=== PATIENT | female | born 1960 | race Caucasian/White ===

== ENCOUNTER 2023-08-06 11:04 | Outpatient (OUT) | payer BC, SELFPAY ==
--- NOTE | 2023-08-06 | CONS_ITS ---
CONSULTATION DATE: 08/06/2023 TO: Dr. [place] CHIEF COMPLAINT: Includes severe bilateral lower back pain, hip pain and leg pain. HISTORY OF PRESENT ILLNESS: Review of systems, past medical/surgical history were obtained and documented on the health questionnaire and is available upon request. She is a 63-year-old female, reports having had pain since 2021. It occurred spontaneously, increased gradually to its present state, which she complains of 8/10 pain, described as a dull, aching pain with a sharp component. It seems to increase with activities such as standing, walking and performing transitioning maneuvers. She feels most comfortable in the semi-recumbent position. She denies any change in bowel and bladder habits or new sensory motor change in the lower extremities. CURRENT MEDICATION: Includes Xanax 0.5 mg daily, Cymbalta 30 mg daily, Lyrica 300 mg daily. She reports the Lyrica does not seem to be helping her to any significant degree, but she reports some relief with the Cymbalta. EXAM: On examination, patient has no clinical symptoms consistent with radiculopathy or myelopathy involving the lower extremities. Patient had dysesthesia and hyperesthesia along the distribution of the superior gluteal nerve bilaterally, severe myofascial spasm of the gluteus medius bilaterally. Hamstrings were also quite painful with minimal stretching, as well as gastrocnemius complex. She had severe pain with lumbar facet joint loading maneuvers, occurring bilaterally, worse on the right than the left side and significant myofascial spasm of the erector spinae muscle occurring bilaterally. IMPRESSION: Patient with chronic pain secondary to multiple etiologies, neuritis involving the superior gluteal nerve, lumbosacral spondylosis at L4-5, L5-S1 clinically, occurring bilaterally; myofascial dysfunction involving the hamstrings primarily, gluteus medius, erector spinae and gastrocnemius/soleus complex. RECOMMENDATIONS: I recommend that she consider diagnostic bilateral superior gluteal nerve injection, followed by a diagnostic medial branch block under fluoroscopic guidance. She has significant etiology in both of these areas and will complete a pain diary for the first two hours post procedurally. I have added baclofen to her regimen, 10 mg pills, half to one pill t.i.d. I have asked her to wean off the Lyrica and reserve Xanax only as an as needed basis. Will start her on baclofen 10 mg pills, half a pill to one pill t.i.d. as stated earlier, aquatic therapy. I have gone over the details of the procedure with the patient. All her questions were answered. She agrees to proceed with the outlined plan. As part of providing excellent, safe, comprehensive care, the following was completed at our patient's visit: 1. A medication reconciliation and review to ensure accurate knowledge of current/active medications, including asking our patients to inform us about any dunx-rzh-yjdknal medications or herbal remedies/nutritional supplements/alternative remedies. 2. A review to specifically ensure our patients have had annual screening for: elevated body mass index (BMI, see intake chart for exact total), tobacco use, screening for depression, and screening for unhealthy alcohol use. When screening is concerning, patients are provided with education and the specific recommendation to discuss the concerning health issue and treatment options with their primary care provider. GENEVIEVE
== END 2023-08-06 11:05 | disposition home or self-care (01) ==
LOC: PM 11:04
PROVIDERS: Visit Provider Anesthesiology Pain Medicine
DX: M54.50 Low back pain, unspecified (principal); M25.551 Pain in right hip; M79.604 Pain in right leg; M79.605 Pain in left leg; M25.552 Pain in left hip; M47.816 Spondylosis without myelopathy or radiculopathy, lumbar region
CPT/HCPCS: G0463

== ENCOUNTER 2023-09-03 09:31 | Day surgery (SDC) | payer BC, SELFPAY ==
[2023-09-03 10:18] VITALS: BP 131/91; PULSE 54; TEMP 36.3; O2SAT 100
[2023-09-03 11:05] VITALS: BP 141/78; PULSE 76; O2SAT 94
[2023-09-03 11:06] VITALS: BP 161/77; PULSE 68; O2SAT 95
[2023-09-03] MEDS: BUPIVACAINE HCL 0.25% PF 25 MG/10 ML VIAL 4 ML INJ (11:10)
--- NOTE | 2023-09-03 11:35 | W.PM.PROCNOT ---
Date of procedure: 09/03/23 Pre-op diagnosis: Bilateral superior gluteal neuritis Post-op diagnosis: same as pre-op Procedure: Bilateral Superior gluteal nerve block, diagnostic Performed under fluoroscopic guidance Immediate complications none Anesthesia: none Solution used for injection: In each syringe, 2 milliliters 0.25% Marcaine 2.5 mL is used for injection for each side Time out process compliant After informed consent obtained patient was brought to the procedure room placed in the prone position skin overlying the area was prepped and draped in a sterile fashion using betadine. 25 gauge spinal needle Insert over each of the target areas identified in fluoroscopy corresponding needles were advanced Under fluoroscopic guidance until the target/targets encountered, no indication of intravascular or Intraneuronal needle tip placement. Solution injected.needles removed post procedurally. patient transferred to recovery room in stable condition to be discharged home after meeting criteria Anesthesia: Local Surgeon: Michelle Martinez Condition: stable
== END 2023-09-03 11:13 | disposition home or self-care (01) ==
LOC: SURGOUT 09:31
PROVIDERS: Visit Provider Anesthesiology Pain Medicine
DX: G57.81 Other specified mononeuropathies of right lower limb (principal); G57.82 Other specified mononeuropathies of left lower limb
CPT/HCPCS: 64450; J0665

== ENCOUNTER 2023-09-17 13:40 | Outpatient (OUT) | payer BC, SELFPAY ==
--- NOTE | 2023-09-17 | CONS_ITS ---
CONSULTATION DATE: 09/17/2023 TO: Sukhwinder [place] D.O. CHIEF COMPLAINT: Includes right hip pain, right buttock pain. HISTORY: She rates the pain as a 5/10, deep aching character with a stabbing component, increased with activities such as standing, walking and performing transitioning maneuvers. She feels most comfortable in the semi-recumbent position. Denies any change in bowel and bladder habits or new sensorimotor changes in the lower extremities. CURRENT MEDICATION: Includes baclofen 10 mg t.i.d. She reports it is ?worth taking?. Her MAEGAN on today?s visit was 48%. EXAM: Notable for patient having no clinical radiculopathy or myelopathy involving the lower extremities. Patient has significant dysesthesia and hyperesthesia along the distribution of the superior gluteal nerve. It appears to be more significant on the right than the left side. IMPRESSION: Our impression is patient appears to have bilateral superior gluteal nerve neuritis, worse on the right than the left side. RECOMMENDATIONS: I have asked her to continue with her Lyrica 300 mg daily and to proceed with a rhizotomy using radiofrequency ablation of the superior gluteal nerve, starting on the right side initially, then proceed with the contralateral side thereafter. Gone over the details of the procedure with the patient. All her questions answered. She agrees to proceed with the outline plan. As part of providing excellent, safe, comprehensive care, the following was completed at our patient's visit: 1. A medication reconciliation and review to ensure accurate knowledge of current/active medications, including asking our patients to inform us about any amkl-bki-dongjep medications or herbal remedies/nutritional supplements/alternative remedies. 2. A review to specifically ensure our patients have had annual screening for: elevated body mass index (BMI, see intake chart for exact total), tobacco use, screening for depression, and screening for unhealthy alcohol use. When screening is concerning, patients are provided with education and the specific recommendation to discuss the concerning health issue and treatment options with their primary care provider. GENEVIEVE
== END 2023-09-17 13:41 | disposition home or self-care (01) ==
LOC: PM 13:41
PROVIDERS: Visit Provider Nurse Practitioner
DX: M25.551 Pain in right hip (principal)
CPT/HCPCS: G0463

== ENCOUNTER 2023-09-24 07:54 | Day surgery (SDC) | payer BC, SELFPAY ==
--- OUTSIDE RECORDS SUMMARY | 2023-09-24 07:59 | XMS_ITS | CCD ---
Author Organization [facility] Care Team Providers Care Furniture Mover Name Role Phone Tab Salazar Attending Unavailabl e Miscellaneous, SJ Primary Care Unavailable Miscellaneous, SJ Consulting Unavailable Tab Salazar Attending Unavailabl e Miscellaneous, SJ Primary Care Unavailable Miscellaneous, SJ Consulting Unavailable Tab Salazar Attending Unavailabl e Miscellaneous, SJ Primary Care Unavailable Miscellaneous, SJ Consulting Unavailable Dory Wells Unavailable Unavailable Unavailable Jatin Saldana Unavailable Iza King Unavailable Salma Barbosa MD Attending Unavailable Dr. Dory Wells Referring Unavailable Cong Griffin Unavailable Edgar Stockton DO Primary Care Provider NATALEE PACHECO Attending Unavailable NATALEE PACHECO Attending Unavailable MAYA PENN Attending Unavailable NATALEE PACHECO Attending Unavailable CONG MEEKS Attending Unavailable EDGAR STOCKTON Referring Unavailable CONG MEEKS Referring Unavailable NATALEE PACHECO Attending Unavailable BROOKS ORTEGA L Attending Unavailable CUTLERBROOKS Attending Unavailable CUTLER BROOKS L Referring Unavailable OVITT, JORDI Referring Unavailable OVITT, JORDI Referring Unavailable OVITT, JORDI Referring Unavailable OVITT, JORDI Attending Unavailable Allergies Allergy Classification Reported Allergen(s) Allergy Type Date of Onset Reaction(s) Facility Macrolides (antibiotic) (1 source) Clarithromycin; Translations: [Clarithromycin TABS] Drug Allergy -[facility] Work Phone: Penicillins (antibiotic) (1 source) Penicillins; Translations: [Penicillins] [email or web address]: Sulfonamides (antibiotic) (1 source) Sulfonamides (Antibiotic); Translations: [Sulfa Drugs] [facility]: Unclassified (7 sources) Contrast Media Ready-Box MISC; Translations: [Contrast Media Ready-Box MISC] [facility]ergy to drug (finding) [email or web address] Work [facility]: (6 sources) Clarithromycin; Translations: [Clarithromycin TABS] [email or web address] Work Phone: (7 sources) Penicillins; Translations: [Penicillins] Allergy to drug (finding) 4 [facility] Repository (6 sources) Sulfonamides (Antibiotic); Translations: [Sulfa Drugs] Allergy to drug (finding) [email or web address] Work Phone: (5 sources) Penicillin Drug Allergy Unknown Friday Other (6 sources) Substance with sulfonamide structure and antibacterial mechanism of action (substance) Drug allergy 3 Unknown Friday Other (1 source) Penicillins Drug Allergy 3 Unknown [facility] (1 source) Sulfur; Translations: [SULFUR] Drug Allergy 4 [facility] Repository Medications Current Medications Medication Drug Class(es) Dates Sig (Normalized) Sig (Original) acyclovir 400 mg oral tablet (20 sources) Herpesvirus Nucleoside Analog DNA Polymerase Inhibitor, Herpes Simplex Virus Nucleoside Analog DNA Polymerase Inhibitor, Herpes Zoster Virus Nucleoside Analog DNA Polymerase Inhibitor Start: 12-03-2022 take 1 tablet by mouth in the morning acyclovir (Zovirax) 400 MG tablet Indications: Herpes Take 1 tablet (400 mg) by mouth in the morning. 90 tablet 1 12/03/2022 Active Start: 03-01-2015 take 1 tablet by kirstin th once daily as needed Acyclovir 400 MG Oral Tablet TAKE 1 TABLET DAILY PRN. Quantity: 0 Refills: 0 Ordered: 27-Apr-2015 DO Start : 01-Mar-2015 Active Zovirax Active Acyclovir Active ALPRAZolam 0.5 mg oral tablet (18 sources) Benzodiazepine Start: 02-28-2023 ALPRAZolam (Xa nax) 0.5 MG tablet Indications: Psychophysiological insomnia Take 1 tablet (0.5 mg) by mouth as needed at bedtime for anxiety 30 tablet 0 02/28/2023 Active Start: 07-22-2015 take 1 tablet by kirstin th once daily ALPRAZolam 0.25 MG Oral Tablet TAKE 1 TABLET DAILY. Quantity: 0 Refills: 0 Ordered: 22-Jul-2015 DO Start : 22-Jul-2015 Active ALPRAZolam Activ e aspirin 81 mg chewable tablet (8 sources) Platelet Aggregation Inhibitor, Nonsteroidal Anti-inflammatory Drug aspirin 81 MG chewable tablet Chew 81 mg 1 (one) time. 0 Active atorvastatin 80 mg oral tablet (18 sources) HMG-CoA Reductase Inhibitor Start: 024 take 1 tablet by mouth once daily at bedtime atorvastatin (Lipitor) 80 MG tablet Indications: Mixed hyperlipidemia (CMS/HCC) TAKE 1 TABLET BY MOUTH EVERY DAY AT BEDTIME 90 tablet 3 02/28/2023 Active take 1 tablet by mouth at bedtim e Atorvastatin Calcium 80 MG Oral Tablet TAKE 1 TABLET AT BEDTIME. Quantity: 30 Refills: 0 Ordered: 11-Dec-2017 DO Active Atorvastatin Mitchell cium Active Evelio Low Dose (10 sources) Evelio Low Dose Active bisoprolol fumarate 2.5 mg / hydroCHLOROthiazide 6.25 mg oral tablet (20 sources) Thiazide Diuretic, beta-Adrenergic Nabeel Start: 01-23-20 take 1 tablet by mouth once daily bisoprolol-hydroCHLO ROthiazide (Ziac) 2.5-6.25 MG tablet Indications: Benign hypertension (CMS/HCC) TAKE 1 TABLET BY MOUTH EVERY DAY 90 tablet 1 01/22/2023 Active Start: 01-05-2014 take 1 tablet by kirstin th once daily Bisoprolol-hydroCHLOROthiazide 2.5-6.25 MG Oral Tablet TAKE 1 TABLET DAILY DIRECTED. Quantity: 0 Refills: 0 Ordered: 05-Feb-2014 DO Start : 05-Jan-2014 Active take 1 tablet by kirstin th every twenty-four hours Ziac 5-6.25 MG 1 tablet Orally Once a da y Active Bisoprolol-hydro CHLOROthiazide Active 24 hr buPROPion hydrochloride 150 mg extended release oral tablet (1 source) Aminoketone take 1 tablet by mouth once daily buPROPion XL (Wellbutrin XL) 150 MG 24 hr tablet Take 150 mg by mouth 1 (one) time each day at the same time. 0 Active Calcium (10 sources) Phosphate Binder, Calcium Calcium 500 + D Active chlorhexidine gluconate 1.2 mg/ml mouthwash (1 source) Start: 12-21-2021 chlorhexidine (Peridex) 0.12 % solution Use 15 mL in the mouth or throat if needed. 0 12/21/2021 Active cinnamon bark 500 mg oral capsule (1 source) take 1 capsule by mouth in the morning cinnamon 500 MG capsule Take 500 mg by mouth in the morning. 0 Active clopidogrel 75 mg oral tablet (13 sources) P2Y12 Platelet Inhibitor Start: 11-01-2022 take 1 tablet by mouth once daily clopidogrel (Plavix) 75 MG tablet Indications: Occlusion and stenosis of left carotid artery TAKE 1 TABLET BY MOUTH EVERY DAY 90 tablet 3 11/01/2022 Active Start: 11-28-2016 take 1 tablet by kirstin th once daily Clopidogrel Bisulfate 75 MG Oral Tablet TAKE 1 TABLET BY MOUTH EVERY DAY Quantity: 90 Refills: 3 Ordered: 19-Jul-2020 Yudi Bowman Start : 28-Nov-2016 Active Coenzyme Q10 (10 sources) Coenzyme Q10 Act jael cyclobenzaprine hydrochloride 10 mg oral tablet (1 source) Muscle Relaxant Start: 11-02-19 take 1 tablet by mouth once daily at bedtime as needed cyclobenzaprine (Flexeril) 10 MG tablet Indications: Sacrococcygeal disorders, not elsewhere classified TAKE 1 TABLET BY MOUTH EVERY DAY AT BEDTIME NEEDED 40 tablet 0 11/01/2022 Active docosahexaenoic acid 120 mg / eicosapentaenoic acid 180 mg oral capsule (1 source) take 1 capsule by mouth once daily omega-3, EPA + DHA, (fish oil) 1000 MG capsule Take 1 capsule by mouth 1 (one) time each day at the same time. 0 Active Elderberry preparation (6 sources) take 1 capsule by mouth in the morning Elderberry 500 MG capsule Take 1 capsule by mouth in the morning. 0 Active Elderberry 500 M G as directed Orally Active gabapentin 300 mg oral capsule (10 sources) Anti-epileptic Agent take 1 capsule by mouth twice daily Gabapentin 300 MG 1 capsule Orally twice daily for 30 days G89.29 Chronic pain Active take 1 capsule by mo ut three times daily Gabapentin 100 MG 1 capsule Orally three times daily Active hydroCHLOROthiazide 25 mg oral tablet (13 sources) Thiazide Diuretic Start: 08-06-2022 take 1 tablet by mouth twice daily hydroCHLOROthiazide (HYDRODiuril) 25 MG tablet Indications: Benign hypertension (CMS/HCC) TAKE 1 TABLET BY MOUTH TWICE A DAY 180 tablet 3 08/06/2022 Active take 1 tablet by mouth once brianna y hydroCHLOROthiazide 25 MG Oral Tablet Take 1 tablet daily Quantity: 90 Refills: 3 Ordered: 11-Dec-2017 DO Active Microzide Active Hydrochlorothiazide-25 mg (10 sources) Hydrochlorothiaz jordyn-25 mg Active ibuprofen 600 mg oral tablet (1 source) Nonsteroidal Anti-inflammatory Drug Start: 12-21-2021 take 1 tablet by mouth every six hours ibuprofen 600 MG tablet Take 1 tablet by mouth every 6 (six) hours. 0 12/21/2021 Active levothyroxine sodium 0.125 mg oral tablet (18 sources) l-Thyroxine Start: 02-25-2023 take 1 tablet by mouth once daily Synthroid 125 MCG tablet Indications: Other specified hypothyroidism (CMS/HCC) TAKE 1 TABLET BY MOUTH EVERY DAY 90 tablet 3 02/25/2023 Active take 1 tablet by mouth once brianna y Synthroid 125 MCG Oral Tablet TAKE 1 TABLET DAILY DIRECTED. Quantity: 0 Refills: 0 Ordered: 11-Dec-2017 DO Active Synthroid Active Magnesium (10 sources) Magnesium Active metFORMIN hydrochloride 500 mg oral tablet (18 sources) Biguanide Start: 06-03-2015 take 1 tablet by mouth once daily metFORMIN (Glucophage) 500 MG tablet Indications: Controlled type 2 diabetes mellitus without complication, with long-term current use of insulin (CMS/HCC) TAKE 1 TABLET BY MOUTH EVERY DAY 90 tablet 3 07/25/2022 Active metFORMIN HCl Ac tive Neuriva - (5 sources) Neuriva - as dir ected Orally Active Milton 3 Fish Oil (10 sources) Milton 3 Fish Oil Active ondansetron 8 mg disintegrating oral tablet (1 source) Serotonin-3 Receptor Antagonist Start: 06-08-19 take 1 tablet by mouth every eight hours as needed for nausea ondansetron ODT (Zofran-ODT) 8 MG disintegrating tablet Take 8 mg by mouth every 8 (eight) hours if needed for nausea. 0 06/07/2022 Active predniSONE 20 mg oral tablet (11 sources) Start: 03-05-19 predniSONE (Deltasone) 20 MG tablet Indications: Lumbar back pain Take 2 tablets for 4 days, then take 1 tablet for 3 days by mouth 11 tablet 0 03/05/2023 Active take 1 tablet by kirstin every twenty-four hours predniSONE 20 MG 1 tablet Orally Once a day Not-Taking pregabalin 300 mg oral capsule (4 sources) Start: 04-01-2023 take 1 capsule by mouth in the morning pregabalin (Lyrica) 300 MG capsule Indications: Neuralgia and neuritis, unspecified Take 1 capsule (300 mg) by mouth in the morning and 1 capsule (300 mg) before bedtime. 60 capsule 0 04/01/2023 Active Start: 12-17-2022 End: 03-31-2023 take 1 capsule by mouth once daily in the morning pregabalin (Lyrica) 300 MG capsule Indications: Neuralgia and neuritis, unspecified TAKE 1 CAPSULE BY MOUTH EVERY MORNING AND TAKE 1 CAPSULE AT BEDTIME 60 capsule 0 12/17/2022 03/31/2023 Discontinued (Reorder) Start: 10-19-2022 take 1 capsule by [facility] twice daily Lyrica 150 MG Oral Capsule TAKE 1 CAPSULE TWICE DAILY. Quantity: 0 Refills: 0 Ordered: 19-Oct-2022 DO Start : 19-Oct-2022 Active Probiotic Daily (10 sources) Probiotic Daily Active 0.25 mg, 0.5 mg dose 1.5 ml semaglutide 1.34 mg/ml pen injector (1 source) Start: 06-12-2022 semaglutide (Ozempic, 0.25 or 0.5 MG/DOSE,) 2 MG/1.5ML solution pen-injector 0.5 mg Subcutaneous qweekly for 30 days 0 06/12/2022 Active ubidecarenone 200 mg oral capsule (1 source) take 1 capsule by mouth once daily coenzyme Q-10 200 MG capsule Take 1 capsule by mouth 1 (one) time each day at the same time. 0 Active Womens Daily Formula (10 sources) Womens Daily For santana Active Completed/Discontinued Medications Medication Drug Class(es) Dates Sig (Normalized) Sig (Original) Cinnamon Preparation (17 sources) Non-Standardized Food Allergenic Extract Cinnamon Active Cinnamon TABS Qu antity: 0 Refills: 0 Ordered: 29-May-2017 DO Active Co Q 10 CAPS (7 sources) Co Q 10 CAPS Meliton ntity: 0 Refills: 0 Ordered: 29-May-2017 DO Active magnesium oxide 400 mg oral tablet (2 sources) take 1 tablet by mouth once daily Magnesium Oxide 400 (240 Mg) MG Oral Tablet Take 1 tablet daily Quantity: 0 Refills: 0 Ordered: 29-May-2017 DO Active Multivital TABS (7 sources) Multivital TABS Quantity: 0 Refills: 0 Ordered: 29-May-2017 DO Active Milton 3 CAPS (7 sources) Milton 3 CAPS Meliton ntity: 0 Refills: 0 Ordered: 29-May-2017 DO Active Warfarin (10 sources) Vitamin K Antagonist Warfarin 5m g Not-Taking Problems Active Problems Problem Classification Problem Date Documented Date Episodic/Chronic Acquired foot deformities (2 sources) Acquired hallux rigidus; Translations: [Hallux rigidus, unspecified foot] Onset: 08-19-2018 09-26-2022 Chronic Anxiety disorders (1 source) Anxiety; Translations: [Anxiety disorder, unspecified] Onset: 12-07-2015 09-26-2022 Chronic Cataract (1 source) Nuclear senile cataract; Translations: [Age-related nuclear cataract, unspecified eye] Onset: 09-26-2022 09-26-2022 Chronic Coagulation and hemorrhagic disorders (1 source) Factor V deficiency; Translations: [Hereditary deficiency of other clotting factors] Onset: 12-07-2015 09-26-2022 Chronic Complications of surgical procedures or medical care (1 source) Postoperative hypothyroidism; Translations: [Postprocedural hypothyroidism] Onset: 01-12-2015 09-26-2022 Chronic Disorders of lipid metabolism (8 sources) Hyperlipidemia; Translations: [Other and unspecified hyperlipidemia] Onset: 01-12-2015 09-26-2022 Chronic Essential hypertension (8 sources) Essential hypertension; Translations: [Unspecified essential hypertension] Onset: 01-12-2015 09-26-2022 Chronic Glaucoma (1 source) Ocular hypertension; Translations: [Ocular hypertension, unspecified eye] Onset: 09-26-2022 09-26-2022 Chronic Headache; including migraine (1 source) Migraine; Translations: [Migraine, unspecified, not intractable, without status migrainosus] Onset: 06-03-2015 09-26-2022 Chronic Late effects of cerebrovascular disease (7 sources) Sequela of cerebrovascular accident; Translations: [Unspecified late effects of cerebrovascular disease] Chronic Occlusion or stenosis of precerebral arteries (20 sources) Symptomatic carotid artery stenosis; Translations: [Occlusion and stenosis of carotid artery without mention of cerebral infarction] Onset: 09-26-2022 09-26-2022 Chronic Other aftercare (7 sources) Postoperative visit; Translations: [Aftercare following surgery of the circulatory system, NEC] Episodic Other circulatory disease (7 sources) H/O: hypertension; Translations: [Personal history of other diseases of circulatory system] Episodic Other connective tissue disease (1 source) Neuropathy; Translations: [Neuralgia and neuritis, unspecified] 03-31-2023 Episodic Other eye disorders (1 source) Posterior vitreous detachment of left eye; Translations: [Vitreous degeneration, left eye] Onset: 09-26-2022 09-26-2022 Chronic Other nervous system disorders (10 sources) Chronic pain; Translations: [Other chronic pain] Chronic Other nervous system disorders (4 sources) Other chronic pain Chronic Other nutritional; endocrine; and metabolic disorders (1 source) Obese class II; Translations: [Obesity, unspecified] Onset: 05-17-2016 09-26-2022 Chronic Other nutritional; endocrine; and metabolic disorders (1 source) Obesity; Translations: [Obesity, unspecified] Onset: 12-07-2015 09-26-2022 Chronic Other nutritional; endocrine; and metabolic disorders (7 sources) H/O: raised blood lipids; Translations: [Personal history of other endocrine, metabolic, and immunity disorders] Episodic Residual codes; unclassified (1 source) Obstructive sleep apnea syndrome; Translations: [Obstructive sleep apnea (adult) (pediatric)] Onset: 02-24-2016 09-26-2022 Chronic Spondylosis; intervertebral disc disorders; other back problems (20 sources) Solitary sacroiliitis; Translations: [Sacroiliitis, not elsewhere classified] Onset: 09-26-2022 Chronic Spondylosis; intervertebral disc disorders; other back problems (20 sources) Radiculopathy, lumbar region; Translations: [Sciatica] Onset: 09-26-2022 Episodic Thyroid disorders (1 source) Hypothyroidism; Translations: [Hypothyroidism, unspecified] Onset: 09-26-2022 09-26-2022 Chronic Unclassified (2 sources) Z48.812 [id number]/82 Onset: 12-11-2017 Past or Other Problems Problem Classification Problem Date Documented Date Episodic/Chronic Diabetes mellitus without complication (1 source) Type 2 diabetes mellitus without complication; Translations: [Type 2 diabetes mellitus without complications] Onset: 09-26-2022 Resolved: 09-26-2022 09-26-2022 Chronic Diabetes mellitus without complication (9 sources) Prediabetes; Translations: [Other abnormal glucose] Onset: 06-03-2015 09-26-2022 Episodic Other circulatory disease (1 source) History of cerebrovascular accident without residual deficits; Translations: [Personal history of transient ischemic attack (TIA), and cerebral infarction without residual deficits] Onset: 12-07-2015 09-26-2022 Episodic Other liver diseases (1 source) Elevated levels of transaminase & lactic acid dehydrogenase; Translations: [Elevated levels of transaminase & lactic acid dehydrogenase] Onset: 05-16-2016 09-26-2022 Episodic Other non-traumatic joint disorders (1 source) Hip pain; Translations: [Pain in unspecified hip] Onset: 09-26-2022 09-26-2022 Episodic Other skin disorders (1 source) Atrophic condition of skin; Translations: [Other atrophic disorders of skin] Onset: 09-26-2022 09-26-2022 Episodic Residual codes; unclassified (1 source) Insomnia; Translations: [Insomnia, unspecified] Onset: 01-12-2015 09-26-2022 Episodic Results Test Name Value Interpretation Reference Range Facility [facility] 08-10-2023 Refill [id number] Carolynn Givens 1960 F Date Provider Department Center 08/10/2023 JORDI PAVON [facility] [email or web address] SURG [facility] Fl Family History Problem Relation Age of Onset Colon cancer Mother Diabetic kidney disease Father Factor V Leiden deficiency Other Comments: siblings and grandchildren Family Status - Relation Status Age at Mother Father Other Reason for Visit and Comments: Med Change Request [411] Normal [facility] 36on 07-19-2023 36 Discussed with clement nt that I had reviewed her imaging with Dr. Augustin. 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 She has not previously had SI joint injections. He would suggest that she try these first. She did have 3 previous epidural steroid injections. Would like a referral to a different pain management provider. Referred her to [email or web address] pain management. Provided phone number and advised her to call for an appointment if she does not hear from them in the next 1 to 2 weeks. Also wondering what else she can try for pain. She is on aspirin and Plavix. We will try starting with duloxetine 30 mg daily in the morning with option to increase dose depending on tolerability and efficacy. We did discuss that if she were to have surgery, would be a lumbar surgery with hardware-specifically screws and rods. Would suggest that she exhaust conservative options before proceeding with surgery. Verbalizes understanding and is in agreement. Normal [facility] Erroneous Encounteron 2023 Erroneous Encounter [id number] Kvng Givens 1960 F Date Provider Department Center 07/19/2023 [id number], [facility] SURG Second Fl Family History Problem Relation Age of Onset Colon cancer Mother Diabetic kidney disease Father Factor V Leiden deficiency Other Comments: siblings and grandchildren Family Status - Relation Status Age at Mother Father Other Reason for Visit and Comments: Error (VOID this visit) [77] Normal [facility] Telephoneon 07-19-2023 Telephone [id number] Kvng Givens 1960 F Date Provider Department Center 07/19/2023 [id number], [facility] SURG Second Fl Family History Problem Relation Age of Onset Colon cancer Mother Diabetic kidney disease Father Factor V Leiden deficiency Other Comments: siblings and grandchildren Family Status - Relation Status Age at Mother Father Other Normal [facility] Consulton 07-18-2023 Consult [id number] Kvng Givens 1960 F Date Provider Department Center 07/18/2023 [id number], [facility] SURG Second Fl Family History Problem Relation Age of Onset Colon cancer Mother Diabetic kidney disease Father Factor V Leiden deficiency Other Comments: siblings and grandchildren Family Status - Relation Status Age at Mother Father Other Level of Service:35450 ME OFFICE/OUTPATIENT NEW MODERATE MDM 45 MINUTES Reason for Visit and Comments: Consult [484] - lumbosacral spondylosis without myelopathy-will bring disk Normal [facility] MR LUMBAR SPINE WO CONTRASTo n 07-12-2023 MR LUMBAR SPINE WO CONTRAST EXAM: MR LUMBAR SPINE WO CONTRAST History: Lumbar back pain; DDD; Radiculopathy; Lumbago with sciatica Technique: Multiplanar multisequence MRI of the lumbar spine was obtained without intravenous contrast. Comparison: MRI of the lumbar spine January 30, 2022 Findings: The conus medullaris ends normally. The alignment of the lumbar spine is anatomic. The vertebral body heights are well maintained. There is no aggressive bone marrow signal abnormality. Disc desiccation throughout the lumbar spine. Intervertebral disc heights are maintained. L1-L2: Small disc bulge. Mild facet arthropathy. Ligamentum flavum thickening. Mild spinal canal stenosis. Mild bilateral neural foraminal stenosis. L2-L3: Small disc bulge. Mild facet arthropathy. Ligamentum flavum thickening. Mild spinal canal stenosis. Mild bilateral neural foraminal stenosis. L3-L4: Small disc bulge. Mild bilateral facet arthropathy. Ligamentum flavum thickening. Mild spinal canal stenosis. Mild left and moderate right neuroforaminal stenosis. L4-L5: Small disc bulge. Advanced facet arthropathy. Ligamentum flavum thickening. Moderate spinal canal stenosis has progressed since prior examination. Moderate bilateral neural foraminal stenosis L5-S1: Small disc bulge. Moderate to advanced facet arthropathy. Mild bilateral neural foraminal stenosis. No spinal canal stenosis. Visualized paravertebral soft tissues appear within normal limits. IMPRESSION: Degenerative changes of the lumbar spine as detailed. ELECTRONICALLY SIGNED BY: Bam Li, DO Normal Not Available Office Visit ([facility])on 10-19-2022 Follow-up visit Diagnoses/Problems Assessed Stenosis of right carotid artery without infarction (433.10) (I65.21) Carotid occlusion, left (433.10) (I65.22) Patient Discussion/Summary By signing my name below, IFilomena Scribe, attest that this documentation has been prepared under the direction and in the presence of Dr. Salma Barbosa. All medical record entries made by the Scribe were at my direction and personally dictated by me. I have reviewed the chart and agree that the record accurately reflects my personal performance of the history, physical exam, discussion and plan. Provider Impressions 62yo female known carotid disease. She remains asymptomatic and no focal deficits noted on exam. Recent duplex reveals less than 50% KARYN stenosis and known LICA occlusion. This is unchanged from previous. She is to continue medical management and keep taking aspirin, atorvastatin and plavix. She is to follow up in 1 year with repeat carotid duplex. Chief Complaint The patient presents to the office today for a routine follow up exam. The patient presents for evaluation of carotid artery stenosis. History of Present Illness 62yo female presenting for carotid follow up. She denies lateralizing symptoms. She has a known left carotid occlusion and h/o right CEA. She continues to take aspirin, plavix and atorvastatin. Review of Systems Constitutional: no fever and no chills. Psychiatric: no emotional problems. Neurological: no headache, no seizures, no numbness, no syncope and no limb weakness. Eyes: no eye problems. ENT: no throat symptoms and no hoarseness. Cardiovascular: no chest pain and no palpitations. Respiratory: no shortness of breath, no wheezing, no cough and no hemoptysis. Gastrointestinal: no abdominal pain, no constipation, no nausea, no diarrhea and no vomiting. Genitourinary: no dysuria and no hematuria. Musculoskeletal: no arthralgias and no myalgias. Endocrine: no endocrine problems. Hematologic/Lymphatic: no lymphadenopathy. Integumentary: no rashes and no skin lesions. Vascular: no claudication, no rest pain, no ulceration and no varicose veins. All other systems have been reviewed and are negative for complaint. 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) Postop carotid endarterectomy surveillance, encounter for (V58.73) (Z48.812) Prediabetes (790.29) (R73.03) Pre-op evaluation (V72.84) (Z01.818) Recurrent carotid stenosis, right (433.10) (I65.21) Stenosis of right carotid artery without infarction (433.10) (I65.21) Symptomatic carotid artery stenosis without infarction (433.10) (I65.29) Past Medical History Problems History of hyperlipidemia (V12.29) (Z86.39) History of hypertension (V12.59) (Z86.79) Surgical History Problems History of Carotid Thromboendarterectomy History of Section History of Neuroplasty Decompression Median Nerve At Carpal Tunnel History of Thyroid Surgery Jw-Thyroidectomy Family History Father Family history of Abdominal aortic aneurysm without rupture Sibling Family history of diabetes mellitus (V18.0) (Z83.3) Social History Problems Minimum alcohol consumption Never smoker Non-smoker (V49.89) (Z78.9) Occasional alcohol use Allergies Medication Clarithromycin TABS Recorded By: Maia Duarte; 02/08/2014 9:35:07 AM Contrast Media Ready-Box MISC Recorded By: Viri Sandoval; 11/15/2016 4:31:51 PM Penicillins Recorded By: Maia Duarte; 02/08/2014 9:35:07 AM Sulfa Drugs Recorded By: Maia Duarte; 02/08/2014 9:35:07 AM Current Meds Medication NameInstruction Acyclovir 400 MG Oral TabletTAKE 1 TABLET DAILY PRN. ALPRAZolam 0.25 MG Oral TabletTAKE 1 TABLET DAILY. Aspirin 81 MG Oral Tablet ChewableCHEW AND SWALLOW 1 TABLET DAILY. Atorvastatin Calcium 80 MG Oral TabletTAKE 1 TABLET AT BEDTIME. Bisoprolol-hydroCHLOROthia zide 2.5-6.25 MG Oral TabletTAKE 1 TABLET DAILY DIRECTED. Cinnamon TABS Clopidogrel Bisulfate 75 MG Oral TabletTAKE 1 TABLET BY MOUTH EVERY DAY Co Q 10 CAPS hydroCHLOROthiazide 25 MG Oral TabletTake 1 tablet daily Lyrica 150 MG Oral CapsuleTAKE 1 CAPSULE TWICE DAILY. metFORMIN HCl - 500 MG Oral TabletTAKE 1 TABLET DAILY DIRECTED. Multivital TABS Milton 3 CAPS Synthroid 125 MCG Oral TabletTAKE 1 TABLET DAILY DIRECTED. Vitals Vital Signs Recorded: 19Oct2022 10:50AM Heart Rate78 Vhkrbxmb616 Qoziiwbgm96 Height5 ft 4 in Qsnslg582 lb BMI Tkegdybbit04.14 kg/m2 BSA Calculated2.07 Tobacco Useb) No Falls Screening (Age 18+)a) No falls within the last year O2 Jmjrvmjhqd39 Physical Exam Constitutional - No acute distress, well appearing and well nourished. Psychiatric - Orientation to person, place, and time. Appropriate mood and affect Neurologic - Cranial nerves intact, motor strength was normal, sensation (more content not included)... Normal Touchworks Tobacco Screening.on 023 Fall risk assessment a) No falls within the last year [facility] [place] [facility] Work Phone: Tobacco use status [facility] b) No [facility] [place] [facility] Work Phone: Blood Pressure Cuff Sizeon 0 07-28-2021 Fall risk assessment a) No falls within the last year [facility] [place] [facility] Work Phone: Tobacco use status [facility] b) No [facility] [place] [facility] Work Phone: Blood Pressure Cuff Size Adult [facility] [place] [facility] Work Phone: Screening Mammogram, Bilater shaquille 07-19-2021 Screening Mammogram, Bilateral EXAMINATION: Screening Mammogram CLINICAL HISTORY: Unremarkable. COMPARISON: Dating back to 05/07/2018 TECHNIQUE: 2D and 3D Tomosynthesis of the right and left breasts was performed. FINDINGS: There is a minimal amount of residual fibroglandular tissue within each breast. There are no suspicious masses, areas of suspicious microcalcifications or areas of architectural distortion identified. No evidence of skin thickening. IMPRESSION: BIRADS 1 : NEGATIVE, NORMAL INTERVAL FOLLOW UP. MAMMOGRAPHY IS VERY IMPORTANT TO YOUR HEALTH. THE CURRENT [employer] GUIDELINES RECOMMEND ANNUAL MAMMOGRAPHY BEGINNING AT AGE 40. THIS FACILITY UTILIZES A REMINDER SYSTEM TO ENSURE ALL PATIENTS RECEIVE A REMINDER NOTIFICATION AT THE APPROPRIATE TIME BASED ON THE RECOMMENDATIONS OF THIS EXAM. 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 ACCREDITED BY THE APR AND FDA. Report reported and signed by Blanche Marion on 07/24/2021 1115 Normal [facility] Nuclear Powerplant Supervisor VASC LAB Carotid Artery Dupl ex Ultrasounon 07-14-2021 VASC LAB Carotid Artery Duplex Ultrasoun [facility] [address] [facility] [place] [address] Vascular Lab Report Carotid Artery Duplex Ultrasound Patient Name: CAROLYNN GIVENS Reading Physician: [id number] Salma Barbosa MD Study Date: 07/14/2021 Referring Physician: [id number] SALMA BARBOSA MRN/PID: [id number] PCP: Accession/Order#: [id number] CC Report to: Date of : 1960 Technologist: Carolynn Olvera RDMS, RVT Gender: F Technologist 2: Admission Status: Outpatient Location Performed: [facility] Diagnosis/ICD: I65.22-Occlusion and stenosis of left carotid artery Procedure/CPT: 08614 Cerebrovascular Carotid Duplex scan complete-84614 Pertinent History: HTN, CAD and Carotid surgery. Right CEA. CONCLUSIONS: Right Carotid: Findings are consistent with less than 50% stenosis of the right proximal ICA. Laminar flow seen by color Doppler. Right external carotid artery appears patent with no evidence of stenosis. No evidence of hemodynamically significant stenosis of the right common carotid artery. The right vertebral artery is patent with antegrade flow. No evidence of hemodynamically significant stenosis in the right subclavian. Left Carotid: Findings are consistent with an occlusion of the left ICA. No flow seen by color Doppler. There is a very short segment of proximal ICA flow. Left external carotid artery appears patent with no evidence of stenosis. No evidence of hemodynamically significant stenosis of the left common carotid artery. The left vertebral artery is patent with antegrade flow. No evidence of hemodynamically significant stenosis in the left subclavian. Endarterectomy: Patent right carotid endarterectomy site following endarterectomy. Comparison: Compared with study from 06/22/2020, no significant change. Right internal carotid stenosis has changed based on 2021 updated IAC interpretation criteria. Imaging AND Doppler Findings: Right Plaque Morph: No plaque identified in the right carotid artery. Left Plaque Morph: The proximal left internal carotid artery demonstrates ulcerative plaque. The mid left internal carotid artery demonstrates ulcerative plaque. The distal left internal carotid artery demonstrates ulcerative plaque. Right Left PSV EDV PSV EDV 84 cm/s 30 cm/s CCA P 63 cm/s 11 cm/s 93 cm/s 26 cm/s CCA D 42 cm/s 7 cm/s 143 cm/s 50 cm/s ICA P 36 cm/s 11 cm/s 119 cm/s 40 cm/s ICA M 109 cm/s 46 cm/s ICA D 121 cm/s 20 cm/s ECA 116 cm/s 27 cm/s 66 cm/s 24 cm/s Vertebral 51 cm/s 22 cm/s Right Left PSV Waveform PSV Waveform 96 cm/s Subclavian Proximal 97 cm/s Right Left ICA/CCA Ratio 1.5 0.9 [id number] Salma Barbosa MD Final Normal [facility] XR Spine Lumbar 4+ Views*on 06-26-2021 XR Spine Lumbar 4+ Views* CLINICAL HISTORY: Lower back pain. COMPARISON: None. RESULT: Counting Reference: L4-L5 is the level of the iliac crest. 5 lumbar type vertebral bodies Possible grade 1 minimal anterolisthesis of L4 on L5 and L5 on S1. No acute fracture. Vertebral body heights maintained. Multilevel disc space narrowing with endplate osteophytes. Facet degenerative changes. Sacrum appears intact. Sacroiliac joints and visualized pelvis intact. Visualized hips unremarkable. Soft tissues unremarkable. No other significant abnormality. IMPRESSION: No acute findings. Degenerative changes lumbar spine. Report reported and signed by Elvis Cochran on 06/26/2021 1617 Normal [facility] CAROTID DUPLEX SCAN (HL)on CAROTID DUPLEX SCAN () CAROLYNN GIVENS [id number] 1960 12/11/2017 57y [id number] Sugey [id number] Sugey Brandon op Outpatient CARDIOVASCULAR LAB Referring: Tab Salazar J. Reading: Tab Salazar MD, RPVI, FACS RZ Procedure Info: 26201 - Duplex scan of extracranial arteries; complete bilateral study : ICD-10 Diagnosis Codes: Z48.812 Encounter for surgical aftercare following surgery on the circulatory system Carotid Duplex () History History of hypertension. Currenlty anticoagulated. History of right endarterectomy. Carotid Duplex: The right bifurcation contained irregular plaque, homogeneous in consistency. The right internal carotid artery contained a large amount of ulcerative plaque, homogeneous in consistency. The left common carotid artery contained smooth plaque, homogeneous in consistency. The left bifurcation contained smooth plaque, homogeneous in consistency. The left internal carotid artery contained plaque, homogeneous in consistency. The left external carotid artery showed no evidence of plaque. Carotid Duplex There was no evidence of stenosis of the right common carotid artery. There was a 70% or greater stenosis in the right internal carotid artery. The right external carotid artery was patent, within normal limits. The right vertebral artery was patent with antegrade flow. [facility] CAROLYNN GIVENS [id number] [address] [id number] [birth year] Tab Salazar MD CAROTID DUPLEX SCAN There was no evidence of stenosis in the right subclavian artery. There was no evidence of stenosis in the left common carotid artery. Unable to obtain a Doppler signal in the left internal carotid artery which may be suggestive of occlusion. The left external carotid artery was patent, within normal limits. The left vertebral artery was patent with antegrade flow. There was no evidence of stenosis in the left subclavian artery. Carotid Duplex Right Carotid PSV CCA P 72.7 cm/sec CCA D 58.6 cm/sec ICA P 241 cm/sec ICA M 211 cm/sec ICA D 104 cm/sec ECA P 82.1 cm/sec Vertebral 59.7 cm/sec SCA P 118 cm/sec R ICA/CCA 4.11 ratio Left Carotid PSV CCA P 36.9 cm/sec CCA D 29 cm/sec ICA P 39.3 cm/sec ECA P 73.3 cm/sec Vertebral 61.7 cm/sec SCA P 123 cm/sec Right Carotid EDV CCA P 24 cm/sec CCA D 20.5 cm/sec ICA P 99.5 cm/sec ICA M 75.9 cm/sec ICA D 40.3 cm/sec ECA P 16.4 cm/sec Vertebral 19.3 cm/sec Left Carotid EDV CCA P 9.82 cm/sec CCA D 6.43 cm/sec ICA P 8.79 cm/sec ECA P 18.8 cm/sec Vertebral 22.8 cm/sec Tab Salazar MD, YASMIN, [facility]12/11/2017 14:13:45 [facility] GIVENSCAROLYNN CARLSON [id number] [address] [address] [id number] [birth year] Tab Salazar MD CAROTID DUPLEX SCAN Normal [facility] CAROTID DUPLEX SCAN (HL)05-29-2017 CAROTID DUPLEX SCAN (HL) CAROLYNN GIVENS [id number] 1960 05/29/2017 57y [id number] NaN [id number] NaN F Outpatient CARDIOVASCULAR LAB Referring: Tab Salazar J. Reading: Tab Salazar MD, [facility] Procedure Info: 62189 - Duplex scan of extracranial arteries; complete bilateral study : adequate ICD-10 Diagnosis Codes: Z48.812 Encounter for surgical aftercare following surgery on the circulatory system Carotid Duplex () History History of hypertension. Currenlty anticoagulated. History of right endarterectomy. Carotid Duplex: The right common carotid artery showed no evidence of plaque. The right bifurcation showed no evidence of plaque. The right internal carotid artery contained a moderate amount of ulcerative plaque, heterogeneous in consistency. The right external carotid artery showed no evidence of plaque. The left common carotid artery showed no evidence of plaque. The left bifurcation showed no evidence of plaque. The left internal carotid artery contained a large amount of irregular plaquecalcified. The left external carotid artery showed no evidence of plaque. Carotid Duplex There was no evidence of stenosis of the right common carotid artery. There was a 70% or greater stenosis in the right internal carotid artery. The right external carotid artery was patent, within normal [facility] CAROLYNN GIVENS [id number] [address] [address] [address] [id number] [birth year] Tab Salazar MD CAROTID DUPLEX SCAN limits. The right vertebral artery was patent with antegrade flow. There was no evidence of stenosis in the right subclavian artery. There was no evidence of stenosis in the left common carotid artery. There was a near occlusion noted in the left internal carotid. The left external carotid artery was patent, within normal limits. The left vertebral artery was patent with antegrade flow. There was no evidence of stenosis in the left subclavian artery. Trickle flow within the proximal LICA. Carotid Duplex Right Carotid PSV CCA P 84.9 cm/sec CCA D 86.4 cm/sec ICA P 283 cm/sec ICA M 207 cm/sec ICA D 170 cm/sec ECA P 135 cm/sec Vertebral 59.8 cm/sec SCA P 122 cm/sec R ICA/CCA 3.28 ratio Left Carotid PSV CCA P 56.9 cm/sec CCA D 49.2 cm/sec ICA P 61 cm/sec ECA P 105 cm/sec Vertebral 70.4 cm/sec SCA P 86.8 cm/sec Right Carotid EDV CCA P 18.9 cm/sec CCA D 26.7 cm/sec ICA P 110 cm/sec ICA M 62.9 cm/sec ICA D 58.1 cm/sec ECA P 21.6 cm/sec Vertebral 17.6 cm/sec Left Carotid EDV CCA P 9.38 cm/sec CCA D 12.9 cm/sec ICA P 15.2 cm/sec ECA P 24.4 cm/sec Vertebral 21.1 cm/sec Tab Salazar MD, RPVI, [facility]05/29/2017 15:11:15 [facility] CAROLYNN GIVENS [id number] [place] [address] [id number] [birth year] Tab Salazar MD CAROTID DUPLEX SCAN Normal [facility] Vital Signs Date Time Vital Sign Value Performing Clinician Facility 10-19-2022 10:50-0400 Body height 162.56 cm Dory Wells Work Phone: ZC-Bhhqtocqwg-Ueomalk e 320 Work Phone: 10-19-2022 10:50-0400 Body mass index (BMI) [Ratio] 39.14 kg/m2 Dory Wells Work Phone: NY-Yybvykhuec-Iwzdsxj e 320 Work Phone: 10-19-2022 10:50-0400 Body surface area Derived from formula 2.07 m2 Dory Wells Work Phone: TX-Dbmcmwlocs-Hstuvju e 320 Work Phone: 10-19-2022 10:50-0400 Body weight 103.42 kg Dory Wells Work Phone: IG-Swvofddsea-Fvasgku e 320 Work Phone: 10-19-2022 10:50-0400 Diastolic blood pressure 80 mm[Hg] Dory Wells Work Phone: XG-Wybopnqvrc-Fyjncwr e 320 Work Phone: 10-19-2022 10:50-0400 Heart rate 78 /min Dory Wells Work Phone: YU-Adohgvsptg-Mhlibna e 320 Work Phone: 10-19-2022 10:50-0400 SaO2% (BldA) [Mass fraction] 96 % Dory Wells Work Phone: AD-Eqkivxwrou-Exfurvq e 320 Work Phone: 10-19-2022 10:50-0400 Systolic blood pressure 132 mm[Hg] Dory Wells Work Phone: AU-Fawfocigwi-Lpgqtfe e 320 Work Phone: 05-14-2022 13:00-0400 Diastolic blood pressure 70 mm[Hg] Jatin Saldana Other Friday Other 05-14-2022 13:00-0400 SaO2% (BldA) [Mass fraction] 98 % Jatin Saldana Other Friday Other 05-14-2022 13:00-0400 Systolic blood pressure 120 mm[Hg] Jatin Saldana Other Friday Other 05-09-2022 14:30-0400 Body weight 102.06 kg Iza Blades Other Friday Other 05-09-2022 14:30-0400 Diastolic blood pressure 100 mm[Hg] Iza Blades Other Friday Other 05-09-2022 14:30-0400 Systolic blood pressure 140 mm[Hg] Iza Blades Other Friday Other 04-24-2022 09:15-0500 Diastolic blood pressure 84 mm[Hg] Jatin Saldana Other Friday Other 04-24-2022 09:15-0500 SaO2% (BldA) [Mass fraction] 98 % Jatin Shana Other Friday Other 04-24-2022 09:15-0500 Systolic blood pressure 130 mm[Hg] Jatin Shana Other Friday Other 03-26-2022 12:45-0500 Diastolic blood pressure 70 mm[Hg] Jatin Shana Other Friday Other 03-26-2022 12:45-0500 SaO2% (BldA) [Mass fraction] 99 % Jatin Saldana Other Friday Other 03-26-2022 12:45-0500 Systolic blood pressure 118 mm[Hg] Jatin Shana Other Friday Other 03-07-2022 16:00-0500 Body weight 102.6 kg Jatin Saldana Other Friday Other 03-07-2022 16:00-0500 Diastolic blood pressure 84 mm[Hg] Jatin Shana Other Friday Other 03-07-2022 16:00-0500 SaO2% (BldA) [Mass fraction] 95 % Jatin Saldana Other Friday Other 03-07-2022 16:00-0500 Systolic blood pressure 130 mm[Hg] Jatin Shana Other Friday Other 07-28-2021 11:14-0400 Body height 162.56 cm Dory Wells Work Phone: XO-Cnvqmnabgu-Zukmjnf e 320 Work Phone: 07-28-2021 11:14-0400 Body mass index (BMI) [Ratio] 35.02 kg/m2 Dory Wells Work Phone: GV-Gxeekvkxyt-Glzbpsh e 320 Work Phone: 07-28-2021 11:14-0400 Body surface area Derived from formula 1.97 m2 Dory Wells Work Phone: BE-Hycobgpikn-Mtvojhj e 320 Work Phone: 07-28-2021 11:14-0400 Body weight 92.53 kg Dory Wells Work Phone: LG-Waoxvwzvok-Tgzfzql e 320 Work Phone: 07-28-2021 11:14-0400 Diastolic blood pressure 74 mm[Hg] Dory Wells Work Phone: TE-Shwaijacpp-Cemxblk e 320 Work Phone: 07-28-2021 11:14-0400 Heart rate 82 /min Dory Wells Work Phone: DI-Kbcepwtvlt-Flyqpov e 320 Work Phone: 07-28-2021 11:14-0400 SaO2% (BldA) [Mass fraction] 95 % Dory Wells Work Phone: RZ-Kgumwczbkh-Yocbagz e 320 Work Phone: 07-28-2021 11:14-0400 Systolic blood pressure 150 mm[Hg] Dory Wells Work Phone: FG-Umbrmrmnuk-Cutquaw e 320 Work Phone: 06-22-2020 13:49-0400 Body height 160.02 cm Dory Wells Work Phone: [facility] Work Phone: 06-22-2020 13:49-0400 Body mass index (BMI) [Ratio] 38.62 kg/m2 Dory Wells [facility] Work Phone: 06-22-2020 13:49-0400 Body surface area Derived from formula 2.01 m2 Dory Wells [facility]: [facility] Work Phone: 06-22-2020 13:49-0400 Body weight 98.88 kg Dory Wells [facility] Work Phone: 06-22-2020 13:49-0400 Diastolic blood pressure 82 mm[Hg] Dory Wells [facility]: [facility] Work Phone: 06-22-2020 13:49-0400 Heart rate 65 /min Dory Wells [facility] Work Phone: 06-22-2020 13:49-0400 SaO2% (BldA) [Mass fraction] 98 % Dory Wells Work [facility]: [facility] Work Phone: 06-22-2020 13:49-0400 Systolic blood pressure 132 mm[Hg] Dory Wells Work [facility]: [facility] Work Phone: Encounters Encounter Date Encounter Type Care Provider Facility Start: 07-23-2023 End: 07-23-2023 ambulatory BROOKS ORTEGA Not Available Start: 07-18-2023 End: 07-18-2023 ambulatory [facility] Start: 07-18-2023 End: 07-18-2023 ambulatory [facility] Start: 07-12-2023 End: 07-12-2023 ambulatory CONG MEEKS Not Available Start: 05-15-2023 End: 05-15-2023 ambulatory CONG MEEKS Not Available Start: 05-06-2023 End: 05-06-2023 ambulatory NATALEE A PETITTI Not Available Start: 05-01-2023 End: 05-01-2023 ambulatory MAYA PENN Not Available Start: 04-17-2023 End: 04-17-2023 ambulatory NATALEE A PETITTI Not Available Start: 03-31-2023 Refill Cong Meeks P A Work Phone: [facility] 230 Comment on above: Neuralgia and neurit is, unspecified Start: 03-05-2023 End: 03-05-2023 ambulatory NATALEE A PETITTI Not Available Start: 01-30-2023 End: 01-30-2023 ambulatory NATALEE A PETITTI Not Available Start: 10-19-2022 Office outpatient visit 15 minutes Dory Wells Work Phone: [facility] [facility] Work Phone: Start: 10-19-2022 Patient encounter procedure Dory Wells Work Phone: XE-Zqfsejnerj-Slieikrd 320 Work Phone: Start: 10-19-2022 ambulatory Salma Barbosa MD Faci lity:[id number] Start: 05-22-2022 End: 05-22-2022 ambulatory Iza King Other Friday Other Start: 05-22-2022 Telephone encounter Iza Brandon [facility] Neurosurgery Start: 05-17-2022 End: 05-17-2022 ambulatory Jatin Saldana Other Friday Other Start: 05-17-2022 Telephone encounter Jatin Shana [facility] Start: 05-14-2022 End: 05-14-2022 ambulatory Jatincarlos Saldana Other Friday Other Start: 05-14-2022 Office outpatient visit 25 minutes Jatin Shana [facility] Start: 05-09-2022 End: 05-09-2022 ambulatory Iza Blades Other Friday Other Start: 05-09-2022 Office outpatient ne w 45 minutes Iza Blades [facility] Start: 05-01-2022 (PROC) PROCEDURE Jatin Alcantar [facility] Start: 05-01-2022 End: 05-01-2022 ambulatory Jatincarlos Saldana Other Friday Other Start: 04-24-2022 End: 04-24-2022 ambulatory Jatincarlos Saldana Other Friday Other Start: 04-24-2022 Office outpatient visit 25 minutes Jatincarlos Saldana [facility] Start: 04-03-2022 (PROC) PROCEDURE Jatin Alcantar [facility] Start: 04-03-2022 End: 04-03-2022 ambulatory Jatincarlos Saldana Other Friday Other Start: 03-26-2022 End: 03-26-2022 ambulatory Jatin Shana Other Friday Other Start: 03-26-2022 Office outpatient visit 25 minutes Jatincarlos Saldana [facility] Start: 03-13-2022 (PROC) PROCEDURE Jatin Alcantar [facility] [place] Start: 03-13-2022 End: 03-13-2022 ambulatory Jatin Shana Other Friday Other Start: 03-07-2022 End: 03-07-2022 ambulatory Jatin Shana Other [facility] [employer] Other Start: 03-07-2022 FQ visit new patient Jatin Saldana [facility] Start: 07-28-2021 Office outpatient visit 15 minutes Dory Wells Work Phone: [facility] [facility] Work Phone: Start: 07-28-2021 Patient encounter procedure Dory Wells Work Phone: ZK-Dmlnoalfax-Lghrtryr 320 Work Phone: Start: 02-01-2021 Chart Update Dory Wells Work Phone: [facility] [facility] Work Phone: Start: 07-19-2020 Rx Renewal Dory Wells Work Phone: [facility] Work Phone: Start: 05-21-2018 Patient encounter procedure Tab Salazar Facility:[facility] Start: 12-11-2017 Patient encounter procedure Tab Salazar Facility:[facility] Start: 05-29-2017 Patient encounter procedure Tab Salazar Facility:[facility] Patient encounter status Dory Wells Work Phone: [facility] Work Phone: Procedures Date Procedure Procedure Detail Performing Clinician Start: 09-17-2022 Mammography Cong LAU Work Phone: Carotid Thromboendarterectomy Dory Wells Work Phone: section Dory soriano Work Phone: Neuroplasty and hilliard sposition of median nerve at carpal tunnel Dory Wells Work Phone: Thyroid Surgery Jw-Thyroidectomy Dory Wells Work Phone: Plan of Treatment Date Care Activity Detail Author Start: 09-13-2024 Screening for malign ant neoplasm of colon [facility] Start: 02-03-2024 End: 02-03-2024 Patient encounter procedure 02/03/2024 8:30 AM EST Office Visit [facility] [address] [place] [address] Natalee Pacheco MD [address] [place] [address] [facility] Start: 09-18-2023 Screening for malign ant neoplasm of breast Mammogram [facility] Start: 04-19-2023 Hemoglobin A1c measurement Diabetes: Hemoglobin A1C [facility] Start: 04-17-2023 End: 04-17-2023 Patient encounter procedure 04/17/2023 8:30 AM EST Office Visit [facility] [address] [place] [id number] Natalee Pacheco MD [address] [place] [address] [facility] Start: 12-29-2022 Glaucoma screening Diabetes: R etinopathy Screening [facility] Start: 09-07-2022 FUV, Provider: Salma Barbsoa, Status: Pen, Time: 11:45 AM FUV, Provider: Salma Barbosa, Status: Pen, Time: 11:45 AM [facility] Work Phone: Start: 09-07-2022 CAROTID, Provider: [facility], Status: Pen, Time: 10:00 AM CAROTID, Provider: [facility], Status: Pen, Time: 10:00 AM [facility] Work Phone: Start: 08-31-2022 Urine screening for protein Diabetes: Urine Protein Screening [facility] Start: 08-03-2022 FUV, Provider: Salma Barbosa, Status: Pen, Time: 10:00 AM [facility], Provider: Salma Barbosa, Status: Pen, Time: 10:00 AM [place] [address] Work Phone: Start: 08-03-2022 CAROTID, Provider: [facility], Status: Pen, Time: 9:00 AM CAROTID, Provider: [facility], Status: Pen, Time: 9:00 AM [facility] Work Phone: Start: 06-21-2021 FUV, Provider: Tab Salazar, Status: Pen, Time: 2:00 PM FUV, Provider: Tab Salazar, Status: Pen, Time: 2:00 PM [facility] Work Phone: Start: 06-21-2021 CAROTID, Provider: [facility], Status: Pen, Time: 1:00 PM CAROTID, Provider: [facility], Status: Pen, Time: 1:00 PM [facility] Work Phone: Start: 1990 Screening for malign ant neoplasm of cervix [facility] Start: 1981 Screening for malign ant neoplasm of cervix Pap Smear [facility] Start: 1960 Screening for malign ant neoplasm of colon [facility] Immunizations Immunization Date Immunization Notes Care Provider Corina sauer 11-29-2022 Influenza, injectabl e, Madin Katie Canine Kidney, preservative free, quadrivalent Cong Meeks PA Work Phone: [facility] 11-30-2021 Influenza, injectabl e, Madin Clarkson Canine Kidney, preservative free, quadrivalent Cong Meeks PA Work Phone: [facility] 11-21-2020 Influenza, injectabl e, Madin Clarkson Canine Kidney, preservative free, quadrivalent Cong Meeks PA Work Phone: [facility] 12-27-2019 zoster vaccine recombinant Cong Meeks PA Work Phone: [facility] 11-02-2019 Influenza, injectabl e, Madin Katie Canine Kidney, preservative free, quadrivalent Cong Meeks PA Work Phone: [facility] 10-24-2019 zoster vaccine recombinant Cong Meeks PA Work Phone: [facility] 10-23-2019 zoster vaccine recombinant Cong Meeks PA Work Phone: [facility] 11-26-2018 Influenza, injectabl e, Madin Clarkson Canine Kidney, quadrivalent with preservative Cong Meeks PA Work Phone: [facility] 11-26-2018 influenza, injectabl e, madin katie canine kidney, preservative free Cong Meeks PA Work Phone: [facility] 12-04-2017 influenza, injectabl e, madin katie canine kidney, preservative free Cong Meeks PA Work Phone: [facility] 12-13-2016 seasonal influenza, intradermal, preservative free Cong Meeks PA Work Phone: [facility] 12-27-2015 influenza, injectabl e, quadrivalent, preservative free Cong Meeks PA Work Phone: [facility] 12-27-2015 seasonal influenza, intradermal, preservative free Cong Meeks PA Work Phone: [facility] 12-26-2015 seasonal influenza, intradermal, preservative free Cong Meeks PA Work Phone: [facility] Payers Date Payer Category Payer Unknown 2022 [facility] [id number] 2014 Unknown [id number] 1960 Unknown [id number] 2.16. [id number] 1960 Unknown [id number] 2.16.84 [id number] 1960 Unknown [id number] 2.16.84 [id number] 1960 Unknown [id number] 2.16.84 [id number] 1960 Unknown [id number] 2.16.84 [id number] 1960 Unknown [id number] 2.16.84 0.1.431527.3.579.2.1259 1960 Unknown [id number] 2.16.84 [id number] 1960 Unknown [id number] 2.16.84 [id number] 1960 Unknown [id number] 2.16.84 0.1.902895.3.579.2.1259 1960 Unknown [id number] 2.16.84 0.1.400575.3.579.2.9 1960 Unknown [id number] 2.16.840 .[id number] Unknown [id number] 2.16.8 [id number] Unknown [id number] 2.16.8 [id number] Unknown [id number] 2.16.8 [id number] Social History Date Type Detail Facility Start: 09-26-2022 End: 03-05-2023 [facility] Work Phone: Start: 09-26-2022 End: 03-05-2023 Sex Assigned At Friday Other Start: 09-26-2022 Tobacco smoking status NHIS Never smoked tobacco [facility] Start: 09-26-2022 Tobacco use and exposure Smokeless tobacco non-user [facility] Start: 03-05-2023 Alcohol intake Current drinker of alcohol (finding) [facility] Within the last year , have you been afraid of your partner or ex-partner? No [facility] How often do you att end anabaptist or spiritism services? Patient refused [facility] Are you now , , , , never or living with a partner? [facility] How often to you hav e a drink containing alcohol? 2-4 times a month [facility] How many standard drinks containing alcohol do you have on a typical day? 1 or 2 [facility] How often do you hav e 6 or more drinks on 1 occasion? Never [facility] Do you feel stress - tense, restless, nervous, or anxious, or unable to sleep at night because your mind is troubled all the time - these days [OSQ] To some extent [facility] (I/We) worried wheth er (my/our) food would run out before (I/we) got money to buy more. Never true [facility] Start: 1960 Sex Assigned At Female [facility] Start: 09-11-2022 Gender identity Identifies as female gender (finding) [facility] Start: 09-11-2022 Sexual orientation Heterosexual (finding) [facility] Clinical Notes 07-28-2020 to 07-18-2023 Note Date & Type Note Facility 07-18-2023 Note SUBJECTIVE: Chief complaint: Back pain. History of present illness: Consultation referred by primary care provider JUDI Mae, for back pain. Reports has been having symptoms for 2 years without apparent injury. Pain is in her low back and radiates posteriorly down both legs to her knees. She also has some left lateral calf pain and pain into the plantar surface of her left foot. Reports her buttocks feel heavy. She does have some tingling that radiates posteriorly down both legs to the plantar surface of both feet. Symptoms do not vary with time of day. Somewhat better with sitting with her legs elevated and with flexion of her lumbar spine. She does note there are 2 areas in her low back that are tender at times and improved with massage. Worse with walking (difficult to walk from parking lot into building), riding, standing, steps. Not associated with bowel or bladder changes or incontinence, falls, imbalance. Has seen a chiropractor previously for these complaints without improvement. Did do physical therapy 1 year ago at [facility] without lasting or substantial improvement. Did see pain management provider, Dr. Colbert, at [facility] and had 3 epidural steroid injections, most recently about 18 months ago, without lasting or substantial improvement. Has not had previous back surgery. Has tried medications, including gabapentin, and Lyrica without substantial improvement. States takes Tylenol with minimal improvement. 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 Used to enjoy boating and Jet Skiing, though states for the past 2 years, she has been unable to participate in these activities due to her symptoms. Review of systems: Constitutional: Denies fever, chills. Head: Denies headaches. Eyes: Denies vision change. Ears: Denies change in hearing. Nose/throat: Denies dysphagia. Cardiovascular: Denies chest pain. Respiratory: Denies cough, shortness of breath. Extremities: Denies edema. Genitourinary: Denies incontinence or retention. Gastrointestinal: Denies bowel incontinence. Neurologic: Denies weakness, reports tingling. Denies unsteady gait, falls. Musculoskeletal: Denies neck pain, reports back pain. Past Medical History: Diagnosis Date Carotid artery disease (CMS/HCC) left carotid 100% occluded, had right CEA Factor 5 Leiden mutation, heterozygous (CMS/HCC) Stroke (CMS/HCC) 27 days after right CEA; 2015 Past Surgical History: Procedure Laterality Date ARTERY SURGERY CEA on right, Dr. Salazar CARPAL TUNNEL RELEASE Right Social History Tobacco Use Smoking status: Never Passive exposure: Never Smokeless tobacco: Never Substance Use Topics Alcohol use: Not Currently Drug use: Never Family History Problem Relation Name Age of Onset Colon cancer Mother Diabetic kidney disease Father Factor V Leiden deficiency Other siblings and grandchildren OBJECTIVE: Medications: acyclovir ALPRAZolam aspirin atorvastatin bisoproloL-hydrochlorothiazide clopidogrel hydroCHLOROthiazide MULTIVIT,[id number] ORAL NEURIVA PLUS BRAIN PERFORMANCE ORAL omega-3 fatty acids-fish oil pregabalin saccharomyces boulardii Synthroid tablet Current Outpatient Medications: acyclovir (Zovirax) 400 mg tablet, Take 400 mg by mouth in the morning., Disp: , Rfl: ALPRAZolam (Xanax) 0.5 mg tablet, TAKE 1 TABLET (0.5 MG) BY MOUTH NEEDED AT BEDTIME FOR ANXIETY, Disp: , Rfl: atorvastatin (Lipitor) 80 mg tablet, Take 80 mg by mouth at bedtime., Disp: , Rfl: B6/folic/B12/coffee/phosphatid (NEURIVA PLUS BRAIN PERFORMANCE ORAL), Take by mouth., Disp: , Rfl: bisoproloL-hydrochlorothiazide (Ziac) 2.5-6.25 mg tablet, Take 1 tablet by mouth in the morning., Disp: , Rfl: clopidogrel (Plavix) 75 mg tablet, Take 75 mg by mouth in the morning., Disp: , Rfl: hydroCHLOROthiazide (HYDRODiuril) 25 mg tablet, Take 25 mg by mouth 2 times daily., Disp: , Rfl: MULTIVIT,[id number] ORAL, Take by mouth., Disp: , Rfl: omega-3 fatty acids-fish oil (Fish OiL) 360-1,200 mg capsule, Take 1 capsule by mouth once daily as directed., Disp: , Rfl: pregabalin (Lyrica) 300 mg capsule, Take 300 mg by mouth in the morning., Disp: , Rfl: saccharomyces boulardii (Florastor) 250 mg capsule, Take 250 mg by mouth in the morning and at bedtime., Disp: , Rfl: Synthroid 125 mcg tablet, Take 125 mcg by mouth in the morning., Disp: , Rfl: aspirin 81 mg EC tablet, Take 81 mg by mouth at bedtime., Disp: , Rfl: Allergies: Allergies Allergen Reactions Penicillins Anaphylaxis Sulfur Rash Exam: Vitals reviewed: Heart Rate: [72] 72 BP: (149)/(79) 149/79 No intake/output data recorded. No intake/output data recorded. Accompanied by today. Constitutional: In no apparent distress. Cardiovascular: Heart sounds regular rate and rhythm without appreciable murmur. Chest: Lung sounds clear to auscultation bilaterally. Respirations regular and nonlabored. (more content not included)... [facility] 05-14-2022 Evaluation note Encounter Date Diagnosis Assessment Notes Apr, Sacroiliitis (ICD-10 - M46.1) Continue to wear insoles as provided by innovation manager. If pain persists, we can consider proceeding with a bilateral sacroiliac joint injection under fluoroscopic guidance. Apr, Lumbosacral spondylosis (ICD-10 - M47.817) 61 year old female here for follow up status post left L4 and L5 transforaminal epidural steroid injection under fluoroscopic guidance. Patient reports 80-90% relief of her left lower etxremity pain following procedure. She voices complaints of low back pain. She was recently seen by Dr. King and surgical intervention is not recommended at this time. Anatomy of spine discussed in detail with patient in regards to patients condition. Patient is a candidate for a bilateral lumbar facet medial branch nerve block under fluoroscopic guidance. Risks and benefits of procedure explained to patient; patient verbalizes understanding. Apr, Lumbar radiculopathy (ICD-10 - M54.16) Patient reports 80-90% relief of her left lower extremity pain following procedure. She currently denies lower extremoty pain Apr, Chronic pain (ICD-10 - G89.29) Follow up after procedure. Patient is encouraged to hold her Plavix for 7 days and Aspirin for 5 days prior to procedure. Friday Other 03-22-2023 Evaluation note* Encounter Date Diagnosis Assessment Notes Treatment Notes Treatment Clinical Notes Apr, Sciatica, right side (ICD-10 - M54.31) Apr, Sciatica, left side (ICD-10 - M54.32) Friday Other 03-20-2023 Reason for referral (narrative)* Reason 05/09/22 @ 1:30 gurrola rgical consultation for lumbar radiculopathy of L4-5, not improving with epidural injections Diagnosis 1 Lumbar radiculopathy (M54.16) Referral Organization [facility] Referring Provider First Name Jatin Referring Provider Last Name Shana Referring Provider Specialty Pain Medici ne Referred Organization [facility] Referred Provider Iza King Referred Address [address] [place] [phone] Referred Provider Specialty Neurological Surgery Referral Priority Routine Referral Appointment Date 2022-05-09 General Notes Denise Kwan 04:47:59 PM >received today, note locked, sent P2P Jayde Lawrence 05/01/2022 11:37:06 AM >pt is scheduled 05/09/22 Other 03-07-2023 Evaluation note* Encounter Date Diagnosis Assessment Notes Treatment Notes Treatment Clinical Notes Apr, Lumbar radiculopathy (ICD-10 - M54.16) 61 year old female here for follow up status post left L4 and L5 transforaminal epidural steroid injection under fluoroscopic guidance. Patient reports 25% relief of the burning sensation of the left lower extremity. She notes she felt 50-60% pain relief for 10 days following the procedure. She voices complaints of a constant ache down the posterior aspect of the left lower extremity to the foot. She also complains of pain and a heavy sensation in the lower back. She feels her pain is negatively impacting her activities of daily living and sleep pattern. Anatomy of spine as well as different treatment options were discussed in detail with patient in regards to patients condition. I recommend the patient see a neurosurgeon for consultation as she seems to have very short-term relief following epidural steroid injections. I also recommend we proceed with another left L4 and L5 transforaminal epidural steroid injection under fluoroscopic guidance. Risks and benefits of procedure explained to patient; patient verbalizes understanding. In the meantime, I will increase her Gabapentin to 300 mg twice daily. Apr, Sacroiliitis (ICD-10 - M46.1) In the future if the pain persists, we can consider proceeding with a bilateral sacroiliac joint injection under fluoroscopic guidance Apr, Lumbosacral spondylosis (ICD-10 - M47.817) In the future if the pain persists, we can consider proceeding with a bilateral lumbar facet MBB followed by a RFA if applicable under fluoroscopic guidance. Apr, Chronic pain (ICD-10 - G89.29) Follow up after procedure. Patient is encouraged to hold her Plavix for 7 days and Aspirin for 5 days prior to procedure. Friday Other 02-06-2023 Evaluation note* Encounter Date Diagnosis Assessment Notes Treatment Notes Treatment Clinical Notes Mar, Lumbar radiculopathy (ICD-10 - M54.16) 61 year old female here for follow up status post interlaminar epidural steroid injection at the L4-5 level under fluoroscopic guidance. Patient reports 50% pain relief following procedure. She complains of low back pain with radiation down the posterior aspect of bilateral lower extremities, worse on the left. Anatomy of spine as well as different treatment options were discussed in detail with patient in regards to patients condition. I recommend we proceed with a left L4 and L5 transforaminal epidural steroid injection under fluoroscopic guidance. Risks and benefits of procedure explained to patient; patient verbalizes understanding. Mar, Sacroiliitis (ICD-10 - M46.1) In the future if the pain persists, we can consider proceeding with a bilateral sacroiliac joint injection under fluoroscopic guidance Mar, Lumbosacral spondylosis (ICD-10 - M47.817) In the future if the pain persists, we can consider proceeding with a bilateral lumbar facet MBB followed by a RFA if applicable under fluoroscopic guidance. Mar, Chronic pain (ICD-10 - G89.29) Continue with current treatment plan. Patient is encouraged to hold her Plavix for 7 days and Aspirin for 5 days prior to procedure. Friday Other 01-18-2023 Evaluation note* Encounter Date Diagnosis Assessment Notes Treatment Notes Treatment Clinical Notes Feb, Lumbar radiculopathy (ICD-10 - M54.16) 61 year old female presents with complaints of low back pain with radiation down the posteriod aspect of the bilateral lower extremities to the feet. She states pain has been present for more than 1 year with no known inciting trauma and has been progressively worse over the last 6 months. She was recently prescribed Gabapentin with some relief however she does not like the way this makes her feel. She reports minimal relief following physical therapy approx. 2 months ago. She continues exercises she learned at physical therapy at home. She feels pain can negatively impact her daily activities and sleeping pattern. Prior to examining the patient, I reviewed progress notes from her referring physician Cong Meeks. I also independently reviewed previous imaging of the lumbar spine which shows degenerative changes as well as facet arthropathy. Anatomy of spine discussed in detail with patient in regards to patients condition. Patient is a candidate for a L4-5 epidural steroid injection under fluoroscopic guidance. Risks and benefits of procedure explained to patient; patient verbalizes understanding. Feb, Sacroiliitis (ICD-10 - M46.1) In the future if the pain persists, we can consider proceeding with a bilateral sacroiliac joint injection under fluoroscopic guidance Feb, Lumbosacral spondylosis (ICD-10 - M47.817) In the future if the pain persists, we can consider proceeding with a bilateral lumbar facet MBB followed by a RFA if applicable under fluoroscopic guidance. Feb, Chronic pain (ICD-10 - G89.29) Continue with current treatment plan. Patient is encouraged to hold her Aspirin 5-7 days prior to procedure. 18 Feb, 2022 Other Medical deci pal making shows a new problem to me with further workup planned or suggested with the potential for extensive treatment options that were considered with the most applicable given this patient's situation as noted above. Treatment options considered include a combination of physical therapy approaches, pharmacologic management, and interventional procedures. Those most applicable to the patient were discussed at this time. Risk of complications and/or morbidity and mortality is high given that acute and chronic pain poses a threat to life and bodily function if undertreated, poorly treated or with failure to maintain adequate treatment and timely followup. Given the serious and fluctuating nature of pain with extensive consideration for whenever pain changes, there always remains the possibility of prolonged functional impairment requiring constant patient reassessment and high-level medical decision making. The amount and complexity of data reviewed is high given that patient labs, radiology reports, and other test were obtained, reviewed and summarized as applicable from the physician portal and/or outside medical records. Pertinent positive and negative findings were considered in medical decision-making. Friday Other 06-17-2022 History of Present illness [id number] female presenting for carotid followup. She was last seen by Dr. Salazar last year. Duplex reveals less than 50% stenosis on the right with unchanged velocity. She has a h/o left carotid occlusion. She is taking aspirin, plavix and atorvastatin.[facility] Work Phone: 1(767) 642-634806-11-2021 History of Present illness [id number] female presenting for carotid followup. She was last seen by Dr. Salazar last year. Duplex reveals less than 50% stenosis on the right with unchanged velocity. She has a h/o left carotid occlusion. She is taking aspirin, plavix and atorvastatin.-[facility] [facility] Work Phone: 1(740) 820-157206-10-2021 History of Present illness [id number] female presenting for carotid followup. She was last seen by Dr. Salazar last year. Duplex reveals less than 50% stenosis on the right with unchanged velocity. She has a h/o left carotid occlusion. She is taking aspirin, plavix and atorvastatin.[facility] Work Phone: Evaluation noteNo InformationNort [facility] Other Evaluation note* Diagnosis Neuralgia and neuritis, unspecified documented in this encounter [facility] - Reported* Type Description Date Medical History diabetes mallitus Medical History herpes Medical History high blood pressure Medical History obesity Medical History stroke Surgical History carotid endarterectomy Surgical History carpal tunnel release Surgical History thyroidectomy Hospitalization History see above surg. hx. [place] [facility] Other History of Present illness [id number] female presenting for carotid followup. She denies lateralizing symptoms. She has a known leftcarotid occlusion. She continues to take aspirin, plavix and atorvastatin.[facility] Work Phone: History of Present illness [id number] female presenting for carotid follow up. She denies lateralizing symptoms. She has a known left carotid occlusion and h/o right CEA. She continues to take aspirin, plavix and atorvastatin.-[facility] [facility] Work Phone: Summary Purpose Family History No Family History Records FoundUnknown Family Member Name Dates Details Family history of diabetes m ellitus: Sibling(V18.0, Z83.3) Status:Active Abdominal aortic aneurysm wi thout rupture: Father Status:Active Unknown Family Member Name Dates Details Family history of diabetes m ellitus: Sibling(V18.0, Z83.3) Status:Active Abdominal aortic aneurysm wi thout rupture: Father Status:Active Unknown Family Member Name Dates Details Family history of diabetes m ellitus: Sibling(V18.0, Z83.3) Status:Active Abdominal aortic aneurysm wi thout rupture: Father Status:Active Unknown Family Member Name Dates Details Family history of diabetes m ellitus: Sibling(V18.0, Z83.3) Status:Active Abdominal aortic aneurysm wi thout rupture: Father Status:Active Unknown Family Member Name Dates Details Family history of diabetes m ellitus: Sibling(V18.0, Z83.3) Status:Active Abdominal aortic aneurysm wi thout rupture: Father Status:Active Unknown Family Member Name Dates Details Family history of diabetes m ellitus: Sibling(V18.0, Z83.3) Status:Active Abdominal aortic aneurysm wi thout rupture: Father Status:Active Unknown Family Member Name Dates Details Family history of diabetes m ellitus: Sibling(V18.0, Z83.3) Status:Active Abdominal aortic aneurysm wi thout rupture: Father Status:Active Advance Directives No Advanced Directives Records FoundNo Advanced Directives Records FoundNo Advanced Directives Records FoundNo Advanced Directives Records FoundNo Advanced Directives Records FoundNo Advanced Directives Records FoundNo Advanced Directives Records Found Chief Complaint Follow Up- Carotid Ultrasound 07/14/2021* The patient presents to the office today for a routine follow up exam. * The patient presents for evaluation of carotid artery stenosis. * The patient presents to the office today for a routine follow up exam. * The patient presents for evaluation of carotid artery stenosis. * The patient presents to the office today for a routine follow up exam. * The patient presents for evaluation of carotid artery stenosis. Additional Source Comments INFORMATION SOURCE (unrecogn ized section and content) DATE CREATED AUTHOR [place] [facility] [place] CREATED AUTHOR AUTHOR'S ORGANIZ ATION 07/15/2021 [facility] DATE CREATED AUTHOR AUTHOR'S ORGANIZ ATION 07/24/2021 [facility] DATE CREATED AUTHOR AUTHOR'S ORGANIZ ATION 10/20/2022 [facility] DATE CREATED AUTHOR AUTHOR'S ORGANIZ ATION 10/21/2022 [employer] DATE CREATED AUTHOR AUTHOR'S ORGANIZ ATION 07/28/2023 [facility] EPIC DATE CREATED AUTHOR AUTHOR'S ORGANIZ ATION 08/12/2023 [facility] REASON FOR VISIT (unrecogniz ed section and content) Reason Onset Date Comments Med Refill 03/31/2023 Care Teams (unrecognized sec tion and content) Furniture Mover Relationship Specialty Start Date End Date Edgar Stockton DO [address] [place] [address] PCP - General Family Medicine 11/29/22 Cong Meeks PA [address] [place] [address] Physician [facility] 08/10/22 FOR RECORDS PERTAINING TO PATIENTS WHO ARE OR HAVE BEEN ENROLLED IN A CHEMICAL DEPENDENCY/SUBSTANCEABUSE PROGRAM, SOME INFORMATION MAY BE OMITTED. This clinical summary was aggregated from multiple sources. Caution should be exercised in using it in the provision of clinical care. This summary normalizes information from multiple sources, and as a consequence, information in this document may materially change the coding, format and clinical context of patient data. In addition, data may be omitted in some cases. CLINICAL DECISIONS SHOULD BE BASED ON THE PRIMARY CLINICAL RECORDS. [facility]. provides no warranty or guarantee of the accuracy or completeness of information in this document.
[2023-09-24 08:16] VITALS: BP 152/92; PULSE 68; TEMP 36.6; O2SAT 98
[2023-09-24] MEDS: 0.9 % SODIUM CHLORIDE 500 ML IV (08:20)
[2023-09-24] MEDS: METHYLPREDNISOLONE ACETATE 40 MG/ML VIAL INJ (09:19)
[2023-09-24] MEDS: BUPIVACAINE HCL 0.25% PF 25 MG/10 ML VIAL 8 ML INJ (09:19)
[2023-09-24] MEDS: LIDOCAINE HCL 2% 400 MG/20 ML MDV 14 ML INJ (09:19)
[2023-09-24 09:23] VITALS: BP 141/97; PULSE 68; TEMP 36.6; O2SAT 98
[2023-09-24 09:26] VITALS: BP 140/81; PULSE 69; TEMP 36.6; O2SAT 96
--- NOTE | 2023-09-24 09:42 | W.PM.PROCNOT ---
Date of procedure: 09/24/23 Pre-op diagnosis: Bilateral superior gluteal neuritis Post-op diagnosis: same as pre-op Procedure: Bilateral Superior gluteal nerve Radiofrequency ablation PreOp diagnosis: pain secondary to superior gluteal neuritis Postop diagnosis same Under fluoroscopic guidance Rhizotomy was created using radio frequency ablation at 80?C for 90 seconds 1 to 2 lesions created at each site. Post lesioning injection of 2 mL each of 0.25% Marcaine and 2% lidocaine with Depo-Medrol 40mg. 0.5 to 1 mL injected at each site IV in place yes If Intravenous fluids: NS at KVO Anesthesia local 2% lidocaine for Anesthesia Other: MAC Timeout process compliant After informed consent obtained. Patient brought to the procedure room placed in the prone position skin overlying the area was prepped and draped in a sterile fashion using betadine. 25 gauge needle was used to create a skin wheal over each of the targeted areas utilizing 2% lidocaine. A rhizotomy needle with a 10 mm active tip was inserted over each of the anesthetized areas and directed towards four different areas in the distribution of the superior gluteal nerve, accomplished under fluoroscopic guidance. After encountering the same we had positive sensory stimulation, negative motor stimulation was noted. lesions were then created. Post lesioning, steroid solution was injected needles removed. Patient was transferred to recovery room in stable condition to be discharged home after meeting criteria. Anesthesia: MAC Surgeon: Michelle Martinez Condition: stable
== END 2023-09-24 09:40 | disposition home or self-care (01) ==
LOC: SURGOUT 07:55
PROVIDERS: Visit Provider Anesthesiology Pain Medicine
DX: G57.83 Other specified mononeuropathies of bilateral lower limbs (principal)
CPT/HCPCS: 64640; J0665; J1010; J2250; J2704

== ENCOUNTER 2023-11-05 12:18 | Outpatient (OUT) | payer BC, SELFPAY ==
--- NOTE | 2023-11-05 | CONS_ITS ---
CONSULTATION DATE: 11/05/2023 TO: Dr. Bob Calixto CHIEF COMPLAINT: Includes mild low back pain, right worse than left. HISTORY: Dull aching in character, rated 0-3/10 pain, increased with activity such as standing, walking and performing transitioning maneuvers. She feels most comfortable in the semi-recumbent position. CURRENT MEDICATION: Includes baclofen 10 mg daily p.r.n. She is able to take 10 mg up to t.i.d. p.r.n. and Lyrica 300 mg at h.s. Her MAEGAN on today?s visit is 12%. EXAMINATION: Notable for patient having no clinical radiculopathy or myelopathy involving the lower extremities. She presents wearing a right knee brace. She had no clinical radiculopathy or myelopathy on examination involving the lower extremities. She did have mild to moderate pain with lumbar facet loading maneuvers, worse on the right than the left side, from L4 through S1 with associated myofascial spasm and myalgia of the erector spinal muscle. IMPRESSION: Our impression is patient appears to have chronic pain secondary to residual lumbar facet loading pain clinically, secondary to lumbar spondylosis, right greater than left, from L4 through S1 with associated myalgia and spasm of the erector spinae muscle. RECOMMENDATIONS: I recommend she continue with her current use of baclofen and Lyrica as prescribed. We will be happy to continue to prescribe the medication. We will kindly request if your office could overtake the prescribing of the baclofen and Lyrica; however, we will be happy to do so if you still wish. Will otherwise see the patient back in the office in six months? time or sooner if needed, only for the sole purpose of refilling her medication. As part of providing excellent, safe, comprehensive care, the following was completed at our patient's visit: 1. A medication reconciliation and review to ensure accurate knowledge of current/active medications, including asking our patients to inform us about any [id number] medications or herbal remedies/nutritional supplements/alternative remedies. 2. A review to specifically ensure our patients have had annual screening for: elevated body mass index (BMI, see intake chart for exact total), tobacco use, screening for depression, and screening for unhealthy alcohol use. When screening is concerning, patients are provided with education and the specific recommendation to discuss the concerning health issue and treatment options with their primary care provider. GENEVIEVE
--- OUTSIDE RECORDS SUMMARY | 2023-11-05 12:38 | XMS_ITS | CCD ---
Author Organization [facility] Care Team Providers Care Cargo Mate Name Role Phone Tab Salazar Attending Unavailabl e Miscellaneous, SJ Primary Care Unavailable Miscellaneous, SJ Consulting Unavailable Tab Salazar Attending Unavailabl e Miscellaneous, SJ Primary Care Unavailable Miscellaneous, SJ Consulting Unavailable Tab Salazar Attending Unavailabl e Miscellaneous, SJ Primary Care Unavailable Miscellaneous, SJ Consulting Unavailable Dory Santana Unavailable Unavailable Unavailable Jatin Saldana Unavailable Iza King Unavailable Salma Barbosa MD Attending Unavailable Dr. Dory Santana Referring Unavailable Cong Griffin Unavailable Edgar Stockton DO Primary Care Provider OVITT, JORDI Referring Unavailable OVITT, JORDI Referring Unavailable OVITT, JORDI Referring Unavailable NICK, JORDI Attending Unavailable SALMA BARBOSA Referring Unavailable DORY SANTANA Primary Care Unavailable NATALEE PACHECO Attending Unavailable NATALEE PACHECO Attending Unavailable MAYA PENN Attending Unavailable NATALEE PACHECO Attending Unavailable CONG MEEKS Attending Unavailable EDGAR STOCKTON Referring Unavailable CONG MEEKS Referring Unavailable BROOKS ORTEGA Attending Unavailable BROOKS ORTEGA Attending Unavailable BROOKS ORTEGA Referring Unavailable TRACEY RICCI Attending Unavailable TRACEY RICCI Referring Unavailable BROOKS ORTEGA Attending Unavailable BROOKS ORTEGA Referring Unavailable POCMONTANA DAVENPORT Attending Unavailable POCMONTANA DAVENPORT Referring Unavailable PETITTI, NATALEE A Attending Unavailable Allergies Allergy Classification Reported Allergen(s) Allergy Type Date of Onset Reaction(s) Facility Macrolides (antibiotic) (1 source) Clarithromycin; Translations: [Clarithromycin TABS] Drug Allergy [facility] [employer] Work Phone: Penicillins (antibiotic) (1 source) Penicillins; Translations: [Penicillins] Drug Allergy [facility] [employer] Work Phone: Sulfonamides (antibiotic) (1 source) Sulfonamides (Antibiotic); Translations: [Sulfa Drugs] Drug Allergy [facility] [employer] Work Phone: Unclassified (7 sources) Contrast Media Ready-Box MISC; Translations: [Contrast Media Ready-Box MISC] Allergy to drug (finding) [facility] [employer] Work Phone: (6 sources) Clarithromycin; Translations: [Clarithromycin TABS] [facility]: (7 sources) Penicillins; Translations: [Penicillins] Allergy to drug (finding) 4 [facility] Repository (6 sources) Sulfonamides (Antibiotic); Translations: [Sulfa Drugs] [facility] drug (finding) [facility] Work [facility]: (5 sources) Penicillin Drug Allergy Unknown [facility] Other (6 sources) Substance with sulfonamide structure and antibacterial mechanism of action (substance) Drug allergy 3 Unknown [facility] Other (1 source) Penicillins Drug Allergy 3 Unknown [facility] (1 source) Sulfur; Translations: [SULFUR] Drug Allergy 4 [facility] Repository (1 source) ALLERGIES NOT ON FILE; Translations: [ALLERGIES NOT ON FILE] Propensity to adverse reactions (disorder) [facility] 2 Repository Medications Current Medications Medication Drug Class(es) [...] tablet (18 sources) HMG-CoA Reductase Inhibitor Start: take 1 tablet by mouth once daily [...] Neuriva - as dir ected Orally Active Brewster 3 Fish Oil (10 sources) Brewster 3 Fish Oil Active ondansetron 8 mg disintegrating oral tablet (1 source) Serotonin-3 Receptor Antagonist Start: 06-08-19 23 take 1 tablet by mouth every eight hours as needed for nausea ondansetron ODT (Zofran-ODT) 8 MG disintegrating tablet Take 8 mg by mouth every 8 (eight) hours if needed for nausea. 0 06/07/2022 Active predniSONE 20 mg oral tablet (11 sources) Start: 03-05-19 24 predniSONE (Deltasone) 20 MG tablet Indications: Lumbar [...] (Reorder) Start: 10-19-2022 take 1 capsule by mo [facility] twice daily Lyrica 150 MG Oral [...] 0 Refills: 0 Ordered: 29-May-2017 DO Active Brewster 3 CAPS (7 sources) Brewster 3 CAPS Meliton ntity: 0 Refills: 0 [...] 09-26-2022 09-26-2022 Chronic Unclassified (2 sources) Z48.812 18449/82 Onset: 12-11-2017 Past or Other Problems Problem [...] Test Name Value Interpretation Reference Range Facility VASC US CAROTID ARTERY DUPLE X BILATERALon 09-25-2023 [facility] US CAROTID ARTERY DUPLEX BILATERAL [facility] [address] [place] [address] Vascular Lab Report [facility] US CAROTID ARTERY DUPLEX BILATERAL Patient Name: CAROLYNNDEYSI GIVENS Reading Physician: [id number] Eddie Marie MD Study Date: 09/25/2023 Ordering Provider: [id number] SALMA BARBOSA MRN/PID: [id number] Fellow: Technologist: Carolynn Olvera RVT, RDMS Date of /Age: 405/25/1960 / 63 years Technologist 2: Gender: F Admission Status: Outpatient Location Performed: [facility] Diagnosis/ICD: Occlusion and stenosis of bilateral carotid arteries-I65.23 Indication: Carotid Occlusion/Stenosis w/o infarct CPT Codes: 77675 Cerebrovascular Carotid Duplex scan complete Pertinent History: Carotid surgery. RIGHT CEA. CONCLUSIONS: Right Carotid: Findings are consistent with less than 50% stenosis of the right proximal internal carotid artery. Laminar flow seen by color Doppler. Right external carotid artery appears patent with no evidence of stenosis. No evidence of hemodynamically significant stenosis of the right common carotid artery. The right vertebral artery is patent with antegrade flow. No evidence of hemodynamically significant stenosis in the right subclavian artery. Left Carotid: Findings are consistent with an occlusion of the left internal carotid artery. There is a short segment of flow in the right ICA. This was seen on the previous exam. Left external carotid artery appears patent with no evidence of stenosis. No evidence of hemodynamically significant stenosis of the left common carotid artery. The left vertebral artery is patent with antegrade flow. No evidence of hemodynamically significant stenosis in the left subclavian artery. Endarterectomy: Patent right carotid endarterectomy site following endarterectomy. Additional Findings: There is a short segment of flow in the left ICA. This was seen on the previous exam. Comparison: Compared with study from 10/19/2022, no significant change. Imaging & Doppler Findings: Right Plaque Morph: No plaque identified in the right carotid artery. Left Plaque Morph: The proximal left internal carotid artery demonstrates smooth and homogenous plaque. The mid left internal carotid artery demonstrates smooth and homogenous plaque. The distal left internal carotid artery demonstrates smooth and homogenous plaque. Right Left PSV EDV PSV EDV 79 cm/s 24 cm/s CCA P 54 cm/s 11 cm/s 50 cm/s 21 cm/s CCA D 40 cm/s 8 cm/s 106 cm/s 40 cm/s ICA P 97 cm/s 33 cm/s ICA M 78 cm/s 28 cm/s ICA D 103 cm/s 19 cm/s ECA 101 cm/s 15 cm/s 57 cm/s 18 cm/s Vertebral 54 cm/s 16 cm/s Right Left PSV Waveform PSV Waveform 178 cm/s Subclavian Proximal 140 cm/s Right ICA/CCA Ratio 2.1 [id number] Eddie Marie MD Final [facility]illon 08-10-2023 Refill [id number] ToshaCarolynn 1960 F Date Provider Department Center 08/10/2023 JORDI PAVON [facility] SURG Second Fl Family History Problem Relation Age of Onset Colon cancer Mother Diabetic kidney disease Father Factor V Leiden deficiency Other Comments: siblings and grandchildren Family Status - Relation Status Age at Mother Father Other Reason for Visit and Comments: Med Change Request [411] [facility] 36on 07-19-2023 36 Discussed with clement florez that I had reviewed her imaging with Dr. Augustin. 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 She has not previously had SI joint injections. He would suggest that she try these first. She did have 3 previous epidural steroid injections. Would like a referral to a different pain management provider. Referred her to [facility] pain management. Provided phone number and advised [...] Verbalizes understanding and is in agreement. Normal [facility] Erroneous Encounteron 2023 Erroneous Encounter [id number] Elda Givens 1960 F Date Provider Department Center 07/19/2023 148-OVITT, [facility] SURG Second Fl Family History Problem Relation Age of Onset Colon cancer Mother Diabetic kidney disease Father Factor V Leiden deficiency Other Comments: siblings and grandchildren Family Status - Relation Status Age at Mother Father Other Reason for Visit and Comments: Error (VOID this visit) [77] Normal [facility] Telephoneon 07-19-2023 Telephone [id number] Elda Givens 1960 F Date Provider Department Center 07/19/2023 148-OVITT, [facility] SURG Second Fl Family History Problem Relation Age of Onset Colon cancer Mother Diabetic kidney disease Father Factor V Leiden deficiency Other Comments: siblings and grandchildren Family Status - Relation Status Age at Mother Father Other Normal [facility] Consulton 07-18-2023 Consult [id number] Elda Givens 1960 F Date Provider Department Center 07/18/2023 148-OVITT, [facility] SURG Second Fl Family History Problem Relation Age of Onset Colon cancer Mother Diabetic kidney disease Father Factor V Leiden deficiency Other Comments: siblings and grandchildren Family Status - Relation Status Age at Mother Father Other Level of Service:03545 [place] OFFICE/OUTPATIENT NEW MODERATE MDM 45 MINUTES Reason for Visit and Comments: Consult [484] - lumbosacral spondylosis without myelopathy-will bring disk Normal [facility] MR LUMBAR SPINE WO CONTRASTo n 07-12-2023 [...] lumbar spine as detailed. ELECTRONICALLY SIGNED BY: DO Emily Vazquez Not Available Office Visit (Vascular Surge )on 10-19-2022 Follow-up visit Diagnoses/Problems Assessed Stenosis of right carotid artery without infarction (433.10) (I65.21) Carotid occlusion, left (433.10) (I65.22) Patient Discussion/Summary By signing my name below, I, Ely Johnson, attest that this documentation has been prepared under the direction and in the presence of Dr. Salma Barbosa. All medical record entries made by the Mansiibe were at my direction and personally dictated [...] TabletTAKE 1 TABLET DAILY DIRECTED. Multivital TABS Brewster 3 CAPS Synthroid 125 MCG Oral TabletTAKE 1 TABLET DAILY DIRECTED. Vitals Vital Signs Recorded: 19Oct2022 10:50AM Heart Rate78 Kpbczegn211 Rkreqxzbc30 Height5 ft 4 in Whzzju642 lb BMI Ojrbsscwfc45.14 kg/m2 BSA Calculated2.07 Tobacco Useb) No Falls Screening (Age 18+)a) No falls within the last year O2 Hyxtgpkkat36 Physical Exam Constitutional - No acute distress, well appearing and well nourished. Psychiatric - Orientation to person, place, and time. Appropriate mood and affect Neurologic - Cranial nerves intact, motor strength was normal, sensation (more content not included)... Normal [facility] Tobacco Screening.on 023 Fall risk assessment a) No falls within the last year [employer] Work Phone: Tobacco use status [facility] b) No [employer] [employer] Work Phone: Blood Pressure Cuff Sizeon 0 07-28-2021 Fall risk assessment a) No falls within the last year [facility] Work Phone: Tobacco use status [facility] b) No [employer] [employer] Work Phone: Blood Pressure Cuff Size Adult [facility] Work Phone: Screening Mammogram, Bilater shaquille [...] VERY IMPORTANT TO YOUR HEALTH. THE CURRENT [employer] GUIDELINES RECOMMEND ANNUAL MAMMOGRAPHY BEGINNING AT AGE 40. THIS FACILITY UTILIZES A REMINDER SYSTEM TO ENSURE ALL PATIENTS RECEIVE A REMINDER NOTIFICATION AT THE APPROPRIATE TIME BASED ON THE RECOMMENDATIONS OF THIS EXAM. 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 ACCREDITED BY THE [facility] AND FDA. Report reported and signed by Blanche Marion on 07/24/2021 1115 Normal [facility] VASC LAB Carotid Artery Dupl ex Ultrasounon 07-14-2021 VASC LAB Carotid Artery Duplex Ultrasoun [facility] [address] [place] [address] Vascular Lab Report Carotid Artery Duplex Ultrasound Patient Name: CAROLYNN GIVENS Reading Physician: Rima Barbosa MD Study Date: 07/14/2021 Referring Physician: Rima BARBOSA MRN/PID: [id number] PCP: Accession/Order#: [id number] CC Report to: Date of : 1960 Technologist: Carolynn Olvera RDMS, T Gender: F Technologist 2: Admission Status: Outpatient Location Performed: [facility] Diagnosis/ICD: I65.22-Occlusion and stenosis of left carotid artery Procedure/CPT: 52240 Cerebrovascular Carotid Duplex scan complete-71334 Pertinent History: HTN, CAD and Carotid surgery. [...] cm/s Right Left ICA/CCA Ratio 1.5 0.9 46940 Salma Barbosa MD Final Normal [facility] XR Spine Lumbar 4+ Views*on 06-26-2021 XR [...] by Elvis Cochran on 06/26/2021 1617 Normal [facility] CAROTID DUPLEX SCAN (HL)on CAROTID DUPLEX SCAN () CAROLYNN GIVENS [id number] 1960 12/11/2017 57y [id number] NaN [id number] NaN F op Outpatient CARDIOVASCULAR LAB Referring: Tab Salazar J. Reading: Tab Salazar MD, RPVI, FACS RZ Procedure Info: 62216 - Duplex scan of extracranial arteries; complete [...] vertebral artery was patent with antegrade flow. [facility] CAROLYNN GIVENS [id number] [address] [place] [address] [id number] [birth year] Tab Salazar MD CAROTID DUPLEX SCAN [...] cm/sec Vertebral 22.8 cm/sec Tab Salazar MD, RPVI, FACS12/11/2017 14:13:45 [facility] GIVENSCAROLYNN CARLSON [id number] [address] [place], [place] [address] [id number] [birth year] Tab Salazar MD CAROTID DUPLEX SCAN Normal [facility] CAROTID DUPLEX SCAN (HL)on 05-29-2017 CAROTID DUPLEX SCAN (HL) CAROLYNN GIVENS [id number] 1960 05/29/2017 57y [id number] Sugey [id number] NaN F Outpatient CARDIOVASCULAR LAB Referring: Tab Salazar J. Reading: Tab Salazar MD, [facility], [facility] Procedure Info: 02269 - Duplex scan of extracranial arteries; complete [...] external carotid artery was patent, within normal [facility] CAROLYNN GIVENS [id number] [address] [place] [address] [id number] [birth year] Tab Salazar MD CAROTID DUPLEX SCAN [...] Vertebral 21.1 cm/sec Tab Salazar MD, RPVI, FACS05/29/2017 15:11:15 [facility] CAROLYNN GIVENS [id number] [address] [place] [place] [address] [id number] [birth year] Tab Salazar MD CAROTID DUPLEX SCAN Normal [facility] Vital Signs Date Time Vital Sign Value Performing Clinician Facility 10-19-2022 10:50-0400 Body height 162.56 cm Dory Santana Work Phone: KK-Elulnylfzf-Zufhfrb e 320 Work Phone: 10-19-2022 10:50-0400 Body mass index (BMI) [Ratio] 39.14 kg/m2 Dory Santana Work Phone: VS-Sycxydovag-Chgdgsy e 320 Work Phone: 10-19-2022 10:50-0400 Body surface area Derived from formula 2.07 m2 Dory Santana Work Phone: JF-Cfqvyyvpal-Oxogwhv e 320 Work Phone: 10-19-2022 10:50-0400 Body weight 103.42 kg Dory Santana Work Phone: MP-Hjyarpldkv-Poexbcg e 320 Work Phone: 10-19-2022 10:50-0400 Diastolic blood pressure 80 mm[Hg] Dory Santana Work Phone: GU-Krnggpovhw-Zyanjau e 320 Work Phone: 10-19-2022 10:50-0400 Heart rate 78 /min Dory Santana Work Phone: CK-Glpinmdisv-Vejgmlx e 320 Work Phone: 10-19-2022 10:50-0400 SaO2% (BldA) [Mass fraction] 96 % Dory Santana Work Phone: RA-Fnlfilvrfp-Ldtrauf e 320 Work Phone: 10-19-2022 10:50-0400 Systolic blood pressure 132 mm[Hg] Dory Santana Work Phone: JR-Slplnppjpu-Wikdqiz e 320 Work Phone: 05-14-2022 13:00-0400 Diastolic blood pressure 70 mm[Hg] Jatin Saldana Other [employer] Other 05-14-2022 13:00-0400 SaO2% (BldA) [Mass fraction] 98 % Jatin Saldana Other [employer] Other 05-14-2022 13:00-0400 Systolic blood pressure 120 mm[Hg] Jatin Shana Other [employer] Other 05-09-2022 14:30-0400 Body weight 102.06 kg Iza Blades Other [employer] Other 05-09-2022 14:30-0400 Diastolic blood pressure 100 mm[Hg] Iza Blades Other [employer] Other 05-09-2022 14:30-0400 Systolic blood pressure 140 mm[Hg] Iza Blades Other [employer] Other 04-24-2022 09:15-0500 Diastolic blood pressure 84 mm[Hg] Jatin Saldana Other [employer] Other 04-24-2022 09:15-0500 SaO2% (BldA) [Mass fraction] 98 % Jatin Saldana Other [employer] Other 04-24-2022 09:15-0500 Systolic blood pressure 130 mm[Hg] Jatin Shana Other [employer] Other 03-26-2022 12:45-0500 Diastolic blood pressure 70 mm[Hg] Jatin Shana Other [employer] Other 03-26-2022 12:45-0500 SaO2% (BldA) [Mass fraction] 99 % Jatincarlos Saldana Other [employer] Other 03-26-2022 12:45-0500 Systolic blood pressure 118 mm[Hg] Jatin Saldana Other [employer] Other 03-07-2022 16:00-0500 Body weight 102.6 kg Jatin Saldana Other [employer] Other 03-07-2022 16:00-0500 Diastolic blood pressure 84 mm[Hg] Jatin Saldana Other [employer] Other 03-07-2022 16:00-0500 SaO2% (BldA) [Mass fraction] 95 % Jatin Saldana Other [employer] Other 03-07-2022 16:00-0500 Systolic blood pressure 130 mm[Hg] Jatin Saldana Other [employer] Other 07-28-2021 11:14-0400 Body height 162.56 cm Dory Santana Work Phone: UK-Qwifolvnsz-Sonuwqq e 320 Work Phone: 07-28-2021 11:14-0400 Body mass index (BMI) [Ratio] 35.02 kg/m2 Dory Santana Work Phone: BF-Ygxejpzwtx-Qwoblpy e 320 Work Phone: 07-28-2021 11:14-0400 Body surface area Derived from formula 1.97 m2 Dory Santana Work Phone: NT-Upsgfsrsaz-Rdlqjor e 320 Work Phone: 07-28-2021 11:14-0400 Body weight 92.53 kg Dory Santana Work Phone: RK-Epeaoydwfw-Tdtcjfl e 320 Work Phone: 07-28-2021 11:14-0400 Diastolic blood pressure 74 mm[Hg] Dory Santana Work Phone: KU-Bupdsybdpk-Eukhtdq e 320 Work Phone: 07-28-2021 11:14-0400 Heart rate 82 /min Dory Santana Work Phone: GW-Ycoxdiiqzr-Ocuhokf e 320 Work Phone: 07-28-2021 11:14-0400 SaO2% (BldA) [Mass fraction] 95 % Dory Santana Work Phone: ZW-Wxywsecibl-Hsuwqfz e 320 Work Phone: 07-28-2021 11:14-0400 Systolic blood pressure 150 mm[Hg] Dory Santana Work Phone: HA-Gdazhxngpk-Uhasvcp e 320 Work Phone: 06-22-2020 13:49-0400 Body height 160.02 cm Dory Santana Work Phone: [facility] Work Phone: 06-22-2020 13:49-0400 Body mass index (BMI) [Ratio] 38.62 kg/m2 Dory Santana Work Phone: [employer] [facility] Work Phone: 06-22-2020 13:49-0400 Body surface area Derived from formula 2.01 m2 Dory Santana Work Phone: [facility] Work Phone: 06-22-2020 13:49-0400 Body weight 98.88 kg Dory Santana Work Phone: [facility] Work Phone: 06-22-2020 13:49-0400 Diastolic blood pressure 82 mm[Hg] Dory Santnaa Work Phone: [facility] Work Phone: 06-22-2020 13:49-0400 Heart rate 65 /min Dory Santana Work Phone: [facility] Work Phone: 06-22-2020 13:49-0400 SaO2% (BldA) [Mass fraction] 98 % Dory Santana Work Phone: [facility] Work Phone: 06-22-2020 13:49-0400 Systolic blood pressure 132 mm[Hg] Dory Santana Work Phone: [facility] Work Phone: Encounters Encounter Date Encounter Type Care Provider Facility Start: 10-24-2023 End: 10-24-2023 ambulatory MONTANA KNAPP Not Available Start: 10-23-2023 End: 10-23-2023 ambulatory BROOKS ORTEGA Not Available Start: 10-22-2023 End: 10-22-2023 ambulatory TRACEY RICCI Not Available Start: 09-25-2023 End: 09-25-2023 ambulatory SALMA R [facility] Start: 07-23-2023 End: 07-23-2023 ambulatory BROOKS ORTEGA Not Available Start: 07-18-2023 End: 07-18-2023 ambulatory [facility] Start: 07-18-2023 End: 07-18-2023 ambulatory [facility] Start: 07-12-2023 End: 07-12-2023 ambulatory CONG MEEKS Not Available Start: 05-15-2023 End: 05-15-2023 ambulatory CONG MEEKS Not Available Start: 05-06-2023 End: 05-06-2023 ambulatory NATALEE PACHECO Not Available Start: 05-01-2023 End: 05-01-2023 ambulatory MAYA PENN Not Available Start: 04-17-2023 End: 04-17-2023 ambulatory NATALEE A PETITTI Not Available Start: 03-31-2023 Refill Cong Carlos Work Phone: [facility] 230 Comment on above: Neuralgia and neurit is, unspecified Start: 03-05-2023 End: 03-05-2023 ambulatory NATALEE A PETITTI Not Available Start: 01-30-2023 End: 01-30-2023 ambulatory NATALEE A PETITTI Not Available Start: 10-19-2022 Office outpatient visit 15 minutes Dory Harjinder Santoschristie Work Phone: [facility] 202 Work Phone: Start: 10-19-2022 Patient encounter procedure Dory Harjinder Santoschristie Work Phone: XL-Evesqwnzuq-Awuyqnfn 320 Work Phone: Start: 10-19-2022 ambulatory Salma Barbosa MD Faci lity:[id number] Start: 05-22-2022 End: 05-22-2022 ambulatory Iza King Other [employer] Other Start: 05-22-2022 Telephone encounter Iza King F [facility] Neurosurgery Start: 05-17-2022 End: 05-17-2022 ambulatory Jatin Saldana Other [employer] Other Start: 05-17-2022 Telephone encounter Jatin Saldana [facility] Start: 05-14-2022 End: 05-14-2022 ambulatory Jatin Saldana Other [employer] Other Start: 05-14-2022 Office outpatient visit 25 minutes Jatin Saldana [facility] Start: 05-09-2022 End: 05-09-2022 ambulatory Iza King Other [employer] Other Start: 05-09-2022 Office outpatient ne w 45 minutes Iza King [facility] Neurosurgery Start: 05-01-2022 (PROC) PROCEDURE Jatin Alcantar [facility] Start: 05-01-2022 End: 05-01-2022 ambulatory Jatin Saldana Other [employer] [facility] [employer] Other Start: 04-24-2022 End: 04-24-2022 ambulatory Jatin Saldana Other [employer] [facility] [employer] Other Start: 04-24-2022 Office outpatient visit 25 minutes Jatin Saldana [facility] Start: 04-03-2022 (PROC) PROCEDURE Jatin Alcantar [facility] Start: 04-03-2022 End: 04-03-2022 ambulatory Jatin Saldana Other [employer] Other Start: 03-26-2022 End: 03-26-2022 ambulatory Jatin Saldana Other [employer] Other Start: 03-26-2022 Office outpatient visit 25 minutes Jatin Saldana [facility] Start: 03-13-2022 (PROC) PROCEDURE Jatin Alcantar [facility] Start: 03-13-2022 End: 03-13-2022 ambulatory Jatin Saldana Other [employer] Other Start: 03-07-2022 End: 03-07-2022 ambulatory Jatin Saldana Other [employer] Other Start: 03-07-2022 [facility] visit new patient Jatin Saldana [facility] Start: 07-28-2021 Office outpatient visit 15 minutes [facility]ory Santana [facility] Work Phone: Start: 07-28-2021 Patient encounter procedure Dory Santana Work Phone: KQ-Hxevkhyuzq-Pjerbhbn 320 Work Phone: Start: 02-01-2021 Chart Update Dory Santana Work Phone: [facility] Work Phone: Start: 07-19-2020 Rx Renewal Dory Santana Work Phone: [facility] Work Phone: Start: 05-21-2018 Patient encounter procedure Tab Salazar Facility:[facility] Start: 12-11-2017 Patient encounter procedure Tab Salazar Facility:[facility] Start: 05-29-2017 Patient encounter procedure Tab Salazar Facility:[facility] Patient encounter status Dory Santana Work Phone: [facility] Work Phone: Procedures Date Procedure Procedure Detail Performing Clinician Start: 09-17-2022 Mammography Cong LAU Work Phone: Carotid Thromboendarterectomy Dory Santana Work Phone: section Dory soriano Work Phone: Neuroplasty and hilliard sposition of median nerve at carpal tunnel Dory Santana Work Phone: Thyroid Surgery Jw-Thyroidectomy Dory Santana Work Phone: Plan of Treatment Date Care Activity Detail Author Start: 09-13-2024 Screening for malign ant neoplasm of colon [facility] Start: 02-03-2024 End: 02-03-2024 Patient encounter procedure 02/03/2024 8:30 AM EST Office Visit [facility] [address] [place] [id number] Natalee Pacheco MD [address] [place] [address] [facility] Start: 09-18-2023 Screening for malign ant neoplasm of breast Mammogram [facility] Start: 04-19-2023 Hemoglobin A1c measurement Diabetes: Hemoglobin A1C [facility] Start: 04-17-2023 End: 04-17-2023 Patient encounter procedure 04/17/2023 8:30 AM EST Office Visit [facility] [address] [place] [address] Natalee Pacheco MD [address] [place] [address] [facility] Start: 12-29-2022 Glaucoma screening Diabetes: R etinopathy Screening [facility] Start: 09-07-2022 FUV, Provider: Salma Barbosa, Status: Pen, Time: 11:45 AM FUV, Provider: Salma Barbosa, Status: Pen, Time: 11:45 AM [facility] Work Phone: Start: 09-07-2022 CAROTID, Provider: [facility], Status: Pen, Time: 10:00 AM CAROTID, Provider: [facility], Status: Pen, Time: 10:00 AM [facility] Work Phone: Start: 08-31-2022 Urine screening for protein Diabetes: Urine Protein Screening [facility] Start: 08-03-2022 FUV, Provider: Salma Barbosa, Status: Pen, Time: 10:00 AM FUV, Provider: Salma Barbosa, Status: Pen, Time: 10:00 AM [facility] Work Phone: Start: 08-03-2022 CAROTID, Provider: [facility], Status: Pen, Time: 9:00 AM CAROTID, Provider: [facility], Status: Pen, Time: 9:00 AM [facility] Work Phone: Start: 06-21-2021 FUV, Provider: Tab Salazar, Status: Pen, Time: 2:00 PM FUV, Provider: Tab Salazar, Status: Pen, Time: 2:00 PM [facility] Work Phone: Start: 06-21-2021 CAROTID, Provider: [facility], Status: Pen, Time: 1:00 PM CAROTID, Provider: [facility], Status: Pen, Time: 1:00 PM [facility] Work Phone: Start: 1990 Screening for malign ant neoplasm of cervix [facility] Start: 1981 Screening for malign ant neoplasm of cervix Pap Smear [facility] Start: 1960 Screening for malign ant neoplasm of colon [facility] Immunizations Immunization Date Immunization Notes Care Provider Corina sauer 11-29-2022 Influenza, injectabl e, Madin Brookings Canine Kidney, preservative free, quadrivalent Cong Meeks PA Work Phone: [facility] 11-30-2021 Influenza, injectabl e, Madin Katie Canine Kidney, preservative free, quadrivalent Cong Meeks PA Work Phone: [facility] 11-21-2020 Influenza, injectabl e, Madin Katie Canine Kidney, preservative free, quadrivalent Cong Meeks PA Work Phone: [facility] 12-27-2019 zoster vaccine recombinant Cong Meeks PA Work Phone: [facility] 11-02-2019 Influenza, injectabl e, Madin Brookings Canine Kidney, preservative free, quadrivalent Cong Meeks PA Work Phone: [facility] 10-24-2019 zoster vaccine recombinant Cong Meeks PA Work Phone: [facility] 10-23-2019 zoster vaccine recombinant Cong Meeks PA Work Phone: [facility] 11-26-2018 Influenza, injectabl e, Madin Brookings Canine Kidney, quadrivalent with preservative Cong Meeks PA Work Phone: [facility] 11-26-2018 influenza, injectabl e, madin katie canine kidney, preservative free Cong Meeks PA Work Phone: [facility] 12-04-2017 influenza, injectabl e, madin katie canine kidney, preservative free Cong Meeks PA Work Phone: [facility] 12-13-2016 seasonal influenza, intradermal, preservative free Cong Meeks PA Work Phone: [facility] 12-27-2015 influenza, injectabl e, quadrivalent, preservative free Cong Meeks PA Work Phone: [facility] 12-27-2015 seasonal influenza, intradermal, preservative free Cong Meeks PA Work Phone: [facility] 12-26-2015 seasonal influenza, intradermal, preservative free Cong Meeks PA Work Phone: [facility] Payers Date Payer Category Payer Unknown 2022 [facility] [id number] 2014 Unknown [id number] 1960 Unknown [id number] 2.16. [id number] 1960 Unknown [id number] 2.16.8 40.1.593368.3.579.2.1243 1960 Unknown [id number] 2.16.84 0.1.176338.3.579.2.1259 1960 Unknown [id number] 2.16.84 0.1.024576.3.579.2.1259 1960 Unknown [id number] 2.16.84 0.1.616382.3.579.2.1259 1960 Unknown [id number] 2.16.84 0.1.080397.3.579.2.1259 1960 Unknown [id number] 2.16.84 0.1.636536.3.579.2.1259 1960 Unknown [id number] 2.16.84 0.1.625196.3.579.2.1259 1960 Unknown [id number] 2.16.84 0.1.255794.3.579.2.1259 1960 Unknown [id number] 2.16.84 0.1.275561.3.579.2.1258 1960 Unknown [id number] 2.16.84 0.1.366313.3.579.2.9 1960 Unknown [id number] 2.16.84 0.1.660487.3.579.2.1258 1960 Unknown [id number] 2.16.84 0.1.094050.3.579.2.1258 1960 Unknown [id number] 2.16.84 0.1.374509.3.579.2.1258 1960 Unknown [id number] 2.16.84 0.1.424785.3.579.2.1258 1960 Unknown [id number] 2.16.84 0.1.502914.3.579.2.1258 1960 Unknown [id number] 2.16.840 .1.347838.3.579.2.1259 Unknown [id number] 2.16.8 40.1.515954.3.579.2.243 Unknown [id number] 2.16.8 40.1.143495.3.579.2.243 Unknown [id number] 2.16.8 40.1.357647.3.579.2.243 Social History Date Type Detail Facility Start: 09-26-2022 End: 03-05-2023 [facility] Work Phone: Start: 09-26-2022 End: 03-05-2023 Sex Assigned At [facility] Other Start: 09-26-2022 Tobacco smoking status NHIS Never smoked tobacco [facility] Start: 09-26-2022 Tobacco use and exposure Smokeless tobacco non-user [facility] Start: 03-05-2023 Alcohol intake Current drinker of alcohol (finding) [facility] Within the last year , have you been afraid of your partner or ex-partner? No [facility] How often do you att end sikh or adventist services? Patient refused [facility] Are you now , , , , never or living with a partner? [facility] How often to you hav e a drink containing alcohol? 2-4 times a month [facility] How many standard drinks containing alcohol do you have on a typical day? 1 or 2 [facility] How often do you hav e 6 or more drinks on 1 occasion? Never [facility] Do you feel stress - tense, restless, nervous, or anxious, or unable to sleep at night because your mind is troubled all the time - these days [OSQ] To some extent [facility] (I/We) worried wheth er (my/our) food would run out before (I/we) got money to buy more. Never true [facility] Start: 1960 Sex Assigned At Female [facility] Start: 09-11-2022 Gender identity Identifies as female gender (finding) [facility] Start: 09-11-2022 Sexual orientation Heterosexual (finding) [facility] Clinical Notes 07-28-2020 to 07-18-2023 Note [...] do physical therapy 1 year ago at [facility] without lasting or substantial improvement. Did see pain management provider, Dr. Colbert, at [facility] and had 3 epidural steroid injections, most recently about 18 months ago, without lasting or substantial improvement. Has not had previous back surgery. Has tried medications, including gabapentin, and Lyrica without substantial improvement. States takes Tylenol with minimal improvement. 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 Used to enjoy boating and Jet Skiing, [...] acyclovir ALPRAZolam aspirin atorvastatin bisoproloL-hydrochlorothiazide clopidogrel hydroCHLOROthiazide MULTIVIT,[id number] ORAL NEURIVA PLUS BRAIN PERFORMANCE ORAL omega-3 [...] mouth 2 times daily., Disp: , Rfl: MULTIVIT,[id number] ORAL, Take by mouth., Disp: , Rfl: [...] regular and nonlabored. (more content not included)... [facility] 05-14-2022 Evaluation note Encounter Date Diagnosis Assessment Notes Apr, Sacroiliitis (ICD-10 - M46.1) Continue to wear insoles as provided by side seam tender. If pain persists, we can consider proceeding [...] Aspirin for 5 days prior to procedure. [facility] Other 03-22-2023 Evaluation note* Encounter Date Diagnosis Assessment Notes Treatment Notes Treatment Clinical Notes Apr, Sciatica, right side (ICD-10 - M54.31) Apr, Sciatica, left side (ICD-10 - M54.32) [facility] Other 03-20-2023 Reason for referral (narrative)* Reason 05/09/22 @ 1:30 gurrola rgical consultation for lumbar radiculopathy of L4-5, not improving with epidural injections Diagnosis 1 Lumbar radiculopathy (M54.16) Referral Organization [facility] Referring Provider First Name Jatin Referring Provider Last Name Shana Referring Provider Specialty Pain Medici ne Referred Organization [facility] Referred Provider Iza King Referred Address [address],[address] Referred Provider Specialty Neurological Surgery Referral Priority Routine Referral Appointment Date 2022-05-09 General Notes Denise Kwan 04:47:59 PM >received today, note locked, sent P2P Jayde Lawrence 05/01/2022 11:37:06 AM >pt is scheduled 05/09/22 [facility] Other 03-07-2023 Evaluation note* Encounter Date Diagnosis [...] Aspirin for 5 days prior to procedure. [facility] Other 02-06-2023 Evaluation note* Encounter Date Diagnosis [...] Aspirin for 5 days prior to procedure. [facility] Other 01-18-2023 Evaluation note* Encounter Date Diagnosis [...] her Aspirin 5-7 days prior to procedure. Feb, Other Medical deci pal making shows a [...] negative findings were considered in medical decision-making. [facility] Other 06-17-2022 History of Present illness [id number] female presenting for carotid followup. She was last seen by Dr. Salazar last year. Duplex reveals less than 50% stenosis on the right with unchanged velocity. She has a h/o left carotid occlusion. She is taking aspirin, plavix and atorvastatin.[facility] Work Phone: 1(534) 380-736706-11-2021 History of Present illness [id number] female presenting for carotid followup. She was last seen by Dr. aSlazar last year. Duplex reveals less than 50% stenosis on the right with unchanged velocity. She has a h/o left carotid occlusion. She is taking aspirin, plavix and atorvastatin.[facility] Work Phone: 1(748) 704-149706-10-2021 History of Present illness [id number] female presenting for carotid followup. She was last seen by Dr. Salazar last year. Duplex reveals less than 50% stenosis on the right with unchanged velocity. She has a h/o left carotid occlusion. She is taking aspirin, plavix and atorvastatin.[employer] Work Phone: Evaluation noteNo InformationNort frestyl Other Evaluation note* Diagnosis Neuralgia and neuritis, unspecified documented in this encounter [facility] N[facility] - Reported* Type Description Date Medical History diabetes mallitus Medical History herpes Medical History high blood pressure Medical History obesity Medical History stroke Surgical History carotid endarterectomy Surgical History carpal tunnel release Surgical History thyroidectomy Hospitalization History see above surg. hx. [facility] Other History of Present illness [id number] female presenting for carotid followup. She denies lateralizing symptoms. She has a known leftcarotid occlusion. She continues to take aspirin, plavix and atorvastatin.[facility] Work Phone: History of Present illness [id number] female presenting for carotid follow up. She denies lateralizing symptoms. She has a known left carotid occlusion and h/o right CEA. She continues to take aspirin, plavix and atorvastatin.[facility] Work Phone: Summary Purpose Family History [...] section and content) DATE CREATED AUTHOR 05/19/2018 [facility] DATE CREATED AUTHOR AUTHOR'S ORGANIZ ATION 07/15/2021 [facility] DATE CREATED AUTHOR AUTHOR'S ORGANIZ ATION 07/24/2021 [facility] dical Specialist DATE CREATED AUTHOR AUTHOR'S ORGANIZ ATION 10/20/2022 [facility] [place] DATE CREATED AUTHOR AUTHOR'S ORGANIZ ATION 10/21/2022 [employer] DATE CREATED AUTHOR AUTHOR'S ORGANIZ ATION 08/12/2023 [facility] DATE CREATED AUTHOR AUTHOR'S ORGANIZ ATION 09/30/2023 [facility] DATE CREATED AUTHOR AUTHOR'S ORGANIZ ATION 10/28/2023 [facility] dical Specialists EPIC REASON FOR VISIT (unrecogniz ed section and content) Reason Onset Date Comments Med Refill 03/31/2023 Care Teams (unrecognized sec tion and content) Cargo Mate Relationship Specialty Start Date End Date Edgar Stockton DO [address] [place] [address] PCP - General Family Medicine 11/29/22 Cong Meeks PA [address] [facility] [address] [place] [address] Physician Motor Route Carrier Family Medicine 08/10/22 FOR RECORDS PERTAINING TO [...] BE BASED ON THE PRIMARY CLINICAL RECORDS. [facility]. provides no warranty or guarantee of the accuracy or completeness of information in this document.
== END 2023-11-05 12:19 | disposition home or self-care (01) ==
LOC: PM 12:19
PROVIDERS: Visit Provider Anesthesiology Pain Medicine
DX: M47.816 Spondylosis without myelopathy or radiculopathy, lumbar region (principal); M62.838 Other muscle spasm
CPT/HCPCS: G0463

== ENCOUNTER 2024-04-21 09:47 | Outpatient (OUT) | payer BC, SELFPAY ==
--- NOTE | 2024-04-21 | CONS_ITS ---
CONSULTATION DATE: 04/21/2024 TO: Bob Calixto D.O. CHIEF COMPLAINT: Includes bilateral lower back pain, worse on the right than left side. HISTORY: She reports the pain is rated approximately 9/10, sharp in nature, which increased with activities such as standing, walking and performing transitioning maneuvers. She denies any change in bowel and bladder habits, or new sensorimotor changes in her lower extremities. She reports this flare up started approximately six weeks ago, increased to the point where it has altered her quality of life, level of functioning and sleep pattern. She continues to use Lyrica and Alprazolam, as well as acetaminophen for pain control. She is unable to tolerate nonsteroidal agents secondary to the patient being on anti- coagulant therapy. She has also been undergoing physical therapy. Despite this, she reports her pain has progressed to the point where it has markedly diminished her level of functioning. Her MAEGAN on today?s visit is 30%. EXAMINATION: Notable for patient having no clinical signs consistent with radiculopathy or myelopathy involving the lower extremities. Patient did have severe pain with lumbar facet joint loading maneuvers occurring bilaterally from L4 through S1, markedly worse on the right side compared to the left side, with associated myofascial spasm of the lumbar paravertebral muscles, involving the erector spinae, worse on the right than the left side as well. IMPRESSION: Our impression is patient appears to have chronic pain secondary to known lumbar spondylosis with facet loading pain clinically, occurring bilaterally, worse on the right than the left side at L4-5, L5-S1 with associated myofascial spasm and myalgia of the erector spinae muscles. RECOMMENDATIONS: I recommend she restart baclofen 10 mg pills, one t.i.d as tolerated. To proceed with a bilateral therapeutic L4-5, L5-S1 facet joint injection under fluoroscopic guidance. As part of providing excellent, safe, comprehensive care, the following was completed at our patient's visit: 1. A medication reconciliation and review to ensure accurate knowledge of current/active medications, including asking our patients to inform us about any [id number] medications or herbal remedies/nutritional supplements/alternative remedies. 2. A review to specifically ensure our patients have had annual screening for: elevated body mass index (BMI, see intake chart for exact total), tobacco use, screening for depression, and screening for unhealthy alcohol use. When screening is concerning, patients are provided with education and the specific recommendation to discuss the concerning health issue and treatment options with their primary care provider. GENEVIEVE
--- OUTSIDE RECORDS SUMMARY | 2024-04-21 09:55 | XMS_ITS | CCD ---
Author Organization [facility] Care Team Providers Care [employer] Network Architect Name Role Phone Rizwana Salazar Attending Unavailabl e Miscellaneous, SJ Primary Care Unavailable Miscellaneous, SJ Consulting Unavailable Rizwana Salazar Attending Unavailabl e Miscellaneous, SJ Primary Care Unavailable Miscellaneous, SJ Consulting Unavailable Rizwana Salazar Attending Unavailabl e Miscellaneous, SJ Primary Care Unavailable Miscellaneous, SJ Consulting Unavailable Dory Wells Unavailable Unavailable Unavailable Jatin Saldana Unavailable Iza King Unavailable Jack Barbosa MD Attending Unavailable Dr. Dory Wells Referring Unavailable Cong Griffin Unavailable Edgar Stockton DO Primary Care Provider OVITT, JORDI Referring Unavailable OVITT, JORDI Referring Unavailable OVITT, JORDI Referring Unavailable JORDI ROMERO Attending Unavailable JACK BARBOSA Referring Unavailable DORY WELLS Primary Care Unavailable RIZWANA SALAZAR Attending Unavail able Cong Rosen PA-C Unavailable [phone] Brooks Calixto DO Primary Care Provider Brooks Calixto DO Primary Care Provider Jorge L Hatch MD Unavailable DO Brooks Calixto Primary Care Provider [phone] DO Brooks Calixto Attending Provider [phone] JORGE L HATCH Admitting UnavailJORGE L Dimas Attending UnavailBROOKS Grullon Primary Care Unavailable PACHECO VILLELA Referring Unavailable CUTLER, BROKOS L Primary Care Unavailable HOLDEN, JORGE L BHATTI Referring Unavailabl e CUTLER, BROOKS L Primary Care Unavailable Cuhy BALES, Sonia Unavailable Unavailable Esperance, Brooks L Attending Unavailable Esperance, Brooks L Primary Care Unavailable Esperance, Brooks L Admitting Unavailable GUNDLACH, JIMBO Phoenix Attending Unavailable HOLDEN, JORGE L Referring Unavailable PETITTI, MISA Carlos Attending Unavailable PENN, MAYA Larson Attending Unavailable PETITTI, MISA Carlos Attending Unavailable ROSEN, CONG Brumfield Attending Unavailable KAFTAN, EDGAR Rogers Referring Unavailable ROSEN, CONG Brumfield Referring Unavailable CUTLER, BROOKS L Attending Unavailable CUTLER, BROOKS L Attending Unavailable CUTLER, BROOKS L Referring Unavailable KEIRY, TRACEY Carlos Attending Unavailable KEIRY, TRACEY Carlos Referring Unavailable CUTLER, BROOKS L Attending Unavailable CUTLER, BROOKS L Referring Unavailable POCOS, MON[place] Carlos Attending Unavailable POCOS, [place] Carlos Referring Unavailable CUTLER, BROOKS L Attending Unavailable CUTLER, BROOKS L Referring Unavailable CUTLER, BROOKS L Referring Unavailable GUNDLACH, JIMBO Phoenix Attending Unavailable HOLDEN, JORGE L Referring Unavailable GUNDLACH, JIMBO Phoenix Attending Unavailable HOLDEN, JORGE L Referring Unavailable GUNDLACH, JIMBO Phoenix Attending Unavailable GUNDLACH, JIMBO Phoenix Attending Unavailable HOLDEN, JORGE L Referring Unavailable GUNDLACH, JIMBO Phoenix Attending Unavailable HOLDEN, JORGE L Referring Unavailable GUNDLACH, JIMBO Phoenix Attending Unavailable HOLDEN, JORGE L Referring Unavailable GUNDLACH, JIMBO Phoenix Attending Unavailable HOLDEN, JORGE L Referring Unavailable PETITTI, MISA Carlos Attending Unavailable GUNDLACH, JIMBO Phoenix Attending Unavailable HOLDEN, JORGE L Referring Unavailable GUNDLACH, JIMBO Phoenix Attending Unavailable HOLDEN, JORGE L Referring Unavailable GUNDLACH, JIMBO Phoenix Attending Unavailable HOLDEN, JORG EL Referring Unavailable DEPOYAJZZY Attending Unavailable HOLDEN, JORGE L Referring Unavailable GUNDLACH, JIMBO Phoenix Attending Unavailable HOLDEN, JORGE L Referring Unavailable GUNDLACH, JIMBO Phoenix Attending Unavailable HOLDEN, JORGE L Referring Unavailable GUNDLACH, JIMBO Phoenix Attending Unavailable HOLDEN, JORGE L Referring Unavailable GUNDLACH, JIMBO Phoenix Attending Unavailable HOLDEN, JORGE L Referring Unavailable GUNDLACH, JIMBO Phoenix Attending Unavailable HOLDEN, JORGE L Referring Unavailable GUNDLACH, JIMBO Phoenix Attending Unavailable HOLDEN, JORGE L Referring Unavailable Allergies Allergy Classification Reported Allergen(s) Allergy Type Date of Onset Reaction(s) Facility Macrolides (antibiotic) (1 source) Clarithromycin; Translations: [Clarithromycin TABS] Drug Allergy [facility] Work Phone: Penicillins (antibiotic) (1 source) Penicillins; Translations: [Penicillins] [facility]: Sulfonamides (antibiotic) (1 source) Sulfonamides (Antibiotic); Translations: [Sulfa Drugs] Drug [facility] Work Phone: Unclassified (7 sources) Contrast Media Ready-Box MISC; Translations: [Contrast Media Ready-Box MISC] [facility] drug (finding) [facility]: (6 sources) Clarithromycin; Translations: [Clarithromycin TABS] [facility] Work [facility]: (9 sources) Penicillins; Translations: [Penicillins] Allergy to drug (finding) 05-15-19 [facility] Repository (6 sources) Sulfonamides (Antibiotic); Translations: [Sulfa Drugs] Allergy to drug (finding) [facility] Work Phone: (5 sources) Penicillin Drug Allergy Unknown [employer] Other (20 sources) Substance with sulfonamide structure and antibacterial mechanism of action (substance) Drug allergy 08-11-19 Unknown, Hives [facility] Other (20 sources) Penicillins Drug Allergy 08-11-19 Unknown [facility] (1 source) Sulfur; Translations: [SULFUR] Drug Allergy 07-18-19 [facility] Repository (1 source) ALLERGIES NOT ON FILE; Translations: [ALLERGIES NOT ON FILE] Propensity to adverse reactions (disorder) [facility] Repository (2 sources) Penicillins Drug Allergy 11-18-19 Anaphylaxis [facility] (3 sources) Sulfonamides (Antibiotic); Translations: [SULFA (SULFONAMIDE ANTIBIOTICS)] Allergy to substance 05-15-19 [facility] (1 source) Penicillins Drug allergy (disorder) 05-15-19 [facility] Repository Medications Current Medications Medication Drug Class(es) Dates Sig (Normalized) Sig (Original) Acetaminophen (1 source) acetaminophen (TYLENOL ARTHRITIS ORAL) Take by mouth. Active acyclovir 400 mg oral tablet (20 sources) Herpesvirus Nucleoside Analog DNA Polymerase Inhibitor, Herpes Simplex Virus Nucleoside Analog DNA Polymerase Inhibitor, Herpes Zoster Virus Nucleoside Analog DNA Polymerase Inhibitor Start: 12-30-2023 take 1 tablet by mouth once daily acyclovir (Zovirax) 400 MG tablet Indications: Herpes Take 1 tablet (400 mg) by mouth Daily 90 tablet 1 12/30/2023 Active Start: 03-01-2015 take 1 tablet by kirstin th once daily acyclovir (Zovirax) 400 MG tablet Indications: Herpes TAKE 1 TABLET BY MOUTH EVERY DAY 90 tablet 1 10/28/2023 Active Zovirax Active Acyclovir Active aspirin 81 mg chewable tablet (20 sources) Platelet Aggregation Inhibitor, Nonsteroidal Anti-inflammatory Drug aspirin 81 MG chewab le tablet Chew 81 mg 1 (one) time. Active End: 12-11-2023 take 1 tablet by mouth once daily aspirin, enteric coated (ASPIRIN, ENTERIC COATED) 325 mg EC tablet Take 325 mg by mouth once daily. 12/11/2023 Discontinued (Discontinued by Patient) take 1 tablet by kirstin th once daily aspirin, enteric coated (ASPIRIN, ENTERIC COATED) 81 mg EC tablet Take 81 mg by mouth once daily. Active atorvastatin 80 mg oral tablet (20 sources) HMG-CoA Reductase Inhibitor Start: 02-28-2023 End: 02-25-2024 take 1 tablet by mouth at bedtime atorvastatin (Lipitor) 80 MG tablet Indications: Mixed hyperlipidemia (CMS/HCC) Take 1 tablet (80 mg) by mouth at bedtime 90 tablet 3 02/25/2024 Active Atorvastatin Mitchell cium Active baclofen 10 mg oral tablet (20 sources) gamma-Aminobutyric Acid-ergic Agonist Start: 10-01-2023 End: 02-25-2024 take 1 tablet by mouth in the morning, then take 1 tablet by mouth in the evening, then take 1 tablet by mouth at bedtime baclofen (Lioresal) 10 MG tablet Indications: Chronic pain syndrome Take 1 tablet (10 mg) by mouth in the morning and 1 tablet (10 mg) in the evening and 1 tablet (10 mg) before bedtime. 270 tablet 3 02/25/2024 Active Evelio Low Dose (10 sources) Evelio Low Dose Active bisoprolol fumarate 2.5 mg / hydroCHLOROthiazide 6.25 mg oral tablet (20 sources) Thiazide Diuretic, beta-Adrenergic Nabeel Start: 10-09-2023 take 1 tablet by mouth once daily bisoprolol-hydr oCHLOROthiazide (Ziac) 2.5-6.25 MG tablet Indications: Benign hypertension (CMS/HCC) TAKE 1 TABLET BY MOUTH EVERY DAY 90 tablet 1 10/09/2023 Active Start: 01-22-2023 take 1 tablet by kirstin th once daily bisoprolol-hydroCHLOROthiazide (Ziac) 2.5-6.25 MG tablet Indications: Benign hypertension (CMS/HCC) TAKE 1 TABLET BY MOUTH EVERY DAY 90 tablet 1 01/22/2023 Active Start: 01-05-2014 take 1 tablet by kirstin th once daily Bisoprolol-hydroCHLOROthiazide 2.5-6.25 MG Oral Tablet TAKE 1 TABLET DAILY DIRECTED. Quantity: 0 Refills: 0 Ordered: 05-Feb-2014 DO Start : 05-Jan-2014 Active take 1 tablet by kirstin th once daily bisoprolol-hydrochlorothiazide (ZIAC) 5- 6.25 mg per tablet Take 1 tablet by mouth once daily. Active Bisoprolol-hydro CHLOROthiazide Active 24 hr buPROPion [...] or throat if needed. 0 12/21/2021 Active cholecalciferol, vitamin D3, (VITAMIN D3 ORAL) (1 source) cholecalciferol, vitamin D3, (VITAMIN D3 ORAL) Take 125 mcg by mouth. Active cinnamon bark 500 mg oral capsule (20 sources) take 1 capsule by mouth in the morning cinnamon 500 MG capsule Take 500 mg by mouth in the morning. Active clopidogrel 75 mg oral tablet (20 sources) P2Y12 Platelet Inhibitor Start: 11-28-2016 take 1 tablet by mouth once daily clopidogrel (Plavix) 75 MG tablet Indications: Occlusion and stenosis of left carotid artery TAKE 1 TABLET BY MOUTH EVERY DAY 90 tablet 3 07/29/2023 Active Coenzyme Q10 (10 sources) Coenzyme Q10 Act jael cyclobenzaprine hydrochloride 10 mg oral tablet (1 source) Muscle Relaxant Start: 11-01-2022 take 1 tablet by mouth once daily at bedtime as needed cyclobenzaprine (Flexeril) 10 MG tablet Indications: Sacrococcygeal disorders, not elsewhere classified TAKE 1 TABLET BY MOUTH EVERY DAY AT BEDTIME NEEDED 40 tablet 0 11/01/2022 Active diclofenac sodium 0.01 mg/mg topical gel (20 sources) Nonsteroidal Anti-inflammatory Drug Start: 11-13-2023 diclofenac sodium 1 % gel Indications: Bilateral primary osteoarthritis of knee Apply 4 g topically in the morning and 4 g in the evening and 4 g before bedtime. 350 g 11 11/13/2023 Active docosahexaenoic acid 120 mg / eicosapentaenoic acid 180 mg oral capsule (20 sources) take 1 capsule by mouth once daily omega-3, EPA + DHA, (fish oil) 1000 MG capsule Take 1 capsule by mouth 1 (one) time each day at the same time. Active DULoxetine 30 mg delayed release oral capsule (20 sources) Serotonin and Norepinephrine Reuptake Inhibitor Start: 07-19-2023 End: 11-13-2023 take 1 capsule by mouth once daily DULoxetine (Cymbalta) [address] capsule Indications: Chronic pain syndrome Take 1 capsule (30 mg) by mouth Daily Do not crush or chew. 90 capsule 3 11/13/2023 Active Elderberry preparation (20 sources) take 1 capsule by mouth in the morning Elderberry 500 MG capsule Take 1 capsule by mouth in the morning. Active take 1 capsule by mouth in the m orning Elderberry 500 MG capsule Take 1 capsule by mouth in the morning. 0 Active Elderberry 500 M G as directed Orally Active furosemide 40 mg oral tablet (20 sources) Loop Diuretic Start: 08-29-2023 take 1 tablet by mouth once daily as needed for edema furosemide (Lasix) 40 MG tablet Indications: Impaired fasting glucose , Systolic murmur , Edema of extremities TAKE 1 TABLET BY MOUTH DAILY NEEDED (LOWER EXTREMITY EDEMA) 90 tablet 1 08/29/2023 Active gabapentin 300 mg oral capsule (10 sources) Anti-epileptic Agent take 1 capsule by mouth twice daily Gabapentin 300 MG 1 capsule Orally twice daily for 30 days G89.29 Chronic pain Active take 1 capsule by mo [facility] three times daily Gabapentin 100 MG 1 capsule Orally three times daily Active glucosamine sulfate 500 mg oral tablet (1 source) take 1 tablet by mouth twice daily Glucosamine Sulfate (GLUCOSAMINE) 500 mg tab Take 1 tablet by mouth two times a day. 1500 mg chondroitin sulfate 1200mg sodium Active hydroCHLOROthiazide 25 mg oral tablet (20 sources) Thiazide Diuretic Start: 024 take 1 tablet by mouth twice daily hydroCHLOROthiazide (HYDRODiuril) 25 MG tablet Indications: Benign hypertension (CMS/HCC) TAKE 1 TABLET BY MOUTH TWICE A DAY 180 tablet 3 07/17/2023 Active Start: 08-06-2022 take 1 tablet by kirstin twice daily hydroCHLOROthiazide (HYDRODiuril) 25 MG tablet Indications: Benign hypertension (CMS/HCC) TAKE 1 TABLET BY MOUTH TWICE A DAY 180 tablet 3 08/06/2022 Active take 1 tablet by kirstin once daily hydroCHLOROthiazide 25 MG Oral Tablet Take 1 tablet daily Quantity: 90 Refills: 3 Ordered: 11-Dec-2017 DO Active Microzide Active Hydrochlorothiazide-25 mg (10 sources) Hydrochlorothiaz jordyn-25 mg Active levothyroxine sodium 0.125 mg oral tablet (20 sources) l-Thyroxine Start: 03-23-2024 take 1 tablet by mouth once daily Synthroid 125 MCG tablet Indications: Other specified hypothyroidism (CMS/HCC) TAKE 1 TABLET BY MOUTH EVERY DAY 90 tablet 3 03/23/2024 Active Start: 02-25-2023 End: 03-23-2024 take 1 tablet by mouth once daily Synthroid 125 MCG tablet Indications: Other specified hypothyroidism (CMS/HCC) TAKE 1 TABLET BY MOUTH EVERY DAY 90 tablet 3 02/25/2023 03/23/2024 Discontinued take 1 tablet by kirstin th once daily before breakfast levothyroxine (SYNTHROID) 150 mcg tablet Take 150 mcg by mouth daily before breakfast. Active take 1 tablet by kirstin th once daily Synthroid 125 MCG Oral Tablet TAKE 1 TABLET DAILY DIRECTED. Quantity: 0 Refills: 0 Ordered: 11-Dec-2017 DO Active Synthroid Active Magnesium (10 sources) Magnesium Active metFORMIN hydrochloride 500 mg oral tablet (20 sources) Biguanide Start: 06-03-2015 take 1 tablet by mouth once daily metFORMIN (Glucophage) 500 MG tablet Indications: Controlled type 2 diabetes mellitus without complication, with long-term current use of insulin ([facility]) TAKE 1 TABLET BY MOUTH EVERY DAY 90 tablet 3 07/25/2022 Active End: 12-11-2023 take 1 tablet by mouth twice daily at mealtime metFORMIN (GLUCOPHAGE) 500 mg tablet Take 500 mg by mouth twice daily with meals. 12/11/2023 Discontinued (Discontinued by Patient) metFORMIN HCl Ac tive methylPREDNISolone (5 sources) Corticosteroid Start: 03-02-2024 End: 03-09-2024 methylPREDNISolone (Medrol Dospak) 4 MG tablets Indications: Knee pain, unspecified chronicity, unspecified laterality Follow schedule on package instructions 21 tablet 03/02/2024 03/09/2024 Active Start: 10-22-2023 End: 10-22-2023 methylPREDNISolone acetate ( DEPO-Medrol) injection 40 mg Start: 10-22-2023 End: 10-22-2023 40 mg, Intra-articular, Once PRN Procedure, Starting on Sat10/22/23 at 1302, For 1 dose mupirocin 0.02 mg/mg topical ointment (1 source) RNA Synthetase Inhibitor Antibacterial Start: 12-11-2023 End: 12-16-2023 mupirocin (BACTROBAN) 2 % ointment Indications: Pre-op exam two times a day for 5 days. Apply 0.5 inch with cotton swab (Q-tip) to each nostril in the morning and evening for 5 days prior to and including day of surgery. 22 g 12/11/2023 12/16/2023 Active Neuriva - (5 sources) Neuriva - as directed Orally Active Norman 3 Fish Oil (10 sources) Norman 3 Fish Oil Active Norman-3 Fatty Acids, FISH OIL, 360-1,200 mg cap (1 source) Norman-3 Fatty Acids, FISH OIL, 360-1,200 mg cap Take 1 capsule by mouth. Active ondansetron 8 mg disintegrating oral tablet (1 source) Serotonin-3 Receptor Antagonist Start: 06-07-2022 take 1 tablet by mouth every eight hours as needed for nausea ondansetron ODT (Zofran-ODT) 8 MG disintegrating tablet Take 8 mg by mouth every 8 (eight) hours if needed for nausea. 0 06/07/2022 Active microencapsulated potassium chloride 10 meq extended release oral tablet (20 sources) Start: 08-29-2023 take 1 tablet by mouth once daily as needed KLOR-CON 10 MEQ ER tablet Indications: Impaired fasting glucose , Systolic murmur , Edema of extremities TAKE 1 TABLET (10 MEQ) BY MOUTH DAILY NEEDED (ON DAYS WHEN LASIX IS TAKEN) DO NOT CRUSH OR CHEW. 90 tablet 1 08/29/2023 Active predniSONE 20 mg oral tablet (11 sources) Start: 03-05-2023 predniSONE (Deltasone) 20 MG tablet Indications: Lumbar back pain Take 2 tablets for 4 days, then take 1 tablet for 3 days by mouth 11 tablet 0 03/05/2023 Active take 1 tablet by kirstin every twenty-four hours predniSONE 20 MG 1 tablet Orally Once a day Not-Taking pregabalin 300 mg oral capsule (20 sources) Start: 09-25-2023 End: 02-25-2024 take 1 capsule by mouth at bedtime pregabalin (Lyrica) 300 MG capsule Indications: Neuralgia and neuritis, unspecified TAKE 1 CAPSULE (300 MG) BY MOUTH IN THE MORNING AND AT BEDTIME 180 capsule 1 02/25/2024 Active Start: 04-01-2023 take 1 capsule by [facility] in the morning pregabalin (Lyrica) 300 MG [...] Start: 10-19-2022 take 1 capsule by mo ut twice daily Lyrica 150 MG Oral Capsule TAKE 1 CAPSULE TWICE DAILY. Quantity: 0 Refills: 0 Ordered: 19-Oct-2022 DO Start : 19-Oct-2022 Active Probiotic Daily (10 sources) Probiotic Daily Active saccharomyces boulardii 250 mg oral capsule (20 sources) take 1 capsule by mouth in the morning saccharomyces boulardii (Florastor) 250 MG capsule Take 250 mg by mouth in the morning and 250 mg in the evening. Active 0.25 mg, 0.5 mg dose 1.5 ml semaglutide 1.34 mg/ml pen injector (3 sources) Start: 06-12-2022 semaglutide (Ozempic, 0.25 or 0.5 MG/DOSE,) 2 MG/1.5ML solution pen-injector 0.5 mg Subcutaneous qweekly for 30 days 0 06/12/2022 Active semaglutide (OZE MPIC) 0.25 mg or 0.5 mg(2 mg/1.5 mL) pen Inject 0.25 mg subcutaneously one time a week. Injections on Sundays Last injection as 12/08/2023 Active semaglutide (Ozempic, 1 MG/DOSE,) 4 MG/3ML solution pen-injector (20 sources) Start: 12-09-2023 End: 06-06-2024 inject 1 mg by subcutaneous injection every week semaglutide (Ozempic, 1 MG/DOSE,) 4 MG/3ML solution pen-injector Indications: Type 2 diabetes mellitus without complication, without long-term current use of insulin ([facility]) Inject 1 mg under the skin 1 (one) time per week 9 mL 1 12/09/2023 06/06/2024 Active Semaglutide,0.25 or 0.5MG/DOS, (Ozempic, 0.25 or 0.5 MG/DOSE,) 2 MG/3ML solution pen-injector (4 sources) Start: 11-13-2023 End: 12-09-2023 inject 0.25 mg by subcutaneous injection every week, then inject 0.5 mg by subcutaneous injection every week Semaglutide,0.25 or 0.5MG/DOS, (Ozempic, 0.25 or 0.5 MG/DOSE,) 2 MG/3ML solution pen-injector Indications: Type 2 Diabetes Mellitus Inject 0.25 mg under the skin 1 (one) time per week for 28 days, THEN 0.5 mg 1 (one) time per week for 14 days. 3 mL 11/13/2023 12/09/2023 Discontinued Start: 11-13-2023 End: 12-24-2023 inject 0.25 mg by subcutaneous injection every week, then inject 0.5 mg by subcutaneous injection every week Semaglutide,0.25 or 0.5MG/DOS, (Ozempic, 0.25 or 0.5 MG/DOSE,) 2 MG/3ML solution pen-injector Indications: Type 2 Diabetes Mellitus Inject 0.25 mg under the skin 1 (one) time per week for 28 days, THEN 0.5 mg 1 (one) time per week for 14 days. 3 mL 11/13/2023 12/24/2023 Active ubidecarenone 200 mg oral capsule (20 sources) take 1 capsule by mo [facility] once daily coenzyme Q-10 200 MG capsule Take 1 capsule by mouth 1 (one) time each day at the same time. Active Womens Daily Formula (10 sources) Womens Daily For santana Active Completed/Discontinued Medications Medication Drug Class(es) Dates Sig (Normalized) Sig (Original) ALPRAZolam 0.5 mg oral tablet (20 sources) Benzodiazepine Start: 09-25-2023 End: 04-26-2024 ALPRAZolam (Xanax) 0.5 MG tablet Indications: Psychophysiological insomnia Take 1 tablet (0.5 mg) by mouth as needed at bedtime for anxiety 30 tablet 02/25/2024 03/27/2024 Discontinued (Reorder) Start: 02-28-2023 ALPRAZolam (Xa nax) 0.5 MG tablet Indications: Psychophysiological insomnia Take 1 tablet (0.5 mg) by mouth as needed at bedtime for anxiety 30 tablet 0 02/28/2023 Active Start: 07-22-2015 [facility] ALPRAZolam 0.25 MG Oral Tablet TAKE 1 TABLET DAILY. Quantity: 0 Refills: 0 Ordered: 22-Jul-2015 DO Start : 22-Jul-2015 Active ALPRAZolam Activ e betamethasone 3 mg/ml / betamethasone acetate 3 mg/ml injectable suspension (4 sources) Corticosteroid Start: 10-24-2023 End: 10-24-2023 betamethasone acetate-betamethasone sodium phosphate (C[place]estone) injection 1 mL Start: 10-24-2023 End: 10-24-2023 1 mL, Intra-articular, Once PRN Procedure, Starting on Patricia 10/24/23 at 0825, For 1 dose Cinnamon Preparation (17 sources) Non-Standardized Food Allergenic Extract Cinnamon Active Cinnamon TABS Qu antity: 0 Refills: 0 Ordered: 29-May-2017 DO Active Co Q 10 CAPS (7 sources) Co Q 10 CAPS Quantity: 0 Refills: 0 Ordered: 29-May-2017 DO Active ibuprofen 600 mg oral tablet (4 sources) Nonsteroidal Anti-inflammatory Drug Start: 2 End: 4 take 1 tablet by mouth every six hours ibuprofen 600 MG tablet Take 1 tablet by mouth every 6 (six) hours. 12/21/2021 10/22/2023 Discontinued (Therapy completed) magnesium oxide 400 mg oral tablet (2 sources) take 1 tablet by mouth once daily Magnesium Oxide 400 (240 Mg) MG Oral Tablet Take 1 tablet daily Quantity: 0 Refills: 0 Ordered: 29-May-2017 DO Active Multivital TABS (7 sources) Multivital TABS Quantity: 0 Refills: 0 Ordered: 29-May-2017 DO Active Norman 3 CAPS (7 sources) Norman 3 CAPS Quantity: 0 Refills: 0 Ordered: 29-May-2017 DO Active Warfarin (10 sources) Vitamin K Antagonist Warfarin 5m g Not-Taking Problems Active Problems Problem Classification Problem Date Documented Date Episodic/Chronic Acquired foot deformities (20 sources) Acquired hallux rigidus; Translations: [Hallux rigidus, unspecified foot] Onset: 9 09-26-2022 Chronic Anxiety disorders (20 sources) Anxiety; Translations: [Anxiety disorder, unspecified] Onset: 6 09-26-2022 Chronic Cataract (1 source) Nuclear senile cataract; Translations: [Age-related nuclear cataract, unspecified eye] Onset: 3 09-26-2022 Chronic Coagulation and hemorrhagic disorders (20 sources) Factor V deficiency; Translations: [Hereditary deficiency of other clotting factors] Onset: 6 09-26-2022 Chronic Complications of surgical procedures or medical care (20 sources) Postoperative hypothyroidism; Translations: [Postprocedural hypothyroidism] Onset: 5 09-26-2022 Chronic Diabetes mellitus with complications (2 sources) 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 2; Translations: [Type 2 diabetes mellitus with diabetic cataract] 11-14-2023 Chronic Disorders of lipid metabolism (20 sources) Hyperlipidemia; Translations: [Other and unspecified hyperlipidemia] Onset: 5 09-26-2022 Chronic Essential hypertension (20 sources) Essential hypertension; Translations: [Unspecified essential hypertension] Onset: 5 09-26-2022 Chronic Glaucoma (20 sources) Ocular hypertension; Translations: [Ocular hypertension, unspecified eye] Onset: 3 09-26-2022 Chronic Headache; including migraine (1 source) Migraine; Translations: [Migraine, unspecified, not intractable, without status migrainosus] Onset: 6 09-26-2022 Chronic Heart valve disorders (3 sources) Heart murmur; Translations: [Cardiac murmur, unspecified] Onset: 4 12-11-2023 Episodic Late effects of cerebrovascular disease (7 sources) Sequela of cerebrovascular accident; Translations: [Unspecified late effects of cerebrovascular disease] Chronic Miscellaneous mental health disorders (6 sources) Psychophysiologic insomnia; Translations: [Psychophysiologic insomnia] 11-27-2023 Chronic Neoplasms of unspecified nature or uncertain behavior (2 sources) Neoplastic disease; Translations: [Neoplasm of unspecified behavior of bone, soft tissue, and skin] 02-03-2024 Episodic Occlusion or stenosis of precerebral arteries (20 sources) Symptomatic carotid artery stenosis; Translations: [Occlusion and stenosis of carotid artery without mention of cerebral infarction] Onset: 3 09-26-2022 Chronic Osteoarthritis (8 sources) Osteoarthritis of right knee joint; Translations: [Unilateral primary osteoarthritis, right knee] 10-22-2023 Chronic Other aftercare (7 sources) Postoperative visit; Translations: [Aftercare following surgery of the circulatory system, NEC] Episodic Other and unspecified benign neoplasm (2 sources) Melanocytic nevus of trunk; Translations: [Melanocytic nevi of trunk] 02-03-2024 Episodic Other circulatory disease (7 sources) H/O: hypertension; Translations: [Personal history of other diseases of circulatory system] Episodic Other circulatory disease (2 sources) History of cerebrovascular accident; Translations: [Personal history of transient ischemic attack (TIA), and cerebral infarction without residual deficits] Onset: 4 12-11-2023 Episodic Other circulatory disease (1 source) Personal history of transient ischemic attack (TIA), and cerebral infarction without residual deficits; Translations: [History of CVA (cerebrovascular accident)] Onset: 4 Episodic Other connective tissue disease (18 sources) History of total knee arthroplasty; Translations: [Presence of right artificial knee joint] 01-08-2024 Chronic Other connective tissue disease (2 sources) Neuropathy; Translations: [Neuralgia and neuritis, unspecified] 03-31-2023 Episodic Other eye disorders (20 sources) Posterior vitreous detachment of left eye; Translations: [Vitreous degeneration, left eye] Onset: 3 09-26-2022 Chronic Other nervous system disorders (10 sources) Chronic pain; Translations: [Other chronic pain] Chronic Other nervous system disorders (4 sources) Other chronic pain Chronic Other nervous system disorders (3 sources) Chronic pain syndrome; Translations: [Chronic pain syndrome] 11-13-2023 Chronic Other nervous system disorders (1 source) Other acute postprocedural pain; Translations: [Acute post-operative pain] Onset: 4 Episodic Other non-traumatic joint disorders (20 sources) Pain in right knee; Translations: [Pain in joint, lower leg] 01-08-2024 Episodic Other nutritional; endocrine; and metabolic disorders (20 sources) Obese class II; Translations: [Obesity, unspecified] Onset: 7 09-26-2022 Chronic Other nutritional; endocrine; and metabolic disorders (1 source) Obesity; Translations: [Obesity, unspecified] Onset: 6 09-26-2022 Chronic Other nutritional; endocrine; and metabolic disorders (7 sources) H/O: raised blood lipids; Translations: [Personal history of other endocrine, metabolic, and immunity disorders] Episodic Other skin disorders (2 sources) Lentiginosis; Translations: [Other melanin hyperpigmentation] 02-03-2024 Episodic Other skin disorders (2 sources) Seborrheic keratosis; Translations: [Other seborrheic keratosis] 02-03-2024 Episodic Residual codes; unclassified (20 sources) Obstructive sleep apnea syndrome; Translations: [Obstructive sleep apnea (adult) (pediatric)] Onset: 7 09-26-2022 Chronic Spondylosis; intervertebral disc disorders; other back problems (20 sources) Solitary sacroiliitis; Translations: [Sacroiliitis, not elsewhere classified] Onset: 3 Chronic Thyroid disorders (20 sources) Hypothyroidism; Translations: [Hypothyroidism, unspecified] Onset: 3 09-26-2022 Chronic Unclassified (2 sources) Z48.812 41974/82 Onset: 8 Unclassified (1 source) Obesity, Class II, BMI 35-39.9; Translations: [Obesity, Class II, BMI 35-39.9] Onset: 4 Past or Other Problems Problem Classification Problem Date Documented Date Episodic/Chronic Allergic reactions (1 source) Allergy to penicillin; Translations: [Allergy status to penicillin] Onset: 12-11-2023 Resolved: 12-11-2023 12-11-2023 Episodic Diabetes mellitus without complication (20 sources) Type 2 diabetes mellitus without complication; Translations: [Type 2 diabetes mellitus without complications] Onset: 09-26-2022 Resolved: 09-26-2022 09-26-2022 Chronic Diabetes mellitus without complication (20 sources) Prediabetes; Translations: [Other abnormal glucose] Onset: 06-03-2015 09-26-2022 Episodic Other bone disease and musculoskeletal deformities (2 sources) Somatic dysfunction of lumbar region; Translations: [Segmental and somatic dysfunction of lumbar region] 10-23-2023 Episodic Other bone disease and musculoskeletal deformities (2 sources) Somatic dysfunction of pelvic region; Translations: [Segmental and somatic dysfunction of pelvic region] 10-23-2023 Episodic Other bone disease and musculoskeletal deformities (2 sources) Cervical somatic dysfunction; Translations: [Segmental and somatic dysfunction of cervical region] 10-23-2023 Episodic Other bone disease and musculoskeletal deformities (2 sources) Somatic dysfunction of thoracic region; Translations: [Segmental and somatic dysfunction of thoracic region] 10-23-2023 Episodic Other circulatory disease (20 sources) History of cerebrovascular accident without residual deficits; Translations: [Personal history of transient ischemic attack (TIA), and cerebral infarction without residual deficits] Onset: 12-07-2015 09-26-2022 Episodic Other liver diseases (20 sources) Elevated levels of transaminase & lactic acid dehydrogenase; Translations: [Elevated levels of transaminase & lactic acid dehydrogenase] Onset: 05-16-2016 09-26-2022 Episodic Other non-traumatic joint disorders (1 source) Hip pain; Translations: [Pain in unspecified hip] Onset: 09-26-2022 09-26-2022 Episodic Other skin disorders (20 sources) Atrophic condition of skin; Translations: [Other atrophic disorders of skin] Onset: 09-26-2022 09-26-2022 Episodic Residual codes; unclassified (20 sources) Insomnia; Translations: [Insomnia, unspecified] Onset: 01-12-2015 09-26-2022 Episodic Spondylosis; intervertebral disc disorders; other back problems (20 sources) Radiculopathy, lumbar region; Translations: [Sciatica] Onset: 09-26-2022 Episodic Results Test Name Value Interpretation Reference Range Facility No Panel Informationon 02-02 Type of biopsy: tangential Informed consent: discussed and consent obtained Informed consent comment: The risks and benefits of the biopsy were discussed. Risks include but are not limited to bleeding, infection, scarring, pain, and nerve damage. An opportunity to ask questions prior to the procedure was permitted and all questions were answered. Patient was prepped and draped in usual sterile fashion: area cleansed with alcohol. Anesthesia: the lesion was anesthetized in a standard fashion Anesthetic: 1% lidocaine w/ epinephrine 1-100,000 buffered w/ 8.4% NaHCO3 Instrument used: DermaBlade Hemostasis achieved with: electrodesiccation Outcome: patient tolerated procedure well Outcome comment: The specimen was placed in a prelabeled formalin container to be sent for pathology Post-procedure details: sterile dressing applied and wound care instructions given Post-procedure details comment: Emphasized need to contact clinic for any signs of infection, uncontrollable bleeding, or complications. Dressing type: bandage Additional details: Photo taken Amount of lidocaine used: 0.[address] [facility] Type of biopsy: tangential Informed consent: discussed and consent obtained Informed consent comment: The risks and benefits of the biopsy were discussed. Risks include but are not limited to bleeding, infection, scarring, pain, and nerve damage. An opportunity to ask questions prior to the procedure was permitted and all questions were answered. Patient was prepped and draped in usual sterile fashion: area cleansed with alcohol. Anesthesia: the lesion was anesthetized in a standard fashion Anesthetic: 1% lidocaine w/ epinephrine 1-100,000 buffered w/ 8.4% NaHCO3 Instrument used: DermaBlade Hemostasis achieved with: electrodesiccation Outcome: patient tolerated procedure well Outcome comment: The specimen was placed in a prelabeled formalin container to be sent for pathology Post-procedure details: sterile dressing applied and wound care instructions given Post-procedure details comment: Emphasized need to contact clinic for any signs of infection, uncontrollable bleeding, or complications. Dressing type: bandage Additional details: Photo taken Amount of lidocaine used: 0.5 cc [facility] Basic metabolic 2000 panelon 01-02-2024 Anion gap [Moles/Vol] 10 mmol/L Normal 8-15 [facility] Comment on above: Order Comment: Speci men Type: BLOOD SPECIMEN Ordering Facility: [facility] Address: [address] [place] [address] Performed By: #### 2 4321-2 #### [facility] [place] [id number] [address] [place] [address] [place] Calcium [Mass/Vol] 9.2 mg/dL Normal 8.5-10.2 [facility] Comment on above: Order Comment: Speci men Type: BLOOD SPECIMEN Ordering Facility: [facility] Address: [address] [place] [address] Performed By: #### 2 4321-2 #### [facility] [place] [id number] [address] [place] [address] [place] Chloride [Moles/Vol] 103 mmol/L Normal 98-107 [facility] Comment on above: Order Comment: Speci men Type: BLOOD SPECIMEN Ordering Facility: [facility] Address: [address] [place] [address] Performed By: #### 2 4321-2 #### [facility] CLIA [id number] [address] [place] [address] [place] CO2 [Moles/Vol] 28 mmol/L Normal 22-30 [facility] Comment on above: Order Comment: Speci men Type: BLOOD SPECIMEN Ordering Facility: [facility] Address: [address] [place] [address] Performed By: #### 2 4321-2 #### [facility] CLIA [id number] [address] [place] [address] [place] Creatinine [Mass/Vol] 0.85 mg/dL Normal 0.58-0.96 [facility] Comment on above: Order Comment: Iván fernandez Type: BLOOD SPECIMEN Ordering Facility: [facility] Address: [address] [place] [address] Performed By: #### 2 4321-2 #### [facility] [place] [id number] [address] [place] [address] [place] Creatinine and Glomerular filtration rate.predicted panel (S/P/Bld) 77 mL/min/1.73m??? Normal >=60 [facility] Comment on above: Order Comment: Iván fernandez Type: BLOOD SPECIMEN Ordering Facility: [facility] Address: [address] [place] [address] Result Comment: Viviane mated Glomerular Filtration Rate (eGFR) is calculated using the 2020 CKD-EPI creatinine equation. This equation utilizes serum creatinine, sex, and age as parameters. The creatinine assay has traceable calibration to isotope dilution-mass spectrometry. Refer to KDIGO guidelines for clinical interpretation. In patients with unstable renal function, e.g. those with acute kidney injury, the eGFR may not accurately reflect actual GFR. Performed By: #### 2 4321-2 #### [facility] [place] [id number] [address] [place] [address] [place] Glucose [Mass/Vol] 152 mg/dL High 74-99 [facility] Comment on above: Order Comment: Iván fernandez Type: BLOOD SPECIMEN Ordering Facility: [facility] Address: [address] [place] [address] Result Comment: The [place] Diabetes Association (ADA) provides guidance for cutoff values for fasting glucose and random glucose. The ADA defines fasting as no caloric intake for at least 8 hours. Fasting plasma glucose results between 100 to 125 mg/dL indicate increased risk for diabetes (prediabetes). Fasting plasma glucose results greater than or equal to 126 mg/dL meet the criteria for diagnosis of diabetes. In the absence of unequivocal hyperglycemia, results should be confirmed by repeat testing. In a patient with classic symptoms of hyperglycemia or hyperglycemic crisis, random plasma glucose results greater than or equal to 200 mg/dL meet the criteria for diagnosis of diabetes. Reference: Standards of Medical Care in Diabetes 2016, [place] Diabetes Association. Diabetes Care. 2016.39(Suppl 1). Performed By: #### 2 4321-2 #### [facility] CLIA [id number] [place] Potassium [Moles/Vol] 3.5 mmol/L Low 3.7-5.1 [facility] Comment on above: Order Comment: Speci men Type: BLOOD SPECIMEN Ordering Facility[facility] Address: [address] [place] [address] Performed By: #### 2 4321-2 #### [facility] CLIA [id number] [place] Sodium [Moles/Vol] 141 mmol/L Normal 136-144 [facility] Comment on above: Order Comment: Speci men Type: BLOOD SPECIMEN Ordering Facility: [facility] Address: [address] [place] [address] Performed By: #### 2 4321-2 #### [facility] CLIA [id number] [address] [place] [address] [place] Urea nitrogen [Mass/Vol] 21 mg/dL Normal 7-21 [facility] Comment on above: Order Comment: Speci men Type: BLOOD SPECIMEN Ordering Facility: [facility] Address: [address] [place] [address] Performed By: #### 2 4321-2 #### [facility] CLIA [id number] [address] [place] [address] [place] CBC panel Auto (Bld)on 01-01 Erythrocyte distribution width (RBC) [Ratio] 12.7 % Normal 11.5-15.0 [facility] Comment on above: Order Comment: Speci men Type: BLOOD SPECIMEN Ordering Facility: [facility] Address: [address] [place] [address] Performed By: #### 5 8410-2 #### [facility] CLIA [id number] [address] [place] [address] [place] Hematocrit (Bld) [Volume fraction] 40.1 % Normal 36.0-46.0 [facility] Comment on above: Order Comment: Speci men Type: BLOOD SPECIMEN Ordering Facility: [facility] Address: [address] [place] [address] Performed By: #### 5 8410-2 #### [facility] CLIA [id number] [address] [place] [address] [place] Hemoglobin (Bld) [Mass/Vol] 13.6 g/dL Normal 11.5-15.5 [facility] Comment on above: Order Comment: Speci men Type: BLOOD SPECIMEN Ordering Facility: [facility] Address: [address] [place] [address] Performed By: #### 5 8410-2 #### [facility] CLIA [id number] [address] [place] [address] [place] MCH (RBC) [Entitic mass] 29.2 pg Normal 26.0-34.0 [facility] Comment on above: Order Comment: Speci men Type: BLOOD SPECIMEN Ordering Facility: [facility] Address: [address] [place] [address] Performed By: #### 5 8410-2 #### [facility] CLIA [id number] [address] [place] [address] [place] MCHC (RBC) [Mass/Vol] 33.9 g/dL Normal 30.5-36.0 [facility] Comment on above: Order Comment: Speci men Type: BLOOD SPECIMEN Ordering Facility[facility] Address: [address] [place] [address] Performed By: #### 5 8410-2 #### [facility] CLIA [id number] [address] [place] [address] [place] MCV (RBC) [Entitic vol] 86.2 fL Normal 80.0-100.0 [facility] Comment on above: Order Comment: Speci men Type: BLOOD SPECIMEN Order[facility] Address: [address] [place] [address] Performed By: #### 5 8410-2 #### [facility] CLIA [id number] [address] [place] [address] [place] Nucleated RBC (Bld) [#/Vol] 10*3/uL Normal <0.01 [facility] Comment on above: Order Comment: Speci men Type: BLOOD SPECIMEN Ordering Facility[facility] Address: [address] [place] [address] Performed By: #### 5 8410-2 #### [facility] CLIA [id number] [address] [place] [address] [place] Platelet mean volume (Bld) [Entitic vol] 10.2 fL Normal 9.0-12.7 [facility] Comment on above: Order Comment: Speci men Type: BLOOD SPECIMEN Ordering Facility: [facility] Address: [address] [place] [address] Performed By: #### 5 8410-2 #### [facility] CLIA [id number] [address] [place] [address] [place] Platelets (Bld) [#/Vol] 237 10*3/uL Normal 150-400 [facility] Comment on above: Order Comment: Speci men Type: BLOOD SPECIMEN Ordering Facility[facility] Address: [address] [place] [address] Performed By: #### 5 8410-2 #### [facility] CLIA [id number] [address] [place] [address] [place] RBC (Bld) [#/Vol] 4.65 10*6/uL Normal 3.90-5.20 [facility] Comment on above: Order Comment: Speci men Type: BLOOD SPECIMEN Order[facility] Address: [address] [place] [address] Performed By: #### 5 8410-2 #### [facility] CLIA [id number] [address] [place] [address] [place] WBC (Bld) [#/Vol] 10.30 10*3/uL Normal 3.70-11.00 [facility] Comment on above: Order Comment: Speci men Type: BLOOD SPECIMEN Ordering Facility[facility] Address: [address], [place] [id number] Performed By: #### 5 8410-2 #### [facility] CLIA [id number] [address] [place] [address] [place] [facility] BAS METAB 2000 PNL SERPL on 01-02-2024 Anion gap [Moles/Vol] 10 mmol/L 8 - 15 mmol/L [facility] Calcium [Mass/Vol] 9.2 mg/dL 8.5 - 10. 2 mg/dL [facility] Chloride [Moles/Vol] 103 mmol/L 98 - 107 mmol/L [facility] CO2 [Moles/Vol] 28 mmol/L 22 - 30 mmol/L [facility] Creatinine [Mass/Vol] 0.85 mg/dL 0.58 - 0.96 mg/dL [facility] GFR/1.73 sq M.predicted CKD-EPI (S/P/Bld) [Vol rate/Area] 77 - PINF [facility] Comment on above: Estimated Glomerular Filtration Rate (eGFR) is calculated using the 2020 CKD-EPI creatinine equation. This equation utilizes serum creatinine, sex, and age as parameters. The creatinine assay has traceable calibration to isotope dilution-mass spectrometry. Refer to KDIGO guidelines for clinical interpretation. In patients with unstable renal function, e.g. those with acute kidney injury, the eGFR may not accurately reflect actual GFR. Glucose [Mass/Vol] 152 mg/dL High 74 - 99 mg/dL [facility] Comment on above: The [place] Diabete s Association (ADA) provides guidance for cutoff values for fasting glucose and random glucose. The ADA defines fasting as no caloric intake for at least 8 hours. Fasting plasma glucose results between 100 to 125 mg/dL indicate increased risk for diabetes (prediabetes). Fasting plasma glucose results greater than or equal to 126 mg/dL meet the criteria for diagnosis of diabetes. In the absence of unequivocal hyperglycemia, results should be confirmed by repeat testing. In a patient with classic symptoms of hyperglycemia or hyperglycemic crisis, random plasma glucose results greater than or equal to 200 mg/dL meet the criteria for diagnosis of diabetes. Reference: Standards of Medical Care in Diabetes 2016, [place] Diabetes Association. Diabetes Care. 2016.39(Suppl 1). Interpretation and review of laboratory results Abnormal [facility] Potassium [Moles/Vol] 3.5 mmol/L Low 3.7 - 5.1 mmol/L [facility] Sodium [Moles/Vol] 141 mmol/L 136 - 144 mmol/L [facility] Urea nitrogen [Mass/Vol] 21 mg/dL 7 - 21 mg/dL [facility] Specimen Type: BLOOD SPECIMEN Order[facility] Address: [address] [place] [address] [facility] PNL BLD AUTOon 01-01 [facility] NRBC # BLD AUTO <0.01 NINF [facility] PLATELET # BLD AUTO 237 [facility] PMV BLD AUTO 10.2 fL 9.0 - 12.7 fL [facility] WBC # BLD AUTO 10.3 [facility] Erythrocyte distribution width (RBC) [Ratio] 12.7 % 11.5 - 15.0 % [facility] Hematocrit (Bld) [Volume fraction] 40.1 % 36.0 - 46.0 % [facility] Hemoglobin (Bld) [Mass/Vol] 13.6 g/dL 11.5 - 15.5 g/dL [facility] MCH (RBC) [Entitic mass] 29.2 pg 26.0 - 34.0 pg [facility] MCHC (RBC) [Mass/Vol] 33.9 g/dL 30.5 - 36.0 g/dL [facility] MCV (RBC) [Entitic vol] 86.2 fL 80.0 - 100.0 fL [facility] RBC (Bld) [#/Vol] 4.65 10*6/uL 3.90 - 5.2 0 m/uL [facility] Specimen Type: BLOOD SPECIMEN Ordering [facility] Address: [address] [place] [address] Original [facility] CNDSon 01-02-2024 CN HNO ID: [id number] Author: JORGE L HATCH MD Service: Orthopaedic Surgery Author Type: Physician Devops Engineer Type: Discharge Summary Filed: 01/14/2024 13:55 Note Text: ----- Attestation signed by Jorge L Hatch MD at 01/14/2024 1:55 PM Agree with assessment ----- ORTHOPEDIC SURGERY DISCHARGE SUMMARY: Patient Name: Carolynn Givens : 1960 ADMISSION DATE: 01/01/2024 DISCHARGE DATE: 01/02/2024 Attending Physician: Jorge L Hatch MD Primary Diagnosis: Unilateral primary osteoarthritis, right knee [M17.11] Operations During Hospitalization: Procedure(s) (LRB): ARTHROPLASTY REPLACE JOINT TOTAL KNEE JOÃO/EX STAY (Right) Procedures During Hospitalization: No procedures performed Hospital Course: Carolynn is a 63 year old female complaining of right knee pain not responsive to a comprehensive course of conservative treatment. right total knee arthroplasty was proposed and the patient wishes to proceed and was medically cleared prior to the procedure. Patient underwent a right total knee arthroplasty and was transferred to the PACU in stable condition, She was then admitted to the hospital. Post operatively She did well. Post-operative HgB was stable and within acceptable range and remained there throughout the hospital stay not requiring transfusion. Wound was without sign of infection. She was able to actively participate in a physical and occupational therapy program for gait training and mobilization. Due to the operative findings and procedure performed which is consistent with a major orthopedic procedure, the postoperative analgesia will exceed the allowable morphine equivalent dose. PHYSICAL EXAM: See progress note Patient Condition at Discharge: Stable Discharge Disposition: home with self care DISCHARGE MEDICATION: Medication List START taking these medications docusate sodium 100 mg capsule Commonly known as: COLACE Take 1 capsule by mouth two times a day for 7 days. While taking narcotic pain medication oxyCODONE IR 5 mg immediate release tablet Commonly known as: ROXICODONE Take 1-2 tablets by mouth every 4-6 hours as needed for pain. CONTINUE taking these medications acyclovir 400 mg tablet Commonly known as: ZOVIRAX aspirin, enteric coated 81 mg EC tablet Commonly known as: ASPIRIN, ENTERIC COATED atorvastatin 80 mg tablet Commonly known as: LIPITOR baclofen 10 mg tablet bisoprolol-hydroCHLOROthi azide 5-6.25 mg per tablet Commonly known as: ZIAC Cinnamon Bark 500 mg Cap clopidogrel 75 mg tablet Commonly known as: PLAVIX Coenzyme Q10 200 mg Cap diclofenac 1 % topical gel Commonly known as: VOLTAREN DULoxetine 30 mg capsule Commonly known as: CYMBALTA furosemide 40 mg tablet Commonly known as: LASIX GLUCOSAMINE 500 mg Tab Generic drug: Glucosamine Sulfate hydroCHLOROthiazide 25 mg tablet KLOR-CON M10 10 mEq tablet Generic drug: potassium chloride ER Norman-3 Fatty Acids (FISH OIL) 360-1,200 mg Cap OZEMPIC 0.25 mg or 0.5 mg(2 mg/1.5 mL) pen Generic drug: semaglutide pregabalin 300 mg capsule Commonly known as: LYRICA SYNTHROID 150 mcg tablet Generic drug: levothyroxine TYLENOL ARTHRITIS ORAL VITAMIN D3 ORAL XANAX 0.25 mg tablet Generic drug: ALPRAZolam Where to Get Your Medications These medications were sent to [facility] [address] [place] [id number] - [address] [place] [address] - [phone] [place] [address] oxyCODONE IR 5 mg immediate release tablet You can get these medications from any pharmacy You don't need a prescription for these medications docusate sodium 100 mg capsule Future Appointments: SIGNATURE: Macho Salazar PA-C PATIENT NAME: Carolynn Givens DATE: 01/02/24 TIME: 3:39 PM [facility] THERAPY NTon 01-02-2024 THERAPY NT HNO ID: [id number] Author: JAYDE MONROE OT/L Service: Occupational Therapy Author Type: Occupational Therapist Type: Therapy (PT/OT/Speech/Resp) Filed: 01/02/2024 15:23 Note Text: Occupational Therapy Evaluation Summary SERVICE DATE: 01/02/2024 SERVICE TIME: 1426 to 1505 ROOM: [place] [address] OT 6 Clicks Score: 22 Total Joint Replacement Discharge Readiness: Cleared from Occupational Therapy DISCHARGE RECOMMENDATIONS Home Recommended Discharge Equipment: Sock Aid ASSESSMENT Response to Therapy Interventions: Good Participation in Activities, Pain PRECAUTIONS Total Knee Replacement, Weight Bearing Restrictions Right Lower Extremity Weight Bearing Status: WBAT CURRENT HOSPITAL COURSE s/p R TKA 12/31 ([facility]) Relevant Past Medical History: CVA after surgery HOME LIVING Patient Lives With: Spouse Assistance Available: 24-Hour Entry To Home: Stairs, Without Rail (small 4 step) Number Of Stairs Into Home: 1 Number Of Stairs To Bed/Bath: 1st floor bed and bath Tub/Shower Type: tub/shower with 2 grab bars, shower chair Laundry: spouse will A Equipment Owned: Walker- Wheeled, Shower Chair, Grab Bars- Shower, Cane, Antenna Machine Operator, Long Handled Shoe Horn PRIOR FUNCTIONAL LEVEL Within Functional Limits Pt IND ADLs 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 RN aware. COGNITION Responsiveness: Alert, Awake Follows Commands: 3-step Commands THERAPY DIAGNOSIS Reduced mobility-other, Decreased activities of daily living (ADL), Muscle Weakness (generalized), General symptoms and signs-other TREATMENT INTERVENTIONS Evaluation, Self Halfway Management (60305) Timed Code Treatment (minutes): 23 Skilled Treatment Time (minutes): 39 TRAINING AND EDUCATION PROVIDED Assistive Device Use, Bed Mobility, Adaptive Equipment/DME, Discharge Planning, Benefits of In-Hospital Mobility, Expected Functional Level, IADLs/Home Management, Home Set-up/Modifications, Lower Extremity Dressing, Positioning, Precautions/Restrictions, Role of Occupational Therapy, Standing Balance to Improve [place] with ADLs/Self-Care, Transfer - Bed to Chair, Transfer - Sit to Stand, Transfer - Car, Transfer - Tub Shower, Upper Extremity Dressing THERAPEUTIC SKILLS USED Activity Dosing, Cues for Sequencing/Proper Technique for Activity, Cuing Verbal, Movement Facilitation, Therapeutic Use of Self, Task Analysis Learning, Teach-Back for Education FUNCTIONAL STATUS Activities of Daily Living Assist Level Additional Information Feeding Set Up Grooming Set Up Bathing Upper Body Set Up Bathing Lower Body Minimal Assistance Dressing Upper Body Set Up Dressing Lower Body Minimal Assistance Toileting Stand By Assistance Mobility Assist Level Additional Information Bed Mobility Sit To Supine: Stand By Assistance, Additional Information with use of sheet to assist R LE Sit to Stand Stand By Assistance Stand to Sit Stand By Assistance Bed to Chair Toilet/Commode Shower Functional Mobility Stand By Assistance Functional Mobility Device: Wheeled Walker GOALS Patient will demonstrate progress with self-care, cognitive and/or coping needs identified to allow safe discharge to home with available support and/or physical assistance. Rehab Potential: Good PLAN OT Frequency: Discontinue Therapy Services Reasons Therapy Services Discontinued: Goals met Treatment Interventions: Education, Self Care/Home Management, Energy Conservation Training, Joint Mobility, Strengthening, Functional Mobility Training, Balance Training SIGNATURE: Jayde Monroe OT/L PATIENT NAME: Carolynn Givens DATE: January 02, 2024 TIME: 3:23 PM [facility] THERAPY NT HNO ID: [id number] Author: GUADALUPE TERESA, PT, DPT Service: Physical Therapy Author Type: Physical Therapist Type: Therapy (PT/OT/Speech/Resp) Filed: 01/02/2024 14:55 Note Text: Physical Therapy Treatment Summary SERVICE DATE: 01/02/2024 SERVICE TIME: 1402 to 1426 ROOM: [place] [address] PT 6 Clicks Score: 19 Total Joint Replacement Discharge Readiness: Cleared from Physical Therapy - Supportive who is able to provided physical assist to patient as needed to enter home and manage within home. DISCHARGE RECOMMENDATIONS Outpatient PT Recommended Discharge Disposition Comments: Appointment set for Friday 01/05. Recommended Discharge Equipment: No equipment needs anticipated ASSESSMENT Response to Therapy Interventions: Pain, Requires Additional Time to Complete Activities, Improved Tolerance for Activity Patient continues to be limited by pain but did demonstrate improved independence and tolerance of functional mobility during second session. Reviewed information/technique for curb step completion with to ensure he can safely assist patient into the house. 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 in room THERAPY DIAGNOSIS Reduced mobility-other, Difficulty walking-musculoskeletal, Abnormalities of gait and mobility-other TREATMENT INTERVENTIONS Therapeutic Activity (55058), Gait Training (26903) Timed Code Treatment (minutes): 24 Skilled Treatment Time (minutes): 24 TRAINING AND EDUCATION PROVIDED Assistive Device Use, Bed Mobility, Benefits of In-Hospital Mobility, Discharge Planning, Equipment, Exercise Program, Expected Functional Level, Gait Pattern, Reduction of Deviations, Handout Issued, Precautions/Restrictions, Role of Physical Therapy, Transfers, Car Transfers, Curb Step Navigation, Anatomy and Impact on Deficits, Edema Management, Falls Prevention, Home Safety, Positioning, Standing Balance THERAPEUTIC SKILLS USED Activity Dosing, Cues for Sequencing/Proper Technique for Activity, Cuing Tactile, Cuing Verbal, Cuing Visual, Facilitation of Joint Range of Motion, Management of Critical Lines, Tubes and/or Drains, Movement Facilitation, Physical Assist, Postural Alignment Correction, Repetitive Task Learning, Teach-Back for Education, Therapeutic Touch/Massage FUNCTIONAL STATUS Bed Mobility Supine To Sit: Minimal Assistance (assist to RLE exiting bed on R side.) Transfers Sit To Stand: Supervision Stand To Sit: Supervision Bed to Chair Supervision Bed To Chair Transfer Type: Stepping Bed To Chair Transfer Equipment: Wheeled Walker extra time needed to complete but pt more confident in the transition Gait Supervision Gait Device: Wheeled Walker General Deviations/Observations: Antalgic gait, Brenda decreased, UE weight bearing on assistive device excessive Gait Distance (feet): 55 Gait Deviations Right Lower Extremity: Weight bearing decreased, Step length decreased, Stance time decreased, Push off during terminal stance decreased, Heel strike during initial stance decreased Stairs Curb Step: Moderate Assistance, Additional Information Device: Wheeled Walker GOALS Patient will demonstrate progress with functional mobility to allow safe discharge to home with available support and/or physical assistance. Rehab Potential: Good Progress Toward Goals: Progressing as expected PLAN PT Frequency: One Additional Visit Treatment Interventions: Education, Joint Mobility, Strengthening, Functional Mobility Training Plan for Next Visit: Gait Training, Curb Step Training, Exercise Instruction/Handout SIGNATURE: Guadalupe Teresa PT, DPT PATIENT NAME: Carolynn Givens DATE: January 02, 2024 TIME: 2:55 PM Normal [facility] THERAPY NT HNO ID: [id number] Author: GUADALUPE TERESA PT, DPT Service: Physical Therapy Author Type: Physical Therapist Type: Therapy (PT/OT/Speech/Resp) Filed: 01/02/2024 10:06 Note Text: Physical Therapy Treatment Summary SERVICE DATE: 01/02/2024 SERVICE TIME: 854 to 942 ROOM: [place] [address] PT 6 Clicks Score: 19 Total Joint Replacement Discharge Readiness: Pending Physical Therapy Clearance DISCHARGE RECOMMENDATIONS Outpatient PT Recommended Discharge Disposition Comments: Appointment set for Friday 01/05. Recommended Discharge Equipment: No equipment needs anticipated ASSESSMENT Response to Therapy Interventions: Pain, Requires Additional Time to Complete Activities, Requires Encouragement to Complete Activities Patient continues to be significantly limited by increased pain in right LE preventing her ability to increase knee flexion ROM and limiting her weight bearing tolerance. She has a fear of increasing pain with activity that results in extra time needed to complete all functional tasks. 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 Agreeable to PT treatment THERAPY DIAGNOSIS Reduced mobility-other, Muscle Weakness (generalized), Difficulty walking-musculoskeletal, Abnormalities of gait and mobility-other, Unsteadiness on feet TREATMENT INTERVENTIONS Gait Training (35014), Therapeutic Activity (86535) Timed Code Treatment (minutes): 48 Skilled Treatment Time (minutes): 48 TRAINING AND EDUCATION PROVIDED Assistive Device Use, Bed Mobility, Benefits of In-Hospital Mobility, Discharge Planning, Equipment, Exercise Program, Expected Functional Level, Gait Pattern, Reduction of Deviations, Handout Issued, Precautions/Restrictions, Role of Physical Therapy, Transfers, Car Transfers, Curb Step Navigation, Anatomy and Impact on Deficits, Edema Management, Falls Prevention, Home Safety, Positioning, Standing Balance THERAPEUTIC SKILLS USED Activity Dosing, Cues for Sequencing/Proper Technique for Activity, Cuing Tactile, Cuing Verbal, Cuing Visual, Facilitation of Joint Range of Motion, Management of Critical Lines, Tubes and/or Drains, Movement Facilitation, Physical Assist, Postural Alignment Correction, Repetitive Task Learning, Teach-Back for Education, Therapeutic Touch/Massage FUNCTIONAL STATUS Bed Mobility Supine To Sit: Minimal Assistance (assist to RLE exiting bed on R side.) Transfers Sit To Stand: Stand By Assistance Stand To Sit: Stand By Assistance Bed to Chair Stand By Assistance, Additional Information Bed To Chair Transfer Type: Stepping Bed To Chair Transfer Equipment: Wheeled Walker extra time needed to complete as pt with high pain levels and fear of pain increasing Gait Stand By Assistance Gait Device: Wheeled Walker General Deviations/Observations: Antalgic gait, Brenda decreased, UE weight bearing on assistive device excessive Gait Distance (feet): 30 Gait Deviations Right Lower Extremity: Weight bearing decreased, Step length decreased, Stance time decreased, Push off during terminal stance decreased, Heel strike during initial stance decreased Stairs Curb Step: Moderate Assistance, Additional Information Device: Wheeled Walker Mod A trunk support when stepping up with left LE due to pt's poor weight bearing tolerance on RLE. 2 trials completed. Pt reports her can assist as needed Exercise Ankle Pumps (number of reps): 15 Quad Sets (number of reps): 10 Glut Sets (number of reps): 10 Heel Slides (number of reps): 5 (pt able to flex R knee only to ~15 degrees) GOALS Patient will demonstrate progress with functional mobility to allow safe discharge to home with available support and/or physical assistance. Rehab Potential: Good Progress Toward Goals: Progressing slower than expected PLAN PT Frequency: One Additional Visit Treatment Interventions: Education, Joint Mobility, Strengthening, Functional Mobility Training Plan for Next Visit: Gait Training, Curb Step Training, Exercise Instruction/Handout SIGNATURE: Guadalupe Teresa PT, DPT PATIENT NAME: Carolynn Givens DATE: January 02, 2024 TIME: 10:06 AM Normal [facility] US LEG VEIN DVT UNL VAS LABo n 01-02-2024 US LEG VEIN DVT UNL VAS LAB Non-Invasive Vascular Laboratory [facility] Lower Extremity Venous Duplex Unilateral - Right Date of service/time: 01/02/2024 10:26:55 AM Name: MRS. CAROLYNN GIVENS Date of : 1960 Age: 63 years Gender: F Clinical Indication Lower extremity swelling. TECHNIQUE -------- A venous duplex ultrasound examination was performed, including grayscale imaging with compression maneuvers and color Doppler and spectral Doppler examination with augmentation maneuvers and response to respiration of the below mentioned veins. FINDINGS -------- RIGHT SIDE Distal external iliac vein Doppler: normal flow. Compression: normal. Common femoral vein Doppler: normal flow. Compression: normal. Femoral vein Doppler: normal flow. Compression: normal. Popliteal vein Doppler: normal flow. Compression: normal. Posterior tibial veins Compression: normal. Peroneal veins Compression: normal. Great saphenous vein Compression: normal. Small saphenous vein Compression: normal. LEFT SIDE Common femoral vein Doppler: normal flow. IMPRESSION RIGHT SIDE - DEEP VEINS Negative for acute deep vein thrombosis. LEFT SIDE - DEEP VEINS Spontaneous and respirophasic flow noted in the common femoral vein. Technologist: Christopher Luo S Ordering physician: MACHO SALAZAR Referring physician: MACHO LAU Interpreting physician: Rizwana Salazar MD, YASMIN Final CC [facility] Image : [id number] Link below for Image Normal [facility] ANES POSTPROC EVALon 024 ANES POSTPROC EVAL HNO ID: [id number] Author: QUINN SALAZAR MD Service: Anesthesiology Author Type: Anesthesiologist Type: Anesthesia Postprocedure Evaluation Filed: 01/01/2024 18:58 Note Text: POST ANESTHESIA EVALUATION NOTE : 1960 Procedure Summary Date: 01/01/24 Room / Location: AV OR06 / AV OR Anesthesia Start: 1306 Anesthesia Stop: 1535 Procedure: ARTHROPLASTY REPLACE JOINT TOTAL KNEE JOÃO/EX STAY (Right: Knee) Diagnosis: Unilateral primary osteoarthritis, right knee (Unilateral primary osteoarthritis, right knee [M17.11]) Surgeons: Jorge L Hatch MD Responsible Provider: Quinn Salazar MD Anesthesia Type: regional, spinal ASA Status: 3 Anesthesia Type: regional, spinal Last Vitals Vitals Value Taken Time BP 132/69 01/01/24 1642 Temp 36.7 ?C (98.1 ?F) 01/01/24 1642 Pulse 68 01/01/24 1642 Resp 16 01/01/24 1642 SpO2 97 % 01/01/24 1642 Post Anesthesia Patient Status Patient Evaluation: PACU. PACU/ICU Patient Condition: stable. Anticipated Disposition: inpatient floor planned admission. Neurological Status: aware and responsive. Pulmonary Status: breathing comfortably on room air Airway Control: returned to baseline unsupported. Cardiovascular Status: stable. Pain Management: clinically adequate - multimodal analgesia pain management approach Postoperative Hydration: acceptable. Intraoperative Events: no significant anesthesia events Post Operative Nausea/Vomiting Status: no significant post operative nausea or vomiting Recommendation: continue current plan of care. Anesthesia Observations No Documentation SIGNATURE: Quinn Salazar MD PATIENT NAME: Carolynn Givens DATE: January 01, 2024 TIME: 6:58 PM CSN: [id number] [facility] ANES PRE-OPon 01-01-2024 ANES PRE-OP HNO ID: [id number] Author: QUINN SALAZAR MD Service: Anesthesiology Author Type: Anesthesiologist Type: Anesthesia Preprocedure Evaluation Filed: 01/01/2024 12:28 Note Text: ANESTHESIOLOGY DAY OF SURGERY NOTE : 1960 Procedure Information Date/Time: 01/01/24 1245 Procedure: ARTHROPLASTY REPLACE JOINT TOTAL KNEE JOÃO/EX STAY (Right: Knee) Location: AV OR06 / AV OR Surgeons: Jorge L Hatch MD Estimated body mass index is 38.11 kg/m? as calculated from the following: Height as of this encounter: 165.1 cm (5' 5 ). Weight as of this encounter: 103.9 kg (229 lb). Most recent hematocrit and potassium results: Hematocrit 47.4 12/11/2023 Potassium 3.5 12/11/2023 Relevant Problems ANESTHESIA (+) YUAN (obstructive sleep apnea) CARDIO (+) Murmur (+) Primary hypertension (+) Stenosis of right carotid artery ENDO (+) Hypothyroidism NEURO-PSYCH (+) Cerebrovascular accident (CVA) due to embolism (HCC) (+) History of CVA (cerebrovascular accident) PULMONARY (+) YUAN (obstructive sleep apnea) I - PHYSICAL EVALUATION AIRWAY Patient intubated: No. Tracheostomy tube not present Mallampati: II. TM distance: >3 FB. Neck ROM: full ROM without neurological symptoms. Mouth opening: adequate. Short neck: no. Thick neck: no DENTAL Dental findings: teeth intact. Additional exam findings: no II - ANESTHESIA PLAN ASA Score: 3 Anesthetic Plan: regional and spinal The patient is not a current smoker. NPO Status: adequate Beta Nabeel Monitoring Plan Monitoring plan: standard ASA. Post Procedure Analgesic Plan Postoperative analgesic plan: multimodal analgesia. Informed Consent Anesthetic risks, benefits, alternatives, personnel and consent discussed: yes. Patient / Responsible Constitution Party agrees to proceed: yes Patient / Surrogate agrees to blood products: Yes Significant changes in the patient condition since the History and Physical, not otherwise documented in primary service progress note: no. Potential Anesthesia issues that may suggest increased risk of complications or contraindication to planned procedure: none. Discussed the possibility of lip / dental damage: yes Vitals Value Taken Time BP 159/92 01/01/24 1110 Pulse Resp 18 01/01/24 1110 Temp 36.6 ?C (97.8 ?F) 01/01/24 1110 SpO2 100 % 01/01/24 1110 Facility-Administered Medications as of 01/01/2024 Medication Dose Route Frequency - [COMPLETED] gabapentin 600 mg cap(s) (NEURONTIN) 600 mg ORAL ONCE - meloxicam 15 mg tab(s) (MOBIC) 15 mg ORAL DAILY - acetaminophen 1,000 mg tab(s) (TYLENOL) 1,000 mg ORAL ONCE - [COMPLETED] tranexamic acid 1,300 mg tab(s) (LYSTEDA) 1,300 mg ORAL ONCE - vancomycin iv piggyback 1.5 g in D5W 300 mL (VANCOCIN) 1.5 g INTRAVENOUS ONCE - NaCl 0.9% iv flush bag 20 mL INTRAVENOUS PRN - [] vancomycin iv piggyback 1.5 g in D5W 300 mL (VANCOCIN) 1.5 g INTRAVENOUS ONCE Outpatient Medications as of 01/01/2024 Medication Sig - acyclovir (ZOVIRAX) 400 mg tablet - baclofen 10 mg tablet - hydroCHLOROthiazide 25 mg tablet 25 mg. - clopidogrel (PLAVIX) 75 mg tablet - diclofenac (VOLTAREN) 1 % topical gel Apply 4 g to affected area. - DULoxetine (CYMBALTA) 30 mg capsule - KLOR-CON M10 10 mEq tablet - levothyroxine (SYNTHROID) 150 mcg tablet Take 150 mcg by mouth daily before breakfast. - bisoprolol-hydrochlorothi azide (ZIAC) 5-6.25 mg per tablet Take 1 tablet by mouth once daily. - atorvastatin (LIPITOR) 80 mg tablet Take 80 mg by mouth once daily. - ALPRAZolam (XANAX) 0.25 mg tablet Take 0.25 mg by mouth at bedtime as needed. - furosemide (LASIX) 40 mg tablet - aspirin, enteric coated (ASPIRIN, ENTERIC COATED) 81 mg EC tablet Take 81 mg by mouth once daily. - semaglutide (OZEMPIC) 0.25 mg or 0.5 mg(2 mg/1.5 mL) pen Inject 0.25 mg subcutaneously one time a week. Injections on Sundays Last injection as 12/08/2023 I have interviewed and examined the patient. I have reviewed the medical record and/or the pre-anesthesia evaluation, pertinent labs, and test results. This contains updated information obtained within 48 hours of Surgery/Procedure. SIGNATURE: Quinn Salazar MD PATIENT NAME: Carolynn Givens DATE: January 01, 2024 TIME: 12:23 PM CSN: [id number] [facility] BRIEF OP NOTon 01-01-2024 BRIEF OP NOT HNO ID: [id number] Author: JORGE L HATCH MD Service: Orthopaedic Surgery Author Type: Physician Type: Brief Op Note Filed: 01/01/2024 14:49 Note Text: TOTAL KNEE ARTHROPLASTY BRIEF OPERATIVE / PROCEDURE NOTE LOG ID: [id number] Surgery/Procedure Date: 01/01/2024 Incision/Procedure Start Time: 1:53 PM Incision Close/Procedure End Time: Surgeon(s)/Proceduralist( s) and Devops Engineer(s): Surgeons and Role: * Jorge L Hatch MD - Primary Physician Devops Engineer: Zulma Welsh PA-C; Macho Salazar PA-C Procedure(s): Procedure(s) (LRB): ARTHROPLASTY REPLACE JOINT TOTAL KNEE JOÃO/EX STAY (Right) Anesthesia: Spinal Peripheral Block Type: Saphenous/Adductor Approach: Median parapatellar Findings: Details are an official op note Estimated Blood Loss: Less than 100 mls Specimens: None Complications: None Closure Technique: Primary Total Joint Arthroplasty (TJA) Surgical Risk Procedure: Not on file Date assessed: Not on file No data to display Implant: * No implants in log * Bearing Surface: Fixed Fixation: Cementless SSI Risk Factors: Obesity, BMI > 35 Constraint: Cruciate Retaining Other: None Pre-Op/Pre-Procedure Diagnosis: Unilateral primary osteoarthritis, right knee [M17.11] Post-Op/Post-Procedure Diagnosis: Unilateral primary osteoarthritis, right knee [M17.11] Weight Bearing Status: Full Weight Bearing SIGNATURE: Jorge L Hatch MD PATIENT NAME: Carolynn Givens DATE: January 01, 2024 TIME: 2:47 PM [facility] OPERATIVE NOon 01-01-2024 OPERATIVE NO HNO ID: [id number] Author: JORGE L HATCH MD Service: Orthopaedic Surgery Author Type: Physician Type: Operative Report Filed: 01/01/2024 14:50 Note Text: KNEE ARTHROPLASTY BRIEF OPERATIVE / PROCEDURE NOTE LOG ID: [id number] Surgery/Procedure Date: 01/01/2024 Incision/Procedure Start Time: 1:53 PM Incision Close/Procedure End Time: Surgeon(s)/Proceduralist( s) and Devops Engineer(s): Surgeons and Role: * Jorge L Hatch MD - Primary Physician Devops Engineer: Zulma Welsh PA-C; Macho Salazar PA-C Procedure(s): Procedure(s) (LRB): ARTHROPLASTY REPLACE JOINT TOTAL KNEE JOÃO/EX STAY (Right) Anesthesia: Spinal Peripheral Block Type: Saphenous/Adductor Approach: Median parapatellar Findings: Details are an official op note Estimated Blood Loss: Less than 100 mls Specimens: None Complications: None Closure Technique: Primary Total Joint Arthroplasty (TJA) Surgical Risk Procedure: Not on file Date assessed: Not on file No data to display The patient was brought to the operating suite, identified and induced and successful spinal anesthesia. Patient's right lower extremity was then prepped and draped in the usual sterile fashion distal to a well-padded tourniquet. After this was done the limb was exsanguinated of blood using gravity, and tourniquet was then inflated to 250 mm hg. patient was then identified through a Timeout including side allergies, etc. and a anterior midline longitudinal incision was made, dissection was carried down through the subcutaneous tissue until the extensor mechanism was then identified, a median parapatellar arthrotomy was performed, the patella was carefully inverted, exposing the following findings: Severe end-stage degenerative arthritis involving from the patellofemoral joint, as well as the medial compartment where she is completely lyra-jw-xinf with erosions into the tibial plateau large medial osteophytes large posterior osteophytes all needed removal Total knee commenced by drilling a hole in the intercondylar notch, and a intramedullary distal cutting guide was inserted, set at 3 degrees of valgus. After approximately 9 mm of bone was resected, the sizing guide was inserted with approximately 3 degrees of external rotation. This was sized to a 3 femur. 4 in 1 cutting block was then used to make the anterior posterior and chamfer cuts. After this was done the anterior cruciate ligament was resected, the posterior cruciate ligament was protected, a medial release was performed and the proximal tibia was carefully subluxed anteriorly using a carefully placed retractor. Proximal tibia was then cut using an extra medullary cutting guide set neutral with an approximately 3 degree posterior slope. This proximal tibia was also sized to a number 3. Once the femoral-tibial joint trial implants were inserted and the knee was balanced using a 9 mm polyethylene insert. The undersurface of the patella was then carefully resected using an oscillating saw and sized to a 32 millimeter. Mold Design Engineer holes were then drilled of the distal femur, the undersurface of the patella, and a V keel slot and 4 pilot teacher holes were then prepared the proximal tibia. The tourniquet was then released, all bleeding points were carefully bovied, and the implants were inserted in the following order: 3 tibial baseplate, 9 millimeter cruciate retaining polyethylene insert, 3 femoral component, 32 millimeter metal backed patella. Once all implants were inserted and found to demonstrate excellent bone to implant contact, the wound was thoroughly irrigated, and carefully closed using a combination of Vicryl sutures and running barbed resolvable suture. The subcutaneous tissue and skin were closed in layers, sterile dressing applied, patient was then aroused from sedation and transferred to the postanesthesia care unit in stable condition to recover from anesthesia. Surgical prep, exposure assistance, positioning and closure assistance was provided by the Physician Devops Engineer Service and necessary for optimum results for surgery. Physician Devops Engineer's were present because there was no qualified residents available for this case today. Implant: * No implants in log * Bearing Surface: Fixed Fixation: Cementless SSI Risk Factors: Obesity, BMI > 35 Constraint: Cruciate Retaining Other: None Pre-Op/Pre-Procedure Diagnosis: Unilateral primary osteoarthritis, right knee [M17.11] Post-Op/Post-Procedure Diagnosis: Unilateral primary osteoarthritis, right knee [M17.11] Weight Bearing Status: Full Weight Bearing SIGNATURE: Jorge L Hatch MD PATIENT NAME: Carolynn Givens DATE: January 01, 2024 TIME: 2:47 PM Normal [facility] THERAPY [facility] 01-01-2024 THERAPY NT HNO ID: [id number] Author: FRANCA LABOY, PT, DPT Service: Physical Therapy Author Type: Physical Therapist Type: Therapy (PT/OT/Speech/Resp) Filed: 01/01/2024 18:15 Note Text: Physical Therapy Evaluation Summary SERVICE DATE: 01/01/2024 SERVICE TIME: 1729 to 1753 ROOM: [place] [address] PT 6 Clicks Score: 18 Total Joint Replacement Discharge Readiness: Pending Physical Therapy Clearance DISCHARGE RECOMMENDATIONS Outpatient PT Recommended Discharge Disposition Comments: Pt plans to have OP out in [place] but needs to get appt set Recommended Discharge Equipment: No equipment needs anticipated ASSESSMENT Response to Therapy Interventions: Good Participation in Activities, Pain Pt with increased pain, not tolerating a lot of WBing on R LE. PRECAUTIONS Total Knee Replacement, Weight Bearing Restrictions Right Lower Extremity Weight Bearing Status: WBAT CURRENT HOSPITAL COURSE s/p R TKA 12/31 ([place]) Relevant Past Medical History: CVA after surgery HOME LIVING Patient Lives With: Spouse Assistance Available: 24-Hour Entry To Home: Stairs, Without Rail (small 4 step) Number Of Stairs Into Home: 1 Number Of Stairs To Bed/Bath: 1st floor bed and bath Tub/Shower Type: tub/shower with 2 grab bars, shower chair Laundry: spouse will A Equipment Owned: Walker- Wheeled, Shower Chair, Grab Bars- Shower, Cane PRIOR FUNCTIONAL LEVEL Within Functional Limits Pt IND ADLs and 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, + 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, 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 SUBJECTIVE Pt in bed My knee is really starting to hurt THERAPY DIAGNOSIS Reduced mobility-other TREATMENT INTERVENTIONS Evaluation, Gait Training (99656) Timed Code Treatment (minutes): 9 Skilled Treatment Time (minutes): 24 TRAINING AND EDUCATION PROVIDED Assistive Device Use, Bed Mobility, Benefits of In-Hospital Mobility, Discharge Planning, Equipment, Exercise Program, Expected Functional Level, Gait Pattern, Reduction of Deviations, Handout Issued, Precautions/Restrictions, Role of Physical Therapy, Transfers THERAPEUTIC SKILLS USED Activity Dosing, Cues for Sequencing/Proper Technique for Activity, Physical Assist, Repetitive Task Learning, Task Analysis Learning FUNCTIONAL STATUS Bed Mobility Supine To Sit: Minimal Assistance (A R LE OOB to R.) Transfers Sit To Stand: Contact Guard Assistance Stand To Sit: Contact Guard Assistance Bed to Chair Gait Contact Guard Assistance Gait Device: Wheeled Walker General Deviations/Observations: Antalgic gait, Brenda decreased, UE weight bearing on assistive device excessive Gait Distance (feet): 25 Gait Deviations Right Lower Extremity: Weight bearing decreased, Step length decreased, Stance time decreased, Push off during terminal stance decreased, Heel strike during initial stance decreased Stairs GOALS Patient will demonstrate progress with functional mobility to allow safe discharge to home with available support and/or physical assistance. Rehab Potential: Good PLAN PT Frequency: One Additional Visit Treatment Interventions: Education, Joint Mobility, Strengthening, Functional Mobility Training SIGNATURE: Franca Laboy, PT, DPT PATIENT NAME: Carolynn Givens DATE: January 01, 2024 TIME: 6:15 PM [facility] echo transthoracicon [facility] echo transthoracic [facility] [place] [address] Echocardiogram Signed Patient: Carolynn Givens MR#: [id number] : 1960 Acct:[id number] Age/Sex: 63 / F ADM Date: 12/20/23 Loc: Room: Type: [facility] Attending Dr: Brooks Calixto DO Ordering Provider: Brooks Calixto DO Date of Service: 12/20/23/ ECH/ECH echo transthoracic: Murmur, Edema Copies to: MD Brooks Hagen DO Carolynn Alcantar AM Patient Location: : 1960 Gender: Female (MM/DD/YYYY) Age: 63 Years Ordering Physician: Brooks Calixto Height: 64.96 in Weight: 220.004 lb Performed By: Liyah Lutz BSA: 2.06 m2 BP: 170 / 90 mmHg HR: 64 bpm Reason For Study: Murmur, Edema + -+ Interpretation Summary Ejection Fraction = 60-65%. The left ventricular size and thickness are normal. The left ventricular wall motion is normal. A variety of Doppler measurements indicate normal left ventricular diastolic function. There is trace mitral regurgitation. There is no comparison study available. Procedure/Quality: A two-dimensional transthoracic echocardiogram with color flow and Doppler was performed. The study was technically good in quality. Left Ventricle: The left ventricular size and thickness are normal. Ejection Fraction = 60-65%. A variety of Doppler measurements indicate normal left ventricular diastolic function. The left ventricular wall motion is normal. Left Atrium: The left atrium appears normal in size. Right Atrium: The right atrium appears normal in size. Right Ventricle: The right ventricle is normal in size and function. Aortic Valve: The aortic valve is normal in structure. No hemodynamically significant valvular aortic stenosis. No aortic regurgitation is present. Mitral Valve: The mitral valve is normal in structure. No significant mitral valve stenosis. There is trace mitral regurgitation. Tricuspid Valve: The tricuspid valve is not well visualized. No tricuspid regurgitation. Pulmonic Valve: The pulmonic valve is not well visualized. Mild pulmonic valvular regurgitation. Arteries: The aortic root is normal size. Pericardium/Pleura: No pericardial effusion seen. There is no pleural effusion. IVC/Hepatic Veins: The inferior vena cava is normal in size, with a normal collapsibility index. MMode/2D Measurements Calculations IVSd (0.7-1.1 cm): 1.03 cm LVIDd (3.7-5.4 cm): 3.2 cm LVPWd (0.7-1.1 cm): 1.02 cm LVIDs (2.3-3.6 cm): 2.31 cm LA dimension (2.3-4.0 cm): 3.6 Ao root diam (2.0-3.2 cm): 2.6 cm cm FS: 28.2 % Ao root area: 5.3 cm2 EDV(Teich): 41.4 ml LVOT diam: 2.40 cm ESV(Teich): 18.3 ml LVOT area: 4.5 cm2 EF(Teich): 55.9 % LAV(MOD-sp2): 40.7 ml LAV(MOD-sp4): 30.6 ml LA A2 area: 16.2 cm2 LA A4 area: 14.0 cm2 LA length (vol): 5.3 cm LA vol: 36.6 ml LA vol index: 17.8 ml/m2 Doppler Measurements Calculations MV E max brandan: 103.0 cm/sec Ao V2 max: 211.1 cm/sec MV A max brandan: 108.3 cm/sec Ao max P.8 mmHg MR max brandan: 370.3 cm/sec Ao mean P.1 mmHg MV V2 VTI: 33.4 cm Ao V2 mean: 150.8 cm/sec MV dec time: 0.15 sec Ao V2 VTI: 53.0 cm MV dec slope: 711.8 cm/sec?? ALEAH(I,D): 2.21 cm2 E/E' lat: 10.1 ALEAH(V,D): 2.05 cm2 E/E' med: 12.8 TV max P.0 mmHg LV V1 max: 95.7 cm/sec TR max brandan: 238.3 cm/sec LV V1 max P.7 mmHg TR max P.7 mmHg LV V1 mean: 68.5 cm/sec RAP systole: 3.0 mmHg LV V1 mean P.13 mmHg LV V1 VTI: 25.9 cm + + + + + --+ + : Electronically : : : : signed by: Edgar : : Lexx : : : : : : on: 12/20/2023, : : 12:56 PM : Transcribed By: CLARK Performed At: 12/20/23 0936 Signed By: Edgar Hallman MD 12/20/23 1256 Normal [facility] BI MAMMOGRAM SCREENING TOMOS YNTHESIS BILATERALon 12-12-2023 BI MAMMOGRAM SCREENING TOMOSYNTHESIS BILATERAL This is a summary report. The complete report is available in the patient's medical record. If you cannot access the medical record, please contact the sending organization for a detailed fax or copy. Examination: BI MAMMOGRAM SCREENING TOMOSYNTHESIS BILATERAL Clinical History: screening Technique: Screening digital mammography study of both breasts was performed with 2-D and 3-D tomosynthesis imaging. Study was compared to the prior exam dated 09/17/2022 Findings: There is no evidence of interval dominant spiculated mass, grouped microcalcifications, or skin thickening which would be suggestive of malignancy. A few benign-appearing calcifications are seen bilaterally. IMPRESSION: Impression: No specific evidence of malignancy seen in either breast. Breast Density: The breasts are almost entirely fatty BiRads: BIRADS 2 - Benign Recommended follow-up: Routine Screening Mamm ELECTRONICALLY SIGNED BY: Michael Daugherty M.D. Normal Not Available Basic metabolic 2000 panelon 12-11-2023 Anion gap [Moles/Vol] 9 mmol/L 8 - 15 mmol/L [facility] Calcium [Mass/Vol] 9.6 mg/dL 8.5 - 10. 2 mg/dL [facility] Chloride [Moles/Vol] 99 mmol/L 98 - 107 mmol/L [facility] CO2 [Moles/Vol] 32 mmol/L High 22 - 30 mmol/L [facility] Creatinine [Mass/Vol] 0.80 mg/dL 0.58 - 0.96 mg/dL [facility] GFR/1.73 sq M.predicted among non-blacks MDRD (S/P/Bld) [Vol rate/Area] 83 mL/min/{1.73_m2} - PINF [facility] Comment on above: Estimated Glomerular Filtration Rate (eGFR) is calculated using the 2020 CKD-EPI creatinine equation. This equation utilizes serum creatinine, sex, and age as parameters. The creatinine assay has traceable calibration to isotope dilution-mass spectrometry. Refer to KDIGO guidelines for clinical interpretation. In patients with unstable renal function, e.g. those with acute kidney injury, the eGFR may not accurately reflect actual GFR. Glucose [Mass/Vol] 80 mg/dL 74 - 99 mg/dL [facility] Comment on above: The [place] Diabete s Association (ADA) provides guidance for cutoff values for fasting glucose and random glucose. The ADA defines fasting as no caloric intake for at least 8 hours. Fasting plasma glucose results between 100 to 125 mg/dL indicate increased risk for diabetes (prediabetes). Fasting plasma glucose results greater than or equal to 126 mg/dL meet the criteria for diagnosis of diabetes. In the absence of unequivocal hyperglycemia, results should be confirmed by repeat testing. In a patient with classic symptoms of hyperglycemia or hyperglycemic crisis, random plasma glucose results greater than or equal to 200 mg/dL meet the criteria for diagnosis of diabetes. Reference: Standards of Medical Care in Diabetes 2016, [place] Diabetes Association. Diabetes Care. 2016.39(Suppl 1). Interpretation and review of laboratory results Abnormal [facility] Potassium [Moles/Vol] 3.5 mmol/L Low 3.7 - 5.1 mmol/L [facility] Sodium [Moles/Vol] 140 mmol/L 136 - 144 mmol/L [facility] Urea nitrogen [Mass/Vol] 13 mg/dL 7 - 21 mg/dL [facility] Anion gap [Moles/Vol] 9 mmol/L Normal 8-15 [facility] Comment on above: Order Comment: Speci men Type: BLOOD SPECIMEN Ordering Facility: [facility] Address: [address] [place] [address] Performed By: #### 2 4321-2 #### [facility] [place] [id number] [address] [place] [address] [place] Calcium [Mass/Vol] 9.6 mg/dL Normal 8.5-10.2 [facility] Comment on above: Order Comment: Malicki men Type: BLOOD SPECIMEN Ordering Facility: [facility] Address: [address] [place] [address] Performed By: #### 2 4321-2 #### [facility] [place] [id number] [address] [place] [address] [place] Chloride [Moles/Vol] 99 mmol/L Normal 98-107 [facility] Comment on above: Order Comment: Malicki men Type: BLOOD SPECIMEN Ordering Facility: [facility] Address: [address] [place] [address] Performed By: #### 2 4321-2 #### [facility] CLIA [id number] [address] [place] [address] [place] CO2 [Moles/Vol] 32 mmol/L High 22-30 [facility] Comment on above: Order Comment: Malicki men Type: BLOOD SPECIMEN Order[facility] Facility: [facility] Address: [address] [place] [address] Performed By: #### 2 4321-2 #### [facility] CLIA [id number] [address] [place] [address] [place] Creatinine [Mass/Vol] 0.80 mg/dL Normal 0.58-0.96 [facility] Comment on above: Order Comment: Iván fernandez Type: BLOOD SPECIMEN Ordering Facility: [facility] Address: [address] [place] [address] Performed By: #### 2 4321-2 #### [facility] CLIA [id number] OF [facility] Creatinine and Glomerular filtration rate.predicted panel (S/P/Bld) 83 mL/min/1.73m??? Normal >=60 [facility] Comment on above: Order Comment: Iván fernandez Type: BLOOD SPECIMEN Ordering Facility: [facility] Address: [address] [place] [address] Result Comment: Viviane mated Glomerular Filtration Rate (eGFR) is calculated using the 2020 CKD-EPI creatinine equation. This equation utilizes serum creatinine, sex, and age as parameters. The creatinine assay has traceable calibration to isotope dilution-mass spectrometry. Refer to KDIGO guidelines for clinical interpretation. In patients with unstable renal function, e.g. those with acute kidney injury, the eGFR may not accurately reflect actual GFR. Performed By: #### 2 4321-2 #### [facility] CLIA [id number] [place] Glucose [Mass/Vol] 80 mg/dL Normal 74-99 [facility] Comment on above: Order Comment: Iván fernandez Type: BLOOD SPECIMEN Order[facility] Facility: [facility] Address: [address] [place] [address] Result Comment: The [place] Diabetes Association (ADA) provides guidance for cutoff values for fasting glucose and random glucose. The ADA defines fasting as no caloric intake for at least 8 hours. Fasting plasma glucose results between 100 to 125 mg/dL indicate increased risk for diabetes (prediabetes). Fasting plasma glucose results greater than or equal to 126 mg/dL meet the criteria for diagnosis of diabetes. In the absence of unequivocal hyperglycemia, results should be confirmed by repeat testing. In a patient with classic symptoms of hyperglycemia or hyperglycemic crisis, random plasma glucose results greater than or equal to 200 mg/dL meet the criteria for diagnosis of diabetes. Reference: Standards of Medical Care in Diabetes 2016, [place] Diabetes Association. Diabetes Care. 2016.39(Suppl 1). Performed By: #### 2 4321-2 #### [facility] CLIA [id number] [address] [place] [address] [place] Potassium [Moles/Vol] 3.5 mmol/L Low 3.7-5.1 [facility] Comment on above: Order Comment: Speci men Type: BLOOD SPECIMEN [facility] Address: [address] [place] [address] Performed By: #### 2 4321-2 #### [facility] CLIA [id number] [place] Sodium [Moles/Vol] 140 mmol/L Normal 136-144 [facility] Comment on above: Order Comment: Speci men Type: BLOOD SPECIMEN Ordering Facility: [facility] Address: [address] [place] [address] Performed By: #### 2 4321-2 #### [facility] CLIA [id number] [address] [place] [address] [place] Urea nitrogen [Mass/Vol] 13 mg/dL Normal 7-21 [facility] Comment on above: Order Comment: Malicki men Type: BLOOD SPECIMEN Order[facility] Facility[facility] Address: [address] [place] [address] Performed By: #### 2 4321-2 #### [facility] CLIA [id number] [address] [place] [id number] [place] CBC panel Auto (Bld)on 12-10 Erythrocyte distribution width (RBC) [Ratio] 14.8 % 11.5 - 15.0 % [facility] Hematocrit (Bld) [Volume fraction] 47.4 % High 36.0 - 46.0 % [facility] Hemoglobin (Bld) [Mass/Vol] 14.8 g/dL 11.5 - 15.5 g/dL [facility] Interpretation and review of laboratory results Abnormal [facility] MCH (RBC) [Entitic mass] 29.6 pg 26.0 - 34.0 pg [facility] MCHC (RBC) [Mass/Vol] 31.2 g/dL 30.5 - 36.0 g/dL [facility] MCV (RBC) [Entitic vol] 94.8 fL 80.0 - 100.0 fL [facility] Nucleated RBC (Bld) [#/Vol] NINF [facility] Platelet mean volume (Bld) [Entitic vol] 9.5 fL 9.0 - 12.7 fL [facility] Platelets (Bld) [#/Vol] 218 10*3/uL [facility] RBC (Bld) [#/Vol] 5.00 10*6/uL 3.90 - 5.2 0 m/uL [facility] WBC (Bld) [#/Vol] 6.19 10*3/uL [facility] Erythrocyte distribution width (RBC) [Ratio] 14.8 % Normal 11.5-15.0 [facility] Comment on above: Order Comment: Speci men Type: BLOOD SPECIMENOrdering Facility: [facility] Address: [address] [place] [address] Performed By: #### 5 8410-2 ####[facility] [id number] [place] [address] [place] Hematocrit (Bld) [Volume fraction] 47.4 % High 36.0-46.0 [facility] Comment on above: Order Comment: Speci men Type: BLOOD SPECIMENOrdering Facility: [facility] Address: [address] [place] [address] Performed By: #### 5 8410-2 ####[facility] [id number] [place] [address] [place] Hemoglobin (Bld) [Mass/Vol] 14.8 g/dL Normal 11.5-15.5 [facility] Comment on above: Order Comment: Speci men Type: BLOOD SPECIMENOrdering Facility: [facility] Address: [address] [place] [address] Performed By: #### 5 8410-2 ####[facility] [id number] [place] [address] [place] MCH (RBC) [Entitic mass] 29.6 pg Normal 26.0-34.0 [facility] Comment on above: Order Comment: Speci men Type: BLOOD SPECIMENOrdering Facility: [facility] Address: [address] [place] [address] Performed By: #### 5 8410-2 ####[facility] [id number] [place] [id number] [place] MCHC (RBC) [Mass/Vol] 31.2 g/dL Normal 30.5-36.0 [facility] Comment on above: Order Comment: Speci men Type: BLOOD SPECIMENOrdering Facility: [facility] Address: [address] [place] [address] Performed By: #### 5 8410-2 ####[facility] [id number] [address] [place] MCV (RBC) [Entitic vol] 94.8 fL Normal 80.0-100.0 [facility] Comment on above: Order Comment: Speci men Type: BLOOD SPECIMENOrdering Facility: [facility] Address: [address] [place] [address] Performed By: #### 5 8410-2 ####[facility] [id number] [address] [place] Nucleated RBC (Bld) [#/Vol] 10*3/uL Normal <0.01 [facility] Comment on above: Order Comment: Speci men Type: BLOOD SPECIMENOrdering Facility: [facility] Address: [address] [place] [address] Performed By: #### 5 8410-2 ####[facility] [id number] [address] [place] Platelet mean volume (Bld) [Entitic vol] 9.5 fL Normal 9.0-12.7 [facility] Comment on above: Order Comment: Speci men Type: BLOOD SPECIMENOrdering Facility: [facility] Address: [address] [place] [address] Performed By: #### 5 8410-2 ####[facility]ORY[facility] [id number] [place] [address] [facility] [place] Platelets (Bld) [#/Vol] 218 10*3/uL Normal 150-400 [facility] Comment on above: Order Comment: Speci men Type: BLOOD SPECIMENOrdering Facility: [facility] Address: [address] [place] [address] Performed By: #### 5 8410-2 ####[facility] [id number] [place] [address] [facility] [place] RBC (Bld) [#/Vol] 5.00 10*6/uL Normal 3.90-5.20 [facility] Comment on above: Order Comment: Speci men Type: BLOOD SPECIMENOrdering Facility: [facility] Address: [address] [place] [address] Performed By: #### 5 8410-2 ####[facility] [id number] [place] [address] [facility] WBC (Bld) [#/Vol] 6.19 10*3/uL Normal 3.70-11.00 [facility] Comment on above: Order Comment: Speci men Type: BLOOD SPECIMENOrdering Facility: [facility] Address: [address] [place] [address] Performed By: #### 5 8410-2 ####[facility] [id number] [place] [address] [facility] CONFIRM BLOOD TYPEon ABO O [facility] Specimen Type: BLOOD SPECIMEN [facility] Address: [address] [place] [address] [facility] CLIA [id number] [address] [place] [address] [facility] CONFIRM BLOOD TYPEon 024 ABO O Normal [facility] Comment on above: Order Comment: Speci men Type: BLOOD SPECIMEN [facility] Address: [address] [place] [address] Performed By: #### C ONABO #### [facility] CLIA [id number] [address] [place] [address] [facility] [place] Rh Nom (Bld) Positive Normal [facility] Comment on above: Order Comment: Speci men Type: BLOOD SPECIMEN [facility] Address: [address] [place] [address] Performed By: #### C ONABO #### [facility] CLIA [id number] [address] [place] [address] [facility] [place] ABO group Nom (Bld) O [facility] HISTORY PHYSICALon HISTORY PHYSICAL HNO ID: [id number] Author: PACHECO VILLELA PA-C Service: ? Author Type: Physician Devops Engineer Type: H&P Filed: 12/23/2023 09:36 Note Text: [facility] HISTORY AND PHYSICAL EXAMINATION SERVICE DATE: 12/11/2023 SERVICE TIME: 2:03 PM PRIMARY CARE PHYSICIAN: Brooks Calixto DO Assessment 1. Pre-op exam Surgery 01/01/2024 - COMPLETE BLOOD COUNT; Future - BASIC METABOLIC PANEL; Future - mupirocin (BACTROBAN) 2 % ointment; two times a day for 5 days. Apply 0.5 inch with cotton swab (Q-tip) to each nostril in the morning and evening for 5 days prior to and including day of surgery. Dispense: 22 g; Refill: 0 - HEMOGLOBIN A1C; Future 2. History of CVA (cerebrovascular accident) Had CVA with trouble finding words 28 days postop from right carotid endarterectomy. Still has trouble finding words at times. On plavix and ASA. Reports plavix given to her through her PCP Dr. Calixto. Fax sent for recommendations 3. Bilateral carotid artery stenosis Has chronic left internal carotid occlusion. Had right carotid endarterectomy in 2016. Has less than 50% stenosis in right carotid on US 10/2022. Follows vascular with last OV 11/18/23 with follow up in one year. 4. Primary hypertension Bp in office 140/84 continue hydrochlorothiazide (Hydrodiuril, Esidrix), bisoprolol-hydrochlorothi azide (Ziac) Last 14 Encounter BP Readings: Date: BP: 12/11/2023 140/84 - BASIC METABOLIC PANEL; Future 5. Hypothyroidism, unspecified type Continue levothyroxine (Synthroid) 6. Obesity, Class II, BMI 35-39.9 Body mass index is 38.15 kg/m?. On Ozempic on Sundays. Advised to hold one week prior to surgery. Last dose 12/22/23 7. Prediabetes A1C to be completed today. On ozempic. - HEMOGLOBIN A1C; Future 8. Factor V Leiden (HCC) Denies any personal history of blood clots in the past. She had a brother had a stroke after a TKA and is worried about this. 9. Murmur Patient was told she has a murmur by Dr. Calixto 07/23/23 and an echocardiogram was ordered. She does not remember being told she had a murmur at the time. Murmur again appreciated on exam today. Encouraged patient to complete echo vijaya. As patient works at [employer] she will schedule and complete it there. 10. YUAN Compliant with cpap Monreal Activity Status Index: METS: Walk indoors, such as around the house (1.75 METs) Do light work around the house, such as dusting or washing dishes (2.70 METs) Take care of self; that is eating, dressing, bathing, using the toilet (2.75 METs) Walk a block or two on level ground (2.75 METs) Do moderate work around the house, such as vacuuming, sweeping floors, or carrying in groceries (3.50 METs) Climb a flight of stairs or walk up a hill (5.50 METs) DASI Score: 18.95 (Swimming stretching 4 days 1 hour) Patient denies any chest pain or undue shortness of breath with the above physical activity. STOP-Bang Score: STOP-Bang Score: 0 (Uses cpap ) ANESTHESIA FINDINGS: Intubation History: No history of difficult intubation Significant Anesthesia Considerations: none Airway History: No history of difficult airway I - PHYSICAL EVALUATION AIRWAY Patient intubated: No. Tracheostomy tube not present Mallampati: III. TM distance: >3 FB. Neck ROM: limited extension. Mouth opening: non-adequate. Short neck: no. Thick neck: no Lip Bite Test: I Microretrognathia/Microna gthia/Recessed Chin: No DENTAL Normal dental observations. Dental findings: teeth intact. II - ANESTHESIA PLAN Beta Nabeel Monitoring Plan Post Procedure Analgesic Plan REASON FOR VISIT: Carolynn Givens is a 63 year old female who is scheduled for Right - ARTHROPLASTY REPLACE JOINT TOTAL KNEE JOÃO/EX STAY at the request of Dr. Jorge L Hatch for consultation. My final recommendation will be communicated back to the requesting physician by way of shared medical record or letter. CHIEF COMPLAINT: knee pain HPI: Patient is a 63 year old female presenting for pre-anesthesia consultation. Patient has been having right knee pain since 2020. This pain has gotten worse over time. She has pain mostly in the front of the knee but sometimes in the back as well. No radiation of pain down the leg. Aggravating factors include bending the knee. Alleviating factors include ice, brace. Denies any previous injuries or surgeries to the right knee in the past. Patient has been recommended for above surgery. Subjective ACTIVE PROBLEM LIST Stenosis of Right Carotid Artery Hypothyroidism Primary Hypertension Obesity, Class II, Bmi 35-39.9 Prediabetes History of Cva (Cerebrovascular Accident) Factor V Leiden (Hcc) Murmur Yuan (Obstructive Sleep Apnea) Covid Immunization Dates Overdue - Covid-19 Vaccine (2023- season) Overdue since 10/20/2023 01/06/2021 Imm Admin: COVID-19 original vaccine, full dose, monovalent (MODERNA) 02 (more content not included)... Normal [facility] HbA1c (Bld)on 12-11-2023 Average glucose Estimated from glycated hemoglobin (Bld) [Mass/Vol] 128 mg/dL Normal [facility] Comment on above: Order Comment: Speci men Type: BLOOD SPECIMEN Ordering Facility: [facility] Address: [address] [place] [address] Result Comment: eAG: (Estimated average glucose) is a calculated value from HgbA1c and is senior account representative of the average blood glucose level in the last 2-3 month period. Performed By: #### 5 5454-3 #### [facility] CLIA [id number] [address] [place] [address] [place] [address] [place] HbA1c (Bld) [Mass fraction] 6.1 % High 4.3-5.6 [facility] Comment on above: Order Comment: Iván fernandez Type: BLOOD SPECIMEN Ordering Facility: [facility] Address: [address] [place] [address] Result Comment: Ignacio ican Diabetes Association guidelines indicate that patients with HgbA1c in the range 5.7-6.4% are at increased risk for development of diabetes, and intervention by lifestyle modification may be beneficial. HgbA1c greater or equal to 6.5% is considered diagnostic of diabetes. Performed By: #### 5 5454-3 #### [facility] CLIA [id number] [address] [place] [id number] [place] Laboratory - Blood bankon Rh Nom (Bld) Positive [facility] No Panel Informationon 12-10 [facility] TYPE AND SCREEN,30 DAYon ABO O Normal [facility] Comment on above: Order Comment: Iván fernandez Type: BLOOD SPECIMEN Ordering Facility: [facility] Address: [address] [place] [address] Performed By: #### T SCR30 #### [id number] [address] [place] [id number] [place] Rh Nom (Bld) Positive Normal [facility] Comment on above: Order Comment: Iván fernandez Type: BLOOD SPECIMEN Ordering Facility: [facility] Address: [address] [place] [address] Performed By: #### T SCR30 #### [facility] [place] [id number] [address] [place] [address] [place] ABO group Nom (Bld) O [facility] Blood group antibody screen Ql Negative [facility] Rh Nom (Bld) Positive [facility] CNOVon 11-18-2023 CNOV Office Visit (VASSAV ) ----- CAROLYNN GIVENS ([id number]) 1960 F Date Time Provider Department 11/18/23 9:45 AM RIZWANA SALAZAR During your visit today, we recorded the following information about you: Rizwana Salazar MD 11/18/2023 3:55 PM Signed [facility] [place] DEPARTMENT OF VASCULAR SURGERY OUTPATIENT VISIT DATE November 18, 2023 OUTPATIENT VISIT TYPE CONSULTATION SERVICE DATE: 11/18/2023 SERVICE TIME: 9:53 AM PRIMARY CARE PHYSICIAN: Dr Bob Calixto ([facility]) REFERRING PROVIDER: Self Consult requested for an opinion regarding the evaluation and treatment of the above. My final impression and recommendations will be communicated back to the requesting physician by way of the shared medical record or letter via US mail. CHIEF COMPLAINT: Carotid stenosis HISTORY OF PRESENT ILLNESS: Vascular consultation at the request of . A copy of this consultation note will be provided to the requesting physician by way of shared Medical record or letter to requesting physician via US mail. Ms. Givens is a 63 year old female who is seen today for carotid disease. She is s/p R CEA several years ago. She has chronic L ICA occlusion. She has B knee arthritis and needs B knee replacements by her account. She has no TIA, amaurosis or stroke symptoms. She is a never smoker. No past medical history on file. No past surgical history on file. SOCIAL HISTORY: Social History Tobacco Use Smoking status: Never Smokeless tobacco: Never No family history on file. MEDICATIONS: aspirin, enteric coated (ASPIRIN, ENTERIC COATED) 81 mg EC tablet Take 81 mg by mouth once daily. levothyroxine (SYNTHROID) 150 mcg tablet Take 150 mcg by mouth daily before breakfast. bisoprolol-hydrochlorothi azide (ZIAC) 5-6.25 mg per tablet Take 1 tablet by mouth once daily. atorvastatin (LIPITOR) 80 mg tablet Take 80 mg by mouth once daily. semaglutide (OZEMPIC) 0.25 mg or 0.5 mg(2 mg/1.5 mL) pen Inject 0.25 mg subcutaneously one time a week. metFORMIN (GLUCOPHAGE) 500 mg tablet Take 500 mg by mouth twice daily with meals. (Patient not taking: Reported on 11/18/2023) ALPRAZolam (XANAX) 0.25 mg tablet Take 0.25 mg by mouth at bedtime as needed. aspirin, enteric coated (ASPIRIN, ENTERIC COATED) 325 mg EC tablet Take 325 mg by mouth once daily. (Patient not taking: Reported on 11/18/2023) ALLERGIES: ALLERGIES Allergen Reactions Penicillins Anaphylaxis Sulfa (Sulfonamide * Hives REVIEW OF SYSTEM: Constitutional: No weight loss, malaise or fevers. HEENT: Negative for frequent or significant headaches Respiratory: Negative for cough, wheezing, or shortness of breath Cardiovascular: Negative for chest pain, leg swelling or palpitations Gatrointestinal: Negative for abdominal discomfort, blood in stools or black stools or change in bowel habits Genitourinary: No history of dysuria, frequency, or incontinence Musculoskeletal: Negative for joint pain or swelling, back pain or muscle pain Endocrine: Negative for cold or heat intolerance, polyuria, polydipsia and goiter Hematology/Lymphatic: Negative for prolonged bleeding, bruising easily or swollen nodes Neurologic: No history or headaches, syncope, paralysis, seizures or tremors Integumentary: Negative for lesions, rash, and itching. PHYSICAL EXAM: VITALS: There were no vitals taken for this visit. General: Alert and oriented, No acute distress, Obese Integumentary: Normal color, no rash, no lesions. HEENT: EOM, pupils equal, round and reactive., No carotid bruits Cardiovascular: Pulse regular. Extremities: No edema. Neurological: Normal cognition and motor skills. Gait normal. No weakness or sensory deficit. Fluent speech. Vascular: Normal pedal pulses B. Diagnostic tests reviewed for today's visit: US CAROTID BILATERAL Order: [id number] [facility] [address] [place] [address] Vascular Lab Report [facility] US CAROTID ARTERY DUPLEX BILATERAL Patient Name: CAROLYNN GIVENS Reading Physician: [id number] Eddie Marie MD Study Date: 09/25/2023 Ordering Provider: [id number] JACK BARBOSA MRN/PID: [id number] Fellow: Technologist: Carolynn ANDRADET, [facility] Date of /Age: 405/25/1960 / 63 years Technologist 2: Gender: F Admission Status: Outpatient Location Performed: [facility] Diagnosis/ICD: Occlusion and stenosis of bilateral carotid arteries-I65.23 Indication: Carotid Occlusion/Stenosis w/o infarct CPT Codes: 68796 Cerebrovascular Carotid Duplex scan complete Pertinent History: Carotid surgery. RIGHT CEA. CONCLUSIONS: Right Carotid: Findings are consistent with less than 50% stenosis of the right proximal internal carotid artery. Laminar flow seen by color (more content not included)... Normal [facility] No Panel Informationon 10-23 Razia Cruz MA 024 7:33 AM L Inj/Asp: L knee on 10/24/2023 8:25 AM Indications: pain Details: 22 G needle Medications: 1 mL betamethasone acetate-betamethasone sodium phosphate 6 (3-3) MG/ML [facility] No Panel Informationon 10-21 Tracey Valenzuela DO 10/22/2023 2:35 PM L Inj/Asp: R knee on 10/22/2023 1:02 PM Indications: pain Details: 21 G needle, anterolateral approach Medications: 40 mg methylPREDNISolone acetate 40 MG/ML Outcome: tolerated well, no immediate complications E UTILIZING ASEPTIC TECHNIQUE PT GIVEN INJECTION IN RIGHT KNEE, NEUROVASC INTACT S/P INJ, TOLERATED WELL Procedure, treatment alternatives, risks and benefits explained, specific risks discussed. Consent was given by the patient. [facility] XR Knee - right 1 or 2 Views on 10-22-2023 Imaging Result: X-rays AP weight-bearing bilateral knees and lateral of the right knee demonstrate medial compartment collapse with [id number]-jz-psnh and subchondral sclerosis and varus alignment bilateral knees. No fractures. Impression: Advanced osteoarthritis bilateral knees Willis Valenzuela D.O. [facility] Radiology Study observation (narrative) [facility] US CAROTID ARTERY DUPLE X BILATERALon 09-25-2023 [facility] US CAROTID ARTERY DUPLEX BILATERAL [facility] [address] [facility] [place] [address] Vascular Lab Report [facility] US CAROTID ARTERY DUPLEX BILATERAL Patient Name: CAROLYNN GIVENS Reading Physician: [id number] Eddie Marie MD Study Date: 09/25/2023 Ordering Provider: [id number] JACK BARBOSA MRN/PID: [id number] Fellow: Technologist: Carolynn Olvera RVLena, RDMS Date of /Age: 405/25/1960 / 63 years Technologist 2: Gender: F Admission Status: Outpatient Location Performed: [facility] Diagnosis/ICD: Occlusion and stenosis of bilateral carotid arteries-I65.23 Indication: Carotid Occlusion/Stenosis w/o infarct CPT Codes: 51364 Cerebrovascular Carotid Duplex scan complete Pertinent History: [...] Proximal 140 cm/s Right ICA/CCA Ratio 2.1 [id number] Eddie Marie MD Final [facility] Refillon 08-10-2023 Refill [id number] Carolynn Givens 1960 F Date Provider Department Center 08/10/2023 [facility] [place] Family History Problem Relation Age of Onset Colon cancer Mother Diabetic kidney disease Father Factor V Leiden deficiency Other Comments: siblings and grandchildren Family Status - Relation Status Age at Mother Father Other Reason for Visit and Comments: Med Change Request [411] [facility] 36on 07-19-2023 36 Discussed with clement florez [...] different pain management provider. Referred her to [facility] management. Provided phone number and advised [...] surgery. Verbalizes understanding and is in agreement. [facility] Erroneous Encounteron 2023 Erroneous Encounter [id number] Elda Givens 1960 Date Provider Department Center 07/19/2023 [facility] [place] Family History Problem Relation Age of Onset Colon cancer Mother Diabetic kidney disease Father Factor V Leiden deficiency Other Comments: siblings and grandchildren Family Status - Relation Status Age at Mother Father Other Reason for Visit and Comments: Error (VOID this visit) [77] Normal [facility] Telephoneon 07-19-2023 Telephone [id number] Elda Givens 1960 F Date Provider Department Center 07/19/2023 148-[facility]ONV[facility]Y [facility] [place] Family History Problem Relation Age of Onset Colon cancer Mother Diabetic kidney disease Father Factor V Leiden deficiency Other Comments: siblings and grandchildren Family Status - Relation Status Age at Mother Father Other Normal [facility] Consulton 07-18-2023 Consult [id number] Elda Givens 1960 F Date Provider Department Center 07/18/2023 148-NICK [facility] SURG [place] Family History Problem Relation Age of Onset Colon cancer Mother Diabetic kidney disease Father Factor V Leiden deficiency Other Comments: siblings and grandchildren Family Status - Relation Status Age at Mother Father Other Level of Service:78462 MO OFFICE/OUTPATIENT NEW MODERATE MDM 45 MINUTES Reason for Visit and Comments: Consult [484] - lumbosacral spondylosis without myelopathy-will bring disk Normal [facility] MR LUMBAR SPINE WO CONTRASTo n 07-12-2023 [...] spine as detailed. ELECTRONICALLY SIGNED BY: Bam Li DO Normal Not Available Office Visit (Vascular Surge )on 10-19-2022 Follow-up visit Diagnoses/Problems Assessed Stenosis of right carotid artery without infarction (433.10) (I65.21) Carotid occlusion, left (433.10) (I65.22) Patient Discussion/Summary By signing my name below, I, Ely Johnson, attest that this documentation has been prepared under the direction and in the presence of Dr. Jack Barbosa. All medical record entries made by [...] At Carpal Tunnel History of Thyroid Surgery Wj-Thyroidectomy Family History Father Family history of Abdominal [...] MG Oral TabletTAKE 1 TABLET AT BEDTIME. Bisoprolol-hydroCHLOROthi azide 2.5-6.25 MG Oral TabletTAKE 1 TABLET DAILY DIRECTED. Cinnamon TABS Clopidogrel Bisulfate 75 MG Oral TabletTAKE 1 TABLET BY MOUTH EVERY DAY Co Q 10 CAPS hydroCHLOROthiazide 25 MG Oral TabletTake 1 tablet daily Lyrica 150 MG Oral CapsuleTAKE 1 CAPSULE TWICE DAILY. metFORMIN HCl - 500 MG Oral TabletTAKE 1 TABLET DAILY DIRECTED. Multivital TABS Norman 3 CAPS Synthroid 125 MCG Oral TabletTAKE 1 TABLET DAILY DIRECTED. Vitals Vital Signs Recorded: 19Oct2022 10:50AM Heart Rate78 Ubrntasq735 Toqkbqxhu54 Height5 ft 4 in Xavwfm767 lb BMI Ctnlatdfho79.14 kg/m2 BSA Calculated2.07 Tobacco Useb) No Falls Screening (Age 18+)a) No falls within the last year O2 Aiwerqxtsl72 Physical Exam Constitutional - No acute distress, well appearing and well nourished. Psychiatric - Orientation to person, place, and time. Appropriate mood and affect Neurologic - Cranial nerves intact, motor strength was normal, sensation (more content not included)... Normal [facility] Tobacco Screening.on 023 Fall risk assessment a) No falls within the last year [facility] [facility] Work Phone: Tobacco use status CP b) No [facility] Work Phone: Blood Pressure Cuff Sizeon 0 07-28-2021 Fall risk assessment a) No falls within the last year [facility] Work Phone: Tobacco use status CP b) No [facility] Work Phone: Blood Pressure Cuff Size Adult [facility] Work Phone: Screening Mammogram, [facility] 07-19-2021 Screening Mammogram, Bilateral EXAMINATION: Screening Mammogram [...] VERY IMPORTANT TO YOUR HEALTH. THE CURRENT [employer] GUIDELINES RECOMMEND ANNUAL MAMMOGRAPHY BEGINNING AT AGE 40. THIS FACILITY UTILIZES A REMINDER SYSTEM TO ENSURE ALL PATIENTS RECEIVE A REMINDER NOTIFICATION AT THE APPROPRIATE TIME BASED ON THE RECOMMENDATIONS OF THIS EXAM. 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 ACCREDITED BY THE [facility] AND FDA. Report reported and signed by Blanche Marion on 07/24/2021 1115 Normal [facility] [employer] VASC LAB Carotid Artery Dupl ex Ultrasounon 07-14-2021 VAS LAB Carotid Artery Duplex Ultrasoun [facility] [address] [facility] [place] [address] Vascular Lab Report Carotid Artery Duplex Ultrasound Patient Name: CAROLYNN GIVENS Reading Physician: [id number] Barbosa MD Study Date: 07/14/2021 Referring Physician: Rima BARBOSA MRN/PID: [id number] PCP: Accession/Order#: [id number] CC Report to: Date of : 1960 Technologist: Carolynn Olvera RDPA, T Gender: F Technologist 2: Admission Status: Outpatient Location Performed: [facility] Diagnosis/ICD: I65.22-Occlusion and stenosis of left carotid artery Procedure/CPT: 22431 Cerebrovascular Carotid Duplex scan complete-52822 Pertinent History: HTN, CAD and Carotid surgery. [...] cm/s Right Left ICA/CCA Ratio 1.5 0.9 00164 Jack Barbosa MD Final Normal [facility] XR Spine Lumbar 4+ Views*on 06-26-2021 XR [...] by Elvis Cochran on 06/26/2021 1617 Normal [facility] Specialist CAROTID DUPLEX SCAN ()on CAROTID DUPLEX SCAN () CAROLYNN GIVENS [id number] 1960 12/11/2017 57y [id number] NaN [id number] NaN F op Outpatient CARDIOVASCULAR LAB Referring: Rizwana Salazar J. Reading: Rizwana Salazar MD, RPVI, FACS RZ Procedure Info: 73109 - Duplex scan of extracranial arteries; complete [...] vertebral artery was patent with antegrade flow. [facility] CAROLYNN GIVENS [id number] [address] [place] [address] [id number] 60 Rizwana Salazar MD CAROTID DUPLEX SCAN There was [...] ECA P 18.8 cm/sec Vertebral 22.8 cm/sec Rizwana Salazar MD, RP, FACS12/11/2017 14:13:45 [facility] CAROLYNN GIVENS [id number] [address] [place] [address] [id number] 60 Rizwana Salazar MD CAROTID DUPLEX SCAN Normal [facility] CAROTID DUPLEX SCAN (HL)on 0 05-29-2017 CAROTID DUPLEX SCAN (HL) CAROLYNN GIVENS [id number] 1960 05/29/2017 57y [id number] NaN F Outpatient CARDIOVASCULAR LAB Referring: Rizwana Salazar J. Reading: Rizwana Salazar MD, RPVI, FACS Procedure Info: 33118 - Duplex scan of extracranial arteries; complete [...] external carotid artery was patent, within normal [facility] CAROLYNN GIVENS [id number] [place] [address] [id number] 60 Rizwana Salazar MD CAROTID DUPLEX SCAN limits. The [...] ECA P 24.4 cm/sec Vertebral 21.1 cm/sec Rizwana Salazar MD, RPVI, FACS05/29/2017 15:11:15 [facility] CAROLYNN GIVENS [id number] [address] [place] [address] [id number] 60 Rizwana Salazar MD CAROTID DUPLEX SCAN Normal [facility] Vital Signs Date Time Vital Sign Value Performing Clinician Facility 12-11-2023 13:43-0400 Body height 165.1 cm Pacc 1 Other Phone: [facility] 12-11-2023 13:43-0400 Body mass index (BMI) [Ratio] 38.15 kg/m2 Pacc 1 Other Phone: [facility] 12-11-2023 13:43-0400 Body temperature 97.3 [degF] Pacc 1 Other Phone: [facility] 12-11-2023 13:43-0400 Body weight 104 kg Pacc 1 Other Phone: [facility] 12-11-2023 13:43-0400 Diastolic blood pressure 84 mm[Hg] Pacc 1 Other Phone: [facility] 12-11-2023 13:43-0400 Heart rate 77 /min Pacc 1 Other Phone: [facility] 12-11-2023 13:43-0400 Respiratory rate 18 /min Pacc 1 Other Phone: [facility] 12-11-2023 13:43-0400 SaO2% (BldA) [Mass fraction] 97 % Pacc 1 Other Phone: [facility] 12-11-2023 13:43-0400 Systolic blood pressure 140 mm[Hg] Pacc 1 Other Phone: [facility] 11-13-2023 11:54-0400 Body height 165.1 cm Brooks Esperance DO Work Phone: [facility] 11-13-2023 11:54-0400 Body mass index (BMI) [Ratio] 33.28 kg/m2 Brooks Esperance DO Work Phone: [facility] 11-13-2023 11:54-0400 Body temperature 96.6 [degF] Brooks Esperance DO Work Phone: [facility] 11-13-2023 11:54-0400 Body weight 90.72 kg Brooks Esperance DO Work Phone: [facility] 11-13-2023 11:54-0400 Diastolic blood pressure 70 mm[Hg] Brooks Esperance DO Work Phone: [facility] 11-13-2023 11:54-0400 Heart rate 71 /min Brooks Esperance DO Work Phone: [facility] 11-13-2023 11:54-0400 SaO2% (BldA) [Mass fraction] 96 % Brooks Esperance DO Work Phone: [facility] 11-13-2023 11:54-0400 Systolic blood pressure 126 mm[Hg] Brooks Calixto DO Work Phone: [facility] 10-24-2023 07:48-0400 Body height 165.1 cm Montana Pocos DO Work Phone: [facility] 10-24-2023 07:48-0400 Body mass index (BMI) [Ratio] 33.28 kg/m2 Montana Pocos DO Work Phone: [facility] 10-24-2023 07:48-0400 Body weight 90.72 kg Montana Pocos DO Work Phone: [facility] 10-19-2022 10:50-0400 Body height 162.56 cm Dory Wells Work Phone: [facility] Work Phone: 10-19-2022 10:50-0400 Body mass index (BMI) [Ratio] 39.14 kg/m2 Dory Grande Daniellechristie Work Phone: [facility] Work Phone: 10-19-2022 10:50-0400 Body surface area Derived from formula 2.07 m2 Dory Wells Work Phone: [facility]Hjqswypyyf[facility]Xeivype [facility] Work Phone: 10-19-2022 10:50-0400 Body weight 103.42 kg Dory Wells Work Phone: EO-Vnvtlkhtxq-Xselurz e [facility] Work Phone: 10-19-2022 10:50-0400 Diastolic blood pressure 80 mm[Hg] Dory Grande Daniellechristie Work Phone: DG[facility]Wnlrkwxdci-Jerrlzm [facility] [address] Work Phone: 10-19-2022 10:50-0400 Heart rate 78 /min Dory Grande Daniellechristie Work Phone: [facility]Ezqvgsqwkx-Nenxvdm [facility] [address] Work Phone: 10-19-2022 10:50-0400 SaO2% (BldA) [Mass fraction] 96 % Dory Wells Work Phone: [employer] [facility] [address] Work Phone: 10-19-2022 10:50-0400 Systolic blood pressure 132 mm[Hg] Dory Wells Work Phone: [facility]Bgyrjgsayy-Uvplrqo [facility] Work Phone: 05-14-2022 13:00-0400 Diastolic blood pressure 70 mm[Hg] Jatin Saldana Other [employer] Other 05-14-2022 13:00-0400 SaO2% (BldA) [Mass fraction] 98 % Jatin Saldana Other [employer] Other 05-14-2022 13:00-0400 Systolic blood pressure 120 mm[Hg] Jatin Saldana Other [employer] Other 05-09-2022 14:30-0400 Body weight 102.06 kg Iza Blades Other [employer] Other 05-09-2022 14:30-0400 Diastolic blood pressure 100 mm[Hg] Iza Blades Other [employer] Other 05-09-2022 14:30-0400 Systolic blood pressure 140 mm[Hg] Iza Blades Other [employer] Other 04-24-2022 09:15-0500 Diastolic blood pressure 84 mm[Hg] Jatin Saldana Other [employer] Other 04-24-2022 09:15-0500 SaO2% (BldA) [Mass fraction] 98 % Jatin Saldana Other [employer] Other 04-24-2022 09:15-0500 Systolic blood pressure 130 mm[Hg] Jatin Saldana Other [employer] Other 03-26-2022 12:45-0500 Diastolic blood pressure 70 mm[Hg] Jatin Saldana Other [employer] Other 03-26-2022 12:45-0500 SaO2% (BldA) [Mass fraction] 99 % Jatin Saldana Other [employer] Other 03-26-2022 12:45-0500 Systolic blood pressure 118 mm[Hg] Jatin Saldana Other [employer] Other 03-07-2022 16:00-0500 Body weight 102.6 kg Jatin Saldana Other [employer] Other 03-07-2022 16:00-0500 Diastolic blood pressure 84 mm[Hg] Jatin Saldana Other [employer] Other 03-07-2022 16:00-0500 SaO2% (BldA) [Mass fraction] 95 % Jatin Saldana Other [employer] Other 03-07-2022 16:00-0500 Systolic blood pressure 130 mm[Hg] Jatin Saldana Other [employer] Other 07-28-2021 11:14-0400 Body height 162.56 cm Dory Wells Work Phone: [place] [address] Work Phone: 07-28-2021 11:14-0400 Body mass index (BMI) [Ratio] 35.02 kg/m2 Dory Wells Work Phone: TD-Vlwhhbkxpa-Wxduydv e 320 Work Phone: 07-28-2021 11:14-0400 Body surface area Derived from formula 1.97 m2 Dory Wells Work Phone: PT-Kzibksduhb-Izamnwu e 320 Work Phone: 07-28-2021 11:14-0400 Body weight 92.53 kg Dory Wells Work Phone: RI-Jxklxgkzch-Cllyctr e 320 Work Phone: 07-28-2021 11:14-0400 Diastolic blood pressure 74 mm[Hg] Dory Wells Work Phone: MT-Gdqfpchohk-Dsccnup e 320 Work Phone: 07-28-2021 11:14-0400 Heart rate 82 /min Dory Wells Work Phone: PD-Eveidmzpjy-Lvpeqoz e 320 Work Phone: 07-28-2021 11:14-0400 SaO2% (BldA) [Mass fraction] 95 % Dory Wells Work Phone: RH-Pgzqqjikep-Cxhsefw e 320 Work Phone: 07-28-2021 11:14-0400 Systolic blood pressure 150 mm[Hg] Dory Wells Work Phone: WM-Xfaaelvekx-Rxvmcmo e 320 Work Phone: 06-22-2020 13:49-0400 Body height 160.02 cm Dory Wells Work Phone: [facility] Work Phone: 06-22-2020 13:49-0400 Body mass index (BMI) [Ratio] 38.62 kg/m2 Dory Wells Work Phone: [employer] [facility] Work Phone: 06-22-2020 13:49-0400 Body surface area Derived from formula 2.01 m2 Dory Wells Work Phone: [employer] [facility] Work Phone: 06-22-2020 13:49-0400 Body weight 98.88 kg Dory Wells Work Phone: [employer] [facility] Work Phone: 06-22-2020 13:49-0400 Diastolic blood pressure 82 mm[Hg] Dory Wells Work Phone: [employer] [facility] Work Phone: 06-22-2020 13:49-0400 Heart rate 65 /min Dory Wells Work Phone: [employer] [facility] Work Phone: 06-22-2020 13:49-0400 SaO2% (BldA) [Mass fraction] 98 % Dory Wells Work Phone: [address] [employer] [facility] Work Phone: 06-22-2020 13:49-0400 Systolic blood pressure 132 mm[Hg] Dory Wells Work Phone: [facility] [employer] [facility] Work Phone: Encounters Encounter Date Encounter Type Care Provider Facility Start: 03-27-2024 End: 03-27-2024 Refill Brooks L Esperance DO Work Phone: [facility] Comment on above: Psychophysiological insomnia Start: 03-21-2024 End: 03-23-2024 Refill Brooks L Esperance DO Work Phone: [facility] Comment on above: Other specified hypo thyroidism (CMS/HCC) Start: 03-20-2024 End: 03-20-2024 Bamboo flowsheet Jimbo D Gundlach PT Work Phone: [facility] PT Start: 03-20-2024 End: 03-20-2024 Bamboo flowsheet Jimbo D Gundlach PT Work Phone: [facility] Start: 03-20-2024 End: 03-20-2024 ambulatory Jimbo D Gundlach PT Work Phone: [facility] PT Comment on above: Acute pain of right knee (Primary Dx); S/P total knee arthroplasty, right Start: 03-02-2024 End: 03-02-2024 Bamboo flowsheet Jimbo D Gundlach PT Work Phone: [facility] PT Start: 03-02-2024 End: 03-02-2024 Bamboo flowsheet Jimbo D Gundlach PT Work Phone: [facility] PT Start: 03-02-2024 End: 03-02-2024 ambulatory Jimbo D Gundlach PT Work Phone: [facility] PT Comment on above: Acute pain of right knee (Primary Dx); S/P total knee arthroplasty, right Knee pain, unspecifi ed chronicity, unspecified laterality (Primary Dx) Start: 02-28-2024 End: 02-28-2024 Bamboo flowsheet Jimbo D Gundlach PT Work Phone: [facility] PT Start: 02-28-2024 End: 02-28-2024 Bamboo flowsheet Jimbo D Gundlach PT Work Phone: [facility] PT Start: 02-28-2024 End: 02-28-2024 ambulatory Jimbo D Gundlach PT Work Phone: [facility] PT Comment on above: Acute pain of right knee (Primary Dx); S/P total knee arthroplasty, right Start: 02-26-2024 End: 02-26-2024 Bamboo flowsheet Jimbo D Gundlach PT Work Phone: [facility] PT Start: 02-26-2024 End: 02-26-2024 Bamboo flowsheet Jimbo Phoenix Gundlach PT Work Phone: [facility] PT Start: 02-26-2024 End: 02-26-2024 ambulatory Jimbo Zapatadlach PT Work Phone: [facility] PT Comment on above: Acute pain of right knee (Primary Dx); S/P total knee arthroplasty, right Start: 02-25-2024 End: 02-25-2024 Refparker Rosen PA Work Phone: [facility] FM 230 Comment on above: Mixed hyperlipidemia (CMS/HCC); Neuralgia and neuritis, unspecified Chronic pain syndrom e; Psychophysiological insomnia Start: 02-21-2024 End: 02-21-2024 Bamboo flowsheet Jimbo Phoenix Gundlach PT Work Phone: [facility] Start: 02-21-2024 End: 02-21-2024 Bamboo flowsheet Jimbo Lizett Gundlach PT Work Phone: [facility] PT Start: 02-21-2024 End: 02-21-2024 ambulatory Jimbo Islasach PT Work Phone: [facility] PT Comment on above: Acute pain of right knee (Primary Dx); S/P total knee arthroplasty, right Start: 02-18-2024 End: 02-18-2024 Bamboo flowsheet Jimbo Phoenix Gundlach PT Work Phone: [facility] Start: 02-18-2024 End: 02-18-2024 Bamboo flowsheet Jimbo D Gundlach PT Work Phone: [facility] Start: 02-18-2024 End: 02-18-2024 ambulatory Jimbo Lizett Zapatadlach PT Work Phone: [facility] PT Comment on above: Acute pain of right knee (Primary Dx); S/P total knee arthroplasty, right Start: 02-17-2024 End: 02-17-2024 Bamboo flowsheet Jimbo D Gundlach PT Work Phone: [facility] Start: 02-17-2024 End: 02-17-2024 Bamboo flowsheet Jimbo D Gundlach PT Work Phone: [facility] Start: 02-17-2024 End: 02-17-2024 ambulatory Jimbo D Gundlach PT Work Phone: [facility] PT Comment on above: Acute pain of right knee (Primary Dx); S/P total knee arthroplasty, right Start: 02-14-2024 End: 02-14-2024 Bamboo flowsheet Jazzy Depoy [employer] Work Phone: [facility] Start: 02-14-2024 End: 02-14-2024 Bamboo flowsheet Jazzy Depoy [employer] Work Phone: [facility] Start: 02-14-2024 End: 02-14-2024 ambulatory Jazzy Depoy [employer] Work Phone: [facility] PT Comment on above: Acute pain of right knee (Primary Dx); S/P total knee arthroplasty, right Start: 02-10-2024 End: 02-10-2024 Bamboo flowsheet Jimbo D Gundlach PT Work Phone: [facility] Start: 02-10-2024 End: 02-10-2024 Bamboo flowsheet Jimbo D Gundlach PT Work Phone: [facility] Start: 02-10-2024 End: 02-10-2024 ambulatory Jimbo D Gundlach PT Work Phone: [facility] PT Comment on above: Acute pain of right knee (Primary Dx); S/P total knee arthroplasty, right Start: 02-07-2024 End: 02-07-2024 Bamboo flowsheet Jimbo D Gundlach PT Work Phone: [facility] Start: 02-07-2024 End: 02-07-2024 Bamboo flowsheet Jimbo D Gundlach PT Work Phone: [facility] Start: 02-07-2024 End: 02-07-2024 ambulatory Jimbo Rodriguez PT Work Phone: [facility] PT Comment on above: Acute pain of right knee (Primary Dx); S/P total knee arthroplasty, right Start: 02-04-2024 End: 02-04-2024 Bamboo flowsheet Jimbo Rodriguez PT Work Phone: [facility] Start: 02-04-2024 End: 02-04-2024 Bamboo flowsheet Jimbo Rodriguez PT Work Phone: [facility] Start: 02-04-2024 End: 02-04-2024 ambulatory Jimbo Lizett Rodriguez PT Work Phone: [facility] PT Comment on above: Acute pain of right knee (Primary Dx); S/P total knee arthroplasty, right Start: 02-03-2024 End: 02-03-2024 Bamboo flowsheet Misa Moe MD Work Phone: [facility] Start: 02-03-2024 End: 02-03-2024 Bamboo flowsuna Moe MD Work Phone: [facility] Start: 02-03-2024 End: 02-03-2024 Office outpatient visit 15 minutes Misa Moe MD Work Phone: [facility] Comment on above: Melanocytic nevus of trunk (Primary Dx); Lentigines; Seborrheic keratosis; History of nevus excision; Neoplasm of unspecified behavior of bone, soft tissue, and skin Start: 02-03-2024 End: 02-03-2024 ambulatory MISA MOE Not Available Start: 01-31-2024 End: 01-31-2024 Bamboo flowsheet Jimbo Rodriguez PT Work Phone: [facility] Start: 01-31-2024 End: 01-31-2024 Bamboo flowsheet Jimbo D Gundlach PT Work Phone: [facility] Start: 01-31-2024 End: 01-31-2024 ambulatory Jimbo Zapatadlach PT Work Phone: [facility] PT Comment on above: Acute pain of right knee (Primary Dx); S/P total knee arthroplasty, right Start: 01-28-2024 End: 01-28-2024 Bamboo flowsheet Jimbo Zapatadlach PT Work Phone: [facility] Start: 01-28-2024 End: 01-28-2024 Bamboo flowsheet Jimbo Phoenix Gundlach PT Work Phone: [facility] Start: 01-28-2024 End: 01-28-2024 ambulatory Jimbo Zapatadlach PT Work Phone: [facility] PT Comment on above: Acute pain of right knee (Primary Dx); S/P total knee arthroplasty, right Start: 01-24-2024 End: 01-24-2024 Bamboo flowsheet Jimbo Zapatadlach PT Work Phone: [facility] Start: 01-24-2024 End: 01-24-2024 Bamboo flowsheet Jimbo Zapatadlach PT Work Phone: [facility] Start: 01-24-2024 End: 01-24-2024 ambulatory Jimbo Zapatadlach PT Work Phone: [facility] PT Comment on above: Acute pain of right knee (Primary Dx); S/P total knee arthroplasty, right Start: 01-22-2024 End: 01-22-2024 Refill Brooks Calixto DO Work Phone: [facility] 230 Comment on above: Psychophysiological insomnia Start: 01-21-2024 End: 01-21-2024 ambulatory Jimbo D Jodidlach PT Work Phone: [facility] PT Comment on above: Acute pain of right knee (Primary Dx); S/P total knee arthroplasty, right Start: 01-14-2024 End: 01-14-2024 Bamboo flowsheet Jimbo Phoenix Gundlach PT Work Phone: [facility] Start: 01-14-2024 End: 01-14-2024 Bamboo flowsheet Jimbo Phoenix Gundlach PT Work Phone: [facility] Start: 01-14-2024 End: 01-14-2024 ambulatory Jimbo Zapatadlach PT Work Phone: [facility] PT Comment on above: Acute pain of right knee (Primary Dx); S/P total knee arthroplasty, right Start: 01-08-2024 End: 01-08-2024 Bamboo flowsheet Jimbo Zapatadlach PT Work Phone: [facility] Start: 01-08-2024 End: 01-08-2024 Bamboo flowsheet Jimbo Zapatadlach PT Work Phone: [facility] Start: 01-08-2024 End: 01-08-2024 ambulatory Jimbo Zapatadlach PT Work Phone: [facility] PT Comment on above: Acute pain of right knee (Primary Dx); S/P total knee arthroplasty, right Start: 01-06-2024 End: 01-06-2024 Bamboo flowsheet Jimbo Zapatadlach PT Work Phone: [facility] Start: 01-06-2024 End: 01-06-2024 Bamboo flowsheet Jimbo Zapatadlach PT Work Phone: [facility] Start: 01-06-2024 End: 01-06-2024 ambulatory Jimbo Zapatadlach PT Work Phone: [facility] PT Comment on above: Acute pain of right knee (Primary Dx); S/P total knee arthroplasty, right Start: 01-02-2024 End: 01-02-2024 Clinisync Result Encounter Generic External Data Provider [facility] External Department Unsolicited Start: 01-02-2024 End: 01-02-2024 Clinisync Result Encounter Generic External Data Provider [facility] External Department Unsolicited Start: 01-01-2024 End: 01-02-2024 ambulatory JORGE L HATCH Facility:[facility] Start: 12-29-2023 End: 12-30-2023 Refill Brooks L Esperance DO Work Phone: [facility] Comment on above: Psychophysiological insomnia Start: 12-20-2023 End: 12-20-2023 Patient encounter procedure DO Brooks Esperance Work Phone: [facility] Work Phone: Start: 12-20-2023 End: 12-20-2023 ambulatory DO Brooks L Esperance Work Phone: [facility] Work Phone: Start: 12-12-2023 End: 12-12-2023 ambulatory BROOKS L CUTLER Not Available Start: 12-11-2023 End: 12-11-2023 ambulatory PACHECO ESPINOSAAugust Facility:[facility] Start: 12-11-2023 Encounter for other preprocedural examination JORGE L HATCH [facility] Start: 12-11-2023 End: 12-11-2023 Admission to establishment [address] Other Phone: Pre Anesthesia Start: 12-11-2023 End: 12-11-2023 Patient encounter procedure [address] Other Phone: Pre Anesthesia Comment on above: Pre-op exam (Primary Dx); History of CVA (cerebrovascular accident); Bilateral carotid artery stenosis; Primary hypertension; Hypothyroidism, unspecified type; Obesity, Class II, BMI 35-39.9; Prediabetes; Factor V Leiden (HCC); Murmur; YUAN (obstructive sleep apnea) Start: 12-11-2023 End: 12-11-2023 Preprocedural examination done [address] Other Phone: [facility] Work Phone: Start: 12-11-2023 End: 12-11-2023 Clinisync Result Encounter Generic External Data Provider [facility] External Department Unsolicited Start: 12-11-2023 End: 12-11-2023 Clinisync Result Encounter Generic External Data Provider [facility] External Department Unsolicited Start: 12-11-2023 End: 12-11-2023 Telephone encounter Brooks L Esperance DO [facility] Start: 12-11-2023 End: 12-11-2023 ambulatory JORGE L HATCH Facility:[facility] Start: 12-09-2023 End: 12-09-2023 Refill Brooks L Esperance DO Work Phone: [facility] 230 Comment on above: Type 2 diabetes harman itus without complication, without long- term current use of insulin (CMS/HCC) Start: 11-27-2023 End: 11-27-2023 Refill Cong LAU Work Phone: [facility] 230 Comment on above: Psychophysiological insomnia Start: 11-18-2023 End: 11-18-2023 ambulatory RIZWANA SALAZAR Facility:[facility] Start: 11-18-2023 End: 11-18-2023 Patient encounter procedure Rizwana Salazar MD Work Phone: Vascular Surgery Comment on above: Stenosis of right ca rotid artery (Primary Dx); Left carotid artery occlusion Start: 11-13-2023 End: 11-13-2023 Bamboo flowsheet Brooks L Esperance DO [facility] Phone: [facility] Start: 11-13-2023 End: 11-13-2023 Bamboo flowsheet Brooks L Esperance DO Work Phone: [facility] 230 Start: 11-13-2023 End: 11-13-2023 ambulatory BROOKS L CUTLER Not Available Start: 11-13-2023 End: 11-13-2023 Patient encounter procedure Brooks L Esperance DO [facility] Comment on above: Chronic pain syndrom e (Primary Dx); Bilateral primary osteoarthritis of knee; Type 2 diabetes mellitus without complication, without long-term current use of insulin (CMS/HCC); Type 2 diabetes mellitus with diabetic cataract (CMS/HCC); 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); Sacroiliitis, not elsewhere classified (CMS/HCC) Start: 10-28-2023 End: 10-28-2023 Refparker Rosen PA Work Phone: [facility] 230 Comment on above: Psychophysiological insomnia Start: 10-24-2023 End: 10-24-2023 ambulatory MONTANA KNAPP Not Available Start: 10-24-2023 End: 10-24-2023 Patient encounter procedure Montana Knapp DO Work Phone: [facility] Comment on above: Primary osteoarthrit is of both knees (Primary Dx) Start: 10-23-2023 End: 10-23-2023 Bamboo flowsheet Brooks L Esperance DO Work Phone: [facility] 230 Start: 10-23-2023 End: 10-23-2023 Bamboo flowsheet Brooks L Esperance DO Work Phone: [facility] 230 Start: 10-23-2023 End: 10-23-2023 Patient encounter procedure Brooks L Esperance DO Work Phone: [facility] 230 Comment on above: C7 radiculopathy (Pr imary Dx); Somatic dysfunction of lumbar region; Somatic dysfunction of pelvis region; Somatic dysfunction of cervical region; Somatic dysfunction of thoracic region Start: 10-23-2023 End: 10-23-2023 ambulatory BROOKS L CUTLER Not Available Start: 10-22-2023 End: 10-22-2023 Bamboo flowsheet Tracey Valenzuela DO Work Phone: [facility] Start: 10-22-2023 End: 10-22-2023 Bamboo flowsheet Tracey Valenzuela DO Work Phone: [facility] Start: 10-22-2023 End: 10-22-2023 Office outpatient new 30 minutes Tracey Valenzuela DO Work Phone: [facility] Comment on above: Right knee pain, uns pecified chronicity (Primary Dx); Primary osteoarthritis of right knee; Primary osteoarthritis of left knee Start: 10-22-2023 End: 10-22-2023 ambulatory TRACEY VALENZUELA Not Available Start: 09-25-2023 End: 09-25-2023 ambulatory JACK BARBOSA [facility] Start: 07-23-2023 End: 07-23-2023 ambulatory BROOKS Harjinder CALIXTO Not Available Start: 07-18-2023 End: 07-18-2023 ambulatory [facility] Start: 07-18-2023 End: 07-18-2023 ambulatory [facility] Start: 07-12-2023 End: 07-12-2023 ambulatory CONG ROSEN Not Available Start: 05-15-2023 End: 05-15-2023 ambulatory CONG ROSEN Not Available Start: 05-06-2023 End: 05-06-2023 ambulatory MISA A PETITTI Not Available Start: 05-01-2023 End: 05-01-2023 ambulatory MAYA PENN Not Available Start: 04-17-2023 End: 04-17-2023 ambulatory MISA A PETITTI Not Available Start: 03-31-2023 Refill Cong Rosen P A Work Phone: [facility] 230 Comment on above: Neuralgia and neurit is, unspecified Start: 10-19-2022 Office outpatient vi sit 15 minutes Dory Wells Work Phone: [facility] Work Phone: Start: 10-19-2022 Patient encounter procedure Monroe nntaylor Wells Work Phone: SA-Xiqnxoxicd-Ctpuog ke 320 Work Phone: Start: 10-19-2022 ambulatory Jack Barbosa MD Faci lity:[id number] Start: 05-22-2022 End: 05-22-2022 ambulatory Iza King Other [employer] Other Start: 05-22-2022 Telephone encounter Iza King [facility] Start: 05-17-2022 End: 05-17-2022 ambulatory Jatin Saldana Other [place] [employer] Other Start: 05-17-2022 Telephone encounter Jatincarlos Saldana [facility] [place] Start: 05-14-2022 End: 05-14-2022 ambulatory Jatin Saldana Other [employer] Other Start: 05-14-2022 Office outpatient vi sit 25 minutes Jatin Shana [facility] Start: 05-09-2022 End: 05-09-2022 ambulatory Iza Blades Other [employer] Other Start: 05-09-2022 Office outpatient ne w 45 minutes Iza Blades [facility] Start: 05-01-2022 (PROC) PROCEDURE Jatin Saavedra S [facility] [place] Start: 05-01-2022 End: 05-01-2022 ambulatory Jatin Saldana Other [employer] Other Start: 04-24-2022 End: 04-24-2022 ambulatory Jatin Saldana Other [employer] Other Start: 04-24-2022 Office outpatient vi sit 25 minutes Jatin Shana [facility] Start: 04-03-2022 (PROC) PROCEDURE Jatin Saavedra S [facility] [place] Start: 04-03-2022 End: 04-03-2022 ambulatory Jatin Saldana Other [employer] Other Start: 03-26-2022 End: 03-26-2022 ambulatory Jatin Sahna Other [employer] Other Start: 03-26-2022 Office outpatient vi sit 25 minutes Jatin Shana [facility] Start: 03-13-2022 (PROC) PROCEDURE Jatin Saavedra S [facility] [place] Start: 03-13-2022 End: 03-13-2022 ambulatory Jatincarlos Saldana Other [employer] Other Start: 03-07-2022 End: 03-07-2022 ambulatory Jatin Saldana Other [facility] [employer] Other Start: 03-07-2022 FQ[facility] visit new patient Jatin Saldana [facility] Start: 07-28-2021 Office outpatient vi sit 15 minutes Dory Wlels Work Phone: [facility] Work Phone: Start: 07-28-2021 Patient encounter procedure Je larisa Wells Work Phone: RN-Mhxckzcsrn-Qwplzq ke 320 Work Phone: Start: 02-01-2021 Chart Update Dory Wells Work Phone: [facility] [facility] Work Phone: Start: 07-19-2020 Rx Renewal Dory Wells Work Phone: [facility] Work Phone: Start: 05-21-2018 Patient encounter procedure Ashley Salazar Facility:[facility] Start: 12-11-2017 Patient encounter procedure Ashley Salazar Facility:[facility] Start: 05-29-2017 Patient encounter procedure Ashley Salazar Facility:[facility] Patient encounter status Dory Wells Work Phone: [facility] Work Phone: Procedures Date Procedure Procedure Detail Performing Clinician Start: 02-03-2024 End: 02-03-2024 SKIN / NAIL BIOPSY Misa Moe MD Work Phone: Start: 01-02-2024 [facility] BAS METAB 2000 PNL SERPL Generic External Data Provider Start: 01-02-2024 [facility] CBC PNL BLD AUTO Ge neric External Data Provider Start: 12-12-2023 Mammography Brooks Cu tler DO Work Phone: Start: 12-11-2023 [facility] CONFIRM BLOOD TYPE Generic External Data Provider Start: 12-11-2023 Antibody screen JORGE L HATCH Comment on above: Order Comment: Speci men Type: BLOOD SPECIMEN Ordering Facility: [facility] Address: [address] [place] [address] Performed By: #### T [id number] #### [facility] CLIA [id number] [place] [address] [place] Start: 10-24-2023 Arthrocentesis aspir &/inj major jt/bursa w/o us Montana Knapp DO Work Phone: Start: 10-22-2023 Arthrocentesis aspir &/inj major jt/bursa w/o us Tracey Valenzuela DO Work Phone: Start: 10-22-2023 Radiologic examinati on knee 1/2 views Tracey Valenzuela DO Work Phone: Start: 09-17-2022 Mammography Cong ALU Work Phone: Carotid Thromboendarterectomy Dory Wells Work Phone: section Dory soriano Work Phone: H/O: surgery History of nevus excision Misa Moe MD Work Phone: Neuroplasty and hilliard sposition of median nerve at carpal tunnel Dory Wells Work Phone: Thyroid Surgery Jw-Thyroidectomy Dory Wells Work Phone: Plan of Treatment Date Care Activity Detail Author Start: 05-26-2035 RSV Vaccine (1 - 1-dose 75+ series) RSV Vaccine (1 - 1-dose 75+ series) [facility] Start: 12-10-2026 Diabetes Screening Diabetes Screening [facility] Start: 07-22-2026 Diabetes Screening Diabetes Screening [facility] Start: 02-18-2025 Glaucoma screening Diabetes: Retinopathy Screening [facility] Start: 02-02-2025 End: 02-02-2025 Patient encounter procedure 02/02/2025 8:45 AM EST Office Visit [facility] [address] [place] [id number] Misa Moe MD [address] [place] [address] [facility] Start: 12-11-2024 Screening for malignant neoplasm of breast Mammogram [facility] Start: 09-13-2024 Screening for malignant neoplasm of colon [facility] Start: 07-22-2024 Urine screening for protein Diabetes: Urine Protein Screening [facility] Start: 05-14-2024 Urine screening for protein Diabetes: Urine Protein Screening [facility] Start: 03-23-2024 End: 03-23-2025 Thyrotropin [Units/volume] in Serum or Plasma Tsh+free t4 Lab Routine Other specified hypothyroidism (CMS/HCC) Expected: 03/23/2024 (Approximate), Expires: 03/23/2025 [facility] Work Phone: Comment on above: Expected: 03/23/2024 (Approximate), Expi res: 03/23/2025 Start: 03-20-2024 End: 03-20-2024 ambulatory 03/20/2024 8:30 AM EST [facility] [address] [place] [id number] Jimbo Rodriguez, PT [address] [place] [address] Arrived [facility] Comment on above: Arrived Start: 03-12-2024 Hemoglobin A1c measurement Diabetes: Hemoglobin A1C [facility] Start: 03-06-2024 End: 03-06-2024 ambulatory 03/06/2024 10:30 AM EST Treatment [facility] [address] [place] [phone] Jimbo Rodriguez, PT [address] [place] [address] [facility] Start: 03-02-2024 End: 03-02-2024 ambulatory 03/02/2024 10:00 AM EST Treatment [facility] [address] [place] [phone] Jimbo Rodriguez, PT [address] [place] [address] [facility] Start: 02-28-2024 End: 02-28-2024 ambulatory [facility] Comment on above: Arrived Start: 02-26-2024 End: 02-26-2024 ambulatory [facility] Comment on above: Arrived Start: 02-21-2024 End: 02-21-2024 ambulatory [facility] Comment on above: Arrived Start: 02-18-2024 End: 02-18-2024 ambulatory [facility] Comment on above: Arrived Start: 02-17-2024 End: 02-17-2024 ambulatory [facility] Comment on above: Arrived Start: 02-14-2024 End: 02-14-2024 ambulatory 02/14/2024 10:00 AM EST Treatment [facility] [address] [place] [address] Jazzy Hayward [employer] [address] [place] [address] Arrived [facility] Comment on above: Arrived Start: 02-11-2024 End: 02-11-2024 ambulatory 02/11/2024 1:00 PM EST Treatment [facility] [address] [place] [address] Denia Cruz, [employer] [facility] Start: 02-10-2024 End: 02-10-2024 ambulatory [facility] Comment on above: Arrived Start: 02-07-2024 End: 02-07-2024 ambulatory [facility] Comment on above: Arrived Start: 02-04-2024 End: 02-04-2024 ambulatory [facility] Comment on above: Arrived Start: 02-03-2024 End: 02-03-2024 Patient encounter procedure [facility] Comment on above: Arrived Start: 01-31-2024 End: 01-31-2024 ambulatory [facility] Comment on above: Arrived Start: 01-28-2024 End: 01-28-2024 ambulatory 01/28/2024 11:00 AM EST Treatment [facility] [address] [place] [address] Jimbo Rodriguez, PT [address] [place] [address] [facility] Start: 01-24-2024 End: 01-24-2024 ambulatory [facility] Comment on above: Arrived Start: 01-21-2024 End: 01-21-2024 ambulatory 01/21/2024 11:00 AM EST Treatment [facility] [address] [place] [address] Jimbo Rodriguez, PT [address] [place] [address] [facility] Start: 01-14-2024 End: 01-14-2024 ambulatory 01/14/2024 11:00 AM EST Treatment [facility] [address] [place] [address] Jimbo Rodriguez, PT [address] [place] [address] [facility] Start: 01-08-2024 End: 01-08-2024 ambulatory [facility] Comment on above: Arrived Start: 01-01-2024 End: 01-01-2024 Admission to same day surgery center 01/01/2024 12:58 PM EST - 01/01/2024 3:42 PM EST Surgery [facility] [address] [place] [address] [place] [address] [place] [address] ARTHROPLASTY REPLACE JOINT TOTAL KNEE JOÃO/EX STAY [facility] Comment on above: ARTHROPLASTY REPLACE JOINT TOTAL KNEE JOÃO/EX STAY Start: 01-01-2024 End: 01-01-2024 Arthrp kne condyle&platu medial&lat compartments ARTHROPLASTY REPLACE JOINT TOTAL KNEE Unilateral primary osteoarthritis, right knee 01/01/2024 12:58 PM EST AV OR Start: 01-01-2024 Subsequent hospital visit by physician 01/01/2024 12:58 PM EST Hospital Encounter [facility] [address] [place] [address] [place] [address] [place], [place] [id number] Unilateral primary osteoarthritis, right knee [M17.11] [facility] Comment on above: Unilateral primary osteoarthritis, right knee [M17.11] Start: 12-12-2023 End: 12-12-2023 Professional / ancillary services management 12/12/2023 12:30 PM EDT Ancillary Procedure [facility] [address] [place] [phone] [facility] Start: 12-11-2023 End: 03-11-2024 Hemoglobin A1c in Blood [facility] Work Phone: Comment on above: Expected: 12/11/2023, Expires: Start: 10-29-2023 End: 10-29-2023 Patient encounter procedure 10/29/2023 9:15 AM EDT Office Visit [facility] [address] [place] [address] Tracey Valenzuela DO [address] [place] [address] [facility] Start: 10-24-2023 End: 10-24-2023 Patient encounter procedure 10/24/2023 7:45 AM EDT Office Visit [facility] [address] [place] [phone] Montana Knapp, DO [address] [place] [address] [facility] Start: 10-23-2023 Hemoglobin A1c measurement Diabetes: Hemoglobin A1C [facility] Start: 10-23-2023 End: 10-23-2023 Patient encounter procedure [facility] 230 Comment on above: Arrived Start: 10-22-2023 End: 10-22-2023 Patient encounter procedure 10/22/2023 9:30 AM EDT Office Visit [facility] [address] [place] [phone] Tracey Valenzuela DO [address] [facility] [[email or web address] [address] [place] [address] Arrived [facility] Comment on above: Arrived Start: 10-20-2023 Covid-19 Vaccine ( season) Covid-19 Vaccine ( season) [facility] Start: 10-20-2023 Influenza vaccination Influenza Vaccine (#1) [facility] Start: 09-18-2023 Screening for malignant neoplasm of breast [facility] Start: 04-19-2023 Hemoglobin A1c measurement Diabetes: Hemoglobin A1C [facility] Start: 04-17-2023 End: 04-17-2023 Patient encounter procedure 04/17/2023 8:30 AM EST Office Visit [facility] [address] [place] [address] Misa Moe MD [address] [place] [address] [facility] Start: 12-29-2022 Glaucoma screening Diabetes: Retinopathy Screening [facility] Start: 09-07-2022 FUV, Provider: Jack Barbosa, Status: Pen, Time: 11:45 AM FUV, Provider: Jack Barbosa, Status: Pen, Time: 11:45 AM [facility] Work Phone: Start: 09-07-2022 CAROTID, Provider: [facility], Status: Pen, Time: 10:00 AM CAROTID, Provider: [facility], Status: Pen, Time: 10:00 AM [facility] Work Phone: Start: 08-31-2022 Urine screening for protein Diabetes: Urine Protein Screening [facility] Start: 08-03-2022 FUV, Provider: Jack Barbosa, Status: Pen, Time: 10:00 AM FUV, Provider: Jack Barbosa, Status: Pen, Time: 10:00 AM [id number] Work Phone: Start: 08-03-2022 CAROTID, Provider: [facility], Status: Pen, Time: 9:00 AM CAROTID, Provider: [facility], Status: Pen, Time: 9:00 AM [id number] Work Phone: Start: 06-21-2021 FUV, Provider: Rizwana Salazar, Status: Pen, Time: 2:00 PM FUV, Provider: Rizwana Salazar, Status: Pen, Time: 2:00 PM [facility] Work Phone: Start: 06-21-2021 CAROTID, Provider: [facility], Status: Pen, Time: 1:00 PM CAROTID, Provider: [facility], Status: Pen, Time: 1:00 PM [facility] Work Phone: Start: 2005 Lipid panel Lipid Screening [facility] Start: 2005 Screening for malignant neoplasm of colon [facility] Start: 1990 Screening for malignant neoplasm of cervix [facility] Start: 1981 Screening for malignant neoplasm of cervix [facility] Start: 05-26-1979 Urine microalbumin profile DTaP,Tdap,Td Vaccine (1 - Tdap) [facility] Start: 1978 Annual PCP Team Chronic Disease Visit Annual PCP Team Chronic Disease Visit [facility] Start: 1978 Anxiety Screening Anxiety Screening [facility] Start: 1978 BP Controlled (<130/80) BP Controlled (<130/80) [facility] Start: 1978 Depression Screening Depression Screening [facility] Start: 1978 Hepatitis C screening Hepatitis C Screening [facility] Start: 1978 HIV screening HIV Screening [facility] Start: 1960 Screening for malignant neoplasm of colon [facility] Dermatopathology exam Dermatopat hology exam Pathology and Cytology Timed Neoplasm of unspecified behavior of bone, soft tissue, and skin Release Upon Ordering for 1 Occurrences starting 02/03/2024 [facility] Work Phone: Comment on above: Release Upon Ordering for 1 Occurrences starting 02/03/2024 End: 11-17-2024 US Carotid arteries - bilateral US CAROTID [facility] Lab Routine Stenosis of right carotid artery Left carotid artery occlusion 1 Occurrences starting 11/18/2023 until 11/17/2024 [facility] Work Phone: Comment on above: 1 Occurrences starting 11/18/2023 until 11/17/2024 Immunizations Immunization Date Immunization Notes Care Provider [facility] 11-29-2022 Influenza, injectabl e, [place] Canine Kidney, preservative free, quadrivalent Cong Rosen PA Work Phone: [facility] 11-29-2022 influenza virus vaccine, unspecified formulation Rizwana Salazar MD Work Phone: [facility] 11-30-2021 Influenza, injectabl e, Madin [place] Canine Kidney, preservative free, quadrivalent Cong Rosen PA Work Phone: [facility] 11-21-2020 Influenza, injectabl e, Madin [place] Canine Kidney, preservative free, quadrivalent Cong Rosen PA Work Phone: [facility] 12-27-2019 zoster vaccine recombinant Cong Rosen PA Work Phone: [facility] 11-02-2019 Influenza, injectabl e, Madin [place] Canine Kidney, preservative free, quadrivalent Cong Rosen PA Work Phone: [facility] 10-24-2019 zoster vaccine recombinant Cong Rosen PA Work Phone: [facility] 10-23-2019 zoster vaccine recombinant Cong Rosen PA Work Phone: [facility] 11-26-2018 Influenza, injectabl e, Madin [place] Canine Kidney, quadrivalent with preservative Cong Rosen PA Work Phone: [facility] 11-26-2018 influenza, injectabl e, madin renu canine kidney, preservative free Cong Rosen PA Work Phone: [facility] 12-04-2017 influenza, injectabl e, madin renu canine kidney, preservative free Cong Rosen PA Work Phone: [facility] 12-13-2016 seasonal influenza, intradermal, preservative free Cong Rosen PA Work Phone: [facility] 12-27-2015 influenza, injectabl e, quadrivalent, preservative free Cong Rosen PA Work Phone: [facility] 12-27-2015 seasonal influenza, intradermal, preservative free Cong Rosen PA Work Phone: [facility] 12-26-2015 seasonal influenza, intradermal, preservative free Cong Rosen PA Work Phone: [facility] Payers Date Payer Category Payer [facility] [id number] 2024 Unknown [id number] 2023 Self-pay [id number] 2022 Private Health Insurance . [id number] 2022 Unknown 2022 [employer] Blue Shield [id number] [id number] 2014 Unknown [id number] 1960 Unknown [id number] 2.16.840.1.580735.3.579.2 .356 1960 Unknown [id number] 2.16.840.1.923839.3.579.2 .1243 1960 Unknown [id number] 2.16.840.1.112594.3.579.2 .125 1960 Unknown [id number] 2.16.840.1.416259.3.579.2 .1259 1960 Unknown [id number] 2.16.840.1.641794.3.579.2 .125 1960 Unknown [id number] 2.16.840.1.702829.3.579.2 .1259 1960 Unknown [id number] 2.16.840.1.927241.3.579.2 .125 1960 Unknown [id number] 2.16.840.1.037523.3.579.2 .1259 1960 Unknown [id number] 2.16.840.1.058225.3.579.2 .1259 1960 Unknown [id number] 2.16.840.1.154722.3.579.2 .1259 1960 Unknown [id number] 2.16.840.1.805576.3.579.2 .1259 1960 Unknown [id number] 2.16.840.1.701974.3.579.2 .1259 1960 Unknown [id number] 2.16.840.1.532569.3.579.2 .1259 1 Unknown [id number] 2.16.840.1.428580.3.579.2 .1258 1960 Unknown [id number] 2.16.840.1.943145.3.579.2 .1258 1960 Unknown [id number] 2.16.840.1.437484.3.579.2 .1258 1960 Unknown [id number] 2.16.840.1.115806.3.579.2 .1258 1960 Unknown [id number] 2.16840.1.840010.3.579.2 .1258 1960 Unknown [id number] 2.16840.1.056555.3.579.2 .1258 1960 Unknown [id number] 2.840.1.657427.3.579.2 .1258 1960 Unknown [id number] 2.840.1.098854.3.579.2 .1258 1960 Unknown [id number] 2.840.1.595877.3.579.2 .1258 1960 Unknown [id number] 2.840.1.147811.3.579.2 .1258 1960 Unknown [id number] 2.840.1.415063.3.579.2 .1258 1960 Unknown [id number] 2.16840.1.068967.3.579.2 .1258 1960 Unknown [id number] 2.16.840.1.797121.3.579.2 .1258 1960 Unknown [id number] 2.16.840.1.379054.3.579.2 .1258 1960 Unknown [id number] 2.16840.1.954483.3.579.2 .1258 1960 Unknown [id number] 2.16.840.1.722007.3.579.2 .1259 1960 Unknown [id number] 2.16.840.1.273760.3.579.2 .1258 1960 Unknown [id number] 2.16.840.1.597884.3.579.2 .9 1960 Unknown [id number] 2.16.840.1.258165.3.579.2 .1258 1960 Unknown [id number] 2.16.840.1.404484.3.579.2 .1258 1960 Unknown [id number] 2.16.840.1.804517.3.579.2 .1258 1960 Unknown [id number] 2.16.840.1.811341.3.579.2 .1258 1960 Unknown [id number] 2.16.840.1.372959.3.579.2 .1259 Unknown [id number] 2.16.840.1.394712.3.579.2 .243 Unknown [id number] 2.16.840.1.306557.3.579.2 .243 Unknown [id number] 2.16.840.1.594440.3.579.2 .243 Unknown [id number] 2.16.840.1.064489.3.579.2 .531 Social History Date Type Detail Facility Start: 09-26-2022 End: 03-05-2023 [facility] Work Phone: Start: 09-26-2022 End: 02-03-2024 Sex Assigned At [employer] Other Start: 09-26-2022 End: 11-18-2023 Tobacco smoking status NHIS Never smoked tobacco [facility] Start: 09-26-2022 End: 11-18-2023 Tobacco use and exposure Smokeless tobacco non-user [facility] Start: 03-05-2023 End: 02-03-2024 Alcohol intake Current drinker of alcohol (finding) [facility] Within the last year , have you been afraid of your partner or ex-partner? No [facility] How often do you att end bahai or nondenominational services? Patient refused [facility] Are you [...] - these days [OSQ] To some extent [facility] (I/We) worried wheth er (my/our) food would run out before (I/we) got money to buy more. Never true [facility] Start: 1960 Sex Assigned At Female [facility] Start: 09-11-2022 Gender identity Identifies as female gender (finding) [facility] Start: 09-11-2022 Sexual orientation Heterosexual (finding) [facility] Start: 1960 Sex assigned at Not on file [facility] Start: 12-11-2023 Alcoholic beverage intake Ex-drinker (finding) [facility] Start: 12-11-2023 Alcohol Comment socialy [facility] Goals Date Patient Goal Desired Activity /State Personal health goal Clinical Notes 07-28-2020 to 03-23-2024 Telephone Encounter - Brooks Calixto DO - 03/23/2024 12:35 PM ESTTelephone Encounter - Brooks Calixto DO - 03/23/2024 12:35 PM Moshe Rodriguez, PT - 03/20/2024 8:30 AM EST Note Date & Type Note Facility 03-23-2024 Telephone encounter Note Refilled this, but it is time to recheck her thyroid labs again at her convenience, order sent to [facility] 03-23-2024 Miscellaneous Notes Refilled this, but it is time to recheck her thyroid labs again at her convenience, order sent to [facility] documented in this encounter [facility] 03-20-2024 History of Present illness Narrative Images from the original note were not included. Physical Therapy Physical Therapy Treatment Visit Patient Name: Carolynn Givens Today's Date: 03/20/2024 Reason: s/p right TKA on 01/01/2024 11 weeks post op on 03/18/24 Visit number: 5; 18 total Supervised time: 39 minutes Total time: 64 minutes Precautions: TKA precautions Subjective: Pain: pain continues with ROM endranges through the medial knee, posterior lateral knee. Overall progress: Continues to have stiffness chiefly into flexion. Has had 18 visits including extensive manual therapy (STM, retrograde massage, contract relax, patellar mobs, over pressure, KT taping, cupping), ther ex (ROM, flexibility, low load long duration stretch, aquatic therapy) and modalities (heat, ice, estim). Despite effort, and consistent HEP compliance the knee flexion ROM does not change inter/intra session at all. Recommend return to ortho to discuss next steps. Objective: KNEE PROM: R knee flexion 90 R knee extension 0 MMT: R knee flexion 4/5 R knee extension 4/5 Palpation: Incision showing good signs of healing. Functional: Gait is reciprocal with TKE stiffness Stairs are step to with handrail Treatment: Manual: x29 minutes STM to quad in sitting for flexion with OP; prone STM to posterior knee for extension; cupping to quad/anterior knee with combined ROM. Therapeutic Exercise: x10 minutes supervised per flowsheet of TKA flexibility, ROM, strength. Modalities: x10 minutes MHP start of session to knee in sitting; x15 minutes ice/estim to right posterior knee post session Assessment: No progress into flexion ROM despite extensive manual therapy, ther ex, and modality focus. Plan Recommend return to ortho to discuss flexion stiffness. documented in this encounter [facility] 03-02-2024 History of Present illness Narrative Images from the original note were not included. Physical Therapy Physical Therapy Treatment Visit Patient Name: Carolynn Givens Today's Date: 03/02/2024 Reason: s/p right TKA on 01/01/2024 8 weeks post op on 02/26/24 Visit number: 4; 17 total Supervised time: 40 minutes Total time: 65 minutes Precautions: TKA precautions Subjective: Pain: pain minimal at rest, with ADL's. Severe through IT band and medial knee with flexion. Overall progress: Doing well with all except remaining stiffness with flexion ROM. Objective: KNEE PROM: R knee flexion 95 R knee extension 0 MMT: R knee flexion 4/5 R knee extension 4/5 Palpation: Incision showing good signs of healing. Functional: Gait is reciprocal with TKE stiffness Stairs are step to with handrail Treatment: Manual: x15 minutes STM to quad in sitting for flexion with OP; prone STM to posterior knee for extension. Therapeutic Exercise: x25 minutes supervised per flowsheet of TKA flexibility, ROM, strength. Modalities: x10 minutes MHP start of session to knee in sitting; x15 minutes ice/estim to right posterior knee post session Assessment: Doing well with extension ROM. Flexion continues to be stiff with fairly firm endfeel. Advised she continue compression, elevation, HEP, pool workouts. Plan Continue PT per POC. documented in this encounter [facility] 02-28-2024 History of Present illness Narrative Images from the original note were not included. Physical Therapy Physical Therapy Treatment Visit Patient Name: Carolynn Givens Today's Date: 02/28/2024 Reason: s/p right TKA on 01/01/2024 8 weeks post op on 02/26/24 Visit number: 3; 16 total Supervised time: 40 minutes Total time: 65 minutes Precautions: TKA precautions Subjective: Pain: continues to have pain endrange flexion; otherwise improving. Overall progress: Slow improvements. Objective: KNEE PROM: R knee flexion 95 R knee extension 0 MMT: R knee flexion 4/5 R knee extension 4/5 Palpation: Incision showing good signs of healing. Functional: Gait is reciprocal with TKE stiffness Stairs are step to with handrail Treatment: Manual: x20 minutes STM to quad in sitting for flexion with OP; prone STM to posterior knee for extension. Cupping to scar, quad, IT band. Therapeutic Exercise: x20 minutes supervised per flowsheet of TKA flexibility, ROM, strength. Modalities: x10 minutes MHP start of session to knee in sitting; x15 minutes ice/estim to right posterior knee post session Assessment: Doing well with extension ROM. Flexion continues to be stiff with fairly firm endfeel. Advised she continue compression, elevation, HEP, pool workouts. Plan Continue PT per POC. documented in this encounter [facility] 02-26-2024 History of Present illness Narrative Images from the original note were not included. Physical Therapy Physical Therapy Treatment Visit Patient Name: Carolynn Givens Today's Date: 02/26/2024 Reason: s/p right TKA on 01/01/2024 8 weeks post op on 02/26/24 Visit number: 2; 15 total Supervised time: 35 minutes Total time: 60 minutes Precautions: TKA precautions Subjective: Pain: continues to have pain endrange flexion; otherwise improving. Overall progress: Slowly improving. Reports compliance with pool exercises for flexion. Still feeling stiff. Otherwise, pain and gait improving. Objective: KNEE PROM: R knee flexion 97 R knee extension 0 MMT: R knee flexion 4/5 R knee extension 4/5 Palpation: Incision showing good signs of healing. Functional: Gait is reciprocal with TKE stiffness Stairs are step to with handrail Treatment: Manual: x15 minutes STM to quad in sitting for flexion; EOB supine knee flexion STM and OP; prone STM to posterior knee for extension. Therapeutic Exercise: x20 minutes supervised per flowsheet of TKA flexibility, ROM, strength. Modalities: x10 minutes MHP start of session to knee in sitting; x15 minutes ice/estim to right posterior knee post session Assessment: Despite heat, MT, and exercise no measurable improvement in flexion endrange. Does have better quality of motion to that point. Advised compression, elevation over the next several days to improve swelling. Plan Continue PT per POC. documented in this encounter [facility] 02-21-2024 History of Present illness Narrative Images from the original note were not included. Physical Therapy Physical Therapy Treatment Visit Patient Name: Carolynn Givens Today's Date: 02/21/2024 Reason: s/p right TKA on 01/01/2024 7 weeks post op on 02/19/24 Visit number: 1; 14 total Supervised time: 35 minutes Total time: 45 minutes Precautions: TKA precautions Subjective: Pain: continues to have pain endrange flexion; otherwise improving. Overall progress: Had follow up. To continue PT, and aquatic exercise with focus on flexion ROM. Objective: KNEE PROM: R knee flexion 97 R knee extension 0 MMT: R knee flexion 4/5 R knee extension 4/5 Palpation: Incision showing good signs of healing. Functional: Gait is reciprocal with TKE stiffness Stairs are step to with handrail Treatment: Manual: x10 minutes STM to quad in sitting for flexion. Therapeutic Exercise: x25 minutes supervised; x10 minutes unsupervised per flowsheet of TKA flexibility, ROM, strength. Modalities: (declined today) x15 minutes ice/estim to right posterior knee post session Assessment: No improvement in ROM today per exam above. Gave new HEP program for flexion in pool center she is going to. Continue per POC. Plan Continue PT per POC. documented in this encounter [facility] 02-18-2024 History of Present illness Narrative Images from the original note were not included. Physical Therapy Physical Therapy Treatment Visit Patient Name: Carolynn Givens Today's Date: 02/18/2024 Reason: s/p right TKA on 01/01/2024 7 weeks post op on 02/19/24 Visit number: 13 Supervised time: 35 minutes Total time: 60 minutes Precautions: TKA precautions Subjective: Pain: moderate to severe pain endrange flexion. Overall progress: Gait, extension doing well. Flexion ROM improving gradually. Follow up with ortho 02/19/2023. Objective: KNEE PROM: R knee flexion 97 R knee extension 0 MMT: R knee flexion 4/5 R knee extension 4/5 Palpation: Incision showing good signs of healing. Functional: Gait is reciprocal with TKE stiffness Stairs are step to with handrail Treatment: Manual: x10 minutes STM to quad in sitting for flexion; STM to posterior knee in prone for extension. Therapeutic Exercise: x25 minutes supervised; x10 minutes unsupervised per flowsheet of TKA flexibility, ROM, strength. Modalities: x15 minutes ice/estim to right posterior knee post session Assessment: Continues to demo slow, however steady improvement in knee flexion ROM. Continue as appropriate based on ortho follow up. Plan Continue PT per POC. documented in this encounter [facility] 02-17-2024 History of Present illness Narrative Images from the original note were not included. Physical Therapy Physical Therapy Treatment Visit Patient Name: Carolynn Givens Today's Date: 02/17/2024 Reason: s/p right TKA on 01/01/2024 7 weeks post op on 02/19/24 Visit number: 12 Supervised time: 30 minutes Total time: 55 minutes Precautions: TKA precautions Subjective: Pain: moderate to severe pain last night sleeping after late night HEP. Overall progress: Gait, extension doing well. Still struggling with flexion ROM. Reports compliance with HEP. Objective: KNEE PROM: R knee flexion 95 R knee extension 0 MMT: R knee flexion 4-/5 R knee extension 4-/5 Palpation: Incision showing good signs of healing. Functional: Gait is reciprocal with TKE stiffness Stairs are step to with handrail Treatment: Therapeutic Exercise: x30 minutes supervised; x10 minutes unsupervised per flowsheet of TKA flexibility, ROM, strength. Modalities: x15 minutes ice/estim to right posterior knee post session Assessment: Slight improvement in flexion PROM today to 95 deg after several stretches. This is with pain posteriorly and at the distal quadriceps. Continue per POC with focus on flexion ROM. Plan Continue PT per POC. documented in this encounter [facility] 02-10-2024 History of Present illness Narrative Images from the original note were not included. Physical Therapy Physical Therapy Treatment Visit Patient Name: Carolynn Givens Today's Date: 02/10/2024 Reason: s/p right TKA on 01/01/2024 5 weeks post op on 02/05/2024 Visit number: 10 Supervised time: 40 minutes Total time: 60 minutes Precautions: TKA precautions Subjective: Pain: pain in the knee improving well. Overall progress: Improving. Reports diligence over the weekend with compression, elevation, and HEP. I really pushed it Objective: KNEE PROM: R knee flexion 95 R knee extension lacking 0 MMT: R knee flexion 4-/5 R knee extension 4-/5 Palpation: Incision showing good signs of healing. Functional: Gait is reciprocal with TKE stiffness Stairs are step to with handrail Treatment: Manual: x8 minutes STM to quad EOB with knee flexed, and laying supine with combined manual overpressure. Therapeutic Exercise: x32 minutes supervised; x10 minutes unsupervised per flowsheet of TKA flexibility, ROM, strength. Modalities: x10 minutes ice/estim to right knee post session Assessment: Improvement to 95 degree's PROM flexion endrange today. Extension still doing well. Progressed to 6 step with good control. Does have stiffness with [place] flexion with step up which improved with verbal cues. Plan Continue PT per POC. documented in this encounter [facility] 02-07-2024 History of Present illness Narrative Images from the original note were not included. Physical Therapy Physical Therapy Treatment Visit Patient Name: Carolynn Givens Today's Date: 02/07/2024 Reason: s/p right TKA on 01/01/2024 5 weeks post op on 02/05/2024 Visit number: 9 Supervised time: 38 minutes Total time: 66 minutes Precautions: TKA precautions Subjective: Pain: pain in the knee improving. Still severe flexion stiffness. Overall progress: Improving slowly. Reports compliance with HEP, elevation, compression. Frustrated with the stiffness. Objective: KNEE PROM: R knee flexion 85 R knee extension lacking 0 MMT: R knee flexion 4-/5 R knee extension 4-/5 Palpation: Incision showing good signs of healing. Functional: Gait is reciprocal with TKE stiffness Stairs are step to with handrail Treatment: Manual: x13 minutes EOB PROM flexion with STM to quad/IT band Therapeutic Exercise: x25 minutes supervised; x10 minutes unsupervised per flowsheet of TKA flexibility, ROM, strength. Modalities: x8 minutes MHP to knee EOB pre manual therapy; x10 minutes ice to right knee post session Assessment: Despite MHP, MT, and progression of stretches, no change in flexion ROM. Advised she continue to compress, elevate and perform HEP consistently. Stiffness likely due to tissue adaption's to similar arc of motion prior to surgery for extended periods. Otherwise doing very well with extension, strength. Plan Continue PT per POC. documented in this encounter [facility] 02-04-2024 History of Present illness Narrative Images from the original note were not included. Physical Therapy Physical Therapy Treatment Visit Patient Name: Carolynn Givens Today's Date: 02/04/2024 Reason: s/p right TKA on 01/01/2024 3 weeks post op on 01/22/2024 Visit number: 8 Supervised time: 40 minutes Total time: 65 minutes Precautions: TKA precautions Subjective: Pain: sore today after tripping on rug yesterday. No fall, her caught her. Overall progress: Improving slowly. Reports compliance with HEP. Objective: KNEE PROM: R knee flexion 85 R knee extension lacking 0 MMT: R knee flexion 4-/5 R knee extension 4-/5 Palpation: Incision showing good signs of healing. Functional: Gait is reciprocal with TKE stiffness Stairs are step to with handrail Treatment: Manual: x8 minutes EOB PROM flexion with STM to quad/IT band Therapeutic Exercise: x32 minutes supervised; x10 minutes unsupervised per flowsheet of TKA flexibility, ROM, strength. Modalities: x15 minutes IFC/ice to right knee post session Assessment: Added prone quad stretch and heel slide supine to HEP. Advised compression, elevation to improve swelling. Continue per POC. Plan Continue PT per POC. documented in this encounter [facility] 02-03-2024 History of Present illness Narrative Images from the original note were not included. Skin Check Location: Patient requests a full body skin examination Dermatologic history: history of Actinic Keratosis, history of atypical mole (Excised-04/17/23 Left lower back), family hx of Melanoma Last visit: Last skin check 1 year ago, last office visit 05/06/2023 infection at excision site Established patient All pertinent medical history, medications, and allergies were reviewed. General Exam: alert, oriented to person, place, and time, normal affect, well appearing Unaccompanied Areas not examined despite medical recommendation: Under socks Scalp, Examined , exam limited by hair Right leg Examined Head, Face Examined Left leg Examined Neck Examined Right foot Not examined Chest Examined Left foot Not examined Back Examined Buttocks Examined Abdomen Examined Digits,nails: Examined Right arm Examined Left arm Examined Lymphatics: Not examined Hands Examined 1. Melanocytic nevus of trunk Scattered benign appearing, regular brown to light brown melanocytic papules and macules with similar morphology Counseled regarding these benign growths. Rarely, a nevus can develop into malignant melanoma, so any changing nevi should be promptly re-evaluated. 2. Lentigines (4) Head - Anterior (Face), Left Arm, Neck, Right Arm Scattered grigsby macules in sun-exposed areas. The patient was informed that lentigines are benign pigmented lesions that occur on sun-exposed and sun-damaged skin. No treatment is necessary. Recommended regular use of broad spectrum sunscreen SPF 30 or higher 3. Seborrheic keratosis Stuck on verrucous, grigsby-brown papules and plaques. Patient was counseled regarding these benign growths. Removal is normally not necessary, but they may be removed if they are symptomatic or for cosmetic reasons. 4. History of nevus excision Left Lower Back No evidence of recurrence in scar from atypical mole excision. Notify office for any recurrence at surgery site or for any new or changing lesions. 5. Neoplasm of unspecified behavior of bone, soft tissue, and skin (2) mid chest Jolivue papule Lesion biopsy Type of biopsy: tangential Informed consent: discussed and consent obtained Informed consent comment: The risks and benefits of the biopsy were discussed. Risks include but are not limited to bleeding, infection, scarring, pain, and nerve damage. An opportunity to ask questions prior to the procedure was permitted and all questions were answered. Patient was prepped and draped in usual sterile fashion: area cleansed with alcohol. Anesthesia: the lesion was anesthetized in a standard fashion Anesthetic: 1% lidocaine w/ epinephrine 1-100,000 buffered w/ 8.4% NaHCO3 Instrument used: DermaBlade Hemostasis achieved with: electrodesiccation Outcome: patient tolerated procedure well Outcome comment: The specimen was placed in a prelabeled formalin container to be sent for pathology Post-procedure details: sterile dressing applied and wound care instructions given Post-procedure details comment: Emphasized need to contact clinic for any signs of infection, uncontrollable bleeding, or complications. Dressing type: bandage Additional details: Photo taken Amount of lidocaine used: 0.5 cc Specimen A - Dermatopathology exam Differential Diagnosis: BCC vs excoriation Check Margins: No Size of lesion: 0.8 x 1.0 cm Left Chest Irregularly pigmented papule Lesion biopsy Type of biopsy: tangential Informed consent: discussed and consent obtained Informed consent comment: The risks and benefits of the biopsy were discussed. Risks include but are not limited to bleeding, infection, scarring, pain, and nerve damage. An opportunity to ask questions prior to the procedure was permitted and all questions were answered. Patient was prepped and draped in usual sterile fashion: area cleansed with alcohol. Anesthesia: the lesion was anesthetized in a standard fashion Anesthetic: 1% lidocaine w/ epinephrine 1-100,000 buffered w/ 8.4% NaHCO3 Instrument used: DermaBlade Hemostasis achieved with: electrodesiccation Outcome: patient tolerated procedure well Outcome comment: The specimen was placed in a prelabeled formalin container to be sent for pathology Post-procedure details: sterile dressing applied and wound care instructions given Post-procedure details comment: Emphasized need to contact clinic for any signs of infection, uncontrollable bleeding, or complications. Dressing type: bandage Additional details: Photo taken Amount of lidocaine used: 0.5 cc Specimen B - Dermatopathology exam Differential Diagnosis: SK vs melanoma Check Margins: No Size of lesion: 0.6 x 1.0 cm Next Visit: 1 year skin check documented in this encounter [facility] 01-31-2024 History of Present illness Narrative Images from the original note were not included. Physical Therapy Physical Therapy Treatment Visit Patient Name: Carolynn Givens Today's Date: 01/31/2024 Reason: s/p right TKA on 01/01/2024 3 weeks post op on 01/22/2024 Visit number: 7 Supervised time: 40 minutes Total time: 65 minutes Precautions: TKA precautions Subjective: Pain: best day I've had yet with lower pain levels. Overall progress: Improving Objective: KNEE PROM: R knee flexion 85 R knee extension lacking 0 MMT: R knee flexion 4-/5 R knee extension 4-/5 Palpation: Incision showing good signs of healing. Functional: Gait is reciprocal with TKE stiffness Stairs are step to with handrail Treatment: Manual: x8 minutes EOB PROM flexion with STM to quad/IT band Therapeutic Exercise: x32 minutes supervised; x10 minutes unsupervised per flowsheet of TKA flexibility, ROM, strength. Modalities: x15 minutes IFC/ice to right knee post session Assessment: Flexion demo'd good improvement today to 85 degree's. Continue per POC. Plan Continue PT per POC. documented in this encounter [facility] 01-28-2024 History of Present illness Narrative Images from the original note were not included. Physical Therapy Physical Therapy Treatment Visit Patient Name: Carolynn Givens Today's Date: 01/28/2024 Reason: s/p right TKA on 01/01/2024 3 weeks post op on 01/22/2024 Visit number: 6 Supervised time: 35 minutes Total time: 45 minutes Precautions: TKA precautions Subjective: Pain: moderate soreness continues; does note the severe pain is starting to let up. Overall progress: Improving. Reports compliance with HEP. Did walk quite a bit a couple days ago and felt sore, which has improved now. Objective: KNEE PROM: R knee flexion 76 R knee extension lacking 3 MMT: R knee flexion 4-/5 R knee extension 4-/5 Palpation: Incision showing good signs of healing. Functional: Gait is reciprocal with FWW Stairs are step to with handrail Treatment: Manual: x8 minutes EOB PROM flexion with STM to quad/IT band Therapeutic Exercise: x27 minutes supervised; x10 minutes unsupervised per flowsheet of TKA flexibility, ROM, strength. Modalities: held today due to time restriction. Assessment: Flexion continues to slowly improve. Started bike today with full revolution at seat 7. Advised rest/elevation/ice over the next couple days to address swelling which will in turn improve flexion. Plan Continue PT per POC. documented in this encounter [facility] 01-24-2024 History of Present illness Narrative Physical Therapy Physical Therapy Treatment Visit Patient Name: Carolynn Givens Today's Date: 01/24/2024 Reason: s/p right TKA on 01/01/2024 3 weeks post op on 01/22/2024 Visit number: 5 Supervised time: 32 minutes Total time: 55 minutes Precautions: TKA precautions Subjective: Pain: severe pain today through the right knee. Overall progress: Had follow up yesterday. Went well. Focus is on flexion. She reports he pushed into endrange flexion and very painful today. Objective: KNEE PROM: R knee flexion 72 R knee extension lacking 5 MMT: R knee flexion 3+/5 R knee extension 3+/5 Palpation: Incision showing good signs of healing. Functional: Gait is reciprocal with FWW Stairs are step to with handrail Treatment: Manual: x8 minutes EOB PROM flexion; gentle EOB roller massage to quad. Therapeutic Exercise: x24 minutes supervised; x8 minutes unsupervised per flowsheet of TKA flexibility, ROM, strength. Modalities: x15 minutes ice/estim to right knee in supine with LE elevated Assessment: Slight improvement in flexion today. Advised short next session to start STM/manual therapies. Ice/estim today post session for pain. Advised TENS unit at home. Plan Continue PT per POC. documented in this encounter [facility] 01-21-2024 History of Present illness Narrative Images from the original note were not included. Physical Therapy Physical Therapy Treatment Visit Patient Name: Carolynn Givens Today's Date: 01/21/2024 Reason: s/p right TKA on 01/01/2024 3 weeks post op on 01/22/2024 Visit number: 4 Supervised time: 30 minutes Total time: 50 minutes Precautions: TKA precautions Subjective: Pain: moderate/severe pain continues, slowly improving with reduced frequency of this. Overall progress: Improving slowly. FWW into clinic today. Reports small distances independently at home. Objective: KNEE PROM: R knee flexion 70 R knee extension lacking 7 MMT: R knee flexion 3+/5 R knee extension 3+/5 Palpation: Incisions covered with dressing. No signs of drainage, infection. Mild swelling consistent with normal post op status. Functional: Gait is step to with FWW Stairs are step to with handrail Treatment: Therapeutic Exercise: x30 minutes supervised; x10 minutes unsupervised per flowsheet of TKA flexibility, ROM, strength. Modalities: x10 minutes ice to right knee in supine with LE elevated Assessment: Slowly improving per exam above. Follow up with ortho this week to remove dressing, stitches. Continue per POC. Plan Continue PT per POC. documented in this encounter [facility] 01-14-2024 History of Present illness Narrative Images from the original note were not included. Physical Therapy Physical Therapy Treatment Visit Patient Name: Carolynn Givens Today's Date: 01/14/2024 Reason: s/p right TKA on 01/01/2024 Visit number: 3 Supervised time: 32 minutes Total time: 47 minutes Precautions: TKA precautions Subjective: Pain: moderate/severe pain continues Overall progress: Improving slowly. FWW into clinic today with small, reciprocal steps. Objective: KNEE PROM: R knee flexion 70 R knee extension lacking 8 MMT: R knee flexion 3+/5 R knee extension 3+/5 Palpation: Incisions covered with dressing. No signs of drainage, infection. Mild swelling consistent with normal post op status. Functional: Gait is step to with FWW Stairs are step to with handrail Treatment: Therapeutic Exercise: x32 minutes supervised; x5 minutes unsupervised per flowsheet of TKA flexibility, ROM, strength. Modalities: x10 minutes ice to right knee in supine with LE elevated Assessment: Improving ROM per exam above. Continue to work on endrange extension PROM, and use of this actively following stretches to reinforce. Plan Continue PT per POC. documented in this encounter [facility] 01-08-2024 History of Present illness Narrative Images from the original note were not included. Physical Therapy Physical Therapy Treatment Visit Patient Name: Carolynn Givens Today's Date: 01/08/2024 Reason: s/p right TKA on 01/01/2024 Visit number: 2 Supervised time: 30 minutes Total time: 45 minutes Precautions: TKA precautions Subjective: Pain: pain had been doing better until her dog jumped up on her leg this AM. No fall or open incision, just pain. Overall progress: Improving slowly. Reports HEP compliance. Using 4 point walker into clinic. FWW on order and should be in soon. Objective: KNEE PROM: R knee flexion 60 R knee extension lacking 10 MMT: R knee flexion 3/5 R knee extension 3/5 Palpation: Incisions covered with dressing. No signs of drainage, infection. Mild swelling consistent with normal post op status. Functional: Gait is step to with 4 point walker Stairs are step to with handrail Treatment: Therapeutic Exercise: x30 minutes supervised; x5 minutes unsupervised per flowsheet of TKA flexibility, ROM, strength. Modalities: x10 minutes ice to right knee in supine with LE elevated Assessment: Improvement in AROM today per exam above. Able to progress to small steps, reciprocal pattern today. Progressing appropriately. Plan Continue PT per POC. documented in this encounter [facility] 01-06-2024 History of Present illness Narrative Physical Therapy Physical Therapy Evaluation Visit Patient Name: Carolynn Givens Today's Date: 01/06/2024 Reason: s/p right TKA on 01/01/2024 Visit number: 1 Subjective: Interim History: Carolynn Givens is a 63 y.o. female that presents today s/p right TKA on 01/01/2024 . She is 5 days post op. Following surgery, she is slowly improving with pain, ROM, strength. She is walking with walker at this time into clinic. Overall, doing well getting around her home, appetite, HEP. Pain: Pain is located through the right knee. Pain ranges from 4-10/10. Worse with prolonged weightbearing activity, endranges of motion. Pain is better with rest, ice, elevation, and medication. Prior Level of Function: Lives in ranch home with . Precautions: TKA precautions Objective: KNEE PROM: R knee flexion 55 R knee extension lacking 10 MMT: R knee flexion 3/5 R knee extension 3/5 Palpation: Incisions covered with dressing. No signs of drainage, infection. Mild swelling consistent with normal post op status. Functional: Gait is step to with 4 point walker Stairs are step to with handrail Treatment: Education: HEP education with demonstration, Educated on Eval Findings and POC Manual Therapy: if needed PROM, contract relax, retrograde massage, scar massage, IASTM Therapeutic Exercise: post op TKA flexibility, ROM, strength, functional patterns Therapeutic Activity: Exercises to improve dynamic activities, functional tasks, functional mobility to return to prior activity level Gait Training: gait training Aquatic Therapy: if needed, when appropriate Neuromuscular re-education: balance training Modalities: Ice, Heat Today: IE; ther ex per flowsheet of HEP review for TKA ROM, flexibility, strength. Educated on avoiding pillow under knee, to keep leg straight. Educated on swelling reduction strategies. Educated on getting wheels for walker for more consistent gait without having to pick walker up each step. Assessment: Patient Goals: Short Term Goal #1: Pt will demo R knee extension of 0 degree's to improve gait Short Term Goal #2: Pt will demo >120 R knee flexion to improve functional mobility, stair negotiation Short Term Goal #3: Pt will demo R knee strength 5/5 MMT Short Term Goal #4: Pt will ambulate indep without LOB for unlimited distances and normal pattern Short Term Goal #5: Pt will perform stairs reciprocally Plan: Pt will benefit from skilled PT to address the above impairments for 2-3x/week for 6-8 weeks. I hereby deem this POC medically necessary. Please sign below. Date: documented in this encounter [facility] 01-02-2024 Note HNO ID: [id number] Author: EMMY MONTILLA RN Service: Care Management Author Type: Registered Nurse Type: Care Mgt Initial Assessment Filed: 01/02/2024 09:51 Note Text: CARE MANAGEMENT: ASSESSMENT AND DISCHARGE PLAN SERVICE DATE: January 02, 2024 SERVICE TIME: 9:47 AM PCP: Brooks Calixto DO Primary Contact: Extended Emergency Contact Information Primary Emergency Contact: elvis givens Address: [address] [place] [id number] [facility] Relation: Spouse Admission Status: Extended Recovery Insurance Provider: [employer] PPO Discharge Planning requested by: Per Department Practice Potential Transition Plans Home;Outpatient Therapy Advance Directives Current Advance Directive: Health Care Power of Sales Manager Prearranged Funerals In Chart: No Current Living Arrangements and Support Lives with: Spouse/significant other Type of Residence: Private Residence (House) Does the patient have to climb stairs at home?: stairs outside the home;Yes Support: Spouse/significant other How do you manage to accomplish the following: Independent: Ambulation;Bathe/Shower;Dress;Mariam ls/Meal Prep;Going to the bathroom;Medication Management;Transportation to appointments/community Current Services/Equipment Current Post-Acute Service(s): DME Current DME Type: Standard walker, Shower seat Discharge Planning Patient Goal(s): Be able to go home, General wellness, Increase strength, Better mobility, Heal wounds [place] of Choice Explained: [place] of Choice Given: No Reason Not Given: No placements necessary Are you interested in bedside delivery of your medications? Yes Discharge Planning Participant(s): Patient Patient/Family Comments: n/a Caregiver Assessment: Caregiver is ready, willing and able to meet the patient's needs as recommended by the inter-professional team: Yes Name of Caregiver: elvis givens (Spouse) Transport at Discharge: Transportation Arrangements: Car Destination: [address] [place] [id number] Needs Prior to Discharge: Needs Prior to Discharge: OT/PT Evaluation Post-Acute Discharge Plan: Patient lives with spouse. Spouse will drive patient home. Patient has her walker. Patient will be doing outpatient therapy at [facility]. Patient's first appt is Saturday01-06-24. Clinicals faxed to [facility] at [phone]. SIGNATURE: Emmy Montilla RN PATIENT NAME: Carolynn Givens DATE: January 02, 2024 TIME: 9:47 AM CONTACT #: [facility] 01-02-2024 Note HNO ID: [id number] Author: MACHO SALAZAR PA-C Service: Orthopaedic Surgery Author Type: Physician Devops Engineer Type: Progress Notes Filed: 01/02/2024 12:57 Note Text: ORTHOPAEDIC POSTOP PROGRESS NOTE SERVICE DATE: 01/02/2024 SERVICE TIME: 8:38 AM Interval HPI: naeon, complaint of moderate thigh pain, muscle spasm, otherwise no acute complaint. Denies n/v/f/c/cp/sob. VITAL SIGNS: BP 128/58 Pulse 79 Temp 36.5 ?C (97.7 ?F) (Oral) Resp 16 Ht 162.6 cm (5' 4 ) Wt 103.9 kg (229 lb) SpO2 94% BMI 39.31 kg/m? INTAKE AND OUTPUT: Intake/Output Summary (Last 24 hours) at 01/02/2024 0838 Last data filed at 01/02/2024 0700 Gross per 24 hour Intake 3235 ml Output 1500 ml Net 1735 ml PHYSICAL EXAMINATION: Left Lower Extremity: Dorsalis pedis pulses palpable. Posterior tibial pulses palpable. Dorsi flexion 5/5. Plantar flexion 5/5. Extensor hallucis extension: 5/5. Sensory intact to light touch L1-S1. ROZINA wrap clean, dry, and intact. Surgical site no drainage and ROZINA wrap LABS: Recent Labs 01/02/24 0357 HB 13.6 HCT 40.1 DATA: Diagnostic tests reviewed for today's visit: Most recent labs and imaging results. Assessment/Plan S/P Procedure(s) (LRB): ARTHROPLASTY REPLACE JOINT TOTAL KNEE JOÃO/EX STAY (Right) on 01/01/2024 POSTOP PLAN: PT/OT evaluation - appreciate rec's DVT prophylaxis: SCDs and continue home Plavix, ASA Pain control - continue current, add prn Robaxin -will check US DVT to rule out blood clot in setting of worsened LE pain and hx Factor V Case Management for discharge planning Patient is surgically stable for discharge pending PT/OT clearance Medication and Non-Pharmacologic VTE Prophylaxis/Anticoagulants Anticoagulant AND Antiplatelet Medications (From admission, onward) Start Dose Route Frequency Last Action Ordered Stop 01/02/24 0900 clopidogrel 75 mg tab(s) (PLAVIX) 75 mg ORAL DAILY Ordered 01/01/24 1647 -- 01/02/24 0900 aspirin, enteric coated 81 mg tab(s) 81 mg ORAL DAILY Ordered 01/01/24 1647 -- 01/01/24 1700 vte current anticoag therapy ([place]) 01/01/24 170 pneumatic compression stockings ([place] 01/01/24 1700 activity - mobilize patient ([place]) I spent a total of 35 minutes on the date of the service which included preparing to see the patient, [id number] patient care, completing clinical documentation, obtaining and/or reviewing separately obtained history, and performing a medically appropriate examination. SIGNATURE: Macho Salazar PA-C PATIENT NAME: Carolynn Givens DATE: January 02, 2024 TIME: 8:38 AM [facility] 01-01-2024 Note HNO ID: [id number] Author: QUINN SALAZAR MD Service: Anesthesiology Author Type: Anesthesiologist Type: Anesthesia Procedure Notes Filed: 01/01/2024 18:58 Note Text: ANESTHESIOLOGY PROCEDURE NOTE Peripheral Nerve Block General Information Procedure Start Time/Medication Administration: 01/01/2024 1:30 PM Procedure End time: 01/01/2024 1:32 PM Patient location during procedure: OR Timeout Performed Pre-procedure: timeout performed Consent Obtained: Yes Patient identity confirmed: arm band, care outreach team member and patient sedated or unresponsive Reason for block: post-op pain management/at surgeon's request Staffing Anesthesiologist: Quinn Salazar MD Performed by: anesthesiologist Preparation Sterility Preparation: hand hygiene performed prior to procedure, surgical cap used, mask used, sterile drape used during line insertion, skin prep agent completely dried prior to procedure Site Prep: Chloraprep Pre-Procedure Neuro Exam Location: RLE Sensory: sensory deficit Motor: pre-existing condition Procedure Details Patient Position: supine Monitoring: Pulse OX, EKG and NIBP Block Type Lower Extremity: distal femoral (adductor canal) Laterality: right Injection Technique: single-shot Ultrasound Guided: Yes Image in Chart: yes Local Infiltration: Yes Needle Needle Type: echogenic Needle Gauge: 22 G Needle Length: 100 mm Needle Localization: ultrasound Assessment Injection assessment: negative aspiration, no paresthesia on injection, incremental injection and local visualized surrounding nerve on ultrasound Post-Procedure Neuro Exam Expected Regional Anesthesia: Yes Medications Administered dexamethasone sodium phosphate injection (DECADRON) - peripheral nerve block 10 mg - 01/01/2024 1:30:00 PM ropivacaine (PF) 5 mg/mL (0.5 %) injection (NAROPIN) - peripheral nerve block 30 mL - 01/01/2024 1:30:00 PM SIGNATURE: Quinn Salazar MD PATIENT NAME: Carolynn Givens DATE: January 01, 2024 TIME: 6:57 PM CSN: [id number] [facility] 01-01-2024 Note HNO ID: [id number] Author: PETRA HOWE APRN.SMALL W[employer] ENERGY INSTALLER Service: ? Author Type: Nurse Immigration Case Worker Type: Anesthesia Procedure Notes Filed: 01/01/2024 13:31 Note Text: ANESTHESIOLOGY PROCEDURE NOTE Spinal Block General Information Procedure Start Time/Medication Administration: 01/01/2024 1:16 PM Procedure End time: 01/01/2024 1:16 PM Patient location during procedure: OR Timeout Performed Pre-procedure: timeout performed Consent Obtained: Yes Patient identity confirmed: arm band and patient Reason for Block: primary surgical anesthetic Staffing SMALL WIND ENERGY INSTALLER: Petra Howe APRN.SM[employer]ERGY INSTALLER Performed by: SMALL WIND ENERGY INSTALLER Preparation Sterility Preparation: hand hygiene performed prior to procedure, surgical cap used, mask used, sterile drape used during line insertion, skin prep agent completely dried prior to procedure Site Prep: Duraprep Procedure Details Patient Position: sitting Monitoring: Pulse Ox and NIBP Approach: Midline Location: L3-4 Injection Technique: single-shot Needle Needle Type: pencil-tip Needle Gauge: 25 G Needle Length: 3.5 in CSF: adequate CSF flow from spinal needle Assessment Events: tolerated well Medications Administered bupivacaine-dextrose 0.75 % (7.5 mg/mL) injection (SENSORCAINE MPF SPINAL) - INTRASPINAL 1.6 mL - 01/01/2024 1:16:00 PM SIGNATURE: Petra Howe APRN.CRNA PATIENT NAME: Carolynn Givens DATE: January 01, 2024 TIME: 1:31 PM CSN: [id number] [facility] 12-11-2023 Telephone encounter Note error [facility] 12-11-2023 Miscellaneous Notes error documented in this encounter [facility] 12-11-2023 History and physical note Images from the original note were not included. [facility] HISTORY AND PHYSICAL EXAMINATION SERVICE DATE: 12/11/2023 SERVICE TIME: 2:03 PM PRIMARY CARE PHYSICIAN: Brooks Calixto, Assessment 1. Pre-op exam Surgery 01/01/2024 - COMPLETE BLOOD COUNT; Future - BASIC METABOLIC PANEL; Future - mupirocin (BACTROBAN) 2 % ointment; two times a day for 5 days. Apply 0.5 inch with cotton swab (Q-tip) to each nostril in the morning and evening for 5 days prior to and including day of surgery. Dispense: 22 g; Refill: 0 - HEMOGLOBIN A1C; Future 2. History of CVA (cerebrovascular accident) Had CVA with trouble finding words 28 days postop from right carotid endarterectomy. Still has trouble finding words at times. On plavix and ASA. Reports plavix given to her through her PCP Dr. Calixto. Fax sent for recommendations 3. Bilateral carotid artery stenosis Has chronic left internal carotid occlusion. Had right carotid endarterectomy in 2016. Has less than 50% stenosis in right carotid on US 10/2022. Follows vascular with last OV 11/18/23 with follow up in one year. 4. Primary hypertension Bp in office 140/84 continue hydrochlorothiazide (Hydrodiuril, Esidrix), bisoprolol-hydrochlorothiazide (Ziac) Last 14 Encounter BP Readings: Date: BP: 12/11/2023 140/84 - BASIC METABOLIC PANEL; Future 5. Hypothyroidism, unspecified type Continue levothyroxine (Synthroid) 6. Obesity, Class II, BMI 35-39.9 Body mass index is 38.15 kg/m . On Ozempic on Sundays. Advised to hold one week prior to surgery. Last dose 12/22/23 7. Prediabetes A1C to be completed today. On ozempic. - HEMOGLOBIN A1C; Future 8. Factor V Leiden (HCC) Denies any personal history of blood clots in the past. She had a brother had a stroke after a TKA and is worried about this. 9. Murmur Patient was told she has a murmur by Dr. Calixto 07/23/23 and an echocardiogram was ordered. She does not remember being told she had a murmur at the time. Murmur again appreciated on exam today. Encouraged patient to complete echo vijaya. As patient works at [employer] she will schedule and complete it there. 10. YUAN Compliant with cpap Monreal Activity Status Index: METS: Walk indoors, such as around the house (1.75 METs) Do light work around the house, such as dusting or washing dishes (2.70 METs) Take care of self; that is eating, dressing, bathing, using the toilet (2.75 METs) Walk a block or two on level ground (2.75 METs) Do moderate work around the house, such as vacuuming, sweeping floors, or carrying in groceries (3.50 METs) Climb a flight of stairs or walk up a hill (5.50 METs) DASI Score: 18.95 (Swimming stretching 4 days 1 hour) Patient denies any chest pain or undue shortness of breath with the above physical activity. STOP-Bang Score: STOP-Bang Score: 0 (Uses cpap ) ANESTHESIA FINDINGS: Intubation History: No history of difficult intubation Significant Anesthesia Considerations: none Airway History: No history of difficult airway I - PHYSICAL EVALUATION AIRWAY Patient intubated: No. Tracheostomy tube not present Mallampati: III. TM distance: >3 FB. Neck ROM: limited extension. Mouth opening: non-adequate. Short neck: no. Thick neck: no Lip Bite Test: I Microretrognathia/Micronagthia/Re cessed Chin: No DENTAL Normal dental observations. Dental findings: teeth intact. II - ANESTHESIA PLAN Beta Nabeel Monitoring Plan Post Procedure Analgesic Plan REASON FOR VISIT: Caroylnn Givens is a 63 year old female who is scheduled for Right - ARTHROPLASTY REPLACE JOINT TOTAL KNEE JOÃO/EX STAY at the request of Dr. Jorge L Hatch for consultation. My final recommendation will be communicated back to the requesting physician by way of shared medical record or letter. CHIEF COMPLAINT: knee pain HPI: Patient is a 63 year old female presenting for pre-anesthesia consultation. Patient has been having right knee pain since 2020. This pain has gotten worse over time. She has pain mostly in the front of the knee but sometimes in the back as well. No radiation of pain down the leg. Aggravating factors include bending the knee. Alleviating factors include ice, brace. Denies any previous injuries or surgeries to the right knee in the past. Patient has been recommended for above surgery. Subjective ACTIVE PROBLEM LIST Stenosis of Right Carotid Artery Hypothyroidism Primary Hypertension Obesity, Class II, Bmi 35-39.9 Prediabetes History of Cva (Cerebrovascular Accident) Factor V Leiden (Hcc) Murmur Yuan (Obstructive Sleep Apnea) Covid Immunization Dates Overdue - Covid-19 Vaccine () Overdue since 10/20/2023 01/06/2021 Imm Admin: COVID-19 original vaccine, full dose, monovalent (MODERNA) 03/31/2020 Imm Admin: COVID-19 original vaccine, full dose, monovalent (MODERNA) 03/03/2020 Imm Admin: COVID-19 original vaccine, full dose, monovalent (MODERNA) REVIEW OF SYSTEMS: PAIN ASSESSMENT: General: No weight loss, malaise or fevers. Neuro:+CVA 2015 , Denies strokes, seizures, lightheadedness, dizziness, syncope, headaches. Respiratory: No history of current cough or dyspnea, or pneumonia in the past 6 weeks. No history of respiratory/pulmonary symptoms or problems. Cardiovascular:+carotid stenosis, htn, hld Negative for Recent NE, Angina, Arrhythmia, CAD, Chest Pain GI: No history of GI symptoms or problems. No history of esophageal varices, recent ascites, or ETOH greater than 2 drinks per day. : No history of dysuria, frequency or incontinence,, stones or chronic kidney disease Endocrine: Hypothyroidism Hematology:+factor V, plavix, ASA Oncology: No history of CA metastasis, chemo within 30 days, or radiotherapy within 90 days. Has not lost 10% of body wt in 6 months. No history of oncological symptoms or problems. Psych: No history of psychiatric symptoms or problems. Musculoskeletal: See HPI Skin: Negative for lesions, rash and itching. History reviewed. No pertinent past medical history. PAST SURGICAL HISTORY Procedure Laterality Date CAROTID ENDARTERECTOMY Right 2016 REVISE MEDIAN N/CARPAL TUNNEL SURG Right THYROIDECTOMY TOTAL/COMPLETE age 9 FAMILY HISTORY Problem Relation Age of Onset Colon Cancer Mother Factor 5 Leiden Mother Factor 5 Leiden Father Carotid Disease Father Social History Tobacco Use Smoking status: Never Smokeless tobacco: Never Substance Use Topics Alcohol use: Not Currently Comment: socialy Drug use: Never MEDICATIONS: Prior to Admission medications as of 12/11/23 1403 Medication Sig Last Dose Taking acyclovir (ZOVIRAX) 400 mg tablet Taking Yes baclofen 10 mg tablet Taking Yes hydroCHLOROthiazide 25 mg tablet 25 mg. Taking Yes Cinnamon Bark 500 mg cap Take 500 mg by mouth. Taking Yes clopidogrel (PLAVIX) 75 mg tablet Taking Yes Coenzyme Q10 200 mg cap Take 1 capsule by mouth. Taking Yes diclofenac (VOLTAREN) 1 % topical gel Apply 4 g to affected area. Taking Yes DULoxetine (CYMBALTA) 30 mg capsule Taking Yes furosemide (LASIX) 40 mg tablet Taking Yes KLOR-CON M10 10 mEq tablet Taking Yes Norman-3 Fatty Acids, FISH OIL, 360-1,200 mg cap Take 1 capsule by mouth. Taking Yes pregabalin (LYRICA) 300 mg capsule Taking Yes cholecalciferol, vitamin D3, (VITAMIN D3 ORAL) Take 125 mcg by mouth. Taking Yes Glucosamine Sulfate (GLUCOSAMINE) 500 mg tab Take 1 tablet by mouth two times a day. 1500 mg chondroitin sulfate 1200mg sodium Taking Yes acetaminophen (TYLENOL ARTHRITIS ORAL) Take by mouth. Taking Yes aspirin, enteric coated (ASPIRIN, ENTERIC COATED) 81 mg EC tablet Take 81 mg by mouth once daily. Taking Yes semaglutide (OZEMPIC) 0.25 mg or 0.5 mg(2 mg/1.5 mL) pen Inject 0.25 mg subcutaneously one time a week. Injections on Sundays Last injection as 12/08/2023 Taking Yes levothyroxine (SYNTHROID) 150 mcg tablet Take 150 mcg by mouth daily before breakfast. Taking Yes bisoprolol-hydrochlorothiazide (ZIAC) 5-6.25 mg per tablet Take 1 tablet by mouth once daily. Taking Yes atorvastatin (LIPITOR) 80 mg tablet Take 80 mg by mouth once daily. Taking Yes ALPRAZolam (XANAX) 0.25 mg tablet Take 0.25 mg by mouth at bedtime as needed. Taking Yes mupirocin (BACTROBAN) 2 % ointment two times a day for 5 days. Apply 0.5 inch with cotton swab (Q-tip) to each nostril in the morning and evening for 5 days prior to and including day of surgery. No medication comments found. CURRENT ALLERGIES: ALLERGIES Allergen Reactions Penicillins Anaphylaxis Sulfa (Sulfonamide * Hives Objective PHYSICAL EXAM: VITALS: BP 140/84 Pulse 77 Temp (Src) 97.3 (Temporal) Resp 18 Ht 5' 5 (1.65m) Wt 229 lb 4.5 oz (104.0kg) SpO2 97% BMI 38.15 kg/(m^2). General: Alert and oriented, No acute distress, Obese Skin: Normal color, no rash, no lesions. HEENT: EOM, pupils equal, round and reactive. Cardiovascular: Pulse regular. 2/6 mid systolic medium pitched blowing murmur URSB and ULSB No radiation to carotids. Very distant left carotid flow Lungs: Normal breath sounds, no wheezes or crackles. Abdomen: Soft, non-tender, no rigidity., Positive bowel sounds Extremities: No deformity, no edema or tenderness, no joint swelling or clubbing. Neurological: Normal cognition and motor skills. Pulses: Carotid and radial pulses normal +2. Diagnostic tests reviewed for today's visit: Lab Value Units Date High Low HB No results within date range. HCT No results within date range. WBC No results within date range. PLT No results within date range. NA No results within date range. K No results within date range. GLUC No results within date range. BUN No results within date range. CREAT No results within date range. PTSEC No results within date range. INR No results within date range. APTT No results within date range. ALT No results within date range. AST No results within date range. TBILI No results within date range. TSH No results within date range. Lab Value Units Date High Low HCGQT No results within date range. UHCG No results within date range. HCG, BODY* No results within date range. Lab Value Units Date High Low ABORHD No results within date range. ABSCREEN No results within date range. No results found for: HBA1C EKG 07/23/23 scanned into [facility] US carotids 09/25/23 found in care everywhere CONCLUSIONS: Right Carotid: Findings are consistent with [...] with study from 10/19/2022, no significant change. Prepared for Surgery: optimally prepared for surgery pending LABS., echo, plavix recommendations CONSULTS: The following consults have been initiated at this time: Fax sent to Dr. Calixto regarding plavix. Per Dr. Salazar vascular, last OV 11/18/23 IMPRESSION: Ms. Givens is a 63 year old female with chronic L ICA occlusion. Mild R carotid stenosis several years after R CEA. OK to proceed with knee surgery as needed. RTC one year with me with repeat carotid duplex. Planned Anesthetic: anesthesia choice The Following Tests/Procedures Have Been Initiated: Orders Placed This Encounter CBC Standing Status: Future Standing Expiration Date: 03/11/2024 BMP Standing Status: Future Standing Expiration Date: 03/11/2024 Hemoglobin A1C Standing Status: Future Standing Expiration Date: 03/11/2024 CONSULT TO PENICILLIN ALLERGY Order Specific Question: Does consulting provider have [facility] Epic access? Answer: Yes Confirm Blood Type Standing Status: Future Standing Expiration Date: 03/11/2024 Order Specific Question: Did Blood Bank direct you to place this order: Answer: No - Presurgical Workflow Type and Screen, 30 day Standing Status: Future Standing Expiration Date: 03/11/2024 Scheduling Instructions: A 30-day Type and Screen test has been ordered for you. This should be scheduled to be collected no earlier than 29 days before your scheduled procedure. If you receive blood products (red blood cells, platelets, plasma, cryoprecipitate) at any point before your procedure or are a female and become , please inform your provider. This test will be canceled, and a standard type and screen will need to be ordered to be collected within 3 days of your procedure. Order Specific Question: [facility] Planned Surgery or Procedure: Answer: Jordana Order Specific Question: Status of surgery/procedure: Answer: Scheduled Order Specific Question: Date of surgery/procedure: Answer: 01/01/2024 acyclovir (ZOVIRAX) 400 mg tablet baclofen 10 mg tablet hydroCHLOROthiazide 25 mg tablet Si mg. Cinnamon Bark 500 mg cap Sig: Take 500 mg by mouth. clopidogrel (PLAVIX) 75 mg tablet Coenzyme Q10 200 mg cap Sig: Take 1 capsule by mouth. diclofenac (VOLTAREN) 1 % topical gel Sig: Apply 4 g to affected area. DULoxetine (CYMBALTA) 30 mg capsule furosemide (LASIX) 40 mg tablet KLOR-CON M10 10 mEq tablet Norman-3 Fatty Acids, FISH OIL, 360-1,200 mg cap Sig: Take 1 capsule by mouth. pregabalin (LYRICA) 300 mg capsule mupirocin (BACTROBAN) 2 % ointment Sig: two times a day for 5 days. Apply 0.5 inch with cotton swab (Q-tip) to each nostril in the morning and evening for 5 days prior to and including day of surgery. Dispense: 22 g Refill: 0 cholecalciferol, vitamin D3, (VITAMIN D3 ORAL) Sig: Take 125 mcg by mouth. Glucosamine Sulfate (GLUCOSAMINE) 500 mg tab Sig: Take 1 tablet by mouth two times a day. 1500 mg chondroitin sulfate 1200mg sodium acetaminophen (TYLENOL ARTHRITIS ORAL) Sig: Take by mouth. , EKG not indicated per [facility] protocol Instructions Given to Patient: Instructions located in the after visit summary. Patient given verbal and written preop instructions and voices comprehension and compliance. SIGNATURE: Pacheco Villela PA-C PATIENT NAME: Carolynn Givens DATE: 12/11/2023 TIME: 2:51 PM PAGER/CONTACT #: [facility] 12-11-2023 History and physical note Images from the original note were not included. [facility] HISTORY AND PHYSICAL EXAMINATION SERVICE DATE: 12/11/2023 SERVICE TIME: 2:03 PM PRIMARY CARE PHYSICIAN: Brooks Calixto DO Assessment 1. Pre-op exam Surgery 01/01/2024 - COMPLETE BLOOD COUNT; Future - BASIC METABOLIC PANEL; Future - mupirocin (BACTROBAN) 2 % ointment; two times a day for 5 days. Apply 0.5 inch with cotton swab (Q-tip) to each nostril in the morning and evening for 5 days prior to and including day of surgery. Dispense: 22 g; Refill: 0 - HEMOGLOBIN A1C; Future 2. History of CVA (cerebrovascular accident) Had CVA with trouble finding words 28 days postop from right carotid endarterectomy. Still has trouble finding words at times. On plavix and ASA. Reports plavix given to her through her PCP Dr. Calixto. Fax sent for recommendations 3. Bilateral carotid artery stenosis Has chronic left internal carotid occlusion. Had right carotid endarterectomy in 2016. Has less than 50% stenosis in right carotid on US 10/2022. Follows vascular with last OV 11/18/23 with follow up in one year. 4. Primary hypertension Bp in office 140/84 continue hydrochlorothiazide (Hydrodiuril, Esidrix), bisoprolol-hydrochlorothiazide (Ziac) Last 14 Encounter BP Readings: Date: BP: 12/11/2023 140/84 - BASIC METABOLIC PANEL; Future 5. Hypothyroidism, unspecified type Continue levothyroxine (Synthroid) 6. Obesity, Class II, BMI 35-39.9 Body mass index is 38.15 kg/m . On Ozempic on Sundays. Advised to hold one week prior to surgery. Last dose 12/22/23 7. Prediabetes A1C to be completed today. On ozempic. - HEMOGLOBIN A1C; Future 8. Factor V Leiden (HCC) Denies any personal history of blood clots in the past. She had a brother had a stroke after a TKA and is worried about this. 9. Murmur Patient was told she has a murmur by Dr. Calixto 07/23/23 and an echocardiogram was ordered. She does not remember being told she had a murmur at the time. Murmur again appreciated on exam today. Encouraged patient to complete echo vijaya. As patient works at [employer] she will schedule and complete it there. 10. YUAN Compliant with cpap Monreal Activity Status Index: METS: Walk indoors, such as around the house (1.75 METs) Do light work around the house, such as dusting or washing dishes (2.70 METs) Take care of self; that is eating, dressing, bathing, using the toilet (2.75 METs) Walk a block or two on level ground (2.75 METs) Do moderate work around the house, such as vacuuming, sweeping floors, or carrying in groceries (3.50 METs) Climb a flight of stairs or walk up a hill (5.50 METs) DASI Score: 18.95 (Swimming stretching 4 days 1 hour) Patient denies any chest pain or undue shortness of breath with the above physical activity. STOP-Bang Score: STOP-Bang Score: 0 (Uses cpap ) ANESTHESIA FINDINGS: Intubation History: No history of difficult intubation Significant Anesthesia Considerations: none Airway History: No history of difficult airway I - PHYSICAL EVALUATION AIRWAY Patient intubated: No. Tracheostomy tube not present Mallampati: III. TM distance: >3 FB. Neck ROM: limited extension. Mouth opening: non-adequate. Short neck: no. Thick neck: no Lip Bite Test: I Microretrognathia/Micronagthia/Re cessed Chin: No DENTAL Normal dental observations. Dental findings: teeth intact. II - ANESTHESIA PLAN Beta Nabeel Monitoring Plan Post Procedure Analgesic Plan REASON FOR VISIT: Carolynn Givens is a 63 year old female who is scheduled for Right - ARTHROPLASTY REPLACE JOINT TOTAL KNEE JOÃO/EX STAY at the request of Dr. Jorge L Hatch for consultation. My final recommendation will be communicated back to the requesting physician by way of shared medical record or letter. CHIEF COMPLAINT: knee pain HPI: Patient is a 63 year old female presenting for pre-anesthesia consultation. Patient has been having right knee pain since 2020. This pain has gotten worse over time. She has pain mostly in the front of the knee but sometimes in the back as well. No radiation of pain down the leg. Aggravating factors include bending the knee. Alleviating factors include ice, brace. Denies any previous injuries or surgeries to the right knee in the past. Patient has been recommended for above surgery. Subjective ACTIVE PROBLEM LIST Stenosis of Right Carotid Artery Hypothyroidism Primary Hypertension Obesity, Class II, Bmi 35-39.9 Prediabetes History of Cva (Cerebrovascular Accident) Factor V Leiden (Hcc) Murmur Yuan (Obstructive Sleep Apnea) Covid Immunization Dates Overdue - Covid-19 Vaccine (2023- season) Overdue since 10/20/2023 01/06/2021 Imm Admin: COVID-19 original vaccine, full dose, monovalent (MODERNA) 03/31/2020 Imm Admin: COVID-19 original vaccine, full dose, monovalent (MODERNA) 03/03/2020 Imm Admin: COVID-19 original vaccine, full dose, monovalent (MODERNA) REVIEW OF SYSTEMS: PAIN ASSESSMENT: General: No weight loss, malaise or fevers. Neuro:+CVA 2015 , Denies strokes, seizures, lightheadedness, dizziness, syncope, headaches. Respiratory: No history of current cough or dyspnea, or pneumonia in the past 6 weeks. No history of respiratory/pulmonary symptoms or problems. Cardiovascular:+carotid stenosis, htn, hld Negative for Recent NE, Angina, Arrhythmia, CAD, Chest Pain GI: No history of GI symptoms or problems. No history of esophageal varices, recent ascites, or ETOH greater than 2 drinks per day. : No history of dysuria, frequency or incontinence,, stones or chronic kidney disease Endocrine: Hypothyroidism Hematology:+factor V, plavix, ASA Oncology: No history of CA metastasis, chemo within 30 days, or radiotherapy within 90 days. Has not lost 10% of body wt in 6 months. No history of oncological symptoms or problems. Psych: No history of psychiatric symptoms or problems. Musculoskeletal: See HPI Skin: Negative for lesions, rash and itching. History reviewed. No pertinent past medical history. PAST SURGICAL HISTORY Procedure Laterality Date CAROTID ENDARTERECTOMY Right 2016 REVISE MEDIAN N/CARPAL TUNNEL SURG Right THYROIDECTOMY TOTAL/COMPLETE age 9 FAMILY HISTORY Problem Relation Age of Onset Colon Cancer Mother Factor 5 Leiden Mother Factor 5 Leiden Father Carotid Disease Father Social History Tobacco Use Smoking status: Never Smokeless tobacco: Never Substance Use Topics Alcohol use: Not Currently Comment: socialy Drug use: Never MEDICATIONS: Prior to Admission medications as of 12/11/23 1403 Medication Sig Last Dose Taking acyclovir (ZOVIRAX) 400 mg tablet Taking Yes baclofen 10 mg tablet Taking Yes hydroCHLOROthiazide 25 mg tablet 25 mg. Taking Yes Cinnamon Bark 500 mg cap Take 500 mg by mouth. Taking Yes clopidogrel (PLAVIX) 75 mg tablet Taking Yes Coenzyme Q10 200 mg cap Take 1 capsule by mouth. Taking Yes diclofenac (VOLTAREN) 1 % topical gel Apply 4 g to affected area. Taking Yes DULoxetine (CYMBALTA) 30 mg capsule Taking Yes furosemide (LASIX) 40 mg tablet Taking Yes KLOR-CON M10 10 mEq tablet Taking Yes Norman-3 Fatty Acids, FISH OIL, 360-1,200 mg cap Take 1 capsule by mouth. Taking Yes pregabalin (LYRICA) 300 mg capsule Taking Yes cholecalciferol, vitamin D3, (VITAMIN D3 ORAL) Take 125 mcg by mouth. Taking Yes Glucosamine Sulfate (GLUCOSAMINE) 500 mg tab Take 1 tablet by mouth two times a day. 1500 mg chondroitin sulfate 1200mg sodium Taking Yes acetaminophen (TYLENOL ARTHRITIS ORAL) Take by mouth. Taking Yes aspirin, enteric coated (ASPIRIN, ENTERIC COATED) 81 mg EC tablet Take 81 mg by mouth once daily. Taking Yes semaglutide (OZEMPIC) 0.25 mg or 0.5 mg(2 mg/1.5 mL) pen Inject 0.25 mg subcutaneously one time a week. Injections on Sundays Last injection as 12/08/2023 Taking Yes levothyroxine (SYNTHROID) 150 mcg tablet Take 150 mcg by mouth daily before breakfast. Taking Yes bisoprolol-hydrochlorothiazide (ZIAC) 5-6.25 mg per tablet Take 1 tablet by mouth once daily. Taking Yes atorvastatin (LIPITOR) 80 mg tablet Take 80 mg by mouth once daily. Taking Yes ALPRAZolam (XANAX) 0.25 mg tablet Take 0.25 mg by mouth at bedtime as needed. Taking Yes mupirocin (BACTROBAN) 2 % ointment two times a day for 5 days. Apply 0.5 inch with cotton swab (Q-tip) to each nostril in the morning and evening for 5 days prior to and including day of surgery. No medication comments found. CURRENT ALLERGIES: ALLERGIES Allergen Reactions Penicillins Anaphylaxis Sulfa (Sulfonamide * Hives Objective PHYSICAL EXAM: VITALS: BP 140/84 Pulse 77 Temp (Src) 97.3 (Temporal) Resp 18 Ht 5' 5 (1.65m) Wt 229 lb 4.5 oz (104.0kg) SpO2 97% BMI 38.15 kg/(m^2). General: Alert and oriented, No acute distress, Obese Skin: Normal color, no rash, no lesions. HEENT: EOM, pupils equal, round and reactive. Cardiovascular: Pulse regular. 2/6 mid systolic medium pitched blowing murmur URSB and ULSB No radiation to carotids. Very distant left carotid flow Lungs: Normal breath sounds, no wheezes or crackles. Abdomen: Soft, non-tender, no rigidity., Positive bowel sounds Extremities: No deformity, no edema or tenderness, no joint swelling or clubbing. Neurological: Normal cognition and motor skills. Pulses: Carotid and radial pulses normal +2. Diagnostic tests reviewed for today's visit: Lab Value Units Date High Low HB No results within date range. HCT No results within date range. WBC No results within date range. PLT No results within date range. NA No results within date range. K No results within date range. GLUC No results within date range. BUN No results within date range. CREAT No results within date range. PTSEC No results within date range. INR No results within date range. APTT No results within date range. ALT No results within date range. AST No results within date range. TBILI No results within date range. TSH No results within date range. Lab Value Units Date High Low HCGQT No results within date range. UHCG No results within date range. HCG, BODY* No results within date range. Lab Value Units Date High Low ABORHD No results within date range. ABSCREEN No results within date range. No results found for: HBA1C EKG 07/23/23 scanned into [facility] US carotids 09/25/23 found in care everywhere CONCLUSIONS: Right Carotid: Findings are consistent with [...] with study from 10/19/2022, no significant change. Prepared for Surgery: optimally prepared for surgery pending LABS., echo, plavix recommendations CONSULTS: The following consults have been initiated at this time: Fax sent to Dr. Calixto regarding plavix. Per Dr. Salazar vascular, last OV 11/18/23 IMPRESSION: Ms. Givens is a 63 year old female with chronic L ICA occlusion. Mild R carotid stenosis several years after R CEA. OK to proceed with knee surgery as needed. RTC one year with me with repeat carotid duplex. Planned Anesthetic: anesthesia choice The Following Tests/Procedures Have Been Initiated: Orders Placed This Encounter CBC Standing Status: Future Standing Expiration Date: 03/11/2024 BMP Standing Status: Future Standing Expiration Date: 03/11/2024 Hemoglobin A1C Standing Status: Future Standing Expiration Date: 03/11/2024 CONSULT TO PENICILLIN ALLERGY Order Specific Question: Does consulting provider have [facility] Epic access? Answer: Yes Confirm Blood Type Standing Status: Future Standing Expiration Date: 03/11/2024 Order Specific Question: Did Blood Bank direct you to place this order: Answer: No - Presurgical Workflow Type and Screen, 30 day Standing Status: Future Standing Expiration Date: 03/11/2024 Scheduling Instructions: A 30-day Type and Screen test has been ordered for you. This should be scheduled to be collected no earlier than 29 days before your scheduled procedure. If you receive blood products (red blood cells, platelets, plasma, cryoprecipitate) at any point before your procedure or are a female and become , please inform your provider. This test will be canceled, and a standard type and screen will need to be ordered to be collected within 3 days of your procedure. Order Specific Question: [facility] of Planned Surgery or Procedure: Answer: [facility] Order Specific Question: Status of surgery/procedure: Answer: Scheduled Order Specific Question: Date of surgery/procedure: Answer: 01/01/2024 acyclovir (ZOVIRAX) 400 mg tablet baclofen 10 mg tablet hydroCHLOROthiazide 25 mg tablet Si mg. Cinnamon Bark 500 mg cap Sig: Take 500 mg by mouth. clopidogrel (PLAVIX) 75 mg tablet Coenzyme Q10 200 mg cap Sig: Take 1 capsule by mouth. diclofenac (VOLTAREN) 1 % topical gel Sig: Apply 4 g to affected area. DULoxetine (CYMBALTA) 30 mg capsule furosemide (LASIX) 40 mg tablet KLOR-CON M10 10 mEq tablet Norman-3 Fatty Acids, FISH OIL, 360-1,200 mg cap Sig: Take 1 capsule by mouth. pregabalin (LYRICA) 300 mg capsule mupirocin (BACTROBAN) 2 % ointment Sig: two times a day for 5 days. Apply 0.5 inch with cotton swab (Q-tip) to each nostril in the morning and evening for 5 days prior to and including day of surgery. Dispense: 22 g Refill: 0 cholecalciferol, vitamin D3, (VITAMIN D3 ORAL) Sig: Take 125 mcg by mouth. Glucosamine Sulfate (GLUCOSAMINE) 500 mg tab Sig: Take 1 tablet by mouth two times a day. 1500 mg chondroitin sulfate 1200mg sodium acetaminophen (TYLENOL ARTHRITIS ORAL) Sig: Take by mouth. , EKG not indicated per [facility] protocol Instructions Given to Patient: Instructions located in the after visit summary. Patient given verbal and written preop instructions and voices comprehension and compliance. SIGNATURE: Pacheco Villela PA-C PATIENT NAME: Carolynn Givens DATE: 12/11/2023 TIME: 2:51 PM PAGER/CONTACT #: documented in this encounter [facility] 12-11-2023 Instructions Pacheco Villela PA-C - 12/11/2023 8:07 AM EDT Images from the original note were not included. [facility] PATIENT PREOPERATIVE INSTRUCTIONS Jorge L Hatch, * has scheduled you for your procedure at this surgery center: [facility]: [phone] --[id number] [place] [address]. Please enter through the entrance closest to [facility]. Please read below carefully for your personalized instructions. Complete you echocardiogram at [facility] Arrival Time for Surgery: - The Surgery Center or hospital where you are having surgery will call the afternoon before surgery (or Saturday for Saturday surgery) with a scheduled arrival time. - If you have not heard by 4 pm, please contact the surgery center above. Please be aware that emergency situations arise, which may delay or change your surgical time. If this happens, we will notify you as soon as possible and regret any inconvenience. Dietary Restrictions: - No solid food after midnight. - You may have 12 ounces of clear liquids (water, clear juices such as apple juice or gatorade, carbonated beverages, clear tea, black coffee, jello) until 2 hours before scheduled arrival at facility. Medications: Unless instructed differently below, stay on all of your medications until your surgery. Approved medications to take the morning of surgery with a sip of water: levothyroxine (Synthroid), bisoprolol-hydrochlorothiazide (Ziac) Do not use Ozempic for one week prior to surgery. Last dose 12/22/23. If you start any new medications after today's visit, please contact the surgeon's office. Blood Thinning Medications: - Stop NSAIDS (Ibuprofen, Advil, Aleve, Motrin, Celebrex, Mobic, etc.) 7 days before surgery, as directed by your surgeon. - Do NOT stop aspirin or other anticoagulants without consulting with your manager transfusion or prescribing physician. - Stop Vitamin E, ALL multi-vitamins, herbals and dietary supplements 7 days before surgery. - You may take Tylenol (Acetaminophen) or any of your pain medications that do not contain aspirin or NSAIDS as needed. Important Reminders: - Use nasal ointment for 5 days before and day of surgery in both nostril 2 times per day. - Candy, mints, and tobacco products are NOT permitted the morning of surgery. - Hearing aids and glasses may be worn the morning of surgery. - You may wear partials and dentures morning of surgery, but you may be asked to remove them prior to your procedure. - NO jewelry, body piercings, makeup, hairpins or contacts are to be worn the day of surgery. If you develop symptoms such as a fever, cold, or flu, or have other changes to your health within TWO DAYS of scheduled surgery or the morning of surgery, please contact the surgery center above. Personal Belongings: -Please have photo ID and insurance cards. -If you do not have a copy of advance directives on file with us, please bring a copy with you on the day of surgery. - Leave ALL valuables and money at home or with family members. For Outpatient Procedures: - YOU MUST HAVE A RESPONSIBLE ELECTRICAL ACCESSORIES ASSEMBLER TAKE YOU HOME. A SOFTWARE SUPPORT ANALYST OR TANNERY GUMMER CANNOT BE MADE A RESPONSIBLE ELECTRICAL ACCESSORIES ASSEMBLER. - We recommend that a responsible person stays with you overnight to take care of you. - You cannot stay in a hotel alone after outpatient surgery. You will not be permitted to have your surgery, if you do not have someone to take care of you. If you already have an Advance Directive, please fax a copy to [phone] or email to [email or web address] for it to be added to your chart. If you do not have an Advance Directive, you can find the appropriate form and more information at [email or web address]. We recommend that you complete the Advance Directive form found on the website and bring it with you the day of your surgery. It can be witnessed and scanned into your chart that day. Pacheco Villela PA-C documented in this encounter [facility] 11-18-2023 Note HNO ID: [id number] Author: RIZWANA SALAZAR MD Service: ? Author Type: Physician Type: Progress Notes Filed: 11/18/2023 15:55 Note Text: [facility] V[facility] [place] DEPARTMENT OF VASCULAR SURGERY OUTPATIENT VISIT DATE November 18, 2023 OUTPATIENT VISIT TYPE CONSULTATION SERVICE DATE: 11/18/2023 SERVICE TIME: 9:53 AM PRIMARY CARE PHYSICIAN: Dr Bob Calixto (DANIEL Gibbons) REFERRING PROVIDER: Self Consult requested for an opinion regarding the evaluation and treatment of the above. My final impression and recommendations will be communicated back to the requesting physician by way of the shared medical record or letter via US mail. CHIEF COMPLAINT: Carotid stenosis HISTORY OF PRESENT ILLNESS: Vascular consultation at the request of . A copy of this consultation note will be provided to the requesting physician by way of shared Medical record or letter to requesting physician via US mail. Ms. Givens is a 63 year old female who is seen today for carotid disease. She is s/p R CEA several years ago. She has chronic L ICA occlusion. She has B knee arthritis and needs B knee replacements by her account. She has no TIA, amaurosis or stroke symptoms. She is a never smoker. No past medical history on file. No past surgical history on file. SOCIAL HISTORY: Social History Tobacco Use Smoking status: Never Smokeless tobacco: Never No family history on file. MEDICATIONS: aspirin, enteric coated (ASPIRIN, ENTERIC COATED) 81 mg EC tablet Take 81 mg by mouth once daily. levothyroxine (SYNTHROID) 150 mcg tablet Take 150 mcg by mouth daily before breakfast. bisoprolol-hydrochlorothiazide (ZIAC) 5-6.25 mg per tablet Take 1 tablet by mouth once daily. atorvastatin (LIPITOR) 80 mg tablet Take 80 mg by mouth once daily. semaglutide (OZEMPIC) 0.25 mg or 0.5 mg(2 mg/1.5 mL) pen Inject 0.25 mg subcutaneously one time a week. metFORMIN (GLUCOPHAGE) 500 mg tablet Take 500 mg by mouth twice daily with meals. (Patient not taking: Reported on 11/18/2023) ALPRAZolam (XANAX) 0.25 mg tablet Take 0.25 mg by mouth at bedtime as needed. aspirin, enteric coated (ASPIRIN, ENTERIC COATED) 325 mg EC tablet Take 325 mg by mouth once daily. (Patient not taking: Reported on 11/18/2023) ALLERGIES: ALLERGIES Allergen Reactions Penicillins Anaphylaxis Sulfa (Sulfonamide * Hives REVIEW OF SYSTEM: Constitutional: No weight loss, malaise or fevers. HEENT: Negative for frequent or significant headaches Respiratory: Negative for cough, wheezing, or shortness of breath Cardiovascular: Negative for chest pain, leg swelling or palpitations Gatrointestinal: Negative for abdominal discomfort, blood in stools or black stools or change in bowel habits Genitourinary: No history of dysuria, frequency, or incontinence Musculoskeletal: Negative for joint pain or swelling, back pain or muscle pain Endocrine: Negative for cold or heat intolerance, polyuria, polydipsia and goiter Hematology/Lymphatic: Negative for prolonged bleeding, bruising easily or swollen nodes Neurologic: No history or headaches, syncope, paralysis, seizures or tremors Integumentary: Negative for lesions, rash, and itching. PHYSICAL EXAM: VITALS: There were no vitals taken for this visit. General: Alert and oriented, No acute distress, Obese Integumentary: Normal color, no rash, no lesions. HEENT: EOM, pupils equal, round and reactive., No carotid bruits Cardiovascular: Pulse regular. Extremities: No edema. Neurological: Normal cognition and motor skills. Gait normal. No weakness or sensory deficit. Fluent speech. Vascular: Normal pedal pulses B. Diagnostic tests reviewed for today's visit: CAROTID BILATERAL Order: [id number] Narrative [facility] [id number] [facility]. [place] [id number] Vascular Lab Report [facility] US CAROTID ARTERY DUPLEX BILATERAL Patient Name: CAROLYNN GIVENS Reading Physician: [id number] Eddie Marie MD Study Date: 09/25/2023 Ordering Provider: [id number] JACK BARBOSA MRN/PID: [id number] Fellow: Technologist: Carolynn Olvera RVT, RDMS Date of /Age: 405/25/1960 / 63 years Technologist 2: Gender: F Admission Status: Outpatient Location Performed: [facility] Diagnosis/ICD: Occlusion and stenosis of bilateral carotid arteries-I65.23 Indication: Carotid Occlusion/Stenosis w/o infarct CPT Codes: 86009 Cerebrovascular Carotid Duplex scan complete Pertinent History: Carotid surgery. RIGHT CEA. CONCLUSIONS: Right Carotid: Findings are consistent with less than 50% stenosis of the right proximal internal carotid artery. Laminar flow seen by color Doppler. Right external carotid artery appears patent with no evidence of stenosis. No evidence of hemodynamically significant stenosis of the right common carotid artery. The right vertebral artery is jarrett (more content not included)... [facility] 11-18-2023 History of Present illness Narrative Images from the original note were not included. Heart , V[facility] Thor[facility] [place] DEPARTMENT OF VASCULAR SURGERY OUTPATIENT VISIT DATE November 18, 2023 OUTPATIENT VISIT TYPE CONSULTATION SERVICE DATE: 11/18/2023 SERVICE TIME: 9:53 AM PRIMARY CARE PHYSICIAN: Dr Bob Calixto (DANIEL Felicianoy) REFERRING PROVIDER: Self Consult requested for an opinion regarding the evaluation and treatment of the above. My final impression and recommendations will be communicated back to the requesting physician by way of the shared medical record or letter via US mail. CHIEF COMPLAINT: Carotid stenosis HISTORY OF PRESENT ILLNESS: Vascular consultation at the request of . A copy of this consultation note will be provided to the requesting physician by way of shared Medical record or letter to requesting physician via US mail. Ms. Givens is a 63 year old female who is seen today for carotid disease. She is s/p R CEA several years ago. She has chronic L ICA occlusion. She has B knee arthritis and needs B knee replacements by her account. She has no TIA, amaurosis or stroke symptoms. She is a never smoker. No past medical history on file. No past surgical history on file. SOCIAL HISTORY: Social History Tobacco Use Smoking status: Never Smokeless tobacco: Never No family history on file. MEDICATIONS: aspirin, enteric coated (ASPIRIN, ENTERIC COATED) 81 mg EC tablet Take 81 mg by mouth once daily. levothyroxine (SYNTHROID) 150 mcg tablet Take 150 mcg by mouth daily before breakfast. bisoprolol-hydrochlorothiazide (ZIAC) 5-6.25 mg per tablet Take 1 tablet by mouth once daily. atorvastatin (LIPITOR) 80 mg tablet Take 80 mg by mouth once daily. semaglutide (OZEMPIC) 0.25 mg or 0.5 mg(2 mg/1.5 mL) pen Inject 0.25 mg subcutaneously one time a week. metFORMIN (GLUCOPHAGE) 500 mg tablet Take 500 mg by mouth twice daily with meals. (Patient not taking: Reported on 11/18/2023) ALPRAZolam (XANAX) 0.25 mg tablet Take 0.25 mg by mouth at bedtime as needed. aspirin, enteric coated (ASPIRIN, ENTERIC COATED) 325 mg EC tablet Take 325 mg by mouth once daily. (Patient not taking: Reported on 11/18/2023) ALLERGIES: ALLERGIES Allergen Reactions Penicillins Anaphylaxis Sulfa (Sulfonamide * Hives REVIEW OF SYSTEM: Constitutional: No weight loss, malaise or fevers. HEENT: Negative for frequent or significant headaches Respiratory: Negative for cough, wheezing, or shortness of breath Cardiovascular: Negative for chest pain, leg swelling or palpitations Gatrointestinal: Negative for abdominal discomfort, blood in stools or black stools or change in bowel habits Genitourinary: No history of dysuria, frequency, or incontinence Musculoskeletal: Negative for joint pain or swelling, back pain or muscle pain Endocrine: Negative for cold or heat intolerance, polyuria, polydipsia and goiter Hematology/Lymphatic: Negative for prolonged bleeding, bruising easily or swollen nodes Neurologic: No history or headaches, syncope, paralysis, seizures or tremors Integumentary: Negative for lesions, rash, and itching. PHYSICAL EXAM: VITALS: There were no vitals taken for this visit. General: Alert and oriented, No acute distress, Obese Integumentary: Normal color, no rash, no lesions. HEENT: EOM, pupils equal, round and reactive., No carotid bruits Cardiovascular: Pulse regular. Extremities: No edema. Neurological: Normal cognition and motor skills. Gait normal. No weakness or sensory deficit. Fluent speech. Vascular: Normal pedal pulses B. Diagnostic tests reviewed for today's visit: CAROTID BILATERAL Order: [id number] [facility] [address] [place] [address] Vascular Lab Report [facility] US CAROTID ARTERY DUPLEX BILATERAL Patient Name: CAROLYNN GIVENS Reading Physician: [id number] Marie MD Study Date: 09/25/2023 Ordering Provider: [id number] JACK BARBOSA MRN/PID: [id number] Fellow: Technologist: Carolynn Olvera Lena, [facility] Date of /Age: 405/25/1960 / 63 years Technologist 2: Gender: F Admission Status: Outpatient Location Performed: [facility] Diagnosis/ICD: Occlusion and stenosis of bilateral carotid arteries-I65.23 Indication: Carotid Occlusion/Stenosis w/o infarct CPT Codes: 95823 Cerebrovascular Carotid Duplex scan complete Pertinent History: [...] Proximal 140 cm/s Right ICA/CCA Ratio 2.1 [id number] Eddie Marie MD ESSION: Ms. Givens is a 63 year old female with chronic L ICA occlusion. Mild R carotid stenosis several years after R CEA. OK to proceed with knee surgery as needed. RTC one year with me with repeat carotid duplex. SIGNATURE: Rizwana Salazar MD PATIENT NAME: Carolynn Givens DATE: November 18, 2023 TIME: 9:53 AM documented in this encounter [facility] 11-13-2023 History of Present illness Narrative Images from the original note were not included. SUBJECTIVE: HPI: Carolynn Givens is a 63 y.o. female who presents with chief complaint of Follow-up Pt would like to discuss weight management. Pt would like OMM. Pt needs refill on Baclofen, Diclofenac sodium and duloxetine I have reviewed and reconciled the history and medication list with the patient today. Depression: Not at risk (07/18/2023) Received from [facility] PHQ-2 Patient Health Questionnaire-2 Score: 0 reports that she has never smoked. She has never used smokeless tobacco. She reports current alcohol use of about 2.0 standard drinks of alcohol per week. She reports that she does not use drugs. OBJECTIVE: 05/28/2022 12:00 PM 09/26/2022 1:45 PM 10/30/2022 8:27 AM 05/15/2023 1:35 PM 07/23/2023 12:14 PM 10/24/2023 7:48 AM 11/13/2023 11:54 AM Vitals BMI 40.42 kg/m2 36.58 kg/m2 36.58 kg/m2 33.28 kg/m2 33.28 kg/m2 33.28 kg/m2 33.28 kg/m2 BSA (m2) 2.09 m2 1.99 m2 1.99 m2 2.04 m2 2.04 m2 2.04 m2 2.04 m2 Systolic 130 124 128 130 126 Diastolic 84 76 76 72 70 Heart Rate 90 76 67 71 SpO2 98 % 96 % 96 % Temp 98 F 97.6 F 97.5 F 96.6 F Height (in) 5' 2 5' 2 5' 2 5' 5 5' 5 5' 5 5' 5 Weight (lb) 221 200 200 200 200 200 Visit Report Report Report Report Report Report Report Report Physical Exam Constitutional: General: She is not in acute distress. Appearance: She is not ill-appearing. HENT: Head: Normocephalic. Cardiovascular: Rate and Rhythm: Normal rate and regular rhythm. Heart sounds: Murmur (mild systolic) heard. Pulmonary: Effort: Pulmonary effort is normal. No respiratory distress. Breath sounds: Normal breath sounds. No wheezing, rhonchi or rales. Abdominal: General: Abdomen is flat. There is no distension. Tenderness: There is no abdominal tenderness. Musculoskeletal: General: No deformity. Normal range of motion. Cervical back: Normal range of motion. Right lower leg: Edema present. Left lower leg: Edema present. Comments: TART changes noted in lumbar, thoracic, pelvic, sacral regions Skin: General: Skin is warm and dry. Neurological: General: No focal deficit present. Mental Status: She is alert and oriented to person, place, and time. Psychiatric: Mood and Affect: Mood normal. Behavior: Behavior normal. Thought Content: Thought content normal. Judgment: Judgment normal. No results found for this or any previous visit (from the past 672 hour(s)). ASSESSMENT AND PLAN: Assessment/Plan Diagnoses and all orders for this visit: Chronic pain syndrome - baclofen (Lioresal) 10 MG tablet; Take 1 tablet (10 mg) by mouth in the morning and 1 tablet (10 mg) in the evening and 1 tablet (10 mg) before bedtime. - DULoxetine (Cymbalta) [address] capsule; Take 1 capsule (30 mg) by mouth Daily Do not crush or chew. Bilateral primary osteoarthritis of knee - diclofenac sodium 1 % gel; Apply 4 g topically in the morning and 4 g in the evening and 4 g before bedtime. Type 2 diabetes mellitus without complication, without long-term current use of insulin (CMS/HCC) - Semaglutide,0.25 or 0.5MG/DOS, (Ozempic, 0.25 or 0.5 MG/DOSE,) 2 MG/3ML solution pen-injector; Inject 0.25 mg under the skin 1 (one) time per week for 28 days, THEN 0.5 mg 1 (one) time per week for 14 days. 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 Patient Active Problem List Diagnosis Acquired hallux rigidus Anxiety Benign essential hypertension (CMS/HCC) Carotid stenosis, bilateral Elevated levels of transaminase & lactic acid dehydrogenase Factor V deficiency (CMS/HCC) History of stroke without residual deficits Hypothyroidism (CMS/HCC) Impaired fasting glucose Insomnia Left carotid artery occlusion Left sided sciatica Lumbago with sciatica, left side Lumbago with sciatica, right side Sciatica Lumbosacral spondylosis without myelopathy Mixed hyperlipidemia (CMS/HCC) Class 2 obesity Obstructive sleep apnea Ocular hypertension Other atrophic disorders of skin Posterior vitreous detachment of left eye Postoperative hypothyroidism (CMS/HCC) Prediabetes Past Medical History: Diagnosis Date Anxiety Atypical nevi Carotid artery stenosis Diabetes (CMS/HCC) Diabetes mellitus (CMS/HCC) Disease of thyroid gland (CMS/HCC) Hyperlipidemia (CMS/HCC) Hypertension (CMS/HCC) Hypothyroidism (CMS/HCC) post thyroidectomy Impaired fasting glucose Obesity YUAN (obstructive sleep apnea) Stroke ([facility]/HCC) 09/2015 hospitalized documented in this encounter [facility] 10-24-2023 History of Present illness Narrative Associated Order(s): L Inj/Asp: L knee Post-Procedure Diagnose(s): Primary osteoarthritis of both knees L Inj/Asp: L knee on 10/24/2023 8:25 AM Indications: pain Details: 22 G needle Medications: 1 mL betamethasone acetate-betamethasone sodium phosphate 6 (3-3) MG/ML Images from the original note were not included. Carolynn Givens is a 63 y.o. female presents with chief complaint of bilateral knee pain and osteoarthritis, right greater than left. HPI: Rayshawn is a 63-year-old white female who presents complaining of knee pain and difficulty. This has been going on for some time. The right is worse than the left. Of recent, she is really struggling. She is a very active outdoor person and really has had a hindrance because of this. Also has some ongoing back difficulty. She denies any numbness or tingling. No fever. She did have an injection in the right knee two days ago per Dr. Valenzuela. She is here seeking another opinion. She does have some medical comorbidities in the form of carotid artery disease as well as Factor V Leiden. She denies any recent treatment. She is on Plavix. SUBJECTIVE: MEDICATIONS: Current Outpatient Medications Medication Instructions acyclovir (ZOVIRAX) 400 mg, Oral, Daily ALPRAZolam (XANAX) 0.5 mg, Oral, Nightly PRN aspirin 81 mg, Oral, Once atorvastatin (LIPITOR) 80 mg, Oral, Nightly baclofen (Lioresal) 10 MG tablet TAKE 1/2 - 1 TABLET BY MOUTH THREE TIMES DAILY bisoprolol-hydroCHLOROthiazide (Ziac) 2.5-6.25 MG tablet TAKE 1 TABLET BY MOUTH EVERY DAY cinnamon 500 mg, Oral, Daily clopidogrel (Plavix) 75 MG tablet TAKE 1 TABLET BY MOUTH EVERY DAY coenzyme Q-10 200 MG capsule 1 capsule, Oral, Every 24 hours DULoxetine (Cymbalta) [address] capsule TAKE 1 CAPSULE BY MOUTH IN THE MORNING. DO NOT CRUSH OR CHEW. Elderberry 500 MG capsule 1 capsule, Oral, Daily furosemide (Lasix) 40 MG tablet TAKE 1 TABLET BY MOUTH DAILY NEEDED (LOWER EXTREMITY EDEMA) hydroCHLOROthiazide (HYDRODiuril) 25 MG tablet TAKE 1 TABLET BY MOUTH TWICE A DAY KLOR-CON 10 MEQ ER tablet TAKE 1 TABLET (10 MEQ) BY MOUTH DAILY NEEDED (ON DAYS WHEN LASIX IS TAKEN) DO NOT CRUSH OR CHEW. omega-3, EPA + DHA, (fish oil) 1000 MG capsule 1 capsule, Oral, Every 24 hours pregabalin (Lyrica) 300 MG capsule TAKE 1 CAPSULE (300 MG) BY MOUTH IN THE MORNING AND AT BEDTIME saccharomyces boulardii (FLORASTOR) 250 mg, Oral, 2 times daily Synthroid 125 mcg, Oral, Daily ALLERGIES: Allergies Allergen Reactions Penicillins Unknown Sulfa Antibiotics Unknown SURGICAL HISTORY: Past Surgical History: Procedure Laterality Date CARPAL TUNNEL RELEASE 2014 THROMBOENDARTERECTOMY 2016 carotid THYROIDECTOMY age 21 TUBAL LIGATION FAMILY HISTORY: Family History Problem Relation Name Age of Onset Melanoma Father No Known Problems Sister No Known Problems Brother Insomnia Daughter MASSIVE HIP SURGERIES Melanoma Other Diabetes Other Hypertension Other SOCIAL HISTORY: Social History Tobacco Use Smoking status: Never Smokeless tobacco: Never Vaping Use Vaping status: Never Used Substance Use Topics Alcohol use: Yes Alcohol/week: 2.0 standard drinks of alcohol Types: 2 Shots of liquor per week Drug use: Never Depression: Not at risk (07/18/2023) Received from [facility] PHQ-2 Patient Health Questionnaire-2 Score: 0 REVIEW OF SYMPTOMS: The review of systems, history and current medications list are all reviewed today. OBJECTIVE: Visit Vitals Ht 5' 5 Wt 200 lb BMI 33.28 kg/m OB Status Postmenopausal Smoking Status Never BSA 2.04 m Physical Exam Her orthopedic exam reveals no acute distress. She is pleasant, answers all questions appropriately. She does have rather rigid varus bilaterally with some crepitance. Left is a little bit worse than the right with regard to the crepitance. Tenderness is right along the medial compartment. Range of motion is 0-110-115 degrees. The knees are fully stable. Hips internal and external rotation is on the order of 35 and 40 degrees. This is symmetric bilaterally. No trochanteric tenderness. Examination of the x-ray AP bilateral weight bearing with right lateral total of two views with permanent images does show rather advanced osteoarthritis with essential bone on bone change medially. Varus. There is tricompartmental change overall. No evidence of fracture or other osseous abnormality. ASSESSMENT AND PLAN: Assessment/Plan Bilateral knee osteoarthritis with chronic anticoagulation. The findings are discussed. The treatment alternatives are outlined. We did discuss time constraint on surgery with corticosteroid injection. We will see how the right knee does. She does wish to inject the left. This is clinically indicated. She is injected with 1 cc of Betamethasone and 3 cc of 1% Lidocaine plain (6 mg of Betamethasone with 3 ml of 1% Lidocaine plain). She tolerated the injection well under sterile prep here today. We will see her back here only as needed. She does inquire about a February time frame for knee replacement. We did discuss the indications for the same. We will need preoperative risk assessment with her vascular team from either or the [facility] regarding her carotid artery disease. We did discuss limitations and being the problems themselves, but also a facility for surgery. She does voice understanding of this. We will do x-rays, lateral left knee as well as bilateral sunrise at her follow up. We did discuss some of the process. She is aware of this because of her going through it. We also gave her information on arch support. She will use some Voltaren gel as needed as well as Tylenol. Follow up letter sent to Dr. Calixto. documented in this encounter [facility] 10-23-2023 History of Present illness Narrative SUBJECTIVE: HPI: Carolynn Givens is a 63 y.o. female who presents with chief complaint of Muscle Pain HPI I have reviewed and reconciled the history and medication list with the patient today. Patient presents with chief complaint of neck and back pain with numbness in middle 3 fingers on L hand, has shown interest in OMM treatment. OBJECTIVE: Visit Vitals OB Status Postmenopausal Smoking Status Never Physical Exam: General: normal appearance, no distress Resp: breaths are regular, no distress MSK: TART changes noted in cervical, thoracic, lumbar, rib regions, C7 radiculopathy noted Neuro: no focal abnormalities No results found for this or any previous visit (from the past 672 hour(s)). ASSESSMENT AND PLAN: Assessment/Plan Diagnoses and all orders for this visit: C7 radiculopathy Somatic dysfunction of lumbar region Somatic dysfunction of pelvis region Somatic dysfunction of cervical region Somatic dysfunction of thoracic region Somatic dysfunction treated in all regions above with combination of FPR, SCS, direct inhibition, parallel/perp soft tissue techniques, suboccipital release. documented in this encounter [facility] 10-22-2023 History of Present illness Narrative Associated Order(s): L Inj/Asp: R knee Post-Procedure Diagnose(s): Primary osteoarthritis of right knee Images from the original note were not included. HISTORY OF PRESENT ILLNESS: Carolynn Givens is an 63 y.o. @ female. Chief complaint RT knee pain New patient: RT knee > LT knee RT knee pain x 6 months and worse x 2 weeks. She notes she has an issue with lumbar spine x 3 years and she attributes her knee pain to this. Describes as aching, worse with walking, kneeling, standing, stairs. Swims daily.She notes knee will not fully extend. Denies pain at HS. Admits giving way sensation. Denies locking or catching. Admits swelling. Uses ice, tried heat. 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 atorvastatin (Lipitor) 80 MG tablet TAKE 1 TABLET BY MOUTH EVERY DAY AT BEDTIME 90 tablet 3 bisoprolol-hydroCHLOROthiazide (Ziac) 2.5-6.25 MG tablet TAKE 1 TABLET BY MOUTH EVERY DAY 90 tablet 1 cinnamon 500 MG capsule Take 500 mg by mouth in the morning. clopidogrel (Plavix) 75 MG tablet TAKE 1 TABLET BY MOUTH EVERY DAY 90 tablet 3 coenzyme Q-10 200 MG capsule Take 1 capsule by mouth 1 (one) time each day at the same time. DULoxetine (Cymbalta) [address] capsule TAKE 1 CAPSULE BY MOUTH IN THE MORNING. DO NOT CRUSH OR CHEW. Elderberry 500 MG capsule Take 1 capsule by mouth in the morning. furosemide (Lasix) 40 MG tablet TAKE 1 TABLET BY MOUTH DAILY NEEDED (LOWER EXTREMITY EDEMA) 90 tablet 1 hydroCHLOROthiazide (HYDRODiuril) 25 MG tablet TAKE 1 TABLET BY MOUTH TWICE A DAY 180 tablet 3 KLOR-CON 10 MEQ ER tablet TAKE 1 TABLET (10 MEQ) BY MOUTH DAILY NEEDED (ON DAYS WHEN LASIX IS TAKEN) DO NOT CRUSH OR CHEW. 90 tablet 1 omega-3, EPA + DHA, (fish oil) 1000 MG capsule Take 1 capsule by mouth 1 (one) time each day at the same time. pregabalin (Lyrica) 300 MG capsule TAKE 1 CAPSULE (300 MG) BY MOUTH IN THE MORNING AND AT BEDTIME 60 capsule 0 saccharomyces boulardii (Florastor) 250 MG capsule Take 250 mg by mouth in the morning and 250 mg in the evening. Synthroid 125 MCG tablet TAKE 1 TABLET BY MOUTH EVERY DAY 90 tablet 3 [DISCONTINUED] ibuprofen 600 MG tablet Take 1 tablet by mouth every 6 (six) hours. No current facility-administered medications on file prior to visit. MEDICAL HISTORY: Past Medical History: Diagnosis Date Anxiety Atypical nevi Carotid artery stenosis Diabetes (CMS/HCC) Diabetes mellitus (CMS/HCC) Disease of thyroid gland (CMS/HCC) Hyperlipidemia (CMS/[facility]) Hypertension ([facility]) Hypothyroidism ([facility]) post thyroidectomy Impaired fasting glucose Obesity YUAN (obstructive sleep apnea) Stroke ([facility]) 09/2015 hospitalized ALLERGIES: Allergies Allergen Reactions Penicillins Unknown Sulfa Antibiotics Unknown VITALS: Visit Vitals OB Status Postmenopausal Smoking Status Never PHYSICAL EXAM: Ortho Exam Tenderness medial joint line right knee. 20- 70 degrees total range of motion. Flexion contracture is noted. Varus alignment is noted. She is limping. Skin is normal. Trace effusion normal color normal temp No instability. IMAGING: XR knee 1 or 2 views right Imaging Result: X-rays AP weight-bearing bilateral knees and lateral of the right knee demonstrate medial compartment collapse with [id number] and subchondral sclerosis and varus alignment bilateral knees. No fractures. Impression: Advanced osteoarthritis bilateral knees Willis Valenzuela D.O. ASSESSMENT: ICD-10-CM 1. Right knee pain, unspecified chronicity M25.561 XR knee 1 or 2 views right 2. Primary osteoarthritis of right knee M17.11 L Inj/Asp: R knee 3. Primary osteoarthritis of left knee M17.12 L Inj/Asp: R knee on 10/22/2023 1:02 PM Indications: pain Details: 21 G needle, anterolateral approach Medications: 40 mg methylPREDNISolone acetate 40 MG/ML Outcome: tolerated well, no immediate complications E UTILIZING ASEPTIC TECHNIQUE PT GIVEN INJECTION IN RIGHT KNEE, NEUROVASC INTACT S/P INJ, TOLERATED WELL Procedure, treatment alternatives, risks and benefits explained, specific risks discussed. Consent was given by the patient. PLAN: I showed her her x-rays I discussed options. I discussed progression of arthritis and the potential need for a knee replacement in the future. In the meantime she is going to continue to use her [id number] brace. She states she tried various nonsteroidals. They are not working. I discussed with the patient the option of an injection. I advised the patient of risks associated with an injection including a reaction to medication, infection, failure to improve and possible worsening. The patient demonstrated understanding. I recommended injection she was agreeable. Patient requesting injection. Skin Cleansed with alcohol swab. Utilizing aseptic technique patient given 40mg Depomedrol was injected. Patient tolerated this well. Neurovasc intact s/p injection. Post injection care instructions discussed. I explained the diagnosis and reviewed treatment options. I answered all of the patient's questions. Follow up in one week, any issues/concerns follow up sooner. Dr. Valenzuela obtained history and examined the patient, I am acting as scribe for Dr. Valenzuela/yandy Valenzuela D.O. documented in this encounter [facility] 07-18-2023 Note SUBJECTIVE: Chief complaint: Back pain. [...] do physical therapy [address] [facility] without lasting or substantial improvement. Did see pain management provider, Dr. Colbert, at [facility] and had 3 epidural steroid injections, most recently about 18 months ago, without lasting or substantial improvement. Has not had previous back surgery. Has tried medications, including gabapentin, and Lyrica without substantial improvement. States takes Tylenol with minimal improvement. 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. Used to enjoy boating and Jet Skiing, though [facility] for the past 2 years, she has [...] Stroke (CMS/HCC) 27 days after right CEA; 2016 Past Surgical History: Procedure Laterality Date ARTERY [...] acyclovir ALPRAZolam aspirin atorvastatin bisoproloL-hydrochlorothiazide clopidogrel hydroCHLOROthiazide MULTIVIT,[id number] ORAL NEURIVA PLUS BRAIN PERFORMANCE ORAL omega-3 [...] mouth 2 times daily., Disp: , Rfl: MULTIVIT,[id number] ORAL, Take by mouth., Disp: , Rfl: [...] regular and nonlabored. (more content not included)... [facility] 05-14-2022 Evaluation note Encounter Date Diagnosis Assessment Notes Apr, Sacroiliitis (ICD-10 - M46.1) Continue to wear insoles as provided by office aide. If pain persists, we can consider proceeding [...] Aspirin for 5 days prior to procedure. [employer] Other 03-22-2023 Evaluation note* Encounter Date Diagnosis Assessment Notes Treatment Notes Treatment Clinical Notes Apr, Sciatica, right side (ICD-10 - M54.31) Apr, Sciatica, left side (ICD-10 - M54.32) [employer] Other 03-20-2023 Reason for referral (narrative)* Reason 05/09/22 @ 1:30 gurrola rgical consultation for lumbar radiculopathy of L4-5, not improving with epidural injections Diagnosis 1 Lumbar radiculopathy (M54.16) Referral Organization [facility] Pain Managemen t Referring Provider First Name Jatin Referring Provider Last Name Shana Referring Provider Specialty Pain Medici ne Referred Organization [facility] Sp[facility] Referred Provider Iza King Referred Address [address] [place] [phone] Referred Provider Specialty Neurological Surgery Referral Priority Routine Referral Appointment Date 2022-05-09 General Notes Denise Kwan 04:47:59 PM >received today, note locked, sent P2P Jayde Lawrence 05/01/2022 11:37:06 AM >pt is scheduled 05/09/22 [employer] Other 03-07-2023 Evaluation note* Encounter Date Diagnosis [...] Aspirin for 5 days prior to procedure. [employer] Other 02-06-2023 Evaluation note* Encounter Date Diagnosis [...] Aspirin for 5 days prior to procedure. [employer] Other 01-18-2023 Evaluation note* Encounter Date Diagnosis [...] progress notes from her referring physician Cong Rosen. I also independently reviewed previous imaging of [...] negative findings were considered in medical decision-making. [employer] Other 06-17-2022 History of Present illness [id number] female presenting for carotid followup. She was last seen by Dr. Salazar last year. Duplex reveals less than 50% stenosis on the right with unchanged velocity. She has a h/o left carotid occlusion. She is taking aspirin, plavix and atorvastatin.[facility] Work Phone: 1(149) 222-175506-11-2021 History of Present illness [id number] female presenting for carotid followup. She was last seen by Dr. Salazar last year. Duplex reveals less than 50% stenosis on the right with unchanged velocity. She has a h/o left carotid occlusion. She is taking aspirin, plavix and atorvastatin.[facility] [address] Work Phone: 1(872) 477-990906-10-2021 History of Present illness [id number] female presenting for carotid followup. She was last seen by Dr. Salazar last year. Duplex reveals less than 50% stenosis on the right with unchanged velocity. She has a h/o left carotid occlusion. She is taking aspirin, plavix and atorvastatin.[facility] Work Phone: Evaluation noteNo InformationNort [employer] Other Evaluation note* Diagnosis Neuralgia and neuritis, unspecified documented in this encounter [facility]* Diagnosis Stenosis of right carotid artery- Primary Occlusion and stenosis of carotid artery without mention of cerebral infarction Left carotid artery occlusion Occlusion and stenosis of carotid artery without mention of cerebral infarction [facility] Psychophysiological insomnia Persistent disorder of initiating or maintaining sleep documented in this encounter [facility]* Diagnosis Type 2 diabetes mellitus without complication, without long-term current use of insulin ([facility]) documented in this encounter [facility]* Diagnosis Pre-op exam- Primary Preoperative examination, unspecified History of CVA (cerebrovascular accident) Transient ischemic attack (TIA), and cerebral infarction without residual deficits Bilateral carotid artery stenosis Occlusion and stenosis of carotid artery without mention of cerebral infarction Primary hypertension Unspecified essential hypertension Hypothyroidism, unspecified type Obesity, Class II, BMI 35-39.9 Obesity, unspecified Prediabetes Other abnormal glucose Factor V Leiden ([facility]) Primary hypercoagulable state Murmur Undiagnosed cardiac murmurs YUAN (obstructive sleep apnea) Obstructive sleep apnea (adult) (pediatric) Unilateral primary osteoarthritis, right knee [facility] information available[facility] Work Phone: Evaluation note* Diagnosis Psychophysiological insomnia Persistent disorder of initiating or maintaining sleep documented in this encounter [facility]* Diagnosis Acute pain of right knee- Primary S/P total knee arthroplasty, right documented in this encounter [facility]* Diagnosis Acute pain of right knee- Primary S/P total knee arthroplasty, right documented in this encounter [facility]* Diagnosis Acute pain of right knee- Primary S/P total knee arthroplasty, right documented in this encounter [facility]* Diagnosis Psychophysiological insomnia Persistent disorder of initiating or maintaining sleep documented in this encounter [facility]* Diagnosis Acute pain of right knee- Primary S/P total knee arthroplasty, right documented in this encounter [facility]* Diagnosis Acute pain of right knee- Primary S/P total knee arthroplasty, right documented in this encounter [facility]* Diagnosis Acute pain of right knee- Primary S/P total knee arthroplasty, right documented in this encounter [facility]* Diagnosis Melanocytic nevus of trunk- Primary Benign neoplasm of skin of trunk, except scrotum Lentigines Seborrheic keratosis History of nevus excision Neoplasm of unspecified behavior of bone, soft tissue, and skin documented in this encounter [facility]* Diagnosis Acute pain of right knee- Primary S/P total knee arthroplasty, right documented in this encounter [facility]* Diagnosis Right knee pain, unspecified chronicity- Primary Primary osteoarthritis of right knee Primary osteoarthritis of left knee documented [facility]* Diagnosis C7 radiculopathy- Primary Brachial neuritis or radiculitis nos Somatic dysfunction of lumbar region Nonallopathic lesion of lumbar region, not elsewhere classified Somatic dysfunction of pelvis region Nonallopathic lesion of pelvic region, not elsewhere classified Somatic dysfunction of cervical region Nonallopathic lesion of cervical region, not elsewhere classified Somatic dysfunction of thoracic region Nonallopathic lesion of thoracic region, not elsewhere classified documented [facility]* Diagnosis Primary osteoarthritis of both knees- Primary documented [facility]* Diagnosis Psychophysiological insomnia Persistent disorder of initiating or maintaining sleep documented [facility]* Diagnosis Chronic pain syndrome- Primary Bilateral primary osteoarthritis of knee Type 2 diabetes mellitus without complication, without long-term current use of insulin ([facility]) Type 2 diabetes mellitus with diabetic cataract ([facility]) Type II or unspecified type diabetes mellitus with ophthalmic manifestations, not stated as uncontrolled 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[facility]) Sacroiliitis, not elsewhere classified ([facility]) Sacroiliitis, not elsewhere classified documented [facility]* Diagnosis Acute pain of right knee- Primary S/P total knee arthroplasty, right documented in [facility]* Diagnosis Acute pain of right knee- Primary S/P total knee arthroplasty, right documented [facility]* Diagnosis Acute pain of right knee- Primary S/P total knee arthroplasty, right documented in this encounter [facility]* Diagnosis Mixed hyperlipidemia ([facility]) Mixed hyperlipidemia Neuralgia and neuritis, unspecified documented in this encounter [facility]* Diagnosis Chronic pain syndrome Psychophysiological insomnia Persistent disorder of initiating or maintaining sleep documented in this encounter [facility]* Diagnosis Knee pain, unspecified chronicity, unspecified laterality- Primary documented in this encounter [facility]* Diagnosis Other specified hypothyroidism ([facility]) documented in this encounter [facility]* Diagnosis Psychophysiological insomnia Persistent disorder of initiating or maintaining sleep documented in this encounter [facility] Narrative - Reported* Type Description Date Medical History diabetes mallitus Medical History herpes Medical History high blood pressure Medical History obesity Medical History stroke Surgical History carotid endarterectomy Surgical History carpal tunnel release Surgical History thyroidectomy Hospitalization History see above surg. hx. [employer] Other History of Present illness [id number] female presenting for carotid followup. She denies lateralizing symptoms. She has a known leftcarotid occlusion. She continues to take aspirin, plavix and atorvastatin.[facility] Work Phone: History of Present illness [id number] female presenting for carotid follow up. She denies lateralizing symptoms. She has a known left carotid occlusion and h/o right CEA. She continues to take aspirin, plavix and atorvastatin[facility] Work Phone: Reason for referral (narrative)* Outpatient Procedure (Routine) - New Request Specialty Diagnoses / Procedures Referred By Shira payne Referred To [facility] Diagnoses Stenosis of right carotid artery Left carotid artery occlusion Procedures US CAROTID ARTERIES MAT VAS LAB DUPLEX SCAN EXTRACRANIAL ART [place] [address] [place] [address] [facility] [place] [address] [place] [address] Referral ID Status Reason Start Date Expiration Date Visits Requested Visits Authorized [id number] New Request Auto-Generat ed Referral 11/18/2023 11/17/2024 1 1 [facility] for visit Narrative* Rehabilitation - Outpatient (Routine) - Authorized Specialty Diagnoses / Procedures Referred By Shira payne Referred To Contact Physical Therapy Diagnoses R TKA Procedures MO PHYSICAL THERAPY EVALUATION LOW COMPLEX 20 [place] [address] [place] [address] Phone: tel: fax: Jimbo Rodriguez, PT [address] [facility] [email or web address] [address] [place] [address] Phone: tel: fax: Referral ID Status Reason Start Date Expiration Date Visits Requested Visits Authorized [id number] Authorized Consult and Treat 01/03/2024 07/01/2024 20 20 [facility] N[facility]* Rehabilitation - Outpatient (Routine) - Authorized Specialty Diagnoses / Procedures Referred By Contac t Referred To Contact Physical Therapy Diagnoses R TKA Procedures MO PHYSICAL THERAPY EVALUATION LOW COMPLEX 20 [place] [address] [place] [address] Phone: tel: fax: Jimbo Rodriguez, PT [address] [address] Phone: tel: fax: Referral ID Status Reason Start Date Expiration Date Visits Requested Visits Authorized [id number] Authorized Consult and Treat 01/03/2024 02/18/2024 20 20 [facility] N[facility]* Rehabilitation - Outpatient (Routine) - Authorized Specialty Diagnoses / Procedures Referred By Contac t Referred To Contact Physical Therapy Diagnoses R TKA Procedures MO THERAPEUTIC PX 1/> AREAS EACH 15 MIN EXERCISES Jorge L Hatch MD [address] [address] Phone: tel: fax: Jimbo Rodriguez, PT [address] [place] [address] Referral ID Status Reason Start Date Expiration Date V isits Requested Visits Authorized [id number] Authorized 02/20/2024 08/18/2024 99 99 [facility] N[facility]* Rehabilitation - Outpatient (Routine) - Authorized Specialty Diagnoses / Procedures Referred By Contac t Referred To Contact Physical Therapy Diagnoses R TKA Procedures MO THERAPEUTIC PX 1/> AREAS EACH 15 MIN EXERCISES Jorge L Hatch MD [address] [place] [address] Phone: tel: fax: Jimbo Rodriguez, PT [address] [place] [address] Referral ID Status Reason Start Date Expiration Date V isits Requested Visits Authorized [id number] Authorized 02/20/2024 08/18/2024 99 20 [facility] N[facility]* Rehabilitation - Outpatient (Routine) - Authorized Specialty Diagnoses / Procedures Referred By Contac t Referred To Contact Physical Therapy Diagnoses R TKA Procedures MO THERAPEUTIC PX 1/> AREAS EACH 15 MIN EXERCISES Jorge L Hatch MD [address] [address] Phone: tel: fax: Michael Jimbo D, PT [address] [place] [address] Referral ID Status Reason Start Date Expiration Date V isits Requested Visits Authorized [id number] Authorized 02/20/2024 02/17/2025 12 12 [facility] Healthcare Summary Purpose Family History Unknown Family Member Name Dates Details Family [...] wi thout rupture: Father Status:Active Advance Directives Advance Directive Response Recorded Date/ Time Advance Directives No December 9:50am Chief Complaint Follow Up- Carotid Ultrasound 07/14/2021* [...] presents for evaluation of carotid artery stenosis. Chief Complaint and Reason for Visit Chief Complaint r73.01 r01.1 r60.0 Reason for Referral Specialty Diagnoses / Procedures Referred By Shira payne Referred To Contact Orthopaedic Surgery Diagnoses Primary osteoarthritis of right knee Procedures L Inj/Asp: R knee Tracey Valenzuela, DO [address] [facility] [address] [place] [address] Referral ID Status Reason Start Date Expiration Date V isits Requested Visits Authorized [id number] Authorized 10/22/2023 04/19/2024 1 1 Additional Source Comments INFORMATION SOURCE (unrecogn ized section and content) DATE CREATED AUTHOR 05/19/2018 [facility] DATE CREATED AUTHOR AUTHOR'S ORGANIZ ATION 07/15/2021 [facility] DATE CREATED AUTHOR AUTHOR'S ORGANIZ ATION 07/24/2021 [facility] dical Specialist DATE CREATED AUTHOR AUTHOR'S ORGANIZ ATION 10/20/2022 [facility] DATE CREATED AUTHOR AUTHOR'S ORGANIZ ATION 10/21/2022 [employer] DATE CREATED AUTHOR AUTHOR'S ORGANIZ ATION 08/12/2023 [facility] DATE CREATED AUTHOR AUTHOR'S ORGANIZ ATION 09/30/2023 [facility] DATE CREATED AUTHOR AUTHOR'S ORGANIZ ATION 11/18/2023 [facility] DATE CREATED AUTHOR AUTHOR'S ORGANIZ ATION 01/17/2024 [facility] DATE CREATED AUTHOR AUTHOR'S ORGANIZ ATION 02/27/2024 [facility] DATE CREATED AUTHOR AUTHOR'S ORGANIZ ATION 03/22/2024 [facility] dical Specialists EPIC REASON FOR VISIT (unrecogniz ed section and content) Reason Onset Date Comments Med Refill 03/31/2023 Reason Comments New Patient Reason Onset Date Comments Med Refill 11/27/2023 Reason Comments Med Refill Reason Onset Date Comments Med Refill 12/29/2023 Reason Onset Date Comments Med Refill 01/22/2024 Reason Comments Skin Check Reason Comments Pain Reason Comments Muscle Pain Reason Onset Date Comments Med Refill 10/28/2023 Reason Comments Follow-up Reason Onset Date Comments Med Refill 02/25/2024 Reason Onset Date Comments Med Refill 03/27/2024 Care Teams (unrecognized sec tion and content) [employer] Relationship Specialty Start Date End Date Edgar Stockton DO [address] [place] [address] PCP - General Family Medicine 11/29/22 Cong Rosen PA [address] [place] [address] Physician Devops Engineer Family Medicine 08/10/22 [employer] Relationship Specialty Start Date End Date Cong Rosen PA-C [address] [place] [address] Physician Devops Engineer 06/18/23 [employer] Relationship Specialty Start Date End Date Brooks Calixto DO [address] [place] [address] PCP - General Family Medicine 09/27/23 Cong Rosen PA [address] [place] [address] Physician Devops Engineer Family Medicine 08/10/22 [employer] Architect Relationship Specialty Start Date End Date Brooks Calixto DO [address] [place] [address] PCP - General Family Medicine 09/27/23 Cong Rosen PAKyle [address] [place] [address] Physician Devops Engineer 06/18/23 [place] [address] [place] [address] Surgeon Orthopedics 11/19/23 [employer] Relationship Specialty Start Date End Date Brooks Calixto DO [address] [place] [address] PCP - General Family Medicine 09/27/23 Cong Rosen, PA [address] [place] [address] Physician Devops Engineer Family Medicine 08/10/22 [employer] Architect Relationship Specialty Start Date End Date Brooks Calixto DO [address] [place] [address] PCP - General Family Medicine 09/27/23 Cong Rosen, PA [address] [place] [address] Physician Devops Engineer Family Medicine 08/10/22 Team Status: Active Member Role Status Dates Brooks Calixto DO Primary Care Provider Active Team Status: Inactive Member Role Status Dates Brooks Calixto DO Primary Care Provi louisa, Attending Provider Active Start: December 20, 2023 End: December 20, 2023 [employer] Architect Relationship Specialty Start Date End Date Brooks Calixto DO [address] [place] [address] PCP - General Family Medicine 09/27/23 Cong Rosen PA [address] [place] [address] Physician Devops Engineer Family Medicine 08/10/22 [employer] Architect Relationship Specialty Start Date End Date Brooks Calixto DO [address] [place] [address] PCP - General Family Medicine 09/27/23 Cong Rosen, PA [address] [place] [address] Physician Devops Engineer Family Medicine 08/10/22 [employer] Architect Relationship Specialty Start Date End Date Brooks Calixto DO [address] [place] [address] PCP - General Family Medicine 09/27/23 Cong Rosen, PA [address] [place] [address] Physician Devops Engineer Family Medicine 08/10/22 [employer] Architect Relationship Specialty Start Date End Date Brooks Calixto DO [address] [place] [address] PCP - General Family Medicine 09/27/23 Cong Rosen, PA [address] [place] [address] Physician Devops Engineer Family Medicine 08/10/22 [employer] Architect Relationship Specialty Start Date End Date Brooks Calixto DO [address] [place] [address] PCP - General Family Medicine 09/27/23 Cong Rosen, PA [address] [place] [address] Physician Devops Engineer Family Medicine 08/10/22 [employer] Architect Relationship Specialty Start Date End Date Brooks Calixto DO [address] [place] [address] PCP - General Family Medicine 09/27/23 Cong Rosen, PA [address] [place] [address] Physician Devops Engineer Family Medicine 08/10/22 [employer] Architect Relationship Specialty Start Date End Date Broosk Calixto DO [address] [place] [address] PCP - General Family Medicine 09/27/23 Cong Rosen, PA [address] [place] [address] Physician Devops Engineer Family Medicine 08/10/22 Sonia Vera, RN Registered Nurse Family Medicine 01/21/24 01/21/24 [employer] Relationship Specialty Start Date End Date Brooks Calixto DO [address] [place] [address] PCP - General Family Medicine 09/27/23 Cong Rosen, PA [address] [place] [address] Physician Devops Engineer Family Medicine 08/10/22 [employer] Architect Relationship Specialty Start Date End Date Brooks Calixto DO [address] [place] [address] PCP - General Family Medicine 09/27/23 Cong Rosen, PA [address] [place] [address] Physician Devops Engineer Family Medicine 08/10/22 [employer] Architect Relationship Specialty Start Date End Date Brooks Calixto DO [address] [place] [address] PCP - General Family Medicine 09/27/23 Cong Rosen, PA [address] [place] [address] Physician Devops Engineer Family Medicine 08/10/22 [employer] Architect Relationship Specialty Start Date End Date Brooks Calixto DO [address] [place] [address] PCP - General Family Medicine 09/27/23 Cong Rosen, PA [address] [place] [address] Physician Devops Engineer Family Medicine 08/10/22 [employer] Architect Relationship Specialty Start Date End Date Brooks Calixto DO [address] [place] [address] PCP - General Family Medicine 09/27/23 Cong Rosen, PA [address] [place] [address] Physician Devops Engineer Family Medicine 08/10/22 [employer] Architect Relationship Specialty Start Date End Date Brooks Calixto DO [address] [place] [address] PCP - General Family Medicine 09/27/23 Cong Rosen, PA [address] [place] [address] Physician Devops Engineer Family Medicine 08/10/22 [employer] Architect Relationship Specialty Start Date End Date Brooks Calixto DO [address] [place] [address] PCP - General Family Medicine 09/27/23 Cong Rosen PA [address] [place] [address] Physician Devops Engineer Family Medicine 08/10/22 [employer] Architect Relationship Specialty Start Date End Date Brooks Calixto DO [address] [place] [address] PCP - General Family Medicine 09/27/23 Cong Rosen, PA [address] [place] [address] Physician Devops Engineer Family Medicine 08/10/22 [employer] Architect Relationship Specialty Start Date End Date Brooks Calixto DO [address] [place] [address] PCP - General Family Medicine 09/27/23 Cong Rosen, PA [address] [place] [address] Physician Devops Engineer Family Medicine 08/10/22 [employer] Architect Relationship Specialty Start Date End Date Brooks Calixto DO [address] [place] [address] PCP - General Family Medicine 09/27/23 Cong Rosen, PA [address] [place] [address] Physician Devops Engineer Family Medicine 08/10/22 [employer] Architect Relationship Specialty Start Date End Date Brooks Calixto DO [address] [place] [address] PCP - General Family Medicine 09/27/23 Cong Rosen, PA [address] [place] [address] Physician Devops Engineer Family Medicine 08/10/22 [employer] Architect Relationship Specialty Start Date End Date Brooks Calixto DO [address] [place] [address] PCP - General Family Medicine 09/27/23 Cong Rosen, PA [address] [place] [address] Physician Devops Engineer Family Medicine 08/10/22 [employer] Architect Relationship Specialty Start Date End Date Brooks Calixto DO [address] [place] [address] PCP - General Family Medicine 09/27/23 Cong Rosen, PA [address] [place] [address] Physician Devops Engineer Family Medicine 08/10/22 [employer] Architect Relationship Specialty Start Date End Date Brooks Calixto DO [address] [place] [address] PCP - General Family Medicine 09/27/23 Cong Rosen PA [address] [place] [address] Physician Devops Engineer Family Medicine 08/10/22 [employer] Architect Relationship Specialty Start Date End Date Brooks Calixto DO [address] [place] [address] PCP - General Family Medicine 09/27/23 Cong Rosen PA [address] [place] [address] Physician Devops Engineer Family Medicine 08/10/22 [employer] Architect Relationship Specialty Start Date End Date Brooks Calixto DO [address] [place] [address] PCP - General Family Medicine 09/27/23 Cong Rosen PA [address] [place] [address] Physician Devops Engineer Family Medicine 08/10/22 [employer] Architect Relationship Specialty Start Date End Date Brooks Calixto DO [address] [place] [address] PCP - General Family Medicine 09/27/23 Cong Rosen PA [address] [place] [address] Physician Devops Engineer Family Medicine 08/10/22 Source Comments (unrecognize d section and content) In the event this informatio n is protected by the Federal Confidentiality of Alcohol and Drug Abuse Patient Records regulations: The Federal rules restrict any use of the information to criminally investigate or prosecute any alcohol or drug abuse patient.[facility] Health[facility] the event this information is protected by the Federal Confidentiality of Alcohol and Drug Abuse Patient Records regulations: The Federal rules restrict any use of the information to criminally investigate or prosecute any alcohol or drug abuse patient.[facility] Goals (unrecognized section and content) Goals may be documented in a n alternate section FOR RECORDS PERTAINING TO PATIENTS WHO ARE [...] BE BASED ON THE PRIMARY CLINICAL RECORDS. [facility] [employer] [facility]. provides no warranty or guarantee of the accuracy or completeness of information in this document.
== END 2024-04-21 09:48 | disposition home or self-care (01) ==
PROVIDERS: Visit Provider Anesthesiology Pain Medicine
DX: M47.816 Spondylosis without myelopathy or radiculopathy, lumbar region (principal); M79.10 Myalgia, unspecified site
CPT/HCPCS: G0463

== ENCOUNTER 2024-05-04 09:37 | Day surgery (SDC) | payer BC, SELFPAY ==
[2024-05-04 10:02] LABS: Glucometer 90 mg/dL (74-106)
[2024-05-04 10:06] VITALS: BP 124/81; PULSE 74; TEMP 36.3; O2SAT 100
[2024-05-04] MEDS: METHYLPREDNISOLONE ACETATE 80 MG/ML VIAL INJ (10:56)
[2024-05-04] MEDS: BUPIVACAINE HCL 0.25% PF 25 MG/10 ML VIAL INJ (10:57)
[2024-05-04 10:58] VITALS: BP 157/81; BP 161/83; PULSE 67; PULSE 71; O2SAT 97
--- NOTE | 2024-05-04 14:48 | W.PM.PROCNOT ---
Date of procedure: 05/04/24 Pre-op diagnosis: lumbar spondylosis Post-op diagnosis: same as pre-op Procedure: Bilateral Lumbar 5/Sacral 1 medial branch block Preop diagnosis includes pain secondary to spondylosis, Postop diagnosis same Under fluoroscopic guidance Solution injected: 2milliliters Marcaine 0.25%, Depomedrol 80mg Anesthesia :none Immediate complications none Time out process compliant After informed consent obtained from the patient placed in the Prone proposition . area was prepped and draped in a sterile fashion using betadine .25 gauge spinal needle inserted over each of the above mentioned target areas . Branson were directed towards the target under fluoroscopic guidance . after encountering each of the targets , no indication of intravascular intraneuronal or intrathecal needle tip placement. Then solution was injected to each side. Branson removed postoperatively. patient transferred to recovery in stable condition to be discharged home after meeting criteria Anesthesia: Local Surgeon: Michelle Martinez Condition: stable Disposition: PACU
== END 2024-05-04 11:07 | disposition home or self-care (01) ==
PROVIDERS: Visit Provider Anesthesiology Pain Medicine
DX: M47.816 Spondylosis without myelopathy or radiculopathy, lumbar region (principal); R73.03 Prediabetes
CPT/HCPCS: 36415; 64493; 82948; J0665; J1010

== ENCOUNTER 2024-05-20 09:19 | Outpatient (OUT) | payer BC, SELFPAY ==
--- OUTSIDE RECORDS SUMMARY | 2024-05-20 09:29 | XMS_ITS | CCD ---
Author Organization [facility] Care Team Providers Care Supervisory It Specialist Name Role Phone Rizwana Salazar Attending Unavailabl [...] JORDI Referring Unavailable OVITT, JORDI Referring Unavailable OVVICKY, JORDI Attending Unavailable JACK BARBOSA Referring Unavailable DORY WELLS Primary Care Unavailable RIZWANA SALAZAR Attending Unavail able Cong Rosen PA-C Unavailable Brooks Calixto DO Primary Care Provider [phone] Brooks Calixto DO Primary Care Provider Jorge L Hatch MD Unavailable DO Brooks Calixto Primary Care Provider DO Brooks Calixto Attending Provider JORGE L HATCH Admitting Unavailabl e HOLDEN, JORGE L BHATTI Attending Unavailabl e CUTLER, BROOKS L Primary Care Unavailable PACHECO VILLELA Referring Unavailable CUTLER, BROOKS L Primary Care Unavailable HOLDEN, JORGE L BHATTI Referring Unavailabl e CUTLER, BROOKS L Primary Care Unavailable Sonia Vera RN Unavailable Unavailable Mcclellan, Brooks L Attending Unavailable Mcclellan, Brooks L Primary Care Unavailable Mcclellan, Brooks L Admitting Unavailable GUNDLACH, JIMBO [place] Attending Unavailable HOLDEN, JORGE L Referring Unavailable BOLA AKHTAR Attending Unavailable PETITTIMISA Attending Unavailable ROSEN, CONG Brumfield Attending Unavailable KAFTANEDGAR Referring Unavailable ROSEN, CONG Brumfield Referring Unavailable [...] Attending Unavailable HOLDEN, JORGE L Referring Unavailable PETITTIMISA Attending Unavailable GUNDLBENJIE, JIMBO [place] Attending Unavailable HOLDEN, JORGE L Referring Unavailable GUNDLACH, JIMBO [place] Attending Unavailable HOLDEN, JORGE L Referring Unavailable GUNDLACH, JIMBO [place] Attending Unavailable HOLDEN, JORGE L Referring Unavailable JAZZY JAMES Attending Unavailable HOLDEN, JORGE L Referring Unavailable [...] Drug Allergy [facility] [employer] Work Phone: Penicillins (antibiotic) (1 source) Penicillins; Translations: [Penicillins] Drug Allergy [facility] [employer] Work Phone: Sulfonamides (antibiotic) (1 source) Sulfonamides (Antibiotic); Translations: [Sulfa Drugs] Drug Allergy [facility] [employer] Work Phone: Unclassified (7 sources) Cont[employer]Box MISC; Translations: [Cont[employer] MISC] Allergy to drug (finding) [facility] [employer] Work Phone: (6 sources) Clarithromycin; Translations: [Clarithromycin TABS] [facility] Work Phone: (9 sources) Penicillins; Translations: [Penicillins] Allergy to drug (finding) 05-15-19 [facility] Repository (6 sources) Sulfonamides (Antibiotic); Translations: [Sulfa Drugs] Allergy to drug (finding) [facility] [employer] Work Phone: (5 sources) Penicillin Drug Allergy Unknown [employer] Other (20 sources) Substance with sulfonamide structure and antibacterial mechanism of action (substance) Drug allergy 08-11-19 Unknown, Hives [employer] Other (20 sources) Penicillins Drug Allergy 08-11-19 Unknown [facility] (1 source) Sulfur; Translations: [SULFUR] Drug Allergy 07-18-19 [facility] Repository (1 source) ALLERGIES NOT ON FILE; Translations: [ALLERGIES NOT ON FILE] Propensity to adverse reactions (disorder) [place] [address] Repository (2 sources) Penicillins Drug Allergy 11-18-19 Anaphylaxis [facility] (3 sources) Sulfonamides (Antibiotic); Translations: [SULFA (SULFONAMIDE ANTIBIOTICS)] Allergy to substance 05-15-19 [facility] (1 source) Penicillins Drug allergy (disorder) 05-15-19 [facility] Repository Medications Current Medications Medication Drug [...] 1 10/28/2023 Active Zovirax Active Acyclovir Active ALPRAZolam 0.5 mg oral tablet (20 sources) Benzodiazepine Start: 09-25-2023 End: 05-23-2024 ALPRAZolam (Xanax) 0.5 MG tablet Indications: Psychophysiological insomnia Take 1 tablet (0.5 mg) by mouth as needed at bedtime for anxiety 30 tablet 04/23/2024 05/23/2024 Active Start: 02-28-2023 ALPRAZolam (Xa nax) 0.5 MG [...] Activ e aspirin 81 mg chewable tablet (20 sources) [...] tablet (20 sources) HMG-CoA Reductase Inhibitor Start: 04-17-2024 take 1 tablet by mouth at bedtime atorvastatin (Lipitor) 80 MG tablet Indications: Mixed hyperlipidemia (CMS/HCC) TAKE 1 TABLET BY MOUTH AT BEDTIME 90 tablet 3 04/17/2024 Active Start: 02-28-2023 End: 02-25-2024 take 1 tablet by mouth at bedtime atorvastatin (Lipitor) 80 MG tablet Indications: Mixed hyperlipidemia (CMS/HCC) Take 1 tablet (80 mg) by mouth at bedtime 90 tablet 3 02/25/2024 Active Atorvastatin Mitchell cium Active baclofen 10 mg oral tablet (20 sources) gamma-Aminobutyric Acid-ergic Agonist Start: 04-23-2024 take 1 tablet by mouth in the morning, then take 1 tablet by mouth in the evening, then take 1 tablet by mouth at bedtime baclofen (Lioresal) 10 MG tablet Indications: Chronic pain syndrome Take 1 tablet (10 mg) by mouth in the morning and 1 tablet (10 mg) in the evening and 1 tablet (10 mg) before bedtime. 270 tablet 3 04/23/2024 Active Start: 10-01-2023 End: 04-22-2024 take 1 tablet by mouth in the morning, then take 1 tablet by mouth in the evening, then take 1 tablet by mouth at bedtime baclofen (Lioresal) 10 MG tablet Indications: Chronic pain syndrome Take 1 tablet (10 mg) by mouth in the morning and 1 tablet (10 mg) in the evening and 1 tablet (10 mg) before bedtime. 270 tablet 3 02/25/2024 04/22/2024 Discontinued (Reorder) Evelio Low Dose (10 sources) Evelio Low Dose Active bisoprolol fumarate 2.5 mg / hydroCHLOROthiazide 6.25 mg oral tablet (20 sources) Thiazide Diuretic, beta-Adrenergic Nabeel Start: 04-09-19 take 1 tablet by mouth once daily bisoprolol-hydroCHLO ROthiazide (Ziac) 2.5-6.25 MG tablet Indications: Benign hypertension (CMS/HCC) TAKE 1 TABLET BY MOUTH EVERY DAY 90 tablet 1 04/09/2024 Active Start: 10-09-2023 take 1 tablet by kirstin th once [...] oral tablet (20 sources) Loop Diuretic Start: 04-17-2024 take 1 tablet by mouth once daily as needed for edema furosemide (Lasix) 40 MG tablet Indications: Impaired fasting glucose , Systolic murmur , Edema of extremities TAKE 1 TABLET BY MOUTH DAILY NEEDED (LOWER EXTREMITY EDEMA) 90 tablet 1 04/17/2024 Active Start: 08-29-2023 take 1 tablet by kirstin th once daily as needed for edema furosemide [...] pain Active take 1 capsule by mo [facility] three times daily Gabapentin 100 MG 1 capsule Orally three times daily Active glucosamine sulfate 500 mg oral tablet (1 source) take 1 tablet by mouth twice daily Glucosamine Sulfate (GLUCOSAMINE) 500 mg tab Take 1 tablet by mouth two times a day. 1500 mg chondroitin sulfate 1200mg sodium Active hydroCHLOROthiazide 25 mg oral tablet (20 sources) Thiazide Diuretic Start: 025 take 1 tablet by mouth twice daily hydroCHLOROthiazide (HYDRODiuril) 25 MG tablet Indications: Benign hypertension (CMS/HCC) TAKE 1 TABLET BY MOUTH TWICE A DAY 180 tablet 3 04/17/2024 Active Start: 07-17-2023 take 1 tablet by kirstin twice daily [...] mg oral tablet (20 sources) l-Thyroxine Start: 02-25-2023 End: 03-23-2024 take 1 tablet by mouth once daily Synthroid 125 MCG tablet Indications: Other specified hypothyroidism (CMS/HCC) TAKE 1 TABLET BY MOUTH EVERY DAY 90 tablet 3 03/23/2024 Active take 1 tablet by kirstin once daily before breakfast levothyroxine (SYNTHROID) 150 mcg tablet Take 150 mcg by mouth daily before breakfast. Active take 1 tablet by mouth once [...] sources) Neuriva - as directed Orally Active Sebastian 3 Fish Oil (10 sources) Sebastian 3 Fish Oil Active Sebastian-3 Fatty Acids, FISH OIL, 360-1,200 mg cap (1 source) Sebastian-3 Fatty Acids, FISH OIL, 360-1,200 mg cap [...] 03/05/2023 Active take 1 tablet by kirstin th every twenty-four hours predniSONE 20 MG 1 [...] Active Start: 04-01-2023 take 1 capsule by mo ut in the morning pregabalin (Lyrica) 300 MG [...] Start: 10-19-2022 take 1 capsule by mo uth twice daily Lyrica 150 MG Oral Capsule [...] complication, without long-term current use of insulin ([facility]) Inject 1 mg under the [...] (20 sources) take 1 capsule by mo ut once daily coenzyme Q-10 200 MG capsule Take 1 capsule by mouth 1 (one) time each day at the same time. Active Womens Daily Formula (10 sources) Womens Daily For santana Active Completed/Discontinued Medications Medication Drug Class(es) Dates Sig (Normalized) Sig (Original) betamethasone 3 mg/ml / betamethasone acetate 3 mg/ml injectable suspension (4 sources) Corticosteroid Start: 10-24-2023 End: 10-24-2023 betamethasone acetate-betamethason e sodium phosphate (Celestone) injection 1 mL Start: [...] 0 Refills: 0 Ordered: 29-May-2017 DO Active Sebastian 3 CAPS (7 sources) Sebastian 3 CAPS Quantity: 0 Refills: 0 Ordered: [...] cerebrovascular disease] Chronic Miscellaneous mental health disorders (7 sources) Psychophysiologic insomnia; Translations: [Psychophysiologic insomnia] 11-27-2023 [...] chronic pain Chronic Other nervous system disorders (4 sources) Chronic pain syndrome; Translations: [Chronic pain [...] endocrine, metabolic, and immunity disorders] Episodic Other screening for suspected conditions (not mental disorders or infectious disease) (2 sources) Patient encounter status; Translations: [Encounter for screening for diabetes mellitus] 04-30-2024 Episodic Other skin disorders (2 sources) Lentiginosis; [...] 3 09-26-2022 Chronic Unclassified (2 sources) Z48.812 24378/82 Onset: 8 Unclassified (1 source) Obesity, Class [...] Test Name Value Interpretation Reference Range Facility CARDIOCHECK - LIPID AND GLUC OSEon 04-30-2024 Cholesterol [Mass/Vol] 124 mg/dL [facility] 200 [facility] Cholesterol in HDL [Mass/Vol] 56 mg/dL M: 35-65 F: 35-80 [facility] Cholesterol in LDL [Mass/Vol] 68 mg/dL [facility] 100 [facility] Glucose [Mass/Vol] 99 mg/dL [facility] 100 [facility] Interpretation and review of laboratory results Abnormal [facility] Triglyceride [Mass/Vol] 95 mg/dL [facility] - 150 [facility] No Panel Informationon 02-02 Type of biopsy: [...] taken Amount of lidocaine used: 0.5 cc [facility] Type of biopsy: tangential Informed consent: discussed [...] taken Amount of lidocaine used: 0.5 cc [facility] Basic metabolic 2000 panelon 01-02-2024 Anion gap [Moles/Vol] 10 mmol/L Normal 8-15 [facility] Comment on above: Order Comment: Speci men Type: BLOOD SPECIMEN Ordering Facility: [facility] Address: [address] [place] [address] Performed By: #### 2 4321-2 #### [facility] [place] [id number] [address] [place] [address] [place] Calcium [Mass/Vol] 9.2 mg/dL Normal 8.5-10.2 [facility] Comment on above: Order Comment: Speci men Type: BLOOD SPECIMEN Ordering Facility: [facility] Address: [address] [place] [address] Performed By: #### 2 4321-2 #### [facility] [place] [id number] [address] [place] [address] [place] Chloride [Moles/Vol] 103 mmol/L Normal 98-107 [facility] Comment on above: Order Comment: Speci men Type: BLOOD SPECIMEN Ordering Facility: [facility] Address: [address] [place] [address] Performed By: #### 2 4321-2 #### [facility] [place] [id number] [address] [place] [address] [place] CO2 [Moles/Vol] 28 mmol/L Normal 22-30 [facility] Comment on above: Order Comment: Speci men Type: BLOOD SPECIMEN Ordering Facility: [facility] Address: [address] [place] [address] Performed By: #### 2 4321-2 #### [facility] [place] [id number] [address] [place] [address] [place] Creatinine [Mass/Vol] 0.85 mg/dL Normal 0.58-0.96 [facility] Comment on above: Order Comment: Iván fernandez Type: BLOOD SPECIMEN Ordering Facility: [facility] Address: [address] [id number] Performed By: #### 2 4321-2 #### [facility] CLIA [id number] [address] [place] [address] [place] Creatinine and Glomerular filtration rate.predicted panel (S/P/Bld) 77 mL/min/1.73m??? Normal >=60 [facility] Comment on above: Order Comment: Iván fernandez Type: BLOOD SPECIMEN Ordering Facility: [facility] Address: [address] [place] [address] Result Comment: Viviane mated Glomerular Filtration Rate [...] GFR. Performed By: #### 2 4321-2 #### [facility] CLIA [id number] [address] [place] [address] [place] Glucose [Mass/Vol] 152 mg/dL High 74-99 [facility] Comment on above: Order Comment: Iván fernandez Type: BLOOD SPECIMEN Ordering Facility: [facility] Address: [address] [place] [address] Result Comment: The [place] Diabetes Association (ADA) provides guidance for cutoff [...] Standards of Medical Care in Diabetes 2016, [place] [employer]. Diabetes Care. 2016.39(Suppl 1). Performed By: #### 2 4321-2 #### [facility] CLIA [id number] [address] [place] [address] [place] Potassium [Moles/Vol] 3.5 mmol/L Low 3.7-5.1 [facility] Comment on above: Order Comment: Speci men Type: BLOOD SPECIMEN Ordering Facility: [facility] Address: [address] [place] [address] Performed By: #### 2 4321-2 #### [facility] CLIA [id number] [address] [place] [address] [place] Sodium [Moles/Vol] 141 mmol/L Normal 136-144 [facility] Comment on above: Order Comment: Speci men Type: BLOOD SPECIMEN Ordering Facility: [facility] Address: [address] [place] [address] Performed By: #### 2 4321-2 #### [facility] CLIA [id number] [address] [place] [address] [place] Urea nitrogen [Mass/Vol] 21 mg/dL Normal 7-21 [facility] Comment on above: Order Comment: Speci men Type: BLOOD SPECIMEN Ordering Facility: [facility] Address: [address] [place] [address] Performed By: #### 2 4321-2 #### [facility] CLIA [id number] [address] [place] [address] [place] CBC panel Auto (Bld)on 01-01 Erythrocyte distribution width (RBC) [Ratio] 12.7 % Normal 11.5-15.0 [facility] Comment on above: Order Comment: Speci men Type: BLOOD SPECIMEN Ordering Facility: [facility] Address: [address] [place] [address] Performed By: #### 5 8410-2 #### [facility] CLIA [id number] [address] [place] [address] [place] Hematocrit (Bld) [Volume fraction] 40.1 % Normal 36.0-46.0 [facility] Comment on above: Order Comment: Speci men Type: BLOOD SPECIMEN Ordering Facility: [facility] Address: [address] [place] [address] Performed By: #### 5 8410-2 #### [facility] CLIA [id number] [address] [place] [address] [place] Hemoglobin (Bld) [Mass/Vol] 13.6 g/dL Normal 11.5-15.5 [facility] Comment on above: Order Comment: Speci men Type: BLOOD SPECIMEN Ordering Facility: [facility] Address: [address] [place] [address] Performed By: #### 5 8410-2 #### [facility] CLIA [id number] [place] [address] [place] MCH (RBC) [Entitic mass] 29.2 pg Normal 26.0-34.0 [facility] Comment on above: Order Comment: Speci men Type: BLOOD SPECIMEN Ordering Facility: [facility] Address: [address] [place] [address] Performed By: #### 5 8410-2 #### [facility] CLIA [id number] [address] [place] [address] [place] MCHC (RBC) [Mass/Vol] 33.9 g/dL Normal 30.5-36.0 [facility] Comment on above: Order Comment: Speci men Type: BLOOD SPECIMEN Ordering Facility: [facility] Address: [address] [place] [address] Performed By: #### 5 8410-2 #### [facility] CLIA [id number] [address] [place] [address] [place] MCV (RBC) [Entitic vol] 86.2 fL Normal 80.0-100.0 [facility] Comment on above: Order Comment: Speci men Type: BLOOD SPECIMEN Ordering Facility: [facility] Address: [address] [place] [address] Performed By: #### 5 8410-2 #### [facility] CLIA [id number] [address] [place] [address] [place] Nucleated RBC (Bld) [#/Vol] 10*3/uL Normal <0.01 [facility] Comment on above: Order Comment: Speci men Type: BLOOD SPECIMEN Ordering Facility: [facility] Address: [address] [place] [address] Performed By: #### 5 8410-2 #### [facility] CLIA [id number] [address] [place] [address] [place] Platelet mean volume (Bld) [Entitic vol] 10.2 fL Normal 9.0-12.7 [facility] Comment on above: Order Comment: Speci men Type: BLOOD SPECIMEN Ordering Facility: [facility] Address: [address] [place] [address] Performed By: #### 5 8410-2 #### [facility] CLIA [id number] [address] [place] [address] [place] Platelets (Bld) [#/Vol] 237 10*3/uL Normal 150-400 [facility] Comment on above: Order Comment: Speci men Type: BLOOD SPECIMEN Ordering Facility: [facility] Address: [address] [place] [address] Performed By: #### 5 8410-2 #### [facility] CLIA [id number] [address] [place] [address] [place] RBC (Bld) [#/Vol] 4.65 10*6/uL Normal 3.90-5.20 [facility] Comment on above: Order Comment: Speci men Type: BLOOD SPECIMEN Ordering Facility: [facility] Address: [address] [place] [address] Performed By: #### 5 8410-2 #### [facility] CLIA [id number] [address] [place] [address] [place] WBC (Bld) [#/Vol] 10.30 10*3/uL Normal 3.70-11.00 [facility] Comment on above: Order Comment: Speci men Type: BLOOD SPECIMEN Ordering Facility: [facility] Address: [address] [place] [address] [place] [address] Performed By: #### 5 8410-2 #### [facility] CLIA [id number] [address] [facility] [place] [address] [place] [facility] BAS METAB 2000 PNL SERPL on 01-02-2024 Anion gap [Moles/Vol] 10 mmol/L 8 - 15 mmol/L [facility] Calcium [Mass/Vol] 9.2 mg/dL 8.5 - 10. 2 mg/dL [facility] Chloride [Moles/Vol] 103 mmol/L 98 - 107 mmol/L [facility] CO2 [Moles/Vol] 28 mmol/L 22 - 30 mmol/L [facility] Creatinine [Mass/Vol] 0.85 mg/dL 0.58 - 0.96 mg/dL [facility] GFR/1.73 sq M.predicted CKD-EPI (S/P/Bld) [Vol rate/Area] 77 - PINF [facility] Comment on above: Estimated Glomerular Filtration Rate [...] 152 mg/dL High 74 - 99 mg/dL [facility] Comment on above: The [place] Diabete s Association (ADA) provides guidance for [...] Standards of Medical Care in Diabetes 2016, [place] [employer]. Diabetes Care. 2016.39(Suppl 1). Interpretation and review of laboratory results Abnormal [facility] Potassium [Moles/Vol] 3.5 mmol/L Low 3.7 - 5.1 mmol/L [facility] Sodium [Moles/Vol] 141 mmol/L 136 - 144 mmol/L [facility] Urea nitrogen [Mass/Vol] 21 mg/dL 7 - 21 mg/dL [facility] Specimen Type: BLOOD SPECIMEN Ordering Facility: [facility] Address: [address] [place] [address] Original [facility]ing [facility] PNL BLD AUTOon 01-01 [facility] NRBC # BLD AUTO <0.01 NINF [facility] PLATELET # BLD AUTO 237 [facility] PMV BLD AUTO 10.2 fL 9.0 - 12.7 fL [facility] WBC # BLD AUTO 10.3 [facility] Erythrocyte distribution width (RBC) [Ratio] 12.7 % 11.5 - 15.0 % [facility] Hematocrit (Bld) [Volume fraction] 40.1 % 36.0 - 46.0 % [facility] Hemoglobin (Bld) [Mass/Vol] 13.6 g/dL 11.5 - 15.5 g/dL [facility] MCH (RBC) [Entitic mass] 29.2 pg 26.0 - 34.0 pg [facility] MCHC (RBC) [Mass/Vol] 33.9 g/dL 30.5 - 36.0 g/dL [facility] MCV (RBC) [Entitic vol] 86.2 fL 80.0 - 100.0 fL [facility] RBC (Bld) [#/Vol] 4.65 10*6/uL 3.90 - 5.2 0 m/uL [facility] Specimen Type: BLOOD SPECIMEN Ordering Facility: [facility] Address: [address] [place] [address] Original Ordering Provider: JORGE L HATCH [facility] CNDSon 01-02-2024 CN HNO ID: [id number] Author: JOGRE L HATCH MD Service: Orthopaedic Surgery Author Type: Physician Automobile Service Station Manager Type: Discharge Summary Filed: 01/14/2024 13:55 Note [...] mEq tablet Generic drug: potassium chloride ER Sebastian-3 Fatty Acids (FISH OIL) 360-1,200 mg Cap OZEMPIC 0.25 mg or 0.5 mg(2 mg/1.5 mL) pen Generic drug: semaglutide pregabalin 300 mg capsule Commonly known as: LYRICA SYNTHROID 150 mcg tablet Generic drug: levothyroxine TYLENOL ARTHRITIS ORAL VITAMIN D3 ORAL XANAX 0.25 mg tablet Generic drug: ALPRAZolam Where to Get Your Medications These medications were sent to [facility] [place] [id number] [place] [address] oxyCODONE IR 5 mg immediate release tablet You can get these medications from any pharmacy You don't need a prescription for these medications docusate sodium 100 mg capsule Future Appointments: SIGNATURE: Macho Salazar PA-C PATIENT NAME: Carolynn Givens DATE: 01/02/24 TIME: 3:39 PM Normal [facility] THERAPY NTon 01-02-2024 THERAPY NT HNO ID: [id number] Author: JAYDE MONROE OT/L Service: Occupational Therapy Author Type: Occupational Therapist Type: Therapy (PT/OT/Speech/Resp) Filed: 01/02/2024 15:23 Note Text: Occupational Therapy Evaluation Summary SERVICE DATE: 01/02/2024 SERVICE TIME: 1426 to 1505 ROOM: [id number] OT 6 Clicks Score: 22 Total Joint [...] Wheeled, Shower Chair, Grab Bars- Shower, Cane, Sand Polisher, Long Handled Shoe Horn PRIOR FUNCTIONAL LEVEL Within Functional Limits Pt IND 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 RN aware. COGNITION Responsiveness: Alert, Awake Follows Commands: 3-step Commands THERAPY DIAGNOSIS Reduced mobility-other, Decreased activities of daily living (ADL), Muscle Weakness (generalized), General symptoms and signs-other TREATMENT INTERVENTIONS Evaluation, Self Assisted Management ([id number]) Timed Code Treatment (minutes): 23 Skilled Treatment Time (minutes): 39 TRAINING AND EDUCATION PROVIDED Assistive Device Use, Bed Mobility, Adaptive Equipment/DME, Discharge Planning, Benefits of In-Hospital Mobility, Expected Functional Level, IADLs/Home Management, Home Set-up/Modifications, Lower Extremity Dressing, Positioning, Precautions/Restrictions, Role of Occupational Therapy, Standing Balance to Improve [place] with ADLs/Self-Care, Transfer - Bed to Chair, [...] DATE: January 02, 2024 TIME: 3:23 PM Normal [facility] THERAPY NT HNO ID: [id number] Author: GUADALUPE TERESA, PT, DPT Service: Physical Therapy Author Type: Physical Therapist Type: Therapy (PT/OT/Speech/Resp) Filed: 01/02/2024 14:55 Note Text: Physical Therapy Treatment Summary SERVICE DATE: 01/02/2024 SERVICE TIME: 1402 to 1426 ROOM: [place] [address] PT 6 Clicks Score: 19 Total Joint [...] 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 in room THERAPY DIAGNOSIS Reduced mobility-other, Difficulty walking-musculoskeletal, Abnormalities of gait and mobility-other TREATMENT INTERVENTIONS Therapeutic Activity (46533), Gait Training (90837) Timed Code Treatment (minutes): 24 Skilled Treatment [...] January 02, 2024 TIME: 2:55 PM Normal [facility] THERAPY NT HNO ID: [id number] Author: GUADALUPE TERESA PT, DPT Service: Physical Therapy Author Type: Physical Therapist Type: Therapy (PT/OT/Speech/Resp) Filed: 01/02/2024 10:06 Note Text: Physical Therapy Treatment Summary SERVICE DATE: 01/02/2024 SERVICE TIME: 854 to 942 ROOM: [place] [address] PT 6 Clicks Score: 19 Total Joint [...] 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 Agreeable to PT treatment THERAPY DIAGNOSIS Reduced mobility-other, Muscle Weakness (generalized), Difficulty walking-musculoskeletal, Abnormalities of gait and mobility-other, Unsteadiness on feet TREATMENT INTERVENTIONS Gait Training (16804), Therapeutic Activity (87352) Timed Code Treatment (minutes): 48 Skilled Treatment [...] January 02, 2024 TIME: 10:06 AM Normal [facility] US LEG VEIN DVT UNL VAS LABo n 01-02-2024 US LEG VEIN DVT UNL VAS LAB Non-Invasive Vascular Laboratory [facility] Lower Extremity Venous Duplex Unilateral - Right [...] physician: Rizwana Salazar MD, YASMIN Final CC [employer] [facility] Image : [id number] See Link below for Image Normal [facility] ANES POSTPROC EVALon 024 ANES POSTPROC EVAL HNO ID: [id number] Author: QUINN SALAZAR MD Service: Anesthesiology Author Type: Anesthesiologist Type: Anesthesia Postprocedure Evaluation Filed: 01/01/2024 18:58 Note Text: POST ANESTHESIA EVALUATION NOTE : 1960 Procedure Summary Date: 01/01/24 Room / Location: OR06 / AV OR Anesthesia Start: 1306 [...] January 01, 2024 TIME: 6:58 PM CSN: [id number] [facility] ANES PRE-OPon 01-01-2024 ANES PRE-OP HNO ID: [id number] Author: QUINN SALAZAR MD Service: Anesthesiology Author Type: Anesthesiologist Type: Anesthesia Preprocedure Evaluation Filed: 01/01/2024 12:28 Note Text: ANESTHESIOLOGY DAY OF SURGERY NOTE : 1960 Procedure Information Date/Time: 01/01/24 1245 Procedure: ARTHROPLASTY REPLACE JOINT TOTAL KNEE JOÃO/EX STAY (Right: Knee) Location: [place] [address] / OR Surgeons: Jorge L Hatch MD Estimated [...] January 01, 2024 TIME: 12:23 PM CSN: [id number] [facility] BRIEF OP NOTon 01-01-2024 BRIEF OP NOT HNO ID: [id number] Author: JORGE L HATCH MD Service: Orthopaedic Surgery Author Type: Physician Type: Brief Op Note Filed: 01/01/2024 14:49 Note Text: TOTAL KNEE ARTHROPLASTY BRIEF OPERATIVE / PROCEDURE NOTE LOG ID: [id number] Surgery/Procedure Date: 01/01/2024 Incision/Procedure Start Time: 1:53 PM Incision Close/Procedure End Time: Surgeon(s)/Proceduralist( s) and Automobile Service Station Manager(s): Surgeons and Role: * Jorge L Hatch MD - Primary Physician Automobile Service Station Manager: Zulma Welsh PA-C; Macho Salazar PA-C Procedure(s): [...] DATE: January 01, 2024 TIME: 2:47 PM [facility] OPERATIVE NOon 01-01-2024 OPERATIVE NO HNO ID: [id number] Author: JORGE L HATCH MD Service: Orthopaedic Surgery Author Type: Physician Type: Operative Report Filed: 01/01/2024 14:50 Note Text: KNEE ARTHROPLASTY BRIEF OPERATIVE / PROCEDURE NOTE LOG ID: [id number] Surgery/Procedure Date: 01/01/2024 Incision/Procedure Start Time: 1:53 PM Incision Close/Procedure End Time: Surgeon(s)/Proceduralist( s) and Automobile Service Station Manager(s): Surgeons and Role: * Jorge L Hatch MD - Primary Physician Automobile Service Station Manager: Zulma Welsh PA-C; Macho Salazar PA-C Procedure(s): [...] the medial compartment where she is completely iimm-zi-mbwx with erosions into the tibial plateau large [...] saw and sized to a 32 millimeter. Quality Control Tester holes were then drilled of the distal femur, the undersurface of the patella, and a V keel slot and 4 agricultural aircraft pilot holes were then prepared the proximal tibia. [...] closure assistance was provided by the Physician Automobile Service Station Manager Service and necessary for optimum results for surgery. Physician Automobile Service Station Manager's were present because there was no qualified [...] January 01, 2024 TIME: 2:47 PM Normal [facility] THERAPY [facility] 01-01-2024 THERAPY NT HNO ID: [id number] Author: FRANCA LABOY, PT, DPT Service: Physical Therapy Author Type: Physical Therapist Type: Therapy (PT/OT/Speech/Resp) Filed: 01/01/2024 18:15 Note Text: Physical Therapy Evaluation Summary SERVICE DATE: 01/01/2024 SERVICE TIME: 1729 to 1753 ROOM: [place] [address] PT 6 Clicks Score: 18 Total Joint Replacement Discharge Readiness: Pending Physical Therapy Clearance DISCHARGE RECOMMENDATIONS Outpatient PT Recommended Discharge Disposition Comments: Pt plans to have OP out in [place] but needs to get appt set Recommended [...] Pt IND ADLs and 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, + 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, 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 SUBJECTIVE Pt in bed My knee is really starting to hurt THERAPY DIAGNOSIS Reduced mobility-other TREATMENT INTERVENTIONS Evaluation, Gait Training (08110) Timed Code Treatment (minutes): 9 Skilled Treatment [...] DATE: January 01, 2024 TIME: 6:15 PM [facility] transthoracic [facility] [place] [address] Echocardiogram Signed Patient: Carolynn Givens MR#: [id number] : 1960 Acct:[id number] Age/Sex: 63 / F ADM Date: 12/20/23 Loc: Room: Type: [facility] Attending Dr: Brooks Calixto DO Ordering Provider: Brooks Calixto DO Date of Service: 12/20/23/ ECH/ECH echo transthoracic: Murmur, Edema Copies to: MD Brooks Hagen DO Carolynn Alcantar Patient Location: : 1960 Gender: Female (MM/DD/YYYY) [...] Signed By: Edgar Hallman MD 12/20/23 [address] [place] [facility] BI MAMMOGRAM SCREENING TOMOS YNTDANAIS BILATERALon 12-12-2023 BI MAMMOGRAM SCREENING TOMOSYNTHESIS BILATERAL [...] [Moles/Vol] 9 mmol/L 8 - 15 mmol/L [facility] Calcium [Mass/Vol] 9.6 mg/dL 8.5 - 10. 2 mg/dL [facility] Chloride [Moles/Vol] 99 mmol/L 98 - 107 mmol/L [facility] CO2 [Moles/Vol] 32 mmol/L High 22 - 30 mmol/L [facility] Creatinine [Mass/Vol] 0.80 mg/dL 0.58 - 0.96 mg/dL [facility] GFR/1.73 sq M.predicted among non-blacks MDRD (S/P/Bld) [Vol rate/Area] 83 mL/min/{1.73_m2} - PINF [facility] Comment on above: Estimated Glomerular Filtration Rate [...] [Mass/Vol] 80 mg/dL 74 - 99 mg/dL [facility] Comment on above: The [place] Diabete s Association (ADA) provides guidance for [...] Standards of Medical Care in Diabetes 2016, [place] Diabetes Association. Diabetes Care. 2016.39(Suppl 1). Interpretation and review of laboratory results Abnormal [facility] Potassium [Moles/Vol] 3.5 mmol/L Low 3.7 - 5.1 mmol/L [facility] Sodium [Moles/Vol] 140 mmol/L 136 - 144 mmol/L [facility] Urea nitrogen [Mass/Vol] 13 mg/dL 7 - 21 mg/dL [facility] Anion gap [Moles/Vol] 9 mmol/L Normal 8-15 [facility] Comment on above: Order Comment: Speci men Type: BLOOD SPECIMEN Ordering Facility: [facility] Address: [address] [place] [address] Performed By: #### 2 4321-2 #### [facility] CLIA [id number] [address] [place] [address] [place] Calcium [Mass/Vol] 9.6 mg/dL Normal 8.5-10.2 [facility] Comment on above: Order Comment: Speci men Type: BLOOD SPECIMEN Ordering Facility: [facility] Address: [address] [place] [address] Performed By: #### 2 4321-2 #### [facility] CLIA [id number] [address] [place] [address] [place] Chloride [Moles/Vol] 99 mmol/L Normal 98-107 [facility] Comment on above: Order Comment: Speci men Type: BLOOD SPECIMEN Ordering Facility: [facility] Address: [address] [place] [address] Performed By: #### 2 4321-2 #### [facility] CLIA [id number] [address] [place] [address] [place] CO2 [Moles/Vol] 32 mmol/L High 22-30 [facility] ital Comment on above: Order Comment: Speci men Type: BLOOD SPECIMEN Ordering Facility: [facility] Address: [address] [place] [address] Performed By: #### 2 4321-2 #### [facility] CLIA [id number] [address] [place] [address] [place] Creatinine [Mass/Vol] 0.80 mg/dL Normal 0.58-0.96 [facility] Comment on above: Order Comment: Iván fernandez Type: BLOOD SPECIMEN Ordering Facility: [facility] Address: [address] [place] [address] Performed By: #### 2 4321-2 #### [facility] CLIA [id number] [address] [facility] [place] [address] [place] Creatinine and Glomerular filtration rate.predicted panel (S/P/Bld) 83 mL/min/1.73m??? Normal >=60 [facility] Comment on above: Order Comment: Iván fernandez Type: BLOOD SPECIMEN Ordering Facility: [facility] Address: [address] [place] [address] Result Comment: Viviane mated Glomerular Filtration Rate [...] GFR. Performed By: #### 2 4321-2 #### [facility] CLIA [id number] [address] [facility] [place] [address] [place] Glucose [Mass/Vol] 80 mg/dL Normal 74-99 [facility] Comment on above: Order Comment: Iván fernandez Type: BLOOD SPECIMEN Ordering Facility: [facility] Address: [address] [place] [address] Result Comment: The [place] Diabetes Association (ADA) provides guidance for cutoff [...] Standards of Medical Care in Diabetes 2016, [place] Diabetes Association. Diabetes Care. 2016.39(Suppl 1). Performed By: #### 2 4321-2 #### [facility] CLIA [id number] [address] [place] [address] [place] Potassium [Moles/Vol] 3.5 mmol/L Low 3.7-5.1 [facility] Comment on above: Order Comment: Speci men Type: BLOOD SPECIMEN Ordering Facility: [facility] Address: [address] [place] [address] Performed By: #### 2 4321-2 #### [facility] IA [id number] [address] [place] [address] [place] Sodium [Moles/Vol] 140 mmol/L Normal 136-144 [facility] Comment on above: Order Comment: Speci men Type: BLOOD SPECIMEN Ordering Facility: [facility] Address: [address] [place] [address] Performed By: #### 2 4321-2 #### [facility] IA [id number] [address] [place] [address] [place] Urea nitrogen [Mass/Vol] 13 mg/dL Normal 7-21 [facility] Comment on above: Order Comment: Speci men Type: BLOOD SPECIMEN Ordering Facility: [facility] Address: [address] [place] [address] Performed By: #### 2 4321-2 #### [facility] IA [id number] [address] [place] [address] [place] CBC panel Auto (Bld)on 12-10 Erythrocyte distribution width (RBC) [Ratio] 14.8 % 11.5 - 15.0 % [facility] Hematocrit (Bld) [Volume fraction] 47.4 % High 36.0 - 46.0 % [facility] Hemoglobin (Bld) [Mass/Vol] 14.8 g/dL 11.5 - 15.5 g/dL [facility] Interpretation and review of laboratory results Abnormal [facility] MCH (RBC) [Entitic mass] 29.6 pg 26.0 - 34.0 pg [facility] MCHC (RBC) [Mass/Vol] 31.2 g/dL 30.5 - 36.0 g/dL [facility] MCV (RBC) [Entitic vol] 94.8 fL 80.0 - 100.0 fL [facility] Nucleated RBC (Bld) [#/Vol] NINF [facility] Platelet mean volume (Bld) [Entitic vol] 9.5 fL 9.0 - 12.7 fL [facility] Platelets (Bld) [#/Vol] 218 10*3/uL [facility] RBC (Bld) [#/Vol] 5.00 10*6/uL 3.90 - 5.2 0 m/uL [facility] WBC (Bld) [#/Vol] 6.19 10*3/uL [facility] Erythrocyte distribution width (RBC) [Ratio] 14.8 % Normal 11.5-15.0 [facility] Comment on above: Order Comment: Iván fernandez Type: BLOOD SPECIMENOrdering Facility: [facility] Address: [address] [place] [address] Performed By: #### 5 8410-2 ####[facility] [id number] [address] [place] Hematocrit (Bld) [Volume fraction] 47.4 % High 36.0-46.0 [facility] Comment on above: Order Comment: Iván fernandez Type: BLOOD SPECIMENOrdering Facility: [facility] Address: [address] [place] [address] Performed By: #### 5 8410-2 ####[facility] [id number] [place] [address] [place] Hemoglobin (Bld) [Mass/Vol] 14.8 g/dL Normal 11.5-15.5 [facility] Comment on above: Order Comment: Malicki men Type: BLOOD SPECIMENOrdering Facility: [facility] Address: [address] [place] [address] Performed By: #### 5 8410-2 ####[facility] [id number] [place] [address] [place] MCH (RBC) [Entitic mass] 29.6 pg Normal 26.0-34.0 [facility] Comment on above: Order Comment: Speci men Type: BLOOD SPECIMENOrdering Facility: [facility] Address: [address] [place] [address] Performed By: #### 5 8410-2 ####[facility] [id number] [address] [place] MCHC (RBC) [Mass/Vol] 31.2 g/dL Normal 30.5-36.0 [facility] Comment on above: Order Comment: Speci men Type: BLOOD SPECIMENOrdering Facility: [facility] Address: [address] [place] [address] Performed By: #### 5 8410-2 ####[facility] [id number] [place] [address] [place] MCV (RBC) [Entitic vol] 94.8 fL Normal 80.0-100.0 [facility] Comment on above: Order Comment: Speci men Type: BLOOD SPECIMENOrdering Facility: [facility] Address: [address] [place] [address] Performed By: #### 5 8410-2 ####[facility] [id number] [place] [address] [place] Nucleated RBC (Bld) [#/Vol] 10*3/uL Normal <0.01 [facility] Comment on above: Order Comment: Speci men Type: BLOOD SPECIMENOrdering Facility: [facility] Address: [address] [place] [address] Performed By: #### 5 8410-2 ####[facility] [id number] [address] [place] Platelet mean volume (Bld) [Entitic vol] 9.5 fL Normal 9.0-12.7 [facility] Comment on above: Order Comment: Speci men Type: BLOOD SPECIMENOrdering Facility: [facility] Address: [address] [place] [address] Performed By: #### 5 8410-2 ####[facility] [id number] [place] [address] [facility] [place] Platelets (Bld) [#/Vol] 218 10*3/uL Normal 150-400 [facility] Comment on above: Order Comment: Speci men Type: BLOOD SPECIMENOrdering Facility: [facility] Address: [address] [place] [address] Performed By: #### 5 8410-2 ####[facility]ORY[facility] [id number] [place] [address] [place] RBC (Bld) [#/Vol] 5.00 10*6/uL Normal 3.90-5.20 [facility] Comment on above: Order Comment: Speci men Type: BLOOD SPECIMENOrdering Facility: [facility] Address: [address] [place] [address] Performed By: #### 5 8410-2 ####[facility]ORY[facility]IA [id number] [place] [address] [facility] [place] WBC (Bld) [#/Vol] 6.19 10*3/uL Normal 3.70-11.00 [facility] Comment on above: Order Comment: Speci men Type: BLOOD SPECIMENOrdering Facility: [facility] Address: [address] [place] [address] Performed By: #### 5 8410-2 ####[facility] [id number] [place] [address] [facility] [place] [facility] CONFIRM BLOOD TYPEon ABO O [facility] Specimen Type: BLOOD SPECIMEN Ordering [facility]: [facility] Address: [address] [place] [address] [facility] CLIA [id number] [address] [place] [address] [facility] [place] [facility] CONFIRM BLOOD TYPEon 024 ABO O Normal [facility] Comment on above: Order Comment: Speci men Type: BLOOD SPECIMEN Order[facility]: [facility] Address: [address] [place] [address] Performed By: #### C ONABO #### [facility] CLIA [id number] [address] [place] [address] [place] Rh Nom (Bld) Positive Normal [facility] Comment on above: Order Comment: Speci men Type: BLOOD SPECIMEN Order[facility] Address: [address] [place] [address] Performed By: #### C ONABO #### [facility] CLIA [id number] [address] [place] [address] [facility] [place] ABO group Nom (Bld) O [facility] HISTORY PHYSICALon HISTORY PHYSICAL HNO ID: [id number] Author: PACHECO VILLELA PA-C Service: ? Author Type: Physician Automobile Service Station Manager Type: H&P Filed: 12/23/2023 09:36 Note Text: [...] complete echo vijaya. As patient works at [employer] she will schedule and complete it there. [...] (MODERNA) 02 (more content not included)... Normal [facility] HbA1c (Bld)on 12-11-2023 Average glucose Estimated from glycated hemoglobin (Bld) [Mass/Vol] 128 mg/dL Normal [facility] Comment on above: Order Comment: Iván fernandez Type: BLOOD SPECIMEN Order[facility]: [facility] Address: [address] [place] [address] Result Comment: eAG: (Estimated average glucose) is a calculated value from HgbA1c and is customer loyalty representative of the average blood glucose level in the last 2-3 month period. Performed By: #### 5 5454-3 #### [facility] CLIA [id number] [address] [place], [place] [address] [address] [place] HbA1c (Bld) [Mass fraction] 6.1 % High 4.3-5.6 [facility] Comment on above: Order Comment: Iván fernandez Type: BLOOD SPECIMEN Order[facility]: [facility] Address: [address] [place] [address] Result Comment: [place] Diabetes Association guidelines indicate that patients with HgbA1c in the range 5.7-6.4% are at increased risk for development of diabetes, and intervention by lifestyle modification may be beneficial. HgbA1c greater or equal to 6.5% is considered diagnostic of diabetes. Performed By: #### 5 5454-3 #### [facility] CLIA [id number] [address] [place] [address] [place] Laboratory - Blood bankon Rh Nom (Bld) Positive [facility] No Panel Informationon 12-10 [facility] TYPE AND SCREEN,30 DAYon ABO O Normal [facility] Comment on above: Order Comment: Iván fernandez Type: BLOOD SPECIMEN [facility] Address: [address] [place] [address] Performed By: #### T SCR30 #### [facility] [place] [id number] [place] Rh Nom (Bld) Positive Normal [facility] Comment on above: Order Comment: Iván fernandez Type: BLOOD SPECIMEN [facility] Address: [address] [place] [address] Performed By: #### T SCR30 #### [facility] [id number] [address] [facility] ABO group Nom (Bld) O [facility] Blood group antibody screen Ql Negative [facility] Rh Nom (Bld) Positive [facility] CNOVon 11-18-2023 CNOV Office Visit (VASSAV ) ----- CAROLYNN GIVENS ([id number]) 1960 F Date Time Provider Department 11/18/23 9:45 AM RIZWANA SALAZAR During your visit today, we recorded the following information about you: Rizwana Salazar MD 11/18/2023 3:55 PM Signed [facility] [place] DEPARTMENT OF VASCULAR SURGERY OUTPATIENT VISIT DATE November 18, 2023 OUTPATIENT VISIT TYPE CONSULTATION SERVICE DATE: 11/18/2023 SERVICE TIME: 9:53 AM PRIMARY CARE PHYSICIAN: Dr Bob Calixto ([facility]) REFERRING PROVIDER: Self Consult requested for an [...] reviewed for today's visit: CAROTID BILATERAL Order: [id number] [facility] [address] [place] [address] Vascular Lab Report [facility] US CAROTID ARTERY DUPLEX BILATERAL Patient Name: CAROLYNN Wilburn Physician: [id number] Eddie Marie MD Study Date: 09/25/2023 Ordering Provider: [id number] JACK BARBOSA MRN/PID: [id number] Fellow: Technologist: Carolynn Olvera RVT, [facility] Date of /Age: 405/25/1960 / 63 years Technologist 2: Gender: F Admission Status: Outpatient Location Performed: [facility] Diagnosis/ICD: Occlusion and stenosis of bilateral carotid arteries-I65.23 Indication: Carotid Occlusion/Stenosis w/o infarct CPT Codes: 28772 Cerebrovascular Carotid Duplex scan complete Pertinent History: Carotid surgery. RIGHT CEA. CONCLUSIONS: Right Carotid: Findings are consistent with less than 50% stenosis of the right proximal internal carotid artery. Laminar flow seen by color (more content not included)... Normal [facility] No Panel Informationon 10-23 Razia Cruz MA 024 7:33 AM L Inj/Asp: L knee on 10/24/2023 8:25 AM Indications: pain Details: 22 G needle Medications: 1 mL betamethasone acetate-betamethasone sodium phosphate 6 (3-3) MG/ML [facility] No Panel Informationon 10-21 Tracey Valenzuela DO [...] discussed. Consent was given by the patient. [facility] XR Knee - right 1 or 2 Views on 10-22-2023 Imaging Result: X-rays AP weight-bearing bilateral knees and lateral of the right knee demonstrate medial compartment collapse with oeey-re-gwfp and subchondral sclerosis and varus alignment bilateral knees. No fractures. Impression: Advanced osteoarthritis bilateral knees Willis Valenzuela D.O. [facility] Radiology Study observation (narrative) [facility] US CAROTID ARTERY DUPLE X BILATERALon 09-25-2023 [facility] US CAROTID ARTERY DUPLEX BILATERAL [facility] [address] [facility] [place] [address] Vascular Lab Report [facility] US CAROTID ARTERY DUPLEX BILATERAL Patient Name: CAROLYNN GIVENS Reading Physician: [id number] Eddie Marie MD Study Date: 09/25/2023 Ordering Provider: [id number] JACK BARBOSA MRN/PID: [id number] Fellow: Technologist: Carolynn Olvera RVT, [facility] Date of /Age: 405/25/1960 / 63 years Technologist 2: Gender: F Admission Status: Outpatient Location Performed: [facility] Diagnosis/ICD: Occlusion and stenosis of bilateral carotid arteries-I65.23 Indication: Carotid Occlusion/Stenosis w/o infarct CPT Codes: 28980 Cerebrovascular Carotid Duplex scan complete Pertinent History: [...] Proximal 140 cm/s Right ICA/CCA Ratio 2.1 [id number] Eddie Marie MD Final Normal [facility] Refillon 08-10-2023 Refill [id number] Carolynn Givens 1960 F Date Provider Department Center 08/10/2023 LIBRADO JORDI [facility] SURG Second Fl Family History Problem Relation Age of Onset Colon cancer Mother Diabetic kidney disease Father Factor V Leiden deficiency Other Comments: siblings and grandchildren Family Status - Relation Status Age at Mother Father Other Reason for Visit and Comments: Med Change Request [411] [facility] 36on 07-19-2023 36 Discussed with clement [...] different pain management provider. Referred her to [facility] pain management. Provided phone number [...] Verbalizes understanding and is in agreement. Normal [facility] Erroneous Encounteron 2023 Erroneous Encounter [id number] GivensrSiramElda 1960 F Date Provider Department Center 07/19/2023 JORDI PAVON [facility] SURG Second Fl Family History Problem Relation Age of Onset Colon cancer Mother Diabetic kidney disease Father Factor V Leiden deficiency Other Comments: siblings and grandchildren Family Status - Relation Status Age at Mother Father Other Reason for Visit and Comments: Error (VOID this visit) [77] Normal [facility] Telephoneon 07-19-2023 Telephone [id number] Elda Givens 1960 F Date Provider Department Center 07/19/2023 148-TALONVICKY [facility] SURG Second Fl Family History Problem Relation Age of Onset Colon cancer Mother Diabetic kidney disease Father Factor V Leiden deficiency Other Comments: siblings and grandchildren Family Status - Relation Status Age at Mother Father Other Normal [facility] Consulton 07-18-2023 Consult [id number] Elda Givens 1960 F Date Provider Department Center 07/18/2023 148-NICK JORDI [facility] SURG Second Fl Family History Problem Relation Age of Onset Colon cancer Mother Diabetic kidney disease Father Factor V Leiden deficiency Other Comments: siblings and grandchildren Family Status - Relation Status Age at Mother Father Other Level of Service:72149 UT OFFICE/OUTPATIENT NEW MODERATE MDM 45 MINUTES Reason for Visit and Comments: Consult [484] - lumbosacral spondylosis without myelopathy-will bring disk Normal [facility] MR LUMBAR SPINE WO CONTRASTo n [...] TabletTAKE 1 TABLET DAILY DIRECTED. Multivital TABS Sebastian 3 CAPS Synthroid 125 MCG Oral TabletTAKE 1 TABLET DAILY DIRECTED. Vitals Vital Signs Recorded: 19Oct2022 10:50AM Heart Rate78 Fxytpajx964 Droqhjpkc36 Height5 ft 4 in Rggrms204 lb BMI Bqzjaneiye64.14 kg/m2 BSA Calculated2.07 Tobacco Useb) No Falls Screening (Age 18+)a) No falls within the last year O2 Qjdzyhffdd02 Physical Exam Constitutional - No acute distress, well appearing and well nourished. Psychiatric - Orientation to person, place, and time. Appropriate mood and affect Neurologic - Cranial nerves intact, motor strength was normal, sensation (more content not included)... Normal Hab Housing Tobacco Screening.on 023 Fall risk assessment a) No falls within the last year [facility] [facility] Work Phone: Tobacco use status [facility] b) No [facility] [facility] Work Phone: Blood Pressure Cuff Sizeon 0 07-28-2021 Fall risk assessment a) No falls within the last year [facility] [facility] Work Phone: Tobacco use status [facility] b) No [facility] [facility] Work Phone: Blood Pressure Cuff Size Adult [facility] [facility] Work Phone: Screening Mammogram, [facility] 07-19-2021 Screening Mammogram, Bilateral EXAMINATION: Screening Mammogram [...] VERY IMPORTANT TO YOUR HEALTH. THE CURRENT [employer] GUIDELINES RECOMMEND ANNUAL MAMMOGRAPHY BEGINNING AT AGE 40. THIS FACILITY UTILIZES A REMINDER SYSTEM TO ENSURE ALL PATIENTS RECEIVE A REMINDER NOTIFICATION AT THE APPROPRIATE TIME BASED ON THE RECOMMENDATIONS OF THIS EXAM. 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 ACCREDITED BY THE APR AND FDA. Report reported and signed by Blanche Marion on 07/24/2021 1115 Normal [facility] Hr Payroll Coordinator VASC LAB Carotid Artery Dupl ex Ultrasounon 07-14-2021 VASC LAB Carotid Artery Duplex Ultrasoun [facility] [address] [facility] [place] [address] Vascular Lab Report Carotid Artery Duplex Ultrasound Patient Name: CAROLYNN GIVENS Reading Physician: [id number] Barbosa MD Study Date: 07/14/2021 Referring Physician: Rima BARBOSA MRN/PID: [id number] PCP: Accession/Order#: [id number] CC Report to: Date of : 1960 Technologist: Carolynn Olvera RDMS, RVT Gender: F Technologist 2: Admission Status: Outpatient Location Performed: [facility] Diagnosis/ICD: I65.22-Occlusion and stenosis of left carotid artery Procedure/CPT: 26662 Cerebrovascular Carotid Duplex scan complete-81745 Pertinent History: HTN, CAD and Carotid surgery. [...] cm/s Right Left ICA/CCA Ratio 1.5 0.9 02643 Jack Barbosa MD Final Normal [place] X[facility] Spine Lumbar 4+ Views*on 06-26-2021 XR [...] by Elvis Cochran on 06/26/2021 1617 Normal [facility] CAROTID DUPLEX SCAN (HL)on 1 CAROTID DUPLEX SCAN (HL) CAROLYNN GIVENS [id number] 1960 12/11/2017 57y [id number] Sugey [id number] NaN F op Outpatient CARDIOVASCULAR LAB Referring: Rizwana Salazar J. Reading: Rizwana Salazar MD, RPVI, FACS RZ Procedure Info: 67115 - Duplex scan of extracranial arteries; complete [...] vertebral artery was patent with antegrade flow. [facility] CAROLYNN GIVENS [id number] [place] [address] [id number] 60 Rizwana Salazar MD CAROTID DUPLEX SCAN [...] cm/sec Vertebral 22.8 cm/sec Rizwana Salazar MD, [facility]12/11/2017 14:13:45 [facility] GIVENSCAROLYNN CARLSON [id number] [address] [place] [address] [id number] 60 Rizwana Salazar MD CAROTID DUPLEX SCAN Normal [facility] CAROTID DUPLEX SCAN (HL)on 05-29-2017 CAROTID DUPLEX SCAN (HL) CAROLYNN GIVENS [id number] 1960 05/29/2017 57y [id number] NaN [id number] NaN F Outpatient CARDIOVASCULAR LAB Referring: Rizwana Salazar J. Reading: Rizwana Salazar MD, RPVI, [facility] Procedure Info: 66712 - Duplex scan of extracranial arteries; complete [...] external carotid artery was patent, within normal [facility] CAROLYNN GIVENS Ortiz [id number] [address] [address] [id number] 60 Rizwana Salazar MD CAROTID DUPLEX SCAN [...] cm/sec Rizwana Salazar MD, RPVI, FACS05/29/2017 15:11:15 [facility] CAROLYNN GIVENS [id number] [place] [address] [id number] 60 Rizwana Salazar MD CAROTID DUPLEX SCAN Normal [facility] Vital Signs Date Time Vital Sign Value Performing Clinician Facility 12-11-2023 13:43-0400 Body height 165.1 cm Pacc 1 Other Phone: [facility] 12-11-2023 13:43-0400 Body mass index (BMI) [Ratio] 38.15 kg/m2 Pacc 1 Other Phone: [facility] 12-11-2023 13:43-0400 Body temperature 97.3 [degF] Pacc 1 Other Phone: [facility] 12-11-2023 13:43-0400 Body weight 104 kg Pacc 1 Other Phone: [facility] 12-11-2023 13:43-0400 Diastolic blood pressure 84 mm[Hg] Pacc 1 Other Phone: [facility] 12-11-2023 13:43-0400 Heart rate 77 /min Pacc 1 Other Phone: [facility] 12-11-2023 13:43-0400 Respiratory rate 18 /min Pacc 1 Other Phone: [facility] 12-11-2023 13:43-0400 SaO2% (BldA) [Mass fraction] 97 % Pacc 1 Other Phone: [facility] 12-11-2023 13:43-0400 Systolic blood pressure 140 mm[Hg] Pacc 1 Other Phone: [facility] 11-13-2023 11:54-0400 Body height 165.1 cm Brooks Mcclellan DO Work Phone: [facility] 11-13-2023 11:54-0400 Body mass index (BMI) [Ratio] 33.28 kg/m2 Brooks Mcclellan DO Work Phone: [facility] 11-13-2023 11:54-0400 Body temperature 96.6 [degF] Brooks Mcclellan DO Work Phone: [facility] 11-13-2023 11:54-0400 Body weight 90.72 kg Brooks Mcclellan DO Work Phone: [facility] 11-13-2023 11:54-0400 Diastolic blood pressure 70 mm[Hg] Brooks Mcclellan DO Work Phone: [facility] 11-13-2023 11:54-0400 Heart rate 71 /min Brooks Mcclellan DO Work Phone: [facility] 11-13-2023 11:54-0400 SaO2% (BldA) [Mass fraction] 96 % Brooks Mcclellan DO Work Phone: [facility] 11-13-2023 11:54-0400 Systolic blood pressure 126 mm[Hg] Brooks Mcclellan DO Work Phone: [facility] 10-24-2023 07:48-0400 Body height 165.1 cm Montana Pocos DO Work Phone: [facility] 10-24-2023 07:48-0400 Body mass index (BMI) [Ratio] 33.28 kg/m2 Montana Pocos DO Work Phone: [facility] 10-24-2023 07:48-0400 Body weight 90.72 kg Montana Pocos DO Work Phone: [facility] 10-19-2022 10:50-0400 Body height 162.56 cm Dory Santosy Work Phone: BR-Bsaxwmvpfw-Mrfluxn e 320 Work Phone: 10-19-2022 10:50-0400 Body mass index (BMI) [Ratio] 39.14 kg/m2 Dory Santosy Work Phone: UE-Bzowenzzwr-Xiyjaub e 320 Work Phone: 10-19-2022 10:50-0400 Body surface area Derived from formula 2.07 m2 Dory Wells Work Phone: DR-Uwaodonkwl-Hrtohnh e 320 Work Phone: 10-19-2022 10:50-0400 Body weight 103.42 kg Dory Santosy Work Phone: JD-Uudjxxwgao-Mrhqvgn e 320 Work Phone: 10-19-2022 10:50-0400 Diastolic blood pressure 80 mm[Hg] Dory Santosy Work Phone: XR-Usxywusgob-Mkyquxg e 320 Work Phone: 10-19-2022 10:50-0400 Heart rate 78 /min Dory Santosy Work Phone: OR-Uccmgsevep-Qjuchft e 320 Work Phone: 10-19-2022 10:50-0400 SaO2% (BldA) [Mass fraction] 96 % Dory Wells Work Phone: VY-Ofxqydwwif-Vrcjrql e 320 Work Phone: 10-19-2022 10:50-0400 Systolic blood pressure 132 mm[Hg] Dory Wells Work Phone: NO-Moqqsysczt-Uoggtps e 320 Work Phone: 05-14-2022 13:00-0400 Diastolic blood pressure 70 mm[Hg] Jatin Saldana Other [employer] Other 05-14-2022 13:00-0400 SaO2% (BldA) [Mass fraction] 98 % Jatin Saldana Other [employer] Other 05-14-2022 13:00-0400 Systolic blood pressure 120 mm[Hg] Jatin Saldana Other [employer] Other 05-09-2022 14:30-0400 Body weight 102.06 kg Iza Blades Other [employer] Other 05-09-2022 14:30-0400 Diastolic blood pressure 100 mm[Hg] Iza Blades Other [employer] Other 05-09-2022 14:30-0400 Systolic blood pressure 140 mm[Hg] Iza Blades Other [employer] Other 04-24-2022 09:15-0500 Diastolic blood pressure 84 mm[Hg] Jatin Saldana Other [employer] Other 04-24-2022 09:15-0500 SaO2% (BldA) [Mass fraction] 98 % Jatin Saldana Other [employer] Other 04-24-2022 09:15-0500 Systolic blood pressure 130 mm[Hg] Jatin Saldana Other [employer] Other 03-26-2022 12:45-0500 Diastolic blood pressure 70 mm[Hg] Jatin Shana Other [employer] Other 03-26-2022 12:45-0500 SaO2% (BldA) [Mass fraction] 99 % Jatin Saldana Other [employer] Other 03-26-2022 12:45-0500 Systolic blood pressure 118 mm[Hg] Jatin Shana Other [employer] Other 03-07-2022 16:00-0500 Body weight 102.6 kg Jatin Saldana Other [employer] Other 03-07-2022 16:00-0500 Diastolic blood pressure 84 mm[Hg] Jatin Shana Other [employer] Other 03-07-2022 16:00-0500 SaO2% (BldA) [Mass fraction] 95 % Jatin Saldana Other [employer] Other 03-07-2022 16:00-0500 Systolic blood pressure 130 mm[Hg] Jatin Shana Other [employer] Other 07-28-2021 11:14-0400 Body height 162.56 cm Dory Wells Work Phone: [place] [address] Work Phone: 07-28-2021 11:14-0400 Body mass index (BMI) [Ratio] 35.02 kg/m2 Dory Wells Work Phone: WJ-Nizlfbbgfk-Ujrskgi e 320 Work Phone: 07-28-2021 11:14-0400 Body surface area Derived from formula 1.97 m2 Dory Wells Work Phone: JV-Sbhkraxsjk-Uoevwuf e 320 Work Phone: 07-28-2021 11:14-0400 Body weight 92.53 kg Dory Wells Work Phone: TR-Llfmyhzobh-Tkzqvnt e 320 Work Phone: 07-28-2021 11:14-0400 Diastolic blood pressure 74 mm[Hg] Dory Wells Work Phone: JT-Kqyyfhagkw-Ssovrie e 320 Work Phone: 07-28-2021 11:14-0400 Heart rate 82 /min Dory Wells Work Phone: TS-Yqymmjzjpk-Rpzsdem e 320 Work Phone: 07-28-2021 11:14-0400 SaO2% (BldA) [Mass fraction] 95 % Dory Wells Work Phone: CZ-Qkyesnslbc-Etgwjmb e 320 Work Phone: 07-28-2021 11:14-0400 Systolic blood pressure 150 mm[Hg] Dory Wells Work Phone: HS-Hpujixumgy-Wpcwbdu e 320 Work Phone: 06-22-2020 13:49-0400 Body height 160.02 cm Dory Wells Work Phone: [employer] Work Phone: 06-22-2020 13:49-0400 Body mass index (BMI) [Ratio] 38.62 kg/m2 Dory Wells Work Phone: [facility] Vasc [facility] Work Phone: 06-22-2020 13:49-0400 Body surface area Derived from formula 2.01 m2 Dory Wells Work Phone: [facility] Work Phone: 06-22-2020 13:49-0400 Body weight 98.88 kg Dory Wells Work Phone: [facility] Work Phone: 06-22-2020 13:49-0400 Diastolic blood pressure 82 mm[Hg] Dory Wells Work Phone: [facility] Work Phone: 06-22-2020 13:49-0400 Heart rate 65 /min Dory Wells Work Phone: [facility] Work Phone: 06-22-2020 13:49-0400 SaO2% (BldA) [Mass fraction] 98 % Dory Wells Work Phone: [facility] Work Phone: 06-22-2020 13:49-0400 Systolic blood pressure 132 mm[Hg] Dory Wells Work Phone: [facility] Work Phone: Encounters Encounter Date Encounter Type Care Provider Facility Start: 04-30-2024 End: 04-30-2024 ambulatory BOLA AKHTAR Not Available Start: 04-30-2024 End: 04-30-2024 Patient encounter procedure Bola Akhtar DO Work Phone: [facility] Comment on above: Screening for diabet es mellitus; Screening for lipoid disorders Start: 04-22-2024 End: 04-23-2024 Refill Brooks Calixto DO Work Phone: [facility] Comment on above: Chronic pain syndrom e; Psychophysiological insomnia Start: 03-27-2024 End: 03-27-2024 Refill Brooks L Mcclellan DO Work Phone: [facility] 230 Comment on above: Psychophysiological insomnia Start: 03-21-2024 End: 03-23-2024 Refill Brooks L Mcclellan DO Work Phone: [facility] 230 Comment on above: Other specified hypo thyroidism (CMS/HCC) Start: 03-20-2024 End: 03-20-2024 Bamboo flowsheet Jimbo D Gundlach PT Work Phone: [facility] Start: 03-20-2024 End: 03-20-2024 Bamboo flowsheet Jimbo D Gundlach PT Work Phone: [facility] Start: 03-20-2024 End: 03-20-2024 ambulatory Jimbo D Gundlach PT Work Phone: [facility] PT Comment on above: Acute pain of right knee (Primary Dx); S/P total knee arthroplasty, right Start: 03-02-2024 End: 03-02-2024 Bamboo flowsheet Jimbo D Gundlach PT Work Phone: [facility] Start: 03-02-2024 End: 03-02-2024 Bamboo flowsheet Jimbo D Gundlach PT Work Phone: [facility] PT Start: 03-02-2024 End: 03-02-2024 ambulatory Jimbo D Gundlach PT Work Phone: [facility] PT Comment on above: Acute pain of right knee (Primary Dx); S/P total knee arthroplasty, right Knee pain, unspecifi ed chronicity, unspecified laterality (Primary Dx) Start: 02-28-2024 End: 02-28-2024 Bamboo flowsheet Jimbo D Gundlach PT Work Phone: [facility] PT Start: 02-28-2024 End: 02-28-2024 Bamboo flowsheet Jimbo D Gundlach PT Work Phone: [facility] PT Start: 02-28-2024 End: 02-28-2024 ambulatory Jimbo D Gundlach PT Work Phone: [facility] PT Comment on above: Acute pain of right knee (Primary Dx); S/P total knee arthroplasty, right Start: 02-26-2024 End: 02-26-2024 Bamboo flowsheet Jimbo D Gundlach PT Work Phone: [facility] PT Start: 02-26-2024 End: 02-26-2024 Bamboo flowsheet Jimbo D Gundlach PT Work Phone: [facility] PT Start: 02-26-2024 End: 02-26-2024 ambulatory Jimbo D Gundlach PT Work Phone: [facility] PT Comment on above: Acute pain of right knee (Primary Dx); S/P total knee arthroplasty, right Start: 02-25-2024 End: 02-25-2024 Bud Rosen PA Work Phone: [facility] 230 Comment on above: Mixed hyperlipidemia (CMS/HCC); Neuralgia and neuritis, unspecified Chronic pain syndrom e; Psychophysiological insomnia Start: 02-21-2024 End: 02-21-2024 Bamboo flowsheet Jimbo D Gundlach PT Work Phone: [facility] PT Start: 02-21-2024 End: 02-21-2024 Bamboo flowsheet Jimbo D Gundlach PT Work Phone: [facility] PT Start: 02-21-2024 End: 02-21-2024 ambulatory Jimbo D Gundlach PT Work Phone: [facility] PT Comment on above: Acute pain of right knee (Primary Dx); S/P total knee arthroplasty, right Start: 02-18-2024 End: 02-18-2024 Bamboo flowsheet Jimbo D Gundlach PT Work Phone: [facility] PT Start: 02-18-2024 End: 02-18-2024 Bamboo flowsheet Jimbo D Gundlach PT Work Phone: [facility] PT Start: 02-18-2024 End: 02-18-2024 ambulatory Jimbo Islasach PT Work Phone: [facility] PT Comment on above: Acute pain of right knee (Primary Dx); S/P total knee arthroplasty, right Start: 02-17-2024 End: 02-17-2024 Bamboo flowsheet Jimbo Phoenix Gundlach PT Work Phone: [facility] PT Start: 02-17-2024 End: 02-17-2024 Bamboo flowsheet Jimbo Phoenix Gundlach PT Work Phone: [facility] PT Start: 02-17-2024 End: 02-17-2024 ambulatory Jimbo Zapatadlach PT Work Phone: [facility] PT Comment on above: Acute pain of right knee (Primary Dx); S/P total knee arthroplasty, right Start: 02-14-2024 End: 02-14-2024 Bamboo flowsheet Jazzy Depoy SUPERVISOR [employer] Work Phone: [facility] PT Start: 02-14-2024 End: 02-14-2024 Bamboo flowsheet Jazzy Depoy SUPERVISOR [employer] Work Phone: [facility] PT Start: 02-14-2024 End: 02-14-2024 ambulatory Jazzy Depoy SUPERVISOR [employer] Work Phone: [facility] PT Comment on above: Acute pain of right knee (Primary Dx); S/P total knee arthroplasty, right Start: 02-10-2024 End: 02-10-2024 Bamboo flowsheet Jimbo Zapatadlach PT Work Phone: [facility] PT Start: 02-10-2024 End: 02-10-2024 Bamboo flowsheet Jimbo Phoenix Gundlach PT Work Phone: [facility] PT Start: 02-10-2024 End: 02-10-2024 ambulatory Jimbo Zapatadlach PT Work Phone: [facility] PT Comment on above: Acute pain of right knee (Primary Dx); S/P total knee arthroplasty, right Start: 02-07-2024 End: 02-07-2024 Bamboo flowsheet Jimbo Zapatadlach PT Work Phone: [facility] PT Start: 02-07-2024 End: 02-07-2024 Bamboo flowsheet Jimbo Phoenix Gundlach PT Work Phone: [facility] PT Start: 02-07-2024 End: 02-07-2024 ambulatory Jimbo Zapatadlach PT Work Phone: [facility] PT Comment on above: Acute pain of right knee (Primary Dx); S/P total knee arthroplasty, right Start: 02-04-2024 End: 02-04-2024 Bamboo flowsheet Jimbo D Gundlach PT Work Phone: [facility] PT Start: 02-04-2024 End: 02-04-2024 Bamboo flowsheet Jimbo Phoenix Gundlach PT Work Phone: [facility] PT Start: 02-04-2024 End: 02-04-2024 ambulatory Jimbo Islasach PT Work Phone: [facility] PT Comment on above: Acute pain of right knee (Primary Dx); S/P total knee arthroplasty, right Start: 02-03-2024 End: 02-03-2024 Bamboo flowsheet iMsa Moe MD Work Phone: [facility] Start: 02-03-2024 End: 02-03-2024 Bamboo flowsheet Misa Moe MD Work Phone: [facility] Start: 02-03-2024 End: 02-03-2024 Office outpatient visit 15 minutes Misa Moe MD Work Phone: [facility] Comment on above: Melanocytic nevus of trunk (Primary Dx); Lentigines; Seborrheic keratosis; History of nevus excision; Neoplasm of unspecified behavior of bone, soft tissue, and skin Start: 02-03-2024 End: 02-03-2024 ambulatory MISA MOE Not Available Start: 01-31-2024 End: 01-31-2024 Bamboo flowsheet Jimbo Zapatadlach PT Work Phone: [facility] PT Start: 01-31-2024 End: 01-31-2024 Bamboo flowsheet Jimbo D Gundlach PT Work Phone: [facility] PT Start: 01-31-2024 End: 01-31-2024 ambulatory Jimbo Zapatadlach PT Work Phone: [facility] PT Comment on above: Acute pain of right knee (Primary Dx); S/P total knee arthroplasty, right Start: 01-28-2024 End: 01-28-2024 Bamboo flowsheet Jimbo Phoenix Gundlach PT Work Phone: [facility] Start: 01-28-2024 End: 01-28-2024 Bamboo flowsheet Jimbo Phoenix Gundlach PT Work Phone: [facility] Start: 01-28-2024 End: 01-28-2024 ambulatory Jimbo Zapatadlach PT Work Phone: [facility] PT Comment on above: Acute pain of right knee (Primary Dx); S/P total knee arthroplasty, right Start: 01-24-2024 End: 01-24-2024 Bamboo flowsheet Jimbo D Gundlach PT Work Phone: [facility] PT Start: 01-24-2024 End: 01-24-2024 Bamboo flowsheet Jimbo D Gundlach PT Work Phone: [facility] PT Start: 01-24-2024 End: 01-24-2024 ambulatory Jimbo Zapatadlach PT Work Phone: [facility] PT Comment on above: Acute pain of right knee (Primary Dx); S/P total knee arthroplasty, right Start: 01-22-2024 End: 01-22-2024 Refill Brooks Calixto DO Work Phone: [facility] 230 Comment on above: Psychophysiological insomnia Start: 01-21-2024 End: 01-21-2024 ambulatory Jimbo D Gundlach PT Work Phone: [facility] PT Comment on above: Acute pain of right knee (Primary Dx); S/P total knee arthroplasty, right Start: 01-14-2024 End: 01-14-2024 Bamboo flowsheet Jimbo D Gundlach PT Work Phone: [facility] Start: 01-14-2024 End: 01-14-2024 Bamboo flowsheet Jimbo D Gundlach PT Work Phone: [facility] Start: 01-14-2024 End: 01-14-2024 ambulatory Jimbo D Gundlach PT Work Phone: [facility] PT Comment on above: Acute pain of right knee (Primary Dx); S/P total knee arthroplasty, right Start: 01-08-2024 End: 01-08-2024 Bamboo flowsheet Jimbo D Gundlach PT Work Phone: [facility] Start: 01-08-2024 End: 01-08-2024 Bamboo flowsheet Jimbo D Gundlach PT Work Phone: [facility] Start: 01-08-2024 End: 01-08-2024 ambulatory Jimbo D Gundlach PT Work Phone: [facility] PT Comment on above: Acute pain of right knee (Primary Dx); S/P total knee arthroplasty, right Start: 01-06-2024 End: 01-06-2024 Bamboo flowsheet Jimbo D Gundlach PT Work Phone: [facility] Start: 01-06-2024 End: 01-06-2024 Bamboo flowsheet Jimbo D Gundlach PT Work Phone: [facility] Start: 01-06-2024 End: 01-06-2024 ambulatory Jimbo D Gundlach PT Work Phone: [facility] PT Comment on above: Acute pain of right knee (Primary Dx); S/P total knee arthroplasty, right Start: 01-02-2024 End: 01-02-2024 Clinisync Result Encounter Generic External Data Provider [facility] External Department Unsolicited Start: 01-02-2024 End: 01-02-2024 Clinisync Result Encounter Generic External Data Provider [facility] External Department Unsolicited Start: 01-01-2024 End: 01-02-2024 ambulatory JORGE L HATCH Facility:[facility] Start: 12-29-2023 End: 12-30-2023 Refill Brooks L Mcclellan DO Work Phone: [facility] 230 Comment on above: Psychophysiological insomnia Start: 12-20-2023 End: 12-20-2023 Patient encounter procedure DO Brooks Mcclellan Work Phone: [facility] Work Phone: Start: 12-20-2023 End: 12-20-2023 ambulatory DO Brooks L Mcclellan Work Phone: [facility] Work Phone: Start: 12-12-2023 End: 12-12-2023 ambulatory BROOKS L CUTLER Not Available Start: 12-11-2023 End: 12-11-2023 ambulatory PACHECOCAROLINA VILLELA Facility:[facility] Start: 12-11-2023 Encounter for other preprocedural examination JORGE L HATCH [facility] Start: 12-11-2023 End: 12-11-2023 Admission to establishment [...] Start: 12-11-2023 End: 12-11-2023 Preprocedural examination done Pac Av 1 Other Phone: [facility] Work Phone: Start: 12-11-2023 End: 12-11-2023 Clinisync Result Encounter Generic External Data Provider [facility] External Department Unsolicited Start: 12-11-2023 End: 12-11-2023 Clinisync Result Encounter Generic External Data Provider [facility] External Department Unsolicited Start: 12-11-2023 End: 12-11-2023 Telephone encounter Brooks L Mcclellan DO Work Phone: [facility] Start: 12-11-2023 End: 12-11-2023 ambulatory JORGE L HATCH Facility:[facility] Start: 12-09-2023 End: 12-09-2023 Refill Brooks L Mcclellan DO Work Phone: [facility] Comment on above: Type 2 diabetes harman itus without complication, without long- term current use of insulin ([facility]) Start: 11-27-2023 End: 11-27-2023 Refill Cong LAU Work Phone: [facility] Comment on above: Psychophysiological insomnia Start: 11-18-2023 End: 11-18-2023 ambulatory RIZWANA SALAZAR Facility: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); Left carotid artery occlusion Start: 11-13-2023 End: 11-13-2023 Bamboo flowsheet Brooks L Mcclellan DO Work Phone: [facility] Start: 11-13-2023 End: 11-13-2023 Bamboo flowsheet Brooks L Mcclellan DO Work Phone: [facility] Start: 11-13-2023 End: 11-13-2023 ambulatory BROOKS L CUTLER Not Available Start: 11-13-2023 End: 11-13-2023 Patient encounter procedure Brooks L Mcclellan DO Work Phone: [facility] 230 Comment on above: Chronic pain syndrom e (Primary Dx); Bilateral primary osteoarthritis of knee; Type 2 diabetes mellitus without complication, without long-term current use of insulin ([facility]); Type 2 diabetes mellitus with diabetic cataract ([facility]); 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[facility]); Sacroiliitis, not elsewhere classified ([facility]) Start: 10-28-2023 End: 10-28-2023 Bud LAU Work Phone: [facility] 230 Comment on above: Psychophysiological insomnia Start: 10-24-2023 End: 10-24-2023 ambulatory NAVEED RA Not Available Start: 10-24-2023 End: 10-24-2023 Patient encounter procedure Naveed Ra DO Work Phone: [facility] Comment on above: Primary osteoarthrit is of both knees (Primary Dx) Start: 10-23-2023 End: 10-23-2023 Bamboo flowsheet Brooks L Mcclellan DO Work Phone: [facility] 230 Start: 10-23-2023 End: 10-23-2023 Bamboo flowsheet Brooks L Mcclellan DO Work Phone: [facility] 230 Start: 10-23-2023 End: 10-23-2023 Patient encounter procedure Brooks L Mcclellan DO Work Phone: [facility] 230 Comment on above: C7 radiculopathy (Pr imary Dx); Somatic dysfunction of lumbar region; Somatic dysfunction of pelvis region; Somatic dysfunction of cervical region; Somatic dysfunction of thoracic region Start: 10-23-2023 End: 10-23-2023 ambulatory BROOKS L CUTLER Not Available Start: 10-22-2023 End: 10-22-2023 Bamboo flowsheet Tracey Valenzuela DO Work Phone: [facility] Start: 10-22-2023 End: 10-22-2023 Bamboo flowsheet Tracey Valenzuela DO Work Phone: [facility] Start: 10-22-2023 End: 10-22-2023 Office outpatient new 30 minutes Tracey Valenzuela DO Work Phone: [facility] Comment on above: Right knee pain, uns pecified chronicity (Primary Dx); Primary osteoarthritis of right knee; Primary osteoarthritis of left knee Start: 10-22-2023 End: 10-22-2023 ambulatory TRACEY VALENZUELA Not Available Start: 09-25-2023 End: 09-25-2023 ambulatory JACK BARBOSA [facility] Start: 07-23-2023 End: 07-23-2023 ambulatory BROOKS CALIXTO Not Available Start: 07-18-2023 End: 07-18-2023 ambulatory [facility] Start: 07-18-2023 End: 07-18-2023 ambulatory [facility] Start: 07-12-2023 End: 07-12-2023 ambulatory CONG ROSEN Not Available Start: 05-15-2023 End: 05-15-2023 ambulatory CONG ROSEN Not Available Start: 05-06-2023 End: 05-06-2023 ambulatory MISA Carlos TARA Not Available Start: 03-31-2023 Refill Cong Rosen P A Work Phone: [facility] FM 230 Comment on above: Neuralgia and neurit is, unspecified Start: 10-19-2022 Office outpatient vi sit 15 minutes Dory Wells Work Phone: -[facility] Work Phone: Start: 10-19-2022 Patient encounter procedure Monroe Wells Work Phone: [facility]-Nlyqpszrok-Jufccd ke [facility] Work Phone: Start: 10-19-2022 ambulatory Jack Barbosa MD Faci lity:[id number] Start: 05-22-2022 End: 05-22-2022 ambulatory Iza King Other [email or web address] Other Start: 05-22-2022 Telephone encounter Iza Blades [facility] Neurosurgery Start: 05-17-2022 End: 05-17-2022 ambulatory Jatin Shana Other [employer] Other Start: 05-17-2022 Telephone encounter Jatin Shana [facility] [place] Start: 05-14-2022 End: 05-14-2022 ambulatory Jatin Shana Other [employer] Other Start: 05-14-2022 Office outpatient vi sit 25 minutes Jatin Shana [facility] Start: 05-09-2022 End: 05-09-2022 ambulatory Iza Blades Other [employer] Other Start: 05-09-2022 Office outpatient ne w 45 minutes Iza Blades [facility] Neurosurgery Start: 05-01-2022 (PROC) PROCEDURE Jatincarlos Saldana [facility] [place] Start: 05-01-2022 End: 05-01-2022 ambulatory Jatin Shana Other [employer] Other Start: 04-24-2022 End: 04-24-2022 ambulatory Jatin Shana Other [employer] Other Start: 04-24-2022 Office outpatient vi sit 25 minutes Jatin Shana [facility] Start: 04-03-2022 (PROC) PROCEDURE Jatincarlos Saldana [facility] Start: 04-03-2022 End: 04-03-2022 ambulatory Jatin Shana Other [employer] Other Start: 03-26-2022 End: 03-26-2022 ambulatory Jatin Shana Other [employer] Other Start: 03-26-2022 Office outpatient vi sit 25 minutes Jatin Shana [facility] Start: 03-13-2022 (PROC) PROCEDURE Jatin Shana [facility] Start: 03-13-2022 End: 03-13-2022 ambulatory Jatin Saldana Other [employer] Other Start: 03-07-2022 End: 03-07-2022 ambulatory Jatin Saldana Other [employer] Other Start: 03-07-2022 FQHC visit new patient Jatin Saldana [facility] Start: 07-28-2021 Office outpatient vi sit 15 minutes Dory Grande Daniellechristie Work Phone: [facility] Work Phone: Start: 07-28-2021 Patient encounter procedure Je larisa Grande Daniellechristie Work Phone: [facility]-Nkivdwmipv-Clbxmi ke 320 Work Phone: Start: 02-01-2021 Chart Update Dory Wells Work Phone: [facility] [facility] Work Phone: Start: 07-19-2020 Rx Renewal Dory Wells Work Phone: [facility] Work Phone: Start: 05-21-2018 Patient encounter procedure Ashley Salazar Facility:[place] Start: 12-11-2017 Patient encounter procedure Ashley Salazar Facility:[place] Start: 05-29-2017 Patient encounter procedure Ashley Salazar Facility:[place] Patient encounter status Dory Wells Work Phone: [facility] Work Phone: Procedures Date Procedure Procedure Detail Performing Clinician Start: 04-30-2024 Lipid panel Bola Akhtar DO Work Phone: Start: 02-03-2024 End: 02-03-2024 SKIN / NAIL BIOPSY Misa Moe MD Work Phone: Start: 01-02-2024 [facility] BAS METAB 2000 PNL SERPL Generic External Data Provider Start: 01-02-2024 [facility] CBC PNL BLD AUTO Ge neric External Data Provider Start: 12-12-2023 Mammography Brooks Donaldson tler DO Work Phone: Start: 12-11-2023 [facility] CONFIRM BLOOD TYPE Generic External Data Provider Start: 12-11-2023 Antibody screen JORGE L HATCH Comment on above: Order Comment: Speci men Type: BLOOD SPECIMEN Ordering Facility: [facility] Address: [address] [place] [address] Performed By: #### T [id number] #### [facility] CLIA [id number] [address] [place] [address] [place] Start: 10-24-2023 Arthrocentesis aspir &/inj major jt/bursa w/o us Montana Hastings DO Work Phone: Start: 10-22-2023 Arthrocentesis aspir &/inj major jt/bursa w/o us Tracey Valenzuela DO Work Phone: Start: 10-22-2023 Radiologic examinati on knee 1/2 views Tracey Valenzuela DO Work Phone: Start: 09-17-2022 Mammography Cong LAU Work Phone: [...] RSV Vaccine (1 - 1-dose 75+ series) [facility] Start: 12-10-2026 Diabetes Screening Diabetes Screening [facility] Start: 07-22-2026 Diabetes Screening Diabetes Screening [facility] Start: 02-18-2025 Glaucoma screening Diabetes: Retinopathy Screening [facility] Start: 02-02-2025 End: 02-02-2025 Patient encounter procedure 02/02/2025 8:45 AM EST Office Visit [facility] [address] [place] [id number] Misa Moe MD [address] [place] [address] [facility] Start: 12-11-2024 Screening for malignant neoplasm of breast Mammogram [facility] Start: 09-13-2024 Screening for malignant neoplasm of colon [facility] Start: 07-22-2024 Urine screening for protein Diabetes: Urine Protein Screening [facility] Start: 05-14-2024 Urine screening for protein Diabetes: Urine Protein Screening [facility] Start: 03-23-2024 End: 03-23-2025 Thyrotropin [Units/volume] in Serum or Plasma Tsh+free t4 Lab Routine Other specified hypothyroidism (CMS/HCC) Expected: 03/23/2024 (Approximate), Expires: 03/23/2025 [facility] Work Phone: Comment on above: Expected: 03/23/2024 (Approximate), Expi res: 03/23/2025 Start: 03-20-2024 End: 03-20-2024 ambulatory 03/20/2024 8:30 AM EST Treatment [facility] PT [address] [place] [phone] Jimbo Rodriguez, PT [address] [place] [address] Arrived [facility] PT Comment on above: Arrived Start: 03-12-2024 Hemoglobin A1c measurement Diabetes: Hemoglobin A1C [facility] Start: 03-06-2024 End: 03-06-2024 ambulatory 03/06/2024 10:30 AM EST Treatment [facility] [address] [place] [address] Jimbo Rodriguez, PT [address] [place] [address] [facility] Start: 03-02-2024 End: 03-02-2024 ambulatory 03/02/2024 10:00 AM EST Treatment [facility] [address] [place] [phone] Jimbo Rodriguez, PT [address] [place] [address] [facility] Start: 02-28-2024 End: 02-28-2024 [...] [address] [place] [address] Jazzy James, [employer] [address] [place] [address] Arrived [facility] Comment on above: Arrived Start: 02-11-2024 End: 02-11-2024 ambulatory 02/11/2024 1:00 PM EST Treatment [facility] [address] [place] [address] Denia Cruz [employer] [facility] Start: 02-10-2024 End: 02-10-2024 [...] [address] [place] [address] Jimbo Rodriguez, PT [address] [place] [address] [facility] Start: 01-24-2024 End: 01-24-2024 ambulatory [facility] Comment on above: Arrived Start: 01-21-2024 End: 01-21-2024 ambulatory 01/21/2024 11:00 AM EST Treatment [facility] [address] [place] [address] Jimbo Rodriguez, PT [address] [place] [address] [facility] Start: 01-14-2024 End: 01-14-2024 ambulatory 01/14/2024 11:00 AM EST Treatment [facility] [address] [place] [address] Jimbo Rodriguez, PT [address] [place] [address] [facility] Start: 01-08-2024 End: 01-08-2024 ambulatory [facility] Comment on above: Arrived Start: 01-01-2024 End: 01-01-2024 Admission to same day surgery center 01/01/2024 12:58 PM EST - 01/01/2024 3:42 PM EST Surgery [facility] Surgery [address] [place] [address] [place] [address] [place] [address] ARTHROPLASTY REPLACE JOINT TOTAL KNEE JOÃO/EX STAY [facility] Surgery Comment on above: ARTHROPLASTY REPLACE JOINT TOTAL KNEE JOÃO/EX STAY Start: 01-01-2024 End: 01-01-2024 Arthrp kne condyle&platu medial&lat compartments ARTHROPLASTY REPLACE JOINT TOTAL KNEE Unilateral primary osteoarthritis, right knee 01/01/2024 12:58 PM EST AV OR Start: 01-01-2024 Subsequent hospital visit by physician 01/01/2024 12:58 PM EST Hospital Encounter [facility] Surgery [address] [place] [address] [place] [address] [place] [address] Unilateral primary osteoarthritis, right knee [M17.11] [facility] Surgery Comment on above: Unilateral primary osteoarthritis, right knee [M17.11] Start: 12-12-2023 End: 12-12-2023 Professional / ancillary services management 12/12/2023 12:30 PM EDT Ancillary Procedure [facility] [address] [place] [phone] [facility] Start: 12-11-2023 End: 03-11-2024 Hemoglobin A1c in Blood [facility] Work Phone: Comment on above: Expected: 12/11/2023, Expires: Start: 10-29-2023 End: 10-29-2023 Patient encounter procedure 10/29/2023 9:15 AM EDT Office Visit [facility] [address] [place] [address] Tracey Valenzuela DO [address] [place] [address] [facility] Start: 10-24-2023 End: 10-24-2023 Patient encounter procedure 10/24/2023 7:45 AM EDT Office Visit [facility] [address] [place] [address] Montana Hastings, DO [address] [facility] [place] [address] [facility] Start: 10-23-2023 Hemoglobin A1c measurement Diabetes: Hemoglobin A1C [facility] Start: 10-23-2023 End: 10-23-2023 Patient encounter procedure [facility] FM 230 Comment on above: Arrived Start: 10-22-2023 End: 10-22-2023 Patient encounter procedure 10/22/2023 9:30 AM EDT Office Visit [facility] [address] [place] [address] Tracey Valenzuela DO [address] [place] [address] Arrived [facility] Comment on above: Arrived Start: 10-20-2023 Covid-19 Vaccine ( season) Covid-19 Vaccine ( season) [facility] Start: 10-20-2023 Influenza vaccination Influenza Vaccine (#1) [facility] Start: 09-18-2023 Screening for malignant neoplasm of breast [facility] Start: 04-19-2023 Hemoglobin A1c measurement Diabetes: Hemoglobin A1C [facility] Start: 04-17-2023 End: 04-17-2023 Patient encounter procedure 04/17/2023 8:30 AM EST Office Visit [facility] [address] [place] [address] Misa Moe MD [address] [place] [address] [facility] Start: 12-29-2022 Glaucoma screening Diabetes: Retinopathy Screening [facility] Start: 09-07-2022 FUV, Provider: Jack Barbosa, Status: Pen, Time: 11:45 AM FUV, Provider: Jack Barbosa, Status: Pen, Time: 11:45 AM [facility] Work Phone: Start: 09-07-2022 CAROTID, Provider: [facility], Status: Pen, Time: 10:00 AM CAROTID, Provider: [facility], Status: Pen, Time: 10:00 AM [facility] Work Phone: Start: 08-31-2022 Urine screening for protein Diabetes: Urine Protein Screening [facility] Start: 08-03-2022 FUV, Provider: Jack Barbosa, Status: Pen, Time: 10:00 AM FUV, Provider: Jack Barbosa, Status: Pen, Time: 10:00 AM [facility]Lorpt[facility]una-Zhbmku ke [address] Work Phone: Start: 08-03-2022 CAROTID, Provider: [facility], Status: Pen, Time: 9:00 AM CAROTID, Provider: [facility], Status: Pen, Time: 9:00 AM AE-Ykoobevhpz-Ztvolx ke [address] Work Phone: Start: 06-21-2021 FUV, Provider: Rizwana Salazar, Status: Pen, Time: 2:00 PM FUV, Provider: Rizwana Salazar, Status: Pen, Time: 2:00 PM [facility] Work Phone: Start: 06-21-2021 CAROTID, Provider: [facility], Status: Pen, Time: 1:00 PM CAROTID, Provider: [facility], Status: Pen, Time: 1:00 PM [facility] Work Phone: Start: 2005 Lipid panel Lipid Screening [facility] Start: 2005 Screening for malignant neoplasm of colon [facility] Start: 1990 Screening for malignant neoplasm of cervix [facility] Start: 1981 Screening for malignant neoplasm of cervix [facility] Start: 05-26-1979 Urine microalbumin profile DTaP,Tdap,Td Vaccine (1 - Tdap) [facility] Start: 1978 Annual PCP Team Chronic Disease Visit Annual PCP Team Chronic Disease Visit [facility] Start: 1978 Anxiety Screening Anxiety Screening [facility] Start: 1978 BP Controlled (<130/80) BP Controlled (<130/80) [facility] Start: 1978 Depression Screening Depression Screening [facility] Start: 1978 Hepatitis C screening Hepatitis C Screening [facility] Start: 1978 HIV screening HIV Screening [facility] Start: 1960 Screening for malignant neoplasm of colon [facility] Dermatopathology exam Dermatopat hology exam Pathology and Cytology Timed Neoplasm of unspecified behavior of bone, soft tissue, and skin Release Upon Ordering for 1 Occurrences starting 02/03/2024 [facility] Work Phone: Comment on above: Release Upon Ordering for 1 Occurrences starting 02/03/2024 End: 11-17-2024 US Carotid arteries - bilateral US CAROTID [facility] V[facility] Lab Routine Stenosis of right carotid artery Left carotid artery occlusion 1 Occurrences starting 11/18/2023 until 11/17/2024 [facility] Work Phone: Comment on above: 1 Occurrences starting 11/18/2023 until 11/17/2024 Immunizations Immunization Date Immunization Notes Care Provider Corina sauer 11-29-2022 Influenza, injectabl e, Madin Ghent Canine Kidney, preservative free, quadrivalent Cong Rosen PA Work Phone: [facility] 11-29-2022 influenza virus vaccine, unspecified formulation Rizwana Salazar MD Work Phone: [facility] 11-30-2021 Influenza, injectabl e, Madin Renu Canine Kidney, preservative free, quadrivalent Cong Rosen PA Work Phone: [facility] 11-21-2020 Influenza, injectabl e, Madin Renu Canine Kidney, preservative free, quadrivalent Cong Rosen PA Work Phone: [facility] 12-27-2019 zoster vaccine recombinant Cong Rosen PA Work Phone: [facility] 11-02-2019 Influenza, injectabl e, Madin Renu Canine Kidney, preservative free, quadrivalent Cong Rosen PA Work Phone: [facility] 10-24-2019 zoster vaccine recombinant Cong Rosen PA Work Phone: [facility] 10-23-2019 zoster vaccine recombinant Cong Rosen PA Work Phone: [facility] 11-26-2018 Influenza, injectabl e, Madin Ghent Canine Kidney, quadrivalent with preservative Cong Rosen PA Work Phone: [facility] 11-26-2018 influenza, injectabl e, madin renu canine kidney, preservative free Cong Rosen PA Work Phone: [facility] 12-04-2017 influenza, injectabl e, madin renu canine kidney, preservative free Cong Rosen PA Work Phone: [facility] 12-13-2016 seasonal influenza, intradermal, preservative free Cong Rosen PA Work Phone: [facility] 12-27-2015 influenza, injectabl e, quadrivalent, preservative free Cong Rosen PA Work Phone: [facility] 12-27-2015 seasonal influenza, intradermal, preservative free Cong Rosen PA Work Phone: [facility] 12-26-2015 seasonal influenza, intradermal, preservative free Cong Rosen PA Work Phone: [facility] Payers Date Payer Category Payer [facility] er [id number] 2024 Unknown [id number] 2023 Self-pay [id number] 2022 Private Health Insurance [id number] 2022 Unknown 2022 Blue Cross Blue Shield [id number] [id number] 2014 Unknown [id number] 1960 Unknown [id number] 2.16.840.1.484089.3.579.2 .356 1960 Unknown [id number] 2.16.840.1.829209.3.579.2 .1243 1960 Unknown [id number] 2.16.840.1.798908.3.579.2 .1259 1960 Unknown [id number] 2.16.840.1.125544.3.579.2 .1259 1960 Unknown [id number] 2.16.840.1.661177.3.579.2 .1259 1960 Unknown [id number] 2.16.840.1.025134.3.579.2 .1259 1960 Unknown [id number] 2.16.840.1.081129.3.579.2 .1259 1960 Unknown [id number] 2.16.840.1.782355.3.579.2 .1259 1960 Unknown [id number] 2.16.840.1.553314.3.579.2 .1259 1960 Unknown [id number] 2.16.840.1.000209.3.579.2 .1259 1960 Unknown [id number] 2.16.840.1.154755.3.579.2 .1258 1960 Unknown [id number] 2.16.840.1.866601.3.579.2 .1258 1960 Unknown [id number] 2.16.840.1.450186.3.579.2 .1258 1960 Unknown [id number] 2.16.840.1.627006.3.579.2 .1258 1960 Unknown [id number] 2.16.840.1.554516.3.579.2 .1258 1960 Unknown [id number] 2.16.840.1.519077.3.579.2 .1258 1960 Unknown [id number] 2.16.840.1.690929.3.579.2 .1258 1960 Unknown [id number] 2.16840.1.845198.3.579.2 .1258 1960 Unknown [id number] 2.16.840.1.669744.3.579.2 .1258 1960 Unknown [id number] 2.16.840.1.087300.3.579.2 .1258 1960 Unknown [id number] 2.16.840.1.662729.3.579.2 .1258 1960 Unknown [id number] 2.16840.1.085643.3.579.2 .1258 1960 Unknown [id number] 2.16.840.1.988308.3.579.2 .1258 1960 Unknown [id number] 2.16.840.1.664308.3.579.2 .1258 1960 Unknown [id number] 2.16.840.1.065861.3.579.2 .1258 1960 Unknown [id number] 2.16.840.1.881410.3.579.2 .1258 1960 Unknown [id number] 2.16.840.1.579118.3.579.2 .1258 1960 Unknown [id number] 2.16.840.1.345775.3.579.2 .1258 1960 Unknown [id number] 2.16.840.1.927149.3.579.2 .1258 1960 Unknown [id number] 2.16.840.1.990551.3.579.2 .1258 1960 Unknown [id number] 2.16.840.1.744244.3.579.2 .1258 1960 Unknown [id number] 2.16.840.1.372717.3.579.2 .1258 1960 Unknown [id number] 2.16.840.1.571529.3.579.2 .1258 1960 Unknown [id number] 2.16.840.1.321609.3.579.2 .1258 1960 Unknown [id number] 2.16.840.1.570848.3.579.2 .1259 Unknown [id number] 2.16.840.1.163111.3.579.2 .243 Unknown [id number] 2.16.840.1.891983.3.579.2 .243 Unknown [id number] 2.16.840.1.162025.3.579.2 .243 Unknown [id number] 2.16.840.1.567581.3.579.2 .531 Social History Date Type Detail Facility Start: 09-26-2022 End: 03-05-2023 -[facility] Work Phone: Start: 09-26-2022 End: 02-03-2024 Sex Assigned At [email or web address] Other Start: 09-26-2022 End: 11-18-2023 Tobacco smoking status NHIS Never smoked tobacco [facility] Start: 09-26-2022 End: 11-18-2023 Tobacco use and exposure Smokeless tobacco non-user [facility] Start: 03-05-2023 End: 02-03-2024 Alcohol intake Current drinker of alcohol (finding) [facility] Within the last year , have you been afraid of your partner or ex-partner? No [facility] How often do you att end shinto or mosque services? Patient refused [facility] Are you [...] got money to buy more. Never true [facility] Start: 1960 Sex Assigned At Female [facility] Start: 09-11-2022 Gender identity Identifies as female gender (finding) [facility] Start: 09-11-2022 Sexual orientation Heterosexual (finding) [facility] Start: 1960 Sex assigned at Not on file [facility] Start: 12-11-2023 Alcoholic beverage intake Ex-drinker (finding) [facility] Start: 12-11-2023 Alcohol Comment socialy [facility] Goals Date Patient Goal Desired Activity /State Personal health goal Clinical Notes 07-28-2020 to 04-30-2024 Sonia Vera RN - 04/30/2024 9:30 AM EDTTelephone Encounter - Brooks Calixto, DO - 03/23/2024 12:35 PM ESTTelephone Encounter - Brooks Calixto, DO - 03/23/2024 12:35 PM ESTPatient Instructions Note Date & Type Note Facility 04-30-2024 History of Present illness Narrative 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 documented in this encounter [facility] 03-23-2024 Telephone encounter Note Refilled this, but it is time to recheck her thyroid labs again at her convenience, order [facility] to [facility] 03-23-2024 Miscellaneous Notes Refilled this, but it is time to recheck her thyroid labs again at her convenience, order sent to [facility] documented in this encounter [facility] 03-20-2024 History of Present illness Narrative Images [...] discuss flexion stiffness. documented in this encounter [facility] 03-02-2024 History of Present illness Narrative Images [...] PT per POC. documented in this encounter [facility] 02-28-2024 History of Present illness Narrative Images [...] PT per POC. documented in this encounter [facility] 02-26-2024 History of Present illness Narrative Images [...] PT per POC. documented in this encounter [facility] 02-21-2024 History of Present illness Narrative Images [...] PT per POC. documented in this encounter [facility] 02-18-2024 History of Present illness Narrative Images [...] PT per POC. documented in this encounter [facility] 02-17-2024 History of Present illness Narrative Images [...] PT per POC. documented in this encounter [facility] 02-10-2024 History of Present illness Narrative Images [...] PT per POC. documented in this encounter [facility] 02-07-2024 History of Present illness Narrative Images [...] PT per POC. documented in this encounter [facility] 02-04-2024 History of Present illness Narrative Images [...] PT per POC. documented in this encounter [facility] 02-03-2024 History of Present illness Narrative Images [...] soft tissue, and skin (2) mid chest [place] papule Lesion biopsy Type of biopsy: tangential [...] year skin check documented in this encounter [facility] 01-31-2024 History of Present illness Narrative Images [...] PT per POC. documented in this encounter [facility] 01-28-2024 History of Present illness Narrative Images [...] PT per POC. documented in this encounter [facility] 01-24-2024 History of Present illness Narrative Physical [...] PT per POC. documented in this encounter [facility] 01-21-2024 History of Present illness Narrative Images [...] PT per POC. documented in this encounter [facility] 01-14-2024 History of Present illness Narrative Images [...] PT per POC. documented in this encounter [facility] 01-08-2024 History of Present illness Narrative Images [...] PT per POC. documented in this encounter [facility] 01-06-2024 History of Present illness Narrative Physical [...] sign below. Date: documented in this encounter [facility] 01-02-2024 Note HNO ID: [id number] Author: EMMY MONTILLA RN Service: Care Management Author Type: Registered Nurse Type: Care Mgt Initial Assessment Filed: 01/02/2024 09:51 Note Text: CARE MANAGEMENT: ASSESSMENT AND DISCHARGE PLAN SERVICE DATE: January 02, 2024 SERVICE TIME: 9:47 AM PCP: Brooks Calixto DO Primary Contact: Extended Emergency Contact Information Primary Emergency Contact: elvis givens Address: [address] [place] [address] Relation: Spouse Admission Status: Extended Recovery Insurance Provider: RUIDOSO DOWNS [employer] [facility] Discharge Planning requested by: Per Department Practice Potential Transition Plans Home;Outpatient Therapy Advance Directives Current Advance Directive: Health Care Power of Manufacturing Engineer Paint In Chart: No Current Living Arrangements and [...] wellness, Increase strength, Better mobility, Heal wounds Arjay of Choice Explained: Arjay of Choice Given: No Reason Not Given: No placements necessary Are you interested in bedside delivery of your medications? Yes Discharge Planning Participant(s): Patient Patient/Family Comments: n/a Caregiver Assessment: Caregiver is ready, willing and able to meet the patient's needs as recommended by the inter-professional team: Yes Name of Caregiver: elvis givens (Spouse) Transport at Discharge: Transportation Arrangements: Car Destination: [address] [place], [place] [id number] Needs Prior to Discharge: Needs Prior to Discharge: OT/PT Evaluation Post-Acute Discharge Plan: Patient lives with spouse. Spouse will drive patient home. Patient has her walker. Patient will be doing outpatient therapy at [facility]. Patient's first appt is Saturday01-06-24. Clinicals faxed to [facility] at [phone]. SIGNATURE: Emmy Montilla RN PATIENT NAME: Carolynn Givens DATE: January 02, 2024 TIME: 9:47 AM CONTACT #: [facility] 01-02-2024 Note HNO ID: [id number] Author: MAHCO SALAZAR PA-C Service: Orthopaedic Surgery Author Type: Physician Automobile Service Station Manager Type: Progress Notes Filed: 01/02/2024 12:57 Note [...] Route Frequency Last Action Ordered Stop 01/02/24 09 clopidogrel 75 mg tab(s) (PLAVIX) 75 mg ORAL DAILY Ordered 01/01/24 164 -- 01/02/24 0900 aspirin, enteric coated 81 mg tab(s) 81 mg ORAL DAILY Ordered 01/01/24 164 -- 01/01/24 1700 vte current anticoag therapy ([place]) 01/01/24 170 pneumatic compression stockings ([place] 01/01/24 170 activity - mobilize patient ([place]) I spent a total of 35 minutes on the date of the service which included preparing to see the patient, adzf-cb-mryu patient care, completing clinical documentation, obtaining and/or reviewing separately obtained history, and performing a medically appropriate examination. SIGNATURE: Macho Salazar PA-C PATIENT NAME: Carolynn Givens DATE: January 02, 2024 TIME: 8:38 AM [facility] 01-01-2024 Note HNO ID: [id number] Author: QUINN SALAZAR MD Service: Anesthesiology Author Type: Anesthesiologist Type: Anesthesia Procedure Notes Filed: 01/01/2024 18:58 Note Text: ANESTHESIOLOGY PROCEDURE NOTE Peripheral Nerve Block General Information Procedure Start Time/Medication Administration: 01/01/2024 1:30 PM Procedure End time: 01/01/2024 1:32 PM Patient location during procedure: OR Timeout Performed Pre-procedure: timeout performed Consent Obtained: Yes Patient identity confirmed: arm band, care velvet steamer and patient sedated or unresponsive Reason for [...] January 01, 2024 TIME: 6:57 PM CSN: [id number] [facility] 01-01-2024 Note HNO ID: [id number] Author: PETRA HOWE APRN.SLOT MACHINE KEY PERSON Service: ? Author Type: Nurse Software Development Coordinator Type: Anesthesia Procedure Notes Filed: 01/01/2024 13:31 Note Text: ANESTHESIOLOGY PROCEDURE NOTE Spinal Block General Information Procedure Start Time/Medication Administration: 01/01/2024 1:16 PM Procedure End time: 01/01/2024 1:16 PM Patient location during procedure: OR Timeout Performed Pre-procedure: timeout performed Consent Obtained: Yes Patient identity confirmed: arm band and patient Reason for Block: primary surgical anesthetic Staffing SLOT MACHINE KEY PERSON: Petra Howe APRN.SLOT MACHINE KEY PERSON Performed by: AME Preparation Sterility Preparation: hand hygiene performed prior [...] January 01, 2024 TIME: 1:31 PM CSN: [id number] [facility] 12-11-2023 Telephone encounter Note error [facility] 12-11-2023 Miscellaneous Notes error documented in this encounter [facility] 12-11-2023 History and physical note Images [...] complete echo vijaya. As patient works at [employer] she will schedule and complete it there. [...] Covid Immunization Dates Overdue - Covid-19 Vaccine ( season) Overdue since 10/20/2023 01/06/2021 Imm Admin: [...] Cardiovascular:+carotid stenosis, htn, hld Negative for Recent NH, Angina, Arrhythmia, CAD, Chest Pain GI: No [...] KLOR-CON M10 10 mEq tablet Taking Yes Sebastian-3 Fatty Acids, FISH OIL, 360-1,200 mg cap [...] found for: HBA1C EKG 07/23/23 scanned into Epic US carotids 09/25/23 found in care everywhere [...] Specific Question: Does consulting provider have [facility] access? Answer: Yes Confirm Blood Type Standing [...] mg tablet KLOR-CON M10 10 mEq tablet Sebastian-3 Fatty Acids, FISH OIL, 360-1,200 mg cap [...] DATE: 12/11/2023 TIME: 2:51 PM PAGER/CONTACT #: [facility] 12-11-2023 History and physical note Images [...] complete echo vijaya. As patient works at [employer] she will schedule and complete it there. [...] Cardiovascular:+carotid stenosis, htn, hld Negative for Recent NH, Angina, Arrhythmia, CAD, Chest Pain GI: No [...] KLOR-CON M10 10 mEq tablet Taking Yes Sebastian-3 Fatty Acids, FISH OIL, 360-1,200 mg cap [...] found for: HBA1C EKG 07/23/23 scanned into [facility] carotids 09/25/23 found in care everywhere CONCLUSIONS: [...] mg tablet KLOR-CON M10 10 mEq tablet Sebastian-3 Fatty Acids, FISH OIL, 360-1,200 mg cap [...] PM PAGER/CONTACT #: documented in this encounter [facility] 12-11-2023 Instructions Pacheco Villela PA-C - 12/11/2023 8:07 AM EDT Images from the original note were not included. [facility] PATIENT PREOPERATIVE INSTRUCTIONS HoldenJorge Ldenisaraceli, * has scheduled you for your procedure at this surgery center: [facility]: [phone] --[id number] [place] [address]. Please enter through the entrance closest to [facility]. Please read below carefully for your personalized instructions. Complete you echocardiogram at [facility] Arrival Time for Surgery: - The Surgery [...] or other anticoagulants without consulting with your chef head or prescribing physician. - Stop Vitamin E, [...] Procedures: - YOU MUST HAVE A RESPONSIBLE KEYSEATING MACHINE SET UP OPERATOR TAKE YOU HOME. A HAIR SALON MANAGER OR TRUCK DISPATCHER CANNOT BE MADE A RESPONSIBLE KEYSEATING MACHINE SET UP OPERATOR. - We recommend that a responsible person stays with you overnight to take care of you. - You cannot stay in a hotel alone after outpatient surgery. You will not be permitted to have your surgery, if you do not have someone to take care of you. If you already have an Advance Directive, please fax a copy to [phone] or email to for it to be added to your [...] Pacheco Villela PA-C documented in this encounter [facility] 11-18-2023 Note HNO ID: [id number] Author: RIZWANA SALAZAR MD Service: ? Author Type: Physician Type: Progress Notes Filed: 11/18/2023 15:55 Note Text: [facility] [place] DEPARTMENT OF VASCULAR SURGERY OUTPATIENT VISIT DATE November 18, 2023 OUTPATIENT VISIT TYPE CONSULTATION SERVICE DATE: 11/18/2023 SERVICE TIME: 9:53 AM PRIMARY CARE PHYSICIAN: Dr Bob Calixto ([facility]) REFERRING PROVIDER: Self Consult requested for an [...] reviewed for today's visit: CAROTID BILATERAL Order: [id number] [facility] [id number] [place] [id number] Vascular Lab Report [facility] US CAROTID ARTERY DUPLEX BILATERAL Patient Name: CAROLYNN GIVENS Reading Physician: [id number] Eddie Marie MD Study Date: 09/25/2023 Ordering Provider: [id number] JACK BARBOSA MRN/PID: [id number] Fellow: Technologist: Carolynn Olvera RVT, [facility] Date of /Age: 405/25/1960 / 63 years Technologist 2: Gender: F Admission Status: Outpatient Location Performed: [facility] Diagnosis/ICD: Occlusion and stenosis of bilateral carotid arteries-I65.23 Indication: Carotid Occlusion/Stenosis w/o infarct CPT Codes: 80338 Cerebrovascular Carotid Duplex scan complete Pertinent History: [...] artery is jarrett (more content not included)... [facility] 11-18-2023 History of Present illness Narrative Images from the original note were not included. [facility] [place] DEPARTMENT OF VASCULAR SURGERY OUTPATIENT VISIT DATE November 18, 2023 OUTPATIENT VISIT TYPE CONSULTATION SERVICE DATE: 11/18/2023 SERVICE TIME: 9:53 AM PRIMARY CARE PHYSICIAN: Dr Bob Calixto ([facility]) REFERRING PROVIDER: Self Consult requested for an [...] reviewed for today's visit: CAROTID BILATERAL Order: [id number] [facility] [address] [place] [address] Vascular Lab Report [facility] US CAROTID ARTERY DUPLEX BILATERAL Patient Name: CAROLYNN Wilburn Physician: [id number] Marie MD Study Date: 09/25/2023 Ordering Provider: [id number] JACK BARBOSA MRN/PID: [id number] Fellow: Technologist: Carolynn Olvera RVT, [facility] Date of /Age: 405/25/1960 / 63 years Technologist 2: Gender: F Admission Status: Outpatient Location Performed: [facility] Diagnosis/ICD: Occlusion and stenosis of bilateral carotid arteries-I65.23 Indication: Carotid Occlusion/Stenosis w/o infarct CPT Codes: 01127 Cerebrovascular Carotid Duplex scan complete Pertinent History: [...] Proximal 140 cm/s Right ICA/CCA Ratio 2.1 [id number] Eddie Marie MD ESSION: Ms. Givens is a 63 year old female with chronic L ICA occlusion. Mild R carotid stenosis several years after R CEA. OK to proceed with knee surgery as needed. RTC one year with me with repeat carotid duplex. SIGNATURE: Rizwana Salazar MD PATIENT NAME: Carolynn Givens DATE: November 18, 2023 TIME: 9:53 AM documented in this encounter [facility] 11-13-2023 History of Present illness Narrative Images [...] Not at risk (07/18/2023) Received from [facility] PHQ-2 Patient Health Questionnaire-2 Score: 0 reports [...] glucose Obesity YUAN (obstructive sleep apnea) Stroke (CMS/HCC) 09/2015 hospitalized documented in this encounter [facility] 10-24-2023 History of Present illness Narrative Associated [...] Not at risk (07/18/2023) Received from [facility] PHQ-2 Patient Health Questionnaire-2 Score: 0 REVIEW [...] her vascular team from either or the [facility] regarding her carotid artery disease. We did [...] to Dr. Calixto. documented in this encounter [facility] 10-23-2023 History of Present illness Narrative SUBJECTIVE: [...] techniques, suboccipital release. 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 [facility] at [facility] for lumbar MEDICATION: Current Outpatient Medications [...] Anxiety Atypical nevi Carotid artery stenosis Diabetes ([facility]/HCC) Diabetes mellitus ([facility]/HCC) Disease of thyroid gland ([facility]) Hyperlipidemia ([facility]/HCC) Hypertension ([facility]/HCC) Hypothyroidism (CMS/HCC) post thyroidectomy Impaired fasting glucose Obesity YUAN (obstructive sleep apnea) Stroke ([facility]) 09/2015 hospitalized ALLERGIES: Allergies Allergen [...] right knee demonstrate medial compartment collapse with qumw-qw-cgsf and subchondral sclerosis and varus alignment bilateral [...] is going to continue to use her pmqz-mcu-ggwsqlc brace. She states she tried various nonsteroidals. [...] Valenzuela/yandy Valenzuela D.O. documented in this encounter [facility] 07-18-2023 Note SUBJECTIVE: Chief complaint: Back pain. [...] do physical therapy 1 year ago at [facility] without lasting or substantial improvement. Did see pain management provider, Dr. Colbert, at [facility] and had 3 epidural steroid injections, most recently about 18 months ago, without lasting or substantial improvement. Has not had previous back surgery. Has tried medications, including gabapentin, and Lyrica without substantial improvement. States takes Tylenol with minimal improvement. 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 Used to enjoy boating and Jet [...] acyclovir ALPRAZolam aspirin atorvastatin bisoproloL-hydrochlorothiazide clopidogrel hydroCHLOROthiazide MULTIVIT,[id number] ORAL NEURIVA PLUS BRAIN PERFORMANCE ORAL omega-3 [...] mouth 2 times daily., Disp: , Rfl: MULTIVIT,[id number] ORAL, Take by mouth., Disp: , Rfl: [...] regular and nonlabored. (more content not included)... [facility] 05-14-2022 Evaluation note Encounter Date Diagnosis Assessment Notes Apr, Sacroiliitis (ICD-10 - M46.1) Continue to wear insoles as provided by damaged freight inspector. If pain persists, we can consider proceeding [...] Aspirin for 5 days prior to procedure. [email or web address] Other 03-22-2023 Evaluation note* Encounter Date Diagnosis Assessment Notes Treatment Notes Treatment Clinical Notes Apr, Sciatica, right side (ICD-10 - M54.31) Apr, Sciatica, left side (ICD-10 - M54.32) [email or web address] Other 03-20-2023 Reason for referral (narrative)* Reason 05/09/22 @ 1:30 gurrola rgical consultation for lumbar radiculopathy of L4-5, not improving with epidural injections Diagnosis 1 Lumbar radiculopathy (M54.16) Referral Organization [facility] Referring Provider First Name Jatin Referring Provider Last Name Shana Referring Provider Specialty Pain Medici ne Referred Organization [facility] Referred Provider Iza King Referred Address [address] [place] [id number] Referred Provider Specialty Neurological Surgery Referral Priority Routine Referral Appointment Date 2022-05-09 General Notes Denise Kwan 04:47:59 PM >received today, note locked, sent P2P Jayde Lawrence 05/01/2022 11:37:06 AM >pt is scheduled 05/09/22 [email or web address] Other 03-07-2023 Evaluation note* Encounter Date Diagnosis [...] Aspirin for 5 days prior to procedure. [email or web address] Other 02-06-2023 Evaluation note* Encounter Date Diagnosis [...] Aspirin for 5 days prior to procedure. [email or web address] Other 01-18-2023 Evaluation note* Encounter Date Diagnosis [...] negative findings were considered in medical decision-making. [email or web address] Other 06-17-2022 History of Present illness [id number] female presenting for carotid followup. She was last seen by Dr. Salazar last year. Duplex reveals less than 50% stenosis on the right with unchanged velocity. She has a h/o left carotid occlusion. She is taking aspirin, plavix and atorvastatin.[facility] Work Phone: 1(298) 769-995906-11-2021 History of Present illness Mraawbqgx34nd female presenting for carotid followup. She was last seen by Dr. Salazar last year. Duplex reveals less than 50% stenosis on the right with unchanged velocity. She has a h/o left carotid occlusion. She is taking aspirin, plavix and atorvastatin.-[facility] Work Phone: 1(286) 828-139906-10-2021 History of Present illness [id number] female presenting for carotid followup. She was last seen by Dr. Salazar last year. Duplex reveals less than 50% stenosis on the right with unchanged velocity. She has a h/o left carotid occlusion. She is taking aspirin, plavix and atorvastatin.[facility] [address] Work Phone: Evaluation noteNo InformationNort [employer] Other Evaluation note* Diagnosis Neuralgia and neuritis, unspecified documented in this encounter [facility] HealthcareEvaluation note* Diagnosis Stenosis of right carotid artery- Primary Occlusion and stenosis of carotid artery without mention of cerebral infarction Left carotid artery occlusion Occlusion and stenosis of carotid artery without mention of cerebral infarction documented in this encounter [facility] note* Diagnosis Psychophysiological insomnia Persistent disorder of initiating or maintaining sleep documented in this encounter [facility] HealthcareEvaluation note* Diagnosis Type 2 diabetes mellitus without complication, without long-term current use of insulin ([facility]) documented in this encounter [facility] HealthcareEvaluation note* Diagnosis Pre-op exam- Primary Preoperative examination, unspecified History of CVA (cerebrovascular accident) Transient ischemic attack (TIA), and cerebral infarction without residual deficits Bilateral carotid artery stenosis Occlusion and stenosis of carotid artery without mention of cerebral infarction Primary hypertension Unspecified essential hypertension Hypothyroidism, unspecified type Obesity, Class II, BMI 35-39.9 Obesity, unspecified Prediabetes Other abnormal glucose Factor V Leiden ([facility]) Primary hypercoagulable state Murmur Undiagnosed cardiac murmurs YUAN (obstructive sleep apnea) Obstructive sleep apnea (adult) (pediatric) Unilateral primary osteoarthritis, right knee [facility]No assessment information [facility] Work Phone: Evaluation note* Diagnosis Psychophysiological insomnia Persistent disorder of initiating or maintaining sleep documented in this encounter [facility] HealthcareEvaluation note* Diagnosis Acute pain of right knee- Primary S/P total knee arthroplasty, right documented in this encounter [facility] HealthcareEvaluation note* Diagnosis Acute pain of right knee- Primary S/P total knee arthroplasty, right documented in this encounter [facility] HealthcareEvaluation note* Diagnosis Acute pain of right knee- Primary S/P total knee arthroplasty, right documented in this encounter [facility] HealthcareEvaluation note* Diagnosis Psychophysiological insomnia Persistent disorder of initiating or maintaining sleep documented in this encounter [facility] HealthcareEvaluation note* Diagnosis Acute pain of right knee- Primary S/P total knee arthroplasty, right documented in this encounter [facility] HealthcareEvaluation note* Diagnosis Acute pain of right knee- Primary S/P total knee arthroplasty, right documented in this encounter [facility] HealthcareEvaluation note* Diagnosis Acute pain of right knee- Primary S/P total knee arthroplasty, right documented in [facility] encounter [facility]* Diagnosis Melanocytic nevus of trunk- Primary Benign neoplasm of skin of trunk, except scrotum Lentigines Seborrheic keratosis History of nevus excision Neoplasm of unspecified behavior of bone, soft tissue, and skin documented in this encounter [facility]* Diagnosis Acute pain of right knee- Primary S/P total knee arthroplasty, right documented in this encounter [facility]* Diagnosis Right knee pain, unspecified [...] complication, without long-term current use of insulin ([facility]) Type 2 diabetes mellitus with diabetic cataract ([facility]) Type II or unspecified type diabetes mellitus with ophthalmic manifestations, not stated as uncontrolled 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[facility]) Sacroiliitis, not elsewhere classified ([facility]) Sacroiliitis, not elsewhere classified documented [...] encounter [facility]* Diagnosis Mixed hyperlipidemia ([facility]) Mixed hyperlipidemia Neuralgia and neuritis, unspecified documented in this encounter [facility]* Diagnosis Chronic pain syndrome Psychophysiological insomnia Persistent disorder of initiating or maintaining sleep documented in this encounter [facility]* Diagnosis Knee pain, unspecified chronicity, unspecified laterality- Primary documented in this encounter [facility]* Diagnosis Other specified hypothyroidism (CMS/HCC) documented in this encounter [facility]* Diagnosis Psychophysiological insomnia Persistent disorder of initiating or maintaining sleep documented in this encounter [facility] note* Diagnosis Chronic pain syndrome Psychophysiological insomnia Persistent disorder of initiating or maintaining sleep documented in this encounter [facility] note* Diagnosis Screening for diabetes mellitus Screening for lipoid disorders documented in this encounter [facility] Narrative - Reported* Type Description Date Medical History diabetes mallitus Medical History herpes Medical History high blood pressure Medical History obesity Medical History stroke Surgical History carotid endarterectomy Surgical History carpal tunnel release Surgical History thyroidectomy Hospitalization History see above surg. hx. [facility] [employer] Other History of Present illness [id number] female presenting for carotid followup. She denies lateralizing symptoms. She has a known leftcarotid occlusion. She continues to take aspirin, plavix and atorvastatin.[facility]tt[facility] [address] Work Phone: History of Present illness [id number] female presenting for carotid follow up. She denies lateralizing symptoms. She has a known left carotid occlusion and h/o right CEA. She continues to take aspirin, plavix and atorvastatin.-[facility] [address] Work Phone: Reason for referral (narrative)* Outpatient Procedure (Routine) - New Request Specialty Diagnoses / Procedures Referred By Contac t Referred To [facility] Diagnoses Stenosis of right carotid artery Left carotid artery occlusion Procedures US CAROTID ARTERIES MAT VAS LAB DUPLEX SCAN EXTRACRANIAL ART [place] [address] [place] [address] [facility] [address] [place] [address] Referral ID Status Reason Start Date Expiration Date Visits Requested Visits Authorized [id number] New Request Auto-Generat ed Referral 11/18/2023 11/17/2024 1 1 [facility] - Outpatient (Routine) - Authorized Specialty Diagnoses / Procedures Referred By Contac t Referred To Contact Physical Therapy Diagnoses R TKA Procedures UT PHYSICAL THERAPY EVALUATION LOW COMPLEX 20 MINS Jorge L Hatch MD [address] [place] [id number] Phone: tel: fax: Jimbo Rodriguez, PT [address] [place] [address] Phone: tel: fax: Referral ID Status Reason Start Date Expiration Date Visits Requested Visits Authorized [id number] Authorized Consult and Treat 01/03/2024 07/01/2024 20 20 [facility] Rehabilitation - Outpatient (Routine) - Authorized Specialty Diagnoses / Procedures Referred By Contac t Referred To Contact Physical Therapy Diagnoses R TKA Procedures UT PHYSICAL THERAPY EVALUATION LOW COMPLEX 20 MINS Jorge L Hatch MD [address] [place] [phone] Phone: tel: fax: Jimbo Rodriguez, PT [address] [address] [place] [address] Phone: tel: fax: Referral ID Status Reason Start Date Expiration Date Visits Requested Visits Authorized [id number] Authorized Consult and Treat 01/03/2024 02/18/2024 20 20 [facility]* Rehabilitation - Outpatient (Routine) - Authorized Specialty Diagnoses / Procedures Referred By Contac t Referred To Contact Physical Therapy Diagnoses R TKA Procedures UT THERAPEUTIC PX 1/> AREAS EACH 15 MIN EXERCISES Jorge L Hatch MD [address] [address] Phone: tel: fax: Jimbo Rodriguez, PT [address] [place] [address] Referral ID Status Reason Start Date Expiration Date V isits Requested Visits Authorized [id number] Authorized 02/20/2024 08/18/2024 99 99 [facility] N[facility]* Rehabilitation - Outpatient (Routine) - Authorized Specialty Diagnoses / Procedures Referred By Contac t Referred To Contact Physical Therapy Diagnoses R TKA Procedures UT THERAPEUTIC PX 1/> AREAS EACH 15 MIN EXERCISES Jorge L Hatch MD [address] [place] [address] Phone: tel: fax: Jimbo Rodriguez, PT [address] [place] [address] Referral ID Status Reason Start Date Expiration Date V isits Requested Visits Authorized [id number] Authorized 02/20/2024 08/18/2024 99 20 [facility] HealthcareReason for visit Narrative* Rehabilitation - Outpatient (Routine) - Authorized Specialty Diagnoses / Procedures Referred By Contac t Referred To Contact Physical Therapy Diagnoses R TKA Procedures UT THERAPEUTIC PX 1/> AREAS EACH 15 MIN EXERCISES Jorge L Hatch MD [address] [place] [address] Phone: tel: fax: Jimbo Rodriguez, PT [address] [place] [address] Referral ID Status Reason Start Date Expiration Date V isits Requested Visits Authorized [id number] Authorized 02/20/2024 02/17/2025 12 12 [facility] Summary Purpose Family History No Family History [...] Status:Active Advance Directives No Advanced Directives Records Found Advance Directive Response Recorded Date/ Time Advance [...] Inj/Asp: R knee Tracey Valenzuela, DO [address] [place] [address] Referral ID Status Reason Start Date Expiration Date V isits Requested Visits Authorized [id number] Authorized 10/22/2023 04/19/2024 1 1 Additional Source Comments INFORMATION SOURCE (unrecogn ized section and content) DATE CREATED AUTHOR 05/19/2018 [facility] DATE CREATED AUTHOR AUTHOR'S ORGANIZ ATION 07/15/2021 [facility] DATE CREATED AUTHOR AUTHOR'S ORGANIZ ATION 07/24/2021 [facility] dical Specialist DATE CREATED AUTHOR AUTHOR'S ORGANIZ ATION 10/20/2022 [facility] DATE CREATED AUTHOR AUTHOR'S ORGANIZ ATION 10/21/2022 [facility] DATE CREATED AUTHOR AUTHOR'S ORGANIZ ATION 08/12/2023 [facility] DATE CREATED AUTHOR AUTHOR'S ORGANIZ ATION 09/30/2023 [facility] DATE CREATED AUTHOR AUTHOR'S ORGANIZ ATION 11/18/2023 [facility] DATE CREATED AUTHOR AUTHOR'S ORGANIZ ATION 01/17/2024 [facility] DATE CREATED AUTHOR AUTHOR'S ORGANIZ ATION 02/27/2024 [facility] DATE CREATED AUTHOR AUTHOR'S ORGANIZ ATION 05/03/2024 [facility] dical Specialists EPIC REASON FOR VISIT (unrecogniz [...] Reason Onset Date Comments Med Refill 03/27/2024 Reason Onset Date Comments Med Refill 04/22/2024 Care Teams (unrecognized sec tion and content) Supervisory It Specialist Relationship Specialty Start Date End Date Edgar Stockton DO [address] [place] [address] PCP - General Family Medicine 11/29/22 Cong Rosen PA [address] [place] [address] Physician [employer] Manager Family Medicine 08/10/22 Supervisory It Specialist Relationship Specialty Start Date End Date Cong Rosen PA-C [address] [place] [address] Physician Automobile Service Station Manager 06/18/23 Supervisory It Specialist Relationship Specialty Start Date End Date Brooks Calixto DO [address] [place] [address] PCP - General Family Medicine 09/27/23 Cong Rosen PA [address] [place] [address] Physician [employer] Service [employer] Manager Family Medicine 08/10/22 Supervisory It Specialist Relationship Specialty Start Date End Date Brooks Calixto DO [address] [place] [address] PCP - General Family Medicine 09/27/23 Cong Rosen, PA-C [address] [place] [address] Physician Automobile Service Station Manager 06/18/23 [place] [address] [place] [address] Surgeon Orthopedics 11/19/23 Supervisory It Specialist Relationship Specialty Start Date End Date Brooks Calixto DO [address] [place] [address] PCP - General Family Medicine 09/27/23 Cong Rosen PA [address] [place] [address] Physician Automobile Service Station Manager Family Medicine 08/10/22 Supervisory It Specialist Relationship Specialty Start Date End Date Brooks Calixto DO [address] [place] [address] PCP - General Family Medicine 09/27/23 Cong Rosen PA [address] [place] [address] Physician Automobile Service [employer] Manager Family Medicine 08/10/22 Team Status: Active Member Role Status Dates Brooks Calixto DO Primary Care Provider Active Team Status: Inactive Member Role Status Dates Brooks Calixto DO Primary Care Provi louisa, Attending Provider Active Start: December 20, 2023 End: December 20, 2023 Supervisory It Specialist Relationship Specialty Start Date End Date Brooks Calixto DO [address] [place] [address] PCP - General Family Medicine 09/27/23 Cong Rosen, PA [address] [place] [address] Physician Automobile Service Station Manager Family Medicine 08/10/22 Supervisory It Specialist Relationship Specialty Start Date End Date Brooks Calixto DO [address] [place] [address] PCP - General Family Medicine 09/27/23 Cong Rosen, PA [address] [place] [address] Physician Automobile Service Station Manager Family Medicine 08/10/22 Supervisory It Specialist Relationship Specialty Start Date End Date Brooks Calixto DO [address] [place] [address] PCP - General Family Medicine 09/27/23 Cong Rosen, PA [address] [place] [address] Physician Automobile Service Station Manager Family Medicine 08/10/22 Supervisory It Specialist Relationship Specialty Start Date End Date Brooks Calixto DO [address] [place] [address] PCP - General Family Medicine 09/27/23 Cong Rosen, PA [address] [place] [address] Physician Automobile Service Station Manager Family Medicine 08/10/22 Supervisory It Specialist Relationship Specialty Start Date End Date Brooks Calixto DO [address] [place] [address] PCP - General Family Medicine 09/27/23 Cong Rosen, PA [address] [place] [address] Physician Automobile Service Station Manager Family Medicine 08/10/22 Supervisory It Specialist Relationship Specialty Start Date End Date Brooks Calixto DO [address] [place] [address] PCP - General Family Medicine 09/27/23 Cong Rosen, PA [address] [place] [address] Physician Automobile Service Station Manager Family Medicine 08/10/22 Supervisory It Specialist Relationship Specialty Start Date End Date Brooks Calixto DO [address] [place] [address] PCP - General Family Medicine 09/27/23 Cong Rosen, PA [address] [place] [address] Physician Automobile Service Station Manager Family Medicine 08/10/22 Sonia Vera, RN Registered Nurse Family Medicine 01/21/24 01/21/24 Supervisory It Specialist Relationship Specialty Start Date End Date Brooks Calixto DO [address] [place] [address] PCP - General Family Medicine 09/27/23 Cong Rosen, PA [address] [place] [address] Physician Automobile Service Station Manager Family Medicine 08/10/22 Supervisory It Specialist Relationship Specialty Start Date End Date Brooks aClixto DO [address] [place] [address] PCP - General Family Medicine 09/27/23 Cong Rosen, PA [address] [place] [address] Physician Automobile Service Station Manager Family Medicine 08/10/22 Supervisory It Specialist Relationship Specialty Start Date End Date Brooks Calixto DO [address] [place] [address] PCP - General Family Medicine 09/27/23 Cong Rosen, PA [address] [place] [address] Physician Automobile Service Station Manager Family Medicine 08/10/22 Supervisory It Specialist Relationship Specialty Start Date End Date Brooks Calixto DO [address] [place] [address] PCP - General Family Medicine 09/27/23 Cong Rosen, PA [address] [place] [address] Physician Automobile Service Station Manager Family Medicine 08/10/22 Supervisory It Specialist Relationship Specialty Start Date End Date Brooks Calixto DO [address] [place] [address] PCP - General Family Medicine 09/27/23 Cong Rosen, PA [address] [place] [address] Physician Automobile Service Station Manager Family Medicine 08/10/22 Supervisory It Specialist Relationship Specialty Start Date End Date Brooks Calixto DO [address] [place] [address] PCP - General Family Medicine 09/27/23 Cong Rosen, PA [address] [place] [address] Physician Automobile Service Station Manager Family Medicine 08/10/22 Supervisory It Specialist Relationship Specialty Start Date End Date Brooks Calixto DO [address] [place] [address] PCP - General Family Medicine 09/27/23 Cong Rosen, PA [address] [place] [address] Physician Automobile Service Station Manager Family Medicine 08/10/22 Supervisory It Specialist Relationship Specialty Start Date End Date Brooks Calixto DO [address] [place] [address] PCP - General Family Medicine 09/27/23 Cong Rosen, PA [address] [place] [address] Physician Automobile Service Station Manager Family Medicine 08/10/22 Supervisory It Specialist Relationship Specialty Start Date End Date Brooks Calixto DO [address] [place] [address] PCP - General Family Medicine 09/27/23 Cong Rosen, PA [address] [place] [address] Physician Automobile Service Station Manager Family Medicine 08/10/22 Supervisory It Specialist Relationship Specialty Start Date End Date Brooks Calixto DO [address] [place] [address] PCP - General Family Medicine 09/27/23 Cong Rosen PA [address] [place] [address] Physician Automobile Service Station Manager Family Medicine 08/10/22 Supervisory It Specialist Relationship Specialty Start Date End Date Brooks Calixto DO [address] [place] [address] PCP - General Family Medicine 09/27/23 Cong Rosen PA [address] [place] [address] Physician Automobile Service Station Manager Family Medicine 08/10/22 Supervisory It Specialist Relationship Specialty Start Date End Date Brooks Calixto DO [address] [place] [address] PCP - General Family Medicine 09/27/23 Cong Rosen PA [address] [place] [address] Physician Automobile Service Station Manager Family Medicine 08/10/22 Supervisory It Specialist Relationship Specialty Start Date End Date Brooks Calixto DO [address] [place] [address] PCP - General Family Medicine 09/27/23 Cong Rosen PA [address] [place] [address] Physician Automobile Service Station Manager Family Medicine 08/10/22 Supervisory It Specialist Relationship Specialty Start Date End Date Brooks Calixto DO [address] [place] [address] PCP - General Family Medicine 09/27/23 Cong Rosen, PA [address] [place] [address] Physician Automobile Service Station Manager Family Medicine 08/10/22 Supervisory It Specialist Relationship Specialty Start Date End Date Brooks Calixto DO [address] [place] [address] PCP - General Family Medicine 09/27/23 Cong Rosen, PA [address] [place] [address] Physician Automobile Service Station Manager Family Medicine 08/10/22 Supervisory It Specialist Relationship Specialty Start Date End Date Brooks Calixto DO [address] [place] [address] PCP - General Family Medicine 09/27/23 Cong Rosen, PA [address] [place] [address] Physician Automobile Service Station Manager Family Medicine 08/10/22 Supervisory It Specialist Relationship Specialty Start Date End Date Brooks Calixto DO [address] [place] [address] PCP - General Family Medicine 09/27/23 Cong Rosen PA [address] [place] [address] Physician Automobile Service Station Manager Family Medicine 08/10/22 Supervisory It Specialist Relationship Specialty Start Date End Date Brooks Calixto DO [address] [place] [address] PCP - General Family Medicine 09/27/23 Cong Rosen PA [address] [place] [address] Physician Automobile Service Station Manager Family Medicine 08/10/22 Source Comments (unrecognize d section and content) In the event this informatio n is protected by the Federal Confidentiality of Alcohol and Drug Abuse Patient Records regulations: The Federal rules restrict any use of the information to criminally investigate or prosecute any alcohol or drug abuse patient.[facility] the event this information is protected by the Federal Confidentiality of Alcohol and Drug Abuse Patient Records regulations: The Federal rules restrict any use of the information to criminally investigate or prosecute any alcohol or drug abuse patient.[facility] Goals (unrecognized section and content) Goals may [...] BE BASED ON THE PRIMARY CLINICAL RECORDS. [facility]. provides no warranty or guarantee of the accuracy or completeness of information in this document.
--- NOTE | 2024-05-20 09:53 | PM.CN ---
Consult Note: HPI Data of Consult Patient: known to practice within the last 3 years Requesting Physician: Selam Haines NP Primary Care Provider: Non-Staff Physician, MD Consult Narrative Reason for consult: back pain Narrative: Carolynn Ho a pleasant 63 year old female presents for evaluation of chronic back pain. longstanding hx of low back pain secondary to lumbar stenosis and lumbar spondylosis as noted on prior lumbar MRI and xray most severe L4-S1. pt has failed to benefit from > 6 weeks of PT, >6 weeks of provider guided HEP, heat, ice, tylenol, and cannot take NSAIDs on plavix. recently bilateral L5-S1 therapeutic facet injection with significant relief while anesthetized but no ongoing relief from steroidal agent. pt is interested in RFAs for chronic low back pain. pain today 7/10 increasing with standing, walking, sitting, activity, and weather changes. preop pain up to 10/10 post op pain 1-2/10. cc:: CC: Selam Haines NP Review of Systems ROS Status of ROS 10 or more systems reviewed and unremarkable except as noted in history and below Musculoskeletal Reports: back pain; Denies: extremity pain PFSH PFS Medical History (Updated 05/20/24 @ 09:57 by Selam Haines NP) Factor 5 Leiden mutation, heterozygous ?D68.51 - Activated protein C resistance (ICD-10) Coronary artery disease ?I25.10 - Atherosclerotic heart disease of [place] coronary artery without angina pectoris (ICD-10) Stroke ?I63.9 - Cerebral infarction, unspecified (ICD-10) Hypothyroid ?E03.9 - Hypothyroidism, unspecified (ICD-10) Sleep apnea ?G47.30 - Sleep apnea, unspecified (ICD-10) HTN (hypertension) ?I10 - Essential (primary) hypertension (ICD-10) Surgical History History of cardiac cath ?Z98.890 - Other specified postprocedural states (ICD-10) History of carpal tunnel release ?Z98.890 - Other specified postprocedural states (ICD-10) Meds Home Medications and Allergies Home Medications ?Medication ?Instructions ?Recorded ?Confirmed ?Type Saccharomyces boulardii 250 mg 250 mg PO DAILY 08/06/23 05/04/24 History capsule (Digest Probiotic (S.boulardii)) acyclovir 400 mg tablet 400 mg PO DAILY 08/06/23 05/04/24 History alprazolam 0.5 mg tablet 0.5 mg PO DAILY 08/06/23 05/04/24 History aspirin 81 mg capsule 81 mg PO DAILY 08/06/23 05/04/24 History atorvastatin 80 mg tablet 80 mg PO DAILY 08/06/23 05/04/24 History bisoprolol 2.5 1 tab PO DAILY 08/06/23 05/04/24 History mg-hydrochlorothiazide 6.25 mg tablet clopidogrel 75 mg tablet 75 mg PO DAILY 08/06/23 05/04/24 History duloxetine 30 mg capsule,delayed 30 mg PO DAILY 08/06/23 05/04/24 History release (Cymbalta) hydrochlorothiazide 25 mg tablet 25 mg PO BID 08/06/23 05/04/24 History levothyroxine 125 mcg tablet 125 mcg PO DAILY 08/06/23 05/04/24 History (Euthyrox) baclofen 10 mg tablet 10 mg PO TID PRN spasms 05/04/24 05/04/24 History Allergies Allergy/AdvReac Type Severity Reaction Status Date / Time Penicillins Allergy Hives Verified 05/04/24 10:08 Sulfa (Sulfonamide Allergy Hives Verified 05/04/24 10:08 Antibiotics) Exam Constitutional Documenting provider has reviewed patient's vital signs: yes Common normals: no apparent distress, oriented x3, healthy appearing, alert and well nourished General appearance: cooperative [facility] Common normals: normocephalic, hearing grossly normal bilaterally and moist oral mucous membranes Head and scalp: normocephalic Eye Common normals: PERRL Pupil: PERRL Neck & C-Spine Common normals: full ROM General: normal visual inspection Chest Common normals: inspection of chest normal Respiratory Common normals: normal respiratory effort, no retractions and no use of accessory muscles Back & Pelvis Lumbar spine/lower back: ROM limited, pain with ROM and lumbar spinal tenderness Other: positive facet loading L4,5 L5,S1 sensation intact BLE strength 5/5 in BLE Neuro Common normals: oriented x3, CN's II-XII intact bilaterally, moves all extremities, no focal motor deficits, no sensory deficits noted and deep tendon reflexes 2+ bilaterally Sensorium/orientation: alert Motor exam: strength 5/5 throughout and no movement abnormalities noted Psych Common normals: mental status grossly normal, thought process normal, cooperative, affect normal, speech normal and activity/motor behavior normal Speech: normal speech Thought process: normal thought process Results Additional Findings Additional findings: If on a controlled substance or opioids, I have checked an OARRS report on this patient and there are no aberrancies noted in the prescribing history.??If on a controlled substance or opioid a drug screen was completed and reviewed within the last year, and if there has not been a drug screen completed we ordered one today to monitor higher risk, state monitored pain medication use. As part of providing excellent, safe, comprehensive care, the following was completed at our patient's visit: 1. A medication reconciliation and review to ensure accurate knowledge of current/active medications, including asking our patients to inform us about any zufo-[id number] medications or herbal remedies/nutritional supplements/alternative remedies. 2. A review to specifically ensure our patients have had annual screening for screening for depression, screening for tobacco use, and screening for unhealthy alcohol use. For concerning screenings had a discussion with the patient, provided patient education, and recommended follow-up with primary care provider when appropriate. If patient noted with a risk of falling, they received education on strength, gait, and balance training to prevent future risk of falling. Portions of this note may have been carried over from the previous visit and updated as appropriate. Please note this office utilizes paper charting in addition to the electronic medical record. A list of current medications, vitals, and PMH is available there as the clinical staff outside of myself do not have access to [employer] charting during the clinic day operations. As part of providing quality comprehensive care the current medications, vitals, and PMH were reviewed in the paper chart. Assessment and Plan Assessment and Plan (1) Lumbar spondylosis: Assessment and Plan: The patient has had over 3 months of moderate to severe low back pain with functional impairment and inadequate response to conservative care including NSAIDS (unless there are contraindication such as concurrent blood thinners), multiple oral or topical pain medications, and home exercise program/physical therapy.? Patient has completed >6 weeks of guided home exercise program and/or formal physical therapy program without relief of their symptoms.? I have reviewed the imaging of the lumbar spine and no red flags were identified.? The Oswestry Disability Index was completed, and the patient scored a 36%.? The patient noted the following:?? moderate to severe pain impacting ADLs, sitting, standing, walking, and sleep We discussed the risks and benefits of the procedure with the patient, and we are NOT planning on using sedation as outlined in the guidelines from Medicare unless there is a documented reason that sedation would be strongly recommended.?? ?The procedure will be completed with fluoroscopic guidance.? (2) Lumbar stenosis with neurogenic claudication: Plan bilateral L4/5 L5/S1 MBB x2 working towards RFA continue current medications continue HEP as tolerated f/u after injection
== END 2024-05-20 09:20 | disposition home or self-care (01) ==
LOC: PM 09:19
PROVIDERS: Visit Provider Nurse Practitioner
DX: M47.816 Spondylosis without myelopathy or radiculopathy, lumbar region (principal); M48.062 Spinal stenosis, lumbar region with neurogenic claudication
CPT/HCPCS: G0463

== ENCOUNTER 2024-06-01 09:40 | Day surgery (SDC) | payer BC, SELFPAY ==
[2024-06-01 09:54] VITALS: BP 155/94; PULSE 75; TEMP 36.4; O2SAT 96
[2024-06-01 10:01] LABS: Glucometer 81 mg/dL (74-106)
[2024-06-01 10:33] VITALS: BP 162/74; PULSE 74; O2SAT 96
[2024-06-01 10:34] VITALS: BP 158/87; PULSE 70; O2SAT 94
[2024-06-01] MEDS: LIDOCAINE HCL 2% 400 MG/20 ML MDV INJ (10:35)
[2024-06-01] MEDS: BUPIVACAINE HCL 0.25% PF 25 MG/10 ML VIAL 8 ML INJ (10:35)
--- NOTE | 2024-06-01 10:37 | W.PM.PROCNOT ---
Date of procedure: 06/01/24 Pre-op diagnosis: Pain due to lumbar spondylosis without myelopathy Post-op diagnosis: same as pre-op Procedure: Procedure: Bilateral L4-5, L5-S1 medial branch block Medications: Bupivacaine 0.25% 6cc The patient was seen and examined in the preoperative holding area.? An informed consent was obtained and placed on the chart.? The patient was brought to the medical procedure unit and placed in the prone position.? A timeout was completed verifying correct patient, procedure site, positioning, plan, and special equipment.? Using aseptic technique, the needle was placed at left L4. Under direct fluoroscopic visualization a Quincke-tipped spinal needle was advanced to the junction of the superior articulating process with the transverse process at the designated medial branch segment.? Preceded by negative aspiration, the above-mentioned injectate was placed in 1 mL aliquots.? The procedure was repeated at left L5, S1.? The needle was removed and insertion site was covered. The same procedure, at the same levels, was completed on the right side. The patient was taken to the postprocedural recovery area and monitored for an appropriate length of time before found suitable for discharge in the company of a responsible adult. Anesthesia: Local Surgeon: Heaven Rae Pathology: none sent Condition: stable Disposition: no change
== END 2024-06-01 10:42 | disposition home or self-care (01) ==
LOC: SURGOUT 09:41
PROVIDERS: Visit Provider Anesthesiology
DX: M47.816 Spondylosis without myelopathy or radiculopathy, lumbar region (principal); M54.50 Low back pain, unspecified; E11.8 Type 2 diabetes mellitus with unspecified complications
CPT/HCPCS: 36415; 64493; 64494; 82948; J0665

== ENCOUNTER 2024-06-11 08:59 | Outpatient (OUT) | payer BC, SELFPAY ==
--- NOTE | 2024-06-11 09:36 | PM.CN ---
Consult Note: HPI Data of Consult Patient: known to practice within the last 3 years Requesting Physician: Selam Haines NP Primary Care Provider: Non-Staff Physician, MD Consult Narrative Reason for consult: back pain Narrative: Carolynn Ho a pleasant 64 year old female presents for evaluation of chronic back pain. longstanding hx of low back pain secondary to lumbar stenosis and lumbar spondylosis as noted on prior lumbar MRI and xray most severe L4-S1. pt has failed to benefit from > 6 weeks of PT, >6 weeks of provider guided HEP, heat, ice, tylenol, and cannot take NSAIDs on plavix. recently bilateral L5-S1 therapeutic facet injection with significant relief while anesthetized but no ongoing relief from steroidal agent. pt is interested in RFAs for chronic low back pain. pain today 7/10 increasing with standing, walking, sitting, activity, and weather changes. recently underwent bilateral L4-5 L5-S1 MBB #1 with >80% improvement in pain and functional ability immediately following and hours after the injection. preop pain up to 10/10 post op pain 1-2/10. significant improvement in walking, sitting, and utilizing the stairs. cc:: CC: Selam Haines NP Review of Systems ROS Status of ROS 10 or more systems reviewed and unremarkable except as noted in history and below Musculoskeletal Reports: back pain; Denies: extremity pain PFSH [facility] Medical History (Updated 05/20/24 @ 09:57 by Selam Haines NP) Factor 5 Leiden mutation, heterozygous ?D68.51 - Activated protein C resistance (ICD-10) Coronary artery disease ?I25.10 - Atherosclerotic heart disease of [place] coronary artery without angina pectoris (ICD-10) Stroke ?I63.9 - Cerebral infarction, unspecified (ICD-10) Hypothyroid ?E03.9 - Hypothyroidism, unspecified (ICD-10) Sleep apnea ?G47.30 - Sleep apnea, unspecified (ICD-10) HTN (hypertension) ?I10 - Essential (primary) hypertension (ICD-10) Surgical History History of cardiac cath ?Z98.890 - Other specified postprocedural states (ICD-10) History of carpal tunnel release ?Z98.890 - Other specified postprocedural states (ICD-10) Meds Home Medications and Allergies Home Medications ?Medication ?Instructions ?Recorded ?Confirmed ?Type Saccharomyces boulardii 250 mg 250 mg PO DAILY 08/06/23 06/01/24 History capsule (Digest Probiotic (S.boulardii)) acyclovir 400 mg tablet 400 mg PO DAILY 08/06/23 06/01/24 History alprazolam 0.5 mg tablet 0.5 mg PO DAILY 08/06/23 06/01/24 History aspirin 81 mg capsule 81 mg PO DAILY 08/06/23 06/01/24 History atorvastatin 80 mg tablet 80 mg PO DAILY 08/06/23 06/01/24 History bisoprolol 2.5 1 tab PO DAILY 08/06/23 06/01/24 History mg-hydrochlorothiazide 6.25 mg tablet clopidogrel 75 mg tablet 75 mg PO DAILY 08/06/23 06/01/24 History duloxetine 30 mg capsule,delayed 30 mg PO DAILY 08/06/23 06/01/24 History release (Cymbalta) hydrochlorothiazide 25 mg tablet 25 mg PO BID 08/06/23 06/01/24 History levothyroxine 125 mcg tablet 125 mcg PO DAILY 08/06/23 06/01/24 History (Euthyrox) baclofen 10 mg tablet 10 mg PO TID PRN spasms 05/04/24 06/01/24 History Allergies Allergy/AdvReac Type Severity Reaction Status Date / Time Penicillins Allergy Hives Verified 06/01/24 10:02 Sulfa (Sulfonamide Allergy Hives Verified 06/01/24 10:02 Antibiotics) Exam Constitutional Documenting provider has reviewed patient's vital signs: yes Common normals: no apparent distress, oriented x3, healthy appearing, alert and well nourished General appearance: cooperative [facility] Common normals: normocephalic, hearing grossly normal bilaterally and moist oral mucous membranes Head and scalp: normocephalic Eye Common normals: PERRL Pupil: PERRL Neck & C-Spine Common normals: full ROM General: normal visual inspection Chest Common normals: inspection of chest normal Respiratory Common normals: normal respiratory effort, no retractions and no use of accessory muscles Back & Pelvis Lumbar spine/lower back: ROM limited, pain with ROM and lumbar spinal tenderness Other: positive facet loading L4,5 L5,S1 sensation intact BLE strength 5/5 in BLE Neuro Common normals: oriented x3, CN's II-XII intact bilaterally, moves all extremities, no focal motor deficits, no sensory deficits noted and deep tendon reflexes 2+ bilaterally Sensorium/orientation: alert Motor exam: strength 5/5 throughout and no movement abnormalities noted Psych Common normals: mental status grossly normal, thought process normal, cooperative, affect normal, speech normal and activity/motor behavior normal Speech: normal speech Thought process: normal thought process Results Additional Findings Additional findings: If on a controlled substance or opioids, I have checked an [place]ARRS report on this patient and there are no aberrancies noted in the prescribing history.??If on a controlled substance or opioid a drug screen was completed and reviewed within the last year, and if there has not been a drug screen completed we ordered one today to monitor higher risk, state monitored pain medication use. As part of providing excellent, safe, comprehensive care, the following was completed at our patient's visit: 1. A medication reconciliation and review to ensure accurate knowledge of current/active medications, including asking our patients to inform us about any rlyw-laz-hjfavgo medications or herbal remedies/nutritional supplements/alternative remedies. 2. A review to specifically ensure our patients have had annual screening for screening for depression, screening for tobacco use, and screening for unhealthy alcohol use. For concerning screenings had a discussion with the patient, provided patient education, and recommended follow-up with primary care provider when appropriate. If patient noted with a risk of falling, they received education on strength, gait, and balance training to prevent future risk of falling. Portions of this note may have been carried over from the previous visit and updated as appropriate. Please note this office utilizes paper charting in addition to the electronic medical record. A list of current medications, vitals, and PMH is available there as the clinical staff outside of myself do not have access to [employer] charting during the clinic day operations. As part of providing quality comprehensive care the current medications, vitals, and PMH were reviewed in the paper chart. Assessment and Plan Assessment and Plan (1) Lumbar spondylosis: Assessment and Plan: The patient has had over 3 months of moderate to severe low back pain with functional impairment and inadequate response to conservative care including NSAIDS (unless there are contraindication such as concurrent blood thinners), multiple oral or topical pain medications, and home exercise program/physical therapy.? Patient has completed >6 weeks of guided home exercise program and/or formal physical therapy program without relief of their symptoms.? I have reviewed the imaging of the lumbar spine and no red flags were identified.? The Oswestry Disability Index was completed, and the patient scored a 42%.? The patient noted the following:?? moderate to severe pain impacting ADLs, sitting, standing, walking, and sleep We discussed the risks and benefits of the procedure with the patient, and we are NOT planning on using sedation as outlined in the guidelines from Medicare unless there is a documented reason that sedation would be strongly recommended.?? ?The procedure will be completed with fluoroscopic guidance.? (2) Lumbar stenosis with neurogenic claudication: Plan bilateral L4/5 L5/S1 MBB x2 working towards RFA continue current medications continue HEP as tolerated f/u after injection
== END 2024-06-11 09:00 | disposition home or self-care (01) ==
LOC: PM 09:00
PROVIDERS: Visit Provider Nurse Practitioner
DX: M47.816 Spondylosis without myelopathy or radiculopathy, lumbar region (principal); M48.062 Spinal stenosis, lumbar region with neurogenic claudication
CPT/HCPCS: G0463

== ENCOUNTER 2024-06-15 08:01 | Day surgery (SDC) | payer BC, SELFPAY ==
[2024-06-15 08:59] VITALS: BP 141/88; PULSE 75; TEMP 36.3; O2SAT 99
[2024-06-15 09:07] LABS: Glucometer 78 mg/dL (74-106)
[2024-06-15 09:22] VITALS: BP 151/76; PULSE 72; O2SAT 96
[2024-06-15] MEDS: LIDOCAINE HCL 2% 400 MG/20 ML MDV INJ (09:23)
[2024-06-15] MEDS: BUPIVACAINE HCL 0.25% PF 25 MG/10 ML VIAL 8 ML INJ (09:23)
[2024-06-15 09:24] VITALS: BP 159/70; PULSE 66; O2SAT 99
--- NOTE | 2024-06-15 09:28 | W.PM.PROCNOT ---
Date of procedure: 06/15/24 Pre-op diagnosis: Pain due to lumbar spondylosis without myelopathy Post-op diagnosis: same as pre-op Procedure: Procedure: Bilateral L4-5, L5-S1 medial branch block Medications: Bupivacaine 0.25% 6cc The patient was seen and examined in the preoperative holding area.? An informed consent was obtained and placed on the chart.? The patient was brought to the medical procedure unit and placed in the prone position.? A timeout was completed verifying correct patient, procedure site, positioning, plan, and special equipment.? Using aseptic technique, the needle was placed at left L4. Under direct fluoroscopic visualization a Quincke-tipped spinal needle was advanced to the junction of the superior articulating process with the transverse process at the designated medial branch segment.? Preceded by negative aspiration, the above-mentioned injectate was placed in 1 mL aliquots.? The procedure was repeated at left L5, S1.? The needle was removed and insertion site was covered. The same procedure, at the same levels, was completed on the right side. The patient was taken to the postprocedural recovery area and monitored for an appropriate length of time before found suitable for discharge in the company of a responsible adult. Anesthesia: Local Surgeon: Heaven Rae Pathology: none sent Condition: stable Disposition: no change
== END 2024-06-15 09:31 | disposition home or self-care (01) ==
PROVIDERS: Visit Provider Anesthesiology
DX: M47.816 Spondylosis without myelopathy or radiculopathy, lumbar region (principal); M54.50 Low back pain, unspecified
CPT/HCPCS: 36415; 64493; 64494; 82948; J0665

== ENCOUNTER 2024-06-17 07:50 | Outpatient (OUT) | payer BC, SELFPAY ==
--- NOTE | 2024-06-17 08:13 | PM.CN ---
Consult Note: HPI Data of Consult Patient: known to practice within the last 3 years Requesting Physician: Selam Haines NP Primary Care Provider: Non-Staff Physician, MD Consult Narrative Reason for consult: back pain Narrative: Carolynn Ho a pleasant 64 year old female presents for evaluation of chronic back pain. longstanding hx of low back pain secondary to lumbar stenosis and lumbar spondylosis as noted on prior lumbar MRI and xray most severe L4-S1. pt has failed to benefit from > 6 weeks of PT, >6 weeks of provider guided HEP, heat, ice, tylenol, and cannot take NSAIDs on plavix. recently bilateral L5-S1 therapeutic facet injection with significant relief while anesthetized but no ongoing relief from steroidal agent. pt is interested in RFAs for chronic low back pain. pain today 5-6/10 increasing with standing, walking, sitting, activity, and weather changes. recently underwent bilateral L4-5 L5-S1 MBB #1 and #2 with >80% improvement in pain and functional ability immediately following and hours after the injection. preop pain up to 10/10 post op pain /10. significant improvement in walking, sitting, and utilizing the stairs. pt noticing increased low back pain since her second MBB wore off. cc:: CC: Selam Haines NP Review of Systems ROS Status of ROS 10 or more systems reviewed and unremarkable except as noted in history and below Musculoskeletal Reports: back pain; Denies: extremity pain [facility] Medical History (Updated 06/17/24 @ 08:14 by Selam Haines NP) Factor 5 Leiden mutation, heterozygous ?D68.51 - Activated protein C resistance (ICD-10) Coronary artery disease ?I25.10 - Atherosclerotic heart disease of [place] coronary artery without angina pectoris (ICD-10) Stroke ?I63.9 - Cerebral infarction, unspecified (ICD-10) Hypothyroid ?E03.9 - Hypothyroidism, unspecified (ICD-10) Sleep apnea ?G47.30 - Sleep apnea, unspecified (ICD-10) HTN (hypertension) ?I10 - Essential (primary) hypertension (ICD-10) Surgical History History of cardiac cath ?Z98.890 - Other specified postprocedural states (ICD-10) History of carpal tunnel release ?Z98.890 - Other specified postprocedural states (ICD-10) Meds Home Medications and Allergies Home Medications ?Medication ?Instructions ?Recorded ?Confirmed ?Type Saccharomyces boulardii 250 mg 250 mg PO DAILY 08/06/23 06/15/24 History capsule (Digest Probiotic (S.boulardii)) acyclovir 400 mg tablet 400 mg PO DAILY 08/06/23 06/15/24 History alprazolam 0.5 mg tablet 0.5 mg PO DAILY 08/06/23 06/15/24 History aspirin 81 mg capsule 81 mg PO DAILY 08/06/23 06/15/24 History atorvastatin 80 mg tablet 80 mg PO DAILY 08/06/23 06/15/24 History bisoprolol 2.5 1 tab PO DAILY 08/06/23 06/15/24 History mg-hydrochlorothiazide 6.25 mg tablet clopidogrel 75 mg tablet 75 mg PO DAILY 08/06/23 06/15/24 History duloxetine 30 mg capsule,delayed 30 mg PO DAILY 08/06/23 06/15/24 History release (Cymbalta) hydrochlorothiazide 25 mg tablet 25 mg PO BID 08/06/23 06/15/24 History levothyroxine 125 mcg tablet 125 mcg PO DAILY 08/06/23 06/15/24 History (Euthyrox) baclofen 10 mg tablet 10 mg PO TID PRN spasms 05/04/24 06/15/24 History Allergies Allergy/AdvReac Type Severity Reaction Status Date / Time Penicillins Allergy Hives Verified 06/15/24 09:06 Sulfa (Sulfonamide Allergy Hives Verified 06/15/24 09:06 Antibiotics) Exam Constitutional Documenting provider has reviewed patient's vital signs: yes Common normals: no apparent distress, oriented x3, healthy appearing, alert and well nourished General appearance: cooperative [facility] Common normals: normocephalic, hearing grossly normal bilaterally and moist oral mucous membranes Head and scalp: normocephalic Eye Common normals: PERRL Pupil: PERRL Neck & C-Spine Common normals: full ROM General: normal visual inspection Chest Common normals: inspection of chest normal Respiratory Common normals: normal respiratory effort, no retractions and no use of accessory muscles Back & Pelvis Lumbar spine/lower back: ROM limited, pain with ROM and lumbar spinal tenderness Other: positive facet loading L4,5 L5,S1 sensation intact BLE strength 5/5 in BLE Neuro Common normals: oriented x3, CN's II-XII intact bilaterally, moves all extremities, no focal motor deficits, no sensory deficits noted and deep tendon reflexes 2+ bilaterally Sensorium/orientation: alert Motor exam: strength 5/5 throughout and no movement abnormalities noted Psych Common normals: mental status grossly normal, thought process normal, cooperative, affect normal, speech normal and activity/motor behavior normal Speech: normal speech Thought process: normal thought process Results Additional Findings Additional findings: If on a controlled substance or opioids, I have checked an [place] report on this patient and there are no aberrancies noted in the prescribing history.??If on a controlled substance or opioid a drug screen was completed and reviewed within the last year, and if there has not been a drug screen completed we ordered one today to monitor higher risk, state monitored pain medication use. As part of providing excellent, safe, comprehensive care, the following was completed at our patient's visit: 1. A medication reconciliation and review to ensure accurate knowledge of current/active medications, including asking our patients to inform us about any nuao-vek-iudhizt medications or herbal remedies/nutritional supplements/alternative remedies. 2. A review to specifically ensure our patients have had annual screening for screening for depression, screening for tobacco use, and screening for unhealthy alcohol use. For concerning screenings had a discussion with the patient, provided patient education, and recommended follow-up with primary care provider when appropriate. If patient noted with a risk of falling, they received education on strength, gait, and balance training to prevent future risk of falling. Portions of this note may have been carried over from the previous visit and updated as appropriate. Please note this office utilizes paper charting in addition to the electronic medical record. A list of current medications, vitals, and PMH is available there as the clinical staff outside of myself do not have access to [employer] charting during the clinic day operations. As part of providing quality comprehensive care the current medications, vitals, and PMH were reviewed in the paper chart. Assessment and Plan Assessment and Plan (1) Lumbar spondylosis: Assessment and Plan: The patient has had over 3 months of moderate to severe low back pain with functional impairment and inadequate response to conservative care including NSAIDS (unless there are contraindication such as concurrent blood thinners), multiple oral or topical pain medications, and home exercise program/physical therapy.? Patient has completed >6 weeks of guided home exercise program and/or formal physical therapy program without relief of their symptoms.? I have reviewed the imaging of the lumbar spine and no red flags were identified.? The Oswestry Disability Index was completed, and the patient scored a 38%.? The patient noted the following:?? moderate to severe pain impacting ADLs, sitting, standing, walking, and sleep We discussed the risks and benefits of the procedure with the patient, and we are NOT planning on using sedation as outlined in the guidelines from Medicare unless there is a documented reason that sedation would be strongly recommended.?? ?The procedure will be completed with fluoroscopic guidance.? (2) Lumbar stenosis with neurogenic claudication: (3) Acute on chronic low back pain: Plan bilateral L4/5 L5/S1 medial branch RFA with 10mg po valium prior to procedure medrol dose pack for acute on chronic low back pain continue current medications continue HEP as tolerated f/u 1 month after RFA complete
== END 2024-06-17 07:51 | disposition home or self-care (01) ==
LOC: PM 07:50
PROVIDERS: Visit Provider Nurse Practitioner
DX: M47.816 Spondylosis without myelopathy or radiculopathy, lumbar region (principal); M48.062 Spinal stenosis, lumbar region with neurogenic claudication; M54.50 Low back pain, unspecified
CPT/HCPCS: G0463

== ENCOUNTER 2024-06-29 07:04 | Day surgery (SDC) | payer BC, SELFPAY ==
--- OUTSIDE RECORDS SUMMARY | 2024-06-29 07:07 | XMS_ITS | CCD ---
Author Organization [facility] Care Team Providers Care Call Center Support Consultant Name Role Phone Rizwana Salazar Attending Unavailabl [...] [place] Referring Unavailable Cong Griffin Unavailable Sukhwinder Stockton DO Primary Care Provider OVITT, JORDI Referring Unavailable OVITT, JORDI Referring Unavailable OVITT, JORDI Referring Unavailable JORDI ROMERO Attending Unavailable JACK BARBOSA Referring Unavailable DORY WELLS Primary Care Unavailable RIZWANA SALAZAR Attending Unavail able Cong Rosen PA-C Unavailable [phone] Brooks Calixto DO Primary Care Provider Brooks Calixto DO Primary Care Provider [phone] Jorge L Hatch MD Unavailable DO Brooks Calixto Primary Care Provider DO Brooks Calixto Attending Provider JORGE L HATCH Admitting UnavailJORGE L Dimas Attending UnavailBROOKS Grullon Primary Care Unavailable PACHECO VILLELA Referring Unavailable CUTLER, BROOKS L Primary Care Unavailable HOLDENJORGE L Referring Unavailabl e CUTLER, BROOKS L Primary Care Unavailable Chuy BALES, Sonia Unavailable Unavailable [place], Brooks L Attending Unavailable [place], Brooks L Primary Care Unavailable [place], Brooks L Admitting Unavailable GUNDLACH, JIMBO Phoenix Attending Unavailable HOLDEN, JORGE L Referring Unavailable BOLA AKHTAR Attending Unavailable CONG ROSEN Referring Unavailable CUTLER, BROOKS L Attending Unavailable CUTLER, BROOKS L Attending Unavailable PETITTI, MISA Carlos Attending Unavailable CUTLER, BROOKS L Attending Unavailable CUTLER, BROOKS L Referring Unavailable NICOLAS, TRACEY Carlos Attending Unavailable NICOLAS, TRACEY Carlos Referring Unavailable CUTLER, BROOKS L Attending Unavailable CUTLER, BROOKS L Referring Unavailable POCOS, MONTA[place] Carlos Attending Unavailable POCOS, [place] Carlos Referring Unavailable CUTLER, BROOKS L Attending Unavailable CUTLER, BROOKS L Referring Unavailable CUTLER, BROOKS L Referring Unavailable GUNDLISSA, JIMBO Phoenix Attending Unavailable HOLDEN, JORGE L [...] JORGE L Referring Unavailable PETITTIMISA Attending Unavailable GUNDLISSA, JIMBO Phoenix Attending Unavailable HOLDEN, JORGE L [...] Attending Unavailable HOLDEN, JORGE L Referring Unavailable Butch KERR, Heaven Thompson Attending Unavailable Butch KERR, Heaven Thompson Attending Unavailable Allergies Allergy Classification Reported Allergen(s) Allergy Type Date of Onset Reaction(s) Facility Macrolides (antibiotic) (1 source) Clarithromycin; Translations: [Clarithromycin TABS] Drug Allergy [facility] Work Phone: Penicillins (antibiotic) (1 source) Penicillins; Translations: [Penicillins] Drug Allergy [facility] Work Phone: Sulfonamides (antibiotic) (1 source) Sulfonamides (Antibiotic); Translations: [Sulfa Drugs] Drug Allergy [facility] [employer] Work Phone: Unclassified (7 sources) Contrast Media Ready-Box MISC; Translations: [Contrast Media Ready-Box MISC] Allergy to drug (finding) [facility] [employer] Work Phone: (6 sources) Clarithromycin; Translations: [Clarithromycin TABS] Drug [facility]ergy [facility] Work Phone: (9 sources) Penicillins; Translations: [Penicillins] Allergy to drug (finding) 05-15-19 [facility] Repository (6 sources) Sulfonamides (Antibiotic); Translations: [Sulfa Drugs] Allergy to drug (finding) [facility] Work Phone: (5 sources) Penicillin Drug Allergy Unknown [employer] Other (20 sources) Substance with sulfonamide structure and antibacterial mechanism of action (substance) Drug allergy 08-11-19 Unknown, Hives [employer] Other (20 sources) Penicillins Drug Allergy 08-11-19 Unknown [facility] (1 source) Sulfur; Translations: [SULFUR] Drug Allergy 07-18-19 [facility] Repository (1 source) ALLERGIES NOT ON FILE; Translations: [ALLERGIES NOT ON FILE] Propensity to adverse reactions (disorder) [facility] Repository (2 sources) Penicillins Drug Allergy 11-18-19 Anaphylaxis [facility] (3 sources) Sulfonamides (Antibiotic); Translations: [SULFA (SULFONAMIDE ANTIBIOTICS)] Allergy to substance 05-15-19 [facility] (1 source) Penicillins Drug allergy (disorder) 05-15-19 [facility] Repository Medications Current Medications Medication Drug Class(es) Dates Sig (Normalized) Sig (Original) Acetaminophen (1 source) acetaminophen (TYLENOL ARTHRITIS ORAL) Take by mouth. Active acyclovir 400 mg oral tablet (20 sources) Herpesvirus Nucleoside Analog DNA Polymerase Inhibitor, Herpes Simplex Virus Nucleoside Analog DNA Polymerase Inhibitor, Herpes Zoster Virus Nucleoside Analog DNA Polymerase Inhibitor Start: 12-30-2023 End: 06-03-2024 take 1 tablet by mouth once daily acyclovir (Zovirax) 400 MG tablet Indications: Herpes Take 1 tablet (400 mg) by mouth Daily 90 tablet 1 06/03/2024 Active Start: 03-01-2015 take 1 tablet by kirstin th once daily acyclovir (Zovirax) 400 MG tablet Indications: Herpes TAKE 1 TABLET BY MOUTH EVERY DAY 90 tablet 1 10/28/2023 Active Zovirax Active Acyclovir Active ALPRAZolam 0.5 mg oral tablet (20 sources) Benzodiazepine Start: 2024 End: 07-26-2024 ALPRAZolam (Xanax) 0.5 MG tablet Indications: Psychophysiological insomnia Take 1 tablet (0.5 mg) by mouth as needed at bedtime for anxiety 30 tablet 06/26/2024 07/26/2024 Active Start: 09-25-2023 End: 05-23-2024 ALPRAZolam (Xanax) 0.5 MG ta blet Indications: Psychophysiological insomnia Take 1 tablet (0.5 [...] (20 sources) HMG-CoA Reductase Inhibitor Start: 04-17-2024 End: 06-03-2024 take 1 tablet by mouth at bedtime atorvastatin (Lipitor) 80 MG tablet Indications: Mixed hyperlipidemia (CMS/HCC) Take 1 tablet (80 mg) by mouth at bedtime 90 tablet 3 06/03/2024 Active Start: 02-28-2023 End: 02-25-2024 take 1 tablet by mouth at bedtime atorvastatin (Lipitor) 80 MG tablet Indications: Mixed hyperlipidemia (CMS/HCC) Take 1 tablet (80 mg) by mouth at bedtime 90 tablet 3 02/25/2024 Active Atorvastatin Mitchell cium Active baclofen 10 mg oral tablet (20 sources) gamma-Aminobutyric Acid-ergic Agonist Start: 10-01-2023 End: 04-22-2024 take 1 tablet [...] before bedtime. 270 tablet 3 04/23/2024 Active Evelio Low Dose (10 sources) Evelio Low Dose Active bisoprolol fumarate 2.5 mg / hydroCHLOROthiazide 6.25 mg oral tablet (20 sources) Thiazide Diuretic, beta-Adrenergic Nabeel Start: 04-09-2024 End: 06-03-2024 take 1 tablet by mouth once daily bisoprolol-hydr oCHLOROthiazide (Ziac) 2.5-6.25 MG tablet Indications: Benign hypertension (CMS/HCC) Take 1 tablet by mouth Daily 90 tablet 1 06/03/2024 Active Start: 10-09-2023 take 1 tablet by [...] (20 sources) P2Y12 Platelet Inhibitor Start: 11-28-2016 End: 06-03-2024 take 1 tablet by mouth once daily clopidogrel (Plavix) 75 MG tablet Indications: Occlusion and stenosis of left carotid artery Take 1 tablet (75 mg) by mouth Daily 90 tablet 3 06/03/2024 Active Coenzyme Q10 (10 sources) Coenzyme Q10 [...] (20 sources) Nonsteroidal Anti-inflammatory Drug Start: 11-13-2023 End: 06-03-2024 diclofenac sodium 1 % gel Indications: Bilateral primary osteoarthritis of knee Apply 4 g topically in the morning and 4 g in the evening and 4 g before bedtime. 350 g 11 11/13/2023 06/03/2024 Discontinued docosahexaenoic acid 120 mg / eicosapentaenoic acid [...] 3 11/13/2023 Active Elderberry preparation (20 sources) End: 06-03-2024 take 1 capsule by mouth in the morning Elderberry 500 MG capsule Take 1 capsule by mouth in the morning. 06/03/2024 Discontinued take 1 capsule by mouth in the [...] tablet (20 sources) Loop Diuretic Start: 04-17-2024 End: 06-03-2024 take 1 tablet by mouth once daily as needed for edema furosemide (Lasix) 40 MG tablet Indications: Impaired fasting glucose , Systolic murmur , Edema of extremities TAKE 1 TABLET BY MOUTH DAILY NEEDED (LOWER EXTREMITY EDEMA) 90 tablet 1 04/17/2024 06/03/2024 Discontinued Start: 08-29-2023 take 1 tablet by kirstin [...] pain Active take 1 capsule by mo [facility] three times daily Gabapentin 100 MG 1 capsule Orally three times daily Active glucosamine sulfate 500 mg oral tablet (1 source) take 1 tablet by mouth twice daily Glucosamine Sulfate (GLUCOSAMINE) 500 mg tab Take 1 tablet by mouth two times a day. 1500 mg chondroitin sulfate 1200mg sodium Active hydroCHLOROthiazide 25 mg oral tablet (20 sources) Thiazide Diuretic Start: End: take 1 tablet by mouth twice daily hydroCHLOROthiazide (HYDRODiuril) 25 MG tablet Indications: Benign hypertension (CMS/HCC) TAKE 1 TABLET BY MOUTH TWICE A DAY 180 tablet 3 04/17/2024 06/03/2024 Discontinued Start: 07-17-2023 take 1 tablet by kirstin [...] 08/06/2022 Active take 1 tablet by kirstin th once daily hydroCHLOROthiazide 25 MG Oral Tablet Take 1 tablet daily Quantity: 90 Refills: 3 Ordered: 11-Dec-2017 DO Active Microzide Active Hydrochlorothiazide-25 mg (10 sources) Hydrochlorothiaz jordyn-25 mg Active levothyroxine sodium 0.125 mg oral tablet (20 sources) l-Thyroxine Start: 02-25-2023 End: 06-03-2024 take 1 tablet by mouth once daily levothyroxine (Synthroid) 125 MCG tablet Indications: Other specified hypothyroidism Take 1 tablet (125 mcg) by mouth Daily 90 tablet 3 06/03/2024 Active take 1 tablet by kirstin th [...] sources) Neuriva - as directed Orally Active Warren 3 Fish Oil (10 sources) Warren 3 Fish Oil Active Warren-3 Fatty Acids, FISH OIL, 360-1,200 mg cap (1 source) Warren-3 Fatty Acids, FISH OIL, 360-1,200 mg cap [...] extended release oral tablet (20 sources) Start: 05-06-2024 End: 06-03-2024 take 1 tablet by mouth once daily as needed potassium chloride CR (Klor-Con M10) 10 MEQ ER tablet Indications: Impaired fasting glucose , Systolic murmur , Edema of extremities TAKE 1 TABLET (10 MEQ) BY MOUTH DAILY NEEDED (ON DAYS WHEN LASIX IS TAKEN) DO NOT CRUSH OR CHEW. 90 tablet 05/06/2024 06/03/2024 Discontinued Start: 08-29-2023 take 1 tablet by kirstin th once daily as needed KLOR-CON 10 MEQ ER tablet Indications: Impaired fasting glucose , Systolic murmur , Edema of extremities TAKE 1 TABLET (10 MEQ) BY MOUTH DAILY NEEDED (ON DAYS WHEN LASIX IS TAKEN) DO NOT CRUSH OR CHEW. 90 tablet 1 08/29/2023 Active predniSONE 20 mg oral tablet (11 sources) Start: 03-05-2023 predniSONE (De ltasone) 20 MG tablet Indications: Lumbar back pain Take 2 tablets for 4 days, then take 1 tablet for 3 days by mouth 11 tablet 0 03/05/2023 Active take 1 tablet by kirstin th every twenty-four hours predniSONE 20 MG 1 tablet Orally Once a day Not-Taking pregabalin 300 mg oral capsule (20 sources) Start: 09-25-2023 End: 06-03-2024 take 1 capsule by mouth at bedtime pregabalin (Lyrica) 300 MG capsule Indications: Neuralgia and neuritis, unspecified TAKE 1 CAPSULE (300 MG) BY MOUTH IN THE MORNING AND AT BEDTIME 180 capsule 1 06/03/2024 Active Start: 04-01-2023 take 1 capsule by mo [facility] in the morning pregabalin (Lyrica) 300 MG [...] boulardii 250 mg oral capsule (20 sources) End: 06-03-2024 take 1 capsule by mouth in the morning saccharomyces boulardii (Florastor) 250 MG capsule Take 250 mg by mouth in the morning and 250 mg in the evening. 06/03/2024 Discontinued 0.25 mg, 0.5 mg dose 1.5 ml [...] solution pen-injector (20 sources) Start: 12-09-2023 End: 06-03-2024 inject 1 mg by subcutaneous injection every week semaglutide (Ozempic, 1 MG/DOSE,) 4 MG/3ML solution pen-injector Indications: Type 2 diabetes mellitus without complication, without long-term current use of insulin Inject 1 mg under the skin 1 (one) time per week 9 mL 1 12/09/2023 06/03/2024 Discontinued Start: 12-09-2023 End: 06-06-2024 inject 1 mg by subcutaneous injection every week semaglutide (Ozempic, 1 MG/DOSE,) 4 MG/3ML solution pen-injector Indications: Type 2 diabetes mellitus without complication, without long-term current use of insulin Inject 1 mg under the skin 1 (one) time per week 9 mL 1 12/09/2023 06/06/2024 Active Start: 12-09-2023 End: 06-06-2024 inject 1 mg by subcutaneous injection every week semaglutide (Ozempic, 1 MG/DOSE,) 4 MG/3ML solution pen-injector Indications: Type 2 diabetes mellitus without complication, without long-term current use of insulin ([facility]) Inject 1 mg under the [...] 14 days. 3 mL 11/13/2023 12/24/2023 Active Tirzepatide (Mounjaro) 2.5 MG/0.5ML solution auto-injector (6 sources) Start: 06-03-2024 End: 11-30-2024 inject 2.5 mg by subcutaneous injection every week Tirzepatide (Mounjaro) 2.5 MG/0.5ML solution auto-injector Indications: Type 2 diabetes mellitus without complication, without long-term current use of insulin Inject 2.5 mg under the skin 1 (one) time per week 6 mL 1 06/03/2024 11/30/2024 Active ubidecarenone 200 mg oral capsule (20 [...] tablet (4 sources) Nonsteroidal Anti-inflammatory Drug Start: 12-22-19 End: 10-22-19 take 1 tablet by mouth every six [...] 0 Refills: 0 Ordered: 29-May-2017 DO Active Warren 3 CAPS (7 sources) Warren 3 CAPS Quantity: 0 Refills: 0 Ordered: 29-May-2017 DO Active 1 ml triamcinolone acetonide 40 mg/ml prefilled syringe (4 sources) Corticosteroid Start: 06-12-19 End: 06-12-19 triamcinolone acetonide (Kenalog-40) injection 20 mg Start: 06-11-2024 End: 06-11-2024 triamcinolone acetonide (Cristobal alog-40) injection 20 mg Start: 06-11-2024 End: 06-11-2024 20 mg, Intra-lesional, Once, On [facility] 06/11/24 at 1530, For 1 dose Start: 06-11-2024 End: 06-11-2024 20 mg, Intra-lesional, Once, On [facility] 06/11/24 at 1530, For 1 dose Warfarin (10 sources) Vitamin K Antagonist Warfarin [...] cerebrovascular disease] Chronic Miscellaneous mental health disorders (8 sources) Psychophysiologic insomnia; Translations: [Psychophysiologic insomnia] 11-27-2023 [...] primary osteoarthritis, right knee] 10-22-2023 Chronic Other acquired deformities (6 sources) Contracture of knee joint; Translations: [Contracture, unspecified knee] Onset: 5 06-03-2024 Chronic Other aftercare (7 sources) Postoperative visit; [...] joint] 01-08-2024 Chronic Other connective tissue disease (4 sources) Neuropathy; Translations: [Neuralgia and neuritis, unspecified] [...] keratosis; Translations: [Other seborrheic keratosis] 02-03-2024 Episodic Other skin disorders (2 sources) Actinic keratosis; Translations: [Actinic keratosis] 06-11-2024 Episodic Other skin disorders (2 sources) Keloid scar; Translations: [Hypertrophic scar] 06-11-2024 Episodic Residual codes; unclassified (20 sources) Obstructive sleep apnea syndrome; Translations: [Obstructive sleep apnea (adult) (pediatric)] Onset: 7 09-26-2022 Chronic Spondylosis; intervertebral disc disorders; other back problems (20 sources) Solitary sacroiliitis; Translations: [Sacroiliitis, not elsewhere classified] Onset: 3 Chronic Thyroid disorders (20 sources) Hypothyroidism; Translations: [Hypothyroidism, unspecified] Onset: 3 09-26-2022 Chronic Unclassified (2 sources) Z48.812 78714/82 Onset: 8 Unclassified (1 source) Obesity, Class II, BMI 35-39.9; Translations: [Obesity, Class II, BMI 35-39.9] Onset: 4 Viral infection (2 sources) Herpes simplex; Translations: [Herpesviral infection, unspecified] 06-03-2024 Episodic Past or Other Problems Problem Classification Problem Date Documented Date Episodic/Chronic Acute cerebrovascular disease (6 sources) Embolic stroke; Translations: [Cerebral infarction, unspecified] Onset: 01-01-2024 Resolved: 06-03-2024 06-03-2024 Chronic Allergic reactions (1 source) Allergy to penicillin; [...] Interpretation Reference Range Facility No Panel Informationon 06-11 [facility] HbA1c (Bld) [Mass fraction]o n 06-03-2024 Interpretation and review of laboratory results Abnormal [facility] Laboratory - Hematology and Cell countson 06-03-2024 HbA1c (Bld) [Mass fraction] 5.9 % [facility] CARDIOCHECK - LIPID AND GLUC OSEon 04-30-2024 Cholesterol [Mass/Vol] 124 mg/dL [facility] - 200 [facility] Cholesterol in HDL [Mass/Vol] 56 mg/dL M: 35-65 F: 35-80 [facility] Cholesterol in LDL [Mass/Vol] 68 mg/dL NINF - 100 [facility] Glucose [Mass/Vol] 99 mg/dL [facility] - 100 [facility] Interpretation and review of laboratory results Abnormal [facility] Triglyceride [Mass/Vol] 95 mg/dL [facility] - 150 [facility] No Panel Informationon 02-02 Type of biopsy: [...] taken Amount of lidocaine used: 0.5 cc [facility] Type of biopsy: tangential Informed consent: discussed [...] taken Amount of lidocaine used: 0.5 cc [facility] Basic metabolic 2000 panelon 01-02-2024 Anion gap [Moles/Vol] 10 mmol/L Normal 8-15 [facility] Comment on above: Order Comment: Speci men Type: BLOOD SPECIMEN Ordering Facility: [facility] Address: [address] [place] [address] Performed By: #### 2 4321-2 #### [facility] [place] [id number] [place] [address] [place] Calcium [Mass/Vol] 9.2 mg/dL Normal 8.5-10.2 [facility] Comment on above: Order Comment: Speci men Type: BLOOD SPECIMEN Ordering Facility: [facility] Address: [address] [place] [address] Performed By: #### 2 4321-2 #### [facility] [place] [id number] [place] [address] [place] Chloride [Moles/Vol] 103 mmol/L Normal 98-107 [facility] Comment on above: Order Comment: Speci men Type: BLOOD SPECIMEN Ordering Facility: [facility] Address: [address] [place] [address] Performed By: #### 2 4321-2 #### [facility] [place] [id number] [address] [place] [address] [place] CO2 [Moles/Vol] 28 mmol/L Normal 22-30 [facility] ital Comment on above: Order Comment: Speci men Type: BLOOD SPECIMEN Ordering Facility: [facility] Address: [address] [place] [address] Performed By: #### 2 4321-2 #### [facility] [place] [id number] [place] [address] [place] Creatinine [Mass/Vol] 0.85 mg/dL Normal 0.58-0.96 [facility] Comment on above: Order Comment: Speci men Type: BLOOD SPECIMEN Ordering Facility: [facility] Address: [address] [place] [address] Performed By: #### 2 4321-2 #### [facility] [place] [id number] [place] [address] [place] Creatinine and Glomerular filtration rate.predicted panel (S/P/Bld) 77 mL/min/1.73m??? Normal >=60 [facility] Comment on above: Order Comment: Iván fernandez Type: BLOOD SPECIMEN Ordering Facility: [facility] Address: [address] [place] [address] Result Comment: Viviane mated Glomerular Filtration Rate [...] GFR. Performed By: #### 2 4321-2 #### [facility] CLIA [id number] [facility] [place] [address] [place] Glucose [Mass/Vol] 152 mg/dL High 74-99 [facility] Comment on above: Order Comment: Iván fenrandez Type: BLOOD SPECIMEN Ordering Facility: [facility] Address: [address] [place] [address] Result Comment: The [place] Diabetes Association (ADA) provides guidance for cutoff [...] Standards of Medical Care in Diabetes 2016, [place] [employer]. Diabetes Care. 2016.39(Suppl 1). Performed By: #### 2 4321-2 #### [facility] CLIA [id number] [facility] [place] [address] [place] Potassium [Moles/Vol] 3.5 mmol/L Low 3.7-5.1 [facility] Comment on above: Order Comment: Speci men Type: BLOOD SPECIMEN Ordering Facility: [facility] Address: [address] [place] [address] Performed By: #### 2 4321-2 #### [facility] [place] [id number] [address] [place] [id number] [place] Sodium [Moles/Vol] 141 mmol/L Normal 136-144 [facility] Comment on above: Order Comment: Speci men Type: BLOOD SPECIMEN Ordering Facility: [facility] Address: [address] [place] [address] Performed By: #### 2 4321-2 #### [facility] IA [id number] [address] [place] [address] [place] Urea nitrogen [Mass/Vol] 21 mg/dL Normal 7-21 [facility] Comment on above: Order Comment: Speci men Type: BLOOD SPECIMEN Ordering Facility: [facility] Address: [address] [place] [address] Performed By: #### 2 4321-2 #### [facility] IA [id number] [address] [place] [address] [place] CBC panel Auto (Bld)on 01-01 Erythrocyte distribution width (RBC) [Ratio] 12.7 % Normal 11.5-15.0 [facility] Comment on above: Order Comment: Speci men Type: BLOOD SPECIMEN Ordering Facility: [facility] Address: [address] [place] [address] Performed By: #### 5 8410-2 #### [facility] [place] [id number] [place], [place] [id number] [place] [address] [place] Hematocrit (Bld) [Volume fraction] 40.1 % Normal 36.0-46.0 [facility] Comment on above: Order Comment: Speci men Type: BLOOD SPECIMEN Ordering Facility: [facility] Address: [address] [place] [address] Performed By: #### 5 8410-2 #### [facility] CLIA [id number] [place] [address] [place] Hemoglobin (Bld) [Mass/Vol] 13.6 g/dL Normal 11.5-15.5 [facility] Comment on above: Order Comment: Speci men Type: BLOOD SPECIMEN Ordering Facility: [facility] Address: [address] [place] [address] Performed By: #### 5 8410-2 #### [facility] CLIA [id number] [place] MCH (RBC) [Entitic mass] 29.2 pg Normal 26.0-34.0 [facility] Comment on above: Order Comment: Speci men Type: BLOOD SPECIMEN Ordering Facility: [facility] Address: [address] [place] [address] Performed By: #### 5 8410-2 #### [facility] IA [id number] [address] [place] [address] [place] MCHC (RBC) [Mass/Vol] 33.9 g/dL Normal 30.5-36.0 [facility] Comment on above: Order Comment: Speci men Type: BLOOD SPECIMEN Ordering Facility: [facility] Address: [address] [place] [address] Performed By: #### 5 8410-2 #### [facility] [place] [id number] [address] [place] [address] [place] MCV (RBC) [Entitic vol] 86.2 fL Normal 80.0-100.0 [facility] Comment on above: Order Comment: Speci men Type: BLOOD SPECIMEN Ordering Facility: [facility] Address: [address] [place] [address] Performed By: #### 5 8410-2 #### [facility] [place] [id number] [address] [place] Nucleated RBC (Bld) [#/Vol] 10*3/uL Normal <0.01 [facility] Comment on above: Order Comment: Speci men Type: BLOOD SPECIMEN Ordering Facility: [facility] Address: [address] [place] [address] Performed By: #### 5 8410-2 #### [facility] CLIA [id number] [place] [address] [place] Platelet mean volume (Bld) [Entitic vol] 10.2 fL Normal 9.0-12.7 [facility] Comment on above: Order Comment: Speci men Type: BLOOD SPECIMEN Ordering Facility: [facility] Address: [address] [place] [address] Performed By: #### 5 8410-2 #### [facility] CLIA [id number] [place] [address] [place] Platelets (Bld) [#/Vol] 237 10*3/uL Normal 150-400 [facility] Comment on above: Order Comment: Speci men Type: BLOOD SPECIMEN Ordering Facility: [facility] Address: [address] [place] [address] Performed By: #### 5 8410-2 #### [facility] IA [id number] [place] [address] [place] RBC (Bld) [#/Vol] 4.65 10*6/uL Normal 3.90-5.20 [facility] Comment on above: Order Comment: Speci men Type: BLOOD SPECIMEN Ordering Facility: [facility] Address: [address] [place] [address] Performed By: #### 5 8410-2 #### [facility] CLIA [id number] [place] [address] [place] WBC (Bld) [#/Vol] 10.30 10*3/uL Normal 3.70-11.00 [facility] Comment on above: Order Comment: Speci men Type: BLOOD SPECIMEN Ordering Facility: [facility] Address: [address] [place] [address] Performed By: #### 5 8410-2 #### [facility] IA [id number] [address] [place] [address] [place] [facility] BAS METAB 2000 PNL SERPL on 01-02-2024 Anion gap [Moles/Vol] 10 mmol/L 8 - 15 mmol/L [facility] Calcium [Mass/Vol] 9.2 mg/dL 8.5 - 10. 2 mg/dL [facility] Chloride [Moles/Vol] 103 mmol/L 98 - 107 mmol/L [facility] CO2 [Moles/Vol] 28 mmol/L 22 - 30 mmol/L [facility] Creatinine [Mass/Vol] 0.85 mg/dL 0.58 - 0.96 mg/dL [facility] GFR/1.73 sq M.predicted CKD-EPI (S/P/Bld) [Vol rate/Area] 77 - PINF [facility] Comment on above: Estimated Glomerular Filtration [...] 152 mg/dL High 74 - 99 mg/dL [facility] Comment on above: The [place] Diabete s Association (ADA) provides guidance for [...] Standards of Medical Care in Diabetes 2016, [place] Diabetes Association. Diabetes Care. 2016.39(Suppl 1). Interpretation and review of laboratory results Abnormal [facility] Potassium [Moles/Vol] 3.5 mmol/L Low 3.7 - 5.1 mmol/L [facility] Sodium [Moles/Vol] 141 mmol/L 136 - 144 mmol/L [facility] Urea nitrogen [Mass/Vol] 21 mg/dL 7 - 21 mg/dL [facility] Specimen Type: BLOOD SPECIMEN Ordering Facility[facility] Address: [address] [place] [address] Original Ordering Provider: JORGE L HATCH [facility] CBC PNL BLD AUTOon 01-01 [facility] NRBC # BLD AUTO <0.01 NINF [facility] PLATELET # BLD AUTO 237 [facility] PMV BLD AUTO 10.2 fL 9.0 - 12.7 fL [facility] WBC # BLD AUTO 10.3 [facility] Erythrocyte distribution width (RBC) [Ratio] 12.7 % 11.5 - 15.0 % [facility] Hematocrit (Bld) [Volume fraction] 40.1 % 36.0 - 46.0 % [facility] Hemoglobin (Bld) [Mass/Vol] 13.6 g/dL 11.5 - 15.5 g/dL [facility] MCH (RBC) [Entitic mass] 29.2 pg 26.0 - 34.0 pg [facility] MCHC (RBC) [Mass/Vol] 33.9 g/dL 30.5 - 36.0 g/dL [facility] MCV (RBC) [Entitic vol] 86.2 fL 80.0 - 100.0 fL [facility] RBC (Bld) [#/Vol] 4.65 10*6/uL 3.90 - 5.2 0 m/uL [facility] Specimen Type: BLOOD SPECIMEN Ordering Facility[facility] Address: [address] [place] [address] Original Ordering Provider: JORGE L HATCH [facility] CNDSon 01-02-2024 CNDS HNO ID: [id number] Author: JORGE L HATCH MD Service: Orthopaedic Surgery Author Type: Physician Fisher Weir Type: Discharge Summary Filed: 01/14/2024 13:55 Note [...] mEq tablet Generic drug: potassium chloride ER Warren-3 Fatty Acids (FISH OIL) 360-1,200 mg Cap OZEMPIC 0.25 mg or 0.5 mg(2 mg/1.5 mL) pen Generic drug: semaglutide pregabalin 300 mg capsule Commonly known as: LYRICA SYNTHROID 150 mcg tablet Generic drug: levothyroxine TYLENOL ARTHRITIS ORAL VITAMIN D3 ORAL XANAX 0.25 mg tablet Generic drug: ALPRAZolam Where to Get Your Medications These medications were sent to [facility] [address] [place] [id number] - [address] [place] [address] - [phone] [place], [place] [address] oxyCODONE IR 5 mg immediate release tablet You can get these medications from any pharmacy You don't need a prescription for these medications docusate sodium 100 mg capsule Future Appointments: SIGNATURE: Macho Salazar PA-C PATIENT NAME: Carolynn Givens DATE: 01/02/24 TIME: 3:39 PM Normal [facility] THERAPY NT 01-02-2024 THERAPY NT HNO ID: [id number] Author: JAYDE MONROE OT/Harjinder Service: Occupational Therapy Author Type: Occupational Therapist Type: Therapy (PT/OT/Speech/Resp) Filed: 01/02/2024 15:23 Note Text: Occupational Therapy Evaluation Summary SERVICE DATE: 01/02/2024 SERVICE TIME: 1426 to 1505 ROOM: [place] [address] OT 6 Clicks Score: 22 Total Joint [...] Wheeled, Shower Chair, Grab Bars- Shower, Cane, 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 RN aware. COGNITION Responsiveness: Alert, Awake Follows Commands: 3-step Commands THERAPY DIAGNOSIS Reduced mobility-other, Decreased activities of daily living (ADL), Muscle Weakness (generalized), General symptoms and signs-other TREATMENT INTERVENTIONS Evaluation, Self Long-Term Management (99321) Timed Code Treatment (minutes): 23 Skilled Treatment Time (minutes): 39 TRAINING AND EDUCATION PROVIDED Assistive Device Use, Bed Mobility, Adaptive Equipment/DME, Discharge Planning, Benefits of In-Hospital Mobility, Expected Functional Level, IADLs/Home Management, Home Set-up/Modifications, Lower Extremity Dressing, Positioning, Precautions/Restrictions, Role of Occupational Therapy, Standing Balance to Improve [place] with ADLs/Self-Care, Transfer - Bed to Chair, [...] January 02, 2024 TIME: 3:23 PM Normal [facility] THERAPY NT HNO ID: [id number] Author: GUADALUPE TERESA, PT, DPT Service: Physical Therapy Author Type: Physical Therapist Type: Therapy (PT/OT/Speech/Resp) Filed: 01/02/2024 14:55 Note Text: Physical Therapy Treatment Summary SERVICE DATE: 01/02/2024 SERVICE TIME: 1402 to 1426 ROOM: [place] [address] PT 6 Clicks Score: 19 Total Joint [...] CURRENT HOSPITAL COURSE s/p R TKA 12/31 ([place]) Relevant Past Medical History: CVA after surgery [...] 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 in room THERAPY DIAGNOSIS Reduced mobility-other, Difficulty walking-musculoskeletal, Abnormalities of gait and mobility-other TREATMENT INTERVENTIONS Therapeutic Activity (61589), Gait Training (66298) Timed Code Treatment (minutes): 24 Skilled Treatment [...] DATE: January 02, 2024 TIME: 2:55 PM [facility] THERAPY NT HNO ID: [id number] Author: GUADALUPE TERESA PT, DPT Service: Physical Therapy Author Type: Physical Therapist Type: Therapy (PT/OT/Speech/Resp) Filed: 01/02/2024 10:06 Note Text: Physical Therapy Treatment Summary SERVICE DATE: 01/02/2024 SERVICE TIME: 854 to 942 ROOM: [place] [address] PT 6 Clicks Score: 19 Total Joint [...] 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 Agreeable to PT treatment THERAPY DIAGNOSIS Reduced mobility-other, Muscle Weakness (generalized), Difficulty walking-musculoskeletal, Abnormalities of gait and mobility-other, Unsteadiness on feet TREATMENT INTERVENTIONS Gait Training (42977), Therapeutic Activity (39050) Timed Code Treatment (minutes): 48 Skilled Treatment [...] January 02, 2024 TIME: 10:06 AM Normal [facility] US LEG VEIN DVT UNL VAS LABo n 01-02-2024 LEG VEIN DVT UNL VAS LAB Non-Invasive Vascular Laboratory [facility] Lower Extremity Venous Duplex Unilateral - [...] the common femoral vein. Technologist: Christopher Luo [facility] Ordering physician: MACHO SALAZAR Referring physician: MACHO LAU Interpreting physician: Rizwana Salazar MD, YASMIN Final CC [employer] [facility] Image : [id number] See Link below for Image Normal [facility] ANES POSTPROC EVALon 024 ANES POSTPROC EVAL HNO ID: [id number] Author: QUINN SALAZAR MD Service: Anesthesiology Author [...] January 01, 2024 TIME: 6:58 PM CSN: [id number] [facility] ANES PRE-OPon 01-01-2024 ANES PRE-OP HNO ID: [id number] Author: QUINN SALAZAR MD Service: Anesthesiology Author Type: Anesthesiologist Type: Anesthesia Preprocedure Evaluation Filed: 01/01/2024 12:28 Note Text: ANESTHESIOLOGY DAY OF SURGERY NOTE : 1960 Procedure Information Date/Time: 01/01/24 1245 Procedure: ARTHROPLASTY REPLACE JOINT TOTAL KNEE JOÃO/EX STAY (Right: Knee) Location: OR / OR Surgeons: Jorge L Hatch MD [...] and consent discussed: yes. Patient / Responsible [employer] agrees to proceed: yes Patient / [...] January 01, 2024 TIME: 12:23 PM CSN: [id number] [facility] BRIEF OP NOTon 01-01-2024 BRIEF OP NOT HNO ID: [id number] Author: JORGE L HATCH MD Service: Orthopaedic Surgery Author Type: Physician Type: Brief Op Note Filed: 01/01/2024 14:49 Note Text: TOTAL KNEE ARTHROPLASTY BRIEF OPERATIVE / PROCEDURE NOTE LOG ID: [id number] Surgery/Procedure Date: 01/01/2024 Incision/Procedure Start Time: 1:53 PM Incision Close/Procedure End Time: Surgeon(s)/Proceduralist( s) and Fisher Weir(s): Surgeons and Role: * Jorge L Hatch MD - Primary Physician Fisher Weir: Zulma Welsh PA-C; Macho Salazar PA-C Procedure(s): [...] January 01, 2024 TIME: 2:47 PM [facility] OPERATIVE NOon 01-01-2024 OPERATIVE NO HNO ID: [id number] Author: JORGE L HATCH MD Service: Orthopaedic Surgery Author Type: Physician Type: Operative Report Filed: 01/01/2024 14:50 Note Text: KNEE ARTHROPLASTY BRIEF OPERATIVE / PROCEDURE NOTE LOG ID: [id number] Surgery/Procedure Date: 01/01/2024 Incision/Procedure Start Time: 1:53 PM Incision Close/Procedure End Time: Surgeon(s)/Proceduralist( s) and Fisher Weir(s): Surgeons and Role: * Jorge L Hatch MD - Primary Physician Fisher Weir: Zulma Welsh PA-C; Macho Salazar PA-C Procedure(s): [...] the medial compartment where she is completely [id number] with erosions into the tibial plateau large [...] saw and sized to a 32 millimeter. Manager Video holes were then drilled of the distal femur, the undersurface of the patella, and a V keel slot and 4 ferry pilot holes were then prepared the proximal [...] closure assistance was provided by the Physician Fisher Weir Service and necessary for optimum results for surgery. Physician Fisher Weir's were present because there was no qualified [...] January 01, 2024 TIME: 2:47 PM Normal [facility] THERAPY NTon 01-01-2024 THERAPY NT HNO ID: [id number] Author: FRANCA LABOY, PT, DPT Service: Physical Therapy Author Type: Physical Therapist Type: Therapy (PT/OT/Speech/Resp) Filed: 01/01/2024 18:15 Note Text: Physical Therapy Evaluation Summary SERVICE DATE: 01/01/2024 SERVICE TIME: 1729 to 1753 ROOM: [place] [address] PT 6 Clicks Score: 18 Total Joint Replacement Discharge Readiness: Pending Physical Therapy Clearance DISCHARGE RECOMMENDATIONS Outpatient PT Recommended Discharge Disposition Comments: Pt plans to have OP out in [place] but needs to get appt set Recommended [...] 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, + 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, 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 SUBJECTIVE Pt in bed My knee is really starting to hurt THERAPY DIAGNOSIS Reduced mobility-other TREATMENT INTERVENTIONS Evaluation, Gait Training (03826) Timed Code Treatment (minutes): 9 Skilled Treatment [...] DATE: January 01, 2024 TIME: 6:15 PM [facility] echo transthoracicon [facility] echo transthoracic [facility] [place] [address] Echocardiogram Signed Patient: Carolynn Givens MR#: [id number] : 1960 Acct:[id number] Age/Sex: 63 / F ADM Date: 12/20/23 Loc: EL Room: Type: [facility] Attending Dr: Brooks Calixto DO Ordering Provider: Brooks Calixto DO Date of Service: 12/20/23/ [facility] echo transthoracic: Murmur, Edema Copies to: MD Brooks Hagen Marily Barnard AM Patient Location: : 1960 Gender: Female [...] Electronically : : : : signed by: Sukhwinder : : Lexx : : : : : : on: 12/20/2023, : : 12:56 PM : Transcribed By: CLARK Performed At: 12/20/23 0936 Signed By: Sukhwinder Hallman MD 12/20/23 1256 Normal [facility] BI MAMMOGRAM SCREENING TOMOS YNTHESIS [...] [Moles/Vol] 9 mmol/L 8 - 15 mmol/L [facility] Calcium [Mass/Vol] 9.6 mg/dL 8.5 - 10. 2 mg/dL [facility] Chloride [Moles/Vol] 99 mmol/L 98 - 107 mmol/L [facility] CO2 [Moles/Vol] 32 mmol/L High 22 - 30 mmol/L [facility] Creatinine [Mass/Vol] 0.80 mg/dL 0.58 - 0.96 mg/dL [facility] GFR/1.73 sq M.predicted among non-blacks MDRD (S/P/Bld) [Vol rate/Area] 83 mL/min/{1.73_m2} - PINF [facility] Comment on above: Estimated Glomerular Filtration [...] [Mass/Vol] 80 mg/dL 74 - 99 mg/dL [facility] Comment on above: The [place] Diabete s Association (ADA) provides guidance for [...] Standards of Medical Care in Diabetes 2016, [place] Diabetes Association. Diabetes Care. 2016.39(Suppl 1). Interpretation and review of laboratory results Abnormal [facility] Potassium [Moles/Vol] 3.5 mmol/L Low 3.7 - 5.1 mmol/L [facility] Sodium [Moles/Vol] 140 mmol/L 136 - 144 mmol/L [facility] Urea nitrogen [Mass/Vol] 13 mg/dL 7 - 21 mg/dL [facility] Anion gap [Moles/Vol] 9 mmol/L Normal 8-15 [facility] Comment on above: Order Comment: Speci men Type: BLOOD SPECIMEN Ordering Facility[facility] Address: [address] [place] [address] Performed By: #### 2 4321-2 #### [facility] IA [id number] [address] [place] [address] [place] Calcium [Mass/Vol] 9.6 mg/dL Normal 8.5-10.2 [facility] Comment on above: Order Comment: Speci men Type: BLOOD SPECIMEN Ordering Facility: [facility] Address: [address] [place] [address] Performed By: #### 2 4321-2 #### [facility] IA [id number] [address] [place] [address] [place] Chloride [Moles/Vol] 99 mmol/L Normal 98-107 [facility] Comment on above: Order Comment: Speci men Type: BLOOD SPECIMEN Ordering Facility[facility] Address: [address] [place] [address] Performed By: #### 2 4321-2 #### [facility] IA [id number] [address] [place] [address] [place] CO2 [Moles/Vol] 32 mmol/L High 22-30 [facility] Comment on above: Order Comment: Speci men Type: BLOOD SPECIMEN Ordering [facility] Address: [address] [place] [address] Performed By: #### 2 4321-2 #### [facility] IA [id number] [address] [place] [address] [place] Creatinine [Mass/Vol] 0.80 mg/dL Normal 0.58-0.96 [facility] Comment on above: Order Comment: Speci men Type: BLOOD SPECIMEN Ordering [facility] Address: [address] [place] [address] Performed By: #### 2 4321-2 #### [facility] IA [id number] [address] [place] [address] [place] Creatinine and Glomerular filtration rate.predicted panel (S/P/Bld) 83 mL/min/1.73m??? Normal >=60 [facility] Comment on above: Order Comment: Iván fernandez Type: BLOOD SPECIMEN Ordering [facility] Address: [address] [place] [address] Result Comment: Viviane mated Glomerular Filtration Rate [...] GFR. Performed By: #### 2 4321-2 #### [facility] CLIA [id number] [facility] [place] [address] [place] Glucose [Mass/Vol] 80 mg/dL Normal 74-99 [facility] Comment on above: Order Comment: Iván fernandez Type: BLOOD SPECIMEN Ordering Facility[facility] Address: [address] [place] [address] Result Comment: The [place] Diabetes Association (ADA) provides guidance for cutoff [...] Standards of Medical Care in Diabetes 2016, [place] Diabetes Association. Diabetes Care. 2016.39(Suppl 1). Performed By: #### 2 4321-2 #### [facility] CLIA [id number] [address] [facility] [place] [address] [place] Potassium [Moles/Vol] 3.5 mmol/L Low 3.7-5.1 [facility] Comment on above: Order Comment: Iván fernandez Type: BLOOD SPECIMEN Ordering Facility: [facility] Address: [address] [place] [address] Performed By: #### 2 4321-2 #### [facility] CLIA [id number] [address] [place] [address] [place] Sodium [Moles/Vol] 140 mmol/L Normal 136-144 [facility] Comment on above: Order Comment: Speci men Type: BLOOD SPECIMEN Ordering Facility[facility] Address: [address] [place] [address] Performed By: #### 2 4321-2 #### [facility] CLIA [id number] [address] [place] [address] [place] Urea nitrogen [Mass/Vol] 13 mg/dL Normal 7-21 [facility] Comment on above: Order Comment: Speci men Type: BLOOD SPECIMEN Ordering Facility[facility] Address: [address] [place] [address] Performed By: #### 2 4321-2 #### [facility] CLIA [id number] [address] [place] [address] [place] CBC panel Auto (Bld)on 12-10 Erythrocyte distribution width (RBC) [Ratio] 14.8 % 11.5 - 15.0 % [facility] Hematocrit (Bld) [Volume fraction] 47.4 % High 36.0 - 46.0 % [facility] Hemoglobin (Bld) [Mass/Vol] 14.8 g/dL 11.5 - 15.5 g/dL [facility] Interpretation and review of laboratory results Abnormal [facility] MCH (RBC) [Entitic mass] 29.6 pg 26.0 - 34.0 pg [facility] MCHC (RBC) [Mass/Vol] 31.2 g/dL 30.5 - 36.0 g/dL [facility] MCV (RBC) [Entitic vol] 94.8 fL 80.0 - 100.0 fL [facility] Nucleated RBC (Bld) [#/Vol] NINF [facility] Platelet mean volume (Bld) [Entitic vol] 9.5 fL 9.0 - 12.7 fL [facility] Platelets (Bld) [#/Vol] 218 10*3/uL [facility] RBC (Bld) [#/Vol] 5.00 10*6/uL 3.90 - 5.2 0 m/uL [facility] WBC (Bld) [#/Vol] 6.19 10*3/uL [facility] Erythrocyte distribution width (RBC) [Ratio] 14.8 % Normal 11.5-15.0 [facility] Comment on above: Order Comment: Speci men Type: BLOOD SPECIMENOrdering Facility: [facility] Address: [address] [place] [address] Performed By: #### 5 8410-2 ####[facility] [id number] [address] [place] Hematocrit (Bld) [Volume fraction] 47.4 % High 36.0-46.0 [facility] Comment on above: Order Comment: Speci men Type: BLOOD SPECIMENOrdering Facility: [facility] Address: [address] [place] [address] Performed By: #### 5 8410-2 ####[facility] [id number] [address] [place] Hemoglobin (Bld) [Mass/Vol] 14.8 g/dL Normal 11.5-15.5 [facility] Comment on above: Order Comment: Speci men Type: BLOOD SPECIMENOrdering Facility: [facility] Address: [address] [place] [address] Performed By: #### 5 8410-2 ####[facility] [id number] [address] [place] MCH (RBC) [Entitic mass] 29.6 pg Normal 26.0-34.0 [facility] Comment on above: Order Comment: Speci men Type: BLOOD SPECIMENOrdering Facility: [facility] Address: [address] [place] [address] Performed By: #### 5 8410-2 ####[facility] [id number] [place] [id number] [place] MCHC (RBC) [Mass/Vol] 31.2 g/dL Normal 30.5-36.0 [facility] Comment on above: Order Comment: Speci men Type: BLOOD SPECIMENOrdering Facility: [facility] Address: [address] [place] [address] Performed By: #### 5 8410-2 ####[facility]ORY[facility]IA [id number] [place] [address] [place] MCV (RBC) [Entitic vol] 94.8 fL Normal 80.0-100.0 [facility] Comment on above: Order Comment: Speci men Type: BLOOD SPECIMENOrdering Facility: [facility] Address: [address] [place] [address] Performed By: #### 5 8410-2 ####[facility]ORY[facility]IA [id number] [place] [address] [place] Nucleated RBC (Bld) [#/Vol] 10*3/uL Normal <0.01 [facility] Comment on above: Order Comment: Speci men Type: BLOOD SPECIMENOrdering Facility: [facility] Address: [address] [place] [address] Performed By: #### 5 8410-2 ####[facility]ORYCLIA [id number] [place] [id number] [place] Platelet mean volume (Bld) [Entitic vol] 9.5 fL Normal 9.0-12.7 [facility] Comment on above: Order Comment: Speci men Type: BLOOD SPECIMENOrdering Facility: [facility] Address: [address] [place] [address] Performed By: #### 5 8410-2 ####[facility]ORYCLIA [id number] [facility] [place] [address] [place] Platelets (Bld) [#/Vol] 218 10*3/uL Normal 150-400 [facility] Comment on above: Order Comment: Speci men Type: BLOOD SPECIMENOrdering Facility: [facility] Address: [address] [place] [address] Performed By: #### 5 8410-2 ####[facility] [id number] [place] [address] [place] RBC (Bld) [#/Vol] 5.00 10*6/uL Normal 3.90-5.20 [facility] Comment on above: Order Comment: Speci men Type: BLOOD SPECIMENOrdering Facility: [facility] Address: [address] [place] [address] Performed By: #### 5 8410-2 ####[facility] [id number] [place] [address] [place] WBC (Bld) [#/Vol] 6.19 10*3/uL Normal 3.70-11.00 [facility] Comment on above: Order Comment: Speci men Type: BLOOD SPECIMENOrdering Facility: [facility] Address: [address] [place] [address] Performed By: #### 5 8410-2 ####[facility] [id number] [address] [place] [facility] CON[facility]M BLOOD TYPEon ABO O [facility] Specimen Type: BLOOD SPECIMEN [facility] Address: [address] [place] [address] BLOOD BANK CLIA [id number] [address] [place] [address] [facility] BLOOD TYPEon 024 ABO O Normal [facility] Comment on above: Order Comment: Speci men Type: BLOOD SPECIMEN [facility] Address: [address] [place] [address] Performed By: #### C ONABO #### [facility] CLIA [id number] [place] Rh Nom (Bld) Positive Normal [facility] Comment on above: Order Comment: Speci men Type: BLOOD SPECIMEN [facility] Address: [address] [place] [address] Performed By: #### C ONABO #### [facility] CLIA [id number] [address] [address] [place] ABO group Nom (Bld) O Deion [facility] HISTORY PHYSICALon HISTORY PHYSICAL HNO ID: [id number] Author: PACHECO VILLELA PA-C Service: ? Author Type: Physician Fisher Weir Type: H&P Filed: 12/23/2023 09:36 Note Text: [...] complete echo vijaya. As patient works at [employer] she will schedule and complete it there. [...] Procedure Analgesic Plan REASON FOR VISIT: Carolynn Gviens is a 63 year old female who [...] (MODERNA) 02 (more content not included)... Normal [facility] HbA1c (Bld)on 12-11-2023 Average glucose Estimated from glycated hemoglobin (Bld) [Mass/Vol] 128 mg/dL Normal [facility] Comment on above: Order Comment: Iván fernandez Type: BLOOD SPECIMEN [facility] Address: [address] [place] [address] Result Comment: eAG: (Estimated average glucose) is a calculated value from HgbA1c and is labor relations representative of the average blood glucose level in the last 2-3 month period. Performed By: #### 5 5454-3 #### [facility] CLIA [id number] [address] [place], [place] [address] [address] [place] HbA1c (Bld) [Mass fraction] 6.1 % High 4.3-5.6 [facility] Comment on above: Order Comment: Iván fernandez Type: BLOOD SPECIMEN Ordering Facility: [facility] Address: [address] [place] [address] Result Comment: Ignacio ican Diabetes Association guidelines indicate that patients with HgbA1c in the range 5.7-6.4% are at increased risk for development of diabetes, and intervention by lifestyle modification may be beneficial. HgbA1c greater or equal to 6.5% is considered diagnostic of diabetes. Performed By: #### 5 5454-3 #### [facility] CLIA [id number] [address] [facility] [place] [id number] [address] [place] Laboratory - Blood bankon Rh Nom (Bld) Positive [facility] No Panel Informationon 12-10 [facility] TYPE AND SCREEN,30 DAYon ABO O [facility] Comment on above: Order Comment: Speci men Type: BLOOD SPECIMEN Ordering Facility: [facility] Address: [address] [place] [address] Performed By: #### T SCR30 #### [facility] [id number] [address] [place] [address] [place] Rh Nom (Bld) Positive [facility] Comment on above: Order Comment: Speci men Type: BLOOD SPECIMEN Ordering Facility: [facility] Address: [address] [place] [address] Performed By: #### T SCR30 #### [facility] [place] [id number] [place] ABO group Nom (Bld) O [facility] Blood group antibody screen Ql Negative [facility] Rh Nom (Bld) Positive [facility] CNOVon 11-18-2023 CNOV Office Visit (FAITHSAV ) ----- CAROLYNN GIVENS ([id number]) 1960 F Date Time Provider Department 11/18/23 9:45 AM RIZWANA SALAZAR During your visit today, we recorded the following information about you: Rizwana Salazar MD 11/18/2023 3:55 PM Signed [facility] V[facility] Thor[facility] [place] DEPARTMENT OF VASCULAR SURGERY OUTPATIENT VISIT DATE November 18, 2023 OUTPATIENT VISIT TYPE CONSULTATION SERVICE DATE: 11/18/2023 SERVICE TIME: 9:53 AM PRIMARY CARE PHYSICIAN: Dr Bob Calixto ([facility]) REFERRING PROVIDER: Self Consult requested for [...] reviewed for today's visit: CAROTID BILATERAL Order: [id number] [facility] [address] [place] [address] Vascular Lab Report [facility] US CAROTID ARTERY DUPLEX BILATERAL Patient Name: CAROLYNN GIVENS Reading Physician: [id number] Eddie Marie MD Study Date: 09/25/2023 Ordering Provider: [id number] JACK BARBOSA MRN/PID: [id number] Fellow: Technologist: Carolynn Olvera Lena, [facility] Date of /Age: 405/25/1960 / 63 years Technologist 2: Gender: F Admission Status: Outpatient Location Performed: [facility] Diagnosis/ICD: Occlusion and stenosis of bilateral carotid arteries-I65.23 Indication: Carotid Occlusion/Stenosis w/o infarct CPT Codes: 56804 Cerebrovascular Carotid Duplex scan complete Pertinent History: Carotid surgery. RIGHT CEA. CONCLUSIONS: Right Carotid: Findings are consistent with less than 50% stenosis of the right proximal internal carotid artery. Laminar flow seen by color (more content not included)... Normal [facility] Panel Informationon 10-23 Razia Cruz MA 024 7:33 AM L Inj/Asp: L knee on 10/24/2023 8:25 AM Indications: pain Details: 22 G needle Medications: 1 mL betamethasone acetate-betamethasone sodium phosphate 6 (3-3) MG/ML [facility] No Panel Informationon 10-21 Tracey Carlos Nicolas, 10/22/2023 2:35 PM L Inj/Asp: R knee [...] discussed. Consent was given by the patient. [facility] XR Knee - right 1 or 2 Views on 10-22-2023 Imaging Result: X-rays AP weight-bearing bilateral knees and lateral of the right knee demonstrate medial compartment collapse with blqf-qq-kzqx and subchondral sclerosis and varus alignment bilateral knees. No fractures. Impression: Advanced osteoarthritis bilateral knees Willis Valenzuela D.O. [facility] Radiology Study observation (narrative) [facility] US CAROTID ARTERY DUPLE X BILATERALon 09-25-2023 [facility] US CAROTID ARTERY DUPLEX BILATERAL [facility] [address] [address] [id number] Vascular Lab Report [facility] US CAROTID ARTERY DUPLEX BILATERAL Patient Name: CAROLYNN GIVENS Reading Physician: [id number] Eddie Marie MD Study Date: 09/25/2023 Ordering Provider: [id number] JACK BARBOSA MRN/PID: [id number] Fellow: Technologist: Carolynn Olvera RVT, RDMS Date of /Age: 405/25/1960 / 63 years Technologist 2: Gender: F Admission Status: Outpatient Location Performed: [facility] Diagnosis/ICD: Occlusion and stenosis of bilateral carotid arteries-I65.23 Indication: Carotid Occlusion/Stenosis w/o infarct CPT Codes: 64213 Cerebrovascular Carotid Duplex scan complete Pertinent History: [...] Proximal 140 cm/s Right ICA/CCA Ratio 2.1 [id number] Eddie Marie MD Final [facility]illon 08-10-2023 Refill [id number] Carolynn Givens 1960 F Date Provider Department Center 08/10/2023 148-OVVICKY, [facility] SURG Second Fl Family History Problem Relation Age of Onset Colon cancer Mother Diabetic kidney disease Father Factor V Leiden deficiency Other Comments: siblings and grandchildren Family Status - Relation Status Age at Mother Father Other Reason for Visit and Comments: Med Change Request [411] Normal [facility] 36on 07-19-2023 36 Discussed with dorothyevens nt that I had reviewed her imaging with Dr. Augustin. 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 She has not previously had SI joint injections. He would suggest that she try these first. She did have 3 previous epidural steroid injections. Would like a referral to a different pain management provider. Referred her to [facility] pain management. Provided phone number [...] Verbalizes understanding and is in agreement. Normal [facility] Erroneous Encounteron 2023 Erroneous Encounter [id number] Elda Givens 1960 F Date Provider Department Center 07/19/2023 148CURT, [facility] SURG Second Fl Family History Problem Relation Age of Onset Colon cancer Mother Diabetic kidney disease Father Factor V Leiden deficiency Other Comments: siblings and grandchildren Family Status - Relation Status Age at Mother Father Other Reason for Visit and Comments: Error (VOID this visit) [77] Normal [facility] Telephoneon 07-19-2023 Telephone [id number] Elda Givens 1960 F Date Provider Department Center 07/19/2023 148-NICK, [facility] SURG Second Fl Family History Problem Relation Age of Onset Colon cancer Mother Diabetic kidney disease Father Factor V Leiden deficiency Other Comments: siblings and grandchildren Family Status - Relation Status Age at Mother Father Other Normal [facility] Consulton 07-18-2023 Consult [id number] Elda Givens 1960 F Date Provider Department Center 07/18/2023 Alex-JORDI ROMERO [facility] SURG Second Fl Family History Problem Relation Age of Onset Colon cancer Mother Diabetic kidney disease Father Factor V Leiden deficiency Other Comments: siblings and grandchildren Family Status - Relation Status Age at Mother Father Other Level of Service:90312 PA OFFICE/OUTPATIENT NEW MODERATE MDM 45 MINUTES Reason for Visit and Comments: Consult [484] - lumbosacral spondylosis without myelopathy-will bring disk Normal [facility] MR LUMBAR SPINE WO CONTRASTo n 07-12-2023 [...] Vazquez Not Available Office Visit (Vascular Surge ry)on 10-19-2022 Follow-up visit Diagnoses/Problems Assessed Stenosis of right carotid artery without infarction (433.10) (I65.21) Carotid occlusion, left (433.10) (I65.22) Patient Discussion/Summary By signing my name below, I, Ely Johnson, attest that this documentation has been prepared under the direction and in the presence of Dr. Jack Barbosa. All medical record entries made by the Mansiibevens were at my direction and personally dictated [...] TabletTAKE 1 TABLET DAILY DIRECTED. Multivital TABS Warren 3 CAPS Synthroid 125 MCG Oral TabletTAKE 1 TABLET DAILY DIRECTED. Vitals Vital Signs Recorded: 19Oct2022 10:50AM Heart Rate78 Zjylqfqu765 Lqiwqmxkl46 Height5 ft 4 in Gqbigl069 lb BMI Rkdxsqbvqf02.14 kg/m2 BSA Calculated2.07 Tobacco Useb) No Falls Screening (Age 18+)a) No falls within the last year O2 Qwmrbekztr76 Physical Exam Constitutional - No acute distress, well appearing and well nourished. Psychiatric - Orientation to person, place, and time. Appropriate mood and affect Neurologic - Cranial nerves intact, motor strength was normal, sensation (more content not included)... Normal [facility] Tobacco Screening.on 023 Fall risk assessment a) No falls within the last year [facility] [facility] Work Phone: Tobacco use status [facility] b) No [facility] [facility] Work Phone: Blood Pressure Cuff Sizeon 0 07-28-2021 Fall risk assessment a) No falls within the last year [facility] [facility] Work Phone: Tobacco use status [facility] b) No [facility] [facility] Work Phone: Blood Pressure Cuff Size Adult [facility] [facility] Work Phone: Screening Mammogram, [place] shaquille 07-19-2021 Screening Mammogram, Bilateral EXAMINATION: Screening [...] VERY IMPORTANT TO YOUR HEALTH. THE CURRENT [employer] GUIDELINES RECOMMEND ANNUAL MAMMOGRAPHY BEGINNING AT AGE 40. THIS FACILITY UTILIZES A REMINDER SYSTEM TO ENSURE ALL PATIENTS RECEIVE A REMINDER NOTIFICATION AT THE APPROPRIATE TIME BASED ON THE RECOMMENDATIONS OF THIS EXAM. 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 ACCREDITED BY THE [facility] AND FDA. Report reported and signed by Blanche Marion on 07/24/2021 1115 Normal [facility] VAS LAB Carotid Artery Dupl ex Ultrasounon 07-14-2021 [facility] Carotid Artery Duplex [place] [facility] [address] [facility] [address] Vascular Lab Report Carotid Artery Duplex Ultrasound Patient Name: CAROLYNN GIVENS Reading Physician: [id number] Barbosa MD Study Date: 07/14/2021 Referring Physician: Rima BARBOSA MRN/PID: [id number] PCP: Accession/Order#: [id number] CC Report to: Date of : 1960 Technologist: Carolynn Olvear RDMS, RVT Gender: F Technologist 2: Admission Status: Outpatient Location Performed: [facility] Diagnosis/ICD: I65.22-Occlusion and stenosis of left carotid artery Procedure/CPT: 71018 Cerebrovascular Carotid Duplex scan complete-37343 Pertinent History: HTN, CAD and Carotid surgery. [...] cm/s Right Left ICA/CCA Ratio 1.5 0.9 [id number] Jack Barbosa MD Final Normal [facility] XR Spine Lumbar 4+ Views*on 06-26-2021 XR [...] by Elvis Cochran on 06/26/2021 1617 Normal [facility] Wardrobe Consultant CAROTID DUPLEX SCAN ()on CAROTID DUPLEX SCAN () CAROLYNN GIVENS [id number] 1960 12/11/2017 57y [id number] Sugey [id number] NaN F op Outpatient CARDIOVASCULAR LAB Referring: Rizwana Salazar J. Reading: Rizwana Salazar MD, RPVI, FACS RZ Procedure Info: 26131 - Duplex scan of extracranial arteries; complete [...] vertebral artery was patent with antegrade flow. [facility] CAROLYNN GIVENS Ortiz [id number] [address] [place] [address] [id number] 60 Rizwana Salazar MD CAROTID DUPLEX SCAN [...] cm/sec Vertebral 22.8 cm/sec Rizwana Salazar MD, YASMIN, [facility]12/11/2017 14:13:45 [facility] GIVENSCAROLYNN CISNEROS [id number] [address] [address] [id number] 60 Rizwana Salazar MD CAROTID DUPLEX SCAN Normal [facility] CAROTID DUPLEX SCAN (HL)on 05-29-2017 CAROTID DUPLEX SCAN (HL) CAROLYNN GIVENS [id number] 1960 05/29/2017 57y [id number] NaN [id number] NaN F Outpatient CARDIOVASCULAR LAB Referring: Rizwana Salazar J. Reading: Rizwana Salazar MD, [facility] Procedure Info: 70669 - Duplex scan of extracranial arteries; complete [...] external carotid artery was patent, within normal [facility] CAROLYNN GIVENS [id number] [place] [address] [id number] 60 Rizwana Salazar MD CAROTID DUPLEX SCAN [...] Vertebral 21.1 cm/sec Rizwana Salazar MD, RPVI, [facility]05/29/2017 15:11:15 [facility] CAROLYNN GIVENS [id number] [address] [address] [id number] 60 Rizwana Salazar MD CAROTID DUPLEX SCAN Normal [facility] Vital Signs Date Time Vital Sign Value Performing Clinician Facility 06-03-2024 11:34-0400 Body height 165.1 cm Brooks Lake Forest DO Work Phone: [facility] 06-03-2024 11:34-0400 Body mass index (BMI) [Ratio] 33.28 kg/m2 Brooks Lake Forest DO Work Phone: [facility] 06-03-2024 11:34-0400 Body weight 90.72 kg Brooks [place] DO Work Phone: [facility] 06-03-2024 11:34-0400 Diastolic blood pressure 76 mm[Hg] Brooks [place] DO Work Phone: [facility] 06-03-2024 11:34-0400 Systolic blood pressure 130 mm[Hg] Brooks [place] DO Work Phone: [facility] 12-11-2023 13:43-0400 Body height 165.1 cm Pac 1 Other Phone: [facility] 12-11-2023 13:43-0400 Body mass index (BMI) [Ratio] 38.15 kg/m2 Pacc 1 Other Phone: [facility] 12-11-2023 13:43-0400 Body temperature 97.3 [degF] Pacc 1 Other Phone: [facility] 12-11-2023 13:43-0400 Body weight 104 kg Pacc 1 Other Phone: [facility] 12-11-2023 13:43-0400 Diastolic blood pressure 84 mm[Hg] Pacc 1 Other Phone: [facility] 12-11-2023 13:43-0400 Heart rate 77 /min Pacc 1 Other Phone: [facility] 12-11-2023 13:43-0400 Respiratory rate 18 /min Pacc 1 Other Phone: [facility] 12-11-2023 13:43-0400 SaO2% (BldA) [Mass fraction] 97 % Pacc 1 Other Phone: [facility] 12-11-2023 13:43-0400 Systolic blood pressure 140 mm[Hg] Pacc 1 Other Phone: [facility] 11-13-2023 11:54-0400 Body height 165.1 cm Brooks Lake Forest DO Work Phone: [facility] 11-13-2023 11:54-0400 Body mass index (BMI) [Ratio] 33.28 kg/m2 Brooks Lake Forest DO Work Phone: [facility] 11-13-2023 11:54-0400 Body temperature 96.6 [degF] Brooks [place] Forest DO Work Phone: [facility] 11-13-2023 11:54-0400 Body weight 90.72 kg Brooks [place] DO Work Phone: [facility] 11-13-2023 11:54-0400 Diastolic blood pressure 70 mm[Hg] Brooks Lake Forest DO Work Phone: [facility] 11-13-2023 11:54-0400 Heart rate 71 /min Brooks [place] DO Work Phone: [facility] 11-13-2023 11:54-0400 SaO2% (BldA) [Mass fraction] 96 % Brooks Lake Forest DO Work Phone: [facility] 11-13-2023 11:54-0400 Systolic blood pressure 126 mm[Hg] Brooks Lake Forest DO Work Phone: [facility] 10-24-2023 07:48-0400 Body height 165.1 cm Montana Pocos DO Work Phone: [facility] 10-24-2023 07:48-0400 Body mass index (BMI) [Ratio] 33.28 kg/m2 Montana Pocos DO Work Phone: [facility] 10-24-2023 07:48-0400 Body weight 90.72 kg Montana Pocos DO Work Phone: [facility] 10-19-2022 10:50-0400 Body height 162.56 cm Dory Wells Work Phone: [facility]Klknswyapc[facility]Oz[facility]abid [facility] Work Phone: 10-19-2022 10:50-0400 Body mass index (BMI) [Ratio] 39.14 kg/m2 Dory Wells Work Phone: DH-Dbsfqeugaz-Psqmegj e 320 Work Phone: 10-19-2022 10:50-0400 Body surface area Derived from formula 2.07 m2 Dory Wells Work Phone: TG-Kmzvchbyxt-Xgkxkja e 320 Work Phone: 10-19-2022 10:50-0400 Body weight 103.42 kg Dory Wells Work Phone: HP-Absbtehifd-Xxjhyib e 320 Work Phone: 10-19-2022 10:50-0400 Diastolic blood pressure 80 mm[Hg] Dory Wells Work Phone: VV-Akduiudpnt-Mkwspfp e 320 Work Phone: 10-19-2022 10:50-0400 Heart rate 78 /min Dory Wells Work Phone: YR-Txkdmfflys-Fukkkvl e 320 Work Phone: 10-19-2022 10:50-0400 SaO2% (BldA) [Mass fraction] 96 % Dory Wells Work Phone: NX-Wmnqmfojrm-Styfowp e 320 Work Phone: 10-19-2022 10:50-0400 Systolic blood pressure 132 mm[Hg] Dory Wells Work Phone: EO-Ubjkpwfisx-Iylspci e 320 Work Phone: 05-14-2022 13:00-0400 Diastolic blood pressure 70 mm[Hg] Jatin Saldana Other [employer] Other 05-14-2022 13:00-0400 SaO2% (BldA) [Mass fraction] 98 % Jatin Saldana Other [employer] Other 05-14-2022 13:00-0400 Systolic blood pressure 120 mm[Hg] Jatin Saldana Other [employer] Other 05-09-2022 14:30-0400 Body weight 102.06 kg Iza Blades Other [employer] Other 05-09-2022 14:30-0400 Diastolic blood pressure 100 mm[Hg] Iza Blades Other [employer] Other 05-09-2022 14:30-0400 Systolic blood pressure 140 mm[Hg] Iza Blades Other [employer] Other 04-24-2022 09:15-0500 Diastolic blood pressure 84 mm[Hg] Jatin Shana Other [employer] Other 04-24-2022 09:15-0500 SaO2% (BldA) [Mass fraction] 98 % Jatin Shana Other [employer] Other 04-24-2022 09:15-0500 Systolic blood pressure 130 mm[Hg] Jatin Shana Other [employer] Other 03-26-2022 12:45-0500 Diastolic blood pressure 70 mm[Hg] Jatin Shana Other [employer] Other 03-26-2022 12:45-0500 SaO2% (BldA) [Mass fraction] 99 % Jatin Saldana Other [employer] Other 03-26-2022 12:45-0500 Systolic blood pressure 118 mm[Hg] Jatin Shana Other [employer] Other 03-07-2022 16:00-0500 Body weight 102.6 kg Jatin Saldana Other [employer] Other 03-07-2022 16:00-0500 Diastolic blood pressure 84 mm[Hg] Jatin Shana Other [employer] Other 03-07-2022 16:00-0500 SaO2% (BldA) [Mass fraction] 95 % Jatin Shana Other [employer] Other 03-07-2022 16:00-0500 Systolic blood pressure 130 mm[Hg] Jatin Shana Other [employer] Other 07-28-2021 11:14-0400 Body height 162.56 cm Dory Wells Work Phone: LP-Dyqywmytay-Uddlejn e 320 Work Phone: 07-28-2021 11:14-0400 Body mass index (BMI) [Ratio] 35.02 kg/m2 Dory Wells Work Phone: XF-Jtpwqihoyi-Mrdpuvf e 320 Work Phone: 07-28-2021 11:14-0400 Body surface area Derived from formula 1.97 m2 Dory Wells Work Phone: QX-Vdyousmwwp-Dicnsup e 320 Work Phone: 07-28-2021 11:14-0400 Body weight 92.53 kg Dory Wells Work Phone: EP-Vobfacoycz-Rkekugx e 320 Work Phone: 07-28-2021 11:14-0400 Diastolic blood pressure 74 mm[Hg] Dory Wells Work Phone: GC-Iwdttpvdkl-Dymoosf e 320 Work Phone: 07-28-2021 11:14-0400 Heart rate 82 /min Dory Wells Work Phone: TG-Ahqirvwrnm-Oxssolp e 320 Work Phone: 07-28-2021 11:14-0400 SaO2% (BldA) [Mass fraction] 95 % Dory Wells Work Phone: BW-Rfrrgugrod-Msflfqa e 320 Work Phone: 07-28-2021 11:14-0400 Systolic blood pressure 150 mm[Hg] Dory Wells Work Phone: HU-Rfrnhqvcrb-Djokboc e 320 Work Phone: 06-22-2020 13:49-0400 Body height 160.02 cm Dory Wells Work Phone: [employer] [facility] Work Phone: 06-22-2020 13:49-0400 Body mass index (BMI) [Ratio] 38.62 kg/m2 Dory Wells Work Phone: [employer] [facility] Work Phone: 06-22-2020 13:49-0400 Body surface area Derived from formula 2.01 m2 Dory Wells Work Phone: [employer] [facility] Work Phone: 06-22-2020 13:49-0400 Body weight 98.88 kg Dory Wells Work Phone: [facility] [facility] Work Phone: 06-22-2020 13:49-0400 Diastolic blood pressure 82 mm[Hg] Dory Wells Work Phone: [facility] [facility] Work Phone: 06-22-2020 13:49-0400 Heart rate 65 /min Dory Wells Work Phone: [facility] [facility] Work Phone: 06-22-2020 13:49-0400 SaO2% (BldA) [Mass fraction] 98 % Dory Wells Work Phone: [facility] Work Phone: 06-22-2020 13:49-0400 Systolic blood pressure 132 mm[Hg] Dory Wells Work Phone: [facility] [employer] [facility] Work Phone: Encounters Encounter Date Encounter Type Care Provider Facility Start: 06-26-2024 End: 06-26-2024 Refill Brooks L Lake Forest DO Work Phone: [facility] Comment on above: Psychophysiological insomnia Start: 06-15-2024 End: 06-15-2024 ambulatory Heaven Rae MD Facility:[facility] Start: 06-11-2024 End: 06-11-2024 Patient encounter procedure Misa Moe MD Work Phone: [facility] Comment on above: Actinic keratosis (P rimary Dx); Keloid Start: 06-11-2024 End: 06-11-2024 ambulatory MISA MOE Not Available Start: 06-11-2024 End: 06-11-2024 Bamboo flowsheet Misa Moe MD Work Phone: [facility] Start: 06-11-2024 End: 06-11-2024 Bamboo flowsheet Misa Moe MD Work Phone: [facility] Start: 06-03-2024 End: 06-03-2024 Bamboo flowsheet Brooks L Lake Forest DO Work Phone: [facility] Start: 06-03-2024 End: 06-03-2024 Bamboo flowsheet Brooks L [place] DO Work Phone: [facility] Start: 06-03-2024 End: 06-03-2024 Patient encounter status Brooks L Lake [place] DO Work Phone: [facility] Start: 06-03-2024 End: 06-03-2024 Periodic preventive med est patient 40-64yrs Brooks L Lake [place] DO Work Phone: [facility] Comment on above: Wellness examination (Primary Dx); Type 2 diabetes mellitus without complication, without long-term current use of insulin; Benign hypertension (CMS/HCC); Other specified hypothyroidism; Occlusion and stenosis of left carotid artery; Neuralgia and neuritis, unspecified; Mixed hyperlipidemia (CMS/HCC); Herpes Start: 06-03-2024 End: 06-03-2024 ambulatory BROOKS L CUTLER Not Available Start: 06-01-2024 End: 06-01-2024 ambulatory Heaven Rae MD Facility: [facility] Start: 04-30-2024 End: 04-30-2024 ambulatory BOLA AKHTAR Not Available Start: 04-30-2024 End: 04-30-2024 Patient encounter procedure Bola Akhtar DO Work Phone: [facility] Comment on above: Screening for diabet es mellitus; Screening for lipoid disorders Start: 04-22-2024 End: 04-23-2024 Refill Brooks L [place] DO Work Phone: [facility] Comment on above: Chronic pain syndrom e; Psychophysiological insomnia Start: 03-27-2024 End: 03-27-2024 Refill Brooks L [place] DO Work Phone: [facility] Comment on above: Psychophysiological insomnia Start: 03-21-2024 End: 03-23-2024 Refill Brooks L [place] DO Work Phone: [facility] Comment on above: Other specified hypo thyroidism (CMS/HCC) Start: 03-20-2024 End: 03-20-2024 Bamboo flowsheet Jimbo Rodriguez PT Work Phone: [facility] Start: 03-20-2024 End: 03-20-2024 Bamboo flowsheet Jimbo Rodriguez PT Work Phone: [facility] Start: 03-20-2024 End: 03-20-2024 ambulatory Jimbo Rodriguez PT Work Phone: [facility] Comment on above: Acute pain of right knee (Primary Dx); S/P total knee arthroplasty, right Start: 03-02-2024 End: 03-02-2024 Bamboo flowsheet Jimbo Rodriguez PT Work Phone: [facility] Start: 03-02-2024 End: 03-02-2024 Bamboo flowsheet Jimbo Rodriguez PT Work Phone: [facility] Start: 03-02-2024 End: 03-02-2024 ambulatory Jimbo Lizett Zapatadlach PT Work Phone: [facility] Comment on above: Acute pain of right knee (Primary Dx); S/P total knee arthroplasty, right Knee pain, unspecifi ed chronicity, unspecified laterality (Primary Dx) Start: 02-28-2024 End: 02-28-2024 Bamboo flowsheet Jimbo D Gundlach PT Work Phone: [facility] Start: 02-28-2024 End: 02-28-2024 Bamboo flowsheet Jimbo D Gundlach PT Work Phone: [facility] Start: 02-28-2024 End: 02-28-2024 ambulatory Jimbo Lizett Zapatadlach PT Work Phone: [facility] Comment on above: Acute pain of right knee (Primary Dx); S/P total knee arthroplasty, right Start: 02-26-2024 End: 02-26-2024 Bamboo flowsheet Jimbo Lizett Gundlach PT Work Phone: [facility] Start: 02-26-2024 End: 02-26-2024 Bamboo flowsheet Jimbo D Gundlach PT Work Phone: [facility] Start: 02-26-2024 End: 02-26-2024 ambulatory Jimbo Zapatadlach PT Work Phone: [facility] Comment on above: Acute pain of right knee (Primary Dx); S/P total knee arthroplasty, right Start: 02-25-2024 End: 02-25-2024 Refparker Rosen PA Work Phone: [facility] 230 Comment on above: Mixed hyperlipidemia (CMS/HCC); Neuralgia and neuritis, unspecified Chronic pain syndrom e; Psychophysiological insomnia Start: 02-21-2024 End: 02-21-2024 Bamboo flowsheet Jimbo Phoenix Gundlach PT Work Phone: [facility] Start: 02-21-2024 End: 02-21-2024 Bamboo flowsheet Jimbo D Gundlach PT Work Phone: [facility] Start: 02-21-2024 End: 02-21-2024 ambulatory Jimbo Zapatadlach PT Work Phone: [facility] Comment on above: Acute pain of right knee (Primary Dx); S/P total knee arthroplasty, right Start: 02-18-2024 End: 02-18-2024 Bamboo flowsheet Jimbo Zapatadlach PT Work Phone: [facility] Start: 02-18-2024 End: 02-18-2024 Bamboo flowsheet Jimbo Zapatadlach PT Work Phone: [facility] Start: 02-18-2024 End: 02-18-2024 ambulatory Jimbo Zapatadlach PT Work Phone: [facility] Comment on above: Acute pain of right knee (Primary Dx); S/P total knee arthroplasty, right Start: 02-17-2024 End: 02-17-2024 Bamboo flowsheet Jimbo Zapatadlach PT Work Phone: [facility] Start: 02-17-2024 End: 02-17-2024 Bamboo flowsheet Jimbo Zapatadlach PT Work Phone: [facility] Start: 02-17-2024 End: 02-17-2024 ambulatory Jimbo Islasach PT Work Phone: [facility] Comment on above: Acute pain of right knee (Primary Dx); S/P total knee arthroplasty, right Start: 02-14-2024 End: 02-14-2024 Bamboo flowsheet Jazzy Depoy 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 Work Phone: [facility] Start: 02-14-2024 End: 02-14-2024 Bamboo flowsheet Jazzy Depoy 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 Work Phone: [facility] Start: 02-14-2024 End: 02-14-2024 ambulatory Jazzy Depoy 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 Work Phone: [facility] Comment on above: Acute pain of right knee (Primary Dx); S/P total knee arthroplasty, right Start: 02-10-2024 End: 02-10-2024 Bamboo flowsheet Jimbo D Gundlach PT Work Phone: [facility] Start: 02-10-2024 End: 02-10-2024 Bamboo flowsheet Jimbo D Gundlach PT Work Phone: [facility] Start: 02-10-2024 End: 02-10-2024 ambulatory Jimbo D Gundlach PT Work Phone: [facility] Comment on above: Acute pain of right knee (Primary Dx); S/P total knee arthroplasty, right Start: 02-07-2024 End: 02-07-2024 Bamboo flowsheet Jimbo D Gundlach PT Work Phone: [facility] Start: 02-07-2024 End: 02-07-2024 Bamboo flowsheet Jimbo D Gundlach PT Work Phone: [facility] Start: 02-07-2024 End: 02-07-2024 ambulatory Jimbo Zapatadlach PT Work Phone: [facility] Comment on above: Acute pain of right knee (Primary Dx); S/P total knee arthroplasty, right Start: 02-04-2024 End: 02-04-2024 Bamboo flowsheet Jimbo D Gundlach PT Work Phone: [facility] Start: 02-04-2024 End: 02-04-2024 Bamboo flowsheet Jimbo D Gundlach PT Work Phone: [facility] Start: 02-04-2024 End: 02-04-2024 ambulatory Jimbo D Gundlach PT Work Phone: [facility] Comment on above: Acute pain of right knee (Primary Dx); S/P total knee arthroplasty, right Start: 02-03-2024 End: 02-03-2024 Bamboo flowsheet Misa Moe MD Work Phone: [facility] Start: 02-03-2024 End: 02-03-2024 Bamboo flowsheet Misa Moe MD Work Phone: [facility] Start: 02-03-2024 End: 02-03-2024 Office outpatient visit 15 minutes Misa Moe MD Work Phone: [facility] Comment on above: Melanocytic nevus of trunk (Primary Dx); Lentigines; Seborrheic keratosis; History of nevus excision; Neoplasm of unspecified behavior of bone, soft tissue, and skin Start: 02-03-2024 End: 02-03-2024 ambulatory MISA MOE Not Available Start: 01-31-2024 End: 01-31-2024 Bamboo flowsheet Jimbo Rodriguez PT Work Phone: [facility] Start: 01-31-2024 End: 01-31-2024 Bamboo flowsheet Jimbo Rodriguez PT Work Phone: [facility] Start: 01-31-2024 End: 01-31-2024 ambulatory Jimbo Rodriguez PT Work Phone: [facility] Comment on above: Acute pain of right knee (Primary Dx); S/P total knee arthroplasty, right Start: 01-28-2024 End: 01-28-2024 Bamboo flowsheet Jimbo Rodriguez PT Work Phone: [facility] Start: 01-28-2024 End: 01-28-2024 Bamboo flowsheet Jimbo Islasach PT Work Phone: [facility] Start: 01-28-2024 End: 01-28-2024 ambulatory Jimbo Rodriguez PT Work Phone: [facility] Comment on above: Acute pain of right knee (Primary Dx); S/P total knee arthroplasty, right Start: 01-24-2024 End: 01-24-2024 Bamboo flowsheet Jimbo D Gundlach PT Work Phone: [facility] Start: 01-24-2024 End: 01-24-2024 Bamboo flowsheet Jimbo D Gundlach PT Work Phone: [facility] Start: 01-24-2024 End: 01-24-2024 ambulatory Jimbo D Gundlach PT Work Phone: [facility] Comment on above: Acute pain of right knee (Primary Dx); S/P total knee arthroplasty, right Start: 01-22-2024 End: 01-22-2024 Refill Brooks Calixto DO Work Phone: [facility] 230 Comment on above: Psychophysiological insomnia Start: 01-21-2024 End: 01-21-2024 ambulatory Jimbo D Gundlach PT Work Phone: [facility] Comment on above: Acute pain of right knee (Primary Dx); S/P total knee arthroplasty, right Start: 01-14-2024 End: 01-14-2024 Bamboo flowsheet Jimbo D Gundlach PT Work Phone: [facility] Start: 01-14-2024 End: 01-14-2024 Bamboo flowsheet Jimbo D Gundlach PT Work Phone: [facility] Start: 01-14-2024 End: 01-14-2024 ambulatory Jimbo D Gundlach PT Work Phone: [facility] Comment on above: Acute pain of right knee (Primary Dx); S/P total knee arthroplasty, right Start: 01-08-2024 End: 01-08-2024 Bamboo flowsheet Jimbo D Gundlach PT Work Phone: [facility] Start: 01-08-2024 End: 01-08-2024 Bamboo flowsheet Jimbo D Gundlach PT Work Phone: [facility] Start: 01-08-2024 End: 01-08-2024 ambulatory Jimbo D Gundlach PT Work Phone: [facility] Comment on above: Acute pain of right knee (Primary Dx); S/P total knee arthroplasty, right Start: 01-06-2024 End: 01-06-2024 Bamboo flowsheet Jimbo Rodriguez PT Work Phone: [facility] Start: 01-06-2024 End: 01-06-2024 Bamboo flowsheet Jimbo Zapatabriaach PT Work Phone: [facility] Start: 01-06-2024 End: 01-06-2024 ambulatory Jimbo Zapatabriaissa PT Work Phone: [facility] Comment on above: Acute pain of right knee (Primary Dx); S/P total knee arthroplasty, right Start: 01-02-2024 End: 01-02-2024 Clinisync Result Encounter Generic External Data Provider [facility] External Department Unsolicited Start: 01-02-2024 End: 01-02-2024 Clinisync Result Encounter Generic External Data Provider [facility] External Department Unsolicited Start: 01-01-2024 End: 01-02-2024 ambulatory JORGE L HATCH Facility:[facility] Start: 12-29-2023 End: 12-30-2023 Refill Brooks L [place] DO Work Phone: [facility] 230 Comment on above: Psychophysiological insomnia Start: 12-20-2023 End: 12-20-2023 Patient encounter procedure DO Brooks [place] Work Phone: [facility] Work Phone: Start: 12-20-2023 End: 12-20-2023 ambulatory DO Brooks L [place] Work Phone: [facility] Work Phone: Start: 12-12-2023 End: 12-12-2023 ambulatory BROOKS L CUTLER Not Available Start: 12-11-2023 End: 12-11-2023 ambulatory PACHECO VILLELA Facility:[facility] Start: 12-11-2023 Encounter for other preprocedural examination JORGE L HATCH [facility] Start: 12-11-2023 End: 12-11-2023 Admission to [...] examination done [address]acc [address] Other Phone: [facility] Work Phone: Start: 12-11-2023 End: 12-11-2023 Clinisync Result Encounter Generic External Data Provider [facility] External Department Unsolicited Start: 12-11-2023 End: 12-11-2023 Clinisync Result Encounter Generic External Data Provider [facility] External Department Unsolicited Start: 12-11-2023 End: 12-11-2023 Telephone encounter Brooks Calixto DO Work Phone: [facility] 230 Start: 12-11-2023 End: 12-11-2023 ambulatory JORGE L HATCH Facility:[facility] Start: 12-09-2023 End: 12-09-2023 Refill Brooks Calixto DO Work Phone: [facility] 230 Comment on above: Type 2 diabetes harman itus without complication, without long- term current use of insulin (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); Left carotid artery occlusion Start: 11-13-2023 End: 11-13-2023 Bamboo flowsheet Brooks L [place] DO Work Phone: [facility] 230 Start: 11-13-2023 End: 11-13-2023 Bamboo flowsheet Brooks L [place] DO Work Phone: [facility] 230 Start: 11-13-2023 End: 11-13-2023 ambulatory BROOKS L CUTLER Not Available Start: 11-13-2023 End: 11-13-2023 Patient encounter procedure Brooks L [place] DO Work Phone: [facility] 230 Comment on above: Chronic pain syndrom e (Primary Dx); Bilateral primary osteoarthritis of knee; Type 2 diabetes mellitus without complication, without long-term current use of insulin ([facility]); Type 2 diabetes mellitus with diabetic cataract ([facility]); 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[facility]); Sacroiliitis, not elsewhere classified ([facility]) Start: 10-28-2023 End: 10-28-2023 Refparker Rosen PA Work Phone: [facility] 230 Comment on above: Psychophysiological insomnia Start: 10-24-2023 End: 10-24-2023 ambulatory MONTANA KNAPP Not Available Start: 10-24-2023 End: 10-24-2023 Patient encounter procedure Montana Knapp DO Work Phone: [facility] Comment on above: Primary osteoarthrit is of both knees (Primary Dx) Start: 10-23-2023 End: 10-23-2023 Bamboo flowsheet Brooks L [place] DO Work Phone: [facility] 230 Start: 10-23-2023 End: 10-23-2023 Bamboo flowsheet Brooks L [place] DO Work Phone: [facility] Start: 10-23-2023 End: 10-23-2023 Patient encounter procedure Brooks L [place] DO Work Phone: [facility] 230 Comment on above: C7 radiculopathy (Pr imary Dx); Somatic dysfunction of lumbar region; Somatic dysfunction of pelvis region; Somatic dysfunction of cervical region; Somatic dysfunction of thoracic region Start: 10-23-2023 End: 10-23-2023 ambulatory BROOKS L MARILY Not Available Start: 10-22-2023 End: 10-22-2023 Bamboo flowsheet Tracey Valenzuela DO Work Phone: [facility] Start: 10-22-2023 End: 10-22-2023 Bamboo flowsheet Tracey Valenzuela DO Work Phone: [facility] Start: 10-22-2023 End: 10-22-2023 Office outpatient new 30 minutes Tracey Valenzuela DO Work Phone: [facility] Comment on above: Right knee pain, uns pecified chronicity (Primary Dx); Primary osteoarthritis of right knee; Primary osteoarthritis of left knee Start: 10-22-2023 End: 10-22-2023 ambulatory TRACEY VALENZUELA Not Available Start: 09-25-2023 End: 09-25-2023 ambulatory [facility] Start: 07-23-2023 End: 07-23-2023 ambulatory BROOKS L MARILY Not Available Start: 07-18-2023 End: 07-18-[address] [facility] Start: 07-18-2023 End: 07-18-[address] [facility] Start: 07-12-2023 End: 07-12-2023 ambulatory CONG ROSEN Not Available Start: 03-31-2023 Refill Cong Rosen P A Work Phone: [facility] 230 Comment on above: Neuralgia and neurit is, unspecified Start: 10-19-2022 Office outpatient vi sit 15 minutes Dory Wells Work Phone: [facility] Work Phone: Start: 10-19-2022 Patient encounter procedure Monroe Wells Work Phone: [place] [phone] Work Phone: Start: 10-19-2022 ambulatory Jack Barbosa MD Fac lity:[id number] Start: 05-22-2022 End: 05-22-2022 ambulatory Iza Blades Other [employer] Other Start: 05-22-2022 Telephone encounter Iza Blades [facility] Neuro[facility] Start: 05-17-2022 End: 05-17-2022 ambulatory Jatin Sahna Other [facility] to be Other Start: 05-17-2022 Telephone encounter Jatin Shana [facility] [place] Start: 05-14-2022 End: 05-14-2022 ambulatory Jatin Shana Other [employer] Other Start: 05-14-2022 Office outpatient vi sit 25 minutes Jatin Shana [facility] Start: 05-09-2022 End: 05-09-2022 ambulatory Iza Blades Other [employer] Other Start: 05-09-2022 Office outpatient ne w 45 minutes Iza Blades [facility] Neuro[facility] Start: 05-01-2022 (PROC) PROCEDURE Jatincarlos Saldana [facility] Start: 05-01-2022 End: 05-01-2022 ambulatory Jatin Shana Other [employer] Other Start: 04-24-2022 End: 04-24-2022 ambulatory Jatin Shana Other [employer] Other Start: 04-24-2022 Office outpatient vi sit 25 minutes Jatin Shana [facility] Start: 04-03-2022 (PROC) PROCEDURE Jatin Shana [facility] Start: 04-03-2022 End: 04-03-2022 ambulatory Jatin Shana Other [employer] Other Start: 03-26-2022 End: 03-26-2022 ambulatory Jatin Saldana Other [employer] Other Start: 03-26-2022 Office outpatient vi sit 25 minutes Jatin Saldana [facility] Start: 03-13-2022 (PROC) PROCEDURE Jatin Saldana [facility] Start: 03-13-2022 End: 03-13-2022 ambulatory Jatin Saldana Other [employer] Other Start: 03-07-2022 End: 03-07-2022 ambulatory Jatin Saldana Other [employer] Other Start: 03-07-2022 FQHC visit new patient Jatin Saldana [facility] Start: 07-28-2021 Office outpatient vi sit 15 minutes Dory Wells Work Phone: [facility] Work Phone: Start: 07-28-2021 Patient encounter procedure Je larisa Wells Work Phone: [facility] Work Phone: Start: 02-01-2021 Chart Update Dory Wlels Work Phone: [facility] Work Phone: Start: 07-19-2020 Rx Renewal Dory Wells Work Phone: [facility] Work Phone: Start: 05-21-2018 Patient encounter procedure Ashley Salazar Facility:[facility] Start: 12-11-2017 Patient encounter procedure Ashley Salazar Facility:[facility] Start: 05-29-2017 Patient encounter procedure Ashley Salazar Facility:[facility] Patient encounter status Dory Wells Work Phone: [facility] Work Phone: Procedures Date Procedure Procedure Detail Performing Clinician Start: 06-11-2024 NINA [facility] INTRALESION AL KENALOG INJECTION Misa Moe MD Work Phone: Start: 06-11-2024 CRYOTHERAPY SKIN LESION Misa Moe MD Work Phone: Start: 06-03-2024 Hemoglobin glycosylated a1c Brooks Calixto DO Work Phone: Start: 04-30-2024 Lipid panel Bola Akhtar DO [...] Speci men Type: BLOOD SPECIMEN Ordering Facility: [facility] Address: [address] [place] [address] Performed By: #### T [id number] #### [facility] CLIA [id number] [address] [place] [address] [place] Start: 10-24-2023 Arthrocentesis aspir &/inj major jt/bursa w/o us Montana Knapp DO Work Phone: Start: 10-22-2023 Arthrocentesis aspir &/inj major jt/bursa w/o us Tracey Valenzuela DO Work Phone: Start: 10-22-2023 Radiologic examinati on knee 1/2 views Tracey A Nicolas DO Work Phone: Start: 09-17-2022 Mammography Cong [...] RSV Vaccine (1 - 1-dose 75+ series) [facility] Start: 12-10-2026 Diabetes Screening Diabetes Screening [facility] Start: 07-22-2026 Diabetes Screening Diabetes Screening [facility] Start: 02-18-2025 Glaucoma screening Diabetes: Retinopathy Screening [facility] Start: 02-02-2025 End: 02-02-2025 Patient encounter procedure 02/02/2025 8:45 AM EST Office Visit [facility] [address] [place] [address] Misa Moe MD [address] [place] [address] [facility] Start: 12-11-2024 Screening for malignant neoplasm of breast Mammogram [facility] Start: 10-19-2024 Influenza vaccination Influenza Vaccine (Season Ended) [facility] Start: 09-13-2024 Screening for malignant neoplasm of colon [facility] Start: 09-02-2024 Hemoglobin A1c measurement Diabetes: Hemoglobin A1C [facility] Start: 07-22-2024 Urine screening for protein Diabetes: Urine Protein Screening [facility] Start: 07-14-2024 End: 07-14-2024 Patient encounter procedure 07/14/2024 8:30 AM EDT Office Visit [facility] [address] [place] [address] Misa Moe MD [address] [place], [place] [id number] [facility] Start: 06-11-2024 End: 06-11-2024 Patient encounter procedure 06/11/2024 3:20 PM EDT Office Visit [facility] [address] [place] [address] Misa Moe MD [address] [place] [address] [facility] Comment on above: Arrived Start: 06-03-2024 End: 06-03-2025 Microalbumin/Creatinine panel in random Urine Microalbumin / creatinine, urine ratio Lab Routine Type 2 diabetes mellitus without complication, without long-term current use of insulin Expected: 06/03/2024 (Approximate), Expires: 06/03/2025 [facility] Work Phone: Comment on above: Expected: 06/03/2024 (Approximate), Expi res: 06/03/2025 Start: 06-03-2024 End: 06-03-2024 Patient encounter procedure 06/03/2024 11:40 AM EDT Office [address] [facility] [address] [place] [address] Brooks Calixto DO [address] [place], [place] [id number] [facility]rived [facility] 230 Comment on above: Arrived Start: 05-14-2024 Urine screening for protein Diabetes: Urine Protein Screening [facility] Start: 03-23-2024 End: 03-23-2025 Thyrotropin [Units/volume] in Serum or Plasma Tsh+free t4 Lab Routine Other specified hypothyroidism (CMS/HCC) Expected: 03/23/2024 (Approximate), Expires: 03/23/2025 [facility] Work Phone: Comment on above: Expected: 03/23/2024 (Approximate), Expi res: 03/23/2025 Start: 03-20-2024 End: 03-20-2024 ambulatory 03/20/2024 8:30 AM EST Treatment [facility] [address] [place] [address] Jimbo Rodriguez, PT [address] [place] [address] Arrived [facility] Comment on above: Arrived Start: 03-12-2024 Hemoglobin A1c measurement Diabetes: Hemoglobin A1C [facility] Start: 03-06-2024 End: 03-06-2024 ambulatory 03/06/2024 10:30 AM EST Treatment [facility] [address] [place] [address] Jimbo Rodriguez, PT [address] [place] [address] [facility] Start: 03-02-2024 End: 03-02-2024 ambulatory 03/02/2024 10:00 AM EST Treatment [facility] [address] [place] [address] Jimbo Rodriguez, PT [address] [place] [address] [facility] Start: 02-28-2024 End: 02-28-2024 [...] [address] [place] [address] Jazzy James, 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 [address] [place] [address] Arrived [facility] Comment on above: Arrived Start: 02-11-2024 End: 02-11-2024 ambulatory 02/11/2024 1:00 PM EST Treatment [facility] [address] [place] [address] 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, 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 [facility] Start: 02-10-2024 End: 02-10-2024 [...] [address] [place] [address] Jimbo Rodriguez, PT [address] [place] [address] [facility] Start: 01-24-2024 End: 01-24-2024 ambulatory [facility] Comment on above: Arrived Start: 01-21-2024 End: 01-21-2024 ambulatory 01/21/2024 11:00 AM EST Treatment [facility] [address] [place] [address] Jimbo Rodriguez, PT [address] [place] [address] [facility] Start: 01-14-2024 End: 01-14-2024 ambulatory 01/14/2024 11:00 AM EST Treatment [facility] [address] [place] [address] MichaelJimbo Lizett, PT [address] [place] [address] [facility] Start: 01-08-2024 End: 01-08-2024 ambulatory [facility] Comment on above: Arrived Start: 01-01-2024 End: 01-01-2024 Admission to same day surgery center 01/01/2024 12:58 PM EST - 01/01/2024 3:42 PM EST Surgery [facility] [address] [place] [address] [place] [address] [place], [place] [id number] ARTHROPLASTY REPLACE JOINT TOTAL KNEE JOÃO/EX STAY [facility] Comment on above: ARTHROPLASTY REPLACE JOINT TOTAL KNEE JOÃO/EX STAY Start: 01-01-2024 End: 01-01-2024 Arthrp kne condyle&platu medial&lat compartments ARTHROPLASTY REPLACE JOINT TOTAL KNEE Unilateral primary osteoarthritis, right knee 01/01/2024 12:58 PM EST AV OR Start: 01-01-2024 Subsequent hospital visit by physician 01/01/2024 12:58 PM EST Hospital Encounter [facility] [address] [place] [address] [place] [address] [place], [place] [id number] Unilateral primary osteoarthritis, right knee [M17.11] [facility] Comment on above: Unilateral primary osteoarthritis, right knee [M17.11] Start: 12-12-2023 End: 12-12-2023 Professional / ancillary services management 12/12/2023 12:30 PM EDT Ancillary Procedure [facility] [address] [place] [address] [facility] Start: 12-11-2023 End: 03-11-2024 Hemoglobin A1c in Blood [facility] Work Phone: Comment on above: Expected: 12/11/2023, Expires: Start: 10-29-2023 End: 10-29-2023 Patient encounter procedure 10/29/2023 9:15 AM EDT Office Visit [facility] [address] [place] [address] Tracey Valenzuela DO [address] [place] [address] [facility] Start: 10-24-2023 End: 10-24-2023 Patient encounter procedure 10/24/2023 7:45 AM EDT Office Visit [facility] [address] [place] [address] Montana Knapp, DO [address] [place] [address] [facility] Start: 10-23-2023 Hemoglobin A1c measurement Diabetes: Hemoglobin A1C [facility] Start: 10-23-2023 End: 10-23-2023 Patient encounter procedure [facility] Comment on above: Arrived Start: 10-22-2023 End: 10-22-2023 Patient encounter procedure 10/22/2023 9:30 AM EDT Office Visit [facility] [address] [place] [address] Tracey Valenzuela DO [address] [place] [address] Arrived [facility] Comment on above: Arrived Start: 10-20-2023 Covid-19 Vaccine () Covid-19 Vaccine () [facility] Start: 10-20-2023 Influenza vaccination [facility] Start: 09-18-2023 Screening for malignant neoplasm of breast [facility] Start: 04-19-2023 Hemoglobin A1c measurement Diabetes: Hemoglobin A1C [facility] Start: 04-17-2023 End: 04-17-2023 Patient encounter procedure 04/17/2023 8:30 AM EST Office Visit [facility] [address] [place] [address] Misa Moe MD [address] [place] [address] [facility] Start: 12-29-2022 Glaucoma screening Diabetes: Retinopathy Screening [facility] Start: 09-07-2022 FUV, Provider: Jack Barbosa, Status: Pen, Time: 11:45 AM FUV, Provider: Jack Barbosa, Status: Pen, Time: 11:45 AM [facility] Work Phone: Start: 09-07-2022 CAROTID, Provider: [facility], Status: Pen, Time: 10:00 AM CAROTID, Provider: [facility], Status: Pen, Time: 10:00 AM [facility] Work Phone: Start: 08-31-2022 Urine screening for protein Diabetes: Urine Protein Screening [facility] Start: 08-03-2022 FUV, Provider: Jack Barbosa, Status: Pen, Time: 10:00 AM FUV, Provider: Jack Barbosa, Status: Pen, Time: 10:00 AM [id number] [address] Work Phone: Start: 08-03-2022 CAROTID, Provider: [facility], Status: Pen, Time: 9:00 AM CAROTID, Provider: [facility],ST[facility], Status: Pen, Time: 9:00 AM RH-Nxypfrsejy-Otuvld [address] Work Phone: Start: 06-21-2021 FUV, Provider: Rizwana Salazar, Status: Pen, Time: 2:00 PM FUV, Provider: Rizwana Salazar, Status: Pen, Time: 2:00 PM [facility] Work Phone: Start: 06-21-2021 CAROTID, Provider: [facility],OSVALDO, Status: Pen, Time: 1:00 PM CAROTID, Provider: [facility],L[facility]NA[facility], Status: Pen, Time: 1:00 PM [facility] Work Phone: Start: 2005 Lipid panel Lipid Screening [facility] Start: 2005 Screening for malignant neoplasm of colon [facility] Start: 1990 Screening for malignant neoplasm of cervix [facility] Start: 1981 Screening for malignant neoplasm of cervix [facility] Start: 05-26-1979 Urine microalbumin profile DTaP,Tdap,Td Vaccine (1 - Tdap) [facility] Start: 1978 Annual PCP Team Chronic Disease Visit Annual PCP Team Chronic Disease Visit [facility] Start: 1978 Anxiety Screening Anxiety Screening [facility] Start: 1978 BP Controlled (<130/80) BP Controlled (<130/80) [facility] Start: 1978 Depression Screening Depression Screening [facility] Start: 1978 Hepatitis C screening Hepatitis C Screening [facility] Start: 1978 HIV screening HIV Screening [facility] Start: 1960 Screening for malignant neoplasm of colon [facility] Dermatopathology exam Dermatopat hology exam Pathology and Cytology Timed Neoplasm of unspecified behavior of bone, soft tissue, and skin Release Upon Ordering for 1 Occurrences starting 02/03/2024 [facility] Work Phone: Comment on above: Release Upon Ordering for 1 Occurrences starting 02/03/2024 End: 11-17-2024 US Carotid arteries - bilateral US CAROTID [facility] Lab Routine Stenosis of right carotid artery Left carotid artery occlusion 1 Occurrences starting 11/18/2023 until 11/17/2024 [facility] Work Phone: Comment on above: 1 Occurrences starting 11/18/2023 until 11/17/2024 Immunizations Immunization Date Immunization Notes Care Provider [facility] 11-29-2022 Influenza, injectabl e, Madin Renu Canine Kidney, preservative free, quadrivalent Cong Rosen PA Work Phone: [facility] 11-29-2022 influenza virus vaccine, unspecified formulation Rizwana Salazar MD Work Phone: [facility] 11-30-2021 Influenza, injectabl e, Madin Moraga Canine Kidney, preservative free, quadrivalent Cong Rosen PA Work Phone: [facility] 11-21-2020 Influenza, injectabl e, Madin Renu Canine Kidney, preservative free, quadrivalent Cong Rosen PA Work Phone: [facility] 12-27-2019 zoster vaccine recombinant Cong Rosen PA Work Phone: [facility] 11-02-2019 Influenza, injectabl e, Madin Moraga Canine Kidney, preservative free, quadrivalent Cong Rosen PA Work Phone: [facility] 10-24-2019 zoster vaccine recombinant Cong Rosen PA Work Phone: [facility] 10-23-2019 zoster vaccine recombinant Cong Rosen PA Work Phone: [facility] 11-26-2018 Influenza, injectabl e, Madin Moraga Canine Kidney, quadrivalent with preservative Cong Rosen PA Work Phone: [facility] 11-26-2018 influenza, injectabl e, madin renu canine kidney, preservative free Cong Rosen PA Work Phone: [facility] 12-04-2017 influenza, injectabl e, madin renu canine kidney, preservative free Cong Rosen PA Work Phone: [facility] 12-13-2016 seasonal influenza, intradermal, preservative free Cong Rosen PA Work Phone: [facility] 12-27-2015 influenza, injectabl e, quadrivalent, preservative free Cong Rosen PA Work Phone: [facility] 12-27-2015 seasonal influenza, intradermal, preservative free Cong Rosen PA Work Phone: [facility] 11-07-2016 seasonal influenza, intradermal, preservative free Cong LAU Work Phone: [facility] Payers Date Payer Category Payer [facility] [id number] 2024 Unknown [id number] 2023 Self-pay [id number] 2022 Private Health Insurance [id number] 2022 Unknown 2022 [facility] [id number] [id number] 2014 Unknown [id number] 1960 Unknown [id number] 2.16.840.1.249490.3.579.2 .356 1960 Unknown [id number] 2.16.840.1.528747.3.579.2 .1243 1960 Unknown [id number] 2.16.840.1.702797.3.579.2 .1259 1960 Unknown [id number] 2.16.840.1.481090.3.579.2 .1259 1960 Unknown [id number] 2.16.840.1.489759.3.579.2 .1259 1960 Unknown [id number] 2.16.840.1.797641.3.579.2 .1258 1960 Unknown [id number] 2.16.840.1.049744.3.579.2 .1258 1960 Unknown [id number] 2.16.840.1.204439.3.579.2 .1258 1960 Unknown [id number] 2.16.840.1.606899.3.579.2 .1258 1960 Unknown [id number] 2.16.840.1.335922.3.579.2 .1258 1960 Unknown [id number] 2.16.840.1.100744.3.579.2 .1258 1960 Unknown [id number] 2.16.840.1.944278.3.579.2 .1258 1960 Unknown [id number] 2.16840.1.646778.3.579.2 .1258 1960 Unknown [id number] 2.16.840.1.382811.3.579.2 .1258 1960 Unknown [id number] 2.16.840.1.992577.3.579.2 .1258 1960 Unknown [id number] 2.16.840.1.510631.3.579.2 .1258 1960 Unknown [id number] 2.16.840.1.634048.3.579.2 .1258 1960 Unknown [id number] 2.16.840.1.792862.3.579.2 .1258 1960 Unknown [id number] 2.16.840.1.335837.3.579.2 .1258 1960 Unknown [id number] 2.16.840.1.395684.3.579.2 .1258 1960 Unknown [id number] 2.16.840.1.595393.3.579.2 .1258 1960 Unknown [id number] 2.16.840.1.561064.3.579.2 .1258 1960 Unknown [id number] 2.16.840.1.053113.3.579.2 .1258 1960 Unknown [id number] 2.840.1.703744.3.579.2 .1258 1960 Unknown [id number] 2..840.1.198741.3.579.2 .1258 1960 Unknown [id number] 2.840.1.557393.3.579.2 .1258 1960 Unknown [id number] 2.840.1.867439.3.579.2 .1258 1960 Unknown [id number] 2.840.1.136476.3.579.2 .1258 1960 Unknown [id number] 2.840.1.561924.3.579.2 .1258 1960 Unknown [id number] 2.840.1.143097.3.579.2 .1258 1960 Unknown [id number] 2.840.1.175421.3.579.2 .1258 1960 Unknown [id number] 2.840.1.448357.3.579.2 .1258 1960 Unknown [id number] 2.840.1.856075.3.579.2 .1258 1960 Unknown [id number] 2.840.1.456907.3.579.2 .1258 1960 Unknown [id number] 2.840.1.417436.3.579.2 .1258 1960 Unknown [id number] 2.840.1.594795.3.579.2 .196 1960 Unknown [id number] 2.16.840.1.983353.3.579.2 .196 Unknown [id number] 2.16.840.1.567436.3.579.2 .243 Unknown [id number] 2.16.840.1.457140.3.579.2 .243 Unknown [id number] 2.16.840.1.706862.3.579.2 .243 Unknown [id number] 2.16.840.1.573917.3.579.2 .531 Social History Date Type Detail Facility Start: 09-26-2022 End: 03-05-2023 [facility] Work Phone: Start: 09-26-2022 End: 06-11-2024 Sex Assigned At [employer] Other Start: 09-26-2022 End: 11-18-2023 Tobacco smoking status NMIS Never smoked tobacco [facility] Start: 09-26-2022 End: 11-18-2023 Tobacco use and exposure Smokeless tobacco non-user [facility] Start: 03-05-2023 End: 06-11-2024 Alcohol intake Current drinker of alcohol (finding) [facility] Within the last year , have you been afraid of your partner or ex-partner? No [facility] How often do you att end worship or gnosticism services? Patient refused [facility] Are you [...] got money to buy more. Never true [facility] Start: 1960 Sex Assigned At Female [facility] Start: 09-11-2022 Gender identity Identifies as female gender (finding) [facility] Start: 09-11-2022 Sexual orientation Heterosexual (finding) [facility] Start: 1960 Sex assigned at Not on file [facility] Start: 12-11-2023 Alcoholic beverage intake Ex-drinker (finding) [facility] Start: 12-11-2023 Alcohol Comment socialy [facility] Goals Date Patient Goal Desired Activity /State Personal health goal Clinical Notes 07-28-2020 to 06-11-2024 Misa Moe MD - 06/11/2024 3:20 PM Humaira Calixto, DO - 06/03/2024 11:40 AM Rene Vera RN - 04/30/2024 9:30 AM EDTTelephone Encounter - Brooks Calixto, DO - 03/23/2024 12:35 PM EST Note Date & Type Note Facility 06-11-2024 Note Consent: The risks a nd benefits of intralesional kenalog were discussed prior to the procedure. Specifically, the risk of skin atrophy was reviewed. It was also emphasized that multiple treatments may be necessary. Verbal consent was obtained from the patient/parent. Method: See MAR for details on administration. The patient/parents were instructed to massage the injection site(s) following the procedure. Instructed to call for any questions or problems that occur. Areas injected: Mid Chest Concentration injected: See MAR for details on administration. The patient/parents were instructed to massage the injection site(s) following the procedure. Instructed to call for any questions or problems that occur. Amount injected (mL): 0.1 cc of K20 # lesions injected: 1 [facility] 06-11-2024 Note Consent: The risks a nd benefits of intralesional kenalog were discussed prior to the procedure. Specifically, the risk of skin atrophy was reviewed. It was also emphasized that multiple treatments may be necessary. Verbal consent was obtained from the patient/parent. Method: See MAR for details on administration. The patient/parents were instructed to massage the injection site(s) following the procedure. Instructed to call for any questions or problems that occur. Areas injected: Mid Chest Concentration injected: See MAR for details on administration. The patient/parents were instructed to massage the injection site(s) following the procedure. Instructed to call for any questions or problems that occur. Amount injected (mL): 0.1 cc of K20 # lesions injected: 1 [facility] 06-11-2024 History of Present illness Narrative Lesions: Location: lower lip Duration: 4-6 months Quality: denies pain, denies itch Associated symptoms: rough Treatments: none Follow up Diagnosis: lichenoid keratosis Location: mid chest Symptoms: red, itchy Procedure performed: Shave biopsy Date of procedure: 02/03/2024 Current treatment: none Established patient All pertinent medical history, medications, and allergies were reviewed. General Exam: alert, oriented to person, place, and time, normal affect, well appearing Unaccompanied A focused exam completed based on patient reported problems, see below: Skin Exam 1. ACTINIC KERATOSIS Mid Lower [place]ilion Lip Erythematous scaly papules Patient was counseled regarding these sun-induced growths that can develop into squamous cell carcinoma if left untreated. Discussed treatment with cryotherapy. It was emphasized that any treated lesions that fail to resolve should be re-evaluated. Cryotherapy performed today; see procedure note Diagnosis: Actinic keratosis Indication: Precancerous Location: see skin exam Consent: Verbal consent was obtained and risks were discussed, including, but not limited to risks of scarring, darker or surgeon's assistant pigmentary changes, recurrence, incomplete removal and infection. Method: Liquid nitrogen was used to treat the lesion(s) with two 5-10 second freeze-thaw cycles. Number of lesions treated: 1 Post-procedure instructions: Instructions were given orally and in writing. The office will be contacted if the lesion fails to resolve despite treatment, or if a side effect develops such as abnormal crusting, scabbing, redness or tenderness Cryotherapy, skin lesion - Mid Lower [place]ilion Lip 2. KELOID Mid Chest Erythematous, firm dermal papule/plaque Given symptoms, recommend treatment with ILK today. ILK 20mg/ml (0.1 ml total) today, see MAR for details. No charge today per Dr. Moe Intralesional Kenalog Injection - Mid Chest Consent: The risks and benefits of intralesional kenalog were discussed prior to the procedure. Specifically, the risk of skin atrophy was reviewed. It was also emphasized that multiple treatments may be necessary. Verbal consent was obtained from the patient/parent. Method: See [facility] for details on administration. The patient/parents were instructed to massage the injection site(s) following the procedure. Instructed to call for any questions or problems that occur. Areas injected: Mid Chest Concentration injected: See [facility] for details on administration. The patient/parents were instructed to massage the injection site(s) following the procedure. Instructed to call for any questions or problems that occur. Amount injected (mL): 0.1 cc of K20 # lesions injected: 1 triamcinolone acetonide (Kenalog-40) injection 20 mg - Mid Chest Next Visit: 4 weeks documented in this encounter [facility] 06-03-2024 History of Present illness Narrative Images from the original note were not included. [facility] LOIS Gibbons SUBJECTIVE: HPI: Carolynn Givens is a 64 y.o. female who presents with chief complaint of No chief complaint on file. Pt presents for chronic care follow up, wellness. I have reviewed and reconciled the history and medication list with the patient today. Depression: Not at risk (07/18/2023) Received from [facility] PHQ-2 Patient Health Questionnaire-2 Score: 0 reports that she has never smoked. She has never used smokeless tobacco. She reports current alcohol use of about 2.0 standard drinks of alcohol per week. She reports that she does not use drugs. OBJECTIVE: 09/26/2022 1:45 PM 10/30/2022 8:27 AM 05/15/2023 1:35 PM 07/23/2023 12:14 PM 10/24/2023 7:48 AM 11/13/2023 11:54 AM 06/03/2024 11:34 AM Vitals BMI 36.58 kg/m2 36.58 kg/m2 33.28 kg/m2 33.28 kg/m2 33.28 kg/m2 33.28 kg/m2 33.28 kg/m2 BSA (m2) 1.99 m2 1.99 m2 2.04 m2 2.04 m2 2.04 m2 2.04 m2 2.04 m2 Systolic 124 128 130 126 130 Diastolic 76 76 72 70 76 Heart Rate 90 76 67 71 SpO2 98 % 96 % 96 % Temp 98 F 97.6 F 97.5 F 96.6 F Height (in) 5' 2 5' 2 5' 5 5' 5 5' 5 5' 5 5' 5 Weight (lb) 200 200 200 200 200 200 Visit Report Report Report Report Report Report Report Report Report Physical Exam Constitutional: General: She is not in acute distress. Appearance: She is not ill-appearing. HENT: Head: Normocephalic. Cardiovascular: Rate and Rhythm: Normal rate and regular rhythm. Heart sounds: No murmur heard. Pulmonary: Effort: Pulmonary effort is normal. Breath sounds: Normal breath sounds. No wheezing. Abdominal: General: Abdomen is flat. There is no distension. Tenderness: There is no abdominal tenderness. Musculoskeletal: General: No deformity. Normal range of motion. Cervical back: Normal range of motion. Skin: General: Skin is warm and dry. Neurological: General: No focal deficit present. Mental Status: She is alert and oriented to person, place, and time. Psychiatric: Mood and Affect: Mood normal. Behavior: Behavior normal. Thought Content: Thought content normal. Judgment: Judgment normal. Recent Results (from the past 4 weeks) POCT glycosylated hemoglobin (Hb A1C) docked device Collection Time: 06/03/24 11:57 AM Result Value Ref Range Hemoglobin A1C 5.9 ASSESSMENT AND PLAN: Assessment/Plan Diagnoses and all orders for this visit: Wellness examination Type 2 diabetes mellitus without complication, without long-term current use of insulin - POCT glycosylated hemoglobin (Hb A1C) docked device - Tirzepatide (Mounjaro) 2.5 MG/0.5ML solution auto-injector; Inject 2.5 mg under the skin 1 (one) time per week - Microalbumin / creatinine, urine ratio; Future Benign hypertension (CMS/HCC) - bisoprolol-hydroCHLOROthiazide (Ziac) 2.5-6.25 MG tablet; Take 1 tablet by mouth Daily Other specified hypothyroidism - levothyroxine (Synthroid) 125 MCG tablet; Take 1 tablet (125 mcg) by mouth Daily Occlusion and stenosis of left carotid artery - clopidogrel (Plavix) 75 MG tablet; Take 1 tablet (75 mg) by mouth Daily Neuralgia and neuritis, unspecified - pregabalin (Lyrica) 300 MG capsule; TAKE 1 CAPSULE (300 MG) BY MOUTH IN THE MORNING AND AT BEDTIME Mixed hyperlipidemia (CMS/HCC) - atorvastatin (Lipitor) 80 MG tablet; Take 1 tablet (80 mg) by mouth at bedtime Herpes - acyclovir (Zovirax) 400 MG tablet; Take 1 tablet (400 mg) by mouth Daily Reviewed recent labs, vital signs regarding all of her chronic conditions. All are well controlled at this time, continue management as above. We discussed specific dietary/lifestyle modifications which should be followed to continue to have such excellent control. We discussed appropriate follow up in 6 months here to maintain good control of these conditions and he understands to come back sooner if there are any concerning symptoms or complications. Preventative care discussed as appropriate. Previous labs were reviewed, new orders placed as appropriate. Recommend continuing annual wellness examinations. Brooks Calixto DO Patient Active Problem List Diagnosis Acquired hallux [...] of left eye Postoperative hypothyroidism (CMS/HCC) Prediabetes Factor V Leiden (CMS/HCC) Contracture of knee joint Past Medical History: Diagnosis Date Anxiety Atypical nevi Carotid artery stenosis Cerebrovascular accident (CVA) due to embolism (CMS/HCC) 01/01/2024 Diabetes (CMS/HCC) Diabetes mellitus (CMS/HCC) Disease of thyroid gland (CMS/HCC) Hyperlipidemia (CMS/HCC) Hypertension (CMS/HCC) Hypothyroidism (CMS/HCC) post thyroidectomy Impaired fasting glucose Obesity YUAN (obstructive sleep apnea) Stroke (CMS/HCC) 09/2015 hospitalized documented in this encounter [facility] 04-30-2024 History of Present illness Narrative 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 documented in this encounter [facility] 03-23-2024 Telephone encounter Note Refilled this, but it is time to recheck her thyroid labs again at her convenience, order sent to [facility] 03-23-2024 Miscellaneous Notes Refilled this, but it is time to recheck her thyroid labs again at her convenience, order sent to [facility] documented in this encounter [facility] 03-20-2024 History of Present illness Narrative [...] discuss flexion stiffness. documented in this encounter [facility] 03-02-2024 History of Present illness Narrative [...] PT per POC. documented in this encounter [facility] 02-28-2024 History of Present illness Narrative [...] PT per POC. documented in this encounter [facility] 02-26-2024 History of Present illness Narrative [...] PT per POC. documented in this encounter [facility] 02-21-2024 History of Present illness Narrative [...] PT per POC. documented in this encounter [facility] 02-18-2024 History of Present illness Narrative [...] PT per POC. documented in this encounter [facility] 02-17-2024 History of Present illness Narrative [...] PT per POC. documented in this encounter [facility] 02-10-2024 History of Present illness Narrative [...] PT per POC. documented in this encounter [facility] 02-07-2024 History of Present illness Narrative [...] PT per POC. documented in this encounter [facility] 02-04-2024 History of Present illness Narrative [...] PT per POC. documented in this encounter [facility] 02-03-2024 History of Present illness Narrative [...] soft tissue, and skin (2) mid chest Bryson papule Lesion biopsy Type of biopsy: tangential [...] year skin check documented in this encounter [facility] 01-31-2024 History of Present illness Narrative [...] PT per POC. documented in this encounter [facility] 01-28-2024 History of Present illness Narrative [...] PT per POC. documented in this encounter [facility] 01-24-2024 History of Present illness Narrative [...] PT per POC. documented in this encounter [facility] 01-21-2024 History of Present illness Narrative [...] PT per POC. documented in this encounter [facility] 01-14-2024 History of Present illness Narrative [...] PT per POC. documented in this encounter [facility] 01-08-2024 History of Present illness Narrative [...] PT per POC. documented in this encounter [facility] 01-06-2024 History of Present illness Narrative [...] sign below. Date: documented in this encounter [facility] 01-02-2024 Note HNO ID: [id number] Author: EMMY MONTILLA RN Service: Care Management Author Type: Registered Nurse Type: Care Mgt Initial Assessment Filed: 01/02/2024 09:51 Note Text: CARE MANAGEMENT: ASSESSMENT AND DISCHARGE PLAN SERVICE DATE: January 02, 2024 SERVICE TIME: 9:47 AM PCP: Brooks Calixto DO Primary Contact: Extended Emergency Contact Information Primary Emergency Contact: elvis givens Address: [address] [place] [address] Relation: Spouse Admission Status: Extended Recovery Insurance Provider: [employer] O Discharge Planning requested by: Per Department Practice Potential Transition Plans Home;Outpatient Therapy Advance Directives Current Advance Directive: Health Care Power of Record Producer In Chart: No Current Living Arrangements and [...] wellness, Increase strength, Better mobility, Heal wounds [place] of Choice Explained: [place] of [place] Given: No Reason Not Given: No placements necessary Are you interested in bedside delivery of your medications? Yes Discharge Planning Participant(s): Patient Patient/Family Comments: n/a Caregiver Assessment: Caregiver is ready, willing and able to meet the patient's needs as recommended by the inter-professional team: Yes Name of Caregiver: givens,daniel (Spouse) Transport at Discharge: Transportation Arrangements: Car Destination: [address] [place] [address] Needs Prior to Discharge: Needs Prior to Discharge: OT/PT Evaluation Post-Acute Discharge Plan: Patient lives with spouse. Spouse will drive patient home. Patient has her walker. Patient will be doing outpatient therapy at [facility]. Patient's first appt is Saturday01-06-24. Clinicals faxed to [facility] at [phone]. SIGNATURE: Emmy Montilla RN PATIENT NAME: Carolynn Givens DATE: January 02, 2024 TIME: 9:47 AM CONTACT #: [facility] 01-02-2024 Note HNO ID: [id number] Author: MACHO SALAZAR PA-C Service: Orthopaedic Surgery Author Type: Physician [place] Type: Progress Notes Filed: 01/02/2024 12:57 Note [...] -- 01/01/24 1700 vte [place]ag [place] 01/01/24 170 pneumatic compression stockings ([place]) 01/01/24 170 activity - mobilize patient ([place] I spent a total of 35 minutes on the date of the service which included preparing to see the patient, [id number] patient care, completing clinical documentation, obtaining and/or reviewing separately obtained history, and performing a medically appropriate examination. SIGNATURE: Macho Salazar PA-C PATIENT NAME: Carolynn Givens DATE: January 02, 2024 TIME: 8:38 AM [facility] 01-01-2024 Note HNO ID: [id number] Author: QUINN SALAZAR MD Service: Anesthesiology Author Type: Anesthesiologist Type: Anesthesia Procedure Notes Filed: 01/01/2024 18:58 Note Text: ANESTHESIOLOGY PROCEDURE NOTE Peripheral Nerve Block General Information Procedure Start Time/Medication Administration: 01/01/2024 1:30 PM Procedure End time: 01/01/2024 1:32 PM Patient location during procedure: OR Timeout Performed Pre-procedure: timeout performed Consent Obtained: Yes Patient identity confirmed: arm band, care team guide and patient sedated or unresponsive Reason for [...] January 01, 2024 TIME: 6:57 PM CSN: [id number] [facility] 01-01-2024 Note HNO ID: [id number] Author: PETRA HOWE APRN.CABLE ASSEMBLER Service: ? Author Type: Nurse Sander And Polisher Type: Anesthesia Procedure Notes Filed: 01/01/2024 13:31 Note Text: ANESTHESIOLOGY PROCEDURE NOTE Spinal Block General Information Procedure Start Time/Medication Administration: 01/01/2024 1:16 PM Procedure End time: 01/01/2024 1:16 PM Patient location during procedure: OR Timeout Performed Pre-procedure: timeout performed Consent Obtained: Yes Patient identity confirmed: arm band and patient Reason for Block: primary surgical anesthetic Staffing CABLE ASSEMBLER: Petra Howe APRN.CABLE ASSEMBLER Performed by: CABLE ASSEMBLER Preparation Sterility Preparation: hand hygiene performed prior [...] January 01, 2024 TIME: 1:31 PM CSN: [id number] [facility] 12-11-2023 Telephone encounter Note error [facility] 12-11-2023 Miscellaneous Notes error documented in this encounter [facility] 12-11-2023 History and physical note Images [...] complete echo vijaya. As patient works at [employer] she will schedule and complete it there. [...] Cardiovascular:+carotid stenosis, htn, hld Negative for Recent MN, Angina, Arrhythmia, CAD, Chest Pain GI: No [...] KLOR-CON M10 10 mEq tablet Taking Yes Warren-3 Fatty Acids, FISH OIL, 360-1,200 mg cap [...] mg tablet KLOR-CON M10 10 mEq tablet Warren-3 Fatty Acids, FISH OIL, 360-1,200 mg cap [...] DATE: 12/11/2023 TIME: 2:51 PM PAGER/CONTACT #: [facility] 12-11-2023 History and physical note Images [...] complete echo vijaya. As patient works at [employer] she will schedule and complete it there. [...] Cardiovascular:+carotid stenosis, htn, hld Negative for Recent MN, Angina, Arrhythmia, CAD, Chest Pain GI: No [...] KLOR-CON M10 10 mEq tablet Taking Yes Warren-3 Fatty Acids, FISH OIL, 360-1,200 mg cap [...] found for: HBA1C EKG 07/23/23 scanned into [facility] US carotids 09/25/23 found in care [...] mg tablet KLOR-CON M10 10 mEq tablet Warren-3 Fatty Acids, FISH OIL, 360-1,200 mg cap [...] PM PAGER/CONTACT #: documented in this encounter [facility] 12-11-2023 Instructions Pacheco Villela PA-C - 12/11/2023 8:07 AM EDT Images from the original note were not included. [facility]est[facility] PATIENT PREOPERATIVE INSTRUCTIONS Jorge L Hatch, * has scheduled you for your procedure at this surgery center: [facility]: [phone] --[address] [place] [address]. Please enter through the entrance closest to [facility]. Please read below carefully for your personalized instructions. Complete you echocardiogram at [facility] Arrival Time for Surgery: - The Surgery [...] or other anticoagulants without consulting with your boring mill operator for metal or prescribing physician. - Stop Vitamin E, [...] Procedures: - YOU MUST HAVE A RESPONSIBLE FISHER CRAB TAKE YOU HOME. A ASSOCIATE JAVA DEVELOPER OR MEDICAL LABORATORY TECHNOLOGIST CANNOT BE MADE A RESPONSIBLE FISHER CRAB. - We recommend that a responsible person stays with you overnight to take care of you. - You cannot stay in a hotel alone after outpatient surgery. You will not be permitted to have your surgery, if you do not have someone to take care of you. If you already have an Advance Directive, please fax a copy to [phone] or email to for it to be [...] Pacheco Villela PA-C documented in this encounter [facility] 11-18-2023 Note HNO ID: [id number] Author: RIZWANA SALAZAR MD Service: ? Author Type: Physician Type: Progress Notes Filed: 11/18/2023 15:55 Note Text: [facility] [place] DEPARTMENT OF VASCULAR SURGERY OUTPATIENT VISIT DATE [...] for today's visit: US CAROTID BILATERAL Order: [id number] [place] [facility] [place] [id number] [address] [id number] Vascular Lab Report [facility] US CAROTID ARTERY DUPLEX BILATERAL Patient Name: CAROLYNN GIVENS Reading Physician: [id number] Eddie Marie MD Study Date: 09/25/2023 Ordering Provider: [id number] JACK BARBOSA MRN/PID: [id number] Fellow: Technologist: Carolynn Olvera RVT, [facility] Date of /Age: 405/25/1960 / 63 years Technologist 2: Gender: F Admission Status: Outpatient Location Performed: [facility] Diagnosis/ICD: Occlusion and stenosis of bilateral carotid arteries-I65.23 Indication: Carotid Occlusion/Stenosis w/o infarct CPT Codes: 96523 Cerebrovascular Carotid Duplex scan complete Pertinent History: [...] artery is jarrett (more content not included)... [facility] 11-18-2023 History of Present illness Narrative Images from the original note were not included. [facility] [place] DEPARTMENT OF VASCULAR SURGERY OUTPATIENT VISIT DATE November 18, 2023 OUTPATIENT VISIT TYPE CONSULTATION SERVICE DATE: 11/18/2023 SERVICE TIME: 9:53 AM PRIMARY CARE PHYSICIAN: Dr Bob Calixto ([facility]) REFERRING PROVIDER: Self Consult requested for an [...] reviewed for today's visit: CAROTID BILATERAL Order: [id number] [facility] [address] [place] [address] Vascular Lab Report [facility] US CAROTID ARTERY DUPLEX BILATERAL Patient Name: CAROLYNN GIVENS Reading Physician: [id number] Eddie Marie MD Study Date: 09/25/2023 Ordering Provider: [id number] JACK BARBOSA MRN/PID: [id number] Fellow: Technologist: Carolynn Olvera RVLena, RDMS Date of /Age: 405/25/1960 / 63 years Technologist 2: Gender: F Admission Status: Outpatient Location Performed: [facility] Diagnosis/ICD: Occlusion and stenosis of bilateral carotid arteries-I65.23 Indication: Carotid Occlusion/Stenosis w/o infarct CPT Codes: 43988 Cerebrovascular Carotid Duplex scan complete Pertinent History: [...] Proximal 140 cm/s Right ICA/CCA Ratio 2.1 [id number] Eddie Marie MD ESSION: Ms. Givens is a 63 year old female with chronic L ICA occlusion. Mild R carotid stenosis several years after R CEA. OK to proceed with knee surgery as needed. RTC one year with az with repeat carotid duplex. SIGNATURE: Rizwana Salazar MD PATIENT NAME: Carolynn Givens DATE: November 18, 2023 TIME: 9:53 AM documented in this encounter [facility] 11-13-2023 History of Present illness Narrative [...] Not at risk (07/18/2023) Re[facility] from [facility] PHQ-2 Patient Health Questionnaire-2 Score: 0 reports [...] (CMS/HCC) 09/2015 hospitalized documented in this encounter [facility] 10-24-2023 History of Present illness Narrative [...] Not at risk (07/18/2023) Received from [facility] PHQ-2 Patient Health Questionnaire-2 Score: 0 REVIEW [...] her vascular team from either or the [facility] regarding her carotid artery disease. We [...] to Dr. Calixto. documented in this encounter [facility] 10-23-2023 History of Present illness Narrative [...] techniques, suboccipital release. 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) Diabetes mellitus ([facility] Disease of thyroid gland ([facility]) Hyperlipidemia ([facility] Hypertension ([facility] Hypothyroidism ([facility]) post thyroidectomy Impaired fasting glucose Obesity YUAN (obstructive sleep apnea) Stroke ([facility]) 09/2015 hospitalized ALLERGIES: Allergies Allergen [...] right knee demonstrate medial compartment collapse with mvze-kn-osue and subchondral sclerosis and varus alignment bilateral [...] is going to continue to use her zlpg-aaa-avefact brace. She states she tried various nonsteroidals. [...] Valenzuela/yandy Valenzuela D.O. documented in this encounter [facility] 07-18-2023 Note SUBJECTIVE: Chief complaint: Back [...] do physical therapy 1 year ago at [facility] without lasting or substantial improvement. Did see pain management provider, Dr. Colbert, at [facility] and had 3 epidural steroid injections, most recently about 18 months ago, without lasting or substantial improvement. Has not had previous back surgery. Has tried medications, including gabapentin, and Lyrica without substantial improvement. States takes Tylenol with minimal improvement. 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 Used to enjoy boating and Jet Skiing, though [facility] for the past 2 years, she [...] acyclovir ALPRAZolam aspirin atorvastatin bisoproloL-hydrochlorothiazide clopidogrel hydroCHLOROthiazide MULTIVIT,[id number] ORAL NEURIVA PLUS BRAIN PERFORMANCE ORAL omega-3 [...] mouth 2 times daily., Disp: , Rfl: MULTIVIT,[id number] ORAL, Take by mouth., Disp: , Rfl: [...] regular and nonlabored. (more content not included)... [facility] 05-14-2022 Evaluation note Encounter Date Diagnosis Assessment Notes Apr, Sacroiliitis (ICD-10 - M46.1) Continue to wear insoles as provided by shredding machine operator. If pain persists, we can consider proceeding [...] Aspirin for 5 days prior to procedure. [employer] Other 03-22-2023 Evaluation note* Encounter Date Diagnosis Assessment Notes Treatment Notes Treatment Clinical Notes Apr, Sciatica, right side (ICD-10 - M54.31) Apr, Sciatica, left side (ICD-10 - M54.32) [employer] Other 03-20-2023 Reason for referral (narrative)* Reason 05/09/22 @ 1:30 gurrola rgical consultation for lumbar radiculopathy of L4-5, not improving with epidural injections Diagnosis 1 Lumbar radiculopathy (M54.16) Referral Organization [facility] Pain Managemen t Referring Provider First Name Jatin Referring Provider Last Name Shana Referring Provider Specialty Pain Medici ne Referred Organization [facility] Referred Provider Iza King Referred Address [address] [place] [phone] Referred Provider Specialty Neurological Surgery Referral Priority Routine Referral Appointment Date 2022-05-09 General Notes Denise Kwan 04:47:59 PM >received today, note locked, sent P2P Jayde Lawrence 05/01/2022 11:37:06 AM >pt is scheduled 05/09/22 [employer] Other 03-07-2023 Evaluation note* Encounter Date Diagnosis [...] Aspirin for 5 days prior to procedure. [employer] Other 02-06-2023 Evaluation note* Encounter Date Diagnosis [...] Aspirin for 5 days prior to procedure. [employer] Other 01-18-2023 Evaluation note* Encounter Date Diagnosis [...] negative findings were considered in medical decision-making. [employer] Other 06-17-2022 History of Present illness [id number] female presenting for carotid followup. She was last seen by Dr. Salazar last year. Duplex reveals less than 50% stenosis on the right with unchanged velocity. She has a h/o left carotid occlusion. She is taking aspirin, plavix and atorvastatin.[facility] Work Phone: 1(799) 686-866206-11-2021 History of Present illness [id number] female presenting for carotid followup. She was last seen by Dr. Salazar last year. Duplex reveals less than 50% stenosis on the right with unchanged velocity. She has a h/o left carotid occlusion. She is taking aspirin, plavix and atorvastatin.-[facility] [address] Work Phone: 1(690) 673-916606-10-2021 History of Present illness [id number] female presenting for carotid followup. She was last seen by Dr. Salazar last year. Duplex reveals less than 50% stenosis on the right with unchanged velocity. She has a h/o left carotid occlusion. She is taking aspirin, plavix and atorvastatin.[facility] Work Phone: Evaluation noteNo InformationNort [employer] Other Evaluation note* Diagnosis Neuralgia and neuritis, unspecified [facility] Diagnosis Stenosis of right carotid artery- Primary Occlusion and stenosis of carotid artery without mention of cerebral infarction Left carotid artery occlusion Occlusion and stenosis of carotid artery without mention of cerebral infarction [facility] Psychophysiological insomnia Persistent disorder of initiating or maintaining sleep documented in this encounter [facility] HealthcareEvaluation note* Diagnosis Type 2 diabetes mellitus without complication, without long-term current use of insulin ([facility]) documented in this encounter [facility] HealthcareEvaluation note* Diagnosis Pre-op exam- Primary Preoperative examination, unspecified History of CVA (cerebrovascular accident) Transient ischemic attack (TIA), and cerebral infarction without residual deficits Bilateral carotid artery stenosis Occlusion and stenosis of carotid artery without mention of cerebral infarction Primary hypertension Unspecified essential hypertension Hypothyroidism, unspecified type Obesity, Class II, BMI 35-39.9 Obesity, unspecified Prediabetes Other abnormal glucose Factor V Leiden ([facility]) Primary hypercoagulable state Murmur Undiagnosed cardiac murmurs YUAN (obstructive sleep apnea) Obstructive sleep apnea (adult) (pediatric) Unilateral primary osteoarthritis, right knee [facility] noteNo assessment information availableKeenan Private [facility] Work Phone: Evaluation note* Diagnosis Psychophysiological insomnia Persistent disorder of initiating or maintaining sleep documented in this encounter [facility] HealthcareEvaluation note* Diagnosis Acute pain of right knee- Primary S/P total knee arthroplasty, right documented in this encounter [facility] HealthcareEvaluation note* Diagnosis Acute pain of right knee- Primary S/P total knee arthroplasty, right documented in this encounter [facility] HealthcareEvaluation note* Diagnosis Acute pain of right knee- Primary S/P total knee arthroplasty, right documented in this encounter [facility] HealthcareEvaluation note* Diagnosis Psychophysiological insomnia Persistent disorder of initiating or maintaining sleep documented in this encounter [facility] HealthcareEvaluation note* Diagnosis Acute pain of right knee- Primary S/P total knee arthroplasty, right documented in this encounter [facility] HealthcareEvaluation note* Diagnosis Acute pain of right knee- Primary S/P total knee arthroplasty, right documented in this encounter [facility] HealthcareEvaluation note* Diagnosis Acute pain of right knee- Primary S/P total knee arthroplasty, right documented in this encounter [facility] Healthcare[facility] note* Diagnosis Melanocytic nevus of [...] complication, without long-term current use of insulin ([facility]) Type 2 diabetes mellitus with diabetic cataract ([facility]) Type II or unspecified type diabetes mellitus with ophthalmic manifestations, not stated as uncontrolled 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[facility]) Sacroiliitis, not elsewhere classified ([facility]) Sacroiliitis, not elsewhere classified documented [...] encounter [facility]* Diagnosis Mixed hyperlipidemia ([facility]) Mixed hyperlipidemia Neuralgia and neuritis, unspecified [facility]* Diagnosis Chronic pain syndrome Psychophysiological insomnia Persistent disorder of initiating or maintaining sleep documented [facility]* Diagnosis Knee pain, unspecified chronicity, unspecified laterality- Primary documented [facility]* Diagnosis Other specified hypothyroidism (CMS/HCC) documented [facility]* Diagnosis Psychophysiological insomnia Persistent disorder of initiating or maintaining sleep documented [facility]* Diagnosis Chronic pain syndrome Psychophysiological insomnia Persistent disorder of initiating or maintaining sleep documented [facility]* Diagnosis Screening for diabetes mellitus Screening for lipoid disorders documented [facility]* Diagnosis Wellness examination- Primary Type 2 diabetes mellitus without complication, without long-term current use of insulin Benign hypertension (CMS/HCC) Essential hypertension, benign Other specified hypothyroidism Occlusion and stenosis of left carotid artery Neuralgia and neuritis, unspecified Mixed hyperlipidemia (CMS/HCC) Mixed hyperlipidemia Herpes Herpes simplex without mention of complication [facility] Diagnosis Actinic keratosis- Primary Keloid Keloid scar documented [facility]* [...] thyroidectomy Hospitalization History see above surg. hx. [facility] to be Other History of Present illness [id number] female presenting for carotid followup. She denies lateralizing symptoms. She has a known leftcarotid occlusion. She continues to take aspirin, plavix and atorvastatin.[facility] Work Phone: History of Present illness [id number] female presenting for carotid follow up. She denies lateralizing symptoms. She has a known left carotid occlusion and h/o right CEA. She continues to take aspirin, plavix and atorvastatin.[facility] Work Phone: Reason for referral (narrative)* Outpatient Procedure (Routine) - New Request Specialty Diagnoses / Procedures Referred By Shira payne [facility] Diagnoses Stenosis of right carotid artery Left carotid artery occlusion Procedures US CAROTID ARTERIES MAT V[facility] LAB DUPLEX SCAN EXTRACRANIAL ART [place] [address] [place] [address] [facility] [place] [address] [place] [address] Referral ID Status Reason Start Date Expiration Date Visits Requested Visits Authorized [id number] New Request Auto-Generat ed Referral 11/18/2023 11/17/2024 1 1 [facility] for visit Narrative* Rehabilitation - Outpatient (Routine) - Authorized Specialty Diagnoses / Procedures Referred By Contac t Referred To Contact Physical Therapy Diagnoses R TKA Procedures PA PHYSICAL THERAPY EVALUATION LOW COMPLEX 20 MINS Jorge L Hatch MD [address] [place] [phone] Phone: tel: fax: Jimbo Rodriguez, PT [address] [facility] [address] [place] [address] Phone: tel: fax: Referral ID Status Reason Start Date Expiration Date Visits Requested Visits Authorized [id number] Authorized Consult and Treat 01/03/2024 07/01/2024 20 20 [facility] N[facility]* Rehabilitation - Outpatient (Routine) - Authorized Specialty Diagnoses / Procedures Referred By Contac t Referred To Contact Physical Therapy Diagnoses R TKA Procedures PA PHYSICAL THERAPY EVALUATION LOW COMPLEX 20 MINS Jorge L Hatch MD [address] [place] [phone] Phone: tel: fax: Jimbo Rodriguez, PT [address] [address] [place] [address] Phone: tel: fax: Referral ID Status Reason Start Date Expiration Date Visits Requested Visits Authorized [id number] Authorized Consult and Treat 01/03/2024 02/18/2024 20 20 [facility] N[facility]* Rehabilitation - Outpatient (Routine) - Authorized Specialty Diagnoses / Procedures Referred By Contac t Referred To Contact Physical Therapy Diagnoses R TKA Procedures PA THERAPEUTIC PX 1/> AREAS EACH 15 MIN EXERCISES Jorge L Hatch MD [address] [address] Phone: tel: fax: Jimbo Rodriguez, PT [address] [place] [address] Referral ID Status Reason Start Date Expiration Date V isits Requested Visits Authorized [id number] Authorized 02/20/2024 08/18/2024 99 99 [facility] N[facility]* Rehabilitation - Outpatient (Routine) - Authorized Specialty Diagnoses / Procedures Referred By Contac t Referred To Contact Physical Therapy Diagnoses R TKA Procedures PA THERAPEUTIC PX 1/> AREAS EACH 15 MIN EXERCISES Jorge L Hatch MD [address] [place] [address] Phone: tel: fax: Jimbo Rodriguez, PT [address] [place] [address] Referral ID Status Reason Start Date Expiration Date V isits Requested Visits Authorized [id number] Authorized 02/20/2024 08/18/2024 99 20 [facility] N[facility]* Rehabilitation - Outpatient (Routine) - Authorized Specialty Diagnoses / Procedures Referred By Contac t Referred To Contact Physical Therapy Diagnoses R TKA Procedures PA THERAPEUTIC PX 1/> AREAS EACH 15 MIN EXERCISES Jorge L Hatch MD [address] [place] [phone] Phone: tel: fax: Jimbo Rodriguez, PT [address] [place] [address] Referral ID Status Reason Start Date Expiration Date V isits Requested Visits Authorized [id number] Authorized 02/20/2024 02/17/2025 12 12 [facility] Summary Purpose Family History No Family History [...] Specialty Diagnoses / Procedures Referred By Shira t Referred To Contact Orthopaedic Surgery Diagnoses Primary osteoarthritis of right knee Procedures L Inj/Asp: R knee Tracey Valenzuela, [address] [place] [address] Referral ID Status Reason Start Date Expiration Date V isits Requested Visits Authorized [id number] Authorized 10/22/2023 04/19/2024 1 1 Additional Source Comments INFORMATION SOURCE (unrecogn ized section and content) DATE CREATED AUTHOR 05/19/2018 [facility] DATE CREATED AUTHOR AUTHOR'S ORGANIZ ATION 07/15/2021 [facility] DATE CREATED AUTHOR AUTHOR'S ORGANIZ ATION 07/24/2021 [facility] dical Specialist DATE CREATED AUTHOR AUTHOR'S ORGANIZ ATION 10/20/2022 [facility] DATE CREATED AUTHOR AUTHOR'S ORGANIZ ATION 10/21/2022 [employer] DATE CREATED AUTHOR AUTHOR'S ORGANIZ ATION 08/12/2023 [facility] DATE CREATED AUTHOR AUTHOR'S ORGANIZ ATION 09/30/2023 [facility] DATE CREATED AUTHOR AUTHOR'S ORGANIZ ATION 11/18/2023 [facility] DATE CREATED AUTHOR AUTHOR'S ORGANIZ ATION 01/17/2024 [facility] DATE CREATED AUTHOR AUTHOR'S ORGANIZ ATION 02/27/2024 [facility] DATE CREATED AUTHOR AUTHOR'S ORGANIZ ATION 06/12/2024 [facility] dical [facility]ists EPIC DATE CREATED AUTHOR AUTHOR'S ORGANIZ ATION 06/28/2024 [facility] REASON FOR VISIT (unrecogniz ed section [...] Reason Onset Date Comments Med Refill 04/22/2024 Reason Comments Suspicious Skin Lesion Reason Onset Date Comments Med Refill 06/26/2024 Care Teams (unrecognized sec tion and content) Call Center Support Consultant Relationship Specialty Start Date End Date Sukhwinder Stockton DO [address] [place] [address] PCP - General Family Medicine 11/29/22 Cong Rosen PA [address] [place] [address] Physician Fisher Weir Family Medicine 08/10/22 Call Center Support Consultant Relationship Specialty Start Date End Date Cong Rosen PA-C [address] [place] [address] Physician Fisher Weir 06/18/23 Call Center Support Consultant Relationship Specialty Start Date End Date Brooks Calixto DO [address] [place] [address] PCP - General Family Medicine 09/27/23 Cong Rosen PA [address] [place] [address] Physician Fisher Weir Family Medicine 08/10/22 Call Center Support Consultant Relationship Specialty Start Date End Date Brooks Calixto DO [address] [place] [address] PCP - General Family Medicine 09/27/23 Cong Rosen, PA-C [address] [place] [address] Physician Fisher Weir 06/18/23 [place] [address] [place] [address] Surgeon Orthopedics 11/19/23 Call Center Support Consultant Relationship Specialty Start Date End Date Brooks Calixto DO [address] [place] [address] PCP - General Family Medicine 09/27/23 Cong Rosen PA [address] [place] [address] Physician Fisher Weir Family Medicine 08/10/22 Call Center Support Consultant Relationship Specialty Start Date End Date Brooks Calixto DO [address] [place] [address] PCP - General Family Medicine 09/27/23 Cong Rosen, PA [address] [place] [address] Physician Fisher Weir Family Medicine 08/10/22 Team Status: Active Member Role Status Dates Brooks Calixto DO Primary Care Provider Active Team Status: Inactive Member Role Status Dates Brooks Calixto DO Primary Care Provi nina, Attending Provider Active Start: December 20, 2023 End: December 20, 2023 Call Center Support Consultant Relationship Specialty Start Date End Date Brooks Calixto DO [address] [place] [address] PCP - General Family Medicine 09/27/23 Cong Rosen, PA [address] [place] [address] Physician Fisher Weir Family Medicine 08/10/22 Call Center Support Consultant Relationship Specialty Start Date End Date Brooks Calixto DO [address] [place] [address] PCP - General Family Medicine 09/27/23 Cong Rosen, PA [address] [place] [address] Physician Fisher Weir Family Medicine 08/10/22 Call Center Support Consultant Relationship Specialty Start Date End Date Brooks Calixto DO [address] [place] [address] PCP - General Family Medicine 09/27/23 Cong Rosen, PA [address] [place] [address] Physician Fisher Weir Family Medicine 08/10/22 Call Center Support Consultant Relationship Specialty Start Date End Date [place], Brooks L, DO [address] [place] [address] PCP - General Family Medicine 09/27/23 Cong Rosen, PA [address] [place] [address] Physician Fisher Weir Family Medicine 08/10/22 Call Center Support Consultant Relationship Specialty Start Date End Date Brooks Calixto DO [address] [place] [address] PCP - General Family Medicine 09/27/23 Cong Rosen, PA [address] [place] [address] Physician Fisher Weir Family Medicine 08/10/22 Call Center Support Consultant Relationship Specialty Start Date End Date Brooks Calixto DO [address] [place] [address] PCP - General Family Medicine 09/27/23 Cong Rosen, PA [address] [place] [address] Physician Fisher Weir Family Medicine 08/10/22 Call Center Support Consultant Relationship Specialty Start Date End Date Brooks Calixto DO [address] [place] [address] PCP - General Family Medicine 09/27/23 Cong Rosen, PA [address] [place] [address] Physician Fisher Weir Family Medicine 08/10/22 Sonia Vera, NII Registered Nurse Family Medicine 01/21/24 01/21/24 Call Center Support Consultant Relationship Specialty Start Date End Date Brooks Calixto DO [address] [place] [address] PCP - General Family Medicine 09/27/23 oCng Rosen, PA [address] [place] [address] Physician Fisher Weir Family Medicine 08/10/22 Call Center Support Consultant Relationship Specialty Start Date End Date Brooks Calixto DO [address] [place] [address] PCP - General Family Medicine 09/27/23 Cong Rosen, PA [address] [place] [address] Physician Fisher Weir Family Medicine 08/10/22 Call Center Support Consultant Relationship Specialty Start Date End Date Brooks Calixto DO [address] [place] [address] PCP - General Family Medicine 09/27/23 Cong Rosen, PA [address] [place] [address] Physician Fisher Weir Family Medicine 08/10/22 Call Center Support Consultant Relationship Specialty Start Date End Date Brooks Calixto DO [address] [place] [address] PCP - General Family Medicine 09/27/23 Cong Rosen, PA [address] [place] [address] Physician Fisher Weir Family Medicine 08/10/22 Call Center Support Consultant Relationship Specialty Start Date End Date Brooks Calixto DO [address] [place] [address] PCP - General Family Medicine 09/27/23 Cong Rosen, PA [address] [place] [address] Physician Fisher Weir Family Medicine 08/10/22 Call Center Support Consultant Relationship Specialty Start Date End Date Brooks Calixto DO [address] [place] [address] PCP - General Family Medicine 09/27/23 Cong Rosen, PA [address] [place] [address] Physician Fisher Weir Family Medicine 08/10/22 Call Center Support Consultant Relationship Specialty Start Date End Date Brooks Calixto DO [address] [place] [address] PCP - General Family Medicine 09/27/23 Cong Rosen, PA [address] [place] [address] Physician Fisher Weir Family Medicine 08/10/22 Call Center Support Consultant Relationship Specialty Start Date End Date Brooks Calixto DO [address] [place] [address] PCP - General Family Medicine 09/27/23 Cong Rosen, PA [address] [place] [address] Physician Fisher Weir Family Medicine 08/10/22 Call Center Support Consultant Relationship Specialty Start Date End Date Brooks Calixto DO [address] [place] [address] PCP - General Family Medicine 09/27/23 Cong Rosen PA [address] [place] [address] Physician Fisher Weir Family Medicine 08/10/22 Call Center Support Consultant Relationship Specialty Start Date End Date Brooks Calixto DO [address] [place] [address] PCP - General Family Medicine 09/27/23 Cong Rosen PA [address] [place] [address] Physician Fisher Weir Family Medicine 08/10/22 Call Center Support Consultant Relationship Specialty Start Date End Date Brooks Calixto DO [address] [place] [address] PCP - General Family Medicine 09/27/23 Cong Rosen PA [address] [place] [address] Physician Fisher Weir Family Medicine 08/10/22 Call Center Support Consultant Relationship Specialty Start Date End Date Brooks Calixto DO [address] [place] [address] PCP - General Family Medicine 09/27/23 Cong Rosen PA [address] [place] [address] Physician Fisher Weir Family Medicine 08/10/22 Call Center Support Consultant Relationship Specialty Start Date End Date Brooks Calixto DO [address] [place] [address] PCP - General Family Medicine 09/27/23 Cong Rosen, PA [address] [place] [address] Physician Fisher Weir Family Medicine 08/10/22 Call Center Support Consultant Relationship Specialty Start Date End Date Brooks Calixto DO [address] [place] [address] PCP - General Family Medicine 09/27/23 Cong Rosen, PA [address] [place] [address] Physician Fisher Weir Family Medicine 08/10/22 Call Center Support Consultant Relationship Specialty Start Date End Date Brooks Calixto DO [address] [place] [address] PCP - General Family Medicine 09/27/23 Cong Rosen, PA [address] [place] [address] Physician Fisher Weir Family Medicine 08/10/22 Call Center Support Consultant Relationship Specialty Start Date End Date Brooks Calixto DO [address] [place] [address] PCP - General Family Medicine 09/27/23 Cong Rosen PA [address] [place] [address] Physician Fisher Weir Family Medicine 08/10/22 Call Center Support Consultant Relationship Specialty Start Date End Date Brooks Calixto DO [address] [place] [address] PCP - General Family Medicine 09/27/23 Cong Rosen, PA [address] [place] [address] Physician Fisher Weir Family Medicine 08/10/22 Call Center Support Consultant Relationship Specialty Start Date End Date Brooks Calixto DO [address] [place] [address] PCP - General Family Medicine 09/27/23 Cong Rosen, PA [address] [place] [address] Physician Fisher Weir Family Medicine 08/10/22 Call Center Support Consultant Relationship Specialty Start Date End Date Brooks Calixto DO [address] [place] [address] PCP - General Family Medicine 09/27/23 Cong Rosen, PA [address] [place] [address] Physician Fisher Weir Family Medicine 08/10/22 Call Center Support Consultant Relationship Specialty Start Date End Date Brooks Calixto DO [address] [place] [address] PCP - General Family Medicine 09/27/23 Cong Rosen PA [address] [place] [address] Physician Fisher Weir Family Medicine 08/10/22 Source Comments (unrecognize d section and content) In the event this informatio n is protected by the Federal Confidentiality of Alcohol and Drug Abuse Patient Records regulations: The Federal rules restrict any use of the information to criminally investigate or prosecute any alcohol or drug abuse patient.[facility] the event this information is protected by the Federal Confidentiality of Alcohol and Drug Abuse Patient Records regulations: The Federal rules restrict any use of the information to criminally investigate or prosecute any alcohol or drug abuse patient.[facility] Goals (unrecognized section and content) Goals [...] BE BASED ON THE PRIMARY CLINICAL RECORDS. [facility]. provides no warranty or guarantee of the accuracy or completeness of information in this document.
[2024-06-29 07:31] VITALS: BP 151/88; PULSE 72; TEMP 36.2; O2SAT 100
[2024-06-29 07:32] LABS: Glucometer 76 mg/dL (74-106)
[2024-06-29 08:26] VITALS: BP 139/65; PULSE 72; O2SAT 98
[2024-06-29 08:27] VITALS: BP 141/70; PULSE 71; O2SAT 100
[2024-06-29] MEDS: BUPIVACAINE HCL 0.25% PF 25 MG/10 ML VIAL 4 ML INJ (08:41)
[2024-06-29] MEDS: LIDOCAINE HCL 2% 400 MG/20 ML MDV 16 ML INJ (08:41)
[2024-06-29] MEDS: METHYLPREDNISOLONE ACETATE 40 MG/ML VIAL 80 MG INJ (08:41)
--- NOTE | 2024-06-29 08:41 | P.ON_ITS ---
Date of procedure: 06/29/24 Pre-op diagnosis: Pain due to lumbar spondylosis without myelopathy Post-op diagnosis: same as pre-op Procedure: Procedure: Bilateral L4-5, L5-S1 radiofrequency ablation Medications: Bupivacaine 0.25% 6cc, lidocaine 2% 6cc, depomedrol 80mg The patient was seen and examined in the preoperative holding area.? The site was marked.? Written informed consent was obtained and placed on the chart.? The patient was brought to the medical procedure unit and placed in the prone position.? A timeout was completed verifying correct patient, procedure, positioning, and special requirements.? The skin overlying the target points, the designated medial branch, were prepped and draped in the usual sterile fashion.? The target point was achieved with a 20-gauge 15 cm with a 10 mm curved active tip radiofrequency cannula under direct fluoroscopic visualizati on.? The needle was inserted at level L4 on the right side. Needle tip position was confirmed with lateral fluoroscopic position.? Motor stimulation was carried out at 2 Hz up to 5 volts with the absence of extremity activity.? This was repeated at level L5, S1 on right side.?? Sensory stimulation was carried out.? Concordant pain was realized at the above- mentioned sites.? Then radiofrequency lesioning was carried out times 90 seconds at 80 degrees times 2 lesions at each level.? The radiofrequency probe was removed prior to cannula removal.? The above-mentioned injectate was placed in 1 mL increments.? The needle was removed. The same procedure, with the same steps, was then completed on the left side at the same levels. Insertion sites were covered.? The patient was taken to the postoperative recovery area and monitored for an appropriate length of time before being found suitable for discharge in the company of a responsible adult. Anesthesia: Local Surgeon: Heaven Rae Pathology: none sent Condition: stable Disposition: no change
== END 2024-06-29 08:48 | disposition home or self-care (01) ==
LOC: SURGOUT 07:04
PROVIDERS: Visit Provider Anesthesiology
DX: M47.816 Spondylosis without myelopathy or radiculopathy, lumbar region (principal); M54.50 Low back pain, unspecified
CPT/HCPCS: 36415; 64635; 64636; 82948; J0665; J1010

== ENCOUNTER 2024-07-29 08:25 | Outpatient (OUT) | payer BC, SELFPAY ==
--- OUTSIDE RECORDS SUMMARY | 2020-03-31 07:30 | XMS_ITS | Continuity of Care Document ---
Author Organization 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, [address] [place] [address], [id number], [place] tel:[phone] COVID [facility] No Information Clem Li. [address] [place], [place], [id number], [place]. tel:[phone] [facility], [address] [place] [address], [id number], tel:[phone] COVID [facility] No Information Clem SINGLETON Reyes. [address], [place], [id number], [place]. tel:[phone] Family History Family Member Type Diagnosis Age At Onset No Information Immunizations Vaccine Date Status Comments Moderna COVID administered Source: New Im munization Record Moderna COVID administered Source: New Im munization Record Payers Payer name Insurance type Covered democrat ID Authoriza tion(s) [employer] CI [id number] [place] [employer] CI [id number] [facility] [id number] Social History Type Description Quantity Date Captured [...]
--- OUTSIDE RECORDS SUMMARY | 2024-07-29 08:29 | XMS_ITS | Clinical Summary ---
Author Organization [facility] Address [address] [place] [address] Phone Care Team Providers Care Medication Aide Name Role Phone Dory Wells Rojelio CHIEF SCIENTIFIC OFFICER-GRID INSPECTOR Primary Care Provider + Social History Tobacco Use Types Packs/Day Years Used Date Smoking Tobacco: Never Assessed Comments Unknown Sex and Gender Information Value Date Recorded Sex Assigned at Not on file Legal Sex Female 1:15 PM EST Gender Identity Not on file Sexual Orientation Not on file Last Filed Vital Signs Vital Sign Reading Time Taken Comments Blood Pressure 150/74 07/28/2021 11:14 AM EDT Pulse 82 07/28/2021 11:14 AM EDT Temperature - - Respiratory Rate - - Oxygen Saturation 95% 07/28/2021 11:14 AM EDT Inhaled Oxygen Concentration - - Weight 92.5 kg (204 lb) 07/28/2021 11:14 AM EDT Height 162.6 cm (5' 4 ) 07/28/2021 11:14 AM EDT Body Mass Index 35.02 07/28/2021 11:14 AM EDT Plan of Treatment Health Maintenance Due Date Last Done Comments CT Colonography 1960 Colonoscopy 1960 Colorectal Cancer Screening 1960 FIT-DNA (Cologuard) 1960 FIT 1960 HIV Screening 1960 Lipid Panel 1960 Sigmoidoscopy 1960 Yearly Adult Physical 1960 MMR Vaccines (1 of 1 - Standard series) 1961 Hepatitis C Screening 1978 Cervical Cancer Screening 1981 HPV/Cotest 1981 Pap Smear 1981 DTaP/Tdap/Td Vaccines (1 - Tdap) 1982 Pneumococcal Vaccine (1 of 1 - PCV) 2010 RSV High Risk: (Elderly (60+) or Population) (1 - Risk 60-74 years 1-dose series) 2020 Mammogram 09/18/2023 09/17/2022, 08/20, 07/19/2021, Additional history exists COVID-19 Vaccine ( season) 2023 01/06/2021, 03/31/2020, 03/03/2020 Influenza Vaccine (Season Ended) 2024 11/29/2022, 11/30/2021, 11/21/2020, Additional history exists Diabetes Screening 07/22/2026 07/23/2023 Zoster Vaccines Completed 12/27/2019, 06/2019, 10/23/2019 HIB Vaccines Aged Out No longer eligi ble based on patient's age to complete this topic HPV Vaccines Aged Out No longer eligi ble based on patient's age to complete this topic Hepatitis A Vaccines Aged Out No long er eligible based on patient's age to complete this topic Hepatitis B Vaccines Aged Out No long er eligible based on patient's age to complete this topic IPV Vaccines Aged Out No longer eligi ble based on patient's age to complete this topic Meningococcal Vaccine Aged Out No emily merary eligible based on patient's age to complete this topic Rotavirus Vaccines Aged Out No longer eligible based on patient's age to complete this topic Insurance [facility] Care Teams Medication Aide Relationship Specialty Start Date End Date Dory Wells APRN-SCARLET [address] [facility] [address] [place] [address] PCP - General 09/09/12
--- OUTSIDE RECORDS SUMMARY | 2024-07-29 08:29 | XMS_ITS | Encounter Summary ---
Author Organization [facility] Address [address] [place] [address] Care Team Providers Care Patient Care Nursing Assistant Name Role Phone Tommy Rosen Unavailable Pipo Calixto DO Primary Care Provider [phone] Sonia Vera RN Unavailable Unavailable Encounter Details Date Type Department Care Team (Late st Contact Info) Description 10/23/2023 Abstract [facility] [address] [place] [phone] Pipo Calixto DO [address] [place] [address] Social History Tobacco Use Types Packs/Day Years Used Date Smoking Tobacco: Never Smokeless Tobacco: Never Alcohol Use Standard Drinks/Week Comments Yes 2 (1 standard drink = 0.6 oz pur e alcohol) Humiliation, Afraid, Rape, and Kick questionnair e Answer Date Recorded Within the last year, have y ou been afraid of your partner or ex-partner? No 09/26/2022 Within the last year, have y ou been humiliated or emotionally abused in other ways by your partner or ex-partner? No Within the last year, have y ou been kicked, hit, slapped, or otherwise physically hurt by your partner or ex-partner? No 09/26/2022 Within the last year, have y ou been raped or forced to have any kind of sexual activity by your partner or ex-partner? No 09/26/2022 Social Connection and Isolation Panel [NHANES] A nswer Date Recorded In a typical week, how many times do you talk on the phone with family, friends, or neighbors? Three times a week 09/26/2022 How often do you get togethe r with friends or relatives? Twice a week 09/26/2022 How often do you attend chur ch or rastafarian services? Patient declined 09/26/2022 Do you belong to any clubs o r organizations such as christianity groups, unions, fraternal or athletic groups, or school groups? No 09/26/2022 How often do you attend meet ings of the clubs or organizations you belong to? Never 09/26/2022 Are you , , di vorced, , never , or living with a partner? 09/26/2022 AUDIT-C Answer Date Recorded Q1: How often do you have a drink containing alc ohol? 2-4 times a month 09/26/2022 Q2: How many drinks containi ng alcohol do you have on a typical day when you are drinking? 1 or 2 09/26/2022 Q3: How often do you have si x or more drinks on one occasion? Never 09/26/2022 Overall Financial Resource Strain (CARDIA) Answe r Date Recorded How hard is it for you to pa y for the very basics like food, housing, medical care, and heating? Not hard at all 09/26/2022 PHQ-2 Answer Date Recorded Patient Health Questionnaire-2 Score 0 09/26/2022 [facility] - Occupational Stress Questionnaire Answer Date Recorded Do you feel stress - tense, restless, nervous, or anxious, or unable to sleep at night because your mind is troubled all the time - these days? To some extent 09/26/2022 Exercise Vital Sign Answer Date Recorde d On average, how many days pe r week do you engage in moderate to strenuous exercise (like a brisk walk)? 5 days 09/26/2022 On average, how many minutes do you engage in exercise at this level? 30 min 09/26/2022 Hunger Vital Sign Answer Date Recorded Within the past 12 months, y ou worried that your food would run out before you got the money to buy more. Never true 09/27/19 23 Within the past 12 months, t he food you bought just didn't last and you didn't have money to get more. Never true 09/26/2022 PRAPARE - Transportation Answer Date Re corded In the past 12 months, has l ack of transportation kept you from medical appointments or from getting medications? No 10/2022 In the past 12 months, has l ack of transportation kept you from meetings, work, or from getting things needed for daily living? No 09/26/2022 Housing Stability Vital Sign Answer Dave e Recorded In the last 12 months, was t here a time when you were not able to pay the mortgage or rent on time? No 09/26/2022 Number of Places Lived in the Last Year Not on f ile 09/26/2022 In the last 12 months, was t here a time when you did not have a steady place to sleep or slept in a m[facility]p (including now)? No 09/26/2022 Comments No Sex and Gender Information Value Date Recorded Sex Assigned at Female 09/11/2022 12:30 PM EDT Legal Sex Female 6:57 PM EDT Gender Identity Female 09/11/2022 12:30 PM EDT Sexual Orientation Straight 09/11/2022 12 :30 PM EDT documented as of this encounter Plan of Treatment Upcoming Encounters Date Type Department Care Team (Late st Contact Info) Description 02/02/2025 8:45 AM EST Office Visit [facility] [address] [place] [phone] Natalee Moe MD [address] [place] [address] documented as of this encounter Visit Diagnoses Not on filedocumented in this encounter Care Teams Patient Care Nursing Assistant Relationship Specialty Start Date End Date Pipo Calixto DO [address] [place] [address] PCP - General Family Medicine 09/27/23 Tommy Rosen PA [address] [place] [address] Physician Stave Block Roller Family Medicine 08/10/22 Sonia Vera, NII Registered Nurse Family Medicine 01/21/24 01/21/24 documented as of this encounter
--- OUTSIDE RECORDS SUMMARY | 2024-07-29 08:29 | XMS_ITS | Encounter Summary ---
Author Organization [facility] Address [address] [facility] [place] [address] Care Team Providers Care Manager Process Improvement Name Role Phone Tommy Rosen Unavailable Sukhwinder Stockton DO Primary Care Provider [phone] Pipo Calixto DO Primary Care Provider [phone] Sonia Vera RN Unavailable Unavailable Encounter Details Date Type Department Care Team (Late st Contact Info) Description 04/25/2023 Abstract [facility] [address] [facility] [address] [place] [phone] Natalee Moe MD [address] [facility] [address] [place] [address] Social History Tobacco Use Types Packs/Day Years [...] week 09/26/2022 How often do you attend [facility] or taoism services? Patient declined 09/26/2022 Do you belong to any clubs o r organizations such as cheondoism groups, unions, fraternal or athletic groups, or [...] Recorded Patient Health Questionnaire-2 Score 0 09/26/2022 [facility] - Occupational Stress Questionnaire Answer Date Recorded [...] place to sleep or slept in a snf (including now)? No 09/26/2022 Comments No Sex [...] DERM [address] [place] [address] Natalee Moe MD [address] [place] [address] documented as of this encounter Visit Diagnoses Not on filedocumented in this encounter Care Teams Manager Process Improvement Relationship Specialty Start Date End Date Sukhwinder Stockton DO [address] [place] [address] PCP - General Family Medicine 11/29/22 09/26/23 Pipo Calixto DO [address] [place] [address] PCP - General Family Medicine 09/27/23 Tommy Rosen PA [address] [place] [address] Physician Roofer Family Medicine 08/10/22 Sonia Vera, RN Registered Nurse Family Medicine 01/21/24 01/21/24 documented as of this encounter
--- OUTSIDE RECORDS SUMMARY | 2024-07-29 08:29 | XMS_ITS | Encounter Summary ---
Author Organization [facility] Address [address] [facility] [place] [address] Care Team Providers Care Pyrotechnic Assembler Name Role Phone Tommy Rosen Unavailable Tommy Rosen Primary Care Provider [phone] Sukhwinder Stockton DO Primary Care Provider [phone] Pipo Calixto DO Primary Care Provider + [phone] Sonia Vera RN Unavailable Unavailable Reason for Visit * Reason Comments Med Refill Encounter Details Date Type Department Care Team (Late st Contact Info) Description 11/09/2022 Refill [facility] FM [address] [facility] [address] [place] [phone] Tommy Rosen PA [address] [facility] [address] [place] [address] Neuralgia and neuritis, unspecified Social History Tobacco Use Types Packs/Day Years [...] 09/26/2022 How often do you attend chur or amish services? Patient declined 09/26/2022 Do you belong to any clubs o r organizations such as pentecostal groups, unions, fraternal or athletic groups, or [...] Recorded Patient Health Questionnaire-2 Score 0 09/26/2022 [facility] [...] place to sleep or slept in a residential (including now)? No 09/26/2022 Comments No Sex and Gender Information Value Date Recorded Sex Assigned at Female 09/11/2022 12:30 PM EDT Legal Sex Female 6:57 PM EDT Gender Identity Female 09/11/2022 12:30 PM EDT Sexual Orientation Straight 09/11/2022 12 :30 PM EDT documented as of this encounter Miscellaneous Notes * Telephone Encounter - Razia Mena MA - 11/13/2022 2:14 PM EDT Called in Rx. documented in this encounter Plan of Treatment Upcoming Encounters Date Type Department Care Team (Late st Contact Info) Description 02/02/2025 8:45 AM EST Office Visit [facility] [address] [place] [phone] Natalee Moe MD [address] [place] [address] documented as of this encounter Visit Diagnoses Diagnosis Neuralgia and neuritis, unspecified documented in this encounter Care Teams Pyrotechnic Assembler Relationship Specialty Start Date End Date Tommy Rosen PA [address] [facility] [address] [place] [address] PCP - General Family Medicine 09/11/22 11/28/22 Sukhwinder Stockton DO [address] [facility] [address] [place] [address] PCP - General Family Medicine 11/29/22 09/26/23 Pipo Calixto DO [address] [address] PCP - General Family Medicine 09/27/23 Tommy Rosen PA [address] [facility] [address] [place] [address] Physician Hand Braille Transcriber Family Medicine 08/10/22 Sonia Vera, RN Registered Nurse Family Medicine 01/21/24 01/21/24 documented as of this encounter
--- OUTSIDE RECORDS SUMMARY | 2024-07-29 08:29 | XMS_ITS | Encounter Summary ---
Author Organization [facility] Address [address] [facility] [place] [address] Care Team Providers Care Vp Public Relations Name Role Phone Tommy Rosen Unavailable Sukhwinder Stockton DO Primary Care Provider [phone] Pipo Calixto DO Primary Care Provider + [phone] Sonia Vera RN Unavailable Unavailable Encounter Details Date Type Department Care Team (Late st Contact Info) Description 09/25/2023 Clinisync Result Encounter [facility] External Department Unsolicited Provider, Generic External Data Social History Tobacco Use Types Packs/Day Years [...] week 09/26/2022 How often do you attend [facility] or bahai services? Patient declined 09/26/2022 Do you belong to any clubs o r organizations such as quaker groups, unions, fraternal or athletic groups, or [...] Recorded Patient Health Questionnaire-2 Score 0 09/26/2022 [facility] - [facility]ational Stress Questionnaire Answer Date [...] place to sleep or slept in a custodial (including now)? No 09/26/2022 Comments No Sex [...] DERM [address] [place] [address] Natalee Moe MD [address] [place] [address] documented as of this encounter Procedures Procedure Name Priority Date/Time Associated Diagnosis Comments [facility] US CAROTID ARTERY DUPLEX BILATERAL 09/25/2023 9:40 AM EDT documented in this encounter Results * [facility] US CAROTID ARTERY DUPLEX BILATERAL (09/25/2023 9:40 AM EDT) Anatomical Region Laterality Modality Other 09/25/2023 9:40 AM EDT Narrative 09/25/2023 11:25 AM EDT Preliminary Cardiology Report [facility] [address] [place] [address] Preliminary Vascular Lab Report [facility] US CAROTID ARTERY DUPLEX BILATERAL Patient Name: CAROLYNN Wilburn [id number] Physician: Study Date: 09/25/2023 Ordering [id number] JACK BARBOSA Provider: MRN/PID: [id number] Fellow: Technologist: Carolynn Olvera RVT, RDMS Date of : 1960 Technologist 2: Gender: F Admission Outpatient Location [facility] Status: Performed: Diagnosis/ICD: Occlusion and stenosis of bilateral carotid arteries-I65.23 Indication: Carotid Occlusion/Stenosis w/o infarct CPT Codes: 44488 Cerebrovascular Carotid Duplex scan complete Pertinent History: Carotid surgery. RIGHT CEA. PRELIMINARY CONCLUSIONS: Right Carotid: Findings are consistent with [...] This was seen on the previous exam. Imaging & Doppler Findings: Right Plaque Morph: [...] Proximal 140 cm/s Right ICA/CCA Ratio 2.1 VASCULAR PRELIMINARY REPORT completed by Carolynn Olvera RVT on 09/25/2023 at 11:25:07 AM Final Procedure Note Radiology, Radiologist, - 09/25/2023 Preliminary Cardiology Report [facility] [address] [facility] [place] [address] Preliminary V[facility] Lab Report [facility] CAROTID ARTERY DUPLEX BILATERAL Patient Name: CAROLYNN Wilburn [address] [place] Physician: Study Date: 09/25/2023 Ordering [id number] JACK MACIEL Provider: MRN/PID: [id number] Fellow: Technologist: Carolynn Tejeda RDMS Date of : 1960 Technologist 2: Gender: F Admission Outpatient Location [facility] Status: Performed: Diagnosis/ICD: Occlusion and stenosis of bilateral carotidarteries-I65.23 Indication: Carotid Occlusion/Stenosis w/o infarct CPT Codes: 37595 Cerebrovascular Carotid Duplex scan complete Pertinent History: Carotid surgery. RIGHT CEA. PRELIMINARY CONCLUSIONS: Right Carotid: Findings are consistent with less than 50% stenosis of theright proximal internal carotid artery. Laminar flow seen by colorDoppler. Right external carotid artery appears patent with no evidence ofstenosis. No evidence of hemodynamically significant stenosis of the rightcommon carotid artery. The right vertebral artery is patent with antegradeflow. No evidence of hemodynamically significant stenosis in the rightsubclavian artery. Left Carotid: Findings are consistent with an occlusion of the leftinternal carotid artery. There is a short segment of flow in the rightICA. This was seen on the previous exam. Left external carotid arteryappears patent with no evidence of stenosis. No evidence ofhemodynamically significant stenosis of the left common carotid artery.The left vertebral artery is patent with antegrade flow. No evidence ofhemodynamically significant stenosis in the left subclavian artery. Endarterectomy: Patent right carotid endarterectomy site followingendarterectomy. Additional Findings: There is a short segment of flow in the left ICA. This was seen on theprevious exam. Imaging & Doppler Findings: Right Plaque Morph: No plaque identified in the right carotid artery. Left Plaque Morph: The proximal left internal carotid artery demonstratessmooth and homogenous plaque. The mid left internal carotid arterydemonstrates smooth and homogenous plaque. The distal left internalcarotid artery demonstrates smooth and homogenous plaque. Right [...] Proximal 140 cm/s Right ICA/CCA Ratio 2.1 VASCULAR PRELIMINARY REPORT completed by Carolynn Olvera Lena on 09/25/2023 at 11:25:07 AM Final Generic External Data Provider [facility] Final Result documented in this encounter Visit Diagnoses Not on filedocumented in this encounter Care Teams Vp Public Relations Relationship Specialty Start Date End Date Sukhwinder Stockton DO [address] [place] [address] PCP - General Family Medicine 11/29/22 09/26/23 Pipo Calixto DO [address] [place] [address] PCP - General Family Medicine 09/27/23 Tommy Rosen PA [address] [place] [address] Physician Limo Driver Family Medicine 08/10/22 Sonia Vera, RN Registered Nurse Family Medicine 01/21/24 01/21/24 documented as of this encounter
--- OUTSIDE RECORDS SUMMARY | 2024-07-29 08:29 | XMS_ITS | Encounter Summary ---
Author Organization [facility] Address [address] [facility] [place] [address] Care Team Providers Care Systems Coordinator Name Role Phone Tommy Rosen Unavailable Pipo Calixto DO Primary Care Provider [phone] Sonia Vera RN Unavailable Unavailable Encounter Details Date Type Department Care Team (Late st Contact Info) Description 12/20/2023 External Result Encounter [facility] External Department Unsolicited Pipo Calixto DO [address] [place] [address] Social History Tobacco Use Types Packs/Day Years [...] How often do you attend chur or gnosticism services? Patient declined 09/26/2022 Do you belong to any clubs o r organizations such as baptist groups, unions, fraternal or athletic groups, or [...] Recorded Patient Health Questionnaire-2 Score 0 09/26/2022 [facility] - Occupational Stress [...] place to sleep or slept in a halfway (including now)? No 09/26/2022 Comments No Sex [...] Office Visit [facility] [address] [place] [address] Natalee Moe MD [address] [facility] [address] [place] [address] documented as of this encounter Procedures Procedure Name Priority Date/Time Associated Diagnosis Comments TRANSTHORACIC ECHO (TTE) COMPLETE 12/20/2023 9:36 AM EDT documented in this encounter Results * Transthoracic echo (TTE) complete (12/20/2023 9:36 AM EDT) Anatomical Region Laterality Modality Heart Ultrasound 12/20/2023 9:36 AM EDT Narrative 12/20/2023 12:56 PM EDT [facility] [place] [address] Echocardiogram Signed Patient: Carolynn Ho MR#: [id number] : 1960 Acct:[id number] Age/Sex: 63 / F ADM Date: 12/20/23 Loc: Room: Type: [facility] Attending Dr: Pipo Calixto DO Ordering Provider: Pipo Calixto DO Date of Service: 12/20/23/ ECH/ECH echo transthoracic: Murmur, Edema Copies to: MD Pipo Hagen DO Carolynn Alcantar AM Patient Location: : 1960 Gender: Female (MM/DD/YYYY) Age: 63 Years Ordering Physician: Pipo Calixto Height: 64.96 in Weight: 220.004 lb Performed By: Liyah Lutz BSA: 2.06 m2 BP: 170 / 90 mmHg HR: 64 bpm Reason For Study: Murmur, Edema + + Interpretation Summary Ejection Fraction = 60-65%. The [...] VTI: 53.0 cm MV dec slope: 711.8 cm/sec ALEAH(I,D): 2.21 cm2 E/E' lat: 10.1 ALEAH(V,D): 2.05 cm2 E/E' med: 12.8 TV max P.0 mmHg LV V1 max: 95.7 cm/sec TR max brandan: 238.3 cm/sec LV V1 max P.7 mmHg TR max P.7 mmHg LV V1 mean: 68.5 cm/sec RAP systole: 3.0 mmHg LV V1 mean P.13 mmHg LV V1 VTI: 25.9 cm + + + + + + + : Electronically : : : : signed by: Sukhwinder : : Lexx : : : : : : on: 12/20/2023, : : 12:56 PM : Transcribed By: SCV Performed At: 12/20/23 0936 Signed By: Sukhwinder Hallman MD 12/20/23 1256 Procedure Note Verito aHllman MD - 12/20/2023 [facility] [place] [address] Echocardiogram Signed Patient: Carolynn Ho [facility]#: [id number] : 1Acct:[id number] Age/Sex: 63 / FADM Date: 12/20/23 Loc: Room:Type: [facility] Attending Dr: Pipo Calixto DO Ordering Provider: Pipo Calixto DO Date of Service: 12/20/23/ [facility] echo transthoracic: Murmur, Edema Copies to: MD Pipo Hagen Harjinder Barnard AM Patient Location: : 1960 Gender: Female (MM/DD/YYYY) Age: 63 Years Ordering Physician: Pipo Calixto Height: 64.96 in Weight: 220.004 lb Performed By: Liyah Lutz BSA: 2.06 m2 BP: 170 / 90 mmHg HR: 64 bpm Reason For Study: Murmur, Edema + + Interpretation Summary Ejection Fraction = 60-65%. The [...] VTI: 53.0 cm MV dec slope: 711.8 cm/sec ALEAH(I,D): 2.21 cm2 E/E' lat: 10.1 ALEAH(V,D): 2.05 cm2 E/E' med: 12.8 TV max P.0 mmHg LV V1 max: 95.7 cm/sec TR max brandan: 238.3 cm/sec LV V1 max P.7 mmHg TR max P.7 mmHg LV V1 mean: 68.5 cm/sec RAP systole: 3.0 mmHg LV V1 mean P.13 mmHg LV V1 VTI: 25.9 cm + + + + + + + : Electronically: :: : signed by: Sukhwinder: : Lexx: :: :: : on: 12/20/2023,: : 12:56 PM: Transcribed By: CLARK Performed At: 12/20/23 0936 Signed By: Sukhwinder Hallman MD 12/20/23 1256 us Pipo Calixto DO CV ECHO PROCEDURES Final Res ult documented in this encounter Visit Diagnoses Not on filedocumented in this encounter Care Teams Systems Coordinator Relationship Specialty Start Date End Date Pipo Calixto DO [address] [address] PCP - General Family Medicine 09/27/23 Tommy Rosen PA [address] [place] [address] Physician Internal Grinder Set Up Operator Family Medicine 08/10/22 Sonia Vera, RN Registered Nurse Family Medicine 01/21/24 01/21/24 documented as of this encounter
--- OUTSIDE RECORDS SUMMARY | 2024-07-29 08:29 | XMS_ITS | Encounter Summary ---
Author Organization [facility] Address [address] [place] [address] Care Team Providers Care Crop Duster Helper Name Role Phone Tommy Rosen PA-C Unavailable [phone] Pipo Calixto DO Primary Care Provider [phone] Vaibhav Hatch MD Unavailable [phone] Source Comments In the event this information is protected by the Federal Confidentiality of Alcohol and Drug AbusePatient Records regulations: The Federal rules restrict any use of the information to criminally investigate or prosecute any alcohol or drug abuse patient.[facility] Encounter Details Date Type Department Care Team (Late st Contact Info) Description 12/31/2023 Patient Msg Spine [place] [address] [place] [address] Provider, [facility] ACTION REQUIRED: Skin Preparation before your surgery Social History Tobacco Use Types Packs/Day Years Used Date Smoking Tobacco: Never Smokeless Tobacco: Never Alcohol Use Standard Drinks/Week Comments Not Currently 0 (1 standard drink = 0.6 oz pur e alcohol) socialy [facility] Utilities Answer Date Recorded In the past 12 months has [employer] electric, gas, oil, or water company threatened to shut off services in your home? No 01/02/2024 Hunger Vital Sign Answer Date Recorded Within the past 12 months, y ou worried that your food would run out before you got the money to buy more. Never true 01/02/20 24 Within the past 12 months, t he food you bought just didn't last and you didn't have money to get more. Never true 01/02/2024 PRAPARE - Transportation Answer Date Re corded In the past 12 months, has l ack of transportation kept you from medical appointments or from getting medications? No 12/19 In the past 12 months, has l ack of transportation kept you from meetings, work, or from getting things needed for daily living? No 01/02/2024 Housing Stability Vital Sign Answer Dave e Recorded In the last 12 months, was t here a time when you were not able to pay the mortgage or rent on time? No 01/02/2024 Number of Times Moved in the Last Year Not on fi le 01/02/2024 At any time in the past 12 m [facility], were you homeless or living in a senior living (including now)? No 01/02/2024 Area Deprivation Index Answer Date Primo rded National Score (1-100), lower number is lower ri sk 74 11/18/2023 State Score (1-10), lower number is lower risk 6 11/18/2023 Data from: https://www.neighborhoodatlas.medicine.[place].edu/. Last address used for calculation [address] [facility] 11/18/2023 Comments No Sex and Gender Information Value Date Recorded Sex Assigned at Female 12/10/2023 9:39 AM EDT Legal Sex Female 9:23 AM EDT Gender Identity Female 12/10/2023 9:39 AM EDT Sexual Orientation Straight 12/10/2023 9: 39 AM EDT documented as of this encounter Plan of Treatment Not on file documented as of this encounter Goals Goal Patient Goal Type Associated Problems Recent Progress Patient-Stated? Author Blood Pressure < 130/80 Blood Pressure 124/59(2023 11:04 AM EST) No Tab Salazar MD documented as of this encounter Visit Diagnoses Not on filedocumented in this encounter Care Teams Crop Duster Helper Relationship Specialty Start Date End Date Pipo Calixto DO [address] [place] [address] PCP - General Family Medicine 09/27/23 Tommy Rosen PA-C [address] [place] [address] Physician Visitor Services Information Assistant 06/18/23 [place] [address] [place] [phone] Surgeon Orthopedics 11/19/23 documented as of this encounter
--- OUTSIDE RECORDS SUMMARY | 2024-07-29 08:29 | XMS_ITS | Encounter Summary ---
Author Organization [facility] Address [address] [place] [address] Care Team Providers Care Drilling Manager Name Role Phone Tommy Rosen Unavailable Pipo Calixto DO Primary Care Provider [phone] Sonia Vera RN Unavailable Unavailable Encounter Details Date Type Department Care Team (Late st Contact Info) Description 12/20/2023 Abstract [facility] [address] [place] [phone] Pipo Calixto DO [address] [place] [address] Social History Tobacco Use Types Packs/Day [...] often do you attend chur ch or anabaptism services? Patient declined 09/26/2022 Do you belong to any clubs o r organizations such as mandaeism groups, unions, fraternal or athletic groups, or [...] Recorded Patient Health Questionnaire-2 Score 0 09/26/2022 [facility] - Occupational Stress Questionnaire Answer Date [...] place to sleep or slept in a mcc (including now)? No 09/26/2022 Comments No Sex [...] [address] [place] [phone] Natalee Moe MD [address] [place] [address] documented as of this encounter Visit Diagnoses Not on filedocumented in this encounter Care Teams Drilling Manager Relationship Specialty Start Date End Date Pipo Calixto DO [address] [place] [address] PCP - General Family Medicine 09/27/23 Tommy Rosen PA [address] [place] [address] Physician Election Clerk Family Medicine 08/10/22 Sonia Vera, NII Registered Nurse Family Medicine 01/21/24 01/21/24 documented as of this encounter
--- OUTSIDE RECORDS SUMMARY | 2024-07-29 08:29 | XMS_ITS | Encounter Summary ---
Author Organization [facility] Address [address] [place] [address] Phone Care Team Providers Care Property Developer Name Role Phone Dory Wells Primary Care Provider + Encounter Details Date Type Department Care Team (Late st Contact Info) Description 11/19/2023 Community Care Management [facility] Orthopaedic LOYAL3, [facility]. [address] [place] [address] [facility] Axel PhysicianMD [address] [place], [place] [phone] Social History Tobacco Use Types Packs/Day Years Used Date Smoking Tobacco: Never Assessed Comments Unknown Sex and Gender Information Value Date Recorded Sex Assigned at Not on file Legal Sex Female 1:15 PM EST Gender Identity Not on file Sexual Orientation Not on file documented as of this encounter Plan of Treatment Not on file documented as of this encounter Visit Diagnoses Not on filedocumented in this encounter Care Teams Property Developer Relationship Specialty Start Date End Date Dory Wells APRN-CNP [address] [place] [address] PCP - General 09/09/12 documented as of this encounter
--- OUTSIDE RECORDS SUMMARY | 2024-07-29 08:29 | XMS_ITS | Encounter Summary ---
Author Organization [facility] Address [address] [place] [address] Care Team Providers Care Nursing Program Manager Name Role Phone Tommy Rosen Unavailable Tommy Rosen Primary Care Provider [phone] Sukhwinder Stockton DO Primary Care Provider [phone] Pipo Calixto DO Primary Care Provider [phone] Sonia Vera RN Unavailable Unavailable Encounter Details Date Type Department Care Team (Late st Contact Info) Description 09/26/2022 Abstract [facility] [address] [facility] [address] [place] [phone] Tommy Rosen PA [address] [facility] [address] [place] [address] Social History Tobacco Use Types Packs/Day Years Used Date Smoking Tobacco: Never Smokeless Tobacco: Never Tobacco Cessation:Counseling Given: Not Answered Alcohol Use Standard Drinks/Week Comments Yes 2 [...] How often do you attend chur or jainism services? Patient declined 09/26/2022 Do you belong to any clubs o r organizations such as scientologist groups, unions, fraternal or athletic groups, or [...] Recorded Patient Health Questionnaire-2 Score 0 09/26/2022 [facility] of Occupat ional Health - Occupational Stress [...] place to sleep or slept in a [place] (including now)? No 09/26/2022 Comments No Sex and Gender Information Value Date Recorded Sex Assigned at Female 09/11/2022 12:30 PM EDT Legal Sex Female 6:57 PM EDT Gender Identity Female 09/11/2022 12:30 PM EDT Sexual Orientation Straight 09/11/2022 12 :30 PM EDT COVID-19 Exposure Response Date Recorded In the last 10 days, have yo u been in contact with someone who was confirmed or suspected to have Coronavirus/COVID-19? No / Unsure 09/26/2022 10:28 AM EDT documented as of this encounter Functional Status * Audit-C Score Answer Date of Assessment Author 2 09/26/2022 10:26 AM EDT Faisal Generic * Q1: How often do you have a drink containing alcohol? Answer Date of Assessment Author 2-4 times a month 09/26/2022 10:26 AM EDT Marvin payne Generic * Q2: How many drinks containing alcohol do you have on a typical day when you are drinking? Answer Date of Assessment Author 1 or 2 09/26/2022 10:26 AM EDT Mychart, Generic * Q3: How often do you have six or more drinks on one occasion? Answer Date of Assessment Author Never 09/26/2022 10:26 AM EDT Mychart, Generic * Over the past 2 weeks, how often have you been bothered by any of the following problems? Question Answer Date of Assessment Author Little interest or pleasure in doing things Not at all 09/26/2022 1:48 PM EDT Kel Redd MA Feeling down, depressed, or hopeless Not at all 09/26/2022 1:48 PM EDT Kel Redd MA Patient Health Questionnaire -2 Score 0 09/26/2022 1:48 PM EDT Kel Redd MA documented as of this encounter Plan of Treatment Upcoming Encounters Date Type Department Care Team (Late st Contact Info) Description 02/02/2025 8:45 AM EST Office Visit [facility] [address] [place] [address] Natalee Moe MD [address] [place] [address] documented as of this encounter Visit Diagnoses Not on filedocumented in this encounter Care Teams Nursing Program Manager Relationship Specialty Start Date End Date Tommy Rosen PA [address] [place] [address] PCP - General Family Medicine 09/11/22 11/28/22 Sukhwinder Stockton DO [address] [place] [address] PCP - General Family Medicine 11/29/22 09/26/23 Pipo Calixto DO [address] [place] [address] PCP - General Family Medicine 09/27/23 Tommy Rosen PA [address] [place] [address] Physician Park Worker Family Medicine 08/10/22 Sonia Vera, RN Registered Nurse Family Medicine 01/21/24 01/21/24 documented as of this encounter
--- OUTSIDE RECORDS SUMMARY | 2024-07-29 08:29 | XMS_ITS | Clinical Summary ---
Author Organization [facility] Address [facility] [place] [address] Care Team Providers Care Whipped Topping Supervisor Name Role Phone Tommy Rosen PA-C Unavailable [phone] Pipo Calixto DO Primary Care Provider Vaibhav Hatch MD Unavailable [phone] Allergies Active Allergy Reactions Criticality Noted Date Comments Penicillins Anaphylaxis High 11/18/2023 Sulfa (Sulfonamide Antibiotics) Hives 10/21 Medications levothyroxine (SYNTHROID) 150 mcg tablet Take 150 mcg by mouth daily before breakfast. Active bisoprolol-hyd rochlorothiazi de (ZIAC) 5-6.25 mg per tablet Take 1 tablet by mouth once daily. Active atorvastatin (LIPITOR) 80 mg tablet Take 80 mg by mouth once daily. Active ALPRAZolam (XANAX) 0.25 mg tablet Take 0.25 mg by mouth at bedtime as needed. Active aspirin, enteric coated (ASPIRIN, ENTERIC COATED) 81 mg EC tablet Take 81 mg by mouth once daily. Active semaglutide (OZEMPIC) 0.25 mg or 0.5 mg(2 mg/1.5 mL) pen Inject 0.25 mg subcutaneously one time a week. Injections on Sundays Last injection as 12/08/2023 Active acyclovir (ZOVIRAX) 400 mg tablet 6 Active baclofen 10 mg tablet 4 Active hydroCHLOROthi azide 25 mg tablet 25 mg. 4 Active Cinnamon Bark 500 mg cap Take 500 mg by mouth. Active clopidogrel (PLAVIX) 75 mg tablet 7 Active Coenzyme Q10 200 mg cap Take 1 capsule by mouth. Active diclofenac (VOLTAREN) 1 % topical gel Apply 4 g to affected area. 4 Active DULoxetine (CYMBALTA) 30 mg capsule 4 Active furosemide (LASIX) 40 mg tablet 4 Active KLOR-CON M10 10 mEq tablet 4 Active Carmen-3 Fatty Acids, FISH OIL, 360-1,200 mg cap Take 1 capsule by mouth. Active pregabalin (LYRICA) 300 mg capsule Active cholecalcifero l, vitamin D3, (VITAMIN D3 ORAL) Take 125 mcg by mouth. Active Glucosamine Sulfate (GLUCOSAMINE) 500 mg tab Take 1 tablet by mouth two times a day. 1500 mg chondroitin sulfate 1200mg sodium Active acetaminophen (TYLENOL ARTHRITIS ORAL) Take by mouth. Activ e Active Problems Problem Noted Date Diagnosed Date S/P total knee arthroplasty, left 01/02/2024 Cerebrovascular accident (CVA) due to embolism 1 03/02/2023 Stenosis of right carotid artery 12/11/2023 Hypothyroidism 12/11/2023 Primary hypertension 12/11/2023 Obesity, Class II, BMI 35-39.9 12/11/2023 Prediabetes 12/11/2023 History of CVA (cerebrovascular accident) 2023 Factor V Leiden 12/11/2023 Murmur 12/11/2023 YUAN (obstructive sleep apnea) 12/11/2023 Resolved Problems Problem Noted Date Diagnosed Date Resolved Date History of penicillin allergy 12/11/2023 12/11/2023 Family History Medical History Relation Comments Carotid Disease Father Factor 5 Leiden Father Colon Cancer Mother Factor 5 Leiden Mother Relation Status Comments Father Mother Social History Tobacco Use Types Packs/Day Years Used Date Smoking Tobacco: Never Smokeless Tobacco: Never Tobacco Cessation:Counseling Given: Not Answered Alcohol Use Standard Drinks/Week Comments Not Currently 0 (1 standard drink = 0.6 oz pur e alcohol) [facility] Utilities Answer Date Recorded In the past 12 months has e [facility], gas, oil, or water [employer] threatened to shut off services in your [...] any time in the past 12 m onths, were you homeless or living in a alf (including now)? No 01/02/2024 Area Deprivation Index Answer Date Primo rded National Score (1-100), lower number is lower ri sk 74 11/18/2023 State Score (1-10), lower number is lower risk 6 11/18/2023 Data from: https://www.neighborhoodatlas.medicine.[facility].edu/. Last address used for calculation [address] 11/18/2023 Comments No Sex and Gender Information Value Date Recorded Sex Assigned at Female 12/10/2023 9:39 AM EDT Legal Sex Female 9:23 AM EDT Gender Identity Female 12/10/2023 9:39 AM EDT Sexual Orientation Straight 12/10/2023 9: 39 AM EDT Last Filed Vital Signs Vital Sign Reading Time Taken Comments Blood Pressure 124/59 01/02/2024 11:04 AM EST Pulse 70 01/02/2024 11:04 AM EST Temperature 36.7 C (98.1 F) 01/02/2024 11:04 AM EST Respiratory Rate 16 01/02/2024 7:27 AM EST Oxygen Saturation 99% 01/02/2024 11:04 AM EST Inhaled Oxygen Concentration - - Weight 103.9 kg (229 lb) 01/01/2024 4:47 PM EST Height 162.6 cm (5' 4 ) 01/01/2024 4:47 PM EST Body Mass Index 39.31 01/01/2024 4:47 PM EST Plan of Treatment Health Maintenance Due Date Last Done Comments Annual PCP Team Chronic Dise ase Visit 1978 Anxiety Screening 1978 Depression Screening 1978 HIV Screening 1978 Hepatitis C Screening 1978 DTaP,Tdap,Td Vaccine (1 - Tdap) 05/26/1979 Cervical Cancer Screening 1981 CT Colonography 2005 Cologuard (FIT-DNA) 2005 Colonoscopy 2005 Colorectal Cancer Screening 2005 Fecal Occult Blood 2005 Lipid Screening 2005 Sigmoidoscopy 2005 Pneumococcal Vaccine: 50+ (1 of 1 - PCV) 2010 RSV Vaccine (1 - Risk 60-74 years 1-dose series) 2020 Covid-19 Vaccine (4 - 2023-2 5 season) 2023 01/06/2021, 03/31/2020, 03/03/2020 Influenza Vaccine (Season Ended) 2024 11/29/2022, 11/30/2021, 11/21/2020, Additional history exists Mammogram Screening 12/11/2024 12/12/2023, 12/12/2023, 09/17/2022, Additional history exists Diabetes Screening 01/01/2027 01/02/2024, 1 , 12/11/2023, Additional history exists Shingrix Vaccine Completed 12/27/2019, 06/2019, 10/23/2019 Goals Goal Patient Goal Type Associated Problems Recent Progress Patient-Stated? Author Blood Pressure < 130/80 Blood Pressure 124/59(2023 11:04 AM EST) No Tab Salazar MD Medical Devices Implanted Type Area Heavy Forging Machine Operator Device Identifier Shelf Expiration Date Model / Serial / Lot Insert Triathlon 3 9mm Tibial Bearing Cruciate Retain Sterile Knee - [id number] Implanted:Qty: 1 on 01/01/2024 at [facility] Joint - Knee Right: Bone - Knee [facility] 07/22/2028 [id number] / / [id number] Baseplate Triathalon 3 Tritanium 44mm 67mm Tibial Sterile Latex Free - [id number] Implanted:Qty: 1 on 01/01/2024 at [facility] Joint - Knee Right: Bone - Knee [facility] 08/17/2028 [id number] / / [id number] Component Triathlon 3 Pa Femoral Cruciate Retain Bead Knee Right - [id number] Implanted:Qty: 1 on 01/01/2024 at [facility] Joint - Knee Right: Bone - Knee [facility] 11/12/2028 [id number] / / [id number] Component 32mm Tritanium 10mm Patellar Asymmetric - [id number] Implanted:Qty: 1 on 01/01/2024 at [facility] Joint - Knee Right: Bone - Knee [facility] 09/24/2028 [id number] / / [id number] Procedures Procedure Name Priority Date/Time Associated Diagnosis Comments BASIC METABOLIC PANEL Routine 01/02/2024 3:57 AM EST from Last 3 Months or Most Recently Relevant to Health Maintenance Results * (ABNORMAL) BASIC METABOLIC PANEL (01/02/2024 3:57 AM EST) [facility] Glucose 152(H) 74 - 99 mg/dL 01/02/2024 5:30 AM EST [facility] Comment: The [place] Diabetes Association (ADA) provides guidance for cutoff [...] Standards of Medical Care in Diabetes 2016, [place] Diabetes Association. Diabetes Care. 2016.39(Suppl 1). BUN 21 7 - 21 mg/dL 01/02/2024 5:30 AM EST [facility] Creatinine 0.85 0.58 - 0.96 mg/dL 01/02/2024 5:30 AM [facility] Sodium 141 136 - 144 mmol/L 01/02/2024 5:30 AM [facility] Potassium 3.5(L) 3.7 - 5.1 mmol/L 01/02/2024 5:30 AM [facility] Chloride 103 98 - 107 mmol/L 01/02/2024 5:30 AM [facility] CO2 28 22 - 30 mmol/L 01/02/2024 5:30 AM [facility] Anion Gap 10 8 - 15 mmol/L 01/02/2024 5:30 AM [facility] Calcium, Total 9.2 8.5 - 10.2 mg/dL 01/02/2024 5:30 AM [facility] Estimated Glomerular Filtration Rate 77 >=60 mL/min/1. 73m 01/02/2024 5:30 AM [facility] Comment:Estimated Glomerular Filtration Rate (eGFR) is calculated using the 2020 CKD-EPI creatinine equation. This equation utilizes serum creatinine, sex, and age as parameters. The creatinine assay has traceable calibration to isotope dilution- mass spectrometry. Refer to KDIGO guidelines for clinical interpretation. In patients with unstable renal function, e.g. those with acute kidney injury, the eGFR may not accurately reflect actual GFR. Blood BLOOD SPECIMEN / Unknown Venipuncture / Unknown 01/02/2024 3:57 AM EST 01/02/2024 4:52 AM EST us Vaibhav Hatch MD LABORATORY Final Re sult [facility] [address] [place] [address], from Last 3 Months or Most Recently Relevant to Health Maintenance Insurance [place] [employer] P[employer] Member Subscriber Plan / Payer (Ef fective 2022-Present) Name:Carolynn Givens Member ID:[id number] Relation to Subscriber:Self Name:Carolynn Givens Subscriber ID:[id number] Payer ID:[id number] (NA) Type:PPO Address: [facility] [id number] [place] [id number] Care Teams Whipped Topping Supervisor Relationship Specialty Start Date End Date Pipo Calixto DO [address] [place] [address] PCP - General Family Medicine 09/27/23 Tommy Rosen, PAKathiaC [address] [place] [address] Physician Blow Machine Tender Starch Spraying 06/18/23 [place] [address] [place] [address] Surgeon Orthopedics 11/19/23
--- OUTSIDE RECORDS SUMMARY | 2024-07-29 08:29 | XMS_ITS | Encounter Summary ---
Author Organization [facility] Address [address] [place] [address] Care Team Providers Care Paste Mixing Supervisor Name Role Phone Tommy Rosen PA-C Unavailable [phone] Pipo Calixto DO Primary Care Provider [phone] Vaibhav Hatch MD Unavailable [phone] Source Comments In the event this information is protected by the Federal Confidentiality of Alcohol and Drug AbusePatient Records regulations: The Federal rules restrict any use of the information to criminally investigate or prosecute any alcohol or drug abuse patient.[facility] Encounter Details Date Type Department Care Team (Late st Contact Info) Description 12/18/2023 Patient Msg [facility] [place] [address] [place] [address] Provider, [facility]cf Important Reminder for Preparing Your Skin for Surgery Social History Tobacco Use Types Packs/Day Years Used Date Smoking Tobacco: Never Smokeless Tobacco: Never Alcohol Use Standard Drinks/Week Comments Not Currently 0 (1 standard drink = 0.6 oz pur e alcohol) social Area Deprivation Index Answer Date Primo rded National Score (1-100), lower number is lower ri sk 74 11/18/2023 State Score (1-10), lower number is lower risk 6 11/18/2023 Data from: https://www.neighborhoodatlas.[facility].edu/. Last address used for calculation [address] 11/18/2023 Comments No Sex and Gender Information [...] on filedocumented in this encounter Care Teams Paste Mixing Supervisor Relationship Specialty Start Date End Date Pipo Calixto DO [address] [place] [address] PCP - General Family Medicine 09/27/23 Tommy Rosen, PA-C [address] [place] [address] Physician Communication Engineer 06/18/23 [place] [address] [place] [id number] Surgeon Orthopedics 11/19/23 documented as of this encounter
--- OUTSIDE RECORDS SUMMARY | 2024-07-29 08:29 | XMS_ITS ---
Continuity of Care Document (CCD) Created on: July 29, 2024 Carolynn Givens External Reference #: [id number] : [id number] Sex: Female Author Organization [facility] Address [address] [address] [place] [address] Phone [phone] Care Team Providers Care Pulley Maintainer Name Role Phone VAIBHAV JOSEPH M.D. Care Team Information Receiv er Unavailable Pipo Calixto M.D. Primary Care Physician Un available Problems Active Problems Provider Date Contracture of knee joint Vaibhav Joseph M.D. O nset: 02/20/2024 Arthroplasty of knee Vaibhav Joseph M.D. Onset: 01/23/2024 Transient cerebral ischemia Vaibhav Joseph M.D. Onset: 11/22/2023 Localized, primary osteoarthritis Vaibhav Joseph M.D. Onset: 11/22/2023 Allergies and adverse reactions Active Allergies Criticality Reaction Severity Comments Date Sulfa Unable to assess criticality 11/22/2023 Penicillin Unable to assess criticality 11/22/2023 Medications Active Medications SIG Qnty Indications Ordering Provider Date Klor-Con [id number] Tablets ER Take 1 Tablet (10 Meq) By Mouth Daily as Needed (On Days When Lasix Is Taken) DO Unknown Dewxjagn59nr Tablets Take 1 Tablet By Mouth In The Morning, 1 Tablet In The Evening And 1 Tablet AT B Unknown Ozempic (0.25 Or 0.5 MG/Dose)2mg/3ML Solution Pen-Inject Please See Attached For Detailed Directions Unknown Hlindedgri25wd Tablets Take 1 Tablet By Mouth Daily as Needed (Lower Extremity Edema) Unknown Duloxetine QRY26ub Caps DR Part Take 1 Capsule By Mouth In The Morning. DO Not Crush Or Chew. Unknown Alprazolam0.5mg Tablets Take 1 Tablet (0.5 MG) By Mouth as Needed AT Bedtime For Anxiety Unknown Oonslbels177qw Tablets Take 1 Tablet By Mouth Every Day Unknown Atorvastatin Zrhzuhv96lc Tablets Take 1 Tablet By Mouth AT Bedtime Unknown Xwporucolxvzvtppkox30 mg Tablets qd Unknown Clopidogrel Nrpdbvaek80ff Tablets Take 1 Tablet By Mouth Every Day Unknown Bisoprolol Fumarate/Hydrochlorot hiazide2.5-6.25mg Tablets Take 1 Tablet By Mouth Every Day Unknown Bizfqjwzxr253kn Capsules Take 1 Capsule By Mouth In The Morning And AT Bedtime Unknown Awmxanrfl970sqg Tablets Take 1 Tablet By Mouth Every Day Unknown
--- OUTSIDE RECORDS SUMMARY | 2024-07-29 08:29 | XMS_ITS | Encounter Summary ---
Author Organization [facility] Address [address] [place] [address] Phone Care Team Providers Care Airway Traffic Controller Name Role Phone Dory Wells Primary Care Provider + Encounter Details Date Type Department Care Team (Late st Contact Info) Description 09/20/2023 Scanned Document [facility] [address] [place] [address] Salma Guzman MD [address] [facility] [address] [place] [address] Social History Tobacco Use Types Packs/Day Years [...] on filedocumented in this encounter Care Teams Airway Traffic Controller Relationship Specialty Start Date End Date Dory Wells APRN-CNP [address] [place] [address] PCP - General 09/09/12 documented as of this encounter
--- OUTSIDE RECORDS SUMMARY | 2024-07-29 08:29 | XMS_ITS | Encounter Summary ---
Author Organization [facility] Address [address] [place] [address] Care Team Providers Care Electromechanical Inspector Name Role Phone Tommy Rosen Unavailable Pipo Calixto DO Primary Care Provider [phone] Sonia Vera RN Unavailable Unavailable Encounter Details Date Type Department Care Team (Late st Contact Info) Description 01/08/2024 Orders Only [facility] [address] [facility] [address] [place] [phone] Pipo Calixto DO [address] [facility] [address] [place] [address] Status post total knee replacement, unspecified laterality (Primary Dx); Activity of daily living alteration; Acute knee pain, unspecified laterality Social History Tobacco Use Types Packs/Day Years [...] week 09/26/2022 How often do you attend [facility] or anabaptism services? Patient declined 09/26/2022 Do you belong to any clubs o r organizations such as faith groups, unions, fraternal or athletic groups, or [...] Recorded Patient Health Questionnaire-2 Score 0 09/26/2022 [facility] - Occupational Stress [...] 8:45 AM EST Office Visit [facility] [address] [place] [address] Natalee Moe MD [address] [place] [address] documented as of this encounter Visit Diagnoses Diagnosis Status post total knee replacement, unspecified laterality- Primary Activity of daily living alteration Acute knee pain, unspecified laterality documented in this encounter Care Teams Electromechanical Inspector Relationship Specialty Start Date End Date Pipo Calixto DO [address] [place] [address] PCP - General Family Medicine 09/27/23 Tommy Rosen PA [address] [place] [id number] Physician Supervisor Concrete Block Plant Family Medicine 08/10/22 Sonia Vera, RN Registered Nurse Family Medicine 01/21/24 01/21/24 documented as of this encounter
--- OUTSIDE RECORDS SUMMARY | 2024-07-29 08:29 | XMS_ITS | Encounter Summary ---
Author Organization [facility] Address [address] [place] [address] Care Team Providers Care Licensed Insurance Agent Name Role Phone Tommy Rosen Unavailable Pipo Calixto DO Primary Care Provider [phone] Reason for Visit * Reason Onset Date Comments Med Refill 07/27/2024 Encounter Details Date Type Department Care Team (Late st Contact Info) Description 07/27/2024 Refill [facility] [address] [facility] [address] [place] [phone] Pipo Calixto DO [address] [facility] [address] [place] [address] Chronic pain syndrome; Psychophysiological insomnia Social History Tobacco Use Types Packs/Day Years [...] How often do you attend chur or sabianist services? Patient declined 09/26/2022 Do you belong to any clubs o r organizations such as yazidi groups, unions, fraternal or athletic groups, or [...] Recorded Patient Health Questionnaire-2 Score 0 09/26/2022 [facility] - Occupational Stress [...] place to sleep or slept in a retirement (including now)? No 09/26/2022 Comments No Sex [...] Office Visit [facility] [address] [facility] [address] [place] [address] Natalee Moe MD [address] [facility] [address] [place] [address] documented as of this encounter Visit Diagnoses Diagnosis Chronic pain syndrome Psychophysiological insomnia Persistent disorder of initiating or maintaining sleep documented in this encounter Care Teams Licensed Insurance Agent Relationship Specialty Start Date End Date Pipo Calixto DO [address] [facility] [address] [place] [address] PCP - General Family Medicine 09/27/23 Tommy Rosen PA [address] [facility] [address] [place] [id number] Physician Mica Miner Blasting Family Medicine 08/10/22 documented as of this encounter
--- OUTSIDE RECORDS SUMMARY | 2024-07-29 08:29 | XMS_ITS | Clinical Summary ---
Author Organization [facility] Healthcare Address [address] [address] Care Team Providers Care Home Health Scheduler Name Role Phone Tommy Rosen Unavailable Pipo Calixto DO Primary Care Provider [phone] Allergies Active Allergy Reactions Criticality Noted Date Comments Penicillins Unknown 08/10/2022 Sulfa Antibiotics Unknown 08/10/2022 Medications aspirin 81 MG chewable tablet Chew 81 mg 1 (one) time. Active cinnamon 500 MG capsule Take 500 mg by mouth in the morning. Active coenzyme Q-10 200 MG capsule Take 1 capsule by mouth 1 (one) time each day at the same time. Active omega-3, EPA + DHA, (fish oil) 1000 MG capsule Take 1 capsule by mouth 1 (one) time each day at the same time. Active baclofen (Lioresal) 10 MG tabletIndications: Chronic pain syndrome Take 1 tablet (10 mg) by mouth in the morning and 1 tablet (10 mg) in the evening and 1 tablet (10 mg) before bedtime. 270 tablet 3 5 Active Tirzepatide (Mounjaro) 2.5 MG/0.5ML solution auto-injectorIndic ations:Type 2 diabetes mellitus without complication, without long-term current use of insulin Inject 2.5 mg under the skin 1 (one) time per week 6 mL 1 5 025 Active bisoprolol-hydroCH LOROthiazide (Ziac) 2.5-6.25 MG tabletIndications: Benign hypertension (CMS/HCC) Take 1 tablet by mouth Daily 90 tablet 1 5 Active levothyroxine (Synthroid) 125 MCG tabletIndications: Other specified hypothyroidism Take 1 tablet (125 mcg) by mouth Daily 90 tablet 3 5 Active clopidogrel (Plavix) 75 MG tabletIndications: Occlusion and stenosis of left carotid artery Take 1 tablet (75 mg) by mouth Daily 90 tablet 3 5 Active pregabalin (Lyrica) 300 MG capsuleIndications :Neuralgia and neuritis, unspecified TAKE 1 CAPSULE (300 MG) BY MOUTH IN THE MORNING AND AT BEDTIME 180 capsule 1 5 Active atorvastatin (Lipitor) 80 MG tabletIndications: Mixed hyperlipidemia (CMS/HCC) Take 1 tablet (80 mg) by mouth at bedtime 90 tablet 3 5 Active clindamycin (Cleocin) 300 MG capsuleIndications :Need for antibiotic prophylaxis for dental procedure Take 2 capsules (600 mg) by mouth if needed (prior to dental procedure) 10 capsule 5 Active acyclovir (Zovirax) 400 MG tabletIndications: Herpes Take 1 tablet (400 mg) by mouth Daily 90 tablet 1 5 Active DULoxetine (Cymbalta) [address] capsuleIndications :Chronic pain syndrome Take 1 capsule (30 mg) by mouth Daily Do not crush or chew. 90 capsule 3 5 Active ALPRAZolam (Xanax) 0.5 MG tabletIndications: Psychophysiologica l insomnia Take 1 tablet (0.5 mg) by mouth as needed at bedtime for anxiety 30 tablet 5 025 Active DULoxetine (Cymbalta) [address] capsuleIndications :Chronic pain syndrome Take 1 capsule (30 mg) by mouth Daily Do not crush or chew. 90 capsule 3 4 025 Discontin ued(Reord er) acyclovir (Zovirax) 400 MG tabletIndications: Herpes Take 1 tablet (400 mg) by mouth Daily 90 tablet 1 5 025 Discontin ued(Reord er) ALPRAZolam (Xanax) 0.5 MG tabletIndications: Psychophysiologica l insomnia Take 1 tablet (0.5 mg) by mouth as needed at bedtime for anxiety 30 tablet 5 025 Discontin ued(Reord er) Active Problems Problem Noted Date Diagnosed Date Contracture of knee joint 02/20/2024 Factor V Leiden 12/11/2023 Carotid stenosis, bilateral 09/26/2022 Hypothyroidism 09/26/2022 Left carotid artery occlusion 09/26/2022 Left sided sciatica 09/26/2022 Lumbago with sciatica, left side 09/26/2022 Lumbago with sciatica, right side 09/26/2022 Sciatica 09/26/2022 Lumbosacral spondylosis without myelopathy 09/26 Ocular hypertension 09/26/2022 Other atrophic disorders of skin 09/26/2022 Posterior vitreous detachment of left eye 2022 Prediabetes 09/26/2022 Acquired hallux rigidus 08/19/2018 Class 2 obesity 05/17/2016 Elevated levels of transaminase & lactic acid de hydrogenase 05/16/2016 Obstructive sleep apnea 02/24/2016 Anxiety 12/07/2015 Factor V deficiency 12/07/2015 History of stroke without residual deficits 11/18 Impaired fasting glucose 06/03/2015 Benign essential hypertension 01/12/2015 Insomnia 01/12/2015 Mixed hyperlipidemia 01/12/2015 Postoperative hypothyroidism 01/12/2015 Resolved Problems Problem Noted Date Diagnosed Date Resolved Date Cerebrovascular accident (CV A) due to embolism 01/01/2024 06/03/2024 Type 2 diabetes mellitus without complication 09/27/19 23 09/26/2022 Encounters Date Type Department Care Team Description 07/27/2024 Refill [facility] [address] [place] [address] Pipo Calixto, DO Chronic pain syndrome; Psychophysiological insomnia 07/11/2024 Refill [facility] [address] [place] [address] Pipo Calixto, DO Herpes 06/30/2024 Orders Only [facility] [address] [place] [address] Pipo Calixto, DO Need for antibiotic prophylaxis for dental procedure (Primary Dx) 06/26/2024 Refill [facility] [address] [place] [phone] Pipo Calixto, DO Psychophysiological insomnia 06/11/2024 3:20 PM EDT Office Visit [facility]M [address] [place] [phone] Natalee Moe MD Actinic keratosis (Primary Dx); Keloid 06/11/2024 Bamboo flowsheet [facility] [address] [place] [address] Natalee Moe MD 06/11/2024 Travel 06/03/2024 11:40 AM EDT Office Visit [facility] [address] [place] [address] Pipo Calixto, Wellness examination (Primary Dx); Type 2 diabetes mellitus without complication, without long-term current use of insulin; Benign hypertension (CMS/HCC); Other specified hypothyroidism; Occlusion and stenosis of left carotid artery; Neuralgia and neuritis, unspecified; Mixed hyperlipidemia (CMS/HCC); Herpes 06/03/2024 Bamboo flowsheet [facility] [address] [place] [address] Pipo Calixto, 06/03/2024 Travel 2024 Refill [facility] [address] [place] [address] Pipo Calixto, Psychophysiological insomnia 05/06/2024 Refill [facility] [address] [place] [address] Pipo Calixto, DO Impaired fasting glucose; Systolic murmur; Edema of extremities 04/30/2024 9:30 AM EDT Office Visit [facility] [address] [place] [phone] Bola Akhtar, DO Screening for diabetes mellitus; Screening for lipoid disorders 04/30/2024 Travel from Last 3 Months Immunizations Immunization Administration Dates Next Due Influenza, Injectable, MDCK, preservative free 11/26/2018,12/04/2017 Influenza, injectable, MDCK, preservative free, quadrivalent 11/29/2022,11/30/2021,11/30/2021,2020,11/02/2019 Influenza, injectable, MDCK, quadrivalent 11/26/2018 Influenza, injectable, quadr ivalent, preservative free 12/27/2015 Influenza, seasonal, intrade rmal, preservative free 12/13/2016,12/27/2015,12/26/2015 Zoster, Recombinant 12/27/2019,10/24/2019,2019 Family History Medical History Relation Name Comments No Known Problems Brother Insomnia Daughter MASSIVE H[employer] GERIES Melanoma Father Diabetes Other 1 Hypertension Other 1 Melanoma Other 1 No Known Problems Sister Relation Name Status Comments Brother 3 brothers Daughter Alive 1 daughter Father Alive Mother Alive Other 1 Other 2 spouse Alive Sister 2 sisters Social History Tobacco Use Types Packs/Day Years Used Date Smoking Tobacco: Never Smokeless Tobacco: Never Tobacco Cessation:Counseling Given: Yes Alcohol Use Standard Drinks/Week Comments Yes 2 [...] week 09/26/2022 How often do you attend [facility] or voodoo services? Patient declined 09/26/2022 Do you belong [...] Patient Health Questionnaire-2 Score 0 09/26/2022 [facility] - Occupational [...] place to sleep or slept in a group home (including now)? No 09/26/2022 Comments No Sex and Gender Information Value Date Recorded Sex Assigned at Female 09/11/2022 12:30 PM EDT Legal Sex Female 6:57 PM EDT Gender Identity Female 09/11/2022 12:30 PM EDT Sexual Orientation Straight 09/11/2022 12 :30 PM EDT Last Filed Vital Signs Vital Sign Reading Time Taken Comments Blood Pressure 130/76 06/03/2024 11:34 AM EDT Pulse 71 11/13/2023 11:54 AM EDT Temperature 35.9 C (96.6 F) 11/13/2023 11:54 AM EDT Respiratory Rate - - Oxygen Saturation 96% 11/13/2023 11:54 AM EDT Inhaled Oxygen Concentration - - Weight 90.7 kg (200 lb) 06/03/2024 11:34 AM EDT Height 165.1 cm (5' 5 ) 06/03/2024 11:34 AM EDT Body Mass Index 33.28 06/03/2024 11:34 AM EDT Plan of Treatment Upcoming Encounters Date Type Department Care Team (Late st Contact Info) Description 02/02/2025 8:45 AM EST Office Visit [facility] [address] [place] [address] Natalee Moe MD [address] [place] [address] Health Maintenance Due Date Last Done Comments CT Colonography 1960 Colonoscopy 1960 FIT 1960 FOBT 1960 Sigmoidoscopy 1960 Pap Smear 1981 Cervical Cancer Screening 1990 HPV/Cotest 1990 Diabetes: Urine Protein Screening 05/14/2024 05/15/2023, 08/31/2021, 07/28/2020, Additional history exists Diabetes: Hemoglobin A1C 09/02/2024 025, 12/11/2023, 07/23/2023, Additional history exists Colorectal Cancer Screening 09/13/2024 FIT-DNA 09/13/2024 09/13/2021 Influenza Vaccine (Season Ended) 2024 11/29/2022, 11/30/2021, 11/30/2021, Additional history exists Mammogram 12/11/2024 12/12/2023, 08/20, 09/17/2022, Additional history exists Diabetes: Retinopathy Screening 02/18/2025 , 12/29/2020 Procedures Procedure Name Priority Date/Time Associated Diagnosis Comments NINA [facility] INTRALESIONAL KENALOG INJECTION Routine 06/11/2024 3:21 PM EDT Keloid CRYOTHERAPY SKIN LESION Routine 06/11/2024 3:13 PM EDT Actinic keratosis POCT GLYCOSYLATED HEMOGLOBIN (HGB A1C) Routine 06/03/2024 11:57 AM EDT Type 2 diabetes mellitus without complication, without long-term current use of insulin CARDIOCHECK - LIPID AND GLUCOSE Routine 04/30/2024 5:02 PM EDT Screening for diabetes mellitus Screening for lipoid disorders BI MAMMOGRAM SCREENING TOMOSYNTHESIS BILATERAL Routine 12/12/2023 12:43 PM EDT Screening mammogram for breast cancer MICROALBUMIN / CREATININE URINE RATIO Routine 05/15/2023 12:00 AM EDT LAB COLOGUARD COLON CANCER SCREEN Routine 09/13/2021 COLOR FUNDUS PHOTOGRAPHY - OU - BOTH EYES Routine 12/29/2020 12:00 PM EST from Last 3 Months or Most Recently Relevant to Health Maintenance Results * Intralesional Kenalog Injection (06/11/2024 3:21 PM EDT) Narrative Reema Mace MA - 06/11/2024 3:21 PM EDT Consent: The risks and benefits of intralesional [...] cc of K20 # lesions injected: 1 Result [facility] Natalee Moe MD DERM PROCEDURE ORDERABLES Fin al Result * Cryotherapy, skin lesion (06/11/2024 3:13 PM EDT) Result [facility] Natalee Moe MD DERM PROCEDURE ORDERABLES Fin al Result * (ABNORMAL) POCT glycosylated hemoglobin (Hb A1C) docked device (06/03/2024 11:57 AM EDT) Hemoglobin A1C 5.9 Blood Venous blood specimen / Unknown 06/03/2024 11:57 AM EDT Result [facility] Pipo Calixto DO POINT OF CARE TEST ENTER/EVIE T ORDERABLES Final Result * (ABNORMAL) CARDIOCHECK - LIPID AND GLUCOSE (04/30/2024 5:02 PM EDT) CHOLESTEROL 124 <200 HDL 56 M: 35-65 F: 35-80 LDL 68 <100 TRIGLYCERIDE 95 <150 GLUCOSE 99 <100 Capillary 04/30/2024 5:02 PM EDT Result [facility] Bola Akhtar DO POINT OF CARE TEST ENTER/ED IT ORDERABLES Final Result * Bilateral screening mammogram with tomosynthesis (12/12/2023 12:43 PM EDT) Anatomical Region Laterality Modality Breast Bilateral Mammography 12/13/2023 11:1 3 AM EDT Impressions 12/13/2023 11:19 AM EDT Impression: No specific evidence of malignancy seen in either breast. Breast Density: The breasts are almost entirely fatty BiRads: BIRADS 2 - Benign Recommended follow-up: Routine Screening Mamm ELECTRONICALLY SIGNED BY: Michael Daugherty M.D. Narrative 12/13/2023 11:19 AM EDT Examination: BI MAMMOGRAM SCREENING TOMOSYNTHESIS BILATERAL Clinical History: screening Technique: Screening digital mammography study of both breasts was performed with 2-D and 3-D tomosynthesis imaging. Study was compared to the prior exam dated 09/17/2022 Findings: There is no evidence of interval dominant spiculated mass, grouped microcalcifications, or skin thickening which would be suggestive of malignancy. A few benign-appearing calcifications are seen bilaterally. Procedure Note Michael Daugherty MD - 12/13/2023 Examination: BI MAMMOGRAM SCREENING TOMOSYNTHESIS BILATERAL Clinical History: screening Technique: Screening digital mammography study of both breasts wasperformed with 2-D and 3-D tomosynthesis imaging. Study was compared tothe prior exam dated 09/17/2022 Findings: There is no evidence of interval dominant spiculated mass,grouped microcalcifications, or skin thickening which would be suggestiveof malignancy. A few benign-appearing calcifications are seen bilaterally. IMPRESSION: Impression: No specific evidence of malignancy seen in either breast. Breast Density: The breasts are almost entirely fatty BiRads: BIRADS 2 - Benign Recommended follow-up: Routine Screening Mamm ELECTRONICALLY SIGNED BY: Michael Daugherty M.D. us Pipo Calixto DO IMG BI PROCEDURES Final Resu lt * Microalbumin / creatinine urine ratio (05/15/2023 12:00 AM EDT) CREATININE, RANDOM URINE 220 20 - 275 mg/dL [facility] ALBUMIN, URINE 1.0 See Note: mg/dL [facility] Comment: Reference Range: Reference Range Not established ALBUMIN/CREATININE RATIO, RANDOM URINE 5 <30 mg/g creat [facility] Comment: The ADA defines abnormalities in albumin excretion as follows: Albuminuria Category Result (mg/g creatinine) Normal to Mildly increased <30 Moderately increased 30-299 Severely increased > OR = 300 The ADA recommends that at least two of three specimens collected within a 3-6 month period be abnormal before considering a patient to be within a diagnostic category. 05/15/2023 05/17/2023 6:2 2 AM EDT Narrative [facility] - 05/17/2023 6:25 AM EDT FASTING: UNKNOWN Resulting Agency Comment Performing Organization Information Site ID: [id number] Name: [facility] Address: [address] [place] [address], [address] [place] [id number] Director: Reddy Bell MD us Tommy LAU LAB URINE ORDERABLES Final Resul t Performing Organization Address City/[facility] Co de Phone Number [facility] * Cologuard?? colon cancer screening (09/13/2021) COLOGUARD RESULT REPORTABLE Cancelled - Order Not Applicable [facility] 09/13/2021 us Yovany Neff MD LAB MOLECULAR DIAGNOSTICS JOHNATHAN FITZGERALD Final Result Performing Organization Address [facility] Co de Phone Number [facility] * Color Fundus Photography - OU - Both Eyes (12/29/2020 12:00 PM EST) Anatomical Region Laterality Modality Head Fundus Photograp hy 12/29/2020 12:0 0 PM EST Narrative 12/29/2020 12:00 PM EST PERFORMED AT [facility] LOCATION:[id number] no diabetic retinopathy Procedure Note CONVERSION, GENERIC - 07/04/2022 PERFORMED AT [facility] LOCATION:[id number] no diabetic retinopathy us Sukhwinder Stockton DO OPHTH PHOTOGRAPHY Final Resul t from Last 3 Months or Most Recently Relevant to Health Maintenance Insurance [facility] Care Teams Home Health Scheduler Relationship Specialty Start Date End Date Pipo Calixto DO [address] [place] [address] PCP - General Family Medicine 09/27/23 Tommy Rosen PA [address] [place] [address] Physician Barrel Lathe Operator Inside Family Medicine 08/10/22
--- OUTSIDE RECORDS SUMMARY | 2024-07-29 08:29 | XMS_ITS | Encounter Summary ---
Author Organization [facility] Address [address] [place] [address] Care Team Providers Care Design Consultant Name Role Phone Tommy Rosen Unavailable Sukhwinder Stockton DO Primary Care Provider [phone] iPpo Calixto DO Primary Care Provider [phone] Sonia Vera RN Unavailable Unavailable Encounter Details Date Type Department Care Team (Late st Contact Info) Description 07/02/2023 Abstract [facility] [address] [place] [address] Tommy Rosen PA [address] [facility] [address] [place] [address] Social History Tobacco Use Types Packs/Day [...] How often do you attend chur or christianity services? Patient declined 09/26/2022 Do you belong to any clubs o r organizations such as taoism groups, unions, fraternal or athletic groups, or [...] Recorded Patient Health Questionnaire-2 Score 0 09/26/2022 [facility] - Occupational [...] place to sleep or slept in a jail (including now)? No 09/26/2022 Comments No Sex [...] Office Visit [facility] [address] [place] [address] Natalee Moe MD [address] [place] [address] documented as of this encounter Visit Diagnoses Not on filedocumented in this encounter Care Teams Design Consultant Relationship Specialty Start Date End Date Sukhwinder Stockton DO [address] [place] [address] PCP - General Family Medicine 11/29/22 09/26/23 Pipo Calixto DO [address] [place] [address] PCP - General Family Medicine 09/27/23 Tommy Rosen PA [address] [place] [address] Physician Bus And Sys Integration Senior Manager Family Medicine 08/10/22 Sonia Vera, RN Registered Nurse Family Medicine 01/21/24 01/21/24 documented as of this encounter
--- OUTSIDE RECORDS SUMMARY | 2024-07-29 08:29 | XMS_ITS | Encounter Summary ---
Author Organization [facility] Address [address] [place] [id number] Care Team Providers Care Lamp Cleaner Street Light Name Role Phone Tommy Rosen Unavailable Sukhwinder Stockton DO Primary Care Provider [phone] Pipo Calixto DO Primary Care Provider [phone] Sonia Vera RN Unavailable Unavailable Encounter Details Date Type Department Care Team (Late st Contact Info) Description 07/26/2023 Orders Only [facility] [address] [place] [address] Tommy Rosen PA [address] [place] [id number] Social History Tobacco Use Types Packs/Day [...] How often do you attend chur or sabianism services? Patient declined 09/26/2022 Do you belong to any clubs o r organizations such as methodist groups, unions, fraternal or athletic groups, or [...] Recorded Patient Health Questionnaire-2 Score 0 09/26/2022 [facility] - Occupational [...] Office Visit [facility] [address] [place] [address] Natalee Moe MD [address] [place] [address] documented as of this encounter Visit Diagnoses Not on filedocumented in this encounter Care Teams Lamp Cleaner Street Light Relationship Specialty Start Date End Date Sukhwinder Stockton DO [address] [place] [address] PCP - General Family Medicine 11/29/22 09/26/23 Pipo Calixto DO [address] [place] [address] PCP - General Family Medicine 09/27/23 Tommy Rosen PA [address] [place] [address] Physician Landscaping Supervisor Family Medicine 08/10/22 Sonia Vera, RN Registered Nurse Family Medicine 01/21/24 01/21/24 documented as of this encounter
--- NOTE | 2024-07-29 09:08 | PM.CN ---
Consult Note: HPI Data of Consult Patient: known to practice within the last 3 years Requesting Physician: Selam Haines NP Primary Care Provider: Non-Staff Physician, MD Consult Narrative Reason for consult: back pain Narrative: Carolynn Ho a pleasant 64 year old female presents for evaluation of chronic back pain. longstanding hx of low back pain secondary to lumbar stenosis and lumbar spondylosis as noted on prior lumbar MRI and xray most severe L4-S1. pt has failed to benefit from > 6 weeks of PT, >6 weeks of provider guided HEP, heat, ice, tylenol, and cannot take NSAIDs on plavix. since last visit underwent bilateral L4-5 L5-S1 facet RFA with significant improvement in axial facet mediated low back pain. Notes increased left SIJ and lumbar radiculopathy. on baclofen 10mg TID PRN, cymbalta and tlyneol, cannot take NSAIDs on plavix. Pain 6/10 increasing to 10/10 with bending, standing, walking, sitting. improved with sitting, stretching, sleep, and ice pool. cc:: CC: Selam Haines NP Review of Systems ROS Status of ROS 10 or more systems reviewed and unremarkable except as noted in history and below Musculoskeletal Reports: back pain; Denies: extremity pain [facility] Medical History (Updated 07/29/24 @ 09:12 by Selam Haines NP) Factor 5 Leiden mutation, heterozygous ?D68.51 - Activated protein C resistance (ICD-10) Coronary artery disease ?I25.10 - Atherosclerotic heart disease of [place] coronary artery without angina pectoris (ICD-10) Stroke ?I63.9 - Cerebral infarction, unspecified (ICD-10) Hypothyroid ?E03.9 - Hypothyroidism, unspecified (ICD-10) Sleep apnea ?G47.30 - Sleep apnea, unspecified (ICD-10) HTN (hypertension) ?I10 - Essential (primary) hypertension (ICD-10) Surgical History History of cardiac cath ?Z98.890 - Other specified postprocedural states (ICD-10) History of carpal tunnel release ?Z98.890 - Other specified postprocedural states (ICD-10) Meds Home Medications and Allergies Home Medications ?Medication ?Instructions ?Recorded ?Confirmed ?Type Saccharomyces boulardii 250 mg 250 mg PO DAILY 08/06/23 06/29/24 History capsule (Digest Probiotic (S.boulardii)) acyclovir 400 mg tablet 400 mg PO DAILY 08/06/23 06/29/24 History alprazolam 0.5 mg tablet 0.5 mg PO DAILY 08/06/23 06/29/24 History aspirin 81 mg capsule 81 mg PO DAILY 08/06/23 06/29/24 History atorvastatin 80 mg tablet 80 mg PO DAILY 08/06/23 06/29/24 History bisoprolol 2.5 1 tab PO DAILY 08/06/23 06/29/24 History mg-hydrochlorothiazide 6.25 mg tablet clopidogrel 75 mg tablet 75 mg PO DAILY 08/06/23 06/29/24 History duloxetine 30 mg capsule,delayed 30 mg PO DAILY 08/06/23 06/29/24 History release (Cymbalta) hydrochlorothiazide 25 mg tablet 25 mg PO BID 08/06/23 06/29/24 History levothyroxine 125 mcg tablet 125 mcg PO DAILY 08/06/23 06/29/24 History (Euthyrox) baclofen 10 mg tablet 10 mg PO TID PRN spasms 05/04/24 06/29/24 History diazepam 10 mg tablet (Valium) 10 mg PO Q8H PRN sedation 06/29/24 06/29/24 History Allergies Allergy/AdvReac Type Severity Reaction Status Date / Time Penicillins Allergy Hives Verified 06/29/24 07:25 Sulfa (Sulfonamide Allergy Hives Verified 06/29/24 07:25 Antibiotics) Exam Constitutional Documenting provider has reviewed patient's vital signs: yes Common normals: no apparent distress, oriented x3, healthy appearing, alert and well nourished General appearance: cooperative [facility] Common normals: normocephalic, hearing grossly normal bilaterally and moist oral mucous membranes Head and scalp: normocephalic Eye Common normals: PERRL Pupil: PERRL Neck & C-Spine Common normals: full ROM General: normal visual inspection Chest Common normals: inspection of chest normal Respiratory Common normals: normal respiratory effort, no retractions and no use of accessory muscles Back & Pelvis Lumbar spine/lower back: ROM limited, pain with ROM and lumbar spinal tenderness Lumbar spinal tenderness location: L1 and L2 Sacroiliac joints: SI joint(s) abnormal Other: negative facet loading L4-S1 radiculopathy following left L4,5,S1 strength 4/5 in LLE and 5/5 in RLE left SIJ positive kim(patricks), gaenslens, thigh thrust, compression test Neuro Common normals: oriented x3 and CN's II-XII intact bilaterally Sensorium/orientation: alert Motor exam: no movement abnormalities noted Psych Common normals: mental status grossly normal, thought process normal, cooperative, affect normal, speech normal and activity/motor behavior normal Speech: normal speech Thought process: normal thought process Results Additional Findings Additional findings: If on a controlled substance or opioids, I have checked an [place]AR[place] report on this patient and there are no aberrancies noted in the prescribing history.??If on a controlled substance or opioid a drug screen was completed and reviewed within the last year, and if there has not been a drug screen completed we ordered one today to monitor higher risk, state monitored pain medication use. As part of providing excellent, safe, comprehensive care, the following was completed at our patient's visit: 1. A medication reconciliation and review to ensure accurate knowledge of current/active medications, including asking our patients to inform us about any jvbn-kgr-[id number] medications or herbal remedies/nutritional supplements/alternative remedies. 2. A review to specifically ensure our patients have had annual screening for screening for depression, screening for tobacco use, and screening for unhealthy alcohol use. For concerning screenings had a discussion with the patient, provided patient education, and recommended follow-up with primary care provider when appropriate. If patient noted with a risk of falling, they received education on strength, gait, and balance training to prevent future risk of falling. Portions of this note may have been carried over from the previous visit and updated as appropriate. Please note this office utilizes paper charting in addition to the electronic medical record. A list of current medications, vitals, and PMH is available there as the clinical staff outside of myself do not have access to [employer] charting during the clinic day operations. As part of providing quality comprehensive care the current medications, vitals, and PMH were reviewed in the paper chart. Assessment and Plan Assessment and Plan (1) Lumbar stenosis with neurogenic claudication: Assessment and Plan: The patient has had over 3 months of moderate to severe low back pain with functional impairment and inadequate response to conservative care including NSAIDS (unless there are contraindication such as concurrent blood thinners), multiple oral or topical pain medications, and home exercise program/physical therapy.? Patient has completed >6 weeks of guided home exercise program and/or formal physical therapy program without relief of their symptoms.? I have reviewed the imaging of the lumbar spine and no red flags were identified.? The Oswestry Disability Index was completed, and the patient scored a 34%.? The patient noted the following:?? moderate to severe pain impacting ADLs, sitting, standing, walking, and sleep We discussed the risks and benefits of the procedure with the patient, and we are NOT planning on using sedation as outlined in the guidelines from Medicare unless there is a documented reason that sedation would be strongly recommended.?? ?The procedure will be completed with fluoroscopic guidance.? (2) Lumbar spondylosis: (3) Sacroiliitis: Plan Left L4-5 L5-S1 TFESI for lumbar stenosis with NC consider left SIJ injection if needed continue HEP as tolerated f/u 2 weeks after injection
== END 2024-07-29 08:26 | disposition home or self-care (01) ==
LOC: PM 08:26
PROVIDERS: Visit Provider Nurse Practitioner
DX: M48.062 Spinal stenosis, lumbar region with neurogenic claudication (principal); M47.816 Spondylosis without myelopathy or radiculopathy, lumbar region; M46.1 Sacroiliitis, not elsewhere classified
CPT/HCPCS: G0463

== ENCOUNTER 2024-08-10 09:38 | Day surgery (SDC) | payer BC, SELFPAY ==
--- OUTSIDE RECORDS SUMMARY | 2024-08-10 09:41 | XMS_ITS | Encounter Summary ---
Author Organization [facility] Address [address] [place] [address] Care Team Providers Care Pay Clerk Name Role Phone Tommy Rosen Unavailable Pipo Calixto DO Primary Care Provider [phone] Sonia Vera RN Unavailable Unavailable Encounter Details Date Type Department Care Team (Late st Contact Info) Description 12/20/2023 External Result Encounter [facility] External Department Unsolicited Pipo Calixto DO [address] [place] [address] Social History Tobacco Use Types Packs/Day Years [...] How often do you attend chur or baptism services? Patient declined 09/26/2022 Do you belong to any clubs o r organizations such as gnosticist groups, unions, fraternal or athletic groups, or [...] Recorded Patient Health Questionnaire-2 Score 0 09/26/2022 [facility] of Occupat ional Health - Occupational Stress [...] [place] [address] [place] [phone] Natalee Moe MD [address] [facility] [address] [place] [address] documented as of this encounter Procedures Procedure Name Priority Date/Time Associated Diagnosis Comments TRANSTHORACIC ECHO (TTE) COMPLETE 12/20/2023 9:36 AM EDT documented in this encounter Results * Transthoracic echo (TTE) complete (12/20/2023 9:36 AM EDT) Anatomical Region Laterality Modality Heart Ultrasound 12/20/2023 9:36 AM EDT Narrative 12/20/2023 12:56 PM EDT [facility] [place] [address] Echocardiogram Signed Patient: Carolynn Ho MR#: [id number] : 1960 Acct:[id number] Age/Sex: 63 / F ADM Date: 12/20/23 Loc: Room: Type: [facility] Attending Dr: Pipo Calixto DO Ordering [...] Hallman MD 12/20/23 1256 Procedure Note Verito Hallman MD - 12/20/2023 [facility] [place] [address] Echocardiogram Signed Patient: Carolynn Ho [facility]#: [id number] : 1Acct:[id number] Age/Sex: 63 / FADM Date: 12/20/23 Loc: Room:Type: [facility] Attending Dr: Pipo Calixto DO Ordering Provider: Pipo Calixto DO Date of Service: 12/20/23/ [facility] echo transthoracic: Murmur, Edema Copies to: [...] on filedocumented in this encounter Care Teams Pay Clerk Relationship Specialty Start Date End Date Pipo Calixto DO [address] [address] PCP - General Family Medicine 09/27/23 Tommy Rosen PA [address] [place] [address] Physician Core Paster Family Medicine 08/10/22 Sonia Vera, RN Registered Nurse Family Medicine 01/21/24 01/21/24 documented as of this encounter
--- OUTSIDE RECORDS SUMMARY | 2024-08-10 09:41 | XMS_ITS | Encounter Summary ---
Author Organization [facility] Address [address] [place] [address] Care Team Providers Care Psych Rn Name Role Phone Tommy Rosen PA-C Unavailable [phone] Pipo Calixto DO Primary Care Provider [phone] Vaibhav Hatch MD Unavailable [phone] Source Comments In the event this information is protected by the Federal Confidentiality of Alcohol and Drug AbusePatient Records regulations: The Federal rules restrict any use of the information to criminally investigate or prosecute any alcohol or drug abuse patient.[facility] Encounter Details Date Type Department Care Team (Late st Contact Info) Description 12/31/2023 Patient Msg [facility] [place] [address] [place] [address] Provider, [facility] ACTION REQUIRED: Skin Preparation before your surgery Social History Tobacco Use Types Packs/Day Years Used Date Smoking Tobacco: Never Smokeless Tobacco: Never Alcohol Use Standard Drinks/Week Comments Not Currently 0 (1 standard drink = 0.6 oz pur e alcohol) socialy [facility] Utilities Answer Date Recorded In the past 12 months has [employer] electric, gas, oil, or water company threatened [...] any time in the past 12 m [facility], were you homeless or living in a longterm (including now)? No 01/02/2024 Area Deprivation Index Answer Date Primo rded National Score (1-100), lower number is lower ri sk 74 11/18/2023 State Score (1-10), lower number is lower risk 6 11/18/2023 Data from: https://www.neighborhoodatlas.medicine.[facility].edu/. Last address used for calculation [address] [facility] 11/18/2023 Comments No Sex and Gender [...] on filedocumented in this encounter Care Teams Psych Rn Relationship Specialty Start Date End Date Pipo Calixto DO [address] [place] [address] PCP - General Family Medicine 09/27/23 Tommy Rosen PA-C [address] [place] [address] Physician Insurance Claims Clerk 06/18/23 [place] [address] [place] [phone] Surgeon Orthopedics 11/19/23 documented as of this encounter
--- OUTSIDE RECORDS SUMMARY | 2024-08-10 09:41 | XMS_ITS | Encounter Summary ---
Author Organization [facility] Address [address] [place] [address] Care Team Providers Care Precast Molder Name Role Phone Tommy Rosen Unavailable Tommy Rosen Primary Care Provider [phone] Sukhwinder Stockton DO Primary Care Provider [phone] Pipo Calixto DO Primary Care Provider [phone] Sonia Vera RN Unavailable Unavailable Reason for Visit * Reason Comments Med Refill Encounter Details Date Type Department Care Team (Late st Contact Info) Description 11/09/2022 Refill [facility] [address] [facility] [address] [place] [phone] Tommy Rosen PA [address] [facility] [address] [place] [address] Neuralgia and neuritis, unspecified Social [...] any clubs o r organizations such as orthodox groups, unions, fraternal or athletic groups, or [...] Recorded Patient Health Questionnaire-2 Score 0 09/26/2022 [facility] of Occupat ional Health - Occupational [...] [place] [address] [place] [phone] Natalee Moe MD [address] [place] [address] documented as of this encounter Visit Diagnoses Diagnosis Neuralgia and neuritis, unspecified documented in this encounter Care Teams Precast Molder Relationship Specialty Start Date End Date Tommy Rosen PA [address] [facility] [address] [place] [address] PCP - General Family Medicine 09/11/22 11/28/22 Sukhwinder Stockton DO [address] [facility] [address] [place] [address] PCP - General Family Medicine 11/29/22 09/26/23 Pipo Calixto DO [address] [address] PCP - General Family Medicine 09/27/23 Tommy Rosen PA [address] [facility] [address] [place] [address] Physician Quill Machine Tender Family Medicine 08/10/22 Sonia Vera, RN Registered Nurse Family Medicine 01/21/24 01/21/24 documented as of this encounter
--- OUTSIDE RECORDS SUMMARY | 2024-08-10 09:41 | XMS_ITS | Clinical Summary ---
Author Organization [facility] Address [facility] [place] [address] Care Team Providers Care Dye Tank Tender Name Role Phone Tommy Rosen PA-C Unavailable [phone] Pipo Calixto DO Primary Care Provider Vaibhav Hatch MD Unavailable [phone] Allergies Active Allergy Reactions Criticality Noted Date [...] KLOR-CON M10 10 mEq tablet 4 Active [place]-3 Fatty Acids, FISH OIL, 360-1,200 mg cap [...] drink = 0.6 oz pur e alcohol) [facility] Utilities Answer Date Recorded In the past 12 months has e 99 [employer], gas, oil, or water [employer] threatened to shut off services in your [...] were you homeless or living in a snf (including now)? No 01/02/2024 Area Deprivation Index Answer Date Primo rded National Score (1-100), lower number is lower ri sk 74 11/18/2023 State Score (1-10), lower number is lower risk 6 11/18/2023 Data from: https://www.neighborhoodatlas.medicine.[facility].edu/. Last address used for calculation [address] [facility] 11/18/2023 Comments No Sex and Gender Information [...] Salazar MD Medical Devices Implanted Type Area Prenatal Teacher Device Identifier Shelf Expiration Date Model / Serial / Lot Insert Triathlon 3 9mm Tibial Bearing Cruciate Retain Sterile Knee - [id number] Implanted:Qty: 1 on 01/01/2024 at [facility] Joint - Knee Right: Bone - Knee [facility] 07/22/2028 [id number] / / [id number] Baseplate Triathalon 3 Tritanium 44mm 67mm Tibial Sterile Latex Free - [id number] Implanted:Qty: 1 on 01/01/2024 at [facility] Joint - Knee Right: Bone - Knee [facility] 08/17/2028 5536-[id number] / / [id number] Component Triathlon 3 Pa Femoral Cruciate Retain Bead Knee Right - [id number] Implanted:Qty: 1 on 01/01/2024 at [facility] Joint - Knee Right: Bone - Knee [facility] 11/12/2028 5517-[id number] / / [id number] Component 32mm Tritanium 10mm Patellar Asymmetric - [id number] Implanted:Qty: 1 on 01/01/2024 at [facility] Joint - Knee Right: Bone - Knee [facility] 09/24/2028 5552-[id number]-320 / / [id number] Procedures Procedure Name Priority Date/Time Associated Diagnosis Comments BASIC METABOLIC PANEL Routine 01/02/2024 3:57 AM EST from Last 3 Months or Most Recently Relevant to Health Maintenance Results * (ABNORMAL) BASIC METABOLIC PANEL (01/02/2024 3:57 AM EST) [facility] Glucose 152(H) 74 - 99 mg/dL 01/02/2024 5:30 AM EST [facility] Comment: The [place] Diabetes Association (ADA) provides guidance for cutoff [...] Standards of Medical Care in Diabetes 2016, [place] Diabetes Association. Diabetes Care. 2016.39(Suppl 1). BUN 21 7 - 21 mg/dL 01/02/2024 5:30 AM EST [facility] Creatinine 0.85 0.58 - 0.96 mg/dL 01/02/2024 5:30 AM [facility] Sodium 141 136 - 144 mmol/L 01/02/2024 5:30 AM [facility] Potassium 3.5(L) 3.7 - 5.1 mmol/L 01/02/2024 5:30 AM [facility] Chloride 103 98 - 107 mmol/L 01/02/2024 5:30 AM [facility] CO2 28 22 - 30 mmol/L 01/02/2024 5:30 AM [facility] Anion Gap 10 8 - 15 mmol/L 01/02/2024 5:30 AM [facility] Calcium, Total 9.2 8.5 - 10.2 mg/dL 01/02/2024 5:30 AM [facility] Estimated Glomerular Filtration Rate 77 >=60 mL/min/1. 73m 01/02/2024 5:30 AM [facility] Comment:Estimated Glomerular Filtration Rate (eGFR) is [...] Vaibhav Hatch MD LABORATORY Final Re sult [facility] [id number] [place] [address], from Last 3 Months or Most Recently Relevant to Health Maintenance Insurance [employer] PPO Member Subscriber Plan / Payer (Ef fective 2022-Present) Name:Carolynn Givens Member ID:[id number] Relation to Subscriber:Self Name:Carolynn Givens Subscriber ID:[id number] Payer ID:[id number] (NA) Type:PPO Address: [facility] [id number] [place] [id number] Care Teams Dye Tank Tender Relationship Specialty Start Date End Date Pipo Calixto DO [address] [place] [address] PCP - General Family Medicine 09/27/23 Tommy Rosen, PAKathiaC [address] [place] [address] Physician Guidance Consultant 06/18/23 [place] [address] [place] [address] Surgeon Orthopedics 11/19/23
--- OUTSIDE RECORDS SUMMARY | 2024-08-10 09:41 | XMS_ITS | Encounter Summary ---
Author Organization [facility] Address [address] [place] [address] Care Team Providers Care Commercial Leasing Agent Name Role Phone Tommy Rosen Unavailable Tommy Rosen Primary Care Provider [phone] Sukhwinder Stockton DO Primary Care Provider [phone] Pipo Calixto DO Primary Care Provider [phone] Sonia Vera RN Unavailable Unavailable Encounter Details Date Type Department Care Team (Late st Contact Info) Description 09/26/2022 Abstract [facility] [address] [facility] [address] [place] [phone] Tommy Rosen PA [address] [facility] [address] [place] [address] Social History Tobacco Use Types Packs/Day [...] How often do you attend chur or mormon services? Patient declined 09/26/2022 Do you belong to any clubs o r organizations such as anglican groups, unions, fraternal or athletic groups, or [...] Recorded Patient Health Questionnaire-2 Score 0 09/26/2022 [facility] of Occupat ional Health - Occupational Stress [...] place to sleep or slept in a skilled nursing (including now)? No 09/26/2022 Comments No Sex [...] [address] [place] [address] Natalee Moe MD [address] [place] [address] documented as of this encounter Visit Diagnoses Not on filedocumented in this encounter Care Teams Commercial Leasing Agent Relationship Specialty Start Date End Date Tommy Rosen PA [address] [place] [address] PCP - General Family Medicine 09/11/22 11/28/22 Sukhwinder Stockton DO [address] [place] [address] PCP - General Family Medicine 11/29/22 09/26/23 Pipo Calixto DO [address] [place] [address] PCP - General Family Medicine 09/27/23 Tommy Rosen PA [address] [place] [address] Physician Medical Service Representative Family Medicine 08/10/22 Sonia Vera, RN Registered Nurse Family Medicine 01/21/24 01/21/24 documented as of this encounter
--- OUTSIDE RECORDS SUMMARY | 2024-08-10 09:41 | XMS_ITS | Clinical Summary ---
Author Organization [facility] Address [address] [facility] [place] [address] Care Team Providers Care Taffy Candy Maker Name Role Phone Tommy Rosen Unavailable Pipo Calixto DO Primary Care Provider [phone] Allergies Active Allergy Reactions Criticality Noted Date [...] complication, without long-term current use of insulin (HCC) Inject 2.5 mg under the skin 1 (one) time per week 6 mL 1 5 025 Active bisoprolol-hydroCH LOROthiazide (Ziac) 2.5-6.25 MG tabletIndications: Benign hypertension Take 1 tablet by mouth Daily 90 [...] atorvastatin (Lipitor) 80 MG tabletIndications: Mixed hyperlipidemia Take 1 tablet (80 mg) by mouth [...] capsule 3 4 025 Discontin ued(Reord er) ALPRAZolam (Xanax) 0.5 MG tabletIndications: Psychophysiologica l insomnia Take 1 tablet (0.5 mg) by mouth as needed at bedtime for anxiety 30 tablet 5 025 Discontin ued(Reord er) Active Problems Problem Noted Date Diagnosed Date Contracture of knee joint 02/20/2024 Factor V Leiden ([facility]) 12/11/2023 Carotid stenosis, bilateral 09/26/2022 Hypothyroidism 09/26/2022 [...] 06/03/2024 Type 2 diabetes mellitus without complication 09/27/1909/26/2022 Encounters Date Type Department Care Team Description 07/27/2024 Refill [facility] [address] [place] [address] Pipo Calixto, DO Chronic pain syndrome; Psychophysiological insomnia 07/11/2024 Refill [facility] [address] [place] [address] Pipo Calixto, DO Herpes 06/30/2024 Orders Only [facility] [address] [place] [address] Pipo Calixto, DO Need for antibiotic prophylaxis for dental procedure (Primary Dx) 06/26/2024 Refill [facility] [address] [place] [address] Pipo Calixto, DO Psychophysiological insomnia 06/11/2024 3:20 PM EDT Office Visit [facility] [address] [place] [address] Natalee Moe MD Actinic keratosis (Primary Dx); Keloid 06/11/2024 Bamboo flowsheet [facility] [address] [place] [address] Natalee Moe MD 06/11/2024 Travel 06/03/2024 11:40 AM EDT Office Visit [facility] [address] [place] [address] Pipo Calixto, DO Wellness examination (Primary Dx); Type 2 diabetes mellitus without complication, without long-term current use of insulin (HCC); Benign hypertension ; Other specified hypothyroidism ; Occlusion and stenosis of left carotid artery; Neuralgia and neuritis, unspecified; Mixed hyperlipidemia ; Herpes 06/03/2024 Bamboo flowsheet [facility] [address] [place] [address] Pipo Calixto DO 06/03/2024 Travel 2024 Refill [facility] [address] [place] [address] Pipo Calixto, Psychophysiological insomnia from Last 3 Months Immunizations Immunization Administration [...] How often do you attend chur or protestant services? Patient declined 09/26/2022 Do you belong to any clubs o r organizations such as jainism groups, unions, fraternal or athletic groups, or [...] Recorded Patient Health Questionnaire-2 Score 0 09/26/2022 [facility] Occupat ional Health - Occupational Stress [...] place to sleep or slept in a nursing home (including now)? No 09/26/2022 Comments No [...] Description 02/02/2025 8:45 AM EST Office Visit [facility] [address] [facility] [address] [place] [address] Natalee Moe MD [address] [facility] [address] [place] [address] Health Maintenance Due Date Last Done Comments [...] 11/30/2021, Additional history exists Mammogram 12/11/2024 12/12/2023, 0702/2022, 09/17/2022, Additional history exists Diabetes: Retinopathy Screening 02/18/2025 4, 12/29/2020 Procedures Procedure Name Priority Date/Time Associated Diagnosis Comments NINA RENATOS INTRALESIONAL KENALOG INJECTION Routine 06/11/2024 3:21 PM EDT Keloid CRYOTHERAPY SKIN LESION Routine 06/11/2024 3:13 PM EDT Actinic keratosis POCT GLYCOSYLATED HEMOGLOBIN (HGB A1C) Routine 06/03/2024 11:57 AM EDT Type 2 diabetes mellitus without complication, without long-term current use of insulin (HCC) BI MAMMOGRAM SCREENING TOMOSYNTHESIS BILATERAL Routine 12/12/2023 [...] Intralesional Kenalog Injection (06/11/2024 3:21 PM EDT) Reema Shirley MA - 06/11/2024 3:21 PM EDT Consent: [...] cc of K20 # lesions injected: 1 us Natalee Moe MD DERM PROCEDURE ORDERABLES Fin al Result * Cryotherapy, skin lesion (06/11/2024 3:13 PM EDT) Natalee Moe MD DERM PROCEDURE ORDERABLES Fin al Result * (ABNORMAL) POCT glycosylated hemoglobin (Hb A1C) docked device (06/03/2024 11:57 AM EDT) Hemoglobin A1C 5.9 Blood Venous blood specimen / Unknown 06/03/2024 11:57 AM EDT Pipo Calixto DO POINT OF CARE TEST ENTER/EVIE T ORDERABLES Final Result * Bilateral screening mammogram [...] Performing Organization Information Site ID: QPT Name: [facility] Address: [address] [place] [address], [address] [place] [id number] Director: Reddy Bell MD us Tommy LAU LAB URINE ORDERABLES Final Resul t Performing Organization Address City/[facility] Co de Phone Number QUEST * Cologuard?? colon cancer screening (09/13/2021) COLOGUARD RESULT REPORTABLE Cancelled - Order Not Applicable [facility] 09/13/2021 us Yovany Neff MD LAB MOLECULAR DIAGNOSTICS JOHNATHAN FITZGERALD Final Result Performing Organization Address [facility] [place]/[facility]/ZIP Co de Phone Number [facility] * Color Fundus Photography - OU - Both Eyes (12/29/2020 12:00 PM EST) Anatomical Region Laterality Modality Head Fundus Photograp hy 12/29/2020 12:0 0 PM EST Narrative 12/29/2020 12:00 PM EST PERFORMED AT [facility] LOCATION:[id number] no diabetic retinopathy Procedure Note CONVERSION, GENERIC - 07/04/2022 PERFORMED AT [facility] LOCATION:[id number] no diabetic retinopathy Sukhwinder Stockton DO OPHTH PHOTOGRAPHY Final Resul t from Last 3 Months or Most Recently Relevant to Health Maintenance Insurance [facility] Care Teams Taffy Candy Maker Relationship Specialty Start Date End Date Pipo Calixto DO [address] [place] [address] PCP - General Family Medicine 09/27/23 Tommy Rosen PA [address] [place] [address] Physician Truck Crane Operator Family Medicine 08/10/22
--- OUTSIDE RECORDS SUMMARY | 2024-08-10 09:41 | XMS_ITS | Encounter Summary ---
Author Organization [facility] Address [address] [facility] [place] [address] Care Team Providers Care Outside Sales Executive Name Role Phone Tommy Rosen Unavailable Sukhwinder Stockton DO Primary Care Provider [phone] Pipo Calixto DO Primary Care Provider + [phone] Sonia Vera RN Unavailable Unavailable Encounter Details [...] week 09/26/2022 How often do you attend [facility] or church services? Patient declined 09/26/2022 Do you belong to any clubs o r organizations such as hoahaoism groups, unions, fraternal or athletic groups, or [...] Recorded Patient Health Questionnaire-2 Score 0 09/26/2022 [facility] - Occupational Stress Questionnaire Answer Date [...] DERM [address] [place] [address] Natalee Moe MD [address] [place] [address] documented as of this encounter Procedures Procedure Name Priority Date/Time Associated Diagnosis Comments [facility] US CAROTID ARTERY DUPLEX BILATERAL 09/25/2023 9:40 AM EDT documented in this encounter Results * [facility] US CAROTID ARTERY DUPLEX BILATERAL (09/25/2023 9:40 AM EDT) Anatomical Region Laterality Modality Other 09/25/2023 9:40 AM EDT Narrative 09/25/2023 11:25 AM EDT Preliminary Cardiology Report [facility] [address] [place] [address] Preliminary Vascular Lab Report [facility] US CAROTID ARTERY DUPLEX BILATERAL Patient Name: CAROLYNN Wilburn [id number] Physician: Study Date: 09/25/2023 Ordering [id number] JACK BARBOSA Provider: MRN/PID: [id number] Fellow: Technologist: Carolynn Olvera RVT, RDMS Date of : 1960 Technologist 2: Gender: F Admission Outpatient Location [facility] Status: Performed: Diagnosis/ICD: Occlusion and stenosis of bilateral carotid arteries-I65.23 Indication: Carotid Occlusion/Stenosis w/o infarct CPT Codes: 44977 Cerebrovascular Carotid Duplex scan complete Pertinent History: [...] Radiology, Radiologist, - 09/25/2023 Preliminary Cardiology Report [facility] [address] [facility] [place] [address] Preliminary [facility] CAROTID ARTERY DUPLEX BILATERAL Patient Name: CAROLYNN Wilburn [id number] [address] [place] Physician: Study Date: 09/25/2023 Ordering [id number] JACK MACIEL Provider: MRN/PID: [id number] Fellow: Technologist: Carolynn Tejeda RDMS Date of : 1960 Technologist 2: Gender: F Admission Outpatient Location [facility] Status: Performed: Diagnosis/ICD: Occlusion and stenosis of bilateral carotidarteries-I65.23 Indication: Carotid Occlusion/Stenosis w/o infarct CPT Codes: 72696 Cerebrovascular Carotid Duplex scan complete Pertinent History: [...] on filedocumented in this encounter Care Teams Outside Sales Executive Relationship Specialty Start Date End Date Sukhwinder Stockton DO [address] [place] [address] PCP - General Family Medicine 11/29/22 09/26/23 Pipo Calixto DO [address] [place] [address] PCP - General Family Medicine 09/27/23 Tommy Rosen PA [address] [place] [address] Physician Electronic Publisher Family Medicine 08/10/22 Sonia Vera, RN Registered Nurse Family Medicine 01/21/24 01/21/24 documented as of this encounter
--- OUTSIDE RECORDS SUMMARY | 2024-08-10 09:41 | XMS_ITS | Encounter Summary ---
Author Organization [facility] Address [address] [place] [address] Care Team Providers Care Registered Nurse Supervisor Name Role Phone Tommy Rosen PA-C Unavailable [phone] Pipo Calixto DO Primary Care Provider [phone] Vaibhav Hatch MD Unavailable [phone] Source Comments In the event this information is protected by the Federal Confidentiality of Alcohol and Drug AbusePatient Records regulations: The Federal rules restrict any use of the information to criminally investigate or prosecute any alcohol or drug abuse patient.[facility] Encounter Details Date Type Department Care Team (Late st Contact Info) Description 12/18/2023 Patient Msg [facility] [address] [place] [address] Provider, Ccf Important Reminder for [...] is lower risk 6 11/18/2023 Data from: https://www.neighborhoodatlas.[facility].edu/. Last address used for calculation [address] [...] on filedocumented in this encounter Care Teams Registered Nurse Supervisor Relationship Specialty Start Date End Date Pipo Calixto DO [address] [place] [address] PCP - General Family Medicine 09/27/23 Tommy Rosen, PA-C [address] [place] [address] Physician Production Engineer Track 06/18/23 [place] [address] [place] [address] Surgeon Orthopedics 11/19/23 documented as of this encounter
--- OUTSIDE RECORDS SUMMARY | 2024-08-10 09:41 | XMS_ITS | Encounter Summary ---
Author Organization [facility] Address [address] [place] [address] Care Team Providers Care Inspector Chief Name Role Phone Tommy Rosen Unavailable Pipo Calixto DO Primary Care Provider [phone] Sonia Vera RN Unavailable Unavailable Encounter Details Date Type Department Care Team (Late st Contact Info) Description 01/08/2024 Orders Only [facility] [address] [facility] [address] [place] [address] Pipo Calixto DO [address] [facility] [address] [place] [address] Status post total knee replacement, unspecified [...] week 09/26/2022 How often do you attend [facility] or anglican services? Patient declined 09/26/2022 Do you belong to any clubs o r organizations such as advent groups, unions, fraternal or athletic groups, or [...] Recorded Patient Health Questionnaire-2 Score 0 09/26/2022 [facility] Occupat ional Health - Occupational [...] place to sleep or slept in a intermediate (including now)? No 09/26/2022 Comments No Sex [...] DERM [address] [place] [address] Natalee Moe MD [address] [place] [address] documented as of this encounter Visit Diagnoses Diagnosis Status post total knee replacement, unspecified laterality- Primary Activity of daily living alteration Acute knee pain, unspecified laterality documented in this encounter Care Teams Inspector Chief Relationship Specialty Start Date End Date Pipo Calixto DO [address] [place] [address] PCP - General Family Medicine 09/27/23 Tommy Rosen PA [address] [place] [id number] Physician Director It Family Medicine 08/10/22 Sonia Vera, RN Registered Nurse Family Medicine 01/21/24 01/21/24 documented as of this encounter
--- OUTSIDE RECORDS SUMMARY | 2024-08-10 09:41 | XMS_ITS | Encounter Summary ---
Author Organization [facility] Address [address] [place] [address] Care Team Providers Care Strategic Partner Development Manager Name Role Phone Tommy Rosen Unavailable Pipo Calixto DO Primary Care Provider [phone] Sonia Vera RN Unavailable Unavailable Encounter Details Date Type Department Care Team (Late st Contact Info) Description 12/20/2023 Abstract [facility] [address] [place] [phone] Pipo Calixto DO [address] [place] [address] Social History Tobacco Use Types Packs/Day [...] often do you attend chur ch or spiritism services? Patient declined 09/26/2022 Do you belong to any clubs o r organizations such as restorationism groups, unions, fraternal or athletic groups, or [...] Patient Health Questionnaire-2 Score 0 09/26/2022 [facility] - Occupational Stress Questionnaire Answer Date Recorded [...] Office Visit [facility] [address] [place] [address] Natalee Moe MD [address] [place] [address] documented as of this encounter Visit Diagnoses Not on filedocumented in this encounter Care Teams Strategic Partner Development Manager Relationship Specialty Start Date End Date Pipo Calixto DO [address] [place] [address] PCP - General Family Medicine 09/27/23 Tommy Rosen PA [address] [place] [address] Physician Electrophysiology Technologist Family Medicine 08/10/22 Sonia Vera, NII Registered Nurse Family Medicine 01/21/24 01/21/24 documented as of this encounter
--- OUTSIDE RECORDS SUMMARY | 2024-08-10 09:42 | XMS_ITS | Referral Summary ---
Author Organization [facility] Address [address] [place] [address] Care Team Providers Care Community Development Planner Name Role Phone Tommy Rosen MD Primary Care Provider [phone] Allergies Active Allergy Reactions Criticality Noted Date Comments Penicillins Anaphylaxis High 07/18/2023 Sulfur Rash Low 07/18/2023 Medications acyclovir (Zovirax) 400 mg tablet Take 400 mg by mouth in the morning. 05/14/2023 Active hydroCHLOROthiaz jordyn (HYDRODiuril) 25 mg tablet Take 25 mg by mouth 2 times daily. 07/17/2023 Active Synthroid 125 mcg tablet Take 125 mcg by mouth in the morning. 06/13/2023 Active bisoproloL-hydro chlorothiazide (Ziac) 2.5-6.25 mg tablet Take 1 tablet by mouth in the morning. 04/22/2023 Active atorvastatin (Lipitor) 80 mg tablet Take 80 mg by mouth at bedtime. 05/05/2023 Active ALPRAZolam (Xanax) 0.5 mg tablet TAKE 1 TABLET (0.5 MG) BY MOUTH NEEDED AT BEDTIME FOR ANXIETY 06/26/2023 Active clopidogrel (Plavix) 75 mg tablet Take 75 mg by mouth in the morning. 07/17/2023 Active pregabalin (Lyrica) 300 mg capsule Take 300 mg by mouth in the morning. 07/17/2023 Active omega-3 fatty acids-fish oil (Fish OiL) 360-1,200 mg capsule Take 1 capsule by mouth once daily as directed. Active MULTIVIT,MIN52-F [id number] ORAL Take by mouth. Active B6/folic/B12/cof fee/phosphatid (NEURIVA PLUS BRAIN PERFORMANCE ORAL) Take by mouth. Active saccharomyces boulardii (Florastor) 250 mg capsule Take 250 mg by mouth in the morning and at bedtime. Active aspirin 81 mg EC tablet Take 81 mg by mouth at bedtime. Active DULoxetine (Cymbalta) [address] Canales ns:Chronic low back pain with bilateral sciatica, unspecified back pain laterality TAKE 1 CAPSULE BY MOUTH IN THE MORNING. DO NOT CRUSH OR CHEW. 90 capsule 1 08/12/2023 Active Social History Tobacco Use Types Packs/Day Years Used Date Smoking Tobacco: Never Passive Smoke Exposure: Never Smokeless Tobacco: Never Tobacco Cessation:Counseling Given: Not Answered Alcohol Use Standard Drinks/Week Comments Not Currently 0 (1 standard drink = 0.6 oz pur e alcohol) Humiliation, Afraid, Rape, and Kick questionnair e Answer Date Recorded Within the last year, have y ou been afraid of your partner or ex-partner? No 07/18/2023 Emotionally Abused Not on file 07/18/2023 Physically Abused Not on file 07/18/2023 Sexually Abused Not on file 07/18/2023 PHQ-2 Answer Date Recorded Patient Health Questionnaire-2 Score 0 07/18/2023 Comments Unknown Sex and Gender Information Value Date Recorded Sex Assigned at Not on file Legal Sex Female 8:22 AM EDT Gender Identity Not on file Sexual Orientation Not on file Last Filed Vital Signs Vital Sign Reading Time Taken Comments Blood Pressure 149/79 07/18/2023 2:38 PM EDT Pulse 72 07/18/2023 2:38 PM EDT Temperature - - Respiratory Rate - - Oxygen Saturation 100% 07/18/2023 2:38 PM EDT Inhaled Oxygen Concentration - - Weight 106 kg (233 lb 6.4 oz) 07/18/2023 2:38 PM EDT Height 162.6 cm (5' 4 ) 07/18/2023 2:38 PM EDT Body Mass Index 40.06 07/18/2023 2:38 PM EDT Plan of Treatment Not on file Insurance [facility] Care Teams Community Development Planner Relationship Specialty Start Date End Date Tommy Rosen MD [address] [facility] [address] [place] [address] PCP - General Family Medicine 07/10/23
--- OUTSIDE RECORDS SUMMARY | 2024-08-10 09:42 | XMS_ITS | Encounter Summary ---
Author Organization [facility] Address [address] [place] [address] Phone Care Team Providers Care Lining Caser Name Role Phone Dory Wells Primary Care Provider + Encounter Details Date Type Department Care Team (Late st Contact Info) Description 11/19/2023 Community Care Management [facility] Orthopaedic [facility], [facility]. [address] [place] [address] [facility] Axel PhysicianMD [address] [place], [place] [id number] Social History Tobacco Use Types Packs/Day Years [...] on filedocumented in this encounter Care Teams Lining Caser Relationship Specialty Start Date End Date Dory Wells APRN-CNP [address] [place] [address] PCP - General 09/09/12 documented as of this encounter
--- OUTSIDE RECORDS SUMMARY | 2024-08-10 09:42 | XMS_ITS | Encounter Summary ---
Author Organization [facility] Address [address] [place] [address] Phone Care Team Providers Care Primary Care Sales Representative Name Role Phone Dory Wells Primary Care Provider + Encounter Details Date Type Department Care Team (Late st Contact Info) Description 09/20/2023 Scanned Document [facility] [address] [place] [address] Salma Guzman MD [address] [facility] [address] [place] [address] Social History Tobacco Use Types Packs/Day Years [...] on filedocumented in this encounter Care Teams Primary Care Sales Representative Relationship Specialty Start Date End Date Dory Wells APRN-CNP [address] [place] [address] PCP - General 09/09/12 documented as of this encounter
--- OUTSIDE RECORDS SUMMARY | 2024-08-10 09:42 | XMS_ITS | Encounter Summary ---
Author Organization [facility] Address [address] [place] [address] Care Team Providers Care Prosthodontist Name Role Phone Tommy Rosen Unavailable Sukhwinder Stockton DO Primary Care Provider [phone] Ppio Calixto DO Primary Care Provider [phone] Sonia Vera RN Unavailable Unavailable Encounter Details Date Type Department Care Team (Late st Contact Info) Description 07/02/2023 Abstract [facility] [address] [facility] [address] [place] [address] Tommy Rosen PA [address] [facility] [address] [place] [address] Social History Tobacco Use Types Packs/Day [...] How often do you attend chur or confucianist services? Patient declined 09/26/2022 Do you belong [...] Recorded Patient Health Questionnaire-2 Score 0 09/26/2022 [facility] of Occupat ional Health - [...] place to sleep or slept in a detention (including now)? No 09/26/2022 Comments No Sex [...] [facility] [address] [place] [address] Natalee Moe MD [address] [place] [address] documented as of this encounter Visit Diagnoses Not on filedocumented in this encounter Care Teams Prosthodontist Relationship Specialty Start Date End Date Sukhwinder Stockton DO [address] [place] [address] PCP - General Family Medicine 11/29/22 09/26/23 Pipo Calixto DO [address] [place] [address] PCP - General Family Medicine 09/27/23 Tommy Rosen PA [address] [place] [address] Physician Roll Scale Man Family Medicine 08/10/22 Sonia Vera, RN Registered Nurse Family Medicine 01/21/24 01/21/24 documented as of this encounter
--- OUTSIDE RECORDS SUMMARY | 2024-08-10 09:42 | XMS_ITS | Continuity of Care Document ---
Author Organization [facility] Address [address] [address] [place] [address] Phone [phone] Care Team Providers Care Campaign Fundraiser Name Role Phone VAIBHAV JOSEPH M.D. Care [...] SIG Qnty Indications Ordering Provider Date Klor-Con [id number] Tablets ER Take 1 Tablet (10 Meq) By Mouth Daily as Needed (On Days When Lasix Is Taken) DO Unknown [id number] Tablets Take 1 Tablet By Mouth In The Morning, 1 Tablet In The Evening And 1 Tablet AT B Unknown Ozempic (0.25 Or 0.5 MG/Dose)2mg/3ML Solution Pen-Inject Please See Attached For Detailed Directions Unknown Ejutlnsqqy83dk Tablets Take 1 Tablet By Mouth Daily as Needed (Lower Extremity Edema) Unknown Duloxetine [id number] Caps DR Part Take 1 Capsule By Mouth In The Morning. DO Not Crush Or Chew. Unknown Alprazolam0.5mg Tablets Take 1 Tablet (0.5 MG) By Mouth as Needed AT Bedtime For Anxiety Unknown [id number] Tablets Take 1 Tablet By Mouth Every Day Unknown Atorvastatin Ygymupd42xb Tablets Take 1 Tablet By Mouth AT Bedtime Unknown Slkbyamugsyyekpbrgs72 mg Tablets qd Unknown Clopidogrel Maddndfwu46tu Tablets Take 1 Tablet By Mouth Every Day Unknown Bisoprolol Fumarate/Hydrochlorot hiazide2.5-6.25mg Tablets Take 1 Tablet By Mouth Every Day Unknown Wfnprdhavt725ef Capsules Take 1 Capsule By Mouth In The Morning And AT Bedtime Unknown Gfwavfocu824esl Tablets Take 1 Tablet By Mouth Every Day Unknown
--- OUTSIDE RECORDS SUMMARY | 2024-08-10 09:42 | XMS_ITS | Encounter Summary ---
Author Organization [facility] Address [address] [facility] [place] [address] Care Team Providers Care Jazz Musician Name Role Phone Tommy Rosen Unavailable Pipo Calixto DO Primary Care Provider [phone] Reason for Visit * Reason Onset Date Comments Med Refill 07/27/2024 Encounter Details Date Type Department Care Team (Late st Contact Info) Description 07/27/2024 Refill [facility] [address] [facility] [address] [place] [phone] Pipo Calixto DO [address] [facility] [address] [place] [address] Chronic pain syndrome; Psychophysiological insomnia Social [...] any clubs o r organizations such as holiness groups, unions, fraternal or athletic groups, or [...] Recorded Patient Health Questionnaire-2 Score 0 09/26/2022 [facility] of Occupat ional Health - Occupational [...] Office Visit [facility] DERM [address] [facility] [address] [place] [address] Natalee Moe MD [address] [facility] [address] [place] [address] documented as of this encounter Visit Diagnoses Diagnosis Chronic pain syndrome Psychophysiological insomnia Persistent disorder of initiating or maintaining sleep documented in this encounter Care Teams Jazz Musician Relationship Specialty Start Date End Date Pipo Calixto DO [address] [facility] [address] [place] [address] PCP - General Family Medicine 09/27/23 Tommy Rosen PA [address] [facility] [address] [place] [id number] Physician Wet Cotton Feeder Family Medicine 08/10/22 documented as of this encounter
--- OUTSIDE RECORDS SUMMARY | 2024-08-10 09:42 | XMS_ITS | Clinical Summary ---
Author Organization [facility] Address [address] [place] [address] Phone Care Team Providers Care Telephone Answerer Name Role Phone Dory Wells Rojelio DIVIDER OPERATOR-CRATE OPENER Primary Care Provider + Social History Tobacco [...] Screening 1960 Lipid Panel 1960 Sigmoidoscopy 1960 MMR Vaccines (1 of 1 - [...] Vaccine ( season) 2023 01/06/2021, 03/31/2020, 03/03/2020 Yearly Adult Physical 05/15/2024 05/15/2023 Influenza Vaccine (Season Ended) 2024 11/29/2022, 11/30/2021, [...] patient's age to complete this topic Insurance [facility] Care Teams Telephone Answerer Relationship Specialty Start Date End Date Dory Wells, DIVIDER OPERATOR-SCARLET [address] [facility] [address] [place] [address] PCP - General 09/09/12
--- OUTSIDE RECORDS SUMMARY | 2024-08-10 09:42 | XMS_ITS | Encounter Summary ---
Author Organization [facility] Address [address] [place] [address] Care Team Providers Care Meat Boner Name Role Phone Tommy Rosen Unavailable Pipo Calixto DO Primary Care Provider [phone] Sonia Vera RN Unavailable Unavailable Encounter Details Date Type Department Care Team (Late st Contact Info) Description 10/23/2023 Abstract [facility] [address] [place] [address] Pipo Calixto DO [address] [place] [address] Social History Tobacco Use Types [...] often do you attend chur ch or presybeterian services? Patient declined 09/26/2022 Do you belong to any clubs o r organizations such as oriental orthodox groups, unions, fraternal or athletic groups, [...] Recorded Patient Health Questionnaire-2 Score 0 09/26/2022 [facility] - Occupational Stress Questionnaire Answer Date Recorded [...] place to sleep or slept in a chcf (including now)? No 09/26/2022 Comments No Sex [...] Visit [facility] [address] [place] [phone] Natalee Moe MD [address] [place] [address] documented as of this encounter Visit Diagnoses Not on filedocumented in this encounter Care Teams Meat Boner Relationship Specialty Start Date End Date Pipo Calixto DO [address] [place] [address] PCP - General Family Medicine 09/27/23 Tommy Rosen PA [address] [place] [address] Physician Project Manager/Design Manager Family Medicine 08/10/22 Sonia Vera, NII Registered Nurse Family Medicine 01/21/24 01/21/24 documented as of this encounter
--- OUTSIDE RECORDS SUMMARY | 2024-08-10 09:42 | XMS_ITS | Clinical Summary ---
Author Organization [facility] Address [address] [place] [address] Care Team Providers Care Fabricating Machine Operator Name Role Phone Tommy Rosen MD Primary Care Provider [phone] Allergies Active Allergy Reactions Criticality Noted Date [...] mouth once daily as directed. Active MULTIVIT,[id number]-F [id number] ORAL Take by mouth. Active B6/folic/B12/cof fee/phosphatid [...] OR CHEW. 90 capsule 1 08/12/2023 Active Family History Medical History Relation Name Comments Diabetic kidney disease Father Colon cancer Mother Factor V Leiden deficiency Other s iblings and grandchildren Relation Name Status Comments Father Mother Other Social History Tobacco Use Types Packs/Day Years [...] 07/18/2023 2:38 PM EDT Plan of Treatment Health Maintenance Due Date Last Done Comments CT Colonography 1960 Colonoscopy 1960 Colorectal Cancer Screening 1960 FIT-DNA 1960 FIT 1960 FOBT 1960 Sigmoidoscopy 1960 Depression Screening 1972 Pap Smear 1981 Adult Tetanus 1982 Cervical Cancer Screening 1990 HPV/Cotest 1990 Mammogram 2000 COVID-19 Vaccine ( season) 2023 Influenza Vaccine (Season Ended) 2024 11/29/2022, 11/30/2021, 11/21/2020, Additional history exists Zoster Vaccines Completed 12/27/2019, 10/24/2019 HIB Vaccines Aged Out No longer eligi ble based on patient's age to complete this topic HPV Vaccines Aged Out No longer eligi ble based on patient's age to complete this topic IPV Vaccines Aged Out No longer eligi ble based on patient's age to complete this topic Meningococcal B Vaccine Aged Out No l onger eligible based on patient's age to complete this topic Meningococcal Vaccine Aged Out No emily merary eligible based on patient's age to complete this topic Pneumococcal Vaccine: Pediatrics (0 to 5 Years) and At-Risk Patients (6 to 64 Years) Aged Out No longer eligible based on patient's age to complete this topic Rotavirus Vaccines Aged Out No longer eligible based on patient's age to complete this topic Insurance [facility] Care Teams Fabricating Machine Operator Relationship Specialty Start Date End Date Tommy Rosen MD [address] [facility] [address] [place] [address] PCP - General Family Medicine 07/10/23
--- OUTSIDE RECORDS SUMMARY | 2024-08-10 09:42 | XMS_ITS | Encounter Summary ---
Author Organization [facility] Address [address] [place] [address] Care Team Providers Care Picture Painter Name Role Phone Tommy Rosen Unavailable Sukhwinder Stockton DO Primary Care Provider [phone] Pipo Calixto DO Primary Care Provider [phone] Sonia Vera RN Unavailable Unavailable Encounter Details Date Type Department Care Team (Late st Contact Info) Description 07/26/2023 Orders Only [facility] [address] [place] [address] Tommy Rosen PA [address] [place] [address] Social History Tobacco Use Types [...] Recorded Patient Health Questionnaire-2 Score 0 09/26/2022 [facility] of Occupat ional Health - Occupational Stress [...] Office Visit [facility] [address] [place] [address] Natalee Moe MD [address] [place] [address] documented as of this encounter Visit Diagnoses Not on filedocumented in this encounter Care Teams Picture Painter Relationship Specialty Start Date End Date Sukhwinder Stockton DO [address] [place] [address] PCP - General Family Medicine 11/29/22 09/26/23 Pipo Calixto DO [address] [place] [address] PCP - General Family Medicine 09/27/23 Tommy Rosen PA [address] [place] [address] Physician Reimbursement Analyst Family Medicine 08/10/22 Sonia Vera, RN Registered Nurse Family Medicine 01/21/24 01/21/24 documented as of this encounter
--- OUTSIDE RECORDS SUMMARY | 2024-08-10 09:42 | XMS_ITS | Encounter Summary ---
Author Organization [facility] Address [address] [place] [facility] [place] [address] Care Team Providers Care Restaurant Manager Name Role Phone Tommy Rosen Unavailable Sukhwinder Stockton DO Primary Care Provider [phone] Pipo Calixto DO Primary Care Provider [phone] Sonia Vera RN Unavailable Unavailable Encounter Details Date Type Department Care Team (Late st Contact Info) Description 04/25/2023 Abstract [facility] DERM [address] [facility] [address] [place] [address] Natalee Moe MD [address] [facility] [address] [place] [address] Social History Tobacco Use Types Packs/Day Years [...] week 09/26/2022 How often do you attend [facility] or baptist services? Patient declined 09/26/2022 Do you belong to any clubs o r organizations such as religious groups, unions, fraternal or athletic groups, or [...] Recorded Patient Health Questionnaire-2 Score 0 09/26/2022 [facility] of Occupat ional Health - Occupational [...] DERM [address] [place] [address] Natalee Moe MD [address] [place] [address] documented as of this encounter Visit Diagnoses Not on filedocumented in this encounter Care Teams Restaurant Manager Relationship Specialty Start Date End Date Sukhwinder Stockton DO [address] [place] [address] PCP - General Family Medicine 11/29/22 09/26/23 Pipo Calixto DO [address] [place] [address] PCP - General Family Medicine 09/27/23 Tommy Rosen PA [address] [place] [address] Physician Manager Agricultural Family Medicine 08/10/22 Sonia Vera, RN Registered Nurse Family Medicine 01/21/24 01/21/24 documented as of this encounter
[2024-08-10 09:51] VITALS: BP 123/84; PULSE 82; TEMP 36.4; O2SAT 99
[2024-08-10 09:56] LABS: Glucometer 115 mg/dL (74-106)
[2024-08-10 10:31] VITALS: PULSE 79; O2SAT 97
[2024-08-10 10:33] VITALS: BP 159/73; PULSE 78; O2SAT 98
[2024-08-10] MEDS: 0.9 % SODIUM CHLORIDE 10 ML SYRINGE - SALINE FLUSH INJ (10:33)
[2024-08-10] MEDS: IOHEXOL 240 MG/ML - 10 ML VIAL INJ (10:33)
[2024-08-10] MEDS: BUPIVACAINE HCL 0.25% PF 25 MG/10 ML VIAL 2 ML INJ (10:33)
[2024-08-10] MEDS: LIDOCAINE HCL 2% 400 MG/20 ML MDV INJ (10:34)
[2024-08-10] MEDS: METHYLPREDNISOLONE ACETATE 80 MG/ML VIAL INJ (10:34)
[2024-08-10 10:35] VITALS: BP 146/74
--- NOTE | 2024-08-10 10:35 | P.ON_ITS ---
Date of procedure: 08/10/24 Pre-op diagnosis: Pain due to lumbar stenosis with neurogenic claudication Post-op diagnosis: same as pre-op Procedure: Procedure: Left L4-5, L5-S1 transforaminal epidural steroid injection Medications: Bupivacaine 0.25% 2cc, lidocaine 2% 1cc, depomedrol 80mg The patient was seen and examined in the preoperative holding area.? Informed consent was obtained and placed on the chart.? Patient was brought to the medical procedure unit and placed in the prone position where a timeout was completed verifying the correct patient, procedure site, position, and planned special equipment using sterile aseptic technique.? Under direct fluoroscopic visualization a 25-gauge Quincke tipped spinal needle was advanced to the designated neural foramen where contrast dye was injected to show adequate spread.? The needle was inserted at level left L4-5. There was no evidence of vascular or adverse uptake.? Epidural spread was appreciated.? The above- mentioned injectate was then placed in a 1.5 mL aliquot preceded by negative aspiration.? The needle was removed. The needle was inserted and the procedure repeated at level left L5-S1.? The surgery site was covered.? Patient was taken to the postprocedural recovery area and monitored for an appropriate length of time before found suitable for discharge in the accompaniment of a responsible adult. Anesthesia: Local Surgeon: Heaven Rae Pathology: none sent Condition: stable Disposition: no change
== END 2024-08-10 10:38 | disposition home or self-care (01) ==
LOC: SURGOUT 09:39
PROVIDERS: Visit Provider Anesthesiology
DX: M54.50 Low back pain, unspecified (principal); M48.062 Spinal stenosis, lumbar region with neurogenic claudication; E11.8 Type 2 diabetes mellitus with unspecified complications
CPT/HCPCS: 36415; 64483; 64484; 82948; J0665; J1010; Q9966

== ENCOUNTER 2024-09-02 10:35 | Outpatient (OUT) | payer BC, SELFPAY ==
--- OUTSIDE RECORDS SUMMARY | 2020-03-31 07:30 | XMS_ITS | Continuity of Care Document ---
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 [address], [place], [id number], [place]. tel:[phone] [facility], [address] [place] [address], [id number], tel:[phone] COVID [facility] No Information Clem SINGLETON Reyes. [address], [place], [id number], [place]. tel:[phone] Family History Family Member Type Diagnosis Age At Onset No Information Immunizations Vaccine Date Status Comments Moderna COVID administered Source: New Im munization Record Moderna COVID administered Source: New Im munization Record Payers Payer name Insurance type Covered green party ID Authoriza tion(s) [employer] CI [id number] [employer] CI [id number] [facility] [id number] Social History Type Description Quantity Date Captured Comments Alcohol Use Details Unknown Caffeine Use Details Unknown Tobacco Use Status No Information Smoking Status No Information Sex Female Sexual Orientation Don't Know Gender Identity Female Chief Complaint And Reason For Visit No Information Reason For Referral Reason For Referral No Information History Of Present Illness Encounter Date Complaint History Of Prese nt Illness No Information Functional Status Date Functional Assessmen t No Information Instructions Date Instruction Additional Infor mation No Information Assessments Type Assessment Date No Information Patient Care Teams Name Effective Dates (start - stop) Status Members No Information
--- OUTSIDE RECORDS SUMMARY | 2024-09-02 10:37 | XMS_ITS | Encounter Summary ---
Author Organization [facility] Address [address] [place] [address] Care Team Providers Care Family Nurse Name Role Phone Tommy Rosen Unavailable Pipo Calixto DO Primary Care Provider [phone] Sonia Vera RN Unavailable Unavailable Encounter Details Date Type Department Care Team (Late st Contact Info) Description 10/23/2023 Abstract [facility] [address] [place] [address] Pipo Calixto DO [address] [place] [address] Social History Tobacco Use Types [...] often do you attend chur ch or mormon services? Patient declined 09/26/2022 Do you belong to any clubs o r organizations such as catholic groups, unions, fraternal or athletic groups, or [...] Recorded Patient Health Questionnaire-2 Score 0 09/26/2022 [facility] - Occupational Stress Questionnaire Answer [...] Office Visit [facility] [address] [place] [address] Natalee Moe MD [address] [place] [address] documented as of this encounter Visit Diagnoses Not on filedocumented in this encounter Care Teams Family Nurse Relationship Specialty Start Date End Date Pipo Calixto DO [address] [place] [address] PCP - General Family Medicine 09/27/23 Tommy Rosen PA [address] [place] [address] Physician Timber Setter Family Medicine 08/10/22 Sonia Vera, NII Registered Nurse Family Medicine 01/21/24 01/21/24 documented as of this encounter
--- OUTSIDE RECORDS SUMMARY | 2024-09-02 10:37 | XMS_ITS | Clinical Summary ---
Author Organization [facility] Address [facility] [place] [address] Care Team Providers Care Packer Name Role Phone Tommy Rosen PA-C Unavailable [phone] Pipo Calixto DO Primary Care Provider Vaibhav Hatch MD Unavailable [phone] Allergies Active Allergy Reactions Criticality Noted Date [...] KLOR-CON M10 10 mEq tablet 4 Active Morley-3 Fatty Acids, FISH OIL, 360-1,200 mg cap [...] drink = 0.6 oz pur e alcohol) [facility] Utilities Answer Date Recorded In the past 12 months has e [employer], gas, oil, or water [employer] threatened to shut off services in your [...] were you homeless or living in a detention (including now)? No 01/02/2024 Area Deprivation Index Answer Date Primo rded National Score (1-100), lower number is lower ri sk 74 11/18/2023 State Score (1-10), lower number is lower risk 6 11/18/2023 Data from: https://www.neighborhoodatlas.medicine.[facility].edu/. Last address used for calculation [address] 11/18/2023 Comments No Sex and Gender [...] season) 2023 01/06/2021, 03/31/2020, 03/03/2020 Influenza Vaccine (#1) 2024 , 11/30/2021, 11/21/2020, Additional history exists Mammogram Screening 12/11/2024 12/12/2023, 12/12/2023, 09/17/2022, Additional history exists Diabetes Screening 01/01/2027 01/02/2024, 1 , 12/11/2023, Additional history exists Shingrix Vaccine Completed 12/27/2019, 06/2019, 10/23/2019 Goals Goal Patient Goal Type Associated Problems Recent Progress Patient-Stated? Author Blood Pressure < 130/80 Blood Pressure 124/59(2023 11:04 AM EST) No Tab Salazar MD Medical Devices Implanted Type Area Director Specialty Device Identifier Shelf Expiration Date Model / Serial / Lot Insert Triathlon 3 9mm Tibial Bearing Cruciate Retain Sterile Knee - [id number] Implanted:Qty: 1 on 01/01/2024 at [facility] Joint - Knee Right: Bone - Knee [facility] [employer] 07/22/2028 [id number] / / [id number] Baseplate Triathalon 3 Tritanium 44mm 67mm Tibial Sterile Latex Free - [id number] Implanted:Qty: 1 on 01/01/2024 at [facility] Joint - Knee Right: Bone - Knee [facility] [employer] 08/17/2028 [id number] / / [id number] Component Triathlon 3 Pa Femoral Cruciate Retain Bead Knee Right - [id number] Implanted:Qty: 1 on 01/01/2024 at [facility] Joint - Knee Right: Bone - Knee [facility] [employer] 11/12/2028 [id number] / / [id number] Component 32mm Tritanium 10mm Patellar Asymmetric - [id number] Implanted:Qty: 1 on 01/01/2024 at [facility] Joint - Knee Right: Bone - Knee [facility] [employer] 09/24/2028 [id number] / / [id number] Procedures Procedure Name Priority Date/Time Associated Diagnosis Comments BASIC METABOLIC PANEL Routine 01/02/2024 3:57 AM EST from Last 3 Months or Most Recently Relevant to Health Maintenance Results * (ABNORMAL) BASIC METABOLIC PANEL (01/02/2024 3:57 AM EST) [facility] Glucose 152(H) 74 - 99 mg/dL 01/02/2024 5:30 AM EST [facility] Comment: The [place] Diabetes Association (ADA) provides guidance for cutoff [...] Standards of Medical Care in Diabetes 2016, [place] Diabetes Association. Diabetes Care. 2016.39(Suppl 1). BUN 21 7 - 21 mg/dL 01/02/2024 5:30 AM EST [facility] Creatinine 0.85 0.58 - 0.96 mg/dL 01/02/2024 5:30 AM [facility] Sodium 141 136 - 144 mmol/L 01/02/2024 5:30 AM [facility] Potassium 3.5(L) 3.7 - 5.1 mmol/L 01/02/2024 5:30 AM [facility] Chloride 103 98 - 107 mmol/L 01/02/2024 5:30 AM [facility] CO2 28 22 - 30 mmol/L 01/02/2024 5:30 AM [facility] Anion Gap 10 8 - 15 mmol/L 01/02/2024 5:30 AM [facility] Calcium, Total 9.2 8.5 - 10.2 mg/dL 01/02/2024 5:30 AM [facility] Estimated Glomerular Filtration Rate 77 >=60 mL/min/1. 73m 01/02/2024 5:30 AM [facility] Comment:Estimated Glomerular Filtration Rate (eGFR) [...] Vaibhav Hatch MD LABORATORY Final Re sult [facility] [address] [place] [address], from Last 3 Months or Most Recently Relevant to Health Maintenance Insurance [place] [employer] PPO Member Subscriber Plan / Payer (Ef fective 2022-Present) Name:Carolynn Givens Member ID:[id number] Relation to Subscriber:Self Name:Carolynn Givens Subscriber ID:[id number] Payer ID:[id number] (NA) Type:PPO Address: [facility] [id number] [place] [id number] Care Teams Packer Relationship Specialty Start Date End Date Pipo Calixto DO [address] [place] [address] PCP - General Family Medicine 09/27/23 Tommy Rosen, PAKathiaC [address] [place] [address] Physician Motor Bike Mechanic 06/18/23 [place] [address] [place] [address] Surgeon Orthopedics 11/19/23
--- OUTSIDE RECORDS SUMMARY | 2024-09-02 10:37 | XMS_ITS | Encounter Summary ---
Author Organization [facility] Address [address] [place] [address] Care Team Providers Care Printer Small Print Shop Name Role Phone Tommy Rosen PA-C Unavailable [phone] Pipo Calixto DO Primary Care Provider [phone] Vaibhav Hatch MD Unavailable [phone] Source Comments In the event this information is protected by the Federal Confidentiality of Alcohol and Drug AbusePatient Records regulations: The Federal rules restrict any use of the information to criminally investigate or prosecute any alcohol or drug abuse patient.[facility] Encounter Details Date Type Department Care Team (Late st Contact Info) Description 12/18/2023 Patient Msg [facility] [place] [address] [place] [address] Provider, Ccf Important Reminder for [...] is lower risk 6 11/18/2023 Data from: https://www.neighborhoodatlas.[facility].edu/. Last address used for calculation [address] [...] on filedocumented in this encounter Care Teams Printer Small Print Shop Relationship Specialty Start Date End Date Pipo Calixto DO [address] [place] [address] PCP - General Family Medicine 09/27/23 Tommy Rosen, PA-C [address] [place] [address] Physician Biochemistry Teacher 06/18/23 [place] [address] [place] [address] Surgeon Orthopedics 11/19/23 documented as of this encounter
--- OUTSIDE RECORDS SUMMARY | 2024-09-02 10:37 | XMS_ITS | Encounter Summary ---
Author Organization [facility] Address [address] [facility] [place] [address] Care Team Providers Care Java Sdet Name Role Phone Tommy Rosen Unavailable Sukhwinder Stockton DO Primary Care Provider [phone] Pipo Calixto DO Primary Care Provider [phone] Sonia Vera RN Unavailable Unavailable Encounter Details [...] week 09/26/2022 How often do you attend [facility] or hindu services? Patient declined 09/26/2022 Do you belong [...] Questionnaire-2 Score 0 09/26/2022 [facility] - Occupational Stress Questionnaire Answer [...] place to sleep or slept in a fdc (including now)? No 09/26/2022 Comments No Sex [...] DERM [address] [place] [address] Natalee Moe MD [address] [place] [address] documented as of this encounter Procedures Procedure Name Priority Date/Time Associated Diagnosis Comments [facility] US CAROTID ARTERY DUPLEX BILATERAL 09/25/2023 9:40 AM EDT documented in this encounter Results * [facility] US CAROTID ARTERY DUPLEX BILATERAL (09/25/2023 9:40 AM EDT) Anatomical Region Laterality Modality Other 09/25/2023 9:40 AM EDT Narrative 09/25/2023 11:25 AM EDT Preliminary Cardiology Report [facility] [address] [place] [address] Preliminary Vascular Lab Report [facility] US CAROTID ARTERY DUPLEX BILATERAL Patient Name: CAROLYNN Wilburn [id number] [address] Physician: Study Date: 09/25/2023 Ordering [id number] JACK BARBOSA Provider: MRN/PID: [id number] Fellow: Technologist: Carolynn Olvera RVT, RDMS Date of : 1960 Technologist 2: Gender: F Admission Outpatient Location [facility] Status: Performed: Diagnosis/ICD: Occlusion and stenosis of bilateral carotid arteries-I65.23 Indication: Carotid Occlusion/Stenosis w/o infarct CPT Codes: 40861 Cerebrovascular Carotid Duplex scan complete Pertinent History: [...] Radiology, Radiologist, - 09/25/2023 Preliminary Cardiology Report [facility] [address] [facility] [place] [address] Preliminary [facility] CAR[facility]ID ARTERY DUPLEX BILATERAL Patient Name: CAROLYNN Wilburn [id number] [address] [place] Physician: Study Date: 09/25/2023 Ordering [id number] J[address] MACIEL Provider: MRN/PID: [id number] Fellow: Technologist: Carolynn Tejeda RDMS Date of : 1960 Technologist 2: Gender: F Admission Outpatient Location [facility] Status: Performed: Diagnosis/ICD: Occlusion and stenosis of bilateral carotidarteries-I65.23 Indication: Carotid Occlusion/Stenosis w/o infarct CPT Codes: 45470 Cerebrovascular Carotid Duplex scan complete Pertinent History: [...] on filedocumented in this encounter Care Teams Java Sdet Relationship Specialty Start Date End Date Sukhwinder Stockton DO [address] [place] [address] PCP - General Family Medicine 11/29/22 09/26/23 Pipo Calixto DO [address] [place] [address] PCP - General Family Medicine 09/27/23 Tommy Rosen PA [address] [place] [address] Physician Insulation Technician Family Medicine 08/10/22 Sonia Vera, RN Registered Nurse Family Medicine 01/21/24 01/21/24 documented as of this encounter
--- OUTSIDE RECORDS SUMMARY | 2024-09-02 10:37 | XMS_ITS | Encounter Summary ---
Author Organization [facility] Address [address] [place] [address] Care Team Providers Care Java Software Architect Name Role Phone Tommy Rosen Unavailable Tommy Rosen Primary Care Provider [phone] Sukhwinder Stockton DO Primary Care Provider [phone] Pipo Calixto DO Primary Care Provider + [phone] Sonia Vera RN Unavailable Unavailable Encounter Details Date Type Department Care Team (Late st Contact Info) Description 09/26/2022 Abstract [facility] [address] [facility] [address] [place] [phone] Tommy Rosen PA [address] [facility] [address] [place] [address] Social History Tobacco Use Types Packs/Day [...] How often do you attend chur or evangelical services? Patient declined 09/26/2022 Do you belong to any clubs o r organizations such as judaism groups, unions, fraternal or athletic groups, or [...] Recorded Patient Health Questionnaire-2 Score 0 09/26/2022 [facility] [place] of Occupat ional Health - Occupational Stress [...] place to sleep or slept in a senior care (including now)? No 09/26/2022 Comments No Sex [...] [address] [place] [address] Natalee Moe MD [address] [place] [address] documented as of this encounter Visit Diagnoses Not on filedocumented in this encounter Care Teams Java Software Architect Relationship Specialty Start Date End Date Tommy Rosen PA [address] [place] [address] PCP - General Family Medicine 09/11/22 11/28/22 Sukhwinder Stockton DO [address] [place] [address] PCP - General Family Medicine 11/29/22 09/26/23 Pipo Calixto DO [address] [place] [address] PCP - General Family Medicine 09/27/23 Tommy Rosen PA [address] [place] [address] Physician Top Precipitator Operator Helper Family Medicine 08/10/22 Sonia Vera, RN Registered Nurse Family Medicine 01/21/24 01/21/24 documented as of this encounter
--- OUTSIDE RECORDS SUMMARY | 2024-09-02 10:37 | XMS_ITS | Clinical Summary ---
Author Organization [facility] Address [address] [facility] [facility] [place] [address] Care Team Providers Care Forms Examiner Name Role Phone Tommy Rosen Unavailable Pipo Calixto DO Primary Care Provider [phone] Allergies Active Allergy Reactions Criticality Noted Date [...] (10 mg) before bedtime. 270 tablet 3 04/24/19 25 Active Tirzepatide (Mounjaro) 2.5 MG/0.5ML solution auto-injectorIndic ations:Type 2 diabetes mellitus without complication, without long-term current use of insulin (HCC) Inject 2.5 mg under the skin 1 (one) time per week 6 mL 1 06/04/19 25 025 Active bisoprolol-hydroCH LOROthiazide (Ziac) 2.5-6.25 MG tabletIndications: Benign hypertension Take 1 tablet by mouth Daily 90 tablet 1 06/04/19 25 Active levothyroxine (Synthroid) 125 MCG tabletIndications: Other specified hypothyroidism Take 1 tablet (125 mcg) by mouth Daily 90 tablet 3 06/04/19 25 Active clopidogrel (Plavix) 75 MG tabletIndications: Occlusion and stenosis of left carotid artery Take 1 tablet (75 mg) by mouth Daily 90 tablet 3 06/04/19 25 Active pregabalin (Lyrica) 300 MG capsuleIndications :Neuralgia and neuritis, unspecified TAKE 1 CAPSULE (300 MG) BY MOUTH IN THE MORNING AND AT BEDTIME 180 capsule 1 06/04/19 25 Active atorvastatin (Lipitor) 80 MG tabletIndications: Mixed hyperlipidemia Take 1 tablet (80 mg) by mouth at bedtime 90 tablet 3 06/04/19 25 Active clindamycin (Cleocin) 300 MG capsuleIndications :Need for antibiotic prophylaxis for dental procedure Take 2 capsules (600 mg) by mouth if needed (prior to dental procedure) 10 capsule 07/01/19 25 Active acyclovir (Zovirax) 400 MG tabletIndications: Herpes Take 1 tablet (400 mg) by mouth Daily 90 tablet 1 07/15/19 25 Active DULoxetine (Cymbalta) [address] capsuleIndications :Chronic pain syndrome Take 1 capsule (30 mg) by mouth Daily Do not crush or chew. 90 capsule 3 07/28/19 25 Active ALPRAZolam (Xanax) 0.5 MG tabletIndications: Psychophysiologica l insomnia TAKE 1 TABLET BY MOUTH NEEDED AT BEDTIME FOR ANXIETY 30 tablet 08/28/19 25 Active ALPRAZolam (Xanax) 0.5 MG tabletIndications: Psychophysiologica l insomnia Take 1 tablet (0.5 mg) by mouth as needed at bedtime for anxiety 30 tablet 07/28/19 25 025 Discontinued Active Problems Problem Noted Date Diagnosed Date Contracture of knee joint 02/20/2024 Factor V Leiden ([facility]) 12/11/2023 Carotid stenosis, bilateral 09/26/2022 Hypothyroidism 09/26/2022 [...] Encounters Date Type Department Care Team Description 08/27/2024 Refill [facility] [address] [place] [phone] Pipo Calixto L, DO Psychophysiological insomnia 07/27/2024 Refill [facility] [address] [place] [phone] Pipo Calixto L, DO Chronic pain syndrome; Psychophysiological insomnia 07/11/2024 Refill [facility] [address] [place] [phone] Pipo Calixto L, DO Herpes 06/30/2024 Orders Only [facility] [address] [place] [phone] Pipo Calixto L, DO Need for antibiotic prophylaxis for dental procedure (Primary Dx) 06/26/2024 Refill [facility] [address] [place] [phone] Pipo Calixto L, DO Psychophysiological insomnia 06/11/2024 3:20 PM EDT Office Visit [facility] [address] [place] [address] Natalee Moe MD Actinic keratosis (Primary Dx); Keloid 06/11/2024 Bamboo flowsheet [facility] [address] [place] [address] Natalee Moe MD 06/11/2024 Travel 06/03/2024 11:40 AM EDT Office Visit [facility] FM [address] [place] [address] Pipo Calixto DO Wellness examination (Primary Dx); Type 2 diabetes mellitus without complication, without long-term current use of insulin (HCC); Benign hypertension ; Other specified hypothyroidism ; Occlusion and stenosis of left carotid artery; Neuralgia and neuritis, unspecified; Mixed hyperlipidemia ; Herpes 06/03/2024 Bamboo flowsheet [facility] [address] [place] [address] Pipo Calixto DO 06/03/2024 Travel from Last 3 Months Immunizations Immunization [...] week 09/26/2022 How often do you attend up health system or amish services? Patient declined 09/26/2022 Do you belong to any clubs o r organizations such as baptism groups, unions, fraternal or athletic groups, or [...] Recorded Patient Health Questionnaire-2 Score 0 09/26/2022 [facility] of Occupat ional Health - Occupational [...] place to sleep or slept in a penitentiary (including now)? No 09/26/2022 Comments No Sex [...] DERM [address] [place] [address] Natalee Moe MD [address] [place] [address] Health Maintenance Due Date Last Done Comments CT Colonography 1960 Colonoscopy 1960 FIT 1960 FOBT 1960 Sigmoidoscopy 1960 Pap Smear 1981 Cervical Cancer Screening 1990 HPV/Cotest 1990 Diabetes: Urine Protein Screening 05/14/2024 05/15/2023, 08/31/2021, 07/28/2020, Additional history exists Diabetes: Hemoglobin A1C 09/02/2024 025, 12/11/2023, 07/23/2023, Additional history exists Colorectal Cancer Screening 09/13/2024 FIT-DNA 09/13/2024 09/13/2021 Influenza Vaccine (#1) 2024 , 11/30/2021, 11/30/2021, Additional history exists Mammogram 12/11/2024 12/12/2023, 07/3 02/2022, 09/17/2022, Additional history exists Diabetes: Retinopathy Screening [...] Cryotherapy, skin lesion (06/11/2024 3:13 PM EDT) us Natalee Moe MD DERM PROCEDURE ORDERABLES Fin al Result * (ABNORMAL) POCT glycosylated hemoglobin (Hb A1C) docked device (06/03/2024 11:57 AM EDT) Hemoglobin A1C 5.9 Blood Venous blood specimen / Unknown 06/03/2024 11:57 AM EDT us Pipo Calixto DO POINT OF CARE TEST [...] Performing Organization Information Site ID: [id number] Name: [employer] Address: [address] [place] [address], [address] [place] [id number] Director: Reddy Bell MD us Tommy LAU LAB URINE ORDERABLES Final Resul t Performing Organization Address City/[facility] Co de Phone Number [facility] * Cologuard® colon cancer screening (09/13/2021) COLOGUARD RESULT REPORTABLE Cancelled - Order Not Applicable [facility] 09/13/2021 us Yovany Neff MD LAB MOLECULAR DIAGNOSTICS JOHNATHAN FITZGERALD Final Result Performing Organization Address City/[facility]/ZIP Co de Phone Number [facility] * Color Fundus Photography - OU - Both Eyes (12/29/2020 12:00 PM EST) Anatomical Region Laterality Modality Head Fundus Photograp hy 12/29/2020 12:0 0 PM EST Narrative 12/29/2020 12:00 PM EST PERFORMED AT [facility] LOCATION:[id number] no diabetic retinopathy Procedure Note CONVERSION, GENERIC - 07/04/2022 PERFORMED AT [facility] LOCATION:[id number] no diabetic retinopathy Sukhwinder Stockton DO OPHTH PHOTOGRAPHY Final Resul t from Last 3 Months or Most Recently Relevant to Health Maintenance Insurance [facility] Care Teams Forms Examiner Relationship Specialty Start Date End Date Pipo Calixto DO [address] [place] [address] PCP - General Family Medicine 09/27/23 Tommy Rosen PA [address] [place] [address] Physician Space Buyer Family Medicine 08/10/22
--- OUTSIDE RECORDS SUMMARY | 2024-09-02 10:37 | XMS_ITS | Encounter Summary ---
Author Organization [facility] Address [address] [place] [address] Care Team Providers Care Ancient Art Curator Name Role Phone Tommy Rosen PA-C Unavailable [phone] Pipo Calixto DO Primary Care Provider [phone] Vaibhav Hatch MD Unavailable [phone] Source Comments In the event this information is protected by the Federal Confidentiality of Alcohol and Drug AbusePatient Records regulations: The Federal rules restrict any use of the information to criminally investigate or prosecute any alcohol or drug abuse patient.[facility] Encounter Details Date Type Department Care Team (Late st Contact Info) Description 12/31/2023 Patient Msg Spine [employer] [address] [place] [address] Provider, Ccf ACTION REQUIRED: Skin Preparation before your surgery Social History Tobacco Use Types Packs/Day Years Used Date Smoking Tobacco: Never Smokeless Tobacco: Never Alcohol Use Standard Drinks/Week Comments Not Currently 0 (1 standard drink = 0.6 oz pur e alcohol) socialy [facility] Utilities Answer Date Recorded In the past 12 months has [employer] electric, gas, oil, or water company threatened [...] any time in the past 12 m [facility], were you homeless or living in a longterm (including now)? No 01/02/2024 Area Deprivation Index Answer Date Primo rded National Score (1-100), lower number is lower ri sk 74 11/18/2023 State Score (1-10), lower number is lower risk 6 11/18/2023 Data from: https://www.neighborhoodatlas.medicine.[facility].edu/. Last address used for calculation [address] [facility] 11/18/2023 Comments No Sex and Gender [...] on filedocumented in this encounter Care Teams Ancient Art Curator Relationship Specialty Start Date End Date Pipo Calixto DO [address] [place] [address] PCP - General Family Medicine 09/27/23 Tommy Rosen PA-C [address] [place] [address] Physician Wound Care Rn 06/18/23 [place] [address] [place] [phone] Surgeon Orthopedics 11/19/23 documented as of this encounter
--- OUTSIDE RECORDS SUMMARY | 2024-09-02 10:37 | XMS_ITS | Encounter Summary ---
Author Organization [facility] Address [address] [facility] [place] [address] Care Team Providers Care Associate Producer Name Role Phone Tommy Rosen Unavailable Pipo Calixto DO Primary Care Provider [phone] Sonia Vera RN Unavailable Unavailable Encounter Details Date Type Department Care Team (Late st Contact Info) Description 12/20/2023 External Result Encounter [facility] External Department Unsolicited Pipo Calixto DO [address] [place] [address] Social History Tobacco Use Types Packs/Day Years [...] How often do you attend chur or muslim services? Patient declined 09/26/2022 Do you belong to any clubs o r organizations such as caodaism groups, unions, fraternal or athletic groups, or [...] Recorded Patient Health Questionnaire-2 Score 0 09/26/2022 [facility] of Occupat ional Health - Occupational [...] place to sleep or slept in a care home (including now)? No 09/26/2022 Comments No [...] SHELBY [address] [place] [address] Natalee Moe MD [address] [facility] [address] [place] [address] documented as of this encounter Procedures Procedure Name Priority Date/Time Associated Diagnosis Comments TRANSTHORACIC ECHO (TTE) COMPLETE 12/20/2023 9:36 AM EDT documented in this encounter Results * Transthoracic echo (TTE) complete (12/20/2023 9:36 AM EDT) Anatomical Region Laterality Modality Heart Ultrasound 12/20/2023 9:36 AM EDT Narrative 12/20/2023 12:56 PM EDT [facility] [place] [address] Echocardiogram Signed Patient: Carolynn Ho MR#: [id number] : 1960 Acct:[id number] Age/Sex: 63 / F ADM Date: 12/20/23 Loc: Room: Type: [facility] Attending Dr: Pipo Calixto DO Ordering Provider: [...] Procedure Note Verito Hallman MD - 12/20/2023 [facility] [place] [address] Echocardiogram Signed Patient: Carolynn Ho [facility]#: [id number] : 1Acct:[id number] Age/Sex: 63 / FADM Date: 12/20/23 Loc: Room:Type: [facility] Attending Dr: Pipo Calixto DO Ordering Provider: [...] on filedocumented in this encounter Care Teams Associate Producer Relationship Specialty Start Date End Date Pipo Calixto DO [address] [address] PCP - General Family Medicine 09/27/23 Tommy Rosen PA [address] [place] [address] Physician Digital Marketer Family Medicine 08/10/22 Sonia Vera, RN Registered Nurse Family Medicine 01/21/24 01/21/24 documented as of this encounter
--- OUTSIDE RECORDS SUMMARY | 2024-09-02 10:37 | XMS_ITS | Encounter Summary ---
Author Organization [facility] Address [address] [place] [address] Care Team Providers Care Buckle Sewer Machine Name Role Phone Tommy Rosen Unavailable Pipo Calixto DO Primary Care Provider [phone] Sonia Vera RN Unavailable Unavailable Encounter Details Date Type Department Care Team (Late st Contact Info) Description 12/20/2023 Abstract [facility] FM [address] [place] [phone] Pipo Calixto DO [address] [place] [address] Social History Tobacco Use Types Packs/Day [...] often do you attend chur ch or tenriism services? Patient declined 09/26/2022 Do you belong [...] Recorded Patient Health Questionnaire-2 Score 0 09/26/2022 [facility] - [facility]ational Stress Questionnaire Answer Date [...] Office Visit [facility] [address] [facility] [place] [address] Natalee Moe MD [address] [place] [address] documented as of this encounter Visit Diagnoses Not on filedocumented in this encounter Care Teams Buckle Sewer Machine Relationship Specialty Start Date End Date Pipo Calixto DO [address] [place] [address] PCP - General Family Medicine 09/27/23 Tommy Rosen PA [address] [place] [address] Physician Tar Man Family Medicine 08/10/22 Sonia Vera, NII Registered Nurse Family Medicine 01/21/24 01/21/24 documented as of this encounter
--- OUTSIDE RECORDS SUMMARY | 2024-09-02 10:37 | XMS_ITS | Encounter Summary ---
Author Organization [facility] Address [address] [place] [address] Care Team Providers Care Children'S Literature Professor Name Role Phone Tommy Rosen Unavailable Sukhwinder Stockton DO Primary Care Provider [phone] Pipo Calixto DO Primary Care Provider [phone] Sonia Vera RN Unavailable Unavailable Encounter Details Date Type Department Care Team (Late st Contact Info) Description 07/26/2023 Orders Only [facility] [address] [place] [address] Tommy Rosen PA [address] [place] [address] Social History Tobacco Use Types [...] How often do you attend chur or voodoo services? Patient declined 09/26/2022 Do [...] Patient Health Questionnaire-2 Score 0 09/26/2022 [facility] of Occupat ional Health - [...] place to sleep or slept in a long term (including now)? No 09/26/2022 Comments No Sex [...] Office Visit [facility] D[facility]M [address] [place] [address] Natalee Moe MD [address] [place] [address] documented as of this encounter Visit Diagnoses Not on filedocumented in this encounter Care Teams Children'S Literature Professor Relationship Specialty Start Date End Date Sukhwinder Stockton DO [address] [place] [address] PCP - General Family Medicine 11/29/22 09/26/23 Pipo Calixto DO [address] [place] [address] PCP - General Family Medicine 09/27/23 Tommy Rosen PA [address] [place] [address] Physician Medical Office Assistant Family Medicine 08/10/22 Sonia Vera, RN Registered Nurse Family Medicine 01/21/24 01/21/24 documented as of this encounter
--- OUTSIDE RECORDS SUMMARY | 2024-09-02 10:37 | XMS_ITS | Encounter Summary ---
Author Organization [facility] Address [address] [place] [address] Care Team Providers Care Leadite Worker Name Role Phone Tommy Rosen Unavailable Pipo Calixto DO Primary Care Provider [phone] Sonia Vera RN Unavailable Unavailable Encounter Details Date Type Department Care Team (Late st Contact Info) Description 01/08/2024 Orders Only [facility] FM [address] [facility] [address] [place] [address] Pipo Calixto DO [address] [facility] [address] [place] [address] Status post total knee replacement, unspecified [...] week 09/26/2022 How often do you attend [facility] or yazidi services? Patient declined 09/26/2022 Do you belong to any clubs o r organizations such as synagogue groups, unions, fraternal or athletic groups, or [...] Recorded Patient Health Questionnaire-2 Score 0 09/26/2022 [facility] of Occupat ional Health - [...] DERM [address] [place] [address] Natalee Moe MD [address] [place] [address] documented as of this encounter Visit Diagnoses Diagnosis Status post total knee replacement, unspecified laterality- Primary Activity of daily living alteration Acute knee pain, unspecified laterality documented in this encounter Care Teams Leadite Worker Relationship Specialty Start Date End Date Pipo Calixto DO [address] [place] [address] PCP - General Family Medicine 09/27/23 Tommy Rosen PA [address] [place] [id number] Physician Mash Processing Operator Family Medicine 08/10/22 Sonia Vera, RN Registered Nurse Family Medicine 01/21/24 01/21/24 documented as of this encounter
--- OUTSIDE RECORDS SUMMARY | 2024-09-02 10:38 | XMS_ITS | Encounter Summary ---
Author Organization [facility] Address [address] [place] [address] Care Team Providers Care Associate Professor Of Physics Name Role Phone Tommy Rosen Unavailable Sukhwinder Stockton DO Primary Care Provider [phone] Pipo Calixto DO Primary Care Provider [phone] Sonia Vera RN Unavailable Unavailable Encounter Details Date Type Department Care Team (Late st Contact Info) Description 07/02/2023 Abstract [facility] FM [address] [facility] [address] [place] [address] Tommy Rosen PA [address] [facility] [address] [place] [address] Social History Tobacco Use Types Packs/Day [...] How often do you attend chur or mosque services? Patient declined 09/26/2022 Do you belong to any clubs o r organizations such as buddhism groups, unions, fraternal or athletic groups, or [...] Recorded Patient Health Questionnaire-2 Score 0 09/26/2022 [facility] of Occupat ional Health - [...] Office Visit [facility]M [address] [place] [address] Natalee Moe MD [address] [place] [address] documented as of this encounter Visit Diagnoses Not on filedocumented in this encounter Care Teams Associate Professor Of Physics Relationship Specialty Start Date End Date Sukhwinder Stockton DO [address] [place] [address] PCP - General Family Medicine 11/29/22 09/26/23 Pipo Calixto DO [address] [place] [address] PCP - General Family Medicine 09/27/23 Tommy Rosen PA [address] [place] [address] Physician Hop Grower Family Medicine 08/10/22 Sonia Vera, RN Registered Nurse Family Medicine 01/21/24 01/21/24 documented as of this encounter
--- OUTSIDE RECORDS SUMMARY | 2024-09-02 10:38 | XMS_ITS | Encounter Summary ---
Author Organization [facility] Address [address] [place] [address] Phone Care Team Providers Care Octave Board Assembler Name Role Phone Dory Wells Primary Care Provider + Encounter Details Date Type Department Care Team (Late st Contact Info) Description 09/20/2023 Scanned Document [facility] [address] [facility] [address] [place] [address] Salma Guzman MD [address] [facility] [address] [place] [address] Social History Tobacco Use Types Packs/Day Years [...] on filedocumented in this encounter Care Teams Octave Board Assembler Relationship Specialty Start Date End Date Dory Wells APRN-CNP [address] [place] [address] PCP - General 09/09/12 documented as of this encounter
--- OUTSIDE RECORDS SUMMARY | 2024-09-02 10:38 | XMS_ITS | Clinical Summary ---
Author Organization [facility] Address [address] [place] [address] Phone Care Team Providers Care Fire Engineer Name Role Phone Dory Wells Rojelio BARREL CHARRER-SALON PROFESSIONAL Primary Care Provider + Social History Tobacco [...] Yearly Adult Physical 05/15/2024 05/15/2023 Influenza Vaccine (#1) 2024 , 11/30/2021, 11/21/2020, Additional history exists Diabetes Screening 07/22/2026 07/23/2023 Zoster Vaccines Completed 12/27/2019, 06/2019, 10/23/2019 HIB Vaccines Aged Out No longer eligi ble based on patient's age to complete this topic HPV Vaccines (No Doses Required) Completed Hepatitis A Vaccines Aged Out No long [...] patient's age to complete this topic Insurance [facility] Care Teams Fire Engineer Relationship Specialty Start Date End Date Dory Wells APRN-SCARLET [address] [place] [address] PCP - General 09/09/12
--- OUTSIDE RECORDS SUMMARY | 2024-09-02 10:38 | XMS_ITS | Encounter Summary ---
Author Organization [facility] Address [address] [facility] [place] [address] Care Team Providers Care Residential Real Estate Sales Manager Name Role Phone Tommy Rosen Unavailable Pipo Calixto DO Primary Care Provider [phone] Reason for Visit * Reason Comments Med Refill Encounter Details Date Type Department Care Team (Late st Contact Info) Description 08/27/2024 Refill [facility] [address] [facility] [address] [place] [id number] Pipo Calixto DO [address] [facility] [address] [place] [address] Psychophysiological insomnia Social History Tobacco Use Types [...] How often do you attend chur or anglican services? Patient declined 09/26/2022 Do you belong to any clubs o r organizations such as jehovah's witness groups, unions, fraternal or athletic groups, or [...] Health Questionnaire-2 Score 0 09/26/2022 [facility] - Occupational [...] place to sleep or slept in a correction (including now)? No 09/26/2022 Comments No Sex [...] Office Visit [facility] [address] [facility] [address] [place] [phone] Natalee Moe MD [address] [facility] [address] [place] [address] documented as of this encounter Visit Diagnoses Diagnosis Psychophysiological insomnia Persistent disorder of initiating or maintaining sleep documented in this encounter Care Teams Residential Real Estate Sales Manager Relationship Specialty Start Date End Date Pipo Calixto DO [address] [place] [address] PCP - General Family Medicine 09/27/23 Tommy Rosen PA [address] [place] [address] Physician Glass Etcher Helper Family Medicine 08/10/22 documented as of this encounter
--- OUTSIDE RECORDS SUMMARY | 2024-09-02 10:38 | XMS_ITS | Continuity of Care Document ---
Author Organization [facility] Address [address] [address] [place] [address] Phone [phone] Care Team Providers Care Skelp Processor Name Role Phone VAIBHAV JOSEPH M.D. Care [...] SIG Qnty Indications Ordering Provider Date Klor-Con [id number] Tablets ER Take 1 Tablet (10 Meq) By Mouth Daily as Needed (On Days When Lasix Is Taken) DO Unknown [id number] Tablets Take 1 Tablet By Mouth In The Morning, 1 Tablet In The Evening And 1 Tablet AT B Unknown Ozempic (0.25 Or 0.5 MG/Dose)2mg/3ML Solution Pen-Inject Please See Attached For Detailed Directions Unknown Oluysrvchn91pq Tablets Take 1 Tablet By Mouth Daily as Needed (Lower Extremity Edema) Unknown Duloxetine SAX47oh Caps DR Part Take 1 Capsule By Mouth In The Morning. DO Not Crush Or Chew. Unknown Alprazolam0.5mg Tablets Take 1 Tablet (0.5 MG) By Mouth as Needed AT Bedtime For Anxiety Unknown Qyiluyazc989ux Tablets Take 1 Tablet By Mouth Every Day Unknown Atorvastatin Rqgrfzy61aj Tablets Take 1 Tablet By Mouth AT Bedtime Unknown Epudwysdnzxdwbwotcp45 mg Tablets qd Unknown Clopidogrel Kjflnsnkh09yu Tablets Take 1 Tablet By Mouth Every Day Unknown Bisoprolol Fumarate/Hydrochlorot hiazide2.5-6.25mg Tablets Take 1 Tablet By Mouth Every Day Unknown Gtulasjvwv929ro Capsules Take 1 Capsule By Mouth In The Morning And AT Bedtime Unknown Qvympbtgq221vgs Tablets Take 1 Tablet By Mouth Every Day Unknown
--- OUTSIDE RECORDS SUMMARY | 2024-09-02 10:38 | XMS_ITS | Encounter Summary ---
Author Organization [facility] Address [address] [place] [address] Phone Care Team Providers Care Stationary Engineer Refrigeration Name Role Phone Dory Wells Primary Care Provider + Encounter Details Date Type Department Care Team (Late st Contact Info) Description 11/19/2023 Community Care Management [facility] Orthopaedic Blood cell Storage, [facility]. [address] [place] [address] [facility] Axel PhysicianMD [address] [place], [place] [id number] Social History Tobacco Use Types Packs/Day Years [...] on filedocumented in this encounter Care Teams Stationary Engineer Refrigeration Relationship Specialty Start Date End Date Dory Wells APRN-CNP [address] [place] [address] PCP - General 09/09/12 documented as of this encounter
--- OUTSIDE RECORDS SUMMARY | 2024-09-02 10:38 | XMS_ITS | Clinical Summary ---
Author Organization [facility] Address [address] [place] [address] Care Team Providers Care Jewelry Bearing Maker Name Role Phone Tommy Rosen MD Primary Care Provider [phone] Allergies Active Allergy Reactions Criticality Noted Date [...] mouth once daily as directed. Active MULTIVIT,MIN52-F [id number] ORAL Take by mouth. Active B6/folic/B12/cof fee/phosphatid (NEURIVA PLUS BRAIN PERFORMANCE ORAL) Take by mouth. Active saccharomyces boulardii (Florastor) 250 mg capsule Take 250 mg by mouth in the morning and at bedtime. Active aspirin 81 mg EC tablet Take 81 mg by mouth at bedtime. Active DULoxetine (Cymbalta) [address] Canaels ns:Chronic low back pain with bilateral sciatica, [...] COVID-19 Vaccine ( season) 2023 Influenza Vaccine (#1) 2024 3, 11/30/2021, 11/21/2020, Additional history exists Zoster Vaccines [...] topic Meningococcal Vaccine Aged Out No emily merray eligible based on patient's age to complete this topic Pneumococcal Vaccine: Pediatrics (0 to 5 Years) and At-Risk Patients (6 to 64 Years) Aged Out No longer eligible based on patient's age to complete this topic Rotavirus Vaccines Aged Out No longer eligible based on patient's age to complete this topic Insurance [facility] Care Teams Jewelry Bearing Maker Relationship Specialty Start Date End Date Tommy Rosen MD [address] [facility] [address] [place] [address] PCP - General Family Medicine 07/10/23
--- OUTSIDE RECORDS SUMMARY | 2024-09-02 10:38 | XMS_ITS | Encounter Summary ---
Author Organization [facility] Address [address] [place] [place] [address] Care Team Providers Care Walking Dragline Operator Name Role Phone Tommy Rosen Unavailable Sukhwinder Stockton DO Primary Care Provider [phone] Pipo Calixto DO Primary Care Provider [phone] Sonia Vera RN Unavailable Unavailable Encounter Details Date Type Department Care Team (Late st Contact Info) Description 04/25/2023 Abstract [facility] [address] [facility] [address] [place] [phone] Natalee Moe MD [address] [facility] [address] [place] [address] Social History Tobacco Use Types Packs/Day Years [...] week 09/26/2022 How often do you attend [facility] or jew services? Patient declined 09/26/2022 Do you belong to any clubs o r organizations such as latter day groups, unions, fraternal or athletic groups, or [...] Recorded Patient Health Questionnaire-2 Score 0 09/26/2022 [facility] - [...] DERM [address] [place] [address] Natalee Moe MD [address] [place] [address] documented as of this encounter Visit Diagnoses Not on filedocumented in this encounter Care Teams Walking Dragline Operator Relationship Specialty Start Date End Date Sukhwinder Stockton DO [address] [place] [address] PCP - General Family Medicine 11/29/22 09/26/23 Pipo Calixto DO [address] [place] [address] PCP - General Family Medicine 09/27/23 Tommy Rosen PA [address] [place] [address] Physician Sugar Coating Hand Family Medicine 08/10/22 Sonia Vera, RN Registered Nurse Family Medicine 01/21/24 01/21/24 documented as of this encounter
--- NOTE | 2024-09-02 11:17 | PM.CN ---
Consult Note: HPI Data of Consult Patient: known to practice within the last 3 years Requesting Physician: Selam Haines NP Primary Care Provider: Non-Staff Physician, MD Consult Narrative Reason for consult: back pain Narrative: Carolynn Ho a pleasant 64 year old female presents for evaluation of chronic back pain. longstanding hx of low back pain secondary to lumbar stenosis and lumbar spondylosis as noted on prior lumbar MRI and xray most severe L4-S1. pt has failed to benefit from > 6 weeks of PT, >6 weeks of provider guided HEP, heat, ice, tylenol, and cannot take NSAIDs on plavix. since last visit she underwent a left L4/5 L5/S1 TFESI for lumbar stenosis with NC, noting significant relief with >90% improvement in pain and functional ability. pain 0/10. cc:: CC: Selam Haines NP Review of Systems ROS Musculoskeletal Denies: back pain, extremity pain or joint pain PFSH PFSH Medical History (Updated 07/29/24 @ 09:12 by Selam Haines NP) Factor 5 Leiden mutation, heterozygous �D68.51 - Activated protein C resistance (ICD-10) Coronary artery disease �I25.10 - Atherosclerotic heart disease of [place] coronary artery without angina pectoris (ICD-10) Stroke �I63.9 - Cerebral infarction, unspecified (ICD-10) Hypothyroid �E03.9 - Hypothyroidism, unspecified (ICD-10) Sleep apnea �G47.30 - Sleep apnea, unspecified (ICD-10) HTN (hypertension) �I10 - Essential (primary) hypertension (ICD-10) Surgical History History of cardiac cath �Z98.890 - Other specified postprocedural states (ICD-10) History of carpal tunnel release �Z98.890 - Other specified postprocedural states (ICD-10) Meds Home Medications and Allergies Home Medications �Medication �Instructions �Recorded �Confirmed �Type Saccharomyces boulardii 250 mg 250 mg PO DAILY 08/06/23 08/10/24 History capsule (Digest Probiotic (S.boulardii)) acyclovir 400 mg tablet 400 mg PO DAILY 08/06/23 08/10/24 History alprazolam 0.5 mg tablet 0.5 mg PO DAILY 08/06/23 08/10/24 History aspirin 81 mg capsule 81 mg PO DAILY 08/06/23 08/10/24 History atorvastatin 80 mg tablet 80 mg PO DAILY 08/06/23 08/10/24 History bisoprolol 2.5 1 tab PO DAILY 08/06/23 08/10/24 History mg-hydrochlorothiazide 6.25 mg tablet clopidogrel 75 mg tablet 75 mg PO DAILY 08/06/23 08/10/24 History duloxetine 30 mg capsule,delayed 30 mg PO DAILY 08/06/23 08/10/24 History release (Cymbalta) hydrochlorothiazide 25 mg tablet 25 mg PO BID 08/06/23 08/10/24 History levothyroxine 125 mcg tablet 125 mcg PO DAILY 08/06/23 08/10/24 History (Euthyrox) baclofen 10 mg tablet 10 mg PO TID PRN spasms 05/04/24 08/10/24 History Allergies Allergy/AdvReac Type Severity Reaction Status Date / Time Penicillins Allergy Hives Verified 08/10/24 09:57 Sulfa (Sulfonamide Allergy Hives Verified 08/10/24 09:57 Antibiotics) Exam Constitutional Documenting provider has reviewed patient's vital signs: yes Common normals: no apparent distress, oriented x3, healthy appearing, alert and well nourished General appearance: cooperative HENOK Common normals: normocephalic, hearing grossly normal bilaterally and moist oral mucous membranes Head and scalp: normocephalic Eye Common normals: PERRL Pupil: PERRL Neck & C-Spine Common normals: full ROM General: normal visual inspection Chest Common normals: inspection of chest normal Respiratory Common normals: normal respiratory effort, no retractions and no use of accessory muscles Back & Pelvis Lumbar spine/lower back: lumbar ROM normal and straight leg raise negative bilaterally; no pain with ROM and no lumbar spinal tenderness Other: strength 5/5 in BLE sensation intact BLE Neuro Common normals: oriented x3 and CN's II-XII intact bilaterally Sensorium/orientation: alert Motor exam: no movement abnormalities noted Psych Common normals: mental status grossly normal, thought process normal, cooperative, affect normal, speech normal and activity/motor behavior normal Speech: normal speech Thought process: normal thought process Results Additional Findings Additional findings: If on a controlled substance or opioids, I have checked an [place] report on this patient and there are no aberrancies noted in the prescribing history.��If on a controlled substance or opioid a drug screen was completed and reviewed within the last year, and if there has not been a drug screen completed we ordered one today to monitor higher risk, state monitored pain medication use. As part of providing excellent, safe, comprehensive care, the following was completed at our patient's visit: 1. A medication reconciliation and review to ensure accurate knowledge of current/active medications, including asking our patients to inform us about any tomj-udk-spxhdax medications or herbal remedies/nutritional supplements/alternative remedies. 2. A review to specifically ensure our patients have had annual screening for screening for depression, screening for tobacco use, and screening for unhealthy alcohol use. For concerning screenings had a discussion with the patient, provided patient education, and recommended follow-up with primary care provider when appropriate. If patient noted with a risk of falling, they received education on strength, gait, and balance training to prevent future risk of falling. Portions of this note may have been carried over from the previous visit and updated as appropriate. Please note this office utilizes paper charting in addition to the electronic medical record. A list of current medications, vitals, and PMH is available there as the clinical staff outside of myself do not have access to [facility] charting during the clinic day operations. As part of providing quality comprehensive care the current medications, vitals, and PMH were reviewed in the paper chart. Assessment and Plan Assessment and Plan (1) Lumbar stenosis with neurogenic claudication: Assessment and Plan: 08/10/24 left L4/5 L5/S1 TFESI >90% improvement ongoing (2) Lumbar spondylosis: (3) Sacroiliitis: Plan continue HEP as tolerated continue current medications f/u 3 months, sooner if needed
== END 2024-09-02 10:36 | disposition home or self-care (01) ==
LOC: PM 10:35
PROVIDERS: Visit Provider Nurse Practitioner
DX: M48.062 Spinal stenosis, lumbar region with neurogenic claudication (principal); M47.816 Spondylosis without myelopathy or radiculopathy, lumbar region; M46.1 Sacroiliitis, not elsewhere classified
CPT/HCPCS: G0463